=== PATIENT | female | born 1940 | race Caucasian/White ===

== ENCOUNTER 2016-06-15 13:10 | Observation (INO) | payer MEDICARE, OTHER ==
[~2016-06-15] VITALS: Ht 165.1 cm; Wt 94.0 kg
[~2016-06-15 13:10] MED LIST: AMIO200T2 PO; CLON0.2T5 PO; DIGO125T6 PO; ERGO500014 PO; FURO40TA4 PO; HYDR-3671 PO; LISI-313 PO; METF500T4 PO; METO-429 PO; METO-448 PO; PANT40TA4 PO; POTA8CAP PO; ROSU20TA PO; UDROBDM PO; URE25 PO; WARF2TAB PO
[2016-06-15] MEDS ORDERED: APIX2.5T PO (14:16)
[2016-06-15] MEDS ORDERED: FURO40TA4 PO (14:17)
[2016-06-15] MEDS ORDERED: AMIO200T2 PO (14:17)
[2016-06-15] MEDS ORDERED: DIGO125T6 PO (14:17)
[2016-06-15] MEDS ORDERED: LEVO88TA3 PO (14:18)
[2016-06-15] MEDS ORDERED: LOSA50TA6 PO (14:18)
[2016-06-15] MEDS ORDERED: METF500T4 PO (14:18)
[2016-06-15] MEDS ORDERED: METO-429 PO (14:19)
[2016-06-15] MEDS ORDERED: METO50TA16 PO (14:19)
[2016-06-15] MEDS ORDERED: CRES10 PO (14:20)
[2016-06-15] MEDS ORDERED: POTA8CAP PO (14:20)
[2016-06-15 14:39] LABS: ADD SCAN DIFF NO
--- NOTE | 2016-06-15 14:39 | RADRPT ---
PROCEDURE: XR Chest. CLINICAL INDICATION: Chest pain TECHNIQUE: Chest AP portable. COMPARISON: 10/28/2015 FINDINGS: Left-sided AICD device The mediastinal structures are unremarkable. There is calcification of the thoracic aorta (consiste nt with atherosclerosis). There is moderate cardiac enlargement. There is pulmonary venous hyperte nsion. No consolidation is identified. The pleural spaces are unremarkable. There are senescent c hanges of the axial skeleton. IMPRESSION: Moderate cardiac enlargement. Pulmonary venous hypertension. RPTAT: HGDB .Jude Shah MD, MD Date Time Electronically viewed and signed by .Jude Shah MD, MD on 06/15/2016 14:38 .B/
[2016-06-15 14:44] LABS: ABNORMAL IP MESSAGE 1; BASOPHILS % 0.5 % (0.0-2.0); EOSINOPHILS # 0.1 10^3/ul (0.0-0.5); EOSINOPHILS % 2.1 % (0.0-7.0); HEMATOCRIT 35.3 % (37.0-47.0); LYMPHOCYTES # 0.4 10^3/ul (0.8-2.9); LYMPHOCYTES % 8.9 % (15.0-51.0); MEAN CORPUSCULAR HEMOGLOBIN 25.5 pg (29.0-33.0); MEAN CORPUSCULAR HGB CONC 31.2 g/dl (32.0-37.0); MEAN CORPUSCULAR VOLUME 81.9 fl (82.0-101.0); MONOCYTE # 0.4 10^3/ul (0.3-0.9); MONOCYTES % 9.1 % (0.0-11.0); NEUTROPHIL # 3.4 10^3/ul (1.6-7.5); NEUTROPHILS % 79.2 % (39.0-77.0); PLATELET COUNT 89 10^3/UL (140-415); RED BLOOD COUNT 4.31 10^6/ul (4.20-5.40); RED CELL DISTRIBUTION WIDTH 19.1 % (11.5-14.5); WHITE BLOOD COUNT 4.3 10^3/ul (4.8-10.8)
[2016-06-15 15:22] LABS: ALBUMIN 3.6 g/dl (3.3-4.9)
[2016-06-15 15:24] LABS: CREATININE 0.89 mg/dl (0.44-1.00)
[2016-06-15 15:25] LABS: ALBUMIN/GLOBULIN RATIO 0.87; BILIRUBIN,INDIRECT 0.8 mg/dl (0-1.1); BILIRUBIN,TOTAL 0.8 mg/dl (0.2-1.3); TOTAL PROTEIN 7.7 g/dl (6.1-8.1)
[2016-06-15 16:02] LABS: TROPONIN-I 0.013 ng/ml (0.00-0.12)
[2016-06-15] MEDS ORDERED: FUROSEMIDE 40 MG INJ IV ONE (16:30)
[2016-06-15 16:42] VITALS: TEMP 97.4
[2016-06-15] MEDS ORDERED: ACETAMINOPHEN 325 MG TAB PO PRN ×2 (17:00→17:30)
[2016-06-15] MEDS ORDERED: ONDANSETRON 4 MG INJ IV PRN ×2 (17:00→17:30)
--- NOTE | 2016-06-15 17:00 | ERA ---
ER Documentation Chief Complaint Date/Time DATE: 06/15/16 TIME: 16:49 Chief Complaint Complains of SOB x 2 weeks HPI This is 76-year-old female complains of gradual increasing shortness of breath on exertion and orthopnea. She also is complaining of the past 3 days of having some swelling to her legs. All these symptoms are new. No prior history of CHF. She says she has generalized weakness but no focal neurological complaints. No chest pain no cough no fever no decreased urine output. ROS All systems reviewed and are negative except as per history of present illness. Medications Home Meds Reported Medications Rosuvastatin Calcium* (Crestor*) 10 Mg Tablet, 10 MG PO QHS, #30 TAB 06/15/16 Potassium Chloride* (Potassium Chloride*) 8 Meq Capsule.er, 8 MEQ PO BID, CAP 06/15/16 Metoprolol Tartrate* (Lopressor*) 50 Mg Tab, 50 MG PO BID, #60 TAB 06/15/16 Metformin* (Glucophage*) 500 Mg Tab, 500 MG PO WITH BREAKFAST DINNE, #30 TAB 06/15/16 Losartan Potassium* (Losartan Potassium*) 50 Mg Tablet, 50 MG PO DAILY, TAB 06/15/16 Levothyroxine Sodium* (Levothyroxine Sodium*) 88 Mcg Tablet, 88 MCG PO BEFORE BREAKFAST, #30 TAB 06/15/16 Furosemide* (Furosemide*) 40 Mg Tablet, 40 MG PO DAILY, TAB 06/15/16 Amiodarone Hcl* (Amiodarone Hcl*) 200 Mg Tablet, 200 MG PO DAILY, #30 TAB 06/15/16 Digoxin* (Lanoxin*) 0.125 Mg Tablet, 0.125 MG PO DAILY, TAB 06/15/16 Apixaban* (Eliquis*) 2.5 Mg Tablet, 2.5 MG PO BID, TAB 06/15/16 Discontinued Reported Medications Metoprolol Succinate* (Toprol XL*) 50 Mg Tab.er.24h, MG PO DAILY, #30 TAB 06/15/16 Warfarin Sodium* (Coumadin*) 2 Mg Tablet, 4 MG PO DAILY, TAB 04/21/14 Warfarin Sodium* (Coumadin*) 2 Mg Tablet, 5 MG PO DAILY, TAB 04/21/14 Metoprolol Tartrate* (Lopressor*) 25 Mg Tab, 25 MG PO PM, TAB 04/21/14 Metoprolol Tartrate* (Lopressor*) 50 Mg Tab, 50 MG PO AM, TAB 04/21/14 Clonidine Hcl* (Clonidine Hcl*) 0.2 Mg Tablet, 0.2 MG PO BID, TAB 04/21/14 Hydralazine Hcl* (Hydralazine Hcl*) 25 Mg Tab, 25 MG PO Q8, TAB 04/21/14 Ergocalciferol* (Drisdol* (Vitamin D2)) 50,000 Unit Capsule, 48232 UNIT PO Q7D, CAP 04/21/14 Potassium Chloride* (Potassium Chloride*) 8 Meq Capsule.er, 8 MEQ PO BID, CAP 04/21/14 Rosuvastatin Calcium* (Crestor*) 20 Mg Tablet, 20 MG PO DAILY, TAB 04/21/14 Metformin* (Glucophage*) 500 Mg Tab, 500 MG PO BID, TAB 04/21/14 Lisinopril* (Lisinopril*) 5 Mg Tablet, 5 MG PO DAILY, TAB 04/21/14 Furosemide* (Furosemide*) 40 Mg Tablet, 40 MG PO DAILY, TAB 04/21/14 Digoxin* (Lanoxin*) 125 Mcg Tablet, 125 MCG PO DAILY 03/28/13 Amiodarone Hcl* (Amiodarone Hcl*) 200 Mg Tablet, 200 MG PO DAILY 03/28/13 Pantoprazole (Protonix) 40 Mg Tabec, 40 MG PO DAILY 03/28/13 Discontinued Scripts Guaifenesin-Dextromethorphan* (Robitussin* DM) 100MG/10MG/5ML Syrup, 10 ML PO Q6H Y for COUGH for 5 Days, ML Prov:MAYI MORALES PA-C 10/28/15 Bethanechol Chloride* (Urecholine*) 25 Mg Tab, 25 MG PO Q6, #100 TAB Prov:JÚNIOR KELLEY 04/28/14 Allergies Allergies: Coded Allergies: No Known Allergy (Unverified , 06/15/16) PMhx/Soc Medical and Surgical Hx: pt denies Surgical Hx History of Surgery: No Anesthesia Reaction: No Hx Neurological Disorder: No Hx Respiratory Disorders: No Hx Cardiac Disorders: Yes (Pacemaker placement ) Hx Psychiatric Problems: No Hx Miscellaneous Medical Probl: Yes (Anemia ) Hx Alcohol Use: No Hx Substance Use: No Hx Tobacco Use: No Smoking Status: Never smoker FmHx Family History: No coronary disease Physical Exam Vitals Vital Signs Date Time Temp Pulse Resp B/P Pulse Ox O2 Delivery O2 Flow Rate FiO2 06/15/16 16:42 97.4 80 18 146/69 100 Nasal Cannula 2.0 06/15/16 14:30 98.1 80 20 146/69 100 2.0 06/15/16 14:21 Nasal Cannula 2 06/15/16 13:28 2.0 06/15/16 13:17 99.6 80 20 143/63 95 Physical Exam Const: Well-developed, well-nourished Head: Atraumatic, normocephalic Eyes: Normal Conjunctiva, PERRLA, EOMI, normal sclera, no nystagmus ENT: Normal External Ears, Nose and Mouth, moist mucus membranes. Neck: Full range of motion. No meningismus, no lymphadenopathy. Resp: Clear to auscultation bilaterally, no wheezing, rhonchi, rales Cardio: Regular rate and rhythm, no murmurs, S1 S2 present Abd: Soft, non tender x 4, non distended. Normal bowel sounds, no guarding or rebound, no pulsitile abdominal masses or bruits Skin: No petechiae or rashes, no ecchymosis , no maculopapular rash Back: No midline or flank tenderness Ext: No cyanosis, slight edema bilateral legs left more than right, FROM x 4, normal inspection, neurovascularly intact x 4 Neur: Awake and alert, STR 5/5 x 4, sensation intact x 4, no focal findings, cerebellum intact Psych: Normal Mood and Affect Result Diagram: 06/15/16 1320 06/15/16 1320 Results 24 hrs Laboratory Tests Test 06/15/16 13:20 Alanine Aminotransferase (ALT/SGPT) 41IU/L Albumin 3.6g/dl Albumin/Globulin Ratio 0.87 Alkaline Phosphatase 113IU/L Anion Gap 17 Aspartate Amino Transf (AST/SGOT) 75IU/L B-Type Natriuretic Peptide 3590PG/ML Basophils # 0.010^3/ul Basophils % 0.5% Blood Urea Nitrogen 21mg/dl Calcium Level 9.0mg/dl Carbon Dioxide Level 27mmol/L Chloride Level 104mmol/L Creatinine 0.89mg/dl Direct Bilirubin 0.00mg/dl Eosinophils # 0.110^3/ul Eosinophils % 2.1% Globulin 4.10g/dl Glucose Level 175mg/dl Hematocrit 35.3% Hemoglobin 11.0g/dl Indirect Bilirubin 0.8mg/dl Lymphocytes # 0.410^3/ul Lymphocytes % 8.9% Mean Corpuscular Hemoglobin 25.5pg Mean Corpuscular Hemoglobin Concent 31.2g/dl Mean Corpuscular Volume 81.9fl Mean Platelet Volume fl Monocytes # 0.410^3/ul Monocytes % 9.1% Neutrophils # 3.410^3/ul Neutrophils % 79.2% Nucleated Red Blood Cells # 0.010^3/ul Nucleated Red Blood Cells % 0.0/100WBC Platelet Count 8910^3/UL Potassium Level 4.0mmol/L Red Blood Count 4.3110^6/ul Red Cell Distribution Width 19.1% Sodium Level 144mmol/L Total Bilirubin 0.8mg/dl Total Protein 7.7g/dl Troponin I 0.013ng/ml White Blood Count 4.310^3/ul Current Medications Medications (Trade) Dose Ordered Sig/Alistair Route PRN Reason Start Time Stop Time Status Last Admin Dose Admin Furosemide (Lasix) 40 mg ONCE ONCE IV 06/15/16 16:30 06/15/16 16:31 DC 06/15/16 16:36 Procedures/MDM PROCEDURE: XR Chest. CLINICAL INDICATION: Chest pain TECHNIQUE: Chest AP portable. COMPARISON: 10/28/2015 FINDINGS: Left-sided AICD device The mediastinal structures are unremarkable. There is calcification of the thoracic aorta (consistent with atherosclerosis). There is moderate cardiac enlargement. There is pulmonary venous hypertension. No consolidation is identified. The pleural spaces are unremarkable. There are senescent changes of the axial skeleton. IMPRESSION: Moderate cardiac enlargement. Pulmonary venous hypertension. RPTAT: HGDB .Jude Shah MD, MD Date Time Electronically viewed and signed by .Jude Shah MD, on 06/15/2016 14:38 .B/ CC: MAYRA DAY DO EKG: Rate/Rhythm: Electronic ventricular pacemaker heart rate 81 QRS, ST, QT: wide QRS, QT] Impression: [NORMAL EKG] Patient has elevated BNP of 3500. Patient is new onset CHF will admit for diuresis and cardiac workup Departure Diagnosis: Primary Impression: CHF (congestive heart failure) Qualified Code: I50.9 - Congestive heart failure, unspecified congestive heart failure chronicity, unspecified congestive heart failure type Condition: Stable MAYRA DAY DO Jun 15, 2016 16:59
[2016-06-15] MEDS ORDERED: hydrALAzine 20 MG INJ IV PRN (17:30)
[2016-06-15] MEDS ORDERED: GLUCAGON 1 MG INJ IM PRN (17:30)
[2016-06-15] MEDS ORDERED: GLUCOSE GEL 15 GRAM TUBE BUCCAL PRN (17:30)
[2016-06-15] MEDS ORDERED: GLUCOSE GEL 15 GRAM TUBE PO PRN ×2 (17:30)
[2016-06-15] MEDS ORDERED: MAGNESIUM HYDROXIDE 30ML CUP PO PRN (17:30)
[2016-06-15] MEDS ORDERED: HYDROCODONE/APAP (5/325) TAB PO PRN (17:30)
[2016-06-15] MEDS ORDERED: morphine 2 MG INJ IV PRN (17:30)
[2016-06-15] MEDS ORDERED: NACL 0.9% 3 ML SYG IV SCH (17:30)
[2016-06-15] MEDS ORDERED: DEXTROSE 50% 50 ML SYRINGE IV PRN ×2 (17:30)
[2016-06-15] MEDS ORDERED: BISACODYL (EC) 5 MG TAB PO PRN (17:30)
[2016-06-15] MEDS ORDERED: NITROGLYCERIN (SL) 0.4 MG TAB SL PRN (17:30)
[2016-06-15] MEDS: INSULIN ASPART [NOVOLOG] 3 ML PEN SC SCH ×2 (18:00→20:41)
[2016-06-15] MEDS ORDERED: LEVALBUTEROL (NEB) 0.31 MG/3 ML AMP HHN PRN (18:00)
[2016-06-15] MEDS: FUROSEMIDE 40 MG INJ IV SCH (18:00)
--- NOTE | 2016-06-15 18:18 | HP ---
DATE OF ADMISSION: 06/15/2016 TIME OF EVALUATION: 1700 hours. REASON FOR ADMISSION: Dyspnea. CONSULTATIONS: Dr. Mathew East, Cardiology. HISTORY OF PRESENT ILLNESS: This is a 76-year-old [place]oc[place] female with a known history of essential hypertension, type 2 diabetes mellitus, cardiomyopathy, atrial fibrillation, hypothyroidism, mild to moderate aortic stenosis, and sick sinus syndrome, status post pacemaker placement who came to the emergency room with chief complaint of dyspnea that has been going on for the past 2 weeks. The patient was also complaining of bilateral lower extremity edema for the past 3 days. The patient was complaining of a nonproductive cough. The patient denied any chest pain. The patient verbalized that she has been compliant with all her home medications. 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 The patient denied any fevers, chills, nausea, vomiting, abdominal pain, diarrhea, hematochezia or melena. She denied any dysuria, hematuria or urinary urgency or frequency. In the emergency room, the patient was noticed to have elevated BNP. The patient's chest x-ray showed moderate cardiac enlargement and pulmonary venous hypertension. The patient had an episode of mild febrile illness (99.6 degrees Fahrenheit) in the emergency room. The patient was treated with a single dose of IV Lasix in the emergency room. PAST MEDICAL HISTORY: Essential hypertension, type 2 diabetes mellitus, cardiomyopathy, atrial fibrillation, sick sinus syndrome, hypothyroidism, mild to moderate aortic stenosis. PAST SURGICAL HISTORY: Permanent pacemaker placement, back surgery. PAST HOME MEDICATIONS: 1. Eliquis 2.5 mg p.o. b.i.d. 2. Amiodarone 200 mg p.o. daily. 3. Digoxin 0.125 mg p.o. daily. 4. Losartan 50 mg p.o. daily. 5. Lopressor 50 mg p.o. b.i.d. 6. Crestor 10 mg p.o. at bedtime. 7. Lasix 40 mg p.o. daily. 8. Potassium chloride 8 mEq p.o. b.i.d. 9. Synthroid 88 mcg p.o. before breakfast. 10. Metformin 500 mg p.o. with breakfast and dinner. ALLERGIES: NO KNOWN DRUG ALLERGIES. SOCIAL HISTORY: The patient lives at home with her family. No recent history of tobacco, alcohol or illicit drug use. FAMILY HISTORY: Hypertension, diabetes, and CVA. REVIEW OF SYSTEMS: A 12-point review of systems was made, and review of systems was negative other than what is mentioned in history of present illness. PHYSICAL EXAMINATION: VITAL SIGNS: Temperature 97.4, pulse rate 80, respiratory rate 18, blood pressure 146/69, oxygen saturation 100% on 2 liters oxygen via nasal cannula. GENERAL: This is an obese [place] female sitting in bed in mild respiratory distress. HEENT: Normocephalic and atraumatic. Eyes: Anicteric sclerae. Conjunctivae clear. ENT: Nasal septum is midline. Oral mucosa is dry. NECK: Supple. No JVD noticed. RESPIRATORY: Bilaterally diminished breath sounds. Bilateral fine rales heard. Minimal use of accessory muscles of respiration. CARDIAC: Irregular rate and rhythm. Grade II to III/ systolic ejection murmur. GASTROINTESTINAL: Abdomen obese. Soft. Nondistended. Bowel sounds positive in all 4 quadrants. GENITOURINARY: Deferred. EXTREMITIES: No cyanosis, no clubbing. Bilateral lower extremity 2 to 3+ pitting edema. Peripheral pulses palpable. NEUROLOGIC: The patient is awake, alert and oriented. Cranial nerves are grossly intact. LABORATORY AND DIAGNOSTIC DATA: WBC 4.3, hemoglobin 11.0, hematocrit 37.3, platelet count 89. Sodium 144, potassium 4.0, chloride 104, carbon dioxide 27, anion gap 17, BUN 21, creatinine 0.89, glucose 175, calcium 9.0, AST 70, ALT 40 , alkaline phosphatase 113. Troponin I 0.013. BNP 359. Total protein 7.7, albumin 3.6. Chest x-ray: Moderate cardiac enlargement. Pulmonary venous hypertension. IMPRESSION: This is a 76-year-old [place]oc[place] female with multiple comorbidities who came to the emergency room with chief complaint of dyspnea, who was found to have evidence of congestive heart failure who will be admitted here for further treatment and evaluation. ASSESSMENT AND PLAN: 1. Acute respiratory failure. Hypoxic, most probably secondary to underlying congestive heart failure exacerbation. The patient will be maintained on supplemental oxygen. The patient will be maintained on p.r.n. inhaled bronchodilators. The patient will be adequately diuresed using diuretics. Cardiology consult will be obtained. 2. Acute on chronic congestive heart failure exacerbation. Systolic dysfunction. A 2D echocardiogram will be obtained to evaluate the left ventricular ejection fraction. Cardiology consult will be obtained. The patient will be carefully diuresed. 3. Essential hypertension. The patient's home antihypertensives will be resumed. The patient will also be started on p.r.n. antihypertensives for any systolic blood pressure readings greater than 160 mmHg. 4. Type 2 diabetes mellitus. The patient's metformin will be put on hold. The patient will be started on sliding scale insulin along with basal insulin and premeal insulin. Hemoglobin A1c will be obtained to evaluate the blood glucose control over the past few days. 5. Cardiomyopathy. The patient has a history of cardiomyopathy. The patient' s latest 2-D echocardiogram from 04/25/2014 showed ejection fraction of 50%. The patient is currently on ARBs and beta blockers, which will be continued. 6. Paroxysmal atrial fibrillation. The patient is currently on amiodarone. The patient is also on Apixaban for stroke prophylaxis. 7. Microcytic, hypochromic anemia. Etiology unclear. Will obtain an iron panel on this patient. We will monitor the H and H closely. 8. Thrombocytopenia. Etiology unclear. The patient has no evidence of any bleeding. The patient will be closely monitored for any bleeding. The patient is on therapeutic anticoagulation. 9. Mild to moderate aortic stenosis. The patient's volume status will be closely monitored. Rapid afterload reduction will be avoided. 10. Hypothyroidism. The patient will be resumed on Synthroid. A thyroid function panel will be obtained. Plan. The patient will be admitted to inpatient telemetry floor. The patient will be started on a carbohydrate controlled, low cholesterol diet. The patient will be started on gastrointestinal prophylaxis. The patient is already therapeutically anticoagulated. The patient will remain a FULL CODE. Activities will be as tolerated. The rest of the patient's management will be based on the clinical course, the results of diagnostic studies, as well as inputs from the consultants. Based on the patient's clinical presentation, she most probably requires at least a 2 midnights' stay for further management and evaluation of her clinical presentation. The case and management of this patient was fully discussed with Dr. Bennett. Approximately 60 minutes were spent on the history and physical on this patient. MARTY BENNETT MD, AM/NTS Conf#: [id number] DID#: [id number] CC: MATHEW EAST MD;*End* [facility]
--- NOTE | 2016-06-15 18:39 | CONS ---
DATE OF ADMISSION: 06/15/2016 DATE OF CONSULTATION: 06/15/2016 REASON FOR CONSULTATION: Congestive heart failure exacerbation. REQUESTING PHYSICIAN: Dr. Dave from the hospitalist service and Gama Velez from the hospita list service. HISTORY OF PRESENT ILLNESS: Ms. Albrecht is a 76-year-old female with history of cardiomyopathy with decreased left ventricular ejection fraction, last one approximately 50% by echo in 2013, prior to that it was 35%, permanent pacemaker/AICD placement, hypertension, atrial fibrillation, dyslipid emia, hypothyroidism who presents with 3 days of increasing shortness of breath, swelling of lower e xtremities and symptoms consistent with orthopnea. Upon arrival, temperature of 99.6, blood pressur e 143/63, pulse 80, respiratory 20, saturating 95%. Patient's labs showed white count 4.3, hemoglob in 11.0, platelet count 89. Sodium 144, potassium 4.0, creatinine 0.89, BUN 21, AST 75, ALT 41, tro ponin negative. BNP of 3590. The patient underwent a chest x-ray revealing moderate cardiac enlarg ement, pulmonary venous hypertension. The patient's electrocardiogram was ventricular paced rate of 81. The patient denied chest pain. The patient thus far has been treated with Lasix 40 mg IV x1, Zofran and Tylenol. PAST MEDICAL HISTORY: As above in HPI. MEDICATIONS CURRENTLY IN HOSPITAL: 1. Amiodarone 200 mg daily. 2. Digoxin 0.125 mg daily. 3. Cozaar 50 mg daily. 4. Synthroid 88 mcg daily. 5. Pepcid 10 mg q.6h. 6. Apixaban 2.5 mg p.o. b.i.d. 6. Lopressor 50 mg b.i.d. 7. Lipitor 40 mg at bedtime. 8. Lantus. 9. Lasix 40 mg IV b.i.d. 10. Insulin sliding scale. 11. Xopenex. 12. Sublingual nitroglycerin p.r.n. 13. Tram p.r.n. 14. Morphine p.r.n. 15. Dulcolax p.r.n. 16. Hydralazine p.r.n. ALLERGIES: NO KNOWN DRUG ALLERGIES. SOCIAL HISTORY: No tobacco, ETOH or illicit drug use. FAMILY HISTORY: No history of sudden cardiac or early CAD. REVIEW OF SYSTEMS: As above in HPI. CONSTITUTIONAL: No fevers, chills. PULMONARY: Shortness of breath. CARDIOVASCULAR: Congestive heart failure. GASTROINTESTINAL: No vomiting. GENITOURINARY: No hematuria. MUSCULOSKELETAL: Degenerative joint disease. PSYCHIATRIC: The patient denies depression. NEUROLOGIC: No documented history of CVA. PHYSICAL EXAMINATION VITAL SIGNS: Temperature 97.4, blood pressure 146/65, pulse 80, respiratory rate 18, saturation 100 %. GENERAL: The patient is alert, awake, complaining of shortness of breath and orthopnea. NECK: JVP approximately 9 to 10 cm water. CHEST: Bibasilar crackles. HEART: Regular rate and rhythm. Normal S1, S2, I/ systolic murmur. ABDOMEN: Positive bowel sounds, soft. EXTREMITIES: 1 to 2+ edema bilaterally, 1+ pulses bilaterally posterior tibial. LABORATORY DATA: As above in HPI. No further labs for my review at this time. IMAGING STUDIES: As above in HPI. No further imaging studies for my review at this time. ECG: As above in HPI. No further electrocardiograms for my review at this time. IMPRESSION: 1. Congestive heart failure, question at this time systolic versus diastolic, acute on chronic like ly. 2. Hypertension. 3. History of cardiomyopathy with most recently having a preserved left ventricular ejection of low er limits at 50% in 2014. 4. History of permanent pacemaker, question ICD. 5. History of cardiac arrhythmia with atrial fibrillation on amiodarone and Apixaban. 6. Dyslipidemia. 7. Diabetes mellitus. 8. Hypothyroidism. 9. Anemia. 10. Increased BNP, consistent with patient's congestive heart failure exacerbation. RECOMMENDATIONS: 1. At this time would admit patient to telemetry monitoring to follow rhythm and rate control close ly. 2. Complete a rule out for myocardial infarction to ensure the patient's constellation of symptoms are not due to any recent acute coronary syndrome such as acute myocardial infarction. 3. Would continue the patient's Lasix diuresis that has been ordered, following strict I's and O's. Grade diuresis closely. 4. Check a 2D echo to reassess patient's ejection fraction, wall motion, rule out any major valve a bnormalities. 5. Would check serial EKGs to assess for any significant ongoing changes, thus repeat EKG in the mo rning, EKG for any complaints of chest pain or change in rhythm. 6. Follow strict I's and O's. Grade the patient's diuresis closely. 7. Continue the patient's current amiodarone in an attempt to maintain sinus rhythm and Apixaban to prevent thromboembolic complications in the setting of paroxysmal atrial fibrillation. 8. Check a digoxin level and continue the patient's digoxin as necessary. 9. Further workup and treatment based on low dose ongoing clinical issues per PMD and alternative c onsultations. Thank you for allowing me to take part in the care of this patient. I will continue to follow very closely with you with further recommendations to be made as the patient progresses through her [facility] clinical course. Dictated By: MATHEW BACH/JARRELL Conf#: [id number] DID#: [id number] CC: GAMA VELEZ NP; NACHO DAVE MD;*End*
[2016-06-15 19:19] VITALS: PULSE 79
[2016-06-15 19:50] VITALS: BP 146/59; RESP 18
[2016-06-15 20:30] VITALS: Ht 165.1 cm; Wt 94.0 kg
[2016-06-15] MEDS: FAMOTIDINE 20 MG TAB PO SCH (20:42)
[2016-06-15] MEDS: ATORVASTATIN 40 MG TAB PO SCH (20:42)
[2016-06-15] MEDS: APIXABAN 5 MG TABLET PO SCH (20:42)
[2016-06-15] MEDS: METOPROLOL 50 MG TAB PO SCH (20:43)
[2016-06-15 20:59] VITALS: PULSE 80
[2016-06-15 21:04] LABS: INR 1.22; PROTIME 15.5 Sec (12.2-14.2); PT RATIO 1.2
[2016-06-15 21:05] LABS: PARTIAL THROMBOPLASTIN TIME 36.4 Sec (25.0-35.0)
[2016-06-15 21:07] LABS: IRON 54 ug/dl (35-150)
[2016-06-15 21:15] LABS: CK-MB 0.63 ng/ml (0.0-2.4)
[2016-06-15 21:16] LABS: TOTAL IRON BINDING CAPACITY 324 ug/dl (241-421)
[2016-06-15 21:18] LABS: TROPONIN-I 0.018 ng/ml (0.00-0.12)
[2016-06-15 21:37] LABS: THYROID STIMULATING HORMONE 10.1 MIU/L (0.465-4.680)
[2016-06-15] MEDS: INSULIN GLARGINE [LANtus] 3 ML PEN SC SCH (22:02)
[2016-06-16] VITALS (12 sets, daily range): BP systolic 110–135; BP diastolic 54–80; PULSE 80; RESP 15–20
[2016-06-16 02:27] LABS: URINE BILIRUBIN (Dip) NEGATIVE (NEGATIVE); URINE COLOR LT. YELLOW (YELLOW); URINE GLUCOSE (Dip) NEGATIVE (NEGATIVE); URINE KETONES (Dip) NEGATIVE (NEGATIVE); URINE LEUKOCYTE ESTERASE (Dip) NEGATIVE (NEGATIVE); URINE NITRITE (Dip) NEGATIVE (NEGATIVE); URINE TOTAL PROTEIN (Dip) NEGATIVE (NEGATIVE); URINE UROBILINOGEN (Dip) 0.2 E.U./dL (0.1-1.0)
[2016-06-16 02:28] LABS: ADD UMIC NO; URINE BLOOD (Dip) NEGATIVE (NEGATIVE)
[2016-06-16] MEDS: FUROSEMIDE 40 MG INJ IV SCH ×2 (05:34→17:36)
[2016-06-16] MEDS: LEVOTHYROXINE 88 MCG TAB PO SCH (06:16)
[2016-06-16 06:32] LABS: ABNORMAL IP MESSAGE 1; BASOPHILS % 0.7 % (0.0-2.0); EOSINOPHILS # 0.1 10^3/ul (0.0-0.5); EOSINOPHILS % 2.3 % (0.0-7.0); HEMATOCRIT 33.8 % (37.0-47.0); HEMOGLOBIN 10.4 g/dl (12.0-16.0); LYMPHOCYTES # 0.5 10^3/ul (0.8-2.9); LYMPHOCYTES % 12.4 % (15.0-51.0); MEAN CORPUSCULAR HEMOGLOBIN 25.1 pg (29.0-33.0); MEAN CORPUSCULAR HGB CONC 30.8 g/dl (32.0-37.0); MEAN CORPUSCULAR VOLUME 81.6 fl (82.0-101.0); MONOCYTE # 0.5 10^3/ul (0.3-0.9); MONOCYTES % 10.7 % (0.0-11.0); NEUTROPHIL # 3.1 10^3/ul (1.6-7.5); NEUTROPHILS % 73.4 % (39.0-77.0); PLATELET COUNT 98 10^3/UL (140-415); RED BLOOD COUNT 4.14 10^6/ul (4.20-5.40); WHITE BLOOD COUNT 4.3 10^3/ul (4.8-10.8)
[2016-06-16 06:50] LABS: ALBUMIN 3.2 g/dl (3.3-4.9)
[2016-06-16 06:51] LABS: POTASSIUM 3.7 mmol/L (3.5-5.1)
[2016-06-16 06:53] LABS: BILIRUBIN,INDIRECT 1.1 mg/dl (0-1.1); BILIRUBIN,TOTAL 1.1 mg/dl (0.2-1.3); CREATININE 0.95 mg/dl (0.44-1.00); MAGNESIUM 1.7 mg/dl (1.7-2.5); PHOSPHORUS 3.4 mg/dl (2.5-4.9)
[2016-06-16 06:54] LABS: ALBUMIN/GLOBULIN RATIO 0.88; CALCIUM 8.8 mg/dl (8.4-10.2); CHOL/HDL RATIO 5.1 RATIO; TOTAL PROTEIN 6.8 g/dl (6.1-8.1)
[2016-06-16 07:27] LABS: ADD SCAN DIFF HOLD/SCAN
[2016-06-16] MEDS: INSULIN ASPART [NOVOLOG] 3 ML PEN SC SCH ×7 (07:32→21:00)
[2016-06-16] MEDS: LOSARTAN 50 MG TAB PO SCH (09:06)
[2016-06-16] MEDS: DIGOXIN 0.125 MG TAB PO SCH (09:07)
[2016-06-16] MEDS: AMIODARONE 200 MG TAB PO SCH (09:07)
[2016-06-16] MEDS: APIXABAN 5 MG TABLET PO SCH ×2 (09:08→21:17)
[2016-06-16] MEDS: FAMOTIDINE 20 MG TAB PO SCH ×2 (09:08→21:18)
[2016-06-16] MEDS: METOPROLOL 50 MG TAB PO SCH ×2 (09:08→21:16)
--- NOTE | 2016-06-16 09:45 | PN ---
Date/Time of Note Date/Time of Note DATE: 06/16/16 TIME: 09:42 Assessment/Plan VTE Prophylaxis VTE Prophylaxis Intervention: other (Factor Xa inhibitors) Lines/Catheters IV [facility]from [facility] Urinary Cath still in place: No Assessment/Plan Chief Complaint/Hosp Course 1. Acute respiratory failure. Hypoxic. Most probably secondary to underlying congestive heart failure exacerbation. The patient will be maintained on supplemental oxygen. The patient will be maintained on p.r.n. inhaled bronchodilators. The patient will be adequately diuresed using diuretics. Cardiology following. 2. Acute on chronic congestive heart failure exacerbation. Systolic dysfunction. Pending 2D echocardiogram. The patient will be carefully diuresed. 3. Essential hypertension. Continue routine antihypertensives and p.r.n. antihypertensives for any systolic blood pressure readings greater than 160 mmHg. 4. Type 2 diabetes mellitus. Continue sliding scale insulin along with basal insulin and pre-meal insulin. Hemoglobin A1c 6.5. 5. Cardiomyopathy. The patient has a history of cardiomyopathy. The patient' s latest 2-D echocardiogram from 04/25/2014 showed ejection fraction of 50%. The patient is currently on ARBs and beta blockers, which will be continued. 6. Paroxysmal atrial fibrillation. The patient is currently on amiodarone. The patient is also on Apixaban for stroke prophylaxis. 7. Microcytic, hypochromic anemia. Etiology unclear. Iron panel showing low iron saturation. We will monitor the H and H closely. 8. Thrombocytopenia. Etiology unclear. The patient has no evidence of any bleeding. The patient will be closely monitored for any bleeding. The patient is on therapeutic anticoagulation. 9. Mild to moderate aortic stenosis. The patient's volume status will be closely monitored. Rapid afterload reduction will be avoided. 10. Hypothyroidism. The patient will be continued on Synthroid. 11. Fluids, electrolytes, and nutrition. Carbohydrate controlled, low- cholesterol diet 12. DVT prophylaxis. On factor Xa inhibitors. 13. Gastrointestinal prophylaxis. Histamine 2 receptor blockers. 14. Plan. Continue diuresis. Continue to optimize cardiac medications. Case discussed with Dr. Bennett. Problems: Subjective 24 Hr Interval Summary Free Text/Dictation Denies any chest pain. Breathing better. Exam/Review of Systems Vital Signs Vitals Vital Signs Date Time Temp Pulse Resp B/P Pulse Ox O2 Delivery O2 Flow Rate FiO2 06/16/16 08:20 80 06/16/16 07:18 98.8 20 128/60 95 06/16/16 01:48 2.0 28 06/15/16 18:30 Room Air Intake and Output 06/15/16 06/15/16 06/16/16 15:00 23:00 07:00 Intake Total 480 ml Balance 480 ml Exam GENERAL: This is an obese [place] female sitting in bed in no apparent distress. HEENT: Normocephalic and atraumatic. Eyes: Anicteric sclerae. Conjunctivae clear. ENT: Nasal septum is midline. Oral mucosa is dry. NECK: Supple. No JVD noticed. RESPIRATORY: Bilaterally diminished breath sounds. Bilateral fine rales heard. No use of accessory muscles of respiration. CARDIAC: Irregular rate and rhythm. Grade II to III/ systolic ejection murmur. GASTROINTESTINAL: Abdomen obese. Soft. Nondistended. Bowel sounds positive in all 4 quadrants. GENITOURINARY: Deferred. EXTREMITIES: No cyanosis, no clubbing. Bilateral lower extremity 2+ pitting edema. Peripheral pulses palpable. NEUROLOGIC: The patient is awake, alert and oriented. Cranial nerves are grossly intact. Results Result Diagram: 06/16/16 0550 06/16/16 0550 Results 24 hrs Laboratory Tests Test 06/15/16 13:20 06/15/16 20:10 06/15/16 20:20 06/15/16 21:30 Alanine Aminotransferase (ALT/SGPT) 41 Albumin 3.6 Albumin/Globulin Ratio 0.87 Alkaline Phosphatase 113 Anion Gap 17 H Aspartate Amino Transf (AST/SGOT) 75 H B-Type Natriuretic Peptide 3590 H Basophils # 0.0 Basophils % 0.5 Blood Urea Nitrogen 21 H Calcium Level 9.0 Carbon Dioxide Level 27 Chloride Level 104 Creatinine 0.89 Direct Bilirubin 0.00 Eosinophils # 0.1 Eosinophils % 2.1 Globulin 4.10 H Glucose Level 175 Hematocrit 35.3 L Hemoglobin 11.0 L Indirect Bilirubin 0.8 Lymphocytes # 0.4 L Lymphocytes % 8.9 L Mean Corpuscular Hemoglobin 25.5 L Mean Corpuscular Hemoglobin Concent 31.2 L Mean Corpuscular Volume 81.9 L Mean Platelet Volume Monocytes # 0.4 Monocytes % 9.1 Neutrophils # 3.4 Neutrophils % 79.2 H Nucleated Red Blood Cells # 0.0 Nucleated Red Blood Cells % 0.0 Platelet Count 89 L Potassium Level 4.0 Red Blood Count 4.31 Red Cell Distribution Width 19.1 H Sodium Level 144 Total Bilirubin 0.8 Total Protein 7.7 Troponin I 0.013 0.018 White Blood Count 4.3 #L Bedside Glucose 107 Activated Partial Thromboplast Time 36.4 H Creatine Kinase 43 Creatine Kinase Index 1.5 Creatinine Kinase MB (Mass) 0.63 Digoxin Level 0.9 L Ferritin 39.5 Free Thyroxine 2.09 Hemoglobin A1c 6.5 H INR International Normalized Ratio 1.22 Iron Level 54 Percent Iron Saturation 17 L Prothrombin Time 15.5 H Prothrombin Time Ratio 1.2 Thyroid Stimulating Hormone (TSH) 10.100 H Total Iron Binding Capacity 324 Vitamin D 1,25-Dihydroxy 35.4 Urine Bilirubin NEGATIVE Urine Clarity CLEAR Urine Color LT. YELLOW Urine Glucose NEGATIVE Urine Hemoglobin NEGATIVE Urine Ketones NEGATIVE Urine Leukocyte Esterase NEGATIVE Urine Nitrite NEGATIVE Urine Specific [place] 1.010 Urine Total Protein NEGATIVE Urine Urobilinogen 0.2 E.U./dL Urine pH 6.5 Test 06/16/16 05:50 06/16/16 07:31 Alanine Aminotransferase (ALT/SGPT) 44 Albumin 3.2 L Albumin/Globulin Ratio 0.88 Alkaline Phosphatase 100 Anion Gap 15 Aspartate Amino Transf (AST/SGOT) 72 H B-Type Natriuretic Peptide 4320 H Basophils # 0.0 Basophils % 0.7 Blood Urea Nitrogen 20 Calcium Level 8.8 Carbon Dioxide Level 29 Chloride Level 105 Cholesterol Level 143 Cholesterol/HDL Ratio 5.1 Creatinine 0.95 Direct Bilirubin 0.00 Eosinophils # 0.1 Eosinophils % 2.3 Globulin 3.60 H Glucose Level 114 # HDL Cholesterol 28 L Hematocrit 33.8 L Hemoglobin 10.4 L Indirect Bilirubin 1.1 LDL Cholesterol, Calculated 91 Lymphocytes # 0.5 L Lymphocytes % 12.4 L Magnesium Level 1.7 Mean Corpuscular Hemoglobin 25.1 L Mean Corpuscular Hemoglobin Concent 30.8 L Mean Corpuscular Volume 81.6 L Mean Platelet Volume Monocytes # 0.5 Monocytes % 10.7 Neutrophils # 3.1 Neutrophils % 73.4 Nucleated Red Blood Cells # 0.0 Nucleated Red Blood Cells % 0.0 Phosphorus Level 3.4 Platelet Count 98 L Potassium Level 3.7 Red Blood Count 4.14 L Red Cell Distribution Width 19.0 H Sodium Level 145 H Total Bilirubin 1.1 Total Protein 6.8 Triglycerides Level 122 White Blood Count 4.3 L Bedside Glucose 116 Medications Medications Current Medications Ondansetron HCl (Zofran Inj) 4 mg Q6H PRN IV NAUSEA AND/OR VOMITING; Start 06/15 at 17:30 Nitroglycerin (Nitroglycerin (Sl Tab) 0.4 Mg) 1 tab Q5M PRN SL CHEST PAIN; Start 06/15/16 at 17:30 Acetaminophen (Tylenol Tab) 650 mg Q6H PRN PO PAIN LEVEL 1-3 OR FEVER; Start at 17:30 Acetaminophen/ Hydrocodone Bitart ([place] (5/325)) 1 tab Q6H PRN PO PAIN LEVEL 4 -6; Start 06/15/16 at 17:30 Morphine Sulfate (morphine) 2 mg Q4H PRN IV PAIN LEVEL 7-10; Start 06/15/16 at 17:30 Magnesium Hydroxide (Milk Of Mag) 30 ml DAILY PRN PO CONSTIPATION; Start at 17:30 Bisacodyl (Dulcolax) 5 mg DAILY PRN PO CONSTIPATION; Start 06/15/16 at 17:30 Famotidine (Pepcid) 10 mg Q12 PO Last administered on 06/16/16 09:08; Admin Dose 10 MG; Start 06/15/16 at 21:00 Amiodarone HCl (Cordarone) 200 mg DAILY PO Last administered on 06/16/16 09:07 ; Admin Dose 200 MG; Start 06/16/16 at 09:00 Apixaban (Eliquis) 2.5 mg BID PO Last administered on 06/16/16 09:08; Admin Dose 2.5 MG; Start 06/15/16 at 21:00 Digoxin (Digoxin) 0.125 mg DAILY PO Last administered on 06/16/16 09:07; Admin Dose 0.125 MG; Start 06/16/16 at 09:00 Losartan Potassium (Cozaar) 50 mg DAILY PO Last administered on 06/16/16 09:06 ; Admin Dose 50 MG; Start 06/16/16 at 09:00 Metoprolol Tartrate (Lopressor) 50 mg BID PO Last administered on 06/16/16 09: 08; Admin Dose 50 MG; Start 06/15/16 at 21:00 Atorvastatin Calcium (Lipitor) 40 mg DAILY@21 PO Last administered on 06/15/16 20:42; Admin Dose 40 MG; Start 06/15/16 at 21:00 Hydralazine HCl (Apresoline) 10 mg Q6H PRN IV SBP>160; Start 06/15/16 at 17:30 Insulin Glargine (Lantus) 9 unit DAILY@20 SC Last administered on 06/15/16 22: 02; Admin Dose 9 UNIT; Start 06/15/16 at 20:00 Miscellaneous Information 1 ea NOTE XX ; Start 06/15/16 at 17:30 Glucose (Glutose) 15 gm Q15M PRN PO DECREASED GLUCOSE; Start 06/15/16 at 17:30 Glucose (Glutose) 22.5 gm Q15M PRN PO DECREASED GLUCOSE; Start 06/15/16 at 17:30 Dextrose (D50w Syringe) 25 ml Q15M PRN IV DECREASED GLUCOSE; Start 06/15/16 at 17:30 Dextrose (D50w Syringe) 50 ml Q15M PRN IV DECREASED GLUCOSE; Start 06/15/16 at 17:30 Glucagon (Glucagen) 1 mg Q15M PRN IM DECREASED GLUCOSE; Start 06/15/16 at 17:30 Glucose (Glutose) 15 gm Q15M PRN BUCCAL DECREASED GLUCOSE; Start 06/15/16 at 17: 30 MARTY HOLLAND NP Jun 16, 2016 09:45
--- NOTE | 2016-06-16 14:43 | CONS ---
Date/Time of Note Date/Time of Note DATE: 06/16/16 TIME: 14:40 Assessment/Plan Assessment/Plan Chief Complaint/Hosp Course IMPRESSION: 1. Congestive heart failure, question at this time systolic versus diastolic, acute on chronic likely. 2. Hypertension. 3. History of cardiomyopathy with most recently having a preserved left ventricular ejection of lower limits at 50% in 2013. 4. History of permanent pacemaker, question ICD.-V pacing 100% 5. History of cardiac arrhythmia with atrial fibrillation on amiodarone and Apixaban. 6. Dyslipidemia. 7. Diabetes mellitus. 8. Hypothyroidism. 9. Anemia. 10. Increased BNP, consistent with patient's congestive heart failure exacerbation. 11.Edema-assymetric L>R Recc: -Tele -serial ecg's -Continue BB/ACEI -Continue eliquis -Venous BART to rule out DVT -Continue statin Problems: Consultation Date/Type/Reason Admit Date/Time Jun 15, 2016 at 16:48 Initial Consult Date 06/15/16 Type of Consultation: Cardiology Reason for Consultation CHF/cardiomyopathy Referring Provider: MARTY HOLLAND THERAPEUTIC PROGRAM WORKER Exam/Review of Systems Vital Signs Vitals Vital Signs Date Time Temp Pulse Resp B/P Pulse Ox O2 Delivery O2 Flow Rate FiO2 06/16/16 12:35 80 06/16/16 11:16 98.7 20 116/57 96 06/16/16 07:45 Nasal Cannula 2.0 06/16/16 01:48 28 Intake and Output 06/15/16 06/15/16 06/16/16 15:00 23:00 07:00 Intake Total 480 ml Balance 480 ml Exam Review of Systems: CONSTITUTIONAL: No fevers, chills. PULMONARY: No sob CARDIOVASCULAR: No chest pain/palpitations GASTROINTESTINAL: No nausea/vomiting. GENITOURINARY: No hematuria/dysuria. MUSCULOSKELETAL: No myagias/arthalgias. PSYCHIATRIC: The patient denies depression. NEUROLOGIC: No weakness Constitutional: alert Psych: no complaints Head: normocephalic ENMT: mucosa pink and moist Neck: jvd (9 cm water) Respiratory: diminished breath sounds (at bases/B) Cardiovascular: regular rate and rhythm Gastrointestinal: non-tender, soft Musculoskeletal: muscle tone (normal) Extremities: pitting pedal edema (assymetric) Neurological: other (No focal deficits) Results Result Diagram: 06/16/16 0550 06/16/16 0550 Results 24 hrs Laboratory Tests Test 06/15/16 20:10 06/15/16 20:20 06/15/16 21:30 06/16/16 05:50 Bedside Glucose 107 Activated Partial Thromboplast Time 36.4 H Creatine Kinase 43 Creatine Kinase Index 1.5 Creatinine Kinase MB (Mass) 0.63 Digoxin Level 0.9 L Ferritin 39.5 Free Thyroxine 2.09 Hemoglobin A1c 6.5 H INR International Normalized Ratio 1.22 Iron Level 54 Percent Iron Saturation 17 L Prothrombin Time 15.5 H Prothrombin Time Ratio 1.2 Thyroid Stimulating Hormone (TSH) 10.100 H Total Iron Binding Capacity 324 Troponin I 0.018 Vitamin D 1,25-Dihydroxy 35.4 Urine Bilirubin NEGATIVE Urine Clarity CLEAR Urine Color LT. YELLOW Urine Glucose NEGATIVE Urine Hemoglobin NEGATIVE Urine Ketones NEGATIVE Urine Leukocyte Esterase NEGATIVE Urine Nitrite NEGATIVE Urine Specific [place] 1.010 Urine Total Protein NEGATIVE Urine Urobilinogen 0.2 E.U./dL Urine pH 6.5 Alanine Aminotransferase (ALT/SGPT) 44 Albumin 3.2 L Albumin/Globulin Ratio 0.88 Alkaline Phosphatase 100 Anion Gap 15 Aspartate Amino Transf (AST/SGOT) 72 H B-Type Natriuretic Peptide 4320 H Basophils # 0.0 Basophils % 0.7 Blood Urea Nitrogen 20 Calcium Level 8.8 Carbon Dioxide Level 29 Chloride Level 105 Cholesterol Level 143 Cholesterol/HDL Ratio 5.1 Creatinine 0.95 Direct Bilirubin 0.00 Eosinophils # 0.1 Eosinophils % 2.3 Globulin 3.60 H Glucose Level 114 # HDL Cholesterol 28 L Hematocrit 33.8 L Hemoglobin 10.4 L Indirect Bilirubin 1.1 LDL Cholesterol, Calculated 91 Lymphocytes # 0.5 L Lymphocytes % 12.4 L Magnesium Level 1.7 Mean Corpuscular Hemoglobin 25.1 L Mean Corpuscular Hemoglobin Concent 30.8 L Mean Corpuscular Volume 81.6 L Mean Platelet Volume Monocytes # 0.5 Monocytes % 10.7 Neutrophils # 3.1 Neutrophils % 73.4 Nucleated Red Blood Cells # 0.0 Nucleated Red Blood Cells % 0.0 Phosphorus Level 3.4 Platelet Count 98 L Potassium Level 3.7 Red Blood Count 4.14 L Red Cell Distribution Width 19.0 H Sodium Level 145 H Total Bilirubin 1.1 Total Protein 6.8 Triglycerides Level 122 White Blood Count 4.3 L Test 06/16/16 06:30 06/16/16 07:31 06/16/16 11:32 Stool Occult Blood NEGATIVE Bedside Glucose 116 146 Medications Medications Current Medications Ondansetron HCl (Zofran Inj) 4 mg Q6H PRN IV NAUSEA AND/OR VOMITING; Start 06/15 at 17:30 Nitroglycerin (Nitroglycerin (Sl Tab) 0.4 Mg) 1 tab Q5M PRN SL CHEST PAIN; Start 06/15/16 at 17:30 Acetaminophen (Tylenol Tab) 650 mg Q6H PRN PO PAIN LEVEL 1-3 OR FEVER; Start at 17:30 Acetaminophen/ Hydrocodone Bitart ([place] (5/325)) 1 tab Q6H PRN PO PAIN LEVEL 4 -6; Start 06/15/16 at 17:30 Morphine Sulfate (morphine) 2 mg Q4H PRN IV PAIN LEVEL 7-10; Start 06/15/16 at 17:30 Magnesium Hydroxide (Milk Of Mag) 30 ml DAILY PRN PO CONSTIPATION; Start at 17:30 Bisacodyl (Dulcolax) 5 mg DAILY PRN PO CONSTIPATION; Start 06/15/16 at 17:30 Famotidine (Pepcid) 10 mg Q12 PO Last administered on 06/16/16 09:08; Admin Dose 10 MG; Start 06/15/16 at 21:00 Amiodarone HCl (Cordarone) 200 mg DAILY PO Last administered on 06/16/16 09:07 ; Admin Dose 200 MG; Start 06/16/16 at 09:00 Apixaban (Eliquis) 2.5 mg BID PO Last administered on 06/16/16 09:08; Admin Dose 2.5 MG; Start 06/15/16 at 21:00 Digoxin (Digoxin) 0.125 mg DAILY PO Last administered on 06/16/16 09:07; Admin Dose 0.125 MG; Start 06/16/16 at 09:00 Losartan Potassium (Cozaar) 50 mg DAILY PO Last administered on 06/16/16 09:06 ; Admin Dose 50 MG; Start 06/16/16 at 09:00 Metoprolol Tartrate (Lopressor) 50 mg BID PO Last administered on 06/16/16 09: 08; Admin Dose 50 MG; Start 06/15/16 at 21:00 Atorvastatin Calcium (Lipitor) 40 mg DAILY@21 PO Last administered on 06/15/16 20:42; Admin Dose 40 MG; Start 06/15/16 at 21:00 Hydralazine HCl (Apresoline) 10 mg Q6H PRN IV SBP>160; Start 06/15/16 at 17:30 Insulin Glargine (Lantus) 9 unit DAILY@20 SC Last administered on 06/15/16 22: 02; Admin Dose 9 UNIT; Start 06/15/16 at 20:00 Miscellaneous Information 1 ea NOTE XX ; Start 06/15/16 at 17:30 Glucose (Glutose) 15 gm Q15M PRN PO DECREASED GLUCOSE; Start 06/15/16 at 17:30 Glucose (Glutose) 22.5 gm Q15M PRN PO DECREASED GLUCOSE; Start 06/15/16 at 17:30 Dextrose (D50w Syringe) 25 ml Q15M PRN IV DECREASED GLUCOSE; Start 06/15/16 at 17:30 Dextrose (D50w Syringe) 50 ml Q15M PRN IV DECREASED GLUCOSE; Start 06/15/16 at 17:30 Glucagon (Glucagen) 1 mg Q15M PRN IM DECREASED GLUCOSE; Start 06/15/16 at 17:30 Glucose (Glutose) 15 gm Q15M PRN BUCCAL DECREASED GLUCOSE; Start 06/15/16 at 17: 30 MATHEW AMADO Jun 16, 2016 14:43
--- NOTE | 2016-06-16 15:25 | RADRPT ---
Echocardiogram Report Patient Name: TAMARA BERNSTEIN Gender: Female Date: 1940 Study Date: 16-Jun-2016 Marine Electronics Technician: [facility] Location: 501 Ref. Physician: MARTY HOLLAND Quality: Technically Difficult Study Procedures: Transthoracic echocardiogram with complete 2D, M-Mode, and doppler examination. Indications: Evaluate Left Ventricular function. 2D/M Mode Doppler Measurement Value Normal Ranges Measurement Value Normal Ranges LVIDd 2D 4.4 3.5 - 5.6 cm STEFAN Vmax 1.0 cm2 LVIDs 2D 3.3 2.1 - 4.1 cm STEFAN VTI 1.0 cm2 FS 2D 25.8 % AV Mean Ashutosh 2.6 m/sec LVPWd 2D 0.9 0.6 - 1.1 cm AV Mean PG 31.0 mmHg IVSd 2D 1.0 0.6 - 1.1 cm AV Peak Ashutosh 3.6 m/sec IVS/LVPW 2D 1.0 AV Peak PG 51.0 mmHg AoR Diam 2D 2.3 2.0 - 3.7 cm AV VTI 82.5 cm LA/Ao 2D 2 0 - 1 LVOT Mean Ashutosh 0.7 m/sec EDV 2D 88.1 cm3 LVOT Mean PG 2.0 mmHg ESV 2D 35.9 cm3 LVOT Peak Ashutosh 1.0 m/sec LA Dimen 2D 4.8 2.3 - 4.0 cm LVOT Peak PG 4.0 mmHg LVOT Diam 2.1 cm LVOT VTI 24.5 cm LVOT Area 3.5 cm2 MV E Peak Ashutosh 1.1 m/sec MV Decel Time 197 msec MR Peak PG 90.0 mmHg MR Peak Ashutosh 4.8 m/sec TR Peak Ashutosh 2.9 m/sec TR Peak PG 34.0 mmHg Findings Left Ventricle: Normal left ventricular cavity size. Left ventricular wall thickness upper limits of normal. Mild left ventricular systolic dysfunction. Ejection fraction is visually estimated at 40 %. Abnormal Diastolic Function. These segments of the LV are hypokinetic apical septum and apex. Right Ventricle: Mild right ventricular systolic dysfunction. Mild enlargement of right ventricle. Mild right ventricular hypokinesis. Pacemaker right heart. Left Atrium: There is moderate enlargement of left atrium. Right Atrium: There is moderate enlargement of right atrium. Mitral Valve: Mild mitral leaflet calcification. Mild mitral annular calcification. Mild mitral valve regurgitation. Aortic Valve: Mild aortic stenosis. Aortic valve Max velocity 3.57 m/sec. Max PG 51.00 mmHg. Mean PG 31.00 mmHg. Aortic valve area 1.03 cm2. Aortic cusps appear moderately calcified. Mild aortic valve regurgitation. Tricuspid Valve: Tricuspid valve not well visualized. Estimated peak PA systolic pressure 50 mmHg. There is mild tricuspid regurgitation. Pericardium: Left pleural effusion seen. Aorta: Normal aortic root. IVC: Dilated IVC with respiratory collapse consistent with elevated right atrial pressure. Conclusions 1.Normal left ventricular cavity size. Left ventricular wall thickness upper limits of normal. Mild left ventricular systolic dysfunction. Ejection fraction is visually estimated at 40 %. Abnormal Diastolic Function. These segments of the LV are hypokinetic apical septum and apex. 2.Mild right ventricular systolic dysfunction.. Mild enlargement of right ventricle. Mild right ventricular hypokinesis. Pacemaker right heart. 3.There is moderate enlargement of right atrium. 4.Mild mitral valve regurgitation. 5.Mild aortic stenosis. Mild aortic valve regurgitation. 6.Estimated peak PA systolic pressure 50 mmHg. There is mild tricuspid regurgitation. Electronically Signed By: Anthony East 16-Jun-2016 15:24:29 -0800 Patient Name: TAMARA BERNSTEIN Study Date: 16-Jun-[id number]
--- NOTE | 2016-06-16 17:19 | RADRPT ---
Vent Rate: 80 bpm RR Interval: 0 msec NM Interval: 0 msec QRS Duration: 188 msec QT Interval: 458 msec QTC Interval: 528 msec P-R-T [place]: 0 - -60 - 114 degrees Electronic ventricular pacemaker Electronically Signed By: Nic Ayon [id number]
[2016-06-16] MEDS: ATORVASTATIN 40 MG TAB PO SCH (21:16)
[2016-06-16] MEDS: INSULIN GLARGINE [LANtus] 3 ML PEN SC SCH (21:22)
[2016-06-17] VITALS (8 sets, daily range): BP systolic 111–131; BP diastolic 54–72; PULSE 79–80; RESP 18–20
--- NOTE | 2016-06-17 00:37 | RADRPT ---
PROCEDURE: Ultrasound of the bilateral lower extremity venous system. CLINICAL INDICATION: Bilateral leg pain and swelling, deep venous thrombosis TECHNIQUE: Silverman scale with and without compression, color doppler, spectral doppler of the venous system of the bilateral lower extremities was performed. Venous augmentation maneuvers were utilized . COMPARISON: No prior studies are available for comparison. FINDINGS: RIGHT: Common femoral vein: Patent. Superficial femoral vein: Patent. Popliteal vein: Patent. Calf veins: Patent. No soft tissue abnormalities are identified. LEFT: Common femoral vein: Patent. Superficial femoral vein: Patent. Popliteal vein: Patent. Calf veins: Patent. No soft tissue abnormalities are identified. IMPRESSION: No evidence of a deep vein thrombosis within the bilateral lower extremities. RPTAT: AADD .Feroz Hamm MD, MD Date Time Electronically viewed and signed by .Feroz Hamm MD, MD on 06/17/2016 00:37 .B/
[2016-06-17] MEDS: FUROSEMIDE 40 MG INJ IV SCH (06:19)
[2016-06-17] MEDS: LEVOTHYROXINE 88 MCG TAB PO SCH (06:21)
[2016-06-17 07:20] LABS: ADD SCAN DIFF NO
[2016-06-17 07:37] LABS: BASOPHILS % 0.3 % (0.0-2.0); EOSINOPHILS # 0.1 10^3/ul (0.0-0.5); EOSINOPHILS % 1.9 % (0.0-7.0); HEMATOCRIT 32.4 % (37.0-47.0); HEMOGLOBIN 10.6 g/dl (12.0-16.0); LYMPHOCYTES # 0.6 10^3/ul (0.8-2.9); LYMPHOCYTES % 13.1 % (15.0-51.0); MAGNESIUM 1.7 mg/dl (1.7-2.5); MEAN CORPUSCULAR HEMOGLOBIN 26.3 pg (29.0-33.0); MEAN CORPUSCULAR HGB CONC 32.9 g/dl (32.0-37.0); MEAN CORPUSCULAR VOLUME 80.1 fl (82.0-101.0); MEAN PLATELET VOLUME 11.2 fl (7.4-10.4); MONOCYTE # 0.5 10^3/ul (0.3-0.9); MONOCYTES % 10.9 % (0.0-11.0); NEUTROPHIL # 3.4 10^3/ul (1.6-7.5); NEUTROPHILS % 73.8 % (39.0-77.0); PHOSPHORUS 3.8 mg/dl (2.5-4.9); PLATELET COUNT 96 10^3/UL (140-440); POTASSIUM 3.8 mmol/L (3.5-5.1); RED BLOOD COUNT 4.04 10^6/ul (4.20-5.40); RED CELL DISTRIBUTION WIDTH 19.6 % (11.5-14.5); WHITE BLOOD COUNT 4.6 10^3/ul (4.8-10.8)
[2016-06-17 07:39] LABS: CREATININE 1.03 mg/dl (0.44-1.00)
[2016-06-17 07:40] LABS: CALCIUM 9.1 mg/dl (8.4-10.2)
[2016-06-17] MEDS: INSULIN ASPART [NOVOLOG] 3 ML PEN SC SCH ×4 (07:48→12:00)
[2016-06-17] MEDS: DIGOXIN 0.125 MG TAB PO SCH (08:38)
[2016-06-17] MEDS: AMIODARONE 200 MG TAB PO SCH (08:38)
[2016-06-17] MEDS: LOSARTAN 50 MG TAB PO SCH (08:39)
[2016-06-17] MEDS: FAMOTIDINE 20 MG TAB PO SCH (08:39)
[2016-06-17] MEDS: METOPROLOL 50 MG TAB PO SCH (08:39)
[2016-06-17] MEDS: APIXABAN 5 MG TABLET PO SCH (08:40)
--- NOTE | 2016-06-17 11:41 | PDOCDIS ---
Discharge Instructions DIAGNOSIS Discharge Diagnosis: CHF exacerbation. CONDITION Patient Condition: Stable HOME CARE INSTRUCTIONS: Special Diet: Cardiac, carbohydrate controlled OTHER ORDERS: Other Orders: 1. Take a low-cholesterol, carotid controlled diet. 2. Resume activities as tolerated. 3. Follow-up with Dr. East in 2 weeks. 4. Take medications as per prescription. 5. Please call 911 or go to the nearest emergency room if you have significant shortness of breath or chest pain. MARTY HOLLAND NP Jun 17, 2016 11:41
[2016-06-17] MEDS ORDERED: FURO40TA4 PO (11:43)
--- NOTE | 2016-06-17 13:56 | CONS ---
Date/Time of Note Date/Time of Note DATE: 06/17/16 TIME: 13:52 Assessment/Plan Assessment/Plan Chief Complaint/Hosp Course IMPRESSION: 1. Congestive heart failure, question at this time systolic versus diastolic, acute on chronic likely. 2. Hypertension. 3. History of cardiomyopathy with most recently having a preserved left ventricular ejection of lower limits at 50% in 2013. 4. History of permanent pacemaker, question ICD.-V pacing 100% 5. History of cardiac arrhythmia with atrial fibrillation on amiodarone and Apixaban. 6. Dyslipidemia. 7. Diabetes mellitus. 8. Hypothyroidism. 9. Anemia. 10. Increased BNP, consistent with patient's congestive heart failure exacerbation. 11.Edema-assymetric L>R Recc: -Tele -serial ecg's -Continue BB/ACEI -Continue eliquis -Continue statin -Continue lasix diuresis Problems: Consultation Date/Type/Reason Admit Date/Time Jun 15, 2016 at 16:48 Initial Consult Date 06/15/16 Type of Consultation: Cardiology Reason for Consultation CHF Referring Provider: MARTY HOLLAND ASSOCIATE PROFESSOR OF MEDIA ARTS Exam/Review of Systems Vital Signs Vitals Vital Signs Date Time Temp Pulse Resp B/P Pulse Ox O2 Delivery O2 Flow Rate FiO2 06/17/16 11:10 98.8 81 18 111/54 93 06/17/16 08:45 Nasal Cannula 2.0 06/16/16 01:48 28 Intake and Output 06/16/16 06/16/16 06/17/16 15:00 23:00 07:00 Intake Total 240 ml 400 ml Balance 240 ml 400 ml Exam Review of Systems: CONSTITUTIONAL: No fevers, chills. PULMONARY: mild sob CARDIOVASCULAR: No chest pain/palpitations GASTROINTESTINAL: No nausea/vomiting. GENITOURINARY: No hematuria/dysuria. MUSCULOSKELETAL: No myagias/arthalgias. PSYCHIATRIC: The patient denies depression. NEUROLOGIC: No weakness Constitutional: alert, oriented Psych: no complaints Head: normocephalic ENMT: mucosa pink and moist Neck: jvd (9 cm water), supple Respiratory: diminished breath sounds (at bases/B) Cardiovascular: regular rate and rhythm Gastrointestinal: non-tender, soft Musculoskeletal: muscle tone (normal) Extremities: edema (trace/B) Neurological: other (No focal deficits) Results Result Diagram: 06/17/16 0600 06/17/16 0600 Results 24 hrs Laboratory Tests Test 06/16/16 17:26 06/16/16 20:19 06/17/16 06:00 06/17/16 07:43 Bedside Glucose 140 167 119 Anion Gap 15 Basophils # 0.0 Basophils % 0.3 Blood Morphology Comment Blood Urea Nitrogen 24 H Calcium Level 9.1 Carbon Dioxide Level 32 H Chloride Level 101 Creatinine 1.03 H Eosinophils # 0.1 Eosinophils % 1.9 Glucose Level 152 Hematocrit 32.4 L Hemoglobin 10.6 L Lymphocytes # 0.6 L Lymphocytes % 13.1 L Magnesium Level 1.7 Mean Corpuscular Hemoglobin 26.3 L Mean Corpuscular Hemoglobin Concent 32.9 Mean Corpuscular Volume 80.1 L Mean Platelet Volume 11.2 H Monocytes # 0.5 Monocytes % 10.9 Neutrophils # 3.4 Neutrophils % 73.8 Nucleated Red Blood Cells # 0.0 Nucleated Red Blood Cells % 0.0 Phosphorus Level 3.8 Platelet Count 96 #L Potassium Level 3.8 Red Blood Count 4.04 L Red Cell Distribution Width 19.6 H Sodium Level 144 Troponin I 0.016 White Blood Count 4.6 L Test 06/17/16 11:21 Bedside Glucose 111 Medications Medications Current Medications Ondansetron HCl (Zofran Inj) 4 mg Q6H PRN IV NAUSEA AND/OR VOMITING; Start 06/15 at 17:30 Nitroglycerin (Nitroglycerin (Sl Tab) 0.4 Mg) 1 tab Q5M PRN SL CHEST PAIN; Start 06/15/16 at 17:30 Acetaminophen (Tylenol Tab) 650 mg Q6H PRN PO PAIN LEVEL 1-3 OR FEVER; Start at 17:30 Acetaminophen/ Hydrocodone Bitart ([place] (5/325)) 1 tab Q6H PRN PO PAIN LEVEL 4 -6; Start 06/15/16 at 17:30 Morphine Sulfate (morphine) 2 mg Q4H PRN IV PAIN LEVEL 7-10; Start 06/15/16 at 17:30 Magnesium Hydroxide (Milk Of Mag) 30 ml DAILY PRN PO CONSTIPATION; Start at 17:30 Bisacodyl (Dulcolax) 5 mg DAILY PRN PO CONSTIPATION; Start 06/15/16 at 17:30 Famotidine (Pepcid) 10 mg Q12 PO Last administered on 06/17/16 08:39; Admin Dose 10 MG; Start 06/15/16 at 21:00 Amiodarone HCl (Cordarone) 200 mg DAILY PO Last administered on 06/17/16 08:38 ; Admin Dose 200 MG; Start 06/16/16 at 09:00 Apixaban (Eliquis) 2.5 mg BID PO Last administered on 06/17/16 08:40; Admin Dose 2.5 MG; Start 06/15/16 at 21:00 Digoxin (Digoxin) 0.125 mg DAILY PO Last administered on 06/17/16 08:38; Admin Dose 0.125 MG; Start 06/16/16 at 09:00 Losartan Potassium (Cozaar) 50 mg DAILY PO Last administered on 06/17/16 08:39 ; Admin Dose 50 MG; Start 06/16/16 at 09:00 Metoprolol Tartrate (Lopressor) 50 mg BID PO Last administered on 06/17/16 08: 39; Admin Dose 50 MG; Start 06/15/16 at 21:00 Atorvastatin Calcium (Lipitor) 40 mg DAILY@21 PO Last administered on 21:16; Admin Dose 40 MG; Start 06/15/16 at 21:00 Hydralazine HCl (Apresoline) 10 mg Q6H PRN IV SBP>160; Start 06/15/16 at 17:30 Insulin Glargine (Lantus) 9 unit DAILY@20 SC Last administered on 06/16/16 21: 22; Admin Dose 9 UNIT; Start 06/15/16 at 20:00 Miscellaneous Information 1 ea NOTE XX ; Start 06/15/16 at 17:30 Glucose (Glutose) 15 gm Q15M PRN PO DECREASED GLUCOSE; Start 06/15/16 at 17:30 Glucose (Glutose) 22.5 gm Q15M PRN PO DECREASED GLUCOSE; Start 06/15/16 at 17:30 Dextrose (D50w Syringe) 25 ml Q15M PRN IV DECREASED GLUCOSE; Start 06/15/16 at 17:30 Dextrose (D50w Syringe) 50 ml Q15M PRN IV DECREASED GLUCOSE; Start 06/15/16 at 17:30 Glucagon (Glucagen) 1 mg Q15M PRN IM DECREASED GLUCOSE; Start 06/15/16 at 17:30 Glucose (Glutose) 15 gm Q15M PRN BUCCAL DECREASED GLUCOSE; Start 06/15/16 at 17: 30 MATHEW AMADO Jun 17, 2016 13:56
--- NOTE | 2016-06-17 16:30 | DS ---
DATE OF ADMISSION: 06/15/2016 DATE OF DISCHARGE: 06/17/2016 FINAL DIAGNOSES: 1. Acute respiratory failure. Hypoxic, secondary to congestive heart failure exacerbation. 2. Acute on chronic congestive heart failure exacerbation. Systolic dysfunction. 3. Essential hypertension. 4. Type 2 diabetes mellitus. 5. Cardiomyopathy. 6. Paroxysmal atrial fibrillation. 7. Microcytic, hypochromic anemia. 8. Thrombocytopenia. 9. Mild aortic stenosis. 10. Hypothyroidism. 11. Pulmonary hypertension. 12. Permanent pacemaker. CONSULTATIONS: Dr. Anthony East from cardiology. HOSPITAL COURSE: This is a 76-year-old Maltese female with a known history of essential hypertension, type 2 diabetes mellitus, cardiomyopathy, atrial fibrillation, hyperthyroidism, mild aortic stenosis, and sick sinus syndrome status post pacemaker, who came to the emergency room with a chief complaint of dyspnea that has been going on for 2 weeks. The patient was also complaining of bilateral lower extremity edema for a few days. The patient also was complaining of a nonproductive cough. The patient denied any chest pain. In the emergency room, the patient was noticed to have an elevated BNP. The patient's chest x-ray showed moderate cardiac enlargement and pulmonary venous hypertension. The patient was treated with a single dose of IV Lasix in the emergency room. Provided the patient's history of present illness and her comorbidities, the clinical decision was made to admit the patient to the inpatient setting to have her further evaluated. The patient was admitted to the inpatient telemetry floor. A cardiology consult was called on this patient. The patient was started on supplemental oxygen and p.r.n. inhaled bronchodilators. The patient was started on aggressive diuresis. The patient' s acute respiratory failure was concluded to be secondary to congestive heart failure exacerbation, systolic dysfunction. The patient's symptomatology responded well to aggressive diuresis. The patient underwent a 2D echocardiogram that showed an ejection fraction of 40%. The patient's 2D echocardiogram also showed a PA systolic pressure of 50 mmHg, indicating pulmonary hypertension. The patient was maintained on supplemental oxygen for the same. The patient has underlying essential hypertension. The patient was maintained on antihypertensives for the same. The patient has cardiomyopathy with an ejection fraction of 40%. The patient was maintained on ARBs and beta blockers for the same. The patient has a history of paroxysmal atrial fibrillation. The patient was maintained on amiodarone. The patient was maintained Apixaban for stroke prophylaxis. The patient was noticed to have microcytic, hypochromic anemia. The patient's iron panel showed low iron saturation. The patient was also noticed to have thrombocytopenia. The etiology of this was unclear. The patient had no evidence of any active bleeding. The patient was noticed to have mild aortic stenosis per 2D echocardiogram. The patient has underlying hypothyroidism. The patient was maintained on Synthroid for the same. The patient has type 2 diabetes mellitus. The patient was maintained on sliding-scale insulin for the same. The patient's hemoglobin A1c was 6.5. The patient underwent a stable hospital course. The patient was cleared by the consultants to be discharged home. The patient denied any complaints at the time of discharge. DISCHARGE DISPOSITION/PLAN: The patient will be discharged home today. The patient was instructed to a low cholesterol and carbohydrate controlled diet as tolerated. The patient was instructed to resume her activities as tolerated. The patient was instructed to follow up with Dr. East in 2 weeks. The patient was instructed to take her medications as per prescription. She was instructed to call 911 or go to the nearest emergency room if she has any significant shortness of breath or chest pain. The patient verbalized understanding of her discharge instructions. CONDITION AT DISCHARGE: Stable. DISCHARGE PHYSICAL EXAMINATION: GENERAL: This is an obese Maltese female sitting in bed in no apparent distress. HEENT: Normocephalic and atraumatic. Eyes: Anicteric sclerae. Conjunctivae clear. ENT: Nasal septum is midline. Oral mucosa is dry. NECK: Supple. No JVD noticed. RESPIRATORY: Bilaterally diminished breath sounds. Bilateral fine rales heard. No use of accessory muscles of respiration. CARDIAC: Irregular rate and rhythm. Grade II to III/ systolic ejection murmur. GASTROINTESTINAL: Abdomen obese. Soft. Nondistended. Bowel sounds positive in all 4 quadrants. GENITOURINARY: Deferred. EXTREMITIES: No cyanosis, no clubbing. Bilateral lower extremity 2+ pitting edema. Peripheral pulses palpable. NEUROLOGIC: The patient is awake, alert and oriented. Cranial nerves are grossly intact. DISCHARGE MEDICATIONS: 1. Lasix 40 mg p.o. b.i.d. 2. Amiodarone 200 mg p.o. b.i.d. 3. Apixaban 2.5 mg p.o. b.i.d. 4. Digoxin 0.125 mg p.o. daily. 5. Synthroid 88 mcg p.o. before breakfast. 6. Losartan 50 mg p.o. daily. 7. Metformin 500 mg p.o. with breakfast and dinner. 8. Lopressor 50 mg p.o. b.i.d. 9. Potassium chloride 8 mg p.o. b.i.d. 10. Crestor 10 mg p.o. at bedtime. PERTINENT LABORATORY AND DIAGNOSTIC DATA: 1. 2-D echocardiogram. Mild left ventricular systolic dysfunction. Ejection fraction is visually estimated at 40%. Abnormal diastolic function. Pacemaker in the right heart. Mild right ventricular systolic dysfunction. Mild enlargement of the right ventricle. Mild right ventricular hypokinesis. There is moderate enlargement of the right atrium. Mild mitral valve regurgitation. Mild aortic stenosis. Mild aortic valve regurgitation. Estimated peak PA systolic pressure of 50 mmHg. There is mild tricuspid regurgitation. 2. Chest x-ray upon admission. Moderate cardiac enlargement. Pulmonary venous hypertension. 3. Bilateral lower extremity venous Doppler study. No evidence of DVT. 4. Latest CBC: WBC 4.6, hemoglobin 10.6, hematocrit 32.4, platelet count 96. 5. Latest BMP: Sodium 144, potassium 3.9, chloride 101, carbon dioxide 30, anion gap 15, BUN 24, creatinine 1.7, glucose 152, calcium 9.1, phosphorus 3.8, magnesium 1.7. 6. Fasting lipid panel: Triglycerides 122, total cholesterol 143, LDL 91, AST 20. 7. Iron panel: Iron 54, TIBC 325, iron saturation 17, ferritin 39.5. 8. Stool for OB x1 negative. 9. Hemoglobin A1c 6.5. At this time I would like to thank Dr. East for seeing the patient and providing clinical recommendations. The case and management of this patient was fully discussed with Dr. Bennett. Approximately 35 minutes was spent on coordinating the discharge on this patient. MARTY BENNETT MD, AM/JARRELL Conf#: [id number] DID#: [id number] MTDD
== END 2016-06-17 15:07 | disposition home or self-care (01) ==
LOC: E/R 13:10 → TEL 16:48 → UNDOADMOB 19:04 → TEL 19:04
PROVIDERS: ADMIT Student in an Organized Health Care Education/Training Program; ATTEND Student in an Organized Health Care Education/Training Program
DX: I11.0 Hypertensive heart disease with heart failure (principal); I50.23 Acute on chronic systolic (congestive) heart failure; J96.01 Acute respiratory failure with hypoxia; E11.9 Type 2 diabetes mellitus without complications; I42.9 Cardiomyopathy, unspecified; I48.0 Paroxysmal atrial fibrillation; D50.9 Iron deficiency anemia, unspecified; D69.6 Thrombocytopenia, unspecified; I35.0 Nonrheumatic aortic (valve) stenosis; E03.9 Hypothyroidism, unspecified; I27.2 Other secondary pulmonary hypertension; Z95.0 Presence of cardiac pacemaker; Z79.4 Long term (current) use of insulin
CPT/HCPCS: 36415; 71010; 80048; 80053; 80061; 80162; 81003; 82270; 82550; 82553; 82652; 82728; 82962; 83036; 83540; 83735; 83880; 84100; 84439; 84443; 84484; 85025; 85610; 85730; 93005; 93306; 93970; 96372; 96374; 96375; 99285; G0378; J1815; J1940

== ENCOUNTER 2016-07-30 14:44 | Inpatient (IN) | payer MEDICARE, OTHER ==
[~2016-07-30] VITALS: Ht 154.9 cm; Wt 91.1 kg
[~2016-07-30 14:44] MED LIST changes: +APIX2.5T PO; -CLON0.2T5 PO; +CRES10 PO; -ERGO500014 PO; -HYDR-3671 PO; +LEVO88TA3 PO; -LISI-313 PO; +LOSA50TA6 PO; -METO-448 PO; -PANT40TA4 PO; -ROSU20TA PO; -UDROBDM PO; -URE25 PO; -WARF2TAB PO
--- NOTE | 2016-07-30 17:09 | ERA ---
ER Documentation Chief Complaint Date/Time DATE: 07/30/16 TIME: 17:07 Chief Complaint CHILLS, VOMITING X 4 DAYS. HPI 76-year-old female who presents to the emergency room with multiple complaints for approximately greater than 1 month. Patient has a history of pulmonary hypertension, CHF. It appears over the past 1 month she has had generalized weakness and malaise. She denies any chest pain, no shortness of breath, no dyspnea on exertion. Over the last 1 week she is describing chills but no fevers. She was treated 1-1/2 weeks ago for urinary tract infection. She denies any flank pain, no dysuria urgency or frequency. At triage it was noted that she had vomiting but the patient denies vomiting. ROS All systems reviewed and are negative except as per history of present illness. Medications Home Meds Active Scripts Furosemide* (Furosemide*) 40 Mg Tablet, 40 MG PO BID for 30 Days, TAB Prov:MARTY HOLLAND GEOGRAPHIC ANALYST 06/17/16 Reported Medications Ferrous Sulfate* (Ferrous Sulfate*) 325 Mg Tabec, 325 MG PO BID, TAB 07/30/16 Rosuvastatin Calcium* (Crestor*) 10 Mg Tablet, 10 MG PO QHS, #30 TAB 06/15/16 Potassium Chloride* (Potassium Chloride*) 8 Meq Capsule.er, 8 MEQ PO BID, CAP 06/15/16 Metoprolol Tartrate* (Lopressor*) 50 Mg Tab, 50 MG PO BID, #60 TAB 06/15/16 Metformin* (Glucophage*) 500 Mg Tab, 500 MG PO WITH BREAKFAST DINNE, #30 TAB 06/15/16 Losartan Potassium* (Losartan Potassium*) 50 Mg Tablet, 50 MG PO DAILY, TAB 06/15/16 Levothyroxine Sodium* (Levothyroxine Sodium*) 88 Mcg Tablet, 88 MCG PO BEFORE BREAKFAST, #30 TAB 06/15/16 Amiodarone Hcl* (Amiodarone Hcl*) 200 Mg Tablet, 200 MG PO DAILY, #30 TAB 06/15/16 Digoxin* (Lanoxin*) 0.125 Mg Tablet, 0.125 MG PO DAILY, TAB 06/15/16 Apixaban* (Eliquis*) 2.5 Mg Tablet, 2.5 MG PO BID, TAB 06/15/16 Allergies Allergies: Coded Allergies: lisinopril (Verified Adverse Reaction, Intermediate, coughing, 06/15/16) PMhx/Soc History of Surgery: Yes (back surgery, pacemeaker) Anesthesia Reaction: No Hx Neurological Disorder: No Hx Respiratory Disorders: No Hx Cardiac Disorders: Yes (HTN, cardiomyopathy, sick sinus syndrome, pacemaker) Hx Psychiatric Problems: No Hx Miscellaneous Medical Probl: Yes (Dyslipidemia) Hx Alcohol Use: No Hx Substance Use: No Hx Tobacco Use: No FmHx Family History: No diabetes Physical Exam Vitals Vital Signs Date Time Temp Pulse Resp B/P Pulse Ox O2 Delivery O2 Flow Rate FiO2 07/30/16 14:55 99.0 80 19 118/59 100 Physical Exam General: Well developed, well nourished, no acute distress Head: Normocephalic, atraumatic. Eyes: Pupils equally reactive, EOM intact ENT: Moist mucous membranes Neck: Supple, no lymphadenopathy Respiratory: Lungs clear bilaterally, no distress Cardiovascular: RRR, no murmurs, rubs, or gallops Abdominal: Soft, non-tender, non-distended, no peritoneal signs : Deferred MSK: No edema, no unilateral swelling, 5/5 strength Neurologic: Alert and oriented, moving all extremities, normal speech, no focal weakness, no cerebellar signs Skin: No rash Psych: Normal mood Result Diagram: 07/30/16 1705 07/30/16 1705 Results 24 hrs Laboratory Tests Test 07/30/16 16:10 07/30/16 17:05 Urine Color YELLOW Urine Clarity CLEAR Urine pH 6.0 Urine Specific [place] 1.015 Urine Ketones NEGATIVE Urine Nitrite NEGATIVE Urine Bilirubin NEGATIVE Urine Urobilinogen 0.2 E.U./dL Urine Leukocyte Esterase NEGATIVE Urine Microscopic RBC NONE SEEN/HPF Urine Microscopic WBC 0-2/HPF Urine Squamous Epithelial Cells MODERATE Urine Hemoglobin NEGATIVE Urine Glucose NEGATIVE% Urine Total Protein 1+ White Blood Count 11.110^3/ul Red Blood Count 4.0910^6/ul Hemoglobin 10.8g/dl Hematocrit 34.2% Mean Corpuscular Volume 83.6fl Mean Corpuscular Hemoglobin 26.4pg Mean Corpuscular Hemoglobin Concent 31.6g/dl Red Cell Distribution Width 22.5% Platelet Count 60277^3/UL Mean Platelet Volume fl Neutrophils % 86.2% Lymphocytes % 6.0% Monocytes % 7.1% Eosinophils % 0.1% Basophils % 0.2% Nucleated Red Blood Cells % 0.0/100WBC Neutrophils # 9.610^3/ul Lymphocytes # 0.710^3/ul Monocytes # 0.810^3/ul Eosinophils # 0.010^3/ul Basophils # 0.010^3/ul Nucleated Red Blood Cells # 0.010^3/ul Prothrombin Time 16.9Sec Prothrombin Time Ratio 1.3 INR International Normalized Ratio 1.37 Activated Partial Thromboplast Time 35.1Sec Sodium Level 137mmol/L Potassium Level 3.8mmol/L Chloride Level 98mmol/L Carbon Dioxide Level 29mmol/L Anion Gap 14 Blood Urea Nitrogen 19mg/dl Creatinine 1.07mg/dl Glucose Level 133mg/dl Calcium Level 8.3mg/dl Total Bilirubin 1.1mg/dl Direct Bilirubin 0.00mg/dl Indirect Bilirubin 1.1mg/dl Aspartate Amino Transf (AST/SGOT) 51IU/L Alanine Aminotransferase (ALT/SGPT) 27IU/L Alkaline Phosphatase 103IU/L Troponin I 0.184ng/ml B-Type Natriuretic Peptide 56051CQ/ML Total Protein 7.6g/dl Albumin 3.3g/dl Globulin 4.30g/dl Albumin/Globulin Ratio 0.76 Lipase 252U/L Free Thyroxine Index 4.69ug/ml Thyroxine (T4) 10.5ug/dl Triiodothyronine (T3) Uptake 44.7% Current Medications Medications (Trade) Dose Ordered Sig/Alistair Route PRN Reason Start Time Stop Time Status Last Admin Dose Admin Furosemide (Lasix) 40 mg ONCE ONCE IV 07/30/16 18:00 07/30/16 18:01 DC Aspirin (Aspirin) 324 mg ONCE ONCE PO 07/30/16 18:00 07/30/16 18:01 DC Ondansetron HCl (Zofran Inj) 4 mg ER BRIDGE PRN IV NAUSEA AND/OR VOMITING 07/30/16 18:30 07/31/16 18:29 Acetaminophen (Tylenol Tab) 650 mg ER BRIDGE PRN PO MILD PAIN/FEVER 07/30/16 18:30 07/31/16 18:29 Procedures/MDM EKG, MONITORS, & DIAGNOSTIC IMAGING: EKG: I reviewed and interpreted a 12-lead EKG. Rhythm: There is electronic pacemaker Ectopy: None Intervals: No abnormalities ST segments: No elevations or depressions T waves: No contiguous inversions Chest x-ray: I reviewed and interpreted a 1 view of the chest Mediastinum: No enlargement Cardiac silhouette: cardiomegaly Airspace: Interstitial process consistent with pulmonary edema Bones: No evidence of fracture LAB INTERPRETATION: Troponin elevation and BNP elevation MEDICAL DECISION MAKING: The patient presents with generalized weakness and chills. Consider possible infectious process though the patient has 1 month of symptoms which seems unlikely. No fever here, normal blood pressure here. No signs of overt heart failure though the patient does have a history of heart failure. She also takes Eliquis. No headache, no signs of melena or hemorrhage though consider possible subacute bleed or anemia. The patient's symptoms are very nonspecific and I believe would benefit from broad workup including laboratory testing, chest x-ray, EKG and reevaluation. Thyroid testing also. ER COURSE: The patient has a troponin and BNP elevation. Her chest x-ray is consistent with pulmonary edema. Her presentation is very consistent with exacerbation of congestive heart failure. The patient was given aspirin and Lasix. She will be admitted to telemetry. She remains chest pain-free. I kept the patient and/or family informed of laboratory and diagnostic imaging results throughout the emergency room course. DISPOSITION PLAN: Telemetry admission for management of non-ST elevation myocardial infarction CONSULTATION: Accepting care team and consultations: I discussed the current laboratory data, diagnostic imaging and emergency care provided. Admitting team: Dr. Shrestha Admitting team indication: Insurance directed Departure Diagnosis: Primary Impression: Acute exacerbation of CHF (congestive heart failure) Qualified Code: I50.23 - Acute on chronic systolic congestive heart failure Additional Impressions: Non-ST elevation myocardial infarction (NSTEMI) Generalized weakness Condition: Stable JOVANI CROOKS MD Jul 30, 2016 17:09
[2016-07-30 17:11] LABS: ADD SCAN DIFF NO
[2016-07-30 17:16] LABS: ABNORMAL IP MESSAGE 1; BASOPHILS % 0.2 % (0.0-2.0); EOSINOPHILS % 0.1 % (0.0-7.0); HEMATOCRIT 34.2 % (37.0-47.0); HEMOGLOBIN 10.8 g/dl (12.0-16.0); LYMPHOCYTES # 0.7 10^3/ul (0.8-2.9); MEAN CORPUSCULAR HEMOGLOBIN 26.4 pg (29.0-33.0); MEAN CORPUSCULAR HGB CONC 31.6 g/dl (32.0-37.0); MEAN CORPUSCULAR VOLUME 83.6 fl (82.0-101.0); MONOCYTE # 0.8 10^3/ul (0.3-0.9); MONOCYTES % 7.1 % (0.0-11.0); NEUTROPHIL # 9.6 10^3/ul (1.6-7.5); NEUTROPHILS % 86.2 % (39.0-77.0); PLATELET COUNT 102 10^3/UL (140-415); RED BLOOD COUNT 4.09 10^6/ul (4.20-5.40); RED CELL DISTRIBUTION WIDTH 22.5 % (11.5-14.5); WHITE BLOOD COUNT 11.1 10^3/ul (4.8-10.8)
[2016-07-30 17:24] LABS: ALBUMIN 3.3 g/dl (3.3-4.9)
[2016-07-30 17:25] LABS: POTASSIUM 3.8 mmol/L (3.5-5.1)
[2016-07-30 17:26] LABS: ADD UMIC YES; URINE BILIRUBIN (Dip) NEGATIVE (NEGATIVE); URINE BLOOD (Dip) NEGATIVE (NEGATIVE); URINE COLOR YELLOW (YELLOW); URINE GLUCOSE (Dip) NEGATIVE (NEGATIVE); URINE KETONES (Dip) NEGATIVE (NEGATIVE); URINE LEUKOCYTE ESTERASE (Dip) NEGATIVE (NEGATIVE); URINE NITRITE (Dip) NEGATIVE (NEGATIVE); URINE TOTAL PROTEIN (Dip) 1+ (NEGATIVE); URINE UROBILINOGEN (Dip) 0.2 E.U./dL (0.1-1.0)
[2016-07-30 17:26] LABS: INR 1.37; PROTIME 16.9 Sec (12.2-14.2); PT RATIO 1.3
[2016-07-30 17:27] LABS: ALBUMIN/GLOBULIN RATIO 0.76; BILIRUBIN,INDIRECT 1.1 mg/dl (0-1.1); BILIRUBIN,TOTAL 1.1 mg/dl (0.2-1.3); CREATININE 1.07 mg/dl (0.44-1.00); TOTAL PROTEIN 7.6 g/dl (6.1-8.1)
[2016-07-30 17:28] LABS: CALCIUM 8.3 mg/dl (8.4-10.2)
[2016-07-30 17:31] LABS: PARTIAL THROMBOPLASTIN TIME 35.1 Sec (25.0-35.0)
[2016-07-30 17:44] LABS: T3 UPTAKE 44.7 % (23.5-40.5)
[2016-07-30 17:46] LABS: SQUAMOUS EPITHELIAL CELL,UR MODERATE; URINE RBCS NONE SEEN /HPF (0)
--- NOTE | 2016-07-30 17:49 | RADRPT ---
PROCEDURE: XR Chest. CLINICAL INDICATION: Abdominal pain for. TECHNIQUE: Portable AP upright view of the chest was obtained. COMPARISON: 06/15/2016 FINDINGS: The cardiomediastinal silhouette is enlarged, a single chamber left subclavian approach cardiac pace maker is again noted. Diffuse pulmonary vascular congestion is slightly greater than on the prior e xamination with left greater than right basilar subsegmental atelectasis. Small bilateral pleural e ffusions are difficult to exclude. Demineralization is again noted with thoracic scoliosis but no e vidence of acute osseous abnormality. Calcification is again visible within the aorta. RPTAT:HJJR IMPRESSION: Cardiomegaly and pulmonary vascular congestion consistent with chronic congestive heart failure chanel te, the appearance of the chest slightly worse allowing for technical differences as compared to . Physician Soo Date Time Electronically viewed and signed by Physician Soo on 07/30/2016 17:49 JR/
[2016-07-30 17:55] LABS: TROPONIN-I 0.184 ng/ml (0.00-0.12)
[2016-07-30] MEDS ORDERED: ASPIRIN 81 MG TAB PO ONE (18:00)
[2016-07-30] MEDS ORDERED: FUROSEMIDE 40 MG INJ IV ONE (18:00)
[2016-07-30] MEDS ORDERED: FER325 PO (18:05)
[2016-07-30] MEDS ORDERED: ONDANSETRON 4 MG INJ IV PRN (18:30)
[2016-07-30] MEDS ORDERED: ACETAMINOPHEN 325 MG TAB PO PRN (18:30)
--- NOTE | 2016-07-30 19:14 | HP ---
Date/Time of Note Date/Time of Note DATE: 07/30/16 TIME: 19:13 Assessment/Plan VTE Prophylaxis VTE Prophylaxis Intervention: other (Eliquis) Assessment/Plan Assessment/Plan 1) Acute exacerbation of CHF, Acute on Chronic with both Systolic and Diastolic dysfunction based on Echo done 06/15/16. - Admit to Telemetry - Diuresis - Monitor - BMP in AM - CONSULT: Cardiology - Dr. Leon 2) Non-ST elevation myocardial infarction (NSTEMI) - Continue to follow serial enzymes plus repeat EKG in AM - AM Labs: Dig Level, CHD Panel - Echocardiogram - Evaluate for additional heart muscle damage 3) Generalized weakness - CBC in AM - Blood Cultures x 2 if she spikes a temperature over night 4) Hypothyroidism - Add TSH onto Thyroid Profile done in the ED - Adjust Thyroid Dose if indicated, but be sure to consider patient's protein status contributing to the amount of Free T4 available 5) Pacemaker Status HPI/ROS Admit Date/Time Admit Date/Time 07/30/16 1803 Hx of Present Illness Chief Complaint CHILLS, VOMITING X 4 DAYS. HPI 76-year-old female, accompanied by her daughter who relays the history, who presents with multiple complaints. She was hospitalized about a month ago, and since then has had off and on fatigue. She has a history of pulmonary hypertension and CHF and has a Ventricular Pacemaker in place. The past 2 days, she has had a couple of temperature, 99.1 and 101. She has the chills, but no fever, cough, sore throat or painful urination. No back pain or hematuria. No blood in the stool or black colored stool. No headache or vision change. No rash or itch. Legs are always swollen, and they are as usual today. No spontaneous vomiting, but she made herself throw up yesterday in order to relieve what she perceived to be stomach gas. She denies any chest pain, shortness of breath or dyspnea on exertion. Over the last 1 week she is describing chills but no fevers. She was treated 1-1/2 weeks ago for urinary tract infection. ER COURSE per ER Physician: The patient has a troponin and BNP elevation. Her chest x-ray is consistent with pulmonary edema. Her presentation is very consistent with exacerbation of congestive heart failure. The patient was given aspirin and Lasix. She will be admitted to telemetry. She remains chest pain-free. MEDICAL DECISION MAKING per ER Physician: The patient presents with generalized weakness and chills. Consider possible infectious process though the patient has 1 month of symptoms which seems unlikely. No fever here, normal blood pressure here. No signs of overt heart failure though the patient does have a history of heart failure. She also takes Eliquis. No headache, no signs of melena or hemorrhage though consider possible subacute bleed or anemia. The patient's symptoms are very nonspecific and I believe would benefit from broad workup including laboratory testing, chest x-ray, EKG and reevaluation. Thyroid testing also. ROS See ROS for HPI provided by patient's daughter who did ask her mom for some specific answers. PMH/Family/Social Past Medical History HTN, cardiomyopathy, sick sinus syndrome, pacemaker, dyslipidemia Past Surgical History back surgery, pacemeaker Family History Significant Family History: other (No Diabetes) Social History Smoking Status: Never smoker Exam/Review of Systems Vital Signs Vitals Vital Signs Date Time Temp Pulse Resp B/P Pulse Ox O2 Delivery O2 Flow Rate FiO2 07/30/16 18:30 98.8 70 18 125/60 100 Room Air Exam Exam General: Elderly Brazilian-speaking female, alert, sitting by the side of the bed with the blanket wrapped around her because she is chilled. Her head is hung forward for most of the visit, and she occasionally looks up, rocks back and forth sighs/moans and then hangs her head forward again. Appears tired, but non-toxic Eyes: Sclera White, EOMI HENT: Normocephalic/Atraumatic, External Ears/Nose Normal, Moist Mucus Membranes Neck: Supple, Trachea Midline Cardiovascular: Normal Rate, Normal Rhythm, Harsh Systolic murmur heard across entire precordium. Radial pulse + 2/4. Pitting Edema, 1+ to mid leg bilaterally. Pulmonary: Clear to Auscultation Bilaterally, but decreased airflow throughout , Normal Respiratory Effort, No Rales, Rhonchi or Wheezes Gastrointestinal: Normoactive Bowel Sounds, Soft, Non-Tender/Non-Distended. Exam done with patient in the seated position Urogenital: Deferred Musculoskeletal: Normal Muscle Bulk and Tone Neurological: CN II - XII Grossly Intact, Non-Focal Integumentary: Normal Moisture and Temperature, Good Turgor, No Jaundice, No Rash Lymphatic: No Cervical Lymphadenopathy Psychiatric: Depressed Mood and Affect, Fair Eye Contact Labs Result Diagram: 07/30/16 1705 07/30/16 1705 Medications Medications Home Meds Active Scripts Furosemide* (Furosemide*) 40 Mg Tablet, 40 MG PO BID for 30 Days, TAB Prov:BENITEZRILEYMARTY FOOD SERVICE ASSISTANT 06/17/16 Reported Medications Ferrous Sulfate* (Ferrous Sulfate*) 325 Mg Tabec, 325 MG PO BID, TAB 07/30/16 Rosuvastatin Calcium* (Crestor*) 10 Mg Tablet, 10 MG PO QHS, #30 TAB 06/15/16 Potassium Chloride* (Potassium Chloride*) 8 Meq Capsule.er, 8 MEQ PO BID, CAP 06/15/16 Metoprolol Tartrate* (Lopressor*) 50 Mg Tab, 50 MG PO BID, #60 TAB 06/15/16 Metformin* (Glucophage*) 500 Mg Tab, 500 MG PO WITH BREAKFAST DINNE, #30 TAB 06/15/16 Losartan Potassium* (Losartan Potassium*) 50 Mg Tablet, 50 MG PO DAILY, TAB 06/15/16 Levothyroxine Sodium* (Levothyroxine Sodium*) 88 Mcg Tablet, 88 MCG PO BEFORE BREAKFAST, #30 TAB 06/15/16 Amiodarone Hcl* (Amiodarone Hcl*) 200 Mg Tablet, 200 MG PO DAILY, #30 TAB 06/15/16 Digoxin* (Lanoxin*) 0.125 Mg Tablet, 0.125 MG PO DAILY, TAB 06/15/16 Apixaban* (Eliquis*) 2.5 Mg Tablet, 2.5 MG PO BID, TAB 06/15/16 Current Medications Medications (Trade) Dose Ordered Sig/Alistair Route PRN Reason Start Time Stop Time Status Last Admin Dose Admin Furosemide (Lasix) 40 mg ONCE ONCE IV 07/30/16 18:00 07/30/16 18:01 DC Aspirin (Aspirin) 324 mg ONCE ONCE PO 07/30/16 18:00 07/30/16 18:01 DC Ondansetron HCl (Zofran Inj) 4 mg ER BRIDGE PRN IV NAUSEA AND/OR VOMITING 07/30/16 18:30 07/31/16 18:29 Acetaminophen (Tylenol Tab) 650 mg ER BRIDGE PRN PO MILD PAIN/FEVER 07/30/16 18:30 07/31/16 18:29 Procedures Procedures Laboratory Tests Test 07/30/16 16:10 07/30/16 17:05 Urine Color YELLOW Urine Clarity CLEAR Urine pH 6.0 Urine Specific [place] 1.015 Urine Ketones NEGATIVE Urine Nitrite NEGATIVE Urine Bilirubin NEGATIVE Urine Urobilinogen 0.2 E.U./dL Urine Leukocyte Esterase NEGATIVE Urine Microscopic RBC NONE SEEN/HPF Urine Microscopic WBC 0-2/HPF Urine Squamous Epithelial Cells MODERATE Urine Hemoglobin NEGATIVE Urine Glucose NEGATIVE% Urine Total Protein 1+ White Blood Count 11.110^3/ul Red Blood Count 4.0910^6/ul Hemoglobin 10.8g/dl Hematocrit 34.2% Mean Corpuscular Volume 83.6fl Mean Corpuscular Hemoglobin 26.4pg Mean Corpuscular Hemoglobin Concent 31.6g/dl Red Cell Distribution Width 22.5% Platelet Count 02360^3/UL Mean Platelet Volume fl Neutrophils % 86.2% Lymphocytes % 6.0% Monocytes % 7.1% Eosinophils % 0.1% Basophils % 0.2% Nucleated Red Blood Cells % 0.0/100WBC Neutrophils # 9.610^3/ul Lymphocytes # 0.710^3/ul Monocytes # 0.810^3/ul Eosinophils # 0.010^3/ul Basophils # 0.010^3/ul Nucleated Red Blood Cells # 0.010^3/ul Prothrombin Time 16.9Sec Prothrombin Time Ratio 1.3 INR International Normalized Ratio 1.37 Activated Partial Thromboplast Time 35.1Sec Sodium Level 137mmol/L Potassium Level 3.8mmol/L Chloride Level 98mmol/L Carbon Dioxide Level 29mmol/L Anion Gap 14 Blood Urea Nitrogen 19mg/dl Creatinine 1.07mg/dl Glucose Level 133mg/dl Calcium Level 8.3mg/dl Total Bilirubin 1.1mg/dl Direct Bilirubin 0.00mg/dl Indirect Bilirubin 1.1mg/dl Aspartate Amino Transf (AST/SGOT) 51IU/L Alanine Aminotransferase (ALT/SGPT) 27IU/L Alkaline Phosphatase 103IU/L Troponin I 0.184ng/ml B-Type Natriuretic Peptide 11009BR/ML Total Protein 7.6g/dl Albumin 3.3g/dl Globulin 4.30g/dl Albumin/Globulin Ratio 0.76 Lipase 252U/L Free Thyroxine Index 4.69ug/ml Thyroxine (T4) 10.5ug/dl Triiodothyronine (T3) Uptake 44.7% EKG: EKG: Interpreted by ER Physician, 12-lead EKG. Rhythm: There is electronic pacemaker Ectopy: None Intervals: No abnormalities ST segments: No elevations or depressions T waves: No contiguous inversions RADIOLOGY: PROCEDURE: XR Chest. CLINICAL INDICATION: Abdominal pain for. TECHNIQUE: Portable AP upright view of the chest was obtained. COMPARISON: 06/15/2016 IMPRESSION: Cardiomegaly and pulmonary vascular congestion consistent with chronic congestive heart failure pattern, the appearance of the chest slightly worse allowing for technical differences as compared to 06/15/2016. MICHELET MCMULLEN DO Jul 30, 2016 19:14 EKG: EKG: Interpreted by ER Physician, 12-lead EKG. Rhythm: There is electronic pacemaker Ectopy: None Intervals: No abnormalities ST segments: No elevations or depressions T waves: No contiguous inversions RADIOLOGY: PROCEDURE: XR Chest. CLINICAL INDICATION: Abdominal pain for. TECHNIQUE: Portable AP upright view of the chest was obtained. COMPARISON: 06/15/2016 IMPRESSION: Cardiomegaly and pulmonary vascular congestion consistent with chronic congestive heart failure pattern, the appearance of the chest slightly worse allowing for technical differences as compared to 06/15/2016. MICHELET MCMULLEN DO Jul 30, 2016 19:14 CLINICAL INDICATION: Abdominal pain for. TECHNIQUE: Portable AP upright view of the chest was obtained. COMPARISON: 06/15/2016 IMPRESSION: Cardiomegaly and pulmonary vascular congestion consistent with chronic congestive heart failure pattern, the appearance of the chest slightly worse allowing for technical differences as compared to 06/15/2016. MICHELET MCMULLEN DO Jul 30, 2016 19:14 PROCEDURE: XR Chest. CLINICAL INDICATION: Abdominal pain for. TECHNIQUE: Portable AP upright view of the chest was obtained. COMPARISON: 06/15/2016
[2016-07-30 19:41] VITALS: TEMP 98.8
[2016-07-30] MEDS ORDERED: NITROGLYCERIN (SL) 0.4 MG TAB SL PRN (20:30)
[2016-07-30] MEDS ORDERED: HYDROCODONE/APAP (5/325) TAB PO PRN (20:30)
[2016-07-30] MEDS ORDERED: NACL 0.9% 3 ML SYG IV SCH (20:30)
[2016-07-30] MEDS ORDERED: morphine 2 MG INJ IV PRN (20:30)
[2016-07-30 20:58] VITALS: Ht 154.9 cm; Wt 91.1 kg
[2016-07-30] MEDS: POTASSIUM CHLORIDE (SR) 8 MEQ CAP PO SCH (21:00)
[2016-07-30] MEDS ORDERED: NON-FORMULARY/PATIENT OWN MED (Rosuvastatin Calcium* (Crestor*) 10 MG) PO SCH (21:00)
[2016-07-30 21:10] VITALS: PULSE 80
[2016-07-30] MEDS: METOPROLOL 50 MG TAB PO SCH (21:48)
[2016-07-30] MEDS: ACETAMINOPHEN 325 MG TAB PO PRN (21:48)
[2016-07-30] MEDS: FERROUS SULFATE (EC) 325 MG TAB PO SCH (21:48)
[2016-07-30 22:15] LABS: CK-MB 0.28 ng/ml (0.0-2.4)
[2016-07-30 22:26] LABS: TROPONIN-I 0.243 ng/ml (0.00-0.12)
[2016-07-30] MEDS: LORAZEPAM 0.5 MG TAB PO PRN (23:44)
[2016-07-31] VITALS (12 sets, daily range): BP systolic 93–124; BP diastolic 48–56; PULSE 70–80; RESP 16–20
[2016-07-31 03:07] LABS: ADD SCAN DIFF NO
[2016-07-31 03:23] LABS: POTASSIUM 3.4 mmol/L (3.5-5.1)
[2016-07-31 03:26] LABS: CREATININE 1.14 mg/dl (0.44-1.00)
[2016-07-31 03:27] LABS: CALCIUM 8.4 mg/dl (8.4-10.2); CHOL/HDL RATIO 5.6 RATIO; MAGNESIUM 1.8 mg/dl (1.7-2.5)
[2016-07-31 03:36] LABS: CK-MB 0.27 ng/ml (0.0-2.4)
[2016-07-31 03:53] LABS: TROPONIN-I 0.225 ng/ml (0.00-0.12)
[2016-07-31] MEDS ORDERED: FUROSEMIDE 40 MG INJ IV ONE (06:00)
[2016-07-31 06:21] LABS: ABNORMAL IP MESSAGE 1; BASOPHILS % 0.3 % (0.0-2.0); EOSINOPHILS % 0.4 % (0.0-7.0); HEMOGLOBIN 9.9 g/dl (12.0-16.0); LYMPHOCYTES # 0.6 10^3/ul (0.8-2.9); LYMPHOCYTES % 8.4 % (15.0-51.0); MEAN CORPUSCULAR HEMOGLOBIN 26.4 pg (29.0-33.0); MEAN CORPUSCULAR HGB CONC 31.9 g/dl (32.0-37.0); MEAN CORPUSCULAR VOLUME 82.7 fl (82.0-101.0); MONOCYTE # 0.6 10^3/ul (0.3-0.9); NEUTROPHIL # 5.7 10^3/ul (1.6-7.5); NEUTROPHILS % 82.3 % (39.0-77.0); PLATELET COUNT 77 10^3/UL (140-415); RED BLOOD COUNT 3.75 10^6/ul (4.20-5.40); RED CELL DISTRIBUTION WIDTH 22.5 % (11.5-14.5); WHITE BLOOD COUNT 6.9 10^3/ul (4.8-10.8)
[2016-07-31] MEDS ORDERED: LEVOTHYROXINE 88 MCG TAB PO SCH (07:00)
[2016-07-31] MEDS: metFORMIN 500 MG TAB PO SCH ×2 (08:40→17:25)
[2016-07-31] MEDS: FERROUS SULFATE (EC) 325 MG TAB PO SCH ×2 (08:40→21:29)
[2016-07-31] MEDS: AMIODARONE 200 MG TAB PO SCH (08:41)
[2016-07-31] MEDS: POTASSIUM CHLORIDE (SR) 8 MEQ CAP PO SCH ×2 (08:42→21:30)
[2016-07-31] MEDS: METOPROLOL 50 MG TAB PO SCH (08:42)
[2016-07-31] MEDS ORDERED: LOSARTAN 50 MG TAB PO SCH (09:00)
[2016-07-31] MEDS: DIGOXIN 0.125 MG TAB PO SCH (12:50)
--- NOTE | 2016-07-31 13:12 | RADRPT ---
Vent Rate: 80 bpm RR Interval: 0 msec HI Interval: 0 msec QRS Duration: 198 msec QT Interval: 476 msec QTC Interval: 548 msec P-R-T [place]: 0 - -69 - 110 degrees Electronic ventricular pacemaker Electronically Signed By: George Gonzalez [id number]
--- NOTE | 2016-07-31 13:46 | RADRPT ---
Echocardiogram Report Patient Name: TAMARA BERNSTEIN Gender: Female Date: 1940 Study Date: 31-Jul-2016 Anthropology Professor: Norman Roman RDCS Location: I Ref. Physician: MICHELET MCMULLEN Quality: Good Procedures: Transthoracic echocardiogram with complete 2D, M-Mode, and doppler examination. Indications: Congestive Heart Failure. NSTEMI. 2D/M Mode Doppler Measurement Value Normal Ranges Measurement Value Normal Ranges LVIDd 2D 4.6 3.5 - 5.6 cm STEFAN Vmax 0.8 cm2 LVIDs 2D 3.1 2.1 - 4.1 cm STEFAN VTI 0.8 cm2 LVPWd 2D 1.1 0.6 - 1.1 cm AV Mean Ashutosh 2.3 m/sec IVSd 2D 0.8 0.6 - 1.1 cm AV Mean PG 24.1 mmHg AoR Diam 2D 2.4 2.0 - 3.7 cm AV Peak Ashutosh 3.5 m/sec EDV 2D 99.3 cm3 AV Peak PG 48.6 mmHg ESV 2D 29.0 cm3 AV VTI 70.5 cm LA Dimen 2D 4.2 2.3 - 4.0 cm AI Peak PG 72.0 mmHg LVOT Diam 2.0 cm AI Peak Ashutosh 4.2 m/sec AI PHT 428.6 msec LVOT Mean Ashutosh 0.5 m/sec LVOT Mean PG 1.5 mmHg LVOT Peak Ashutosh 0.9 m/sec LVOT Peak PG 3.3 mmHg LVOT VTI 16.7 cm TR Peak Ashutosh 3.1 m/sec TR Peak PG 39.3 mmHg RVSP 47.0 mmHg Findings Left Ventricle: Normal left ventricular cavity size. Mild concentric left ventricular hypertrophy. Severe left ventricular systolic dysfunction. Ejection fraction is visually estimated at 25 %. Tissue Doppler/Mitral Doppler indices are consistent with restrictive physiology with markedly elevated left atrial pressure (Stage IIIIV diastolic dysfunction). These segments of the LV are hypokinetic mid septum segment, apex, Lateral mid segment, Lateral apex and apical septum. Right Ventricle: Pacemaker right heart. Left Atrium: There is mild enlargement of left atrium. Right Atrium: The right atrium is normal in size. Mitral Valve: Mitral valve leaflets appear mildly thickened. Mild mitral annular calcification. Mild mitral valve regurgitation. Aortic Valve: Severe aortic stenosis. Aortic valve Max velocity 3.49 m/sec. Max PG 48.60 mmHg. Mean PG 24.10 mmHg. Aortic valve area 0.70 cm2. Aortic cusps appear moderately calcified. Mild to moderate aortic valve regurgitation. Tricuspid Valve: Estimated peak PA systolic pressure 47 mmHg. There is moderate tricuspid regurgitation. Pulmonic Valve: Normal pulmonic valve appearance. Pericardium: Normal pericardium with no significant pericardial effusion. Aorta: Normal aortic root. IVC: Dilated IVC with respiratory collapse consistent with elevated right atrial pressure. Conclusions 1.Normal left ventricular cavity size. Mild concentric left ventricular hypertrophy. Severe left ventricular systolic dysfunction. Ejection fraction is visually estimated at 25 %. Tissue Doppler/Mitral Doppler indices are consistent with restrictive physiology with markedly elevated left atrial pressure (Stage III-IV diastolic dysfunction). These segments of the LV are hypokinetic mid septum segment, apex, Lateral mid segment, Lateral apex and apical septum. 2.There is mild enlargement of left atrium. 3.Mitral valve leaflets appear mildly thickened. Mild mitral annular calcification. Mild mitral valve regurgitation. 4.Severe aortic stenosis. Aortic valve Max velocity 3.49 m/sec. Max PG 48.60 mmHg. Mean PG 24.10 mmHg. Aortic valve area 0.70 cm2. Aortic cusps appear moderately calcified. Mild to moderate aortic valve regurgitation. 5.Estimated peak PA systolic pressure 47 mmHg. There is moderate tricuspid regurgitation. Electronically Signed By: Josse Leon 31-Jul-2016 13:46:09 -0700 Patient Name: TAMARA BERNSTEIN Study Date: 31-Jul-2016 [id number]
[2016-07-31] MEDS ORDERED: POTASSIUM CHLORIDE (SR) 20 MEQ TAB PO STA (14:49)
--- NOTE | 2016-07-31 14:51 | PN ---
Date/Time of Note Date/Time of Note DATE: 07/31/16 TIME: 14:36 Assessment/Plan VTE Prophylaxis VTE Prophylaxis Intervention: heparin Lines/Catheters IV Catheter Type (from Nrs): Saline Lock Urinary Cath still in place: No Assessment/Plan Assessment/Plan 1) Acute exacerbation of CHF, Acute on Chronic, systolic and diastolic, LVEF 25 % on 07/30/2016, improving 2) Dilated cardiomyopathy, follow up with cardiology 3) Mildly elevated troponin, follow up with cardiology 4) Hypothyroidism, increase synthroid due to high TSH 5) s/p Pacemaker Status Subjective 24 Hr Interval Summary Free Text/Dictation chills but no shortness of breath, no fever. no cough, no dysuria Exam/Review of Systems Vital Signs Vitals Vital Signs Date Time Temp Pulse Resp B/P Pulse Ox O2 Delivery O2 Flow Rate FiO2 07/31/16 12:02 80 07/31/16 11:56 98.0 20 124/50 99 07/31/16 04:25 Room Air 07/30/16 21:58 2.0 Intake and Output 07/30/16 07/30/16 07/31/16 15:00 23:00 07:00 Intake Total 480 ml 240 ml Output Total 50 ml Balance 430 ml 240 ml Exam Constitutional: alert, oriented, well developed Psych: nl mood/affect, no complaints Head: atraumatic, normocephalic Eyes: EOMI, PERRL, nl conjunctiva, nl lids, nl sclera ENMT: nl external ears & nose, nl lips & teeth, nl nasal mucosa & septum Neck: non-tender, supple Respiratory: clear to auscultation, normal air movement, No congested cough, No crackles/rales, No diminished breath sounds, No intercostal retraction, No labored breathing, No other, No respirations, No tactile fremitus, No wheezing Cardiovascular: nl pulses, regular rate and rhythm, No S3, No S4, No bruits, No diastolic murmur, No edema, No gallop, No irregular rhythm, No jugular venous distention (JVD), No murmurs/extra sounds, No other, No rub, No systolic murmur Gastrointestinal: nl liver, spleen, non-tender, soft, No ascites, No bowel sounds, No distended, No firm, No hepatomegaly, No mass , No other, No rebound or guarding, No splenomegaly, No surgical scars, No tender Musculoskeletal: nl extremities to inspection Extremities: normal pulses, No calf tenderness, No clubbing, No cyanosis, No edema, No other, No palpable cord, No pitting pedal edema, No tenderness Neurological: EPIC WILLOW ANALYST II-XII intact, nl mental status, nl speech, nl strength Skin: nl turgor Lymph: nl lymph nodes Results Result Diagram: 07/31/16 0542 07/31/16 0240 Results 24 hrs Laboratory Tests Test 07/30/16 16:10 07/30/16 17:05 07/30/16 21:30 07/31/16 02:40 Urine Color YELLOW Urine Clarity CLEAR Urine pH 6.0 Urine Specific [place] 1.015 Urine Ketones NEGATIVE Urine Nitrite NEGATIVE Urine Bilirubin NEGATIVE Urine Urobilinogen 0.2 E.U./dL Urine Leukocyte Esterase NEGATIVE Urine Microscopic RBC NONE SEEN Urine Microscopic WBC 0-2 Urine Squamous Epithelial Cells MODERATE Urine Hemoglobin NEGATIVE Urine Glucose NEGATIVE Urine Total Protein 1+ H White Blood Count 11.1 #H Red Blood Count 4.09 L Hemoglobin 10.8 L Hematocrit 34.2 L Mean Corpuscular Volume 83.6 Mean Corpuscular Hemoglobin 26.4 L Mean Corpuscular Hemoglobin Concent 31.6 L Red Cell Distribution Width 22.5 H Platelet Count 102 L Mean Platelet Volume Neutrophils % 86.2 H Lymphocytes % 6.0 L Monocytes % 7.1 Eosinophils % 0.1 Basophils % 0.2 Nucleated Red Blood Cells % 0.0 Neutrophils # 9.6 H Lymphocytes # 0.7 L Monocytes # 0.8 Eosinophils # 0.0 Basophils # 0.0 Nucleated Red Blood Cells # 0.0 Prothrombin Time 16.9 H Prothrombin Time Ratio 1.3 INR International Normalized Ratio 1.37 Activated Partial Thromboplast Time 35.1 H Sodium Level 137 138 Potassium Level 3.8 3.4 L Chloride Level 98 103 Carbon Dioxide Level 29 28 Anion Gap 14 10 Blood Urea Nitrogen 19 22 H Creatinine 1.07 H 1.14 H Glucose Level 133 140 Calcium Level 8.3 L 8.4 Total Bilirubin 1.1 Direct Bilirubin 0.00 Indirect Bilirubin 1.1 Aspartate Amino Transf (AST/SGOT) 51 H Alanine Aminotransferase (ALT/SGPT) 27 Alkaline Phosphatase 103 Troponin I 0.184 *H 0.243 *H 0.225 *H B-Type Natriuretic Peptide 19147 H Total Protein 7.6 Albumin 3.3 Globulin 4.30 H Albumin/Globulin Ratio 0.76 Lipase 252 Thyroid Stimulating Hormone (TSH) 7.060 H Free Thyroxine Index 4.69 H Thyroxine (T4) 10.5 Triiodothyronine (T3) Uptake 44.7 H Creatine Kinase 36 33 Creatine Kinase Index 0.8 0.8 Creatinine Kinase MB (Mass) 0.28 0.27 Magnesium Level 1.8 Triglycerides Level 141 Cholesterol Level 112 LDL Cholesterol, Calculated 64 HDL Cholesterol 20 L Cholesterol/HDL Ratio 5.6 Digoxin Level 0.9 L Test 07/31/16 05:42 White Blood Count 6.9 # Red Blood Count 3.75 L Hemoglobin 9.9 L Hematocrit 31.0 L Mean Corpuscular Volume 82.7 Mean Corpuscular Hemoglobin 26.4 L Mean Corpuscular Hemoglobin Concent 31.9 L Red Cell Distribution Width 22.5 H Platelet Count 77 #L Mean Platelet Volume Neutrophils % 82.3 H Lymphocytes % 8.4 L Monocytes % 8.0 Eosinophils % 0.4 Basophils % 0.3 Nucleated Red Blood Cells % 0.0 Neutrophils # 5.7 Lymphocytes # 0.6 L Monocytes # 0.6 Eosinophils # 0.0 Basophils # 0.0 Nucleated Red Blood Cells # 0.0 Medications Medications Current Medications Lorazepam (Ativan) 0.25 mg Q8H PRN PO ANXIETY Last administered on 07/30/16 23 :44; Admin Dose 0.25 MG; Start 07/30/16 at 20:30 Nitroglycerin (Nitroglycerin (Sl Tab) 0.4 Mg) 1 tab Q5M PRN SL CHEST PAIN; Start 07/30/16 at 20:30 Acetaminophen (Tylenol Tab) 650 mg Q6H PRN PO PAIN LEVEL 1-3 OR FEVER Last administered on 07/30/16 21:48; Admin Dose 650 MG; Start 07/30/16 at 20:30 Acetaminophen/ Hydrocodone Bitart ([place] (5/325)) 1 tab Q6H PRN PO PAIN LEVEL 4 -6; Start 07/30/16 at 20:30 Morphine Sulfate (morphine) 2 mg Q4H PRN IV PAIN LEVEL 7-10; Start 07/30/16 at 20:30 Amiodarone HCl (Cordarone) 200 mg DAILY PO Last administered on 07/31/16 08:41 ; Admin Dose 200 MG; Start 07/31/16 at 09:00 Digoxin (Digoxin) 0.125 mg DAILY@13 PO Last administered on 07/31/16 12:50; Admin Dose 0.125 MG; Start 07/31/16 at 13:00 Ferrous Sulfate (Ferrous Sulfate (Ec)) 325 mg BID PO Last administered on 08:40; Admin Dose 325 MG; Start 07/30/16 at 21:00 Losartan Potassium (Cozaar) 50 mg DAILY PO ; Start 07/31/16 at 09:00 Metoprolol Tartrate (Lopressor) 50 mg BID PO Last administered on 07/30/16 21: 48; Admin Dose 50 MG; Start 07/30/16 at 21:00 Potassium Chloride (Micro-K) 8 meq BID PO Last administered on 07/31/16 08:42 ; Admin Dose 8 MEQ; Start 07/30/16 at 21:00 Atorvastatin Calcium (Lipitor) 40 mg DAILY@21 PO ; Start 07/31/16 at 21:00 BRITTANY OLIVEIRA MD Jul 31, 2016 14:47
[2016-07-31] MEDS: HEPARIN 5,000 UNIT/0.5 ML SYG SC SCH ×2 (15:15→21:45)
[2016-07-31] MEDS ORDERED: DEXTROSE 50% 50 ML SYRINGE IV PRN ×2 (19:30)
[2016-07-31] MEDS ORDERED: GLUCAGON 1 MG INJ IM PRN (19:30)
[2016-07-31] MEDS ORDERED: GLUCOSE GEL 15 GRAM TUBE BUCCAL PRN (19:30)
[2016-07-31] MEDS ORDERED: GLUCOSE GEL 15 GRAM TUBE PO PRN ×2 (19:30)
[2016-07-31] MEDS: METOPROLOL (XL) 25 MG TAB PO SCH (21:00)
[2016-07-31] MEDS: INSULIN ASPART [NOVOLOG] 3 ML PEN SC SCH (21:00)
[2016-07-31] MEDS: ATORVASTATIN 40 MG TAB PO SCH (21:30)
[2016-07-31] MEDS: LORAZEPAM 0.5 MG TAB PO PRN (21:40)
--- NOTE | 2016-07-31 23:30 | CONS ---
DATE OF ADMISSION: 07/30/2016 DATE OF CONSULTATION: 07/31/2016 REASON FOR CONSULTATION: Positive troponin, shortness of breath, assess for congestive heart failur e. REQUESTING PHYSICIAN: Dr. Agarwal from the hospitalist service. HISTORY OF PRESENT ILLNESS: Ms. Albrecht is a 76-year-old female with history of hypertension, di abetes mellitus, cardiomyopathy, atrial fibrillation, hypothyroidism, moderate aortic stenosis, s si ck sinus syndrome, status post permanent pacemaker who presented with complaints of chills and vomit ing. Upon arrival, pulse 80, temperature 99, blood pressure 118/59, respiration 19, saturating 100% . The patient's labs revealed white count 11.1, hemoglobin 10.8, platelet count 102. A sodium 137, creatinine 1.0, BUN 19, AST 51, ALT 27. Troponin 0.184. BNP of 12,900. INR 1.37. Digoxin level 0.9. UA negative. The patient underwent a chest x-ray revealing cardiomegaly and pulmonary vascula r congestion. The patient's electrocardiogram was ventricular paced at a rate of 80. The patient w as subsequently admitted to the floor and, since admitted to floor, has had troponins trended going from 0.184 to 0.243 and then back down to 0.225. The patient, at this time, denies chest pain. Con tinues to have chills. PAST MEDICAL HISTORY: As above in HPI. The patient's previous echo 06/16/2016 revealing an EF of 4 0% with hypokinetic apical septum, pacemaker in the right heart, mild aortic stenosis, mild aortic r egurgitation, mild mitral regurgitation. MEDICATIONS CURRENTLY IN HOSPITAL: 1. Synthroid. 2. Atorvastatin 40 mg at bedtime. 3. Heparin 5000 subq b.i.d. 4. Digoxin 0.125 mg daily. 5. Amiodarone 10 mg daily. 6. Cozaar 50 mg daily. 7. Metformin 500 mg b.i.d. 8. Metoprolol 50 mg b.i.d. 9. Ferrous sulfate. ALLERGIES: LISINOPRIL. SOCIAL HISTORY: No tobacco, ETOH, or illicit drug use. FAMILY HISTORY: No history of sudden cardiac or early CAD. REVIEW OF SYSTEMS: As above in HPI. CONSTITUTIONAL: No fevers. Positive chills. PULMONARY: Mild shortness of breath. CARDIOVASCULAR: Congestive heart failure, positive troponin. GASTROINTESTINAL: No vomiting. GENITOURINARY: No hematuria. MUSCULOSKELETAL: Degenerative joint disease. PSYCHIATRIC: The patient denies depression. NEUROLOGIC: No documented history of CVA. PHYSICAL EXAMINATION: VITAL SIGNS: Temperature 98, blood pressure of 98/50, pulse 80, respiratory 20, saturating 98%. GENERAL: The patient is sleeping, but arousable. NECK: JVP approximately 9 cm water. CHEST: Bibasilar crackles. HEART: Regular rate and rhythm. Normal S1, S2, I/ systolic murmur, nondisplaced PMI. ABDOMEN: Positive bowel sounds, soft. EXTREMITIES: Trace edema, 1+ pulses bilaterally, posterior tibial. LABORATORY DATA: As above in HPI with most recently from today, white cell count 6.9, hemoglobin 9. 9, platelet count of 77. Sodium 138, potassium 3.4, creatinine 1.1, BUN of 22. LDL 64, HDL 20. IN R of 1.37. IMAGING STUDIES: As above in HPI. No further imaging studies for my review at this time. ECG: As above in HPI. No further electrocardiograms for my review at this time. IMPRESSION: 1. Positive troponin, assess significance in the absence of chest pain at this time. 2. Congestive heart failure, systolic, acute on chronic, by most recent echo. 3. History of permanent pacemaker. 4. History paroxysmal atrial fibrillation, not currently on systemic anticoagulation. 5. Cardiomyopathy with decreased left ventricular ejection fraction. 6. Dyslipidemia. 7. Hypertension, reasonable control. 8. Hypothyroidism. 9. Fevers, chills, assess for source of infection. 10. Thrombocytopenia, worsening. RECOMMENDATIONS: 1. At this time, would maintain the patient on telemetry monitoring to follow rhythm and rate contr ol closely. 2. We will continue to trend the patient's cardiac enzymes to assess for any significant ongoing ca rdiac damage. 3. The patient's repeat echo is read as having significantly decreased EF at 25% per echo read. Co ntinue the patient's current Cozaar as tolerated and metoprolol. 4. Continue patient's current statin. 5. Place the patient on gentle Lasix diuresis, following strict I's and O's to grade diuresis close ly. 6. Continue the patient's amiodarone and attempt to maintain sinus rhythm. The patient is a poor a nticoagulation candidate at this time given thrombocytopenia. 7. Continue to follow up culture data assess for source of infection. Thank you for allowing me to take part in the care of this patient. I will continue to follow along very closely with you. Further recommendations will be made as the patient progresses through her inpatient hospital clinical course. Dictated By: MATHEW BACH/JARRELL Conf#: [id number] DID#: [id number] CC: LAINEY AGARWAL MD;*EndCC*
[2016-08-01] VITALS (12 sets, daily range): BP systolic 97–134; BP diastolic 53–83; PULSE 80; RESP 18–20
[2016-08-01] MEDS: ACCU-CHEK XX SCH (02:00)
[2016-08-01] MEDS: FUROSEMIDE 20 MG INJ IV SCH ×2 (06:39→17:42)
[2016-08-01] MEDS: LEVOTHYROXINE 100 MCG TAB PO SCH (06:39)
[2016-08-01] MEDS: INSULIN ASPART [NOVOLOG] 3 ML PEN SC SCH ×4 (08:00→20:28)
[2016-08-01] MEDS: AMIODARONE 200 MG TAB PO SCH (08:25)
[2016-08-01] MEDS: POTASSIUM CHLORIDE (SR) 8 MEQ CAP PO SCH ×2 (08:25→20:30)
[2016-08-01] MEDS: FERROUS SULFATE (EC) 325 MG TAB PO SCH ×2 (08:25→20:30)
[2016-08-01] MEDS: METOPROLOL (XL) 25 MG TAB PO SCH ×2 (08:26→20:31)
[2016-08-01] MEDS: LOSARTAN 25 MG TAB PO SCH (08:26)
[2016-08-01] MEDS: HEPARIN 5,000 UNIT/0.5 ML SYG SC SCH ×2 (08:27→20:32)
[2016-08-01 08:33] LABS: POTASSIUM 3.8 mmol/L (3.5-5.1)
[2016-08-01 08:36] LABS: CREATININE 0.91 mg/dl (0.44-1.00)
[2016-08-01 08:37] LABS: CALCIUM 8.4 mg/dl (8.4-10.2)
[2016-08-01] MEDS: metFORMIN 500 MG TAB PO SCH ×2 (08:38→18:05)
[2016-08-01 09:33] LABS: CREATINE KINASE < 20 IU/L (23-200)
[2016-08-01 09:45] LABS: CK-MB 0.34 ng/ml (0.0-2.4)
[2016-08-01 10:02] LABS: TROPONIN-I 0.245 ng/ml (0.00-0.12)
--- NOTE | 2016-08-01 10:17 | CONS ---
Date/Time of Note Date/Time of Note DATE: 08/01/16 TIME: 10:15 Assessment/Plan Assessment/Plan Additional Assessment/Plan 1. Positive troponin, assess significance in the absence of chest pain at this time- no chest pain now, con't fluid optimization. 2. Congestive heart failure, systolic, acute on chronic, by most recent echo- acute on chronic, remove fluid as tolerated. 3. History of permanent pacemaker- good function. 4. History paroxysmal atrial fibrillation, not currently on systemic anticoagulation - with thrombocytopenia. 5. Cardiomyopathy with decreased left ventricular ejection fraction. 6. Dyslipidemia. 7. Hypertension, reasonable control. 8. Hypothyroidism. 9. Fevers, chills, assess for source of infection. 10. Thrombocytopenia, worsening. Consultation Date/Type/Reason Admit Date/Time Jul 30, 2016 at 18:04 Initial Consult Date 24 HR Interval Summary Free Text/Dictation NO acute change - better fluid satus - paced on tele. ROS: No fever, no chills, no nausea, no vomiting, no diarrhea/constipation No recent weight changes No chest pain, no PND, no orthopnea + SOB, better No dizziness, blurred vision No thirst, no heat or cold intolerance Exam/Review of Systems Vital Signs Vitals Vital Signs Date Time Temp Pulse Resp B/P Pulse Ox O2 Delivery O2 Flow Rate FiO2 08/01/16 08:33 80 08/01/16 08:08 97.7 20 134/83 95 07/31/16 20:00 Nasal Cannula 2.0 Intake and Output 07/31/16 07/31/16 08/01/16 15:00 23:00 07:00 Intake Total 1000 ml 250 ml Balance 1000 ml 250 ml Exam General: WN/WD/NAD, AOx 2-3 HEENT: Unicetric/atraumatic/EOMI (follow commands) NECK: JVD elevated, no thyromegaly Lymph: no lymphadenopathy HEART: regular with occ IRREG no S3, II/ systolic murmur at apex LUNGS: Coarse sounds ABD: soft, NT, ND, +BS : Intact Neuro: non focal SKIN: chronic changes EXT: trace edema Results Result Diagram: 07/31/16 0542 08/01/16 0612 Results 24 hrs Laboratory Tests Test 07/31/16 17:24 07/31/16 21:33 08/01/16 06:12 08/01/16 07:26 Bedside Glucose 116 159 134 Sodium Level 131 L Potassium Level 3.8 Chloride Level 99 Carbon Dioxide Level 28 Anion Gap 8 Blood Urea Nitrogen 22 H Creatinine 0.91 Glucose Level 127 Calcium Level 8.4 Creatine Kinase < 20 L Creatine Kinase Index Creatinine Kinase MB (Mass) 0.34 Troponin I 0.245 *H Medications Medications Current Medications Lorazepam (Ativan) 0.25 mg Q8H PRN PO ANXIETY Last administered on 07/31/16 21 :40; Admin Dose 0.25 MG; Start 07/30/16 at 20:30 Nitroglycerin (Nitroglycerin (Sl Tab) 0.4 Mg) 1 tab Q5M PRN SL CHEST PAIN; Start 07/30/16 at 20:30 Acetaminophen (Tylenol Tab) 650 mg Q6H PRN PO PAIN LEVEL 1-3 OR FEVER Last administered on 07/30/16 21:48; Admin Dose 650 MG; Start 07/30/16 at 20:30 Acetaminophen/ Hydrocodone Bitart ([place] (5/325)) 1 tab Q6H PRN PO PAIN LEVEL 4 -6; Start 07/30/16 at 20:30 Morphine Sulfate (morphine) 2 mg Q4H PRN IV PAIN LEVEL 7-10; Start 07/30/16 at 20:30 Amiodarone HCl (Cordarone) 200 mg DAILY PO Last administered on 08/01/16 08:25 ; Admin Dose 200 MG; Start 07/31/16 at 09:00 Digoxin (Digoxin) 0.125 mg DAILY@13 PO Last administered on 07/31/16 12:50; Admin Dose 0.125 MG; Start 07/31/16 at 13:00 Ferrous Sulfate (Ferrous Sulfate (Ec)) 325 mg BID PO Last administered on 08:25; Admin Dose 325 MG; Start 07/30/16 at 21:00 Potassium Chloride (Micro-K) 8 meq BID PO Last administered on 08/01/16 08:25 ; Admin Dose 8 MEQ; Start 07/30/16 at 21:00 Atorvastatin Calcium (Lipitor) 40 mg DAILY@21 PO Last administered on 21:30; Admin Dose 40 MG; Start 07/31/16 at 21:00 Heparin Sodium (Porcine) (Heparin (5000 Units/0.5 ml)) 5,000 unit BID SC Last administered on 08/01/16 08:27; Admin Dose 5,000 UNIT; Start 07/31/16 at 15:00 Losartan Potassium (Cozaar) 25 mg DAILY PO Last administered on 08/01/16 08:26 ; Admin Dose 25 MG; Start 08/01/16 at 09:00 Metoprolol Succinate (Toprol Xl) 25 mg BID PO Last administered on 08/01/16 08 :26; Admin Dose 25 MG; Start 07/31/16 at 21:00 Diagnostic Test (Pha) (Accu-Chek) 1 ea 02 XX ; Start 08/01/16 at 02:00 Miscellaneous Information 1 ea NOTE XX ; Start 07/31/16 at 19:30 Glucose (Glutose) 15 gm Q15M PRN PO DECREASED GLUCOSE; Start 07/31/16 at 19:30 Glucose (Glutose) 22.5 gm Q15M PRN PO DECREASED GLUCOSE; Start 07/31/16 at 19: 30 Dextrose (D50w Syringe) 25 ml Q15M PRN IV DECREASED GLUCOSE; Start 07/31/16 at 19:30 Dextrose (D50w Syringe) 50 ml Q15M PRN IV DECREASED GLUCOSE; Start 07/31/16 at 19:30 Glucagon (Glucagen) 1 mg Q15M PRN IM DECREASED GLUCOSE; Start 07/31/16 at 19:30 Glucose (Glutose) 15 gm Q15M PRN BUCCAL DECREASED GLUCOSE; Start 07/31/16 at 19 :30 MILAGROS PRESSLEY MD Aug 01, 2016 10:17
[2016-08-01] MEDS: DIGOXIN 0.125 MG TAB PO SCH (12:26)
--- NOTE | 2016-08-01 13:02 | PN ---
Date/Time of Note Date/Time of Note DATE: 08/01/16 TIME: 12:53 Assessment/Plan VTE Prophylaxis VTE Prophylaxis Intervention: heparin Lines/Catheters IV Catheter Type (from Nrs): Saline Lock Urinary Cath still in place: No Assessment/Plan Assessment/Plan 1) Acute exacerbation of CHF, Acute on Chronic, systolic and diastolic, LVEF 25 % on 07/30/2016, improving 2) Dilated cardiomyopathy, follow up with cardiology 3) Mildly elevated troponin, follow up with cardiology 4) Hypothyroidism, increase synthroid due to high TSH 5) s/p Pacemaker Status 6) Atrial fibrillation, pacing rhythm, not on anticoagulant 7) Normocytic anemia, stable 8) Thrombocytopenia, likely viral infection, follow up with PLT Subjective 24 Hr Interval Summary Free Text/Dictation no chills. no shortness of breath. no fever. no dizziness Exam/Review of Systems Vital Signs Vitals Vital Signs Date Time Temp Pulse Resp B/P Pulse Ox O2 Delivery O2 Flow Rate FiO2 08/01/16 12:28 98.4 67 20 97/55 95 07/31/16 20:00 Nasal Cannula 2.0 Intake and Output 07/31/16 07/31/16 08/01/16 14:59 22:59 06:59 Intake Total 1000 ml 250 ml Balance 1000 ml 250 ml Exam Constitutional: alert, oriented, well developed Psych: nl mood/affect, no complaints Head: atraumatic, normocephalic Eyes: EOMI, nl conjunctiva, nl lids ENMT: nl external ears & nose, nl lips & teeth, nl nasal mucosa & septum Neck: non-tender, supple Respiratory: clear to auscultation, normal air movement, No congested cough, No crackles/rales, No diminished breath sounds, No intercostal retraction, No labored breathing, No other, No respirations, No tactile fremitus, No wheezing Cardiovascular: irregular rhythm, nl pulses, No S3, No S4, No bruits, No diastolic murmur, No edema, No gallop, No jugular venous distention (JVD), No murmurs/extra sounds, No other, No rub, No systolic murmur Gastrointestinal: nl liver, spleen, non-tender, soft, No ascites, No bowel sounds, No distended, No firm, No hepatomegaly, No mass , No other, No rebound or guarding, No splenomegaly, No surgical scars, No tender Musculoskeletal: nl extremities to inspection Extremities: normal pulses, No calf tenderness, No clubbing, No cyanosis, No edema, No other, No palpable cord, No pitting pedal edema, No tenderness 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, nl mental status, nl speech, nl strength Skin: nl turgor Lymph: nl lymph nodes Results Result Diagram: 07/31/16 0542 08/01/16 0612 Results 24 hrs Laboratory Tests Test 07/31/16 17:24 07/31/16 21:33 08/01/16 06:12 08/01/16 07:26 Bedside Glucose 116 159 134 Sodium Level 131 L Potassium Level 3.8 Chloride Level 99 Carbon Dioxide Level 28 Anion Gap 8 Blood Urea Nitrogen 22 H Creatinine 0.91 Glucose Level 127 Calcium Level 8.4 Creatine Kinase < 20 L Creatine Kinase Index Creatinine Kinase MB (Mass) 0.34 Troponin I 0.245 *H Test 08/01/16 11:24 Bedside Glucose 182 Medications Medications Current Medications Lorazepam (Ativan) 0.25 mg Q8H PRN PO ANXIETY Last administered on 07/31/16 21 :40; Admin Dose 0.25 MG; Start 07/30/16 at 20:30 Nitroglycerin (Nitroglycerin (Sl Tab) 0.4 Mg) 1 tab Q5M PRN SL CHEST PAIN; Start 07/30/16 at 20:30 Acetaminophen (Tylenol Tab) 650 mg Q6H PRN PO PAIN LEVEL 1-3 OR FEVER Last administered on 07/30/16 21:48; Admin Dose 650 MG; Start 07/30/16 at 20:30 Acetaminophen/ Hydrocodone Bitart ([place] (5/325)) 1 tab Q6H PRN PO PAIN LEVEL 4 -6; Start 07/30/16 at 20:30 Morphine Sulfate (morphine) 2 mg Q4H PRN IV PAIN LEVEL 7-10; Start 07/30/16 at 20:30 Amiodarone HCl (Cordarone) 200 mg DAILY PO Last administered on 08/01/16 08:25 ; Admin Dose 200 MG; Start 07/31/16 at 09:00 Digoxin (Digoxin) 0.125 mg DAILY@13 PO Last administered on 08/01/16 12:26; Admin Dose 0.125 MG; Start 07/31/16 at 13:00 Ferrous Sulfate (Ferrous Sulfate (Ec)) 325 mg BID PO Last administered on 08:25; Admin Dose 325 MG; Start 07/30/16 at 21:00 Potassium Chloride (Micro-K) 8 meq BID PO Last administered on 08/01/16 08:25 ; Admin Dose 8 MEQ; Start 07/30/16 at 21:00 Atorvastatin Calcium (Lipitor) 40 mg DAILY@21 PO Last administered on 21:30; Admin Dose 40 MG; Start 07/31/16 at 21:00 Heparin Sodium (Porcine) (Heparin (5000 Units/0.5 ml)) 5,000 unit BID SC Last administered on 08/01/16 08:27; Admin Dose 5,000 UNIT; Start 07/31/16 at 15:00 Losartan Potassium (Cozaar) 25 mg DAILY PO Last administered on 08/01/16 08:26 ; Admin Dose 25 MG; Start 08/01/16 at 09:00 Metoprolol Succinate (Toprol Xl) 25 mg BID PO Last administered on 08/01/16 08 :26; Admin Dose 25 MG; Start 07/31/16 at 21:00 Diagnostic Test (Pha) (Accu-Chek) 1 ea 02 XX ; Start 08/01/16 at 02:00 Miscellaneous Information 1 ea NOTE XX ; Start 07/31/16 at 19:30 Glucose (Glutose) 15 gm Q15M PRN PO DECREASED GLUCOSE; Start 07/31/16 at 19:30 Glucose (Glutose) 22.5 gm Q15M PRN PO DECREASED GLUCOSE; Start 07/31/16 at 19: 30 Dextrose (D50w Syringe) 25 ml Q15M PRN IV DECREASED GLUCOSE; Start 07/31/16 at 19:30 Dextrose (D50w Syringe) 50 ml Q15M PRN IV DECREASED GLUCOSE; Start 07/31/16 at 19:30 Glucagon (Glucagen) 1 mg Q15M PRN IM DECREASED GLUCOSE; Start 07/31/16 at 19:30 Glucose (Glutose) 15 gm Q15M PRN BUCCAL DECREASED GLUCOSE; Start 07/31/16 at 19 :30 BRITTANY OLIVEIRA MD Aug 01, 2016 13:02
[2016-08-01] MEDS: ATORVASTATIN 40 MG TAB PO SCH (20:30)
[2016-08-01] MEDS: ACETAMINOPHEN 325 MG TAB PO PRN (22:24)
[2016-08-02] VITALS (11 sets, daily range): BP systolic 90–131; BP diastolic 48–60; PULSE 80; RESP 18–19
[2016-08-02] MEDS: ACCU-CHEK XX SCH (02:00)
[2016-08-02] MEDS: LEVOTHYROXINE 100 MCG TAB PO SCH (06:24)
[2016-08-02] MEDS: FUROSEMIDE 20 MG INJ IV SCH ×2 (06:25→18:13)
[2016-08-02 06:49] LABS: ADD SCAN DIFF NO
[2016-08-02 06:52] LABS: ABNORMAL IP MESSAGE 1; BASOPHILS % 0.2 % (0.0-2.0); EOSINOPHILS % 0.7 % (0.0-7.0); HEMOGLOBIN 9.2 g/dl (12.0-16.0); LYMPHOCYTES # 0.4 10^3/ul (0.8-2.9); LYMPHOCYTES % 9.3 % (15.0-51.0); MEAN CORPUSCULAR HEMOGLOBIN 26.1 pg (29.0-33.0); MEAN CORPUSCULAR HGB CONC 31.7 g/dl (32.0-37.0); MEAN CORPUSCULAR VOLUME 82.2 fl (82.0-101.0); MONOCYTE # 0.4 10^3/ul (0.3-0.9); MONOCYTES % 9.1 % (0.0-11.0); NEUTROPHIL # 3.7 10^3/ul (1.6-7.5); NEUTROPHILS % 80.5 % (39.0-77.0); PLATELET COUNT 87 10^3/UL (140-415); RED BLOOD COUNT 3.53 10^6/ul (4.20-5.40); RED CELL DISTRIBUTION WIDTH 22.6 % (11.5-14.5); WHITE BLOOD COUNT 4.6 10^3/ul (4.8-10.8)
[2016-08-02 07:15] LABS: POTASSIUM 3.7 mmol/L (3.5-5.1)
[2016-08-02 07:17] LABS: CREATININE 0.89 mg/dl (0.44-1.00)
[2016-08-02 07:18] LABS: CALCIUM 8.5 mg/dl (8.4-10.2)
[2016-08-02] MEDS: INSULIN ASPART [NOVOLOG] 3 ML PEN SC SCH ×4 (08:00→20:41)
[2016-08-02] MEDS: metFORMIN 500 MG TAB PO SCH ×2 (09:05→18:13)
[2016-08-02] MEDS: FERROUS SULFATE (EC) 325 MG TAB PO SCH ×2 (09:05→20:40)
[2016-08-02] MEDS: POTASSIUM CHLORIDE (SR) 8 MEQ CAP PO SCH ×2 (09:06→20:40)
[2016-08-02] MEDS: AMIODARONE 200 MG TAB PO SCH (09:06)
[2016-08-02] MEDS: METOPROLOL (XL) 25 MG TAB PO SCH ×2 (09:07→20:41)
[2016-08-02] MEDS: HEPARIN 5,000 UNIT/0.5 ML SYG SC SCH ×2 (09:08→20:44)
[2016-08-02] MEDS: LOSARTAN 25 MG TAB PO SCH (09:10)
[2016-08-02] MEDS: DIGOXIN 0.125 MG TAB PO SCH (13:08)
--- NOTE | 2016-08-02 14:20 | PN ---
Date/Time of Note Date/Time of Note DATE: 08/02/16 TIME: 14:17 Assessment/Plan VTE Prophylaxis VTE Prophylaxis Intervention: heparin Lines/Catheters IV Catheter Type (from Nrs): Saline Lock Urinary Cath still in place: No Assessment/Plan Assessment/Plan 1) Acute exacerbation of CHF, Acute on Chronic, systolic and diastolic, LVEF 25 % on 07/30/2016, improving 2) Dilated cardiomyopathy, follow up with cardiology 3) Mildly elevated troponin, follow up with cardiology 4) Hypothyroidism, increase synthroid due to high TSH 5) s/p Pacemaker Status 6) Atrial fibrillation, pacing rhythm, not on anticoagulant 7) Normocytic anemia, stable 8) Thrombocytopenia, likely viral infection, stable, follow up with PLT Subjective 24 Hr Interval Summary Free Text/Dictation right calf pain and swelling Exam/Review of Systems Vital Signs Vitals Vital Signs Date Time Temp Pulse Resp B/P Pulse Ox O2 Delivery O2 Flow Rate FiO2 08/02/16 12:27 80 08/02/16 12:01 97.6 18 90/48 94 07/31/16 20:00 Nasal Cannula 2.0 Intake and Output 08/01/16 08/01/16 08/02/16 15:00 23:00 07:00 Intake Total 300 ml Balance 300 ml Exam Constitutional: alert, oriented, well developed Psych: nl mood/affect, no complaints Head: atraumatic, normocephalic Eyes: EOMI, nl conjunctiva, nl lids ENMT: nl external ears & nose, nl lips & teeth, nl nasal mucosa & septum Neck: non-tender, supple Respiratory: clear to auscultation, normal air movement, No congested cough, No crackles/rales, No diminished breath sounds, No intercostal retraction, No labored breathing, No other, No respirations, No tactile fremitus, No wheezing Cardiovascular: nl pulses, regular rate and rhythm, No S3, No S4, No bruits, No diastolic murmur, No edema, No gallop, No irregular rhythm, No jugular venous distention (JVD), No murmurs/extra sounds, No other, No rub, No systolic murmur Gastrointestinal: nl liver, spleen, non-tender, soft, No ascites, No bowel sounds, No distended, No firm, No hepatomegaly, No mass , No other, No rebound or guarding, No splenomegaly, No surgical scars, No tender Musculoskeletal: nl extremities to inspection Extremities: edema (both lower extremities, right more than left) 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, nl mental status, nl speech, nl strength Skin: nl turgor Lymph: nl lymph nodes Results Result Diagram: 08/02/16 0635 08/02/16 0635 Results 24 hrs Laboratory Tests Test 08/01/16 20:27 08/02/16 06:35 08/02/16 07:39 08/02/16 11:29 Bedside Glucose 171 99 157 White Blood Count 4.6 #L Red Blood Count 3.53 L Hemoglobin 9.2 L Hematocrit 29.0 L Mean Corpuscular Volume 82.2 Mean Corpuscular Hemoglobin 26.1 L Mean Corpuscular Hemoglobin Concent 31.7 L Red Cell Distribution Width 22.6 H Platelet Count 87 L Mean Platelet Volume Neutrophils % 80.5 H Lymphocytes % 9.3 L Monocytes % 9.1 Eosinophils % 0.7 Basophils % 0.2 Nucleated Red Blood Cells % 0.0 Neutrophils # 3.7 Lymphocytes # 0.4 L Monocytes # 0.4 Eosinophils # 0.0 Basophils # 0.0 Nucleated Red Blood Cells # 0.0 Sodium Level 135 Potassium Level 3.7 Chloride Level 102 Carbon Dioxide Level 27 Anion Gap 10 Blood Urea Nitrogen 22 H Creatinine 0.89 Glucose Level 97 Calcium Level 8.5 Medications Medications Current Medications Lorazepam (Ativan) 0.25 mg Q8H PRN PO ANXIETY Last administered on 07/31/16 21 :40; Admin Dose 0.25 MG; Start 07/30/16 at 20:30 Nitroglycerin (Nitroglycerin (Sl Tab) 0.4 Mg) 1 tab Q5M PRN SL CHEST PAIN; Start 07/30/16 at 20:30 Acetaminophen (Tylenol Tab) 650 mg Q6H PRN PO PAIN LEVEL 1-3 OR FEVER Last administered on 08/01/16 22:24; Admin Dose 650 MG; Start 07/30/16 at 20:30 Acetaminophen/ Hydrocodone Bitart ([place] (5/325)) 1 tab Q6H PRN PO PAIN LEVEL 4 -6; Start 07/30/16 at 20:30 Morphine Sulfate (morphine) 2 mg Q4H PRN IV PAIN LEVEL 7-10; Start 07/30/16 at 20:30 Amiodarone HCl (Cordarone) 200 mg DAILY PO Last administered on 08/02/16 09:06 ; Admin Dose 200 MG; Start 07/31/16 at 09:00 Digoxin (Digoxin) 0.125 mg DAILY@13 PO Last administered on 08/02/16 13:08; Admin Dose 0.125 MG; Start 07/31/16 at 13:00 Ferrous Sulfate (Ferrous Sulfate (Ec)) 325 mg BID PO Last administered on 09:05; Admin Dose 325 MG; Start 07/30/16 at 21:00 Potassium Chloride (Micro-K) 8 meq BID PO Last administered on 08/02/16 09:06 ; Admin Dose 8 MEQ; Start 07/30/16 at 21:00 Atorvastatin Calcium (Lipitor) 40 mg DAILY@21 PO Last administered on 20:30; Admin Dose 40 MG; Start 07/31/16 at 21:00 Heparin Sodium (Porcine) (Heparin (5000 Units/0.5 ml)) 5,000 unit BID SC Last administered on 08/02/16 09:08; Admin Dose 5,000 UNIT; Start 07/31/16 at 15:00 Losartan Potassium (Cozaar) 25 mg DAILY PO Last administered on 08/02/16 09:10 ; Admin Dose 25 MG; Start 08/01/16 at 09:00 Metoprolol Succinate (Toprol Xl) 25 mg BID PO Last administered on 08/02/16 09 :07; Admin Dose 25 MG; Start 07/31/16 at 21:00 Diagnostic Test (Pha) (Accu-Chek) 1 ea 02 XX ; Start 08/01/16 at 02:00 Miscellaneous Information 1 ea NOTE XX ; Start 07/31/16 at 19:30 Glucose (Glutose) 15 gm Q15M PRN PO DECREASED GLUCOSE; Start 07/31/16 at 19:30 Glucose (Glutose) 22.5 gm Q15M PRN PO DECREASED GLUCOSE; Start 07/31/16 at 19: 30 Dextrose (D50w Syringe) 25 ml Q15M PRN IV DECREASED GLUCOSE; Start 07/31/16 at 19:30 Dextrose (D50w Syringe) 50 ml Q15M PRN IV DECREASED GLUCOSE; Start 07/31/16 at 19:30 Glucagon (Glucagen) 1 mg Q15M PRN IM DECREASED GLUCOSE; Start 07/31/16 at 19:30 Glucose (Glutose) 15 gm Q15M PRN BUCCAL DECREASED GLUCOSE; Start 07/31/16 at 19 :30 BRITTANY OLIVEIRA MD Aug 02, 2016 14:20
--- NOTE | 2016-08-02 15:16 | RADRPT ---
PROCEDURE: Ultrasound of the bilateral lower extremity venous system. CLINICAL INDICATION: Bilateral leg pain and swelling, deep venous thrombosis TECHNIQUE: Silverman scale with and without compression, color doppler, spectral doppler of the venous system of the bilateral lower extremities was performed. Venous augmentation maneuvers were utilized . COMPARISON: 06/16/2016 FINDINGS: RIGHT: Common femoral vein: Patent. Femoral vein: Patent. Popliteal vein: Patent. Calf veins: Patent. No soft tissue abnormalities are identified. LEFT: Common femoral vein: Patent. Femoral vein: Patent. Popliteal vein: Patent. Calf veins: Patent. No soft tissue abnormalities are identified. IMPRESSION: No evidence of a deep vein thrombosis within the bilateral lower extremities. RPTAT: AADD .Feroz Hamm MD, MD Date Time Electronically viewed and signed by .Feroz Hamm MD, on 08/02/2016 15:16 .B/
--- NOTE | 2016-08-02 17:09 | CONS ---
Date/Time of Note Date/Time of Note DATE: 08/02/16 TIME: 17:03 Assessment/Plan Assessment/Plan Chief Complaint/Hosp Course IMPRESSION: 1. Positive troponin, assess significance in the absence of chest pain at this time-no sig uptrend 2. Congestive heart failure, systolic, acute on chronic, by most recent echo. EF newly depressed at 25% ? ischemia event versus alternative etiology takotsubo /viral 3. History of permanent pacemaker. 4. History paroxysmal atrial fibrillation, not currently on systemic anticoagulation-due to low platelets 5. Cardiomyopathy with decreased left ventricular ejection fraction. 6. Dyslipidemia. 7. Hypertension, reasonable control. 8. Hypothyroidism. 9. Fevers, chills, assess for source of infection. 10. Thrombocytopenia Recc: -Tele -serial ecg's -Continue cozaar/Toprol XL -Continue digoxin -Continue lasix diuresis -Continue statin-Continue amiodarone -LHC with possible PTCA/stent tomorrow at 1:00pm if patient is agreeable Problems: Consultation Date/Type/Reason Admit Date/Time Jul 30, 2016 at 18:04 Initial Consult Date 07/31/2016 Type of Consultation: Cardiology Reason for Consultation CHF/cardiomyopathy Referring Provider: RICO GREY MD Exam/Review of Systems Vital Signs Vitals Vital Signs Date Time Temp Pulse Resp B/P Pulse Ox O2 Delivery O2 Flow Rate FiO2 08/02/16 16:07 80 08/02/16 16:05 98.9 19 112/53 98 07/31/16 20:00 Nasal Cannula 2.0 Intake and Output 08/01/16 08/01/16 08/02/16 15:00 23:00 07:00 Intake Total 300 ml Balance 300 ml Exam Review of Systems: CONSTITUTIONAL: No fevers, chills. PULMONARY: No sob CARDIOVASCULAR: No chest pain/palpitations GASTROINTESTINAL: No nausea/vomiting. GENITOURINARY: No hematuria/dysuria. MUSCULOSKELETAL: No myagias/arthalgias. PSYCHIATRIC: The patient denies depression. NEUROLOGIC: generalized weakness Constitutional: alert Psych: no complaints Head: normocephalic ENMT: mucosa pink and moist Neck: jvd (9 cm water), supple Respiratory: diminished breath sounds (at bases/B) Cardiovascular: regular rate and rhythm Gastrointestinal: non-tender, soft Musculoskeletal: muscle tone (normal) Extremities: edema (trace/B) Neurological: lethargic Results Result Diagram: 08/02/16 0635 08/02/16 0635 Results 24 hrs Laboratory Tests Test 08/01/16 20:27 08/02/16 06:35 08/02/16 07:39 08/02/16 11:29 Bedside Glucose 171 99 157 White Blood Count 4.6 #L Red Blood Count 3.53 L Hemoglobin 9.2 L Hematocrit 29.0 L Mean Corpuscular Volume 82.2 Mean Corpuscular Hemoglobin 26.1 L Mean Corpuscular Hemoglobin Concent 31.7 L Red Cell Distribution Width 22.6 H Platelet Count 87 L Mean Platelet Volume Neutrophils % 80.5 H Lymphocytes % 9.3 L Monocytes % 9.1 Eosinophils % 0.7 Basophils % 0.2 Nucleated Red Blood Cells % 0.0 Neutrophils # 3.7 Lymphocytes # 0.4 L Monocytes # 0.4 Eosinophils # 0.0 Basophils # 0.0 Nucleated Red Blood Cells # 0.0 Sodium Level 135 Potassium Level 3.7 Chloride Level 102 Carbon Dioxide Level 27 Anion Gap 10 Blood Urea Nitrogen 22 H Creatinine 0.89 Glucose Level 97 Calcium Level 8.5 Medications Medications Current Medications Lorazepam (Ativan) 0.25 mg Q8H PRN PO ANXIETY Last administered on 07/31/16 21 :40; Admin Dose 0.25 MG; Start 07/30/16 at 20:30 Nitroglycerin (Nitroglycerin (Sl Tab) 0.4 Mg) 1 tab Q5M PRN SL CHEST PAIN; Start 07/30/16 at 20:30 Acetaminophen (Tylenol Tab) 650 mg Q6H PRN PO PAIN LEVEL 1-3 OR FEVER Last administered on 08/01/16 22:24; Admin Dose 650 MG; Start 07/30/16 at 20:30 Acetaminophen/ Hydrocodone Bitart ([place] (5/325)) 1 tab Q6H PRN PO PAIN LEVEL 4 -6; Start 07/30/16 at 20:30 Morphine Sulfate (morphine) 2 mg Q4H PRN IV PAIN LEVEL 7-10; Start 07/30/16 at 20:30 Amiodarone HCl (Cordarone) 200 mg DAILY PO Last administered on 08/02/16 09:06 ; Admin Dose 200 MG; Start 07/31/16 at 09:00 Digoxin (Digoxin) 0.125 mg DAILY@13 PO Last administered on 08/02/16 13:08; Admin Dose 0.125 MG; Start 07/31/16 at 13:00 Ferrous Sulfate (Ferrous Sulfate (Ec)) 325 mg BID PO Last administered on 09:05; Admin Dose 325 MG; Start 07/30/16 at 21:00 Potassium Chloride (Micro-K) 8 meq BID PO Last administered on 08/02/16 09:06 ; Admin Dose 8 MEQ; Start 07/30/16 at 21:00 Atorvastatin Calcium (Lipitor) 40 mg DAILY@21 PO Last administered on 20:30; Admin Dose 40 MG; Start 07/31/16 at 21:00 Heparin Sodium (Porcine) (Heparin (5000 Units/0.5 ml)) 5,000 unit BID SC Last administered on 08/02/16 09:08; Admin Dose 5,000 UNIT; Start 07/31/16 at 15:00 Losartan Potassium (Cozaar) 25 mg DAILY PO Last administered on 08/02/16 09:10 ; Admin Dose 25 MG; Start 08/01/16 at 09:00 Metoprolol Succinate (Toprol Xl) 25 mg BID PO Last administered on 08/02/16 09 :07; Admin Dose 25 MG; Start 07/31/16 at 21:00 Diagnostic Test (Pha) (Accu-Chek) 1 ea 02 XX ; Start 08/01/16 at 02:00 Miscellaneous Information 1 ea NOTE XX ; Start 07/31/16 at 19:30 Glucose (Glutose) 15 gm Q15M PRN PO DECREASED GLUCOSE; Start 07/31/16 at 19:30 Glucose (Glutose) 22.5 gm Q15M PRN PO DECREASED GLUCOSE; Start 07/31/16 at 19: 30 Dextrose (D50w Syringe) 25 ml Q15M PRN IV DECREASED GLUCOSE; Start 07/31/16 at 19:30 Dextrose (D50w Syringe) 50 ml Q15M PRN IV DECREASED GLUCOSE; Start 07/31/16 at 19:30 Glucagon (Glucagen) 1 mg Q15M PRN IM DECREASED GLUCOSE; Start 07/31/16 at 19:30 Glucose (Glutose) 15 gm Q15M PRN BUCCAL DECREASED GLUCOSE; Start 07/31/16 at 19 :30 MATHEW AMADO Aug 02, 2016 17:09
[2016-08-02] MEDS: ATORVASTATIN 40 MG TAB PO SCH (20:40)
[2016-08-02] MEDS: ACETAMINOPHEN 325 MG TAB PO PRN (23:22)
[2016-08-03] VITALS (33 sets, daily range): BP systolic 97–139; BP diastolic 49–63; PULSE 80–105; RESP 16–25
[2016-08-03] MEDS: ACCU-CHEK XX SCH ×3 (01:49→21:05)
[2016-08-03] MEDS: FUROSEMIDE 20 MG INJ IV SCH ×2 (06:00→18:16)
[2016-08-03] MEDS: LEVOTHYROXINE 100 MCG TAB PO SCH (06:30)
[2016-08-03] MEDS: metFORMIN 500 MG TAB PO SCH (08:00)
[2016-08-03] MEDS: INSULIN ASPART [NOVOLOG] 3 ML PEN SC SCH ×4 (08:00→21:00)
[2016-08-03 08:01] LABS: ADD SCAN DIFF NO
[2016-08-03 08:13] LABS: ABNORMAL IP MESSAGE 1; BASOPHILS % 0.4 % (0.0-2.0); EOSINOPHILS % 0.2 % (0.0-7.0); HEMATOCRIT 29.6 % (37.0-47.0); HEMOGLOBIN 9.3 g/dl (12.0-16.0); LYMPHOCYTES # 0.6 10^3/ul (0.8-2.9); LYMPHOCYTES % 10.5 % (15.0-51.0); MEAN CORPUSCULAR HEMOGLOBIN 26.1 pg (29.0-33.0); MEAN CORPUSCULAR HGB CONC 31.4 g/dl (32.0-37.0); MEAN CORPUSCULAR VOLUME 82.9 fl (82.0-101.0); MONOCYTE # 0.5 10^3/ul (0.3-0.9); MONOCYTES % 10.1 % (0.0-11.0); NEUTROPHIL # 4.1 10^3/ul (1.6-7.5); NEUTROPHILS % 78.4 % (39.0-77.0); PLATELET COUNT 89 10^3/UL (140-415); RED BLOOD COUNT 3.57 10^6/ul (4.20-5.40); RED CELL DISTRIBUTION WIDTH 23.2 % (11.5-14.5); WHITE BLOOD COUNT 5.3 10^3/ul (4.8-10.8)
[2016-08-03 08:21] LABS: INR 1.22; PROTIME 15.5 Sec (12.2-14.2); PT RATIO 1.2
[2016-08-03 08:26] LABS: POTASSIUM 3.8 mmol/L (3.5-5.1)
[2016-08-03 08:28] LABS: CREATININE 0.92 mg/dl (0.44-1.00)
[2016-08-03 08:29] LABS: CALCIUM 8.5 mg/dl (8.4-10.2)
[2016-08-03] MEDS: LOSARTAN 25 MG TAB PO SCH (09:00)
[2016-08-03] MEDS: METOPROLOL (XL) 25 MG TAB PO SCH ×2 (09:00→20:58)
[2016-08-03] MEDS ORDERED: DIPHENHYDRAMINE 50 MG CAP PO ONE (09:00)
[2016-08-03] MEDS ORDERED: DIAZEPAM 5 MG TAB PO ONE (09:00)
[2016-08-03] MEDS: HEPARIN 5,000 UNIT/0.5 ML SYG SC SCH ×2 (09:00→21:00)
[2016-08-03] MEDS: AMIODARONE 200 MG TAB PO SCH (09:49)
[2016-08-03] MEDS: POTASSIUM CHLORIDE (SR) 8 MEQ CAP PO SCH ×2 (09:50→20:54)
[2016-08-03] MEDS: FERROUS SULFATE (EC) 325 MG TAB PO SCH ×2 (09:54→20:53)
--- NOTE | 2016-08-03 10:18 | RADRPT ---
PROCEDURE: XR Chest. CLINICAL INDICATION: CHF TECHNIQUE: Single frontal view of the chest was obtained. COMPARISON: Chest x-ray from 07/30/2016 FINDINGS: A left-sided single lead pacemaker / AICD is again noted. There is stable moderate to severe cardiomegaly and low lung volumes with stable prominence of inter stitial markings, likely due to a combination of congestive changes and vascular crowding. The aortic arch is calcified. Trace bilateral pleural effusions seen previously appear to have resolved or decreased in size. There is decreased osseous mineralization. IMPRESSION: Stable cardiomegaly and low lung volumes with stable prominence of interstitial markings, likely due to a combination of congestive changes and vascular crowding. Trace bilateral pleural effusion seen previously have improved. Left-sided pacemaker / AICD. Aortic atherosclerosis. Osseous demineralization. RPTAT: EE Physician Rachelle Date Time Electronically viewed and signed by Physician Rachelle on 08/03/2016 10:18 RA/
--- NOTE | 2016-08-03 13:00 | CONS ---
Date/Time of Note Date/Time of Note DATE: 08/03/16 TIME: 12:59 Assessment/Plan Assessment/Plan Chief Complaint/Hosp Course IMPRESSION: 1. Positive troponin, assess significance in the absence of chest pain at this time-no sig uptrend 2. Congestive heart failure, systolic, acute on chronic, by most recent echo. EF newly depressed at 25% ? ischemia event versus alternative etiology takotsubo /viral 3. History of permanent pacemaker. 4. History paroxysmal atrial fibrillation, not currently on systemic anticoagulation-due to low platelets 5. Cardiomyopathy with decreased left ventricular ejection fraction. 6. Dyslipidemia. 7. Hypertension, reasonable control. 8. Hypothyroidism. 9. Fevers, chills, assess for source of infection. 10. Thrombocytopenia Recc: -Tele -serial ecg's -Continue cozaar/Toprol XL -Continue digoxin -Continue lasix diuresis -Continue statin-Continue amiodarone -LHC with possible PTCA/stent today Problems: Consultation Date/Type/Reason Admit Date/Time Jul 30, 2016 at 18:04 Initial Consult Date 07/31/2016 Type of Consultation: Cardiology Reason for Consultation Nstemi/CHF Referring Provider: RICO GREY MD Exam/Review of Systems Vital Signs Vitals Vital Signs Date Time Temp Pulse Resp B/P Pulse Ox O2 Delivery O2 Flow Rate FiO2 08/03/16 12:15 80 08/03/16 11:36 98.1 20 110/54 96 07/31/16 20:00 Nasal Cannula 2.0 Intake and Output 08/02/16 08/02/16 08/03/16 15:00 23:00 07:00 Intake Total 800 ml 300 ml Output Total 50 ml 500 ml Balance 750 ml -200 ml Exam Review of Systems: CONSTITUTIONAL: No fevers, chills. PULMONARY: mild sob CARDIOVASCULAR: No chest pain/palpitations GASTROINTESTINAL: No nausea/vomiting. GENITOURINARY: No hematuria/dysuria. MUSCULOSKELETAL: No myagias/arthalgias. PSYCHIATRIC: The patient denies depression. NEUROLOGIC: Mild generalized weakness Constitutional: alert Psych: no complaints Head: normocephalic ENMT: mucosa pink and moist Neck: jvd (9 cm water), supple Respiratory: diminished breath sounds Cardiovascular: regular rate and rhythm Gastrointestinal: non-tender, soft Musculoskeletal: muscle tone Extremities: normal pulses Neurological: focal weakness (none) Results Result Diagram: 08/03/16 0620 08/03/16 0620 Results 24 hrs Laboratory Tests Test 08/02/16 18:12 08/02/16 20:38 08/03/16 06:20 08/03/16 09:48 Bedside Glucose 169 148 93 White Blood Count 5.3 Red Blood Count 3.57 L Hemoglobin 9.3 L Hematocrit 29.6 L Mean Corpuscular Volume 82.9 Mean Corpuscular Hemoglobin 26.1 L Mean Corpuscular Hemoglobin Concent 31.4 L Red Cell Distribution Width 23.2 H Platelet Count 89 L Mean Platelet Volume Neutrophils % 78.4 H Lymphocytes % 10.5 L Monocytes % 10.1 Eosinophils % 0.2 Basophils % 0.4 Nucleated Red Blood Cells % 0.0 Neutrophils # 4.1 Lymphocytes # 0.6 L Monocytes # 0.5 Eosinophils # 0.0 Basophils # 0.0 Nucleated Red Blood Cells # 0.0 Prothrombin Time 15.5 H Prothrombin Time Ratio 1.2 INR International Normalized Ratio 1.22 Sodium Level 135 Potassium Level 3.8 Chloride Level 102 Carbon Dioxide Level 27 Anion Gap 10 Blood Urea Nitrogen 23 H Creatinine 0.92 Glucose Level 88 Calcium Level 8.5 Test 08/03/16 12:02 Bedside Glucose 94 Medications Medications Current Medications Lorazepam (Ativan) 0.25 mg Q8H PRN PO ANXIETY Last administered on 07/31/16 21 :40; Admin Dose 0.25 MG; Start 07/30/16 at 20:30 Nitroglycerin (Nitroglycerin (Sl Tab) 0.4 Mg) 1 tab Q5M PRN SL CHEST PAIN; Start 07/30/16 at 20:30 Acetaminophen (Tylenol Tab) 650 mg Q6H PRN PO PAIN LEVEL 1-3 OR FEVER Last administered on 08/02/16 23:22; Admin Dose 650 MG; Start 07/30/16 at 20:30 Acetaminophen/ Hydrocodone Bitart ([place] (5/325)) 1 tab Q6H PRN PO PAIN LEVEL 4 -6; Start 07/30/16 at 20:30 Morphine Sulfate (morphine) 2 mg Q4H PRN IV PAIN LEVEL 7-10; Start 07/30/16 at 20:30 Amiodarone HCl (Cordarone) 200 mg DAILY PO Last administered on 08/03/16 09:49 ; Admin Dose 200 MG; Start 07/31/16 at 09:00 Digoxin (Digoxin) 0.125 mg DAILY@13 PO Last administered on 08/02/16 13:08; Admin Dose 0.125 MG; Start 07/31/16 at 13:00 Ferrous Sulfate (Ferrous Sulfate (Ec)) 325 mg BID PO Last administered on 09:54; Admin Dose 325 MG; Start 07/30/16 at 21:00 Potassium Chloride (Micro-K) 8 meq BID PO Last administered on 08/03/16 09:50 ; Admin Dose 8 MEQ; Start 07/30/16 at 21:00 Atorvastatin Calcium (Lipitor) 40 mg DAILY@21 PO Last administered on 20:40; Admin Dose 40 MG; Start 07/31/16 at 21:00 Heparin Sodium (Porcine) (Heparin (5000 Units/0.5 ml)) 5,000 unit BID SC Last administered on 08/02/16 20:44; Admin Dose 5,000 UNIT; Start 07/31/16 at 15:00 Losartan Potassium (Cozaar) 25 mg DAILY PO Last administered on 08/02/16 09:10 ; Admin Dose 25 MG; Start 08/01/16 at 09:00 Metoprolol Succinate (Toprol Xl) 25 mg BID PO Last administered on 08/02/16 20 :41; Admin Dose 25 MG; Start 07/31/16 at 21:00 Diagnostic Test (Pha) (Accu-Chek) 1 ea 02 XX ; Start 08/01/16 at 02:00 Miscellaneous Information 1 ea NOTE XX ; Start 07/31/16 at 19:30 Glucose (Glutose) 15 gm Q15M PRN PO DECREASED GLUCOSE; Start 07/31/16 at 19:30 Glucose (Glutose) 22.5 gm Q15M PRN PO DECREASED GLUCOSE; Start 07/31/16 at 19: 30 Dextrose (D50w Syringe) 25 ml Q15M PRN IV DECREASED GLUCOSE; Start 07/31/16 at 19:30 Dextrose (D50w Syringe) 50 ml Q15M PRN IV DECREASED GLUCOSE; Start 07/31/16 at 19:30 Glucagon (Glucagen) 1 mg Q15M PRN IM DECREASED GLUCOSE; Start 07/31/16 at 19:30 Glucose (Glutose) 15 gm Q15M PRN BUCCAL DECREASED GLUCOSE; Start 07/31/16 at 19 :30 MATHEW AMADO Aug 03, 2016 13:00
[2016-08-03] MEDS ORDERED: FENTAnyl 50 MCG/ML VIAL ONE (13:18)
[2016-08-03] MEDS ORDERED: LIDOCAINE 1% (MDV) 20 ML INJ ONE ×2 (13:18→13:38)
[2016-08-03] MEDS ORDERED: HEPARIN 1000 UNITS/ML 10 ML INJ ONE (13:18)
[2016-08-03] MEDS ORDERED: IODIXANOL LOCM 100 ML BTL ONE ×2 (13:18→13:39)
[2016-08-03] MEDS ORDERED: MIDAZOLAM 1 MG/ML 2 ML INJ ONE (13:18)
[2016-08-03] MEDS ORDERED: VERAPAMIL 5 MG INJ ONE (13:18)
[2016-08-03] MEDS ORDERED: NITROGLYCERIN (IC) 100 MCG/ML INJ ONE (13:19)
[2016-08-03] MEDS ORDERED: SOD CHLORIDE 0.9% 500 ML ONE (13:22)
[2016-08-03] MEDS: DIGOXIN 0.125 MG TAB PO SCH (13:22)
[2016-08-03] MEDS ORDERED: SOD CHLORIDE 0.9% 1,000 ML IV SCH (14:36)
[2016-08-03] MEDS ORDERED: ACETAMINOPHEN 325 MG TAB PO PRN (15:00)
[2016-08-03] MEDS ORDERED: morphine 2 MG INJ IV PRN (15:00)
[2016-08-03] MEDS ORDERED: ONDANSETRON 4 MG INJ IV PRN (15:00)
[2016-08-03] MEDS ORDERED: AL HYDROX/MG HYDROX/SIMETH 30 ML CUP PO PRN (15:00)
--- NOTE | 2016-08-03 15:38 | CARRPT ---
DATE OF PROCEDURE: 08/03/2016 TYPE OF PROCEDURE: 1. Left heart catheterization. 2. Coronary angiography. 3. Left ventriculogram. ATTENDING PHYSICIAN: Mathew East MD REFERRING PHYSICIAN: Lainey Agarwal MD from the hospitalist service. TYPE OF ANESTHESIA: Conscious and local. INDICATION: Non-ST elevation myocardial infarction and cardiomyopathy with a new severely depressed left ventricular ejection fraction. BRIEF HISTORY AND HOSPITAL COURSE: Ms. Albrecht a 76-year-old female with history of hypertension , atrial fibrillation, dyslipidemia, cardiomyopathy, permanent pacemaker, initially presented with c omplaints of shortness of breath, generalized weakness. The patient subsequently ruled in for non-S T elevation myocardial infarction, underwent a 2D echo revealing a new severely depressed left ventr icular ejection fraction. Given these findings, the patient referred [facility] and [facility] to assess for possibility of significant obstructive coronary artery disease lending to her symptoms of positive troponins, shortness of breath, decreased EF. PROCEDURE: After informed consent was obtained, the patient was brought to the [facility] cardiac catheterization lab where her right radial area was prepped and draped in usual cyril rile fashion. Lidocaine 2% was infiltrated into the right radial artery in order to achieve adequat e local anesthesia. Using modified Seldinger technique, the radial artery was cannulated and a 6-Fr ench arterial sheath was placed. A 6-Romansh JR4 catheter was used to cannulate the right coronary a rterial ostium. With contrast injection, multiple views of the right coronary arterial system were obtained. JR4 was removed over a guidewire and a JL3.5 was used to cannulate the left main coronary ostium. With contrast injection, multiple views of the left coronary arterial system were obtained . JL3.5 was removed over a guidewire and a 6-Romansh pigtail was passed down the ascending aorta in an attempt to cross the LV. This proved unsuccessful. This was exchanged for a JR and it was still not fully successful. Then, we used a Glidewire unsuccessfully and finally we were able to cross i t with a straight Bentson after which the JR was exchanged for a pigtail and the pigtail was placed in the LV and left ventricular end-diastolic pressure was measured. Using a power injector, 20 mL o f contrast was injected performing a left ventriculogram and then the pigtail catheter was then pull ed across the aortic valve to assess for significant gradient, which there was. Subsequently, at th is time, the patient's catheters were removed and the patient's sheath was removed. TR band was bartolome lied. This completed the procedure. There were no noted complications. FINDINGS: 1. Coronary angiography: Right coronary artery has a very superior takeoff. It is a dominant vess el and has a 20% stenosis in its proximal portion and a 20% stenosis in its mid portion. In the PDA , there is an approximately 30% to 40% tubular stenosis. The left main proximally is a 5 mm vessel, has no significant stenoses. Circumflex proximally is a 5 mm vessel. In its midportion, it has a very focal approximately 50% stenosis. There is a mid branching obtuse marginal, is 3 mm, no signif icant focal stenoses. LAD proximally is a 3 mm vessel and in its midportion has a very focal appear ing 50% stenosis. The remainder of the LAD is free of significant focal stenoses and has good flow and goes around the apex. There is a mid branching diagonal 2 mm vessel, with no significant focal stenoses. 2. Left ventriculogram revealed a left ventricular end-diastolic pressure of 23 LV gram, a me an gradient of 38 across the aortic valve, consistent with moderate to severe aortic stenosis, and a depressed EF of approximately 30% with global hypokinesis and severe apical hypokinesis. TOTAL FLUOROSCOPY TIME: 19.4 minutes. TOTAL CONTRAST: 70 mL. IMPRESSION: 1. Moderate nonobstructive coronary artery disease involving a PDA lesion off the right coronary ar donya, mid circumflex and mid left anterior descending lesions. 2. Moderate to severely depressed left ventricular systolic function with wall motion abnormalities as above. concerning for possible Takotsubo cardiomyopathy, apical variant. 3. Moderate to severe aortic stenosis, likely severe low gradient aortic stenosis. 4. 1+ mitral regurgitation. RECOMMENDATIONS: In light of procedure and findings at this time would: 1. Maximize medical management. 2. Aggressive risk factor reduction. 3. Will discuss results with the family and we will consider patient for possible percutaneous aort ic valve replacement at a later date. Dictated By: MATHEW BACH/JARRELL Conf#: [id number] DID#: [id number] CC: LAINEY AGARWAL MD;*[facility]*
--- NOTE | 2016-08-03 15:55 | RADRPT ---
Vent Rate: 80 bpm RR Interval: 0 msec NC Interval: 0 msec QRS Duration: 194 msec QT Interval: 472 msec QTC Interval: 544 msec P-R-T Adams: 0 - -60 - 108 degrees Electronic ventricular pacemaker Electronically Signed By: George Gonzalez [id number]
--- NOTE | 2016-08-03 16:25 | PN ---
Date/Time of Note Date/Time of Note DATE: 08/03/16 TIME: 16:22 Assessment/Plan VTE Prophylaxis VTE Prophylaxis Intervention: heparin Lines/Catheters IV Catheter Type (from Nrs): Peripheral IV Urinary Cath still in place: No Assessment/Plan Assessment/Plan 1) Acute exacerbation of CHF, Acute on Chronic, systolic and diastolic, LVEF 25 % on 07/30/2016, stable 2) Dilated cardiomyopathy, nonischemic, follow up with cardiology 3) Mildly elevated troponin, nonobstructive coronary artery disease on [facility] on 4) Hypothyroidism, increase synthroid due to high TSH 5) s/p Pacemaker Status 6) Atrial fibrillation, pacing rhythm, not on anticoagulant 7) Normocytic anemia, stable 8) Thrombocytopenia, stable, follow up with PLT Subjective 24 Hr Interval Summary Free Text/Dictation no chest pain or shortness of breath Exam/Review of Systems Vital Signs Vitals Vital Signs Date Time Temp Pulse Resp B/P Pulse Ox O2 Delivery O2 Flow Rate FiO2 08/03/16 16:01 80 22 112/58 96 Room Air 08/03/16 15:01 98.2 07/31/16 20:00 2.0 Intake and Output 08/02/16 08/02/16 08/03/16 15:00 23:00 07:00 Intake Total 800 ml 300 ml Output Total 50 ml 500 ml Balance 750 ml -200 ml Exam Constitutional: alert, oriented, well developed Psych: nl mood/affect, no complaints Head: atraumatic, normocephalic Eyes: EOMI, PERRL, nl conjunctiva, nl lids ENMT: nl external ears & nose, nl lips & teeth, nl nasal mucosa & septum Neck: non-tender, supple Respiratory: clear to auscultation, normal air movement, No congested cough, No crackles/rales, No diminished breath sounds, No intercostal retraction, No labored breathing, No other, No respirations, No tactile fremitus, No wheezing Cardiovascular: nl pulses, regular rate and rhythm, No S3, No S4, No bruits, No diastolic murmur, No edema, No gallop, No irregular rhythm, No jugular venous distention (JVD), No murmurs/extra sounds, No other, No rub, No systolic murmur Gastrointestinal: nl liver, spleen, non-tender, soft, No ascites, No bowel sounds, No distended, No firm, No hepatomegaly, No mass , No other, No rebound or guarding, No splenomegaly, No surgical scars, No tender Musculoskeletal: nl extremities to inspection Extremities: normal pulses, No calf tenderness, No clubbing, No cyanosis, No edema, No other, No palpable cord, No pitting pedal edema, No tenderness Neurological: ELECTROLOGIST II-XII intact, nl mental status, nl speech, nl strength Skin: nl turgor Lymph: nl lymph nodes Results Result Diagram: 08/03/1661908/03/16 0620 Results 24 hrs Laboratory Tests Test 08/02/16 18:12 08/02/16 20:38 08/03/16 06:20 08/03/16 09:48 Bedside Glucose 169 148 93 White Blood Count 5.3 Red Blood Count 3.57 L Hemoglobin 9.3 L Hematocrit 29.6 L Mean Corpuscular Volume 82.9 Mean Corpuscular Hemoglobin 26.1 L Mean Corpuscular Hemoglobin Concent 31.4 L Red Cell Distribution Width 23.2 H Platelet Count 89 L Mean Platelet Volume Neutrophils % 78.4 H Lymphocytes % 10.5 L Monocytes % 10.1 Eosinophils % 0.2 Basophils % 0.4 Nucleated Red Blood Cells % 0.0 Neutrophils # 4.1 Lymphocytes # 0.6 L Monocytes # 0.5 Eosinophils # 0.0 Basophils # 0.0 Nucleated Red Blood Cells # 0.0 Prothrombin Time 15.5 H Prothrombin Time Ratio 1.2 INR International Normalized Ratio 1.22 Sodium Level 135 Potassium Level 3.8 Chloride Level 102 Carbon Dioxide Level 27 Anion Gap 10 Blood Urea Nitrogen 23 H Creatinine 0.92 Glucose Level 88 Calcium Level 8.5 Test 08/03/16 12:02 Bedside Glucose 94 Medications Medications Current Medications Lorazepam (Ativan) 0.25 mg Q8H PRN PO ANXIETY Last administered on 07/31/16 21 :40; Admin Dose 0.25 MG; Start 07/30/16 at 20:30 Nitroglycerin (Nitroglycerin (Sl Tab) 0.4 Mg) 1 tab Q5M PRN SL CHEST PAIN; Start 07/30/16 at 20:30 Acetaminophen (Tylenol Tab) 650 mg Q6H PRN PO PAIN LEVEL 1-3 OR FEVER Last administered on 08/02/16 23:22; Admin Dose 650 MG; Start 07/30/16 at 20:30 Acetaminophen/ Hydrocodone Bitart ([place] (5/325)) 1 tab Q6H PRN PO PAIN LEVEL 4 -6; Start 07/30/16 at 20:30 Morphine Sulfate (morphine) 2 mg Q4H PRN IV PAIN LEVEL 7-10; Start 07/30/16 at 20:30 Amiodarone HCl (Cordarone) 200 mg DAILY PO Last administered on 08/03/16 09:49 ; Admin Dose 200 MG; Start 07/31/16 at 09:00 Digoxin (Digoxin) 0.125 mg DAILY@13 PO Last administered on 08/03/16 13:22; Admin Dose 0.125 MG; Start 07/31/16 at 13:00 Ferrous Sulfate (Ferrous Sulfate (Ec)) 325 mg BID PO Last administered on 09:54; Admin Dose 325 MG; Start 07/30/16 at 21:00 Potassium Chloride (Micro-K) 8 meq BID PO Last administered on 08/03/16 09:50 ; Admin Dose 8 MEQ; Start 07/30/16 at 21:00 Atorvastatin Calcium (Lipitor) 40 mg DAILY@21 PO Last administered on 20:40; Admin Dose 40 MG; Start 07/31/16 at 21:00 Heparin Sodium (Porcine) (Heparin (5000 Units/0.5 ml)) 5,000 unit BID SC Last administered on 08/02/16 20:44; Admin Dose 5,000 UNIT; Start 07/31/16 at 15:00 Losartan Potassium (Cozaar) 25 mg DAILY PO Last administered on 08/02/16 09:10 ; Admin Dose 25 MG; Start 08/01/16 at 09:00 Metoprolol Succinate (Toprol Xl) 25 mg BID PO Last administered on 08/02/16 20 :41; Admin Dose 25 MG; Start 07/31/16 at 21:00 Diagnostic Test (Pha) (Accu-Chek) 1 ea 02 XX ; Start 08/01/16 at 02:00 Miscellaneous Information 1 ea NOTE XX ; Start 07/31/16 at 19:30 Glucose (Glutose) 15 gm Q15M PRN PO DECREASED GLUCOSE; Start 07/31/16 at 19:30 Glucose (Glutose) 22.5 gm Q15M PRN PO DECREASED GLUCOSE; Start 07/31/16 at 19: 30 Dextrose (D50w Syringe) 25 ml Q15M PRN IV DECREASED GLUCOSE; Start 07/31/16 at 19:30 Dextrose (D50w Syringe) 50 ml Q15M PRN IV DECREASED GLUCOSE; Start 07/31/16 at 19:30 Glucagon (Glucagen) 1 mg Q15M PRN IM DECREASED GLUCOSE; Start 07/31/16 at 19:30 Glucose (Glutose) 15 gm Q15M PRN BUCCAL DECREASED GLUCOSE; Start 07/31/16 at 19 :30 Miscellaneous Information (* Miscellaneous Pharmacy Order) HOLD all METFORMIN ... ONCE XX ; Start 08/03/16 at 15:00; Stop 08/05/16 at 14:59 Acetaminophen (Tylenol Tab) 650 mg Q4H PRN PO NON-CARDIAC PAIN LEVEL (1-3); Start 08/03/16 at 15:00 Morphine Sulfate (morphine) 1 mg Q2H PRN IV FOR NON CARDIAC PAIN (4-10); Start 08/03/16 at 15:00 Al Hydrox/Mg Hydrox/Simethicone (Mag-Al Plus) 30 ml Q4H PRN PO GASTROINTESTINAL UPSET; Start 08/03/16 at 15:00 Ondansetron HCl 4 mg 4 mg Q4H PRN IV NAUSEA AND/OR VOMITING; Start 08/03/16 at 15:00 Sodium Chloride (NS) 1,000 ml @ 75 mls/hr [id number] IV ; Start 08/03/16 at 14:36 ; Stop 08/03/16 at 19:35 BRITTANY OLIVEIRA MD Aug 03, 2016 16:24
[2016-08-03] MEDS: ATORVASTATIN 40 MG TAB PO SCH (20:54)
[2016-08-04] VITALS (8 sets, daily range): BP systolic 91–103; BP diastolic 47–57; PULSE 80–97; RESP 17–19
[2016-08-04] MEDS: ACCU-CHEK XX SCH ×3 (02:00→11:58)
[2016-08-04] MEDS: FUROSEMIDE 20 MG INJ IV SCH (06:17)
[2016-08-04] MEDS: LEVOTHYROXINE 100 MCG TAB PO SCH (06:18)
[2016-08-04 07:09] LABS: ADD SCAN DIFF NO
[2016-08-04 07:14] LABS: ABNORMAL IP MESSAGE 1; BASOPHILS % 0.1 % (0.0-2.0); HEMATOCRIT 30.2 % (37.0-47.0); HEMOGLOBIN 9.8 g/dl (12.0-16.0); LYMPHOCYTES # 0.5 10^3/ul (0.8-2.9); LYMPHOCYTES % 6.2 % (15.0-51.0); MEAN CORPUSCULAR HEMOGLOBIN 26.9 pg (29.0-33.0); MEAN CORPUSCULAR HGB CONC 32.5 g/dl (32.0-37.0); MONOCYTE # 0.7 10^3/ul (0.3-0.9); MONOCYTES % 8.1 % (0.0-11.0); NEUTROPHILS % 85.1 % (39.0-77.0); RED BLOOD COUNT 3.64 10^6/ul (4.20-5.40); RED CELL DISTRIBUTION WIDTH 22.5 % (11.5-14.5); WHITE BLOOD COUNT 8.2 10^3/ul (4.8-10.8)
[2016-08-04 07:17] LABS: PLATELET COUNT 90 10^3/UL (140-415)
[2016-08-04 07:31] LABS: CREATININE 0.97 mg/dl (0.44-1.00)
[2016-08-04 07:32] LABS: CALCIUM 8.5 mg/dl (8.4-10.2)
[2016-08-04] MEDS: INSULIN ASPART [NOVOLOG] 3 ML PEN SC SCH ×2 (08:00→12:34)
[2016-08-04] MEDS: LOSARTAN 25 MG TAB PO SCH (09:00)
[2016-08-04] MEDS: METOPROLOL (XL) 25 MG TAB PO SCH (09:00)
[2016-08-04] MEDS: FERROUS SULFATE (EC) 325 MG TAB PO SCH (09:23)
[2016-08-04] MEDS: POTASSIUM CHLORIDE (SR) 8 MEQ CAP PO SCH (09:23)
[2016-08-04] MEDS: AMIODARONE 200 MG TAB PO SCH (09:24)
[2016-08-04] MEDS: HEPARIN 5,000 UNIT/0.5 ML SYG SC SCH (09:26)
[2016-08-04] MEDS ORDERED: SYN1 PO (13:21)
[2016-08-04] MEDS: DIGOXIN 0.125 MG TAB PO SCH (13:28)
--- NOTE | 2016-08-04 13:34 | DS ---
Date/Time of Note Date/Time of Note DATE: 08/04/16 TIME: 13:22 Discharge Summary Admission/Discharge Info Admit Date/Time Jul 30, 2016 at 18:04 Discharge Date/Time Final Diagnosis 1) CHF, Acute on Chronic, systolic and diastolic, LVEF 25% on 07/30/2016, stable , follow up with cardiology 2) Dilated cardiomyopathy, nonischemic, stable 3) Mildly elevated troponin, nonobstructive coronary artery disease on [facility] on 4) Hypothyroidism, increase synthroid due to high TSH 5) s/p Pacemaker Status 6) Atrial fibrillation, pacing rhythm, on eliquis 7) Normocytic anemia, stable 8) Thrombocytopenia, stable, follow up with PCP Patient Condition: Stable Hx of Present Illness 76-year-old female, accompanied by her daughter who relays the history, who presents with multiple complaints. She was hospitalized about a month ago, and since then has had off and on fatigue. She has a history of pulmonary hypertension and CHF and has a Ventricular Pacemaker in place. The past 2 days, she has had a couple of temperature, 99.1 and 101. She has the chills, but no fever, cough, sore throat or painful urination. No back pain or hematuria. No blood in the stool or black colored stool. No headache or vision change. No rash or itch. Legs are always swollen, and they are as usual today. No spontaneous vomiting, but she made herself throw up yesterday in order to relieve what she perceived to be stomach gas. She denies any chest pain, shortness of breath or dyspnea on exertion. Over the last 1 week she is describing chills but no fevers. She was treated 1-1/2 weeks ago for urinary tract infection. Hospital Course CXR with pulmonary congestion. clinically no evidence of infection. BUN/Cr 19/ 1.07, troponin was up to 0.245. For the mildly elevated troponin it is likely from decompensated CHF(LVEF 25% on 07/29/2016). To r/o ischemia, patient had coronary angiography on 08/03/2016 that only revealed nonobstructive coronary artery disease. Patient is clinically stable, no shortness of breath, no chest pain and afebrile. She will be discharged and follow up with cardiology/PCP outpatient. Home Meds Active Scripts Levothyroxine Sodium (Levothroid) 100 Mcg Tablet, 100 MCG PO BEFORE BREAKFAST for 30 Days, TAB Prov:BRITTANY OLIVEIRA MD 08/04/16 Furosemide* (Furosemide*) 40 Mg Tablet, 40 MG PO BID for 30 Days, TAB Prov:MARTY HOLLAND NP 06/17/16 Reported Medications Ferrous Sulfate* (Ferrous Sulfate*) 325 Mg Tabec, 325 MG PO BID, TAB 07/30/16 Rosuvastatin Calcium* (Crestor*) 10 Mg Tablet, 10 MG PO QHS, #30 TAB 06/15/16 Potassium Chloride* (Potassium Chloride*) 8 Meq Capsule.er, 8 MEQ PO BID, CAP 06/15/16 Metoprolol Tartrate* (Lopressor*) 50 Mg Tab, 50 MG PO BID, #60 TAB 06/15/16 Metformin* (Glucophage*) 500 Mg Tab, 500 MG PO WITH BREAKFAST DINNE, #30 TAB 06/15/16 Losartan Potassium* (Losartan Potassium*) 50 Mg Tablet, 50 MG PO DAILY, TAB 06/15/16 Amiodarone Hcl* (Amiodarone Hcl*) 200 Mg Tablet, 200 MG PO DAILY, #30 TAB 06/15/16 Digoxin* (Lanoxin*) 0.125 Mg Tablet, 0.125 MG PO DAILY, TAB 06/15/16 Apixaban* (Eliquis*) 2.5 Mg Tablet, 2.5 MG PO BID, TAB 06/15/16 Follow-up Plan PCP and cardiology in one week Pending Labs Laboratory Tests Test 08/03/16 17:42 08/03/16 18:23 08/03/16 21:04 08/04/16 06:30 Bedside Glucose 65mg/dL (70-220) 83mg/dL (70-220) 174mg/dL (70-220) White Blood Count 8.210^3/ul (4.8-10.8) Red Blood Count 3.6410^6/ul (4.20-5.40) Hemoglobin 9.8g/dl (12.0-16.0) Hematocrit 30.2% (37.0-47.0) Mean Corpuscular Volume 83.0fl (82.0-101.0) Mean Corpuscular Hemoglobin 26.9pg (29.0-33.0) Mean Corpuscular Hemoglobin Concent 32.5g/dl (32.0-37.0) Red Cell Distribution Width 22.5% (11.5-14.5) Platelet Count 9010^3/UL (140-415) Mean Platelet Volume fl (7.4-10.4) Neutrophils % 85.1% (39.0-77.0) Lymphocytes % 6.2% (15.0-51.0) Monocytes % 8.1% (0.0-11.0) Eosinophils % 0.0% (0.0-7.0) Basophils % 0.1% (0.0-2.0) Nucleated Red Blood Cells % 0.0/100WBC (0.0-0.0) Neutrophils # 7.010^3/ul (1.6-7.5) Lymphocytes # 0.510^3/ul (0.8-2.9) Monocytes # 0.710^3/ul (0.3-0.9) Eosinophils # 0.010^3/ul (0.0-0.5) Basophils # 0.010^3/ul (0.0-0.1) Nucleated Red Blood Cells # 0.010^3/ul (0.0-0.0) Sodium Level 135mmol/L (135-144) Potassium Level 4.0mmol/L (3.5-5.1) Chloride Level 101mmol/L (97-110) Carbon Dioxide Level 27mmol/L (21-31) Anion Gap 11 (8-16) Blood Urea Nitrogen 22mg/dl (7-20) Creatinine 0.97mg/dl (0.44-1.00) Glucose Level 150mg/dl (70-220) Calcium Level 8.5mg/dl (8.4-10.2) Test 08/04/16 07:52 08/04/16 11:57 Bedside Glucose 140mg/dL (70-220) 172mg/dL (70-220) BRITTANY OLIVEIRA MD Aug 04, 2016 13:34
--- NOTE | 2016-08-04 14:10 | CONS ---
Date/Time of Note Date/Time of Note DATE: 08/04/16 TIME: 14:07 Assessment/Plan Assessment/Plan Chief Complaint/Hosp Course IMPRESSION: 1. Positive troponin, assess significance-now s/p C with no isg obstructive disease. ? Takotsubo 2. Congestive heart failure, systolic, acute on chronic, by most recent echo. EF newly depressed at 25% ? ischemia event versus alternative etiology takotsubo /viral 3. History of permanent pacemaker. 4. History paroxysmal atrial fibrillation, not currently on systemic anticoagulation-due to low platelets 5. Cardiomyopathy with decreased left ventricular ejection fraction. 6. Dyslipidemia. 7. Hypertension, reasonable control. 8. Hypothyroidism. 9. Fevers, chills, assess for source of infection. 10. Thrombocytopenia Recc: -Tele -serial ecg's -Continue cozaar/Toprol XL -Continue digoxin -Continue lasix diuresis and follow volume status closely -Continue statin -Continue amiodarone -F/U Bld cx's Problems: Consultation Date/Type/Reason Admit Date/Time Jul 30, 2016 at 18:04 Initial Consult Date 07/31/2016 Type of Consultation: Cardiology Reason for Consultation Nstemi/cmy Referring Provider: RICO GREY MD Exam/Review of Systems Vital Signs Vitals Vital Signs Date Time Temp Pulse Resp B/P Pulse Ox O2 Delivery O2 Flow Rate FiO2 08/04/16 12:10 97.8 83 18 91/47 93 08/03/16 17:00 Room Air 07/31/16 20:00 2.0 Intake and Output 08/03/16 08/03/16 08/04/16 15:00 23:00 07:00 Intake Total 400 ml Balance 400 ml Exam Review of Systems: CONSTITUTIONAL: chills. PULMONARY: No sob CARDIOVASCULAR: No chest pain/palpitations GASTROINTESTINAL: No nausea/vomiting. GENITOURINARY: No hematuria/dysuria. MUSCULOSKELETAL: No myagias/arthalgias. PSYCHIATRIC: The patient denies depression. NEUROLOGIC: No weakness Constitutional: alert, oriented Psych: no complaints ENMT: mucosa pink and moist Neck: jvd (9 cm water), supple Respiratory: clear to auscultation Cardiovascular: regular rate and rhythm Gastrointestinal: soft Musculoskeletal: muscle tone (normal) Extremities: edema (none) Neurological: other (No focxal deficits) Results Result Diagram: 08/04/16 0630 08/04/16 0630 Results 24 hrs Laboratory Tests Test 08/03/16 17:42 08/03/16 18:23 08/03/16 21:04 08/04/16 06:30 Bedside Glucose 65 L 83 174 White Blood Count 8.2 # Red Blood Count 3.64 L Hemoglobin 9.8 L Hematocrit 30.2 L Mean Corpuscular Volume 83.0 Mean Corpuscular Hemoglobin 26.9 L Mean Corpuscular Hemoglobin Concent 32.5 Red Cell Distribution Width 22.5 H Platelet Count 90 L Mean Platelet Volume Neutrophils % 85.1 H Lymphocytes % 6.2 L Monocytes % 8.1 Eosinophils % 0.0 Basophils % 0.1 Nucleated Red Blood Cells % 0.0 Neutrophils # 7.0 Lymphocytes # 0.5 L Monocytes # 0.7 Eosinophils # 0.0 Basophils # 0.0 Nucleated Red Blood Cells # 0.0 Sodium Level 135 Potassium Level 4.0 Chloride Level 101 Carbon Dioxide Level 27 Anion Gap 11 Blood Urea Nitrogen 22 H Creatinine 0.97 Glucose Level 150 Calcium Level 8.5 Test 08/04/16 07:52 08/04/16 11:57 Bedside Glucose 140 172 Medications Medications Current Medications Lorazepam (Ativan) 0.25 mg Q8H PRN PO ANXIETY Last administered on 07/31/16 21 :40; Admin Dose 0.25 MG; Start 07/30/16 at 20:30 Nitroglycerin (Nitroglycerin (Sl Tab) 0.4 Mg) 1 tab Q5M PRN SL CHEST PAIN; Start 07/30/16 at 20:30 Acetaminophen (Tylenol Tab) 650 mg Q6H PRN PO PAIN LEVEL 1-3 OR FEVER Last administered on 08/02/16 23:22; Admin Dose 650 MG; Start 07/30/16 at 20:30 Acetaminophen/ Hydrocodone Bitart (Osgood (5/325)) 1 tab Q6H PRN PO PAIN LEVEL 4 -6; Start 07/30/16 at 20:30 Morphine Sulfate (morphine) 2 mg Q4H PRN IV PAIN LEVEL 7-10; Start 07/30/16 at 20:30 Amiodarone HCl (Cordarone) 200 mg DAILY PO Last administered on 08/04/16 09:24 ; Admin Dose 200 MG; Start 07/31/16 at 09:00 Digoxin (Digoxin) 0.125 mg DAILY@13 PO Last administered on 08/04/16 13:28; Admin Dose 0.125 MG; Start 07/31/16 at 13:00 Ferrous Sulfate (Ferrous Sulfate (Ec)) 325 mg BID PO Last administered on 09:23; Admin Dose 325 MG; Start 07/30/16 at 21:00 Potassium Chloride (Micro-K) 8 meq BID PO Last administered on 08/04/16 09:23 ; Admin Dose 8 MEQ; Start 07/30/16 at 21:00 Atorvastatin Calcium (Lipitor) 40 mg DAILY@21 PO Last administered on 20:54; Admin Dose 40 MG; Start 07/31/16 at 21:00 Heparin Sodium (Porcine) (Heparin (5000 Units/0.5 ml)) 5,000 unit BID SC Last administered on 08/04/16 09:26; Admin Dose 5,000 UNIT; Start 07/31/16 at 15:00 Losartan Potassium (Cozaar) 25 mg DAILY PO Last administered on 08/02/16 09:10 ; Admin Dose 25 MG; Start 08/01/16 at 09:00 Metoprolol Succinate (Toprol Xl) 25 mg BID PO Last administered on 08/03/16 20 :58; Admin Dose 25 MG; Start 07/31/16 at 21:00 Diagnostic Test (Pha) (Accu-Chek) 1 ea 02 XX ; Start 08/01/16 at 02:00 Miscellaneous Information 1 ea NOTE XX ; Start 07/31/16 at 19:30 Glucose (Glutose) 15 gm Q15M PRN PO DECREASED GLUCOSE; Start 07/31/16 at 19:30 Glucose (Glutose) 22.5 gm Q15M PRN PO DECREASED GLUCOSE; Start 07/31/16 at 19: 30 Dextrose (D50w Syringe) 25 ml Q15M PRN IV DECREASED GLUCOSE; Start 07/31/16 at 19:30 Dextrose (D50w Syringe) 50 ml Q15M PRN IV DECREASED GLUCOSE; Start 07/31/16 at 19:30 Glucagon (Glucagen) 1 mg Q15M PRN IM DECREASED GLUCOSE; Start 07/31/16 at 19:30 Glucose (Glutose) 15 gm Q15M PRN BUCCAL DECREASED GLUCOSE; Start 07/31/16 at 19 :30 Miscellaneous Information (* Miscellaneous Pharmacy Order) HOLD all METFORMIN ... ONCE XX ; Start 08/03/16 at 15:00; Stop 08/05/16 at 14:59 Acetaminophen (Tylenol Tab) 650 mg Q4H PRN PO NON-CARDIAC PAIN LEVEL (1-3); Start 08/03/16 at 15:00 Morphine Sulfate (morphine) 1 mg Q2H PRN IV FOR NON CARDIAC PAIN (4-10); Start 08/03/16 at 15:00 Al Hydrox/Mg Hydrox/Simethicone (Mag-Al Plus) 30 ml Q4H PRN PO GASTROINTESTINAL UPSET; Start 08/03/16 at 15:00 Ondansetron HCl (Zofran Inj) 4 mg Q4H PRN IV NAUSEA AND/OR VOMITING; Start at 15:00 MATHEW AMADO Aug 04, 2016 14:10
[2016-08-05] MEDS ORDERED: metFORMIN 500 MG TAB PO SCH (18:05)
== END 2016-08-04 15:17 | disposition left against medical advice (07) | DRG 287 ==
LOC: FTE 14:44 → MS4 18:04
PROVIDERS: ADMIT Family Medicine; ATTEND Family Medicine
PROC: B215YZZ Fluoroscopy of Left Heart using Other Contrast (ICD-10-PCS; 2016-08-03)
PROC: 4A023N7 Measurement of Cardiac Sampling and Pressure, Left Heart, Percutaneous Approach (ICD-10-PCS; principal; 2016-08-03 13:00)
PROC: B211YZZ Fluoroscopy of Multiple Coronary Arteries using Other Contrast (ICD-10-PCS; 2016-08-03 13:00)
DX: I11.0 Hypertensive heart disease with heart failure (principal); I42.0 Dilated cardiomyopathy; D69.6 Thrombocytopenia, unspecified; I27.2 Other secondary pulmonary hypertension; I08.0 Rheumatic disorders of both mitral and aortic valves; I50.43 Acute on chronic combined systolic (congestive) and diastolic (congestive) heart failure; E03.9 Hypothyroidism, unspecified; Z95.0 Presence of cardiac pacemaker; E78.5 Hyperlipidemia, unspecified; E11.9 Type 2 diabetes mellitus without complications; I48.0 Paroxysmal atrial fibrillation; D64.9 Anemia, unspecified; I25.10 Atherosclerotic heart disease of native coronary artery without angina pectoris
CPT/HCPCS: 36415; 71010; 80048; 80053; 80061; 80162; 81001; 81003; 82550; 82553; 82962; 83690; 83735; 83880; 84436; 84443; 84479; 84484; 85025; 85610; 85730; 87040; 87400; 93005; 93306; 93458; 93970; 96374; J1940; C1769; C1887; J1644; J1815; J2250; J3010; J7030; J7040; Q9967

== ENCOUNTER 2016-08-07 08:35 | Inpatient (IN) | payer MEDICARE, OTHER ==
[~2016-08-07] VITALS: Ht 162.6 cm; Wt 100.0 kg
[~2016-08-07 08:35] MED LIST changes: +FER325 PO; -LEVO88TA3 PO; +SYN1 PO
[2016-08-07] MEDS ORDERED: CEFEPIME 2GM/50 ML (PMX) 50 ML IVPB STA (08:43)
[2016-08-07] MEDS ORDERED: ONDANSETRON 4 MG INJ IV STA (08:43)
[2016-08-07] MEDS ORDERED: morphine 4 MG/ML VIAL IV STA (08:43)
--- NOTE | 2016-08-07 09:23 | RADRPT ---
PROCEDURE: Chest x-ray CLINICAL INDICATION: Sepsis TECHNIQUE: Chest single view COMPARISON: 08/03/2016 FINDINGS: As before there is left chest AICD. Stable cardiomegaly and an sclerotic aortic calcification is se en. As before there is increased bilateral interstitial markings which may represent interstitial e paz versus interstitial pneumonia. Slightly progressed from prior examination. No confluent conso lidation seen. Costophrenic angles sharp. Bones are osteopenic. IMPRESSION: 1. Stable cardiomegaly and atherosclerotic aortic calcification. 2. Worsening interstitial prominence may represent edema versus interstitial pneumonia. 3. AICD RPTAT: HH .Don Talley MD, MD Date Time Electronically viewed and signed by .Don Talley MD, on 08/07/2016 09:23 .W/
[2016-08-07 09:28] LABS: ADD SCAN DIFF NO
[2016-08-07 09:33] LABS: ABNORMAL IP MESSAGE 1; BASOPHILS % 0.1 % (0.0-2.0); EOSINOPHILS # 0.1 10^3/ul (0.0-0.5); EOSINOPHILS % 0.7 % (0.0-7.0); HEMATOCRIT 32.6 % (37.0-47.0); HEMOGLOBIN 10.4 g/dl (12.0-16.0); LYMPHOCYTES # 0.6 10^3/ul (0.8-2.9); LYMPHOCYTES % 8.6 % (15.0-51.0); MEAN CORPUSCULAR HEMOGLOBIN 26.9 pg (29.0-33.0); MEAN CORPUSCULAR HGB CONC 31.9 g/dl (32.0-37.0); MEAN CORPUSCULAR VOLUME 84.2 fl (82.0-101.0); MONOCYTE # 0.7 10^3/ul (0.3-0.9); MONOCYTES % 9.4 % (0.0-11.0); NEUTROPHIL # 5.7 10^3/ul (1.6-7.5); NEUTROPHILS % 80.6 % (39.0-77.0); PLATELET COUNT 87 10^3/UL (140-415); RED BLOOD COUNT 3.87 10^6/ul (4.20-5.40); RED CELL DISTRIBUTION WIDTH 22.9 % (11.5-14.5); WHITE BLOOD COUNT 7.1 10^3/ul (4.8-10.8)
[2016-08-07 09:43] LABS: POTASSIUM 4.2 mmol/L (3.5-5.1)
[2016-08-07 09:45] LABS: ALBUMIN/GLOBULIN RATIO 0.69; CREATININE 1.36 mg/dl (0.44-1.00); TOTAL PROTEIN 7.3 g/dl (6.1-8.1)
[2016-08-07 09:46] LABS: CALCIUM 8.9 mg/dl (8.4-10.2)
[2016-08-07 09:49] LABS: INR 1.56; PROTIME 18.8 Sec (12.2-14.2); PT RATIO 1.5
[2016-08-07 09:50] LABS: PARTIAL THROMBOPLASTIN TIME 44.3 Sec (25.0-35.0)
[2016-08-07 10:03] LABS: TROPONIN-I 0.622 ng/ml (0.00-0.12)
--- NOTE | 2016-08-07 10:11 | RADRPT ---
PROCEDURE: CT Abdomen and Pelvis without contrast CLINICAL INDICATION: Possible sepsis TECHNIQUE: Transaxial images were obtained through the abdomen and pelvis on a multi-slice scanner without the intravenous contrast administration. No oral contrast had previously been given. Sagit elia and coronal re-formations were subsequently reconstructed. One or more of the following dose reduction techniques were used: - Automated exposure control. - Adjustment of the mA and/or kV according to patient size. - Use of iterative reconstruction technique. Radiation dose: CTDIvol = 21.63 mGy; DLP = 1304.50 mGy-cm. COMPARISON: Comparison to 04/20/2014 FINDINGS: Lung bases: Fairly extensive ground-glass infiltrates are again seen within the lung bases bilateral ly along with small gravitating bilateral pleural fluid accumulations, unchanged. The heart remains enlarged with the pacemaker artifact and coronary artery disease. Liver: The liver is mildly enlarged and mildly nodular in contour suspicious for cirrhotic change. No focal lesion is evident. Gallbladder: There is cholelithiasis again noted. The gallbladder wall is not thickened. Bile ducts: The intra and extrahepatic bile ducts are normal in caliber. Pancreas: Appears normal with no mass or inflammation evident. Spleen: The spleen is not grossly enlarged. There is a vague area of decreased attenuation within t he anterior superior spleen which was not clearly evident previously. Adrenals: Normal with no mass identified. Kidneys, ureters and bladder: The kidneys are slightly lobular in contour but no discrete mass is id entified. There is perinephric stranding. There is no hydronephrosis. The ureters are normal in ca liber and no ureteroliths are identified. The bladder is quite distended with a the right contour. Reproductive organs: The uterus deviates slightly to the left of midline. No adnexal mass is eviden t. Phleboliths are seen in the pelvis. Stomach and bowel: The stomach appears unremarkable. There is no evidence of bowel obstruction or i nflammation. Appendix: A normal vermiform appendix is evident. Peritoneum: There is a small amount of free intraperitoneal fluid seen primarily within the cul-de-s ac and to a lesser extent within the pericolic gutters. No free air is evident. Aorta: There is atherosclerotic vascular calcification but no abdominal aortic aneurysm is evident. IVC: Unremarkable. Lymph nodes: No pathologically enlarged nodes are identified. Osseous structures: There is grade 1 anterolisthesis of L4 and L5 associated degenerative facet matias ges. Diffuse degenerative endplate and facet changes are seen to the spine and there is anterior os teophytic bridging within the inferior thoracic spine. Soft tissues: There is considerable stranding within the subcutaneous fat of the anterior pelvis an d filling regions suspicious for edema. IMPRESSION: 1. Persistent mild hepatomegaly with cirrhotic change but no focal lesion. 2. Increased gross splenomegaly with an area of decreased attenuation seen within the anterior supe rior spleen possibly an infarct. 3. Interval development of a small amount of free intraperitoneal fluid with no free air evident. 4. No evidence of bowel obstruction or inflammation with a normal vermiform appendix. 5. The bladder remains quite distended with urine but the wall is no longer thickened and there is no longer evidence of urinary outflow obstruction. Perinephric stranding is noted. 6. Diffuse ground-glass infiltrates are again seen within the lung bases and there are again small bilateral gravitating pleural fluid accumulations. 7. The heart remains enlarged. There is again coronary artery disease. Pacemaker artifact is agai n evident. 8. Degenerative spine changes are again noted with grade 1 anterolisthesis of L4 on L5 associated w ith degenerative facet changes. Physician Jojo Date Time Electronically viewed and signed by Physician Jojo on 08/07/2016 10:10 /
[2016-08-07] MEDS ORDERED: ASPIRIN 81 MG TAB PO ONE (10:30)
[2016-08-07] MEDS ORDERED: ACETAMINOPHEN 325 MG TAB PO PRN ×2 (11:00→14:30)
[2016-08-07] MEDS ORDERED: ONDANSETRON 4 MG INJ IV PRN ×2 (11:00→14:30)
[2016-08-07 11:37] LABS: ADD UMIC NO; URINE BILIRUBIN (Dip) NEGATIVE (NEGATIVE); URINE BLOOD (Dip) NEGATIVE (NEGATIVE); URINE COLOR YELLOW (YELLOW); URINE GLUCOSE (Dip) NEGATIVE (NEGATIVE); URINE KETONES (Dip) NEGATIVE (NEGATIVE); URINE LEUKOCYTE ESTERASE (Dip) NEGATIVE (NEGATIVE); URINE NITRITE (Dip) NEGATIVE (NEGATIVE); URINE TOTAL PROTEIN (Dip) NEGATIVE (NEGATIVE); URINE UROBILINOGEN (Dip) 0.2 E.U./dL (0.1-1.0)
--- NOTE | 2016-08-07 13:25 | ERA ---
ER Documentation Chief Complaint Date/Time DATE: 08/07/16 TIME: 13:21 Chief Complaint from home c/o back pain HPI Patient is a 76-year-old female with CHF, hypertension, diabetes, and atrial fibrillation who presents with right-sided back pain. She is brought in by ambulance. She had right-sided back pain for the past 2 days. She came from home. She was recently admitted just a few days ago and had a left-sided heart catheterization done on August 03 but was done through the right wrist. She has bilateral lower extremity swelling. She left AGAINST MEDICAL ADVICE even though there were gram-positive cocci in the blood. She has chills. The daughter says "I thought she might have an infection". She has had no fevers. Upon review of old medical records this is the patient's eighth visit to the ER since 2012. Her primary doctor is Dr. Arauz and her corrosion engineer is Dr. East. ROS All systems reviewed and are negative except as per history of present illness. Medications Home Meds Active Scripts Levothyroxine Sodium (Levothroid) 100 Mcg Tablet, 100 MCG PO BEFORE BREAKFAST for 30 Days, TAB Prov:BRITTANY OLIVEIRA MD 08/04/16 Furosemide* (Furosemide*) 40 Mg Tablet, 40 MG PO BID for 30 Days, TAB Prov:MARTY HOLLAND NP 06/17/16 Reported Medications Ferrous Sulfate* (Ferrous Sulfate*) 325 Mg Tabec, 325 MG PO BID, TAB 07/30/16 Rosuvastatin Calcium* (Crestor*) 10 Mg Tablet, 10 MG PO QHS, #30 TAB 06/15/16 Potassium Chloride* (Potassium Chloride*) 8 Meq Capsule.er, 8 MEQ PO BID, CAP 06/15/16 Metoprolol Tartrate* (Lopressor*) 50 Mg Tab, 50 MG PO BID, #60 TAB 06/15/16 Metformin* (Glucophage*) 500 Mg Tab, 500 MG PO WITH BREAKFAST DINNE, #30 TAB 06/15/16 Losartan Potassium* (Losartan Potassium*) 50 Mg Tablet, 50 MG PO DAILY, TAB 06/15/16 Amiodarone Hcl* (Amiodarone Hcl*) 200 Mg Tablet, 200 MG PO DAILY, #30 TAB 06/15/16 Digoxin* (Lanoxin*) 0.125 Mg Tablet, 0.125 MG PO DAILY, TAB 06/15/16 Apixaban* (Eliquis*) 2.5 Mg Tablet, 2.5 MG PO BID, TAB 06/15/16 Allergies Allergies: Coded Allergies: lisinopril (Verified Adverse Reaction, Intermediate, coughing, 08/07/16) PMhx/Soc History of Surgery: Yes (pacemaker) Anesthesia Reaction: No Hx Neurological Disorder: No Hx Respiratory Disorders: No Hx Cardiac Disorders: Yes (HTN, sick sinus, cardiomyopathy, pacemaker) Hx Psychiatric Problems: No Hx Alcohol Use: No Hx Substance Use: No Hx Tobacco Use: No Smoking Status: Never smoker FmHx Family History: diabetes Physical Exam Vitals Vital Signs Date Time Temp Pulse Resp B/P Pulse Ox O2 Delivery O2 Flow Rate FiO2 08/07/16 12:03 82 20 126/68 98 Nasal Cannula 2.0 08/07/16 09:02 Nasal Cannula 08/07/16 08:40 97.7 88 20 129/84 99 Physical Exam Const: Mild distress secondary to pain Head: Atraumatic Eyes: Normal Conjunctiva ENT: Normal External Ears, Nose and Mouth. Neck: Full range of motion..~ No meningismus. Resp: Clear to auscultation bilaterally Cardio: Regular rate and rhythm, no murmurs Abd: Soft, non tender, non distended. Normal bowel sounds Skin: Pale Back: Right-sided flank pain Ext: No cyanosis, or edema Neur: Awake and alert Psych: Normal Mood and Affect Result Diagram: 08/07/16 0855 08/07/16 0855 Results 24 hrs Laboratory Tests Test 08/07/16 08:55 08/07/16 11:13 08/07/16 11:25 White Blood Count 7.110^3/ul Red Blood Count 3.8710^6/ul Hemoglobin 10.4g/dl Hematocrit 32.6% Mean Corpuscular Volume 84.2fl Mean Corpuscular Hemoglobin 26.9pg Mean Corpuscular Hemoglobin Concent 31.9g/dl Red Cell Distribution Width 22.9% Platelet Count 8710^3/UL Mean Platelet Volume fl Neutrophils % 80.6% Lymphocytes % 8.6% Monocytes % 9.4% Eosinophils % 0.7% Basophils % 0.1% Nucleated Red Blood Cells % 0.0/100WBC Neutrophils # 5.710^3/ul Lymphocytes # 0.610^3/ul Monocytes # 0.710^3/ul Eosinophils # 0.110^3/ul Basophils # 0.010^3/ul Nucleated Red Blood Cells # 0.010^3/ul Prothrombin Time 18.8Sec Prothrombin Time Ratio 1.5 INR International Normalized Ratio 1.56 Activated Partial Thromboplast Time 44.3Sec Sodium Level 139mmol/L Potassium Level 4.2mmol/L Chloride Level 103mmol/L Carbon Dioxide Level 24mmol/L Anion Gap 16 Blood Urea Nitrogen 30mg/dl Creatinine 1.36mg/dl Glucose Level 136mg/dl Lactic Acid Level 1.4mmol/L 1.0mmol/L Calcium Level 8.9mg/dl Total Bilirubin 1.0mg/dl Direct Bilirubin 0.00mg/dl Indirect Bilirubin 1.0mg/dl Aspartate Amino Transf (AST/SGOT) 52IU/L Alanine Aminotransferase (ALT/SGPT) 36IU/L Alkaline Phosphatase 113IU/L Troponin I 0.622ng/ml Total Protein 7.3g/dl Albumin 3.0g/dl Globulin 4.30g/dl Albumin/Globulin Ratio 0.69 Urine Color YELLOW Urine Clarity CLEAR Urine pH 5.5 Urine Specific [place] 1.010 Urine Ketones NEGATIVE Urine Nitrite NEGATIVE Urine Bilirubin NEGATIVE Urine Urobilinogen 0.2 E.U./dL Urine Leukocyte Esterase NEGATIVE Urine Hemoglobin NEGATIVE Urine Glucose NEGATIVE% Urine Total Protein NEGATIVE Current Medications Medications (Trade) Dose Ordered Sig/Alistair Route PRN Reason Start Time Stop Time Status Last Admin Dose Admin Cefepime HCl (Maxipime 2gm/50 ml (Pmx)) 50 ml @ 100 mls/hr ONCE STAT IVPB 08/07/16 08:43 08/07/16 09:12 DC 08/07/16 09:09 Morphine Sulfate (morphine) 4 mg ONCE STAT IV 08/07/16 08:43 08/07/16 08:45 DC 08/07/16 09:09 Ondansetron HCl (Zofran Inj) 4 mg ONCE STAT IV 08/07/16 08:43 08/07/16 08:45 DC 08/07/16 09:08 Aspirin (Aspirin) 162 mg ONCE ONCE PO 08/07/16 10:30 08/07/16 10:31 DC Ondansetron HCl (Zofran Inj) 4 mg ER BRIDGE PRN IV NAUSEA AND/OR VOMITING 08/07/16 11:00 08/08/16 10:59 Acetaminophen (Tylenol Tab) 650 mg ER BRIDGE PRN PO MILD PAIN/FEVER 08/07/16 11:00 08/08/16 10:59 Procedures/MDM EKG read by me: Rate/Rhythm: Left bundle branch block a rate of 81 Intervals: Wide QRS Impression: Left bundle branch block with negative Sgarbossa criteria PROCEDURE: CT Abdomen and Pelvis without contrast CLINICAL INDICATION: Possible sepsis TECHNIQUE: Transaxial images were obtained through the abdomen and pelvis on a multi-slice scanner without the intravenous contrast administration. No oral contrast had previously been given. Sagittal and coronal re-formations were subsequently reconstructed. One or more of the following dose reduction techniques were used: - Automated exposure control. - Adjustment of the mA and/or kV according to patient size. - Use of iterative reconstruction technique. Radiation dose: CTDIvol = 21.63 mGy; DLP = 1304.50 mGy-cm. COMPARISON: Comparison to 04/20/2014 FINDINGS: Lung bases: Fairly extensive ground-glass infiltrates are again seen within the lung bases bilaterally along with small gravitating bilateral pleural fluid accumulations, unchanged. The heart remains enlarged with the pacemaker artifact and coronary artery disease. Liver: The liver is mildly enlarged and mildly nodular in contour suspicious for cirrhotic change. No focal lesion is evident. Gallbladder: There is cholelithiasis again noted. The gallbladder wall is not thickened. Bile ducts: The intra and extrahepatic bile ducts are normal in caliber. Pancreas: Appears normal with no mass or inflammation evident. Spleen: The spleen is not grossly enlarged. There is a vague area of decreased attenuation within the anterior superior spleen which was not clearly evident previously. Adrenals: Normal with no mass identified. Kidneys, ureters and bladder: The kidneys are slightly lobular in contour but no discrete mass is identified. There is perinephric stranding. There is no hydronephrosis. The ureters are normal in caliber and no ureteroliths are identified. The bladder is quite distended with a the right contour. Reproductive organs: The uterus deviates slightly to the left of midline. No adnexal mass is evident. Phleboliths are seen in the pelvis. Stomach and bowel: The stomach appears unremarkable. There is no evidence of bowel obstruction or inflammation. Appendix: A normal vermiform appendix is evident. Peritoneum: There is a small amount of free intraperitoneal fluid seen primarily within the cul-de-sac and to a lesser extent within the pericolic gutters. No free air is evident. Aorta: There is atherosclerotic vascular calcification but no abdominal aortic aneurysm is evident. IVC: Unremarkable. Lymph nodes: No pathologically enlarged nodes are identified. Osseous structures: There is grade 1 anterolisthesis of L4 and L5 associated degenerative facet changes. Diffuse degenerative endplate and facet changes are seen to the spine and there is anterior osteophytic bridging within the inferior thoracic spine. Soft tissues: There is considerable stranding within the subcutaneous fat of the anterior pelvis and filling regions suspicious for edema. IMPRESSION: 1. Persistent mild hepatomegaly with cirrhotic change but no focal lesion. 2. Increased gross splenomegaly with an area of decreased attenuation seen within the anterior superior spleen possibly an infarct. 3. Interval development of a small amount of free intraperitoneal fluid with no free air evident. 4. No evidence of bowel obstruction or inflammation with a normal vermiform appendix. 5. The bladder remains quite distended with urine but the wall is no longer thickened and there is no longer evidence of urinary outflow obstruction. Perinephric stranding is noted. 6. Diffuse ground-glass infiltrates are again seen within the lung bases and there are again small bilateral gravitating pleural fluid accumulations. 7. The heart remains enlarged. There is again coronary artery disease. Pacemaker artifact is again evident. 8. Degenerative spine changes are again noted with grade 1 anterolisthesis of L4 on L5 associated with degenerative facet changes. Physician Jojo Date Time Electronically viewed and signed by Kurt Ruiz Physician on 08/07/2016 10:10 Patient is a 76-year-old female with A. fib, diabetes, hypertension and recent NSTEMI who presents with right-sided back pain. She also had a positive blood culture just a few days ago and left AGAINST MEDICAL ADVICE. I am concerned for bacteremia an NSTEMI. Her troponin today is higher than it was when she was discharged. She has anemia with a hemoglobin of 10.4 but does not require transfusion. I did cover her empirically with antibiotics for the bacteremia but her lactic acid is normal and at this point I doubt true sepsis. The patient will be readmitted to Dr. Soto from the panel team as she has Medicare insurance and was recently admitted to the panel team. She was given aspirin for the positive troponin. Critical Care: Time: 35 minutes excluding all billable procedures. Treatments/Evaluations: Close monitoring and treatment of unstable vital signs, cardiorespiratory, and neurologic status, while maintaining tight balance of fluid, respiratory, and cardiac interventions. Departure Diagnosis: Primary Impression: NSTEMI (non-ST elevated myocardial infarction) Additional Impressions: Back pain Qualified Code: M54.5 - Acute right-sided low back pain without sciatica Bacteremia Anemia Qualified Code: D64.9 - Anemia, unspecified type Acute renal failure Qualified Code: N17.9 - Acute renal failure, unspecified acute renal failure type Condition: Serious BREANA CANNON MD Aug 07, 2016 13:25
[2016-08-07] MEDS ORDERED: ACETAMINOPHEN 650 MG SUPP PR PRN (14:30)
[2016-08-07] MEDS ORDERED: DOCUSATE SODIUM 100 MG CAP PO PRN (14:30)
[2016-08-07] MEDS ORDERED: NACL 0.9% 3 ML SYG IV SCH (14:30)
[2016-08-07] MEDS ORDERED: BISACODYL 10 MG SUPP PR PRN (14:30)
[2016-08-07] MEDS ORDERED: HYDROCODONE/APAP (5/325) TAB PO PRN (14:30)
[2016-08-07] MEDS ORDERED: NITROGLYCERIN (SL) 0.4 MG TAB SL PRN (14:30)
[2016-08-07] MEDS: morphine 2 MG INJ IV PRN (15:41)
[2016-08-07 16:10] LABS: CK-MB 0.55 ng/ml (0.0-2.4)
[2016-08-07 16:14] LABS: TROPONIN-I 0.409 ng/ml (0.00-0.12)
[2016-08-07] MEDS ORDERED: FUROSEMIDE 20 MG INJ IV SCH (18:00)
[2016-08-07] MEDS ORDERED: metFORMIN 500 MG TAB PO SCH (18:00)
[2016-08-07] MEDS ORDERED: FUROSEMIDE 40 MG TAB PO SCH (18:00)
[2016-08-07] MEDS: FUROSEMIDE 40 MG INJ IV SCH (20:00)
--- NOTE | 2016-08-07 20:18 | RADRPT ---
PROCEDURE: US DVT. CLINICAL INDICATION: Lower extremity pain and swelling. TECHNIQUE: Multiple longitudinal and transverse images of the bilateral lower extremity veins were obtained with du scale and color Doppler imaging. 2D grayscale measurements with compression, co maryan Doppler flow, and augmentation was performed. The calf veins were interrogated as well. COMPARISON: 08/02/2016. FINDINGS: Bilateral common femoral, superficial femoral and popliteal veins are normally compressible througho ut. Color flow demonstrates normal filling of the vessel. Normal waveforms are visualized and ther e is normal response to augmentation. The calf veins are visualized and are equally unremarkable. IMPRESSION: 1. No evidence of a deep vein thrombosis involving the bilateral lower extremities. RPTAT: HH .Anh Freitas MD, Date Time Electronically viewed and signed by .Anh Freitas MD, MD on 08/07/2016 20:18 .N/
--- NOTE | 2016-08-07 20:25 | HP ---
DATE OF ADMISSION: 08/07/2016 SCRUBBER OPERATOR: Cardiology. CHIEF COMPLAINT: Back pain and lower-extremity edema. HISTORY OF PRESENT ILLNESS: This is a 76-year-old female with past medical history of congestive he art failure, cardiomyopathy with ejection fraction of 25%, stage III-IV diastolic dysfunction, sever e aortic stenosis, pulmonary hypertension, hypothyroidism, status post pacemaker status, atrial fibr illation, normocytic anemia, and thrombocytopenia, who was recently hospitalized on 07/30/2016 and s igned out AMA on 08/04/2016, after it was found to have positive blood culture for gram-positive rios ci in pairs and chains, with alpha hemolytic strep and viridans group. The patient has been having decreased urine output, increase her back pain, and lower extremity swelling and edema without any s hortness of breath. The patient has been having difficulty with ambulation secondary to the low leydi k pain; therefore, today she was brought into the emergency room of [facility] for evaluation of her back pain. Upon evaluation, the patient's WBC was within normal limits, platelet s 87. Troponin was 0.62 and second troponin 0.409. Patient's creatinine was 1.36, BUN of 30. Card iology was consulted. The patient was treated with Zofran, morphine, cefepime, aspirin, and i n the course of the emergency room. At this time, the patient denies having any chest pain, shortne ss of breath, nausea, vomiting, diarrhea. No headache, dizziness, lightheadedness. No change in vi sual acuity, diplopia, photophobia. No abdominal pain, no nausea, vomiting, diarrhea, no change in color of stool. Positive for back pain, decreased range of motion of bilateral lower extremities, w ithout any evidence of neuropathy, or loss of motor or sensory, upper and lower extremities. The ot her 12 review of systems was found to be negative except for what was stated above per HPI. PAST MEDICAL AND SURGICAL HISTORY: As above per HPI. MEDICATIONS: 1. Amiodarone. 2. Eliquis. 3. Digoxin. 4. Ferrous sulfate. 5. Lasix. 6. Levothyroxine. 7. Losartan. 8. Metformin. 9. Metoprolol 10. Potassium chloride. 11. Crestor. ALLERGIES: LISINOPRIL. SOCIAL HISTORY: She lives at home with her daughter. She is a moderate dependent to others for her daily activity. FAMILY HISTORY: Noncontributory secondary to advanced age. REVIEW OF SYSTEMS: As above per HPI; otherwise, rest of review of systems was found to be negative. PHYSICAL EXAMINATION: VITAL SIGNS: Temperature 97.7, pulse 80, respirations 17, blood pressure 136/76, oxygen 100% room a ir. GENERAL APPEARANCE: The patient is lying in bed comfortably without any acute distress. She is kaelyn ke, alert, oriented, able to follow commands. EYES AND ENT: Conjunctivae and lids are normal. Pupils are normal. Extraocular normal. Hearing g rossly normal. Lips are normal. Oral mucosa is mildly dry. NECK: Supple. Trachea is midline. No lymphadenopathy. RESPIRATORY: Effort is normal. Clear to auscultation bilaterally. CARDIOVASCULAR: Normal S1, S2, regular rhythm and rate. No murmur, no bruits, no edema. CARDIOVASCULAR: Normal S1, S2. There is III/ systolic murmur at the apex, +2 lower extremity henrietta ma bilaterally. No gallop, no rales. ABDOMEN: Soft, nontender, not distended. Bowel sounds present. No guarding, no rebound. GENITOURINARY: Deferred. MUSCULOSKELETAL: Upper and lower extremities within normal limits. There is some ecchymosis on hamida ateral upper extremities, with +2 edema bilateral lower extremities. NEUROLOGIC: Cranial nerves II-XII seem grossly intact. PSYCHIATRIC: She is awake, alert, able to follow commands. LABORATORY WORK AND IMAGING: Sodium 139, potassium 4.2, chloride 103, bicarbonate 24, BUN 30, creat inine 1.06, glucose 136. Lactic acid 1.4. LFTs all within normal limits except AST is 52. Troponi n 0.622 and 0.49. Total protein 7.3, albumin 3. WBC 7.1, hemoglobin 10.4, hematocrit 32.6, platele ts 87. Urinalysis: Negative. PT 18.8, INR 1.56. ASSESSMENT AND PLAN: 1. Low-back pain. We will obtain physical therapy, pain medication via morphine and [place]. 2. Atrial fibrillation. Continue digoxin, Eliquis, and amiodarone. Cardiology has been consulted. 3. Essential hypertension. Continue losartan and metoprolol. 4. Dyslipidemia. Continue Crestor. 5. Cardiomyopathy with ejection fraction 25%, with stage III-IV diastolic dysfunction. Cardiology has been consulted. Continue Losartan, give the patient IV Lasix, follow cardiology recommendations . 6. Thrombocytopenia, chronic. There is no evidence of bleeding. Continue to monitor. We will fol low up cardiology recommendation regarding continued Eliquis in this patient who has history of thro mbocytopenia. 7. Hypothyroidism. Continue levothyroxine. We will continue to monitor patient closely. Further recommendations, management, and treatment as per clinical course. Dictated By: NACHO KHANNA/NTS Conf#: [id number] DID#: [id number]
[2016-08-07] MEDS ORDERED: METOPROLOL 50 MG TAB PO SCH (21:00)
[2016-08-07] MEDS: METOPROLOL (XL) 25 MG TAB PO SCH (21:00)
[2016-08-07] MEDS: CLINDAMYCIN 600 MG/D5W (PMX) 50 ML IVPB SCH (21:36)
[2016-08-07] MEDS: POTASSIUM CHLORIDE (SR) 8 MEQ CAP PO SCH (21:36)
[2016-08-07] MEDS: LACTOBACILLUS RHAMNOSUS CAP PO SCH (21:36)
[2016-08-07] MEDS: FERROUS SULFATE (EC) 325 MG TAB PO SCH (21:36)
[2016-08-07] MEDS: ATORVASTATIN 40 MG TAB PO SCH (21:37)
[2016-08-07] MEDS: APIXABAN 5 MG TABLET PO SCH (21:37)
[2016-08-07 23:00] LABS: CREATINE KINASE < 20 IU/L (23-200)
[2016-08-07 23:09] LABS: CK-MB 0.64 ng/ml (0.0-2.4)
[2016-08-07 23:13] LABS: TROPONIN-I 0.368 ng/ml (0.00-0.12)
--- NOTE | 2016-08-07 23:22 | CONS ---
DATE OF ADMISSION: 08/07/2016 DATE OF CONSULTATION: 08/07/2016 REASON FOR CONSULTATION: Cardiomyopathy with severely depressed left ventricular ejection fraction. Positive troponin. Assess for acute coronary syndrome, cardiac arrhythmia. REQUESTING PHYSICIAN: Dr. Dave from the hospitalist service. HISTORY OF PRESENT ILLNESS: Ms. Albrecht is a 76-year-old female with history of hypertension, di abetes mellitus, cardiomyopathy with recently discovered worsening left ventricular ejection fractio n, atrial fibrillation, not on systemic anticoagulation due to prior bleeding complications and thro mbocytopenia, hypothyroidism, aortic stenosis, moderate by most recent echo, sick sinus syndrome, st atus post permanent pacemaker who had recently been admitted with complaints of chills and vomiting. During that hospital admission, the patient was noted to have a new depressed EF from 40% a month prior to approximately 25%. The patient additionally in that setting had mildly positive troponins and, therefore, was taken to the cardiac laboratory scientist where she was found to have moderate nonobstructiv e coronary artery disease involving the PDA of the right coronary artery, the circumflex, and LAD, a nd moderate to severe aortic stenosis, likely consistent with severe low gradient aortic stenosis. The patient's picture was concerning for possible Takotsubo cardiomyopathy. The patient additionall y had blood cultures drawn with the last culture growing alpha hemolytic strep. The patient then si gned out AMA and now re-presents with complaints of back pain and generalized weakness. The patient denies chest pain, shortness of breath. Upon arrival, temperature was 97.7, blood pressure 129/84, pulse 88, respiratory 20, respiratory 99% . The patient's labs revealed white count of 7.1, hemoglobin 10.4, platelet count of 87. Sodium 13 9, potassium 4.2, creatinine 1.36, BUN of 30. INR of 1.56. UA negative. The patient underwent a c hest x-ray revealing stable cardiomegaly and atherosclerotic aortic calcification, worsening interst itial prominence may reflect edema versus interstitial pneumonia. AICD in place. The patient under went abdominopelvic CT revealing persistent mild hepatomegaly and cirrhotic change without focal les ion, increased gross splenomegaly, interval development of a small amount of free ____ fluid. No ev idence of bowel obstruction. Diffuse ground glass infiltrates within the lung bases, degenerative c hanges in the spine. The patient's electrocardiogram was ventricular paced, rate of 81 with ____ fo r probable underlying atrial fibrillation. The patient subsequently at this time has been treated w ith Zofran, aspirin, cefepime, morphine, and now awaits admit to the floor. PAST MEDICAL HISTORY: As above in HPI. MEDICATIONS CURRENTLY IN HOSPITAL: 1. Lasix 40 mg p.o. b.i.d. 2. Digoxin 0.125 mg daily. 3. Amiodarone 200 mg daily. 4. Cozaar 50 mg daily. 5. Synthroid 100 mcg daily. 6. Clindamycin. 7. Apixaban 2.5 mg b.i.d. 8. Metoprolol tartrate 50 mg b.i.d. 9. Potassium chloride 8 mEq b.i.d. 10. Lipitor 40 mg daily. ALLERGIES: LISINOPRIL. SOCIAL HISTORY: No tobacco, ETOH, or illicit drug use. FAMILY HISTORY: No history of sudden cardiac or early CAD. REVIEW OF SYSTEMS: As above in HPI. CONSTITUTIONAL: No fevers, chills. PULMONARY: No current shortness of breath. CARDIOVASCULAR: No current chest pain. History of cardiomyopathy with severely depressed left vent ricular ejection fraction. GASTROINTESTINAL: No vomiting. GENITOURINARY: No hematuria. Positive renal failure. PSYCHIATRIC: No documented psych history. NEUROLOGIC: No documented history of CVA. ENDOCRINE: Positive diabetes mellitus. PHYSICAL EXAMINATION: VITAL SIGNS: Temperature of 97.7, blood pressure 113/55, pulse 80, respiratory rate 22, saturating 98% on 3 liters. GENERAL: The patient is alert, awake, complaining of back pain, generalized weakness, and chills. NECK: JVP approximately 9 to 10 cm water. CHEST: Bibasilar crackles. HEART: Regular rate and rhythm. Normal S1, S2. Laterally displaced PMI, II/ systolic murmur rad iating to the carotids consistent with aortic stenosis. ABDOMEN: Positive bowel sounds, soft. EXTREMITIES: 2+ pitting edema bilaterally, 1+ pulses bilaterally posterior tibial. LABORATORY DATA: As above in HPI. No further labs for my review at this time except for a repeat t roponin trend down from 0.622 to 0.409 with negative CK-MB. IMAGING STUDIES: As above in HPI. No further imaging studies for my review at this time. ELECTROCARDIOGRAM: As above in HPI. No further electrocardiograms for my review at this time. IMPRESSION: 1. Congestive heart failure exacerbation, systolic, acute on chronic. 2. Positive troponin, minimal, in the setting of renal failure with catheterization during last adm ission revealing moderate nonobstructive coronary artery disease. 3. Cardiomyopathy with severely depressed left ventricular ejection fraction, last approximately 25 %. 4. Acute renal failure. 5. Cardiac arrhythmia, on amiodarone with atrial fibrillation and apixiban. 6. Dyslipidemia. 7. Hypothyroidism. 8. Bacteremia. 9. Back pain. 10. Anemia. RECOMMENDATIONS: 1. At this time, would admit patient to telemetry monitoring to follow rhythm and rate control clos terrence. 2. Continue the patient's Lasix diuresis, following strict I's and O's to grade diuresis closely an d creatinine closely. 3. Would continue to trend the patient's cardiac enzymes to assess for any significant ongoing card iac damage. 4. Continue patient's current Losartan, but follow creatinine closely. If continues to worsen, wou ld likely discontinue Losartan and start hydralazine afterload reduction in its place. 5. Continue the patient's metoprolol, although patient should be changed to Toprol-XL given her car diomyopathy to improve overall efficacy. 6. Continue the patient's antibiotics and follow up all culture data including blood cultures. 7. For ongoing back pain, consider further imaging of the spine. 8. Check a TSH to be sure that subclinical hyperthyroidism is not contributing to any current bouts of cardiac arrhythmia. Thank you for allowing me to take part in the care of this patient. I will continue to follow along very closely with you. Further recommendations will be made as the patient progresses through her inpatient hospital clinical course. Dictated By: MATHEW BACH/JARRELL Conf#: [id number] DID#: [id number] CC: NACHO DAVE MD;*End*
[2016-08-07 23:51] VITALS: TEMP 98.1
[2016-08-08] VITALS (12 sets, daily range): BP systolic 111–163; BP diastolic 55–80; PULSE 80; RESP 15–23; Ht 162.6 cm; Wt 100.0 kg
[2016-08-08 02:51] LABS: CREATINE KINASE < 20 IU/L (23-200)
[2016-08-08 03:08] LABS: TROPONIN-I 0.371 ng/ml (0.00-0.12)
[2016-08-08] MEDS: morphine 2 MG INJ IV PRN (03:42)
[2016-08-08] MEDS ORDERED: VANCOMYCIN IV PER PHARMACY XX SCH (05:30)
[2016-08-08] MEDS: FUROSEMIDE 40 MG INJ IV SCH ×2 (06:18→17:29)
[2016-08-08] MEDS ORDERED: morphine 2 MG INJ IV PRN (06:30)
[2016-08-08] MEDS: LEVOTHYROXINE 100 MCG TAB PO SCH (07:00)
[2016-08-08] MEDS ORDERED: VANCOMYCIN 2 GM in SOD CHLORIDE 0.9% 500 ML IVPB SCH (07:00)
[2016-08-08 07:27] LABS: ADD SCAN DIFF NO
[2016-08-08 07:39] LABS: ABNORMAL IP MESSAGE 1; BASOPHILS % 0.1 % (0.0-2.0); EOSINOPHILS % 0.4 % (0.0-7.0); HEMATOCRIT 31.1 % (37.0-47.0); LYMPHOCYTES # 0.6 10^3/ul (0.8-2.9); LYMPHOCYTES % 7.5 % (15.0-51.0); MEAN CORPUSCULAR HEMOGLOBIN 27.5 pg (29.0-33.0); MEAN CORPUSCULAR HGB CONC 32.2 g/dl (32.0-37.0); MEAN CORPUSCULAR VOLUME 85.4 fl (82.0-101.0); MONOCYTE # 0.7 10^3/ul (0.3-0.9); MONOCYTES % 8.3 % (0.0-11.0); NEUTROPHIL # 6.7 10^3/ul (1.6-7.5); NEUTROPHILS % 82.8 % (39.0-77.0); RED BLOOD COUNT 3.64 10^6/ul (4.20-5.40); RED CELL DISTRIBUTION WIDTH 22.7 % (11.5-14.5); WHITE BLOOD COUNT 8.1 10^3/ul (4.8-10.8)
[2016-08-08 07:41] LABS: PLATELET COUNT 112 10^3/UL (140-415)
[2016-08-08 07:45] LABS: POTASSIUM 4.3 mmol/L (3.5-5.1)
[2016-08-08 07:48] LABS: CALCIUM 8.8 mg/dl (8.4-10.2); CREATININE 1.19 mg/dl (0.44-1.00)
[2016-08-08] MEDS ORDERED: ENOXAPARIN 40 MG/0.4 ML SYG SC SCH (09:00)
[2016-08-08] MEDS: CLINDAMYCIN 600 MG/D5W (PMX) 50 ML IVPB SCH ×3 (10:03→21:51)
[2016-08-08] MEDS: POTASSIUM CHLORIDE (SR) 8 MEQ CAP PO SCH ×2 (10:03→21:00)
[2016-08-08] MEDS: LACTOBACILLUS RHAMNOSUS CAP PO SCH ×2 (10:03→20:38)
[2016-08-08] MEDS: AMIODARONE 200 MG TAB PO SCH (10:04)
[2016-08-08] MEDS: LOSARTAN 50 MG TAB PO SCH (10:04)
[2016-08-08] MEDS: APIXABAN 5 MG TABLET PO SCH ×2 (10:04→20:36)
[2016-08-08] MEDS: METOPROLOL (XL) 25 MG TAB PO SCH ×2 (10:04→20:37)
[2016-08-08] MEDS: FERROUS SULFATE (EC) 325 MG TAB PO SCH ×2 (10:04→20:36)
[2016-08-08] MEDS: DIGOXIN 0.125 MG TAB PO SCH (14:48)
--- NOTE | 2016-08-08 15:16 | RADRPT ---
PROCEDURE: XR Chest. CLINICAL INDICATION: Shortness of breath. TECHNIQUE: Single frontal view. COMPARISON: 08/07/2016. FINDINGS: There is extensive bilateral pulmonary airspace and interstitial disease consistent with pulmonary e paz or bilateral pneumonia, worse than seen previously. The heart is enlarged. There is a left-sided single lead permanent pacemaker/internal cardiac defib rillator. There are small bilateral pleural effusions. There is no pneumothorax. IMPRESSION: 1. Worse appearance of the lungs. 2. No other change from 08/07/2016. RPTAT: QQ .Natalio Kim MD, MD Date Time Electronically viewed and signed by .Natalio Kim MD, MD on 08/08/2016 15:15 .R/
--- NOTE | 2016-08-08 16:40 | PN ---
Date/Time of Note Date/Time of Note DATE: 08/08/16 TIME: 16:37 Assessment/Plan VTE Prophylaxis VTE Prophylaxis Intervention: SCD's Lines/Catheters IV Catheter Type (from Nrs): Peripheral IV Urinary Cath still in place: No Assessment/Plan Chief Complaint/Hosp Course ASSESSMENT AND PLAN: 1. Low-back pain. We will obtain physical therapy, pain medication via morphine and [place]. 2. Atrial fibrillation. Continue digoxin, Eliquis, and amiodarone. Cardiology has been consulted. 3. Essential hypertension. Continue losartan and metoprolol. 4. Dyslipidemia. Continue Crestor. 5. Cardiomyopathy with ejection fraction 25%, with stage III-IV diastolic dysfunction. Cardiology has been consulted. Continue Losartan, give the patient IV Lasix, follow cardiology recommendations. 6. Thrombocytopenia, chronic. There is no evidence of bleeding. Continue to monitor. We will follow up cardiology recommendation regarding continued Eliquis in this patient who has history of thrombocytopenia. 7. Hypothyroidism. Continue levothyroxine. 8. Recent history of bacteremia. Continue clindamycin 9. Urinary tract infection. Follow-up culture and sensitivity We will continue to monitor patient closely. Further recommendations, management, and treatment as per clinical course. PT OT eval and treat logistics engineering manager for group home facility placement versus acute rehab Problems: Subjective 24 Hr Interval Summary Free Text/Dictation Patient continues to have respiratory distress and generalized weakness Denies of any chest pain Following oral intake Exam/Review of Systems Vital Signs Vitals Vital Signs Date Time Temp Pulse Resp B/P Pulse Ox O2 Delivery O2 Flow Rate FiO2 08/08/16 16:00 80 08/08/16 15:41 98.2 18 111/55 93 08/08/16 03:07 2.0 08/07/16 19:25 Nasal Cannula Intake and Output 08/07/16 08/07/16 08/08/16 15:00 23:00 07:00 Intake Total 200 ml Balance 200 ml Exam General: The patient is well-developed, Not in acute distress. HEENT: Atraumatic, normocephalic. The pupils are equal and round . Neck: Supple with full range of motion. Chest: Normal expansion Lungs: Decreased breath sounds bilateral lower lung field Heart: Normal S1-S2, Regular rhythm and rate. Stage 2/6 systolic murmur Abdomen: Soft , nontender, nondistended , bowel sounds are present. Extremities: Normal to inspection, trace edema no cyanosis Neurologic: Normal mental status,The patient is awake, alert and oriented . Results Result Diagram: 08/08/16 0633 08/08/16 0633 Results 24 hrs Laboratory Tests Test 08/07/16 21:50 08/08/16 02:20 08/08/16 06:33 08/08/16 12:56 Lactic Acid Level 1.3 Creatine Kinase < 20 L < 20 L Creatine Kinase Index Creatinine Kinase MB (Mass) 0.64 0.70 Troponin I 0.368 *H 0.371 *H White Blood Count 8.1 Red Blood Count 3.64 L Hemoglobin 10.0 L Hematocrit 31.1 L Mean Corpuscular Volume 85.4 Mean Corpuscular Hemoglobin 27.5 L Mean Corpuscular Hemoglobin Concent 32.2 Red Cell Distribution Width 22.7 H Platelet Count 112 #L Mean Platelet Volume Neutrophils % 82.8 H Lymphocytes % 7.5 L Monocytes % 8.3 Eosinophils % 0.4 Basophils % 0.1 Nucleated Red Blood Cells % 0.0 Neutrophils # 6.7 Lymphocytes # 0.6 L Monocytes # 0.7 Eosinophils # 0.0 Basophils # 0.0 Nucleated Red Blood Cells # 0.0 Sodium Level 141 Potassium Level 4.3 Chloride Level 103 Carbon Dioxide Level 27 Anion Gap 15 Blood Urea Nitrogen 32 H Creatinine 1.19 H Glucose Level 153 Calcium Level 8.8 Magnesium Level 2.0 B-Type Natriuretic Peptide 01159 H Bedside Glucose 240 H Medications Medications Current Medications Amiodarone HCl (Cordarone) 200 mg DAILY PO Last administered on 08/08/16 10:04 ; Admin Dose 200 MG; Start 08/08/16 at 09:00 Apixaban (Eliquis) 2.5 mg BID PO Last administered on 08/08/16 10:04; Admin Dose 2.5 MG; Start 08/07/16 at 21:00 Digoxin (Digoxin) 0.125 mg DAILY@13 PO Last administered on 08/08/16 14:48; Admin Dose 0.125 MG; Start 08/08/16 at 13:00 Ferrous Sulfate (Ferrous Sulfate (Ec)) 325 mg BID PO Last administered on 10:04; Admin Dose 325 MG; Start 08/07/16 at 21:00 Losartan Potassium (Cozaar) 50 mg DAILY PO Last administered on 08/08/16 10:04 ; Admin Dose 50 MG; Start 08/08/16 at 09:00 Potassium Chloride (Micro-K) 8 meq BID PO Last administered on 08/08/16 10:03; Admin Dose 8 MEQ; Start 08/07/16 at 21:00 Atorvastatin Calcium (Lipitor) 40 mg DAILY@21 PO Last administered on 08/07/16 21:37; Admin Dose 40 MG; Start 08/07/16 at 21:00 Lorazepam (Ativan) 0.5 mg Q6H PRN IV ANXIETY; Start 08/07/16 at 14:30 Ondansetron HCl (Zofran Inj) 4 mg Q6H PRN IV NAUSEA AND/OR VOMITING Last administered on 08/07/16 15:41; Admin Dose 4 MG; Start 08/07/16 at 14:30 Nitroglycerin (Nitroglycerin (Sl Tab) 0.4 Mg) 1 tab Q5M PRN SL CHEST PAIN; Start 08/07/16 at 14:30 Acetaminophen (Tylenol Tab) 650 mg Q6H PRN PO PAIN LEVEL 1-3 OR FEVER; Start at 14:30 Acetaminophen (Tylenol Supp) 650 mg Q6H PRN [place] PAIN LEVEL 1-3 OR FEVER; Start 08/07/16 at 14:30 Acetaminophen/ Hydrocodone Bitart ([place] (5/325)) 1 tab Q6H PRN PO PAIN LEVEL 4 -6 Last administered on 08/08/16 01:18; Admin Dose 1 TAB; Start 08/07/16 at 14:30 Docusate Sodium (Colace) 100 mg Q12H PRN PO CONSTIPATION; Start 08/07/16 at 14: 30 Bisacodyl 10 mg 10 mg DAILY PRN [place] CONSTIPATION; Start 08/07/16 at 14:30 Clindamycin HCl/ Dextrose (Cleocin 600 Mg/ D5W (Pmx)) 50 ml @ 50 mls/hr Q8 IVPB Last administered on 08/08/16 10:03; Admin Dose 50 MLS/HR; Start 08/07/16 at 22 :00 Lactobacillus Acidophilus/ Rhamnosus (Culturelle) 1 cap BID PO Last administered on 08/08/16 10:03; Admin Dose 1 CAP; Start 08/07/16 at 21:00 Metoprolol Succinate (Toprol Xl) 25 mg BID PO Last administered on 08/08/16 10: 04; Admin Dose 25 MG; Start 08/07/16 at 21:00 Morphine Sulfate 2 mg 2 mg Q4H PRN IV PAIN LEVEL 7-10 Last administered on 06:17; Admin Dose 2 MG; Start 08/08/16 at 06:30 Vancomycin HCl/ Sodium Chloride (Vancocin/NS) 250 ml @ 83.333 mls/ hr Q24H IVPB ; Start 08/09/16 at 07:00 NACHO DAVE MD Aug 08, 2016 16:40
--- NOTE | 2016-08-08 17:08 | CONS ---
Date/Time of Note Date/Time of Note DATE: 08/08/16 TIME: 17:05 Assessment/Plan Assessment/Plan Additional Assessment/Plan 1. Congestive heart failure exacerbation, systolic, acute on chronic- Ef 25% - con't gentle diuresis. 2. Positive troponin, minimal, in the setting of renal failure with catheterization during last admission revealing moderate nonobstructive coronary artery disease- no intervention planned now. 3. Cardiomyopathy with severely depressed left ventricular ejection fraction, last approximately 25%- outpt ICD eval. 4. Acute renal failure. 5. Cardiac arrhythmia, on amiodarone with atrial fibrillation and apixiban- no new episodes now. 6. Dyslipidemia. 7. Hypothyroidism. 8. Bacteremia - on anti-Bx, con't Med rrx. 9. Back pain. 10. Anemia. Consultation Date/Type/Reason Admit Date/Time Aug 07, 2016 at 10:54 Initial Consult Date 24 HR Interval Summary Free Text/Dictation NO acute e vents - BP stable - rate controlled in a. fib - con't diuresis. ROS: No fever, no chills, no nausea, no vomiting, no diarrhea/constipation No recent weight changes No chest pain, no PND, no orthopnea No dizziness, blurred vision No thirst, no heat or cold intolerance Exam/Review of Systems Vital Signs Vitals Vital Signs Date Time Temp Pulse Resp B/P Pulse Ox O2 Delivery O2 Flow Rate FiO2 08/08/16 16:00 80 08/08/16 15:41 98.2 18 111/55 93 08/08/16 03:07 2.0 08/07/16 19:25 Nasal Cannula Intake and Output 08/07/16 08/07/16 08/08/16 15:00 23:00 07:00 Intake Total 200 ml Balance 200 ml Exam General: WN/WD/NAD, AOx 2-3 HEENT: Unicetric/atraumatic/EOMI (follow commands) NECK: JVD elevated, no thyromegaly Lymph: no lymphadenopathy HEART: Ir IRregular with no S3, II/ systolic murmur at apex LUNGS: Coarse sounds ABD: soft, NT, ND, +BS : Intact Neuro: non focal SKIN: chronic changes EXT: trace edema Results Result Diagram: 08/08/16 0633 08/08/16 0633 Results 24 hrs Laboratory Tests Test 08/07/16 21:50 08/08/16 02:20 08/08/16 06:33 08/08/16 12:56 Lactic Acid Level 1.3 Creatine Kinase < 20 L < 20 L Creatine Kinase Index Creatinine Kinase MB (Mass) 0.64 0.70 Troponin I 0.368 *H 0.371 *H White Blood Count 8.1 Red Blood Count 3.64 L Hemoglobin 10.0 L Hematocrit 31.1 L Mean Corpuscular Volume 85.4 Mean Corpuscular Hemoglobin 27.5 L Mean Corpuscular Hemoglobin Concent 32.2 Red Cell Distribution Width 22.7 H Platelet Count 112 #L Mean Platelet Volume Neutrophils % 82.8 H Lymphocytes % 7.5 L Monocytes % 8.3 Eosinophils % 0.4 Basophils % 0.1 Nucleated Red Blood Cells % 0.0 Neutrophils # 6.7 Lymphocytes # 0.6 L Monocytes # 0.7 Eosinophils # 0.0 Basophils # 0.0 Nucleated Red Blood Cells # 0.0 Sodium Level 141 Potassium Level 4.3 Chloride Level 103 Carbon Dioxide Level 27 Anion Gap 15 Blood Urea Nitrogen 32 H Creatinine 1.19 H Glucose Level 153 Calcium Level 8.8 Magnesium Level 2.0 B-Type Natriuretic Peptide 90743 H Bedside Glucose 240 H Medications Medications Current Medications Amiodarone HCl (Cordarone) 200 mg DAILY PO Last administered on 08/08/16 10:04 ; Admin Dose 200 MG; Start 08/08/16 at 09:00 Apixaban (Eliquis) 2.5 mg BID PO Last administered on 08/08/16 10:04; Admin Dose 2.5 MG; Start 08/07/16 at 21:00 Digoxin (Digoxin) 0.125 mg DAILY@13 PO Last administered on 08/08/16 14:48; Admin Dose 0.125 MG; Start 08/08/16 at 13:00 Ferrous Sulfate (Ferrous Sulfate (Ec)) 325 mg BID PO Last administered on 10:04; Admin Dose 325 MG; Start 08/07/16 at 21:00 Losartan Potassium (Cozaar) 50 mg DAILY PO Last administered on 08/08/16 10:04 ; Admin Dose 50 MG; Start 08/08/16 at 09:00 Potassium Chloride (Micro-K) 8 meq BID PO Last administered on 08/08/16 10:03; Admin Dose 8 MEQ; Start 08/07/16 at 21:00 Atorvastatin Calcium (Lipitor) 40 mg DAILY@21 PO Last administered on 08/07/16 21:37; Admin Dose 40 MG; Start 08/07/16 at 21:00 Lorazepam (Ativan) 0.5 mg Q6H PRN IV ANXIETY; Start 08/07/16 at 14:30 Ondansetron HCl (Zofran Inj) 4 mg Q6H PRN IV NAUSEA AND/OR VOMITING Last administered on 08/07/16 15:41; Admin Dose 4 MG; Start 08/07/16 at 14:30 Nitroglycerin (Nitroglycerin (Sl Tab) 0.4 Mg) 1 tab Q5M PRN SL CHEST PAIN; Start 08/07/16 at 14:30 Acetaminophen (Tylenol Tab) 650 mg Q6H PRN PO PAIN LEVEL 1-3 OR FEVER; Start at 14:30 Acetaminophen (Tylenol Supp) 650 mg Q6H PRN [place] PAIN LEVEL 1-3 OR FEVER; Start 08/07/16 at 14:30 Acetaminophen/ Hydrocodone Bitart ([place] (5/325)) 1 tab Q6H PRN PO PAIN LEVEL 4 -6 Last administered on 08/08/16 01:18; Admin Dose 1 TAB; Start 08/07/16 at 14:30 Docusate Sodium (Colace) 100 mg Q12H PRN PO CONSTIPATION; Start 08/07/16 at 14: 30 Bisacodyl 10 mg 10 mg DAILY PRN [place] CONSTIPATION; Start 08/07/16 at 14:30 Clindamycin HCl/ Dextrose (Cleocin 600 Mg/ D5W (Pmx)) 50 ml @ 50 mls/hr Q8 IVPB Last administered on 08/08/16 10:03; Admin Dose 50 MLS/HR; Start 08/07/16 at 22 :00 Lactobacillus Acidophilus/ Rhamnosus (Culturelle) 1 cap BID PO Last administered on 08/08/16 10:03; Admin Dose 1 CAP; Start 08/07/16 at 21:00 Metoprolol Succinate (Toprol Xl) 25 mg BID PO Last administered on 08/08/16 10: 04; Admin Dose 25 MG; Start 08/07/16 at 21:00 Morphine Sulfate 2 mg 2 mg Q4H PRN IV PAIN LEVEL 7-10 Last administered on t 06:17; Admin Dose 2 MG; Start 08/08/16 at 06:30 Vancomycin HCl/ Sodium Chloride (Vancocin/NS) 250 ml @ 83.333 mls/ hr Q24H IVPB ; Start 08/09/16 at 07:00 MILAGROS PRESSLEY MD Aug 08, 2016 17:07
[2016-08-08] MEDS ORDERED: FUROSEMIDE 40 MG TAB PO SCH (18:00)
[2016-08-08] MEDS: ATORVASTATIN 40 MG TAB PO SCH (20:36)
[2016-08-08] MEDS: LORAZEPAM 2 MG INJ IV PRN (20:37)
[2016-08-09] VITALS (12 sets, daily range): BP systolic 101–155; BP diastolic 53–75; PULSE 79–81; RESP 16–20
[2016-08-09 05:48] LABS: ADD SCAN DIFF NO
[2016-08-09 05:56] LABS: ABNORMAL IP MESSAGE 1; BASOPHILS % 0.2 % (0.0-2.0); EOSINOPHILS % 0.4 % (0.0-7.0); HEMATOCRIT 31.1 % (37.0-47.0); HEMOGLOBIN 9.7 g/dl (12.0-16.0); LYMPHOCYTES # 0.4 10^3/ul (0.8-2.9); LYMPHOCYTES % 5.2 % (15.0-51.0); MEAN CORPUSCULAR HEMOGLOBIN 26.9 pg (29.0-33.0); MEAN CORPUSCULAR HGB CONC 31.2 g/dl (32.0-37.0); MEAN CORPUSCULAR VOLUME 86.4 fl (82.0-101.0); MONOCYTE # 0.6 10^3/ul (0.3-0.9); MONOCYTES % 7.3 % (0.0-11.0); NEUTROPHIL # 6.9 10^3/ul (1.6-7.5); NEUTROPHILS % 85.8 % (39.0-77.0); PLATELET COUNT 110 10^3/UL (140-415); RED CELL DISTRIBUTION WIDTH 22.6 % (11.5-14.5); WHITE BLOOD COUNT 8.1 10^3/ul (4.8-10.8)
[2016-08-09 06:22] LABS: POTASSIUM 3.9 mmol/L (3.5-5.1)
[2016-08-09 06:24] LABS: CREATININE 1.14 mg/dl (0.44-1.00)
[2016-08-09 06:25] LABS: CALCIUM 8.4 mg/dl (8.4-10.2); MAGNESIUM 1.9 mg/dl (1.7-2.5)
[2016-08-09] MEDS: LEVOTHYROXINE 100 MCG TAB PO SCH (06:38)
[2016-08-09] MEDS: FUROSEMIDE 40 MG INJ IV SCH ×2 (06:38→17:53)
[2016-08-09] MEDS: CLINDAMYCIN 600 MG/D5W (PMX) 50 ML IVPB SCH ×2 (06:39→14:43)
[2016-08-09] MEDS: VANCOMYCIN 1.25 GM in SOD CHLORIDE 0.9% 250 ML IVPB SCH (06:42)
[2016-08-09] MEDS: LACTOBACILLUS RHAMNOSUS CAP PO SCH ×2 (08:56→20:09)
[2016-08-09] MEDS: AMIODARONE 200 MG TAB PO SCH (08:56)
[2016-08-09] MEDS: LOSARTAN 50 MG TAB PO SCH (08:57)
[2016-08-09] MEDS: POTASSIUM CHLORIDE (SR) 8 MEQ CAP PO SCH ×2 (08:57→20:09)
[2016-08-09] MEDS: METOPROLOL (XL) 25 MG TAB PO SCH ×2 (08:57→20:10)
[2016-08-09] MEDS: APIXABAN 5 MG TABLET PO SCH ×2 (08:57→20:09)
[2016-08-09] MEDS: FERROUS SULFATE (EC) 325 MG TAB PO SCH ×2 (08:57→20:09)
[2016-08-09] MEDS: DIGOXIN 0.125 MG TAB PO SCH (14:43)
--- NOTE | 2016-08-09 15:29 | CONS ---
Date/Time of Note Date/Time of Note DATE: 08/09/16 TIME: 15:25 Assessment/Plan Assessment/Plan Chief Complaint/Hosp Course IMPRESSION: 1. Congestive heart failure exacerbation, systolic, acute on chronic. 2. Positive troponin, minimal, in the setting of renal failure with catheterization during last admission revealing moderate nonobstructive coronary artery disease. 3. Cardiomyopathy with severely depressed left ventricular ejection fraction, last approximately 25%. 4. Acute renal failure. 5. Cardiac arrhythmia, on amiodarone with atrial fibrillation and apixiban. 6. Dyslipidemia. 7. Hypothyroidism. 8. Bacteremia-2/2 bottles positive tis admission 9. Back pain. 10. Anemia. Recc: -Tele -Continue losartan/toprol XL -Continue amio/apixaban -Continue lasix diuresis and follow-up volume status closely -Contineu abx's and f/u cx data for sens/speciation Problems: Consultation Date/Type/Reason Admit Date/Time Aug 07, 2016 at 10:54 Initial Consult Date 08/07/2016 Type of Consultation: Cardiology Reason for Consultation CHF Referring Provider: NACHO DAVE MD Exam/Review of Systems Vital Signs Vitals Vital Signs Date Time Temp Pulse Resp B/P Pulse Ox O2 Delivery O2 Flow Rate FiO2 08/09/16 12:25 80 08/09/16 12:10 97.8 20 101/57 91 08/08/16 20:35 2.0 08/07/16 19:25 Nasal Cannula Intake and Output 08/08/16 08/08/16 08/09/16 15:00 23:00 07:00 Intake Total 550 ml 250 ml Balance 550 ml 250 ml Exam Review of Systems: CONSTITUTIONAL: Positive chills. PULMONARY: No sob CARDIOVASCULAR: No chest pain/palpitations GASTROINTESTINAL: No nausea/vomiting. GENITOURINARY: No hematuria/dysuria. MUSCULOSKELETAL: No myagias/arthalgias. PSYCHIATRIC: The patient denies depression. NEUROLOGIC: Generalized weakness Constitutional: alert Psych: no complaints Head: normocephalic ENMT: mucosa pink and moist Neck: jvd (9cm water), supple Respiratory: diminished breath sounds (at bases/B) Cardiovascular: regular rate and rhythm Gastrointestinal: non-tender, soft Musculoskeletal: muscle weakness (generalized) Extremities: edema (trace/B) Neurological: lethargic Results Result Diagram: 08/09/1651908/09/16519 Results 24 hrs Laboratory Tests Test 08/09/16 05:20 White Blood Count 8.1 Red Blood Count 3.60 L Hemoglobin 9.7 L Hematocrit 31.1 L Mean Corpuscular Volume 86.4 Mean Corpuscular Hemoglobin 26.9 L Mean Corpuscular Hemoglobin Concent 31.2 L Red Cell Distribution Width 22.6 H Platelet Count 110 L Mean Platelet Volume Neutrophils % 85.8 H Lymphocytes % 5.2 L Monocytes % 7.3 Eosinophils % 0.4 Basophils % 0.2 Nucleated Red Blood Cells % 0.0 Neutrophils # 6.9 Lymphocytes # 0.4 L Monocytes # 0.6 Eosinophils # 0.0 Basophils # 0.0 Nucleated Red Blood Cells # 0.0 Sodium Level 140 Potassium Level 3.9 Chloride Level 105 Carbon Dioxide Level 25 Anion Gap 14 Blood Urea Nitrogen 35 H Creatinine 1.14 H Glucose Level 174 Calcium Level 8.4 Magnesium Level 1.9 Medications Medications Current Medications Amiodarone HCl (Cordarone) 200 mg DAILY PO Last administered on 08/09/16 08:56 ; Admin Dose 200 MG; Start 08/08/16 at 09:00 Apixaban (Eliquis) 2.5 mg BID PO Last administered on 08/09/16 08:57; Admin Dose 2.5 MG; Start 08/07/16 at 21:00 Digoxin (Digoxin) 0.125 mg DAILY@13 PO Last administered on 08/09/16 14:43; Admin Dose 0.125 MG; Start 08/08/16 at 13:00 Ferrous Sulfate (Ferrous Sulfate (Ec)) 325 mg BID PO Last administered on 08:57; Admin Dose 325 MG; Start 08/07/16 at 21:00 Losartan Potassium (Cozaar) 50 mg DAILY PO Last administered on 08/09/16 08:57 ; Admin Dose 50 MG; Start 08/08/16 at 09:00 Potassium Chloride (Micro-K) 8 meq BID PO Last administered on 08/09/16 08:57; Admin Dose 8 MEQ; Start 08/07/16 at 21:00 Atorvastatin Calcium (Lipitor) 40 mg DAILY@21 PO Last administered on 08/08/16 20:36; Admin Dose 40 MG; Start 08/07/16 at 21:00 Lorazepam (Ativan) 0.5 mg Q6H PRN IV ANXIETY Last administered on 08/08/16 20: 37; Admin Dose 0.5 MG; Start 08/07/16 at 14:30 Ondansetron HCl (Zofran Inj) 4 mg Q6H PRN IV NAUSEA AND/OR VOMITING Last administered on 08/07/16 15:41; Admin Dose 4 MG; Start 08/07/16 at 14:30 Nitroglycerin (Nitroglycerin (Sl Tab) 0.4 Mg) 1 tab Q5M PRN SL CHEST PAIN; Start 08/07/16 at 14:30 Acetaminophen (Tylenol Tab) 650 mg Q6H PRN PO PAIN LEVEL 1-3 OR FEVER; Start at 14:30 Acetaminophen (Tylenol Supp) 650 mg Q6H PRN [place] PAIN LEVEL 1-3 OR FEVER; Start 08/07/16 at 14:30 Acetaminophen/ Hydrocodone Bitart ([place] (5/325)) 1 tab Q6H PRN PO PAIN LEVEL 4 -6 Last administered on 08/08/16 01:18; Admin Dose 1 TAB; Start 08/07/16 at 14:30 Docusate Sodium (Colace) 100 mg Q12H PRN PO CONSTIPATION; Start 08/07/16 at 14: 30 Bisacodyl 10 mg 10 mg DAILY PRN OR CONSTIPATION; Start 08/07/16 at 14:30 Clindamycin HCl/ Dextrose (Cleocin 600 Mg/ D5W (Pmx)) 50 ml @ 50 mls/hr Q8 IVPB Last administered on 08/09/16 14:43; Admin Dose 50 MLS/HR; Start 08/07/16 at 22 :00 Lactobacillus Acidophilus/ Rhamnosus (Culturelle) 1 cap BID PO Last administered on 08/09/16 08:56; Admin Dose 1 CAP; Start 08/07/16 at 21:00 Metoprolol Succinate (Toprol Xl) 25 mg BID PO Last administered on 08/09/16 08: 57; Admin Dose 25 MG; Start 08/07/16 at 21:00 Morphine Sulfate 2 mg 2 mg Q4H PRN IV PAIN LEVEL 7-10 Last administered on 06:17; Admin Dose 2 MG; Start 08/08/16 at 06:30 Vancomycin HCl/ Sodium Chloride (Vancocin/NS) 250 ml @ 83.333 mls/ hr Q24H IVPB Last administered on 08/09/16t 06:42; Admin Dose 83.333 MLS/HR; Start at 07:00 MATHEW AMADO Aug 09, 2016 15:29
--- NOTE | 2016-08-09 17:41 | PN ---
Date/Time of Note Date/Time of Note DATE: 08/09/16 TIME: 17:37 Assessment/Plan VTE Prophylaxis VTE Prophylaxis Intervention: other Lines/Catheters IV [facility] Type [facility] Urinary Cath still in place: No Assessment/Plan Chief Complaint/Hosp Course ASSESSMENT AND PLAN: 1. Low-back pain. We will obtain CT of lumbar sacral , physical therapy, pain medication via morphine and [place]. 2. Atrial fibrillation. Continue digoxin, Eliquis, and amiodarone. Cardiology has been consulted. Obtain 2D echocardiogram 3. Essential hypertension. Continue losartan and metoprolol. 4. Dyslipidemia. Continue Crestor. 5. Cardiomyopathy with ejection fraction 25%, with stage III-IV diastolic dysfunction. Cardiology has been consulted. Continue Losartan, give the patient IV Lasix, follow cardiology recommendations. 6. Thrombocytopenia, chronic. There is no evidence of bleeding. Continue to monitor. We will follow up cardiology recommendation regarding continued Eliquis in this patient who has history of thrombocytopenia. 7. Hypothyroidism. Continue levothyroxine. 8. bacteremia. With Gram positive cocci in pairs, chain & clusters Continue clindamycin and vancomycin Infectious disease doctor has been consulted, follow up sensitivity 9. Urinary tract infection. Continue IV antibiotics We will continue to monitor patient closely. Further recommendations, management, and treatment as per clinical course. PT OT eval and treat litigation services manager for jail facility placement versus acute rehab Problems: Subjective 24 Hr Interval Summary Free Text/Dictation Patient denies any chest pain or shortness of breath Complains of having low back pain No nausea vomiting diarrhea Tolerating oral intake Exam/Review of Systems Vital Signs Vitals Vital Signs Date Time Temp Pulse Resp B/P Pulse Ox O2 Delivery O2 Flow Rate FiO2 08/09/16 16:29 80 08/09/16 16:24 97.8 20 116/58 92 08/09/16 08:00 2.0 08/07/16 19:25 Nasal Cannula Intake and Output 08/08/16 08/08/16 08/09/16 15:00 23:00 07:00 Intake Total 550 ml 250 ml Balance 550 ml 250 ml Exam General: The patient is moderately overweight, Not in acute distress. HEENT: Atraumatic, normocephalic. The pupils are equal and round . Neck: Supple Chest: Normal Lungs: Clear to auscultation bilaterally Heart: Normal S1-S2, Regular rhythm and rate. 2/6 systolic murmur Abdomen: Soft , nontender, nondistended , bowel sounds are present. Extremities: Normal to inspection, no edema no cyanosis Neurologic: Normal mental status,The patient is awake, alert and oriented . Results Result Diagram: 08/09/16 0520 08/09/16 0520 Results 24 hrs Laboratory Tests Test 08/09/16 05:20 White Blood Count 8.1 Red Blood Count 3.60 L Hemoglobin 9.7 L Hematocrit 31.1 L Mean Corpuscular Volume 86.4 Mean Corpuscular Hemoglobin 26.9 L Mean Corpuscular Hemoglobin Concent 31.2 L Red Cell Distribution Width 22.6 H Platelet Count 110 L Mean Platelet Volume Neutrophils % 85.8 H Lymphocytes % 5.2 L Monocytes % 7.3 Eosinophils % 0.4 Basophils % 0.2 Nucleated Red Blood Cells % 0.0 Neutrophils # 6.9 Lymphocytes # 0.4 L Monocytes # 0.6 Eosinophils # 0.0 Basophils # 0.0 Nucleated Red Blood Cells # 0.0 Sodium Level 140 Potassium Level 3.9 Chloride Level 105 Carbon Dioxide Level 25 Anion Gap 14 Blood Urea Nitrogen 35 H Creatinine 1.14 H Glucose Level 174 Calcium Level 8.4 Magnesium Level 1.9 Medications Medications Current Medications Amiodarone HCl (Cordarone) 200 mg DAILY PO Last administered on 08/09/16 08:56 ; Admin Dose 200 MG; Start 08/08/16 at 09:00 Apixaban (Eliquis) 2.5 mg BID PO Last administered on 08/09/16 08:57; Admin Dose 2.5 MG; Start 08/07/16 at 21:00 Digoxin (Digoxin) 0.125 mg DAILY@13 PO Last administered on 08/09/16 14:43; Admin Dose 0.125 MG; Start 08/08/16 at 13:00 Ferrous Sulfate (Ferrous Sulfate (Ec)) 325 mg BID PO Last administered on 08:57; Admin Dose 325 MG; Start 08/07/16 at 21:00 Losartan Potassium (Cozaar) 50 mg DAILY PO Last administered on 08/09/16 08:57 ; Admin Dose 50 MG; Start 08/08/16 at 09:00 Potassium Chloride (Micro-K) 8 meq BID PO Last administered on 08/09/16 08:57; Admin Dose 8 MEQ; Start 08/07/16 at 21:00 Atorvastatin Calcium (Lipitor) 40 mg DAILY@21 PO Last administered on 08/08/16 20:36; Admin Dose 40 MG; Start 08/07/16 at 21:00 Lorazepam (Ativan) 0.5 mg Q6H PRN IV ANXIETY Last administered on 08/08/16 20: 37; Admin Dose 0.5 MG; Start 08/07/16 at 14:30 Ondansetron HCl (Zofran Inj) 4 mg Q6H PRN IV NAUSEA AND/OR VOMITING Last administered on 08/07/16 15:41; Admin Dose 4 MG; Start 08/07/16 at 14:30 Nitroglycerin (Nitroglycerin (Sl Tab) 0.4 Mg) 1 tab Q5M PRN SL CHEST PAIN; Start 08/07/16 at 14:30 Acetaminophen (Tylenol Tab) 650 mg Q6H PRN PO PAIN LEVEL 1-3 OR FEVER; Start at 14:30 Acetaminophen (Tylenol Supp) 650 mg Q6H PRN [place] PAIN LEVEL 1-3 OR FEVER; Start 08/07/16 at 14:30 Acetaminophen/ Hydrocodone Bitart ([place] (5/325)) 1 tab Q6H PRN PO PAIN LEVEL 4 -6 Last administered on 08/08/16 01:18; Admin Dose 1 TAB; Start 08/07/16 at 14:30 Docusate Sodium (Colace) 100 mg Q12H PRN PO CONSTIPATION; Start 08/07/16 at 14: 30 Bisacodyl 10 mg 10 mg DAILY PRN [place] CONSTIPATION; Start 08/07/16 at 14:30 Clindamycin HCl/ Dextrose (Cleocin 600 Mg/ D5W (Pmx)) 50 ml @ 50 mls/hr Q8 IVPB Last administered on 08/09/16 14:43; Admin Dose 50 MLS/HR; Start 08/07/16 at 22 :00 Lactobacillus Acidophilus/ Rhamnosus (Culturelle) 1 cap BID PO Last administered on 08/09/16 08:56; Admin Dose 1 CAP; Start 08/07/16 at 21:00 Metoprolol Succinate (Toprol Xl) 25 mg BID PO Last administered on 08/09/16 08: 57; Admin Dose 25 MG; Start 08/07/16 at 21:00 Morphine Sulfate 2 mg 2 mg Q4H PRN IV PAIN LEVEL 7-10 Last administered on 06:17; Admin Dose 2 MG; Start 08/08/16 at 06:30 Vancomycin HCl/ Sodium Chloride (Vancocin/NS) 250 ml @ 83.333 mls/ hr Q24H IVPB Last administered on 08/09/16 06:42; Admin Dose 83.333 MLS/HR; Start at 07:00 NACHO DAVE MD Aug 09, 2016 17:41
--- NOTE | 2016-08-09 18:09 | CONS ---
DATE OF ADMISSION: 08/07/2016 DATE OF CONSULTATION: 08/09/2016 TYPE OF CONSULTATION: Infectious Disease. REASON FOR CONSULTATION: Antibiotic management. HISTORY OF PRESENT ILLNESS: Wilton Albrecht is a 76-year-old female who comes in with back pain an d lower extremity edema. Her past problems include: 1. Congestive heart failure. 2. Cardiomyopathy with ejection fraction 25%. 3. Stage III to IV diastolic dysfunction. 4. Severe aortic stenosis. 5. Pulmonary hypertension. 6. Hypothyroidism. 7. Status post pacemaker status. 8. Atrial fibrillation. 9. Normocytic anemia and thrombocytopenia. The patient had positive blood cultures for gram-positive cocci in pairs and chains, with alpha hemo lytic Strep and Strep viridans. She was in the hospital on 07/30 and signed out 08/04/2016. The pa tient has now having decreased urinary output, increased back pain, lower extremity swelling and henrietta ma, without shortness of breath. The patient was brought to the emergency room for her back pain. White count within normal limits, platelet count is 87,000. BUN and creatinine are 30/1.36. Patien t denies chest pain, shortness of breath, nausea, vomiting, diarrhea. On admission, her white count was 7.1; H and H of 10.4 and 32.6; platelet count 87,000. Urinalysis was negative. BUN and creati nine 30/1.06. PAST MEDICAL HISTORY: Operations, as outlined; she is on Eliquis. FAMILY HISTORY: Noncontributory. SOCIAL HISTORY: She lives at home with her daughter. She does not smoke, drink or abuse drugs. ALLERGIES: LISINOPRIL. MEDICATIONS: Per chart. REVIEW OF SYSTEMS: As per HPI. PHYSICAL EXAMINATION GENERAL: The patient is a well-developed, well-nourished, elderly female who is alert, responsive, in no acute distress. VITAL SIGNS: Stable. She is afebrile. SKIN: Without generalized rash. HEENT: Within normal limits. NECK: Supple. LYMPHATIC: Lymph nodes, none palpable. CHEST: Decreased breath sounds at the bases. HEART: Grade III/ systolic ejection murmur at the apex, irregular rhythm. ABDOMEN: Soft, nontender, without organosplenomegaly or masses. EXTREMITIES: Without cyanosis, clubbing. There is 2+ edema in bilateral lower extremities. There is some ecchymosis in the upper extremities. RECTAL: Deferred. GENITAL: Deferred. NEUROLOGIC: No focal neurological abnormalities. IMPRESSION AND PLAN: The patient presents with a history of alpha hemolytic Streptococcus and Strep tococcus viridans in her blood from previous admission and now has low back pain. We have to worry about the possibility of diskitis. A deep venous thrombosis study shows no evidence of deep venous thrombosis. Chest x-ray, she has an AICD, worsening interstitial prominence that may represent erika a versus interstitial pneumonia, stable cardiomegaly. CT scan of the abdomen and pelvis persistent mild hepatomegaly with cirrhotic changes, increased gross splenomegaly with the area of decreased at tenuation seen within the anterosuperior spleen - possibly an infarct, interval development of small amount of free intraperitoneal fluid with no free air evident. No evidence of bowel obstruction or inflammation with normal vermiform appendix. Perinephric stranding is noted. Diffuse ground glass infiltrates within the lung bases. She has a pacemaker. Degenerative changes with grade I anterol isthesis at L4-L5 and associated with degenerative facet joint. Chest x-ray on the 4th showed worse appearance. Her white count today is 8.1. BUN and creatinine are 35/1.14. Urine is negative. Digoxin 1.4. Th e patient was started on vancomycin. She is on vancomycin and clindamycin. Microbiology shows gram -positive cocci in pairs and clusters and urine mixed gram-positive organisms. The patient was seen by both Dr. Carmona and Dr. East. Congestive failure with ejection fraction of 25%, and by Dr. East, we have to consider the possibility of endocarditis. She needs a 2D ech ocardiogram. She also needs an MRI of the lumbosacral spine. I will dictate my findings to the aforementioned physicians. Dictated By: ARMAND COELHO MD, JD/JARRELL Conf#: [id number] DID#: [id number]
[2016-08-09] MEDS: ATORVASTATIN 40 MG TAB PO SCH (20:09)
[2016-08-09] MEDS: LORAZEPAM 2 MG INJ IV PRN (22:48)
[2016-08-10] VITALS (11 sets, daily range): BP systolic 105–155; BP diastolic 57–73; PULSE 79–80; RESP 18–19
[2016-08-10] MEDS: LEVOTHYROXINE 100 MCG TAB PO SCH (06:15)
[2016-08-10] MEDS: VANCOMYCIN 1.25 GM in SOD CHLORIDE 0.9% 250 ML IVPB SCH (06:15)
[2016-08-10] MEDS: FUROSEMIDE 40 MG INJ IV SCH ×2 (06:16→17:21)
--- NOTE | 2016-08-10 07:14 | RADRPT ---
PROCEDURE: CT Lumbar Spine without contrast. CLINICAL INDICATION: Lower back pain. TECHNIQUE: Noncontrast CT of the lumbar spine was performed with multiplanar reformatted images gen erated from the axial acquired data. The administered radiation dose was CTDI vol = 38.41 mGy, DLP = 1013.86 mGy-cm. One or more of the following dose reduction techniques were used: Automated exposu re control, Adjustment of the mA and/or kV according to patient size, or Use of iterative reconstruc tion technique. COMPARISON: There are no similar studies submitted for comparison. FINDINGS: There is normal lumbar lordosis. The vertebral body heights are maintained. There is no destructive osseous lesion. There is no acute fracture. T11-T12: There is mild disk space narrowing. There is a 1 mm broad-based disk bulge and mild bilat eral facet arthropathy without spinal canal or bilateral foraminal stenosis. T12-L1 : There is mild disk space narrowing. There is a 2 mm broad-based disk bulge and mild bilate ral facet arthropathy and ligamentum flavum infolding without spinal canal or bilateral foraminal st enosis. L1-L2 : There is a 1 mm broad-based disk bulge and mild bilateral facet arthropathy without spinal c anal or bilateral foraminal stenosis. L2-L3 : There is mild disk space narrowing. There is 1 mm anterolisthesis with a broad-based pseudo disk bulge with moderate bilateral facet arthropathy and ligamentum flavum infolding causing mild s richard canal stenosis. There is mild right without left foraminal stenosis. L3-L4 : There is a 2 mm broad-based disk bulge with moderate bilateral facet arthropathy and ligamen bahman flavum infolding without spinal canal stenosis. There is mild right without left foraminal sten osis. L4-L5 : There is 2 mm of grade 1 anterolisthesis with a circumferential pseudo disk bulge with sever e bilateral facet arthropathy and ligamentum flavum infolding causing severe spinal canal stenosis. There is mild to moderate bilateral foraminal stenosis. L5-S1 : There is moderate disk space narrowing with vacuum disk phenomenon. There is a 4 mm circumf erential disk bulge with moderate bilateral facet arthropathy with moderate spinal canal stenosis. There is moderate to severe bilateral foraminal stenosis impinging the exiting bilateral L5 nerve ro ots. The sacroiliac joints are intact. IMPRESSION: 1. No acute fracture. 2. L4-L5 grade 1 anterolisthesis with a circumferential pseudo disk bulge with severe spinal canal s tenosis. There is mild to moderate bilateral foraminal stenosis. 3. L5-S1 circumferential disk bulge with moderate spinal canal stenosis. There is moderate to mirna re bilateral foraminal stenosis impinging the exiting bilateral L5 nerve roots. Further findings as detailed above. RPTAT: PP .Demario Barber MD, Date Time Electronically viewed and signed by .Demario Barber MD, on 08/10/2016 07:14 .F/
[2016-08-10] MEDS: APIXABAN 5 MG TABLET PO SCH ×2 (08:49→20:02)
[2016-08-10] MEDS: POTASSIUM CHLORIDE (SR) 8 MEQ CAP PO SCH ×2 (08:49→20:02)
[2016-08-10] MEDS: AMIODARONE 200 MG TAB PO SCH (08:49)
[2016-08-10] MEDS: LOSARTAN 50 MG TAB PO SCH (08:50)
[2016-08-10] MEDS: FERROUS SULFATE (EC) 325 MG TAB PO SCH ×2 (08:50→20:02)
[2016-08-10] MEDS: METOPROLOL (XL) 25 MG TAB PO SCH ×2 (08:50→20:03)
[2016-08-10] MEDS: LACTOBACILLUS RHAMNOSUS CAP PO SCH ×2 (08:50→20:02)
[2016-08-10] MEDS ORDERED: GLUCOSE GEL 15 GRAM TUBE PO PRN ×2 (11:00)
[2016-08-10] MEDS ORDERED: GLUCAGON 1 MG INJ IM PRN (11:00)
[2016-08-10] MEDS ORDERED: GLUCOSE GEL 15 GRAM TUBE BUCCAL PRN (11:00)
[2016-08-10] MEDS ORDERED: DEXTROSE 50% 50 ML SYRINGE IV PRN ×2 (11:00)
[2016-08-10] MEDS: metFORMIN 500 MG TAB PO SCH ×2 (11:52→17:21)
[2016-08-10] MEDS: DIGOXIN 0.125 MG TAB PO SCH (13:36)
--- NOTE | 2016-08-10 16:12 | PN ---
DATE: 08/10/2016 SUBJECTIVE: No events overnight. No fevers. The patient is sitting in a chair. Looks comfortable . Denies pain, no fevers. No labs this morning. MICROBIOLOGY: Blood culture growing hemolytic strep species. Urinalysis was negative. DIAGNOSTICS: The patient had a chest x-ray on admission that revealed edema versus interstitial pne umonia. The patient had also AICD. Lumbar spine from yesterday revealed no acute fracture, diskiti s or abscess. Chest x-ray repeated on 08/09/2015 revealed worse appearance of the lungs. CT of the abdomen and pelvis on admission revealed hepatomegaly with cirrhotic change. No evidence of bowel obstruction. ANTIMICROBIALS: The patient is on: 1. IV vancomycin. 2. Status post clindamycin. PHYSICAL EXAMINATION: GENERAL: This is an obese, well-developed, elderly woman who is awake, in no distress. HEENT: Head atraumatic, normocephalic. Sclerae anicteric. Buccal mucosa dry. NECK: Supple, trachea midline. CHEST: Rise symmetrical. Breath sounds diminished to bases. HEART: S1, S2. ABDOMEN: Soft, bowel sounds present. EXTREMITIES: Without cyanosis. ASSESSMENT: 1. Streptococcus bacteremia, possibly secondary to pneumonia. Rule out vegetations. The patient h ad 2D echo on 07/30/2016 that actually was negative for vegetations. 2. Cardiomyopathy with ejection fraction of 25%. 3. Severe aortic stenosis. 4. Congestive heart failure, rule out pneumonia. 5. History of permanent pacemaker and atrial fibrillation. 6. Acute renal failure. PLAN: We are going to change antibiotics to IV Rocephin. Repeat blood cultures in 24 hours. Follo w chest x-rays. Check her urine culture as the specimen was contaminated. Follow recommendations o f consultants. Dictated By: ANGELINA GAMEZ THEATRE INSTRUCTOR for ARMAND ALVARES/NTS Conf#: [id number] DID#: [id number]
--- NOTE | 2016-08-10 16:13 | PN ---
Date/Time of Note Date/Time of Note DATE: 08/10/16 TIME: 16:10 Assessment/Plan VTE Prophylaxis VTE Prophylaxis Intervention: SCD's Lines/Catheters IV Catheter Type (from Nrs): Saline Lock Urinary Cath still in place: No Assessment/Plan Chief Complaint/Hosp Course ASSESSMENT AND PLAN: 1. Low-back pain. No evidence of osteomyelitis and infection on CT of the lumbar sacral, positive for moderate spinal canal stenosis , physical therapy, pain medication via morphine and [place]. 2. Atrial fibrillation. Continue digoxin, Eliquis, and amiodarone. Cardiology has been consulted. Obtain 2D echocardiogram 3. Essential hypertension. Continue losartan and metoprolol. 4. Dyslipidemia. Continue Crestor. 5. Cardiomyopathy with ejection fraction 25%, with stage III-IV diastolic dysfunction. Cardiology has been consulted. Continue Losartan, give the patient IV Lasix, follow cardiology recommendations. 6. Thrombocytopenia, chronic. There is no evidence of bleeding. Continue to monitor. We will follow up cardiology recommendation regarding continued Eliquis in this patient who has history of thrombocytopenia. 7. Hypothyroidism. Continue levothyroxine. 8. bacteremia. With Gram positive cocci in pairs, chain & clusters, obtain 2D echocardiogram Continue clindamycin and vancomycin Infectious disease doctor has been consulted, follow up sensitivity 9. Urinary tract infection. Continue IV antibiotics We will continue to monitor patient closely. Further recommendations, management, and treatment as per clinical course. PT OT eval and treat natural resources manager for [facility] facility placement versus acute rehab Problems: Subjective 24 Hr Interval Summary Free Text/Dictation No acute changes Patient continues to complain of having low back pain No nausea vomiting diarrhea Minimal p.o. intake Exam/Review of Systems Vital Signs Vitals Vital Signs Date Time Temp Pulse Resp B/P Pulse Ox O2 Delivery O2 Flow Rate FiO2 08/10/16 15:53 97.7 80 19 105/57 91 08/09/16 19:46 4.0 08/07/16 19:25 Nasal Cannula Intake and Output 08/09/16 08/09/16 08/10/16 14:59 22:59 06:59 Intake Total 50 ml 240 ml Balance 50 ml 240 ml Exam General: The patient is moderately overweight, Not in acute distress. HEENT: Atraumatic, normocephalic. The pupils are equal and round . Neck: Supple with full range of motion. Chest: Normal expansion of the thorax during inspiration Lungs: Clear to auscultation bilaterally Heart: Normal S1-S2, Regular rhythm and rate. Abdomen: Soft , nontender, nondistended , bowel sounds are present. Extremities: Normal to inspection, +1 edema no cyanosis Neurologic: ,The patient is awake, alert Results Result Diagram: 08/09/16 0520 08/09/16 0520 Results 24 hrs Laboratory Tests Test 08/09/16 21:27 08/10/16 11:39 08/10/16 12:03 Bedside Glucose 201 232 H Hemoglobin A1c 5.9 Medications Medications Current Medications Amiodarone HCl (Cordarone) 200 mg DAILY PO Last administered on 08/10/16 08:49 ; Admin Dose 200 MG; Start 08/08/16 at 09:00 Apixaban (Eliquis) 2.5 mg BID PO Last administered on 08/10/16 08:49; Admin Dose 2.5 MG; Start 08/07/16 at 21:00 Digoxin (Digoxin) 0.125 mg DAILY@13 PO Last administered on 08/10/16 13:36; Admin Dose 0.125 MG; Start 08/08/16 at 13:00 Ferrous Sulfate (Ferrous Sulfate (Ec)) 325 mg BID PO Last administered on 08:50; Admin Dose 325 MG; Start 08/07/16 at 21:00 Losartan Potassium (Cozaar) 50 mg DAILY PO Last administered on 08/10/16 08:50 ; Admin Dose 50 MG; Start 08/08/16 at 09:00 Potassium Chloride (Micro-K) 8 meq BID PO Last administered on 08/10/16 08:49; Admin Dose 8 MEQ; Start 08/07/16 at 21:00 Atorvastatin Calcium (Lipitor) 40 mg DAILY@21 PO Last administered on 08/09/16 20:09; Admin Dose 40 MG; Start 08/07/16 at 21:00 Lorazepam (Ativan) 0.5 mg Q6H PRN IV ANXIETY Last administered on 08/09/16 22: 48; Admin Dose 0.5 MG; Start 08/07/16 at 14:30 Ondansetron HCl (Zofran Inj) 4 mg Q6H PRN IV NAUSEA AND/OR VOMITING Last administered on 08/07/16 15:41; Admin Dose 4 MG; Start 08/07/16 at 14:30 Nitroglycerin (Nitroglycerin (Sl Tab) 0.4 Mg) 1 tab Q5M PRN SL CHEST PAIN; Start 08/07/16 at 14:30 Acetaminophen (Tylenol Tab) 650 mg Q6H PRN PO PAIN LEVEL 1-3 OR FEVER; Start at 14:30 Acetaminophen (Tylenol Supp) 650 mg Q6H PRN [place] PAIN LEVEL 1-3 OR FEVER; Start 08/07/16 at 14:30 Acetaminophen/ Hydrocodone Bitart ([place] (5/325)) 1 tab Q6H PRN PO PAIN LEVEL 4 -6 Last administered on 08/08/16 01:18; Admin Dose 1 TAB; Start 08/07/16 at 14:30 Docusate Sodium (Colace) 100 mg Q12H PRN PO CONSTIPATION; Start 08/07/16 at 14: 30 Bisacodyl (Dulcolax Supp) 10 mg DAILY PRN [place] CONSTIPATION; Start 08/07/16 at 14: 30 Lactobacillus Acidophilus/ Rhamnosus (Culturelle) 1 cap BID PO Last administered on 08/10/16 08:50; Admin Dose 1 CAP; Start 08/07/16 at 21:00 Metoprolol Succinate (Toprol Xl) 25 mg BID PO Last administered on 08/10/16 08: 50; Admin Dose 25 MG; Start 08/07/16 at 21:00 Morphine Sulfate (morphine) 2 mg Q4H PRN IV PAIN LEVEL 7-10 Last administered on 08/08/16 06:17; Admin Dose 2 MG; Start 08/08/16 at 06:30 Miscellaneous Information 1 ea NOTE XX ; Start 08/10/16 at 11:00 Glucose (Glutose) 15 gm Q15M PRN PO DECREASED GLUCOSE; Start 08/10/16 at 11:00 Glucose (Glutose) 22.5 gm Q15M PRN PO DECREASED GLUCOSE; Start 08/10/16 at 11:00 Dextrose (D50w Syringe) 25 ml Q15M PRN IV DECREASED GLUCOSE; Start 08/10/16 at 11:00 Dextrose (D50w Syringe) 50 ml Q15M PRN IV DECREASED GLUCOSE; Start 08/10/16 at 11:00 Glucagon (Glucagen) 1 mg Q15M PRN IM DECREASED GLUCOSE; Start 08/10/16 at 11:00 Glucose (Glutose) 15 gm Q15M PRN BUCCAL DECREASED GLUCOSE; Start 08/10/16 at 11: 00 Miscellaneous Information 1 ONCE ONCE XX ; Start 08/11/16 at 06:00; Stop at 06:01 Ceftriaxone Sodium (Rocephin) 50 ml @ 100 mls/hr Q24H IVPB ; Start 08/10/16 at 16:00 NACHO DAVE MD Aug 10, 2016 16:13
[2016-08-10] MEDS: CEFTRIAXONE 1 GM/50 ML (PMX) 50 ML IVPB SCH (16:42)
[2016-08-10] MEDS: INSULIN ASPART [NOVOLOG] 3 ML PEN SC SCH ×2 (17:41→19:52)
[2016-08-10] MEDS: ATORVASTATIN 40 MG TAB PO SCH (20:02)
--- NOTE | 2016-08-10 21:22 | RADRPT ---
Echocardiogram Report Patient Name: TAMARA BERNSTEIN Gender: Female Date: 1940 Study Date: 10-Aug-2016 Marine Mammal Trainer: ELLIE Location: I Ref. Physician: ARMNAD COELHO Quality: Good Procedures: Transthoracic echocardiogram examination. Indications: Endocarditis. 2D/M Mode Doppler Measurement Value Normal Range Measurement Value Normal Range LVIDd 2D 4.6 3.5 - 5.6 cm STEFAN Vmax 1.0 cm2 LVIDs 2D 3.2 2.1 - 4.1 cm STEFAN VTI 1.2 cm2 FS 2D 30.7 % AV Mean Ashutosh 2.6 m/sec LVPWd 2D 1.1 0.6 - 1.1 cm AV Mean PG 31.0 mmHg IVSd 2D 1.1 0.6 - 1.1 cm AV Peak Ashutosh 3.7 m/sec IVS/LVPW 2D 1.0 AV Peak PG 53.0 mmHg AoR Diam 2D 1.7 2.0 - 3.7 cm AV VTI 78.4 cm LA/Ao 2D 2 0 - 1 AI Peak PG 71.0 mmHg EDV 2D 99.3 cm3 AI Peak Ashutosh 4.2 m/sec ESV 2D 33.1 cm3 LVOT Mean Ashutosh 1.0 m/sec LA Dimen 2D 4.1 2.3 - 4.0 cm LVOT Mean PG 5.0 mmHg LVOT Diam 1.8 cm LVOT Peak Ashutosh 1.5 m/sec LVOT Area 2.5 cm2 LVOT Peak PG 9.0 mmHg LVOT VTI 38.1 cm MV E Peak Ashutosh 0.8 m/sec TR Peak Ashutosh 3.0 m/sec TR Peak PG 36.0 mmHg Findings Left Ventricle: Mild concentric left ventricular hypertrophy. The left ventricular ejection fraction is visually estimated at 30 %. Right Ventricle: Pacemaker wire noted in the right heart. Left Atrium: There is mild enlargement of left atrium. Mitral Valve: Mild mitral annular calcification. Mild to moderate mitral regurgitation. Aortic Valve: Moderate to severe aortic stenosis. Aortic cusps appear moderately calcified. Mild to moderate aortic regurgitation. Tricuspid Valve: There is mild tricuspid regurgitation. Conclusions 1.Limited echo. 2.Mild concentric left ventricular hypertrophy. The left ventricular ejection fraction is visually estimated at 30 %. 3.Pacemaker wire noted in the right heart. 4.There is mild enlargement of left atrium. 5.Mild mitral annular calcification. Mild to moderate mitral regurgitation. 6.Moderate to severe aortic stenosis. Aortic cusps appear moderately calcified. Mild to moderate aortic regurgitation. 7.There is mild tricuspid regurgitation. 8.No definite vegetations noted on any of the well visualized valvular apparati but given focal thickening/calcification of valves cannot completely rule out. For ongoing concern consider FELIPA. Electronically Signed By: Anthony East 10-Aug-2016 21:22:13 -0700 Patient Name: TAMARA BERNSTEIN Study Date: 10-Aug-2016 [id number]
[2016-08-11] VITALS (9 sets, daily range): BP systolic 119–137; BP diastolic 61–68; PULSE 79–80; RESP 17–20
[2016-08-11] MEDS ORDERED: ACCU-CHEK XX SCH (02:00)
[2016-08-11] MEDS: FUROSEMIDE 40 MG INJ IV SCH (05:54)
[2016-08-11] MEDS: LEVOTHYROXINE 100 MCG TAB PO SCH (05:57)
[2016-08-11] MEDS ORDERED: PHENAZOPYRIDINE 200 MG TAB PO PRN ×2 (06:00→09:30)
[2016-08-11] MEDS: INSULIN ASPART [NOVOLOG] 3 ML PEN SC SCH ×2 (08:00→12:18)
[2016-08-11 08:32] LABS: ADD SCAN DIFF NO
[2016-08-11 08:35] LABS: ABNORMAL IP MESSAGE 1; BASOPHILS % 0.2 % (0.0-2.0); EOSINOPHILS # 0.1 10^3/ul (0.0-0.5); HEMATOCRIT 31.1 % (37.0-47.0); HEMOGLOBIN 9.5 g/dl (12.0-16.0); LYMPHOCYTES # 0.5 10^3/ul (0.8-2.9); LYMPHOCYTES % 10.4 % (15.0-51.0); MEAN CORPUSCULAR HEMOGLOBIN 26.8 pg (29.0-33.0); MEAN CORPUSCULAR HGB CONC 30.5 g/dl (32.0-37.0); MEAN CORPUSCULAR VOLUME 87.6 fl (82.0-101.0); MONOCYTE # 0.4 10^3/ul (0.3-0.9); MONOCYTES % 7.4 % (0.0-11.0); NEUTROPHIL # 4.2 10^3/ul (1.6-7.5); NEUTROPHILS % 80.2 % (39.0-77.0); PLATELET COUNT 103 10^3/UL (140-415); RED BLOOD COUNT 3.55 10^6/ul (4.20-5.40); RED CELL DISTRIBUTION WIDTH 22.6 % (11.5-14.5); WHITE BLOOD COUNT 5.2 10^3/ul (4.8-10.8)
[2016-08-11] MEDS: metFORMIN 500 MG TAB PO SCH (08:57)
[2016-08-11 08:58] LABS: CALCIUM 8.2 mg/dl (8.4-10.2); CREATININE 0.91 mg/dl (0.44-1.00); POTASSIUM 3.5 mmol/L (3.5-5.1)
[2016-08-11] MEDS: FERROUS SULFATE (EC) 325 MG TAB PO SCH (09:08)
[2016-08-11] MEDS: LACTOBACILLUS RHAMNOSUS CAP PO SCH (09:08)
[2016-08-11] MEDS: AMIODARONE 200 MG TAB PO SCH (09:09)
[2016-08-11] MEDS: METOPROLOL (XL) 25 MG TAB PO SCH (09:09)
[2016-08-11] MEDS: LOSARTAN 50 MG TAB PO SCH (09:10)
[2016-08-11] MEDS: APIXABAN 5 MG TABLET PO SCH (09:10)
[2016-08-11 10:14] LABS: CREATININE 0.97 mg/dl (0.44-1.00)
[2016-08-11] MEDS: POTASSIUM CHLORIDE (SR) 8 MEQ CAP PO SCH (11:11)
--- NOTE | 2016-08-11 12:04 | PDOCDIS ---
Discharge Instructions CONDITION Patient Condition: Good HOME CARE INSTRUCTIONS: Diet Instructions: Reduced SodiumSpecial Diet: low carb/ ACTIVITY: Activity Restrictions: Special Program Special Exercises NACHO DAVE MD Aug 11, 2016 12:04
[2016-08-11] MEDS ORDERED: METO25TA7 PO (12:08)
[2016-08-11] MEDS ORDERED: DOCU-216 PO (12:08)
[2016-08-11] MEDS ORDERED: ACET325T40 PO (12:08)
[2016-08-11] MEDS ORDERED: POTA8CAP PO (12:08)
[2016-08-11] MEDS ORDERED: LACT1CAP57 PO (12:08)
[2016-08-11] MEDS ORDERED: NIT4 SL (12:08)
[2016-08-11] MEDS ORDERED: PHEN-538 PO (12:08)
--- NOTE | 2016-08-11 13:49 | DS ---
DATE OF ADMISSION: 08/07/2016 DATE OF DISCHARGE: 08/11/2016 CONSULTANTS: 1. Anthony East. 2. Dr. Alford PROCEDURES: Echocardiogram, which demonstrated a mild conservative left ventricular hypertrophy. The left ventricle ejection fraction visually estimated at 30%. Pacemaker wire noted in the right h eart. There is a mild enlargement of left atrium. Mild annular calcification. Mild to moderate mi tral regurgitation, moderate to severe aortic stenosis. Aortic cusps appear moderately calcified. Mild to moderate aortic regurgitation. There is a mild tricuspid regurgitation. No definite vegeta tion noted of any of the well visualized valvular ____, but given focal thickening and calcificatio n of the valve, cannot be completed ruled out. DIAGNOSES: 1.. Low back pain, no evidence of osteomyelitis infection on CT of the lumbosacral. 2. Atrial fibrillation, rate controlled on digoxin, Eliquis and amiodarone. 3. Essential hypertension, well controlled ____. 4. Dyslipidemia. Continue Crestor. 5. Cardiomyopathy with ejection fraction 25%, stage III to IV diastolic dysfunction. Cardiology wa s consulted. Continue Lasix, losartan and metoprolol. 6. Thrombocytopenia, chronic, no evidence of bleeding. 7. Hypothyroidism. Continue levothyroxine. 8. Bacteremia/systemic inflammatory response syndrome, with gram-positive in pairs and cluster. No evidence of vegetation on 2D echocardiogram. Continue Rocephin and vancomycin. 11. Urinary tract infection, on IV antibiotics. MEDICATIONS: 1. Amiodarone. 2. Eliquis. 3. Digoxin. 4. Ferrous sulfate. 5. Levothyroxine. 6. Cozaar. 7. Potassium chloride. 8. Lipitor. 9. Lorazepam. 10. Zofran. 11. Nitroglycerin. 12. Tylenol. 13. [place] 14. Colace. 15. Culturelle. 16. Toprol XL. 17. Lasix. 18. Metformin. 19. Rocephin. 20. Vancomycin. ALLERGIES: LISINOPRIL. HOSPITAL COURSE: This is a 76-year-old female with past medical history of congestive heart failure , cardiomyopathy, ejection fraction 25%, stage III to IV diastolic dysfunction, aortic stenosis, pul monary hypertension, hypothyroidism, status post pacemaker, atrial fibrillation, normocytic anemia a nd thrombocytopenia was rushed to the hospital on 07/30/2016, signed out AMA on 08/04/2016. The pa juarez was found to have positive blood culture, gram-positive cocci in pairs and chain. The patient at home had decreased urine output, increased back pain, lower extremity swelling and edema and pricila rtness of breath with difficulty ambulating, was brought into the emergency room on 08/07/2016 by he r family. The patient was found to have elevated troponin of 0.62, second troponin 0.409, BUN of 30 , creatinine 1.36. Cardiology was consulted. Patient was placed on broad spectrum IV antibiotics. Blood culture was obtained. Infectious disease doctor was consulted. The first blood culture show ed gamma hemolytic strep with gram-positive cocci in pairs, chain and clusters and it was sensitive to cefazolin, ____ ,vancomycin, penicillin, erythromycin and clindamycin. Patient has been afebrile , has been seen and evaluated by cardiology for her elevated troponin. She has been asymptomatic, t he elevated troponin likely secondary to congestive heart failure exacerbation. Patient was diurese d with IV Lasix. Regarding her atrial fibrillation, it was rate controlled on digoxin, amiodarone a nd metoprolol. She has been placed on Eliquis for her anticoagulation. Regarding her hypothyroidis m, she has been continued on levothyroxine. In regard to her blood culture, a 2D echocardiogram was obtained which did not show any sign of vegetation. The patient has been seen and evaluated by car diology and infectious disease doctor. At this time, patient is afebrile with temperature of 98.3, pulse 83, respiration 18, blood pressure 137/65, oxygen saturation 100%. Diabetes mellitus. Hemoglobin A1c was normal at 5.7, has been continued on metformin. Her blood gl ucose is normal. Daily labs are as follows: Sodium 138, potassium 3.5, chloride 104, bicarbonate 28 , BUN 30, creatinine 0.91, glucose 119, calcium 8.2. WBC 5.3, hemoglobin 9.7, hematocrit 31, platel ets 103. CONDITION AT TIME OF DISCHARGE: Stable. The patient will be transferred to acute rehab versus [facility] nursing facility for continuation of IV antibiotics. Dictated By: NACHO KHANNA/NTS Conf#: [id number] DID#: [id number]
[2016-08-11] MEDS: DIGOXIN 0.125 MG TAB PO SCH (15:08)
[2016-08-11] MEDS: CEFTRIAXONE 1 GM/50 ML (PMX) 50 ML IVPB SCH (15:11)
--- NOTE | 2016-08-11 15:18 | RADRPT ---
Vent Rate: 80 bpm RR Interval: 0 msec [place] Interval: 0 msec QRS Duration: 204 msec QT Interval: 494 msec QTC Interval: 569 msec P-R-T [place]: 0 - -63 - 127 degrees Electronic ventricular pacemaker Electronically Signed By: Shay Carmona [id number]
--- NOTE | 2016-08-11 15:27 | CONS ---
Date/Time of Note Date/Time of Note DATE: 08/11/16 TIME: 15:25 Assessment/Plan Assessment/Plan Chief Complaint/Hosp Course SUBJECTIVE: No events overnight. No fevers. Looks comfortable. Denies pain, no fevers. tive. DIAGNOSTICS: The patient had a chest x-ray on admission that revealed edema versus interstitial pneumonia. The patient had also AICD. Lumbar spine from yesterday revealed no acute fracture, diskitis or abscess. Chest x-ray repeated on 08/09/2015 revealed worse appearance of the lungs. CT of the abdomen and pelvis on admission revealed hepatomegaly with cirrhotic change. No evidence of bowel obstruction. ANTIMICROBIALS: Rocephin PHYSICAL EXAMINATION: GENERAL: This is an obese, well-developed, elderly woman who is awake, in no distress. HEENT: Head atraumatic, normocephalic. Sclerae anicteric. Buccal mucosa dry. NECK: Supple, trachea midline. CHEST: Rise symmetrical. Breath sounds diminished to bases. HEART: S1, S2. ABDOMEN: Soft, bowel sounds present. EXTREMITIES: Without cyanosis. ASSESSMENT: 1. Streptococcus bacteremia, possibly secondary to pneumonia. 2D echo on 2016 and 08/09 was negative for vegetations. 2. Cardiomyopathy with ejection fraction of 25%. 3. Severe aortic stenosis. 4. Congestive heart failure, rule out pneumonia. 5. History of permanent pacemaker and atrial fibrillation. 6. Acute renal failure. PLAN: Stable, will repeat blood cultures, continue abx for 2 weeks, cardiology rec-s DW Dr [place] Problems: Consultation Date/Type/Reason Admit Date/Time Aug 07, 2016 at 10:54 Initial Consult Date Type of Consultation: ID Referring Provider: NACHO DAVE MD Exam/Review of Systems Vital Signs Vitals Vital Signs Date Time Temp Pulse Resp B/P Pulse Ox O2 Delivery O2 Flow Rate FiO2 08/11/16 12:10 80 08/11/16 11:28 98.3 18 137/65 100 08/11/16 07:48 Nasal Cannula 2.0 Intake and Output 08/10/16 08/10/16 08/11/16 15:00 23:00 07:00 Intake Total 650 ml Balance 650 ml Results Result Diagram: 08/11/16 0650 08/11/16 0650 Results 24 hrs Laboratory Tests Test 08/10/16 17:19 08/10/16 19:52 08/11/16 06:50 08/11/16 08:23 Bedside Glucose 180 184 126 White Blood Count 5.2 # Red Blood Count 3.55 L Hemoglobin 9.5 L Hematocrit 31.1 L Mean Corpuscular Volume 87.6 Mean Corpuscular Hemoglobin 26.8 L Mean Corpuscular Hemoglobin Concent 30.5 L Red Cell Distribution Width 22.6 H Platelet Count 103 L Mean Platelet Volume Neutrophils % 80.2 H Lymphocytes % 10.4 L Monocytes % 7.4 Eosinophils % 1.0 Basophils % 0.2 Nucleated Red Blood Cells % 0.0 Neutrophils # 4.2 Lymphocytes # 0.5 L Monocytes # 0.4 Eosinophils # 0.1 Basophils # 0.0 Nucleated Red Blood Cells # 0.0 Sodium Level 138 Potassium Level 3.5 Chloride Level 104 Carbon Dioxide Level 28 Anion Gap 10 Blood Urea Nitrogen 30 H Creatinine 0.91 Glucose Level 119 Calcium Level 8.2 L Test 08/11/16 11:49 Bedside Glucose 175 Medications Medications Current Medications Amiodarone HCl (Cordarone) 200 mg DAILY PO Last administered on 08/11/16 09:09 ; Admin Dose 200 MG; Start 08/08/16 at 09:00 Apixaban (Eliquis) 2.5 mg BID PO Last administered on 08/11/16 09:10; Admin Dose 2.5 MG; Start 08/07/16 at 21:00 Digoxin (Digoxin) 0.125 mg DAILY@13 PO Last administered on 08/11/16 15:08; Admin Dose 0.125 MG; Start 08/08/16 at 13:00 Ferrous Sulfate (Ferrous Sulfate (Ec)) 325 mg BID PO Last administered on 09:08; Admin Dose 325 MG; Start 08/07/16 at 21:00 Losartan Potassium (Cozaar) 50 mg DAILY PO Last administered on 08/11/16 09:10 ; Admin Dose 50 MG; Start 08/08/16 at 09:00 Potassium Chloride (Micro-K) 8 meq BID PO Last administered on 08/11/16 11:11; Admin Dose 8 MEQ; Start 08/07/16 at 21:00 Atorvastatin Calcium (Lipitor) 40 mg DAILY@21 PO Last administered on 08/10/16 20:02; Admin Dose 40 MG; Start 08/07/16 at 21:00 Lorazepam (Ativan) 0.5 mg Q6H PRN IV ANXIETY Last administered on 08/09/16 22: 48; Admin Dose 0.5 MG; Start 08/07/16 at 14:30 Ondansetron HCl (Zofran Inj) 4 mg Q6H PRN IV NAUSEA AND/OR VOMITING Last administered on 08/07/16 15:41; Admin Dose 4 MG; Start 08/07/16 at 14:30 Nitroglycerin (Nitroglycerin (Sl Tab) 0.4 Mg) 1 tab Q5M PRN SL CHEST PAIN; Start 08/07/16 at 14:30 Acetaminophen (Tylenol Tab) 650 mg Q6H PRN PO PAIN LEVEL 1-3 OR FEVER; Start at 14:30 Acetaminophen (Tylenol Supp) 650 mg Q6H PRN [place] PAIN LEVEL 1-3 OR FEVER; Start 08/07/16 at 14:30 Acetaminophen/ Hydrocodone Bitart ([place] (5/325)) 1 tab Q6H PRN PO PAIN LEVEL 4 -6 Last administered on 08/08/16 01:18; Admin Dose 1 TAB; Start 08/07/16 at 14:30 Docusate Sodium (Colace) 100 mg Q12H PRN PO CONSTIPATION; Start 08/07/16 at 14: 30 Bisacodyl (Dulcolax Supp) 10 mg DAILY PRN [place] CONSTIPATION; Start 08/07/16 at 14: 30 Lactobacillus Acidophilus/ Rhamnosus (Culturelle) 1 cap BID PO Last administered on 08/11/16 09:08; Admin Dose 1 CAP; Start 08/07/16 at 21:00 Metoprolol Succinate (Toprol Xl) 25 mg BID PO Last administered on 08/11/16 09: 09; Admin Dose 25 MG; Start 08/07/16 at 21:00 Morphine Sulfate (morphine) 2 mg Q4H PRN IV PAIN LEVEL 7-10 Last administered on 08/08/16 06:17; Admin Dose 2 MG; Start 08/08/16 at 06:30 Miscellaneous Information 1 ea NOTE XX ; Start 08/10/16 at 11:00 Glucose (Glutose) 15 gm Q15M PRN PO DECREASED GLUCOSE; Start 08/10/16 at 11:00 Glucose (Glutose) 22.5 gm Q15M PRN PO DECREASED GLUCOSE; Start 08/10/16 at 11:00 Dextrose (D50w Syringe) 25 ml Q15M PRN IV DECREASED GLUCOSE; Start 08/10/16 at 11:00 Dextrose (D50w Syringe) 50 ml Q15M PRN IV DECREASED GLUCOSE; Start 08/10/16 at 11:00 Glucagon (Glucagen) 1 mg Q15M PRN IM DECREASED GLUCOSE; Start 08/10/16 at 11:00 Glucose 15 gm 15 gm Q15M PRN BUCCAL DECREASED GLUCOSE; Start 08/10/16 at 11:00 Ceftriaxone Sodium (Rocephin) 50 ml @ 100 mls/hr Q24H IVPB Last administered on 08/11/16 15:11; Admin Dose 100 MLS/HR; Start 08/10/16 at 16:00 Diagnostic Test (Pha) (Accu-Chek) 1 ea 02 XX ; Start 08/11/16 at 02:00 Phenazopyridine HCl (Pyridium) 200 mg Q8H PRN PO BURNING SENSATION WHEN URINATI Last administered on 08/11/16 10:03; Admin Dose 200 MG; Start 08/11/16 at 09:30 ANGELINA GAMEZ NP Aug 11, 2016 15:27
--- NOTE | 2016-08-11 16:01 | CONS ---
Date/Time of Note Date/Time of Note DATE: 08/11/16 TIME: 15:57 Assessment/Plan Assessment/Plan Chief Complaint/Hosp Course IMPRESSION: 1. Congestive heart failure exacerbation, systolic, acute on chronic. 2. Positive troponin, minimal, in the setting of renal failure with catheterization during last admission revealing moderate nonobstructive coronary artery disease. 3. Cardiomyopathy with severely depressed left ventricular ejection fraction, last approximately 25%. 4. Acute renal failure. 5. Cardiac arrhythmia, on amiodarone with atrial fibrillation and apixiban. 6. Dyslipidemia. 7. Hypothyroidism. 8. Bacteremia-2/2 bottles positive tis admission 9. Back pain-disc bulge and spinal stenosis by CT 10. Anemia. Recc: -Tele -Continue losartan/toprol XL -Continue amio/apixaban -Continue lasix diuresis but change to po and follow-up volume status closely -Continue abx's x 2 weeks per ID Problems: Consultation Date/Type/Reason Admit Date/Time Aug 07, 2016 at 10:54 Initial Consult Date 08/07/2016 Type of Consultation: Cardiology Reason for Consultation positive troponin/cardiomyopathy Referring Provider: NACHO DAVE MD Exam/Review of Systems Vital Signs Vitals Vital Signs Date Time Temp Pulse Resp B/P Pulse Ox O2 Delivery O2 Flow Rate FiO2 08/11/16 15:28 98.1 83 17 130/63 100 08/11/16 07:48 Nasal Cannula 2.0 Intake and Output 08/10/16 08/10/16 08/11/16 15:00 23:00 07:00 Intake Total 650 ml Balance 650 ml Exam Review of Systems: CONSTITUTIONAL: No fevers, chills. PULMONARY: No sob CARDIOVASCULAR: No chest pain/palpitations GASTROINTESTINAL: No nausea/vomiting. GENITOURINARY: No hematuria/dysuria. MUSCULOSKELETAL: No myagias/arthalgias. PSYCHIATRIC: The patient denies depression. NEUROLOGIC: mild generalized weakness Constitutional: alert Psych: no complaints Head: normocephalic ENMT: mucosa pink and moist Neck: jvd (9 cm water), supple Respiratory: diminished breath sounds (at bases/B) Cardiovascular: regular rate and rhythm Gastrointestinal: non-tender, soft Musculoskeletal: muscle tone (normal) Extremities: edema (none) Neurological: lethargic, other (No focal deficits) Results Result Diagram: 08/11/16 0650 08/11/16 0650 Results 24 hrs Laboratory Tests Test 08/10/16 17:19 08/10/16 19:52 08/11/16 06:50 08/11/16 08:23 Bedside Glucose 180 184 126 White Blood Count 5.2 # Red Blood Count 3.55 L Hemoglobin 9.5 L Hematocrit 31.1 L Mean Corpuscular Volume 87.6 Mean Corpuscular Hemoglobin 26.8 L Mean Corpuscular Hemoglobin Concent 30.5 L Red Cell Distribution Width 22.6 H Platelet Count 103 L Mean Platelet Volume Neutrophils % 80.2 H Lymphocytes % 10.4 L Monocytes % 7.4 Eosinophils % 1.0 Basophils % 0.2 Nucleated Red Blood Cells % 0.0 Neutrophils # 4.2 Lymphocytes # 0.5 L Monocytes # 0.4 Eosinophils # 0.1 Basophils # 0.0 Nucleated Red Blood Cells # 0.0 Sodium Level 138 Potassium Level 3.5 Chloride Level 104 Carbon Dioxide Level 28 Anion Gap 10 Blood Urea Nitrogen 30 H Creatinine 0.91 Glucose Level 119 Calcium Level 8.2 L Test 08/11/16 11:49 Bedside Glucose 175 Medications Medications Current Medications Amiodarone HCl (Cordarone) 200 mg DAILY PO Last administered on 08/11/16 09:09 ; Admin Dose 200 MG; Start 08/08/16 at 09:00 Apixaban (Eliquis) 2.5 mg BID PO Last administered on 08/11/16 09:10; Admin Dose 2.5 MG; Start 08/07/16 at 21:00 Digoxin (Digoxin) 0.125 mg DAILY@13 PO Last administered on 08/11/16 15:08; Admin Dose 0.125 MG; Start 08/08/16 at 13:00 Ferrous Sulfate (Ferrous Sulfate (Ec)) 325 mg BID PO Last administered on 09:08; Admin Dose 325 MG; Start 08/07/16 at 21:00 Losartan Potassium (Cozaar) 50 mg DAILY PO Last administered on 08/11/16 09:10 ; Admin Dose 50 MG; Start 08/08/16 at 09:00 Potassium Chloride (Micro-K) 8 meq BID PO Last administered on 08/11/16 11:11; Admin Dose 8 MEQ; Start 08/07/16 at 21:00 Atorvastatin Calcium (Lipitor) 40 mg DAILY@21 PO Last administered on 08/10/16 20:02; Admin Dose 40 MG; Start 08/07/16 at 21:00 Lorazepam (Ativan) 0.5 mg Q6H PRN IV ANXIETY Last administered on 08/09/16 22: 48; Admin Dose 0.5 MG; Start 08/07/16 at 14:30 Ondansetron HCl (Zofran Inj) 4 mg Q6H PRN IV NAUSEA AND/OR VOMITING Last administered on 08/07/16 15:41; Admin Dose 4 MG; Start 08/07/16 at 14:30 Nitroglycerin (Nitroglycerin (Sl Tab) 0.4 Mg) 1 tab Q5M PRN SL CHEST PAIN; Start 08/07/16 at 14:30 Acetaminophen (Tylenol Tab) 650 mg Q6H PRN PO PAIN LEVEL 1-3 OR FEVER; Start at 14:30 Acetaminophen (Tylenol Supp) 650 mg Q6H PRN [place] PAIN LEVEL 1-3 OR FEVER; Start 08/07/16 at 14:30 Acetaminophen/ Hydrocodone Bitart ([place] (5/325)) 1 tab Q6H PRN PO PAIN LEVEL 4 -6 Last administered on 08/08/16 01:18; Admin Dose 1 TAB; Start 08/07/16 at 14:30 Docusate Sodium (Colace) 100 mg Q12H PRN PO CONSTIPATION; Start 08/07/16 at 14: 30 Bisacodyl (Dulcolax Supp) 10 mg DAILY PRN [place] CONSTIPATION; Start 08/07/16 at 14: 30 Lactobacillus Acidophilus/ Rhamnosus (Culturelle) 1 cap BID PO Last administered on 08/11/16 09:08; Admin Dose 1 CAP; Start 08/07/16 at 21:00 Metoprolol Succinate (Toprol Xl) 25 mg BID PO Last administered on 08/11/16 09: 09; Admin Dose 25 MG; Start 08/07/16 at 21:00 Morphine Sulfate (morphine) 2 mg Q4H PRN IV PAIN LEVEL 7-10 Last administered on 08/08/16 06:17; Admin Dose 2 MG; Start 08/08/16 at 06:30 Miscellaneous Information 1 ea NOTE XX ; Start 08/10/16 at 11:00 Glucose (Glutose) 15 gm Q15M PRN PO DECREASED GLUCOSE; Start 08/10/16 at 11:00 Glucose (Glutose) 22.5 gm Q15M PRN PO DECREASED GLUCOSE; Start 08/10/16 at 11:00 Dextrose (D50w Syringe) 25 ml Q15M PRN IV DECREASED GLUCOSE; Start 08/10/16 at 11:00 Dextrose (D50w Syringe) 50 ml Q15M PRN IV DECREASED GLUCOSE; Start 08/10/16 at 11:00 Glucagon (Glucagen) 1 mg Q15M PRN IM DECREASED GLUCOSE; Start 08/10/16 at 11:00 Glucose 15 gm 15 gm Q15M PRN BUCCAL DECREASED GLUCOSE; Start 08/10/16 at 11:00 Ceftriaxone Sodium (Rocephin) 50 ml @ 100 mls/hr Q24H IVPB Last administered on 08/11/16 15:11; Admin Dose 100 MLS/HR; Start 08/10/16 at 16:00 Diagnostic Test (Pha) (Accu-Chek) 1 ea 02 XX ; Start 08/11/16 at 02:00 Phenazopyridine HCl (Pyridium) 200 mg Q8H PRN PO BURNING SENSATION WHEN URINATI Last administered on 08/11/16 10:03; Admin Dose 200 MG; Start 08/11/16 at 09:30 MATHEW AMADO Aug 11, 2016 16:00
[2016-08-11] MEDS ORDERED: FUROSEMIDE 40 MG TAB PO SCH (18:00)
== END 2016-08-11 16:09 | DRG 551 ==
LOC: E/R 08:35 → MS4 10:54
PROVIDERS: ADMIT Family Medicine; ATTEND Family Medicine
DX: M54.5 Low back pain (principal); J18.9 Pneumonia, unspecified organism; N17.9 Acute kidney failure, unspecified; I50.23 Acute on chronic systolic (congestive) heart failure; I42.9 Cardiomyopathy, unspecified; D69.6 Thrombocytopenia, unspecified; N39.0 Urinary tract infection, site not specified; I11.0 Hypertensive heart disease with heart failure; I48.91 Unspecified atrial fibrillation; E78.5 Hyperlipidemia, unspecified; E03.9 Hypothyroidism, unspecified; E11.9 Type 2 diabetes mellitus without complications; Z95.810 Presence of automatic (implantable) cardiac defibrillator; I25.10 Atherosclerotic heart disease of native coronary artery without angina pectoris; I35.0 Nonrheumatic aortic (valve) stenosis; B95.5 Unspecified streptococcus as the cause of diseases classified elsewhere; R16.0 Hepatomegaly, not elsewhere classified
CPT/HCPCS: 36415; 71010; 72131; 74176; 80048; 80053; 80162; 81003; 82550; 82553; 82565; 82962; 83036; 83605; 83735; 83880; 84443; 84484; 84520; 85025; 85610; 85730; 87040; 87086; 93005; 93308; 93970; 96365; 96366; 96375; 96376; 97110; 97116; 97162; 97530; J1940; J0692; J0696; J1815; J2060; J2270; J2405; J3370; J7040; J7050

== ENCOUNTER 2016-09-21 07:03 | Inpatient (IN) | payer MEDICARE, OTHER ==
[~2016-09-21] VITALS: Ht 162.6 cm; Wt 86.3 kg
[2016-09-21] VITALS (28 sets, daily range): BP systolic 102–140; BP diastolic 45–76; PULSE 79–111; RESP 14–20; Ht 162.6 cm; Wt 86.3 kg
[~2016-09-21 07:03] MED LIST changes: +ACET325T40 PO; +DOCU-216 PO; +ETOMIDATE 20 MG INJ ONE; +LACT1CAP57 PO; -METO-429 PO; +METO25TA7 PO; +NIT4 SL; +PHEN-538 PO; +SUCCINYLCHOLINE CHLORIDE 100 MG/5 ML SYG IV ONE
--- NOTE | 2016-09-21 07:13 | ERA ---
ER Documentation Chief Complaint Date/Time DATE: 09/21/16 TIME: 07:12 Chief Complaint HPI 76-year-old woman brought in by EMS from home for altered mental status and initial complaints of headache. She was found in 1 of the rooms of her house bent forward complaining of headache and clutching her chest. Daughter who was at the scene states last night she felt normal and developed symptoms sometime this morning. She has multiple medical conditions but no history of stroke, she uses Apixaban daily for chronic atrial fibrillation post pacemaker placement. She has had no recent chest pain except for this morning, no fevers or chills, no cough, no calf or leg swelling. HPI was limited although supplemented by reviewing past medical history, speaking to family members were later at the bedside, speaking to EMS, and nursing staff. ROS All systems reviewed and are negative except as per history of present illness. Medications Home Meds Active Scripts Nitroglycerin* (Nitrostat*) 0.4 Mg Tab.subl, 1 TAB SL Q5M Y for CHEST PAIN for 1 Day Prov:NACHO DAVE MD 08/11/16 Potassium Chloride* (Potassium Chloride*) 8 Meq Capsule.er, 10 MEQ PO DAILY for 1 Day, CAP Prov:NACHO DAVE MD 08/11/16 Levothyroxine Sodium (Levothroid) 100 Mcg Tablet, 100 MCG PO BEFORE BREAKFAST for 30 Days, TAB Prov:BRITTANY OLIVEIRA MD 08/04/16 Reported Medications Metoprolol Succinate* (Toprol XL*) 50 Mg Tab.er.24h, 50 MG PO BID, #30 TAB 09/21/16 Furosemide* (Furosemide*) 40 Mg/5 Ml Solution, 40 MG PO DAILY, #150 ML 09/21/16 Ferrous Sulfate* (Ferrous Sulfate*) 325 Mg Tabec, 325 MG PO BID, TAB 07/30/16 Rosuvastatin Calcium* (Crestor*) 10 Mg Tablet, 10 MG PO QHS, #30 TAB 06/15/16 Metformin* (Glucophage*) 500 Mg Tab, 500 MG PO WITH BREAKFAST DINNE, #30 TAB 06/15/16 Losartan Potassium* (Losartan Potassium*) 50 Mg Tablet, 50 MG PO DAILY, TAB 06/15/16 Amiodarone Hcl* (Amiodarone Hcl*) 200 Mg Tablet, 200 MG PO DAILY, #30 TAB 06/15/16 Digoxin* (Lanoxin*) 0.125 Mg Tablet, 0.125 MG PO DAILY, TAB 06/15/16 Apixaban* (Eliquis*) 2.5 Mg Tablet, 2.5 MG PO BID, TAB 06/15/16 Discontinued Scripts Phenazopyridine Hcl* (Pyridium*) 200 Mg Tab, 200 MG PO Q8H Y for BURNING SENSATION WHEN URINATI for 1 Day, TAB Prov:NACHO DAVE MD 08/11/16 Lactobacillus Rhamnosus* (Culturelle*) 1 Each Cap.sprink, 1 CAP PO BID for 1 Day , CAP Prov:NACHO DAVE MD 08/11/16 Docusate Sodium (Dok) 100 Mg Capsule, 100 MG PO Q12H Y for CONSTIPATION for 1 Day, CAP Prov:NACHO DAVE MD 08/11/16 Acetaminophen (MAPAP) 325 Mg Tablet, 650 MG PO Q6H Y for PAIN LEVEL 1-3 OR FEVER for 1 Day, TAB Prov:NACHO DAVE MD 08/11/16 Metoprolol Succinate* (Toprol XL*) 25 Mg Tab.sr.24h, 25 MG PO BID, #60 Prov:NACHO DAVE MD 08/11/16 Furosemide* (Furosemide*) 40 Mg Tablet, 40 MG PO BID for 30 Days, TAB Prov:MARTY HOLLAND NP 06/17/16 Allergies Allergies: Coded Allergies: lisinopril (Unverified Allergy, Unknown, COUGH, 09/21/16) LISINOPRIL COUGH PER MS4 RN DON PMhx/Soc Congestive heart failure exacerbation, systolic, acute on chronic, with a severely depressed left ventricular ejection fraction, previous CA, dyslipidemia , hypothyroidism, acute kidney injury, hypertension, severe aortic stenosis, pulmonary hypertension, status post pacemaker status with atrial fibrillation, History of Surgery: No Anesthesia Reaction: No Hx Neurological Disorder: No Hx Respiratory Disorders: No Hx Cardiac Disorders: Yes (HTN, sick sinus, cardiomyopathy, pacemaker) Hx Psychiatric Problems: No Hx Miscellaneous Medical Probl: Yes (CHF, cardiomyopathystageII-IV diastolic dysfunction,severe aortic stenosis,) Hx Alcohol Use: No Hx Substance Use: No Hx Tobacco Use: No FmHx Family History: diabetes Physical Exam Vitals Vital Signs Date Time Temp Pulse Resp B/P Pulse Ox O2 Delivery O2 Flow Rate FiO2 09/21/16 08:57 80 18 128/64 100 Mechanical Ventilator 09/21/16 08:51 83 18 125/61 100 Mechanical Ventilator 09/21/16 08:35 80 18 123/49 100 Mechanical Ventilator 09/21/16 08:30 80 18 115/70 100 Mechanical Ventilator 09/21/16 08:12 80 18 126/90 100 Mechanical Ventilator 09/21/16 07:40 89 18 100 100 09/21/16 07:34 80 18 161/83 100 Mechanical Ventilator 09/21/16 07:16 Rebreather 09/21/16 07:10 94.8 84 6 187/89 100 Physical Exam GENERAL: Well-developed, well-nourished appearing woman, apneic, unresponsive HEENT: Pupils equal round and nonreactive, no cervical spine tenderness or step- off deformities, no goiter, no jaundice or icterus, extraocular movements intact without pain. No submandibular induration, and no pharyngeal erythema NEURO: Eyes closed, pupils equal but unreactive, nonverbal, no focal deficits or facial asymmetry CARDIAC: Regular rate and rhythm, no murmurs rubs or gallops LUNGS: Clear bilaterally no wheezing crackles or stridor ABDOMEN: Soft nontender, no guarding, no rigidity, no rebound, no psoas sign no obturator sign. SKIN: Warm and dry to touch, no abrasions, contusions, or hematomas, no lacerations, no ecchymosis, no target lesions, and without ulcers EXTREMITIES: No clubbing cyanosis or edema, calves are bilaterally symmetrical, no Homans sign, no popliteal cord sign. PSYCH: Unable to assess Result Diagram: 09/21/16 0709/21/16 0700 Results 24 hrs Laboratory Tests Test 09/21/16 07:00 09/21/16 07:18 09/21/16 07:21 09/21/16 08:01 White Blood Count 6.910^3/ul Red Blood Count 3.7710^6/ul Hemoglobin 10.7g/dl Hematocrit 33.9% Mean Corpuscular Volume 89.9fl Mean Corpuscular Hemoglobin 28.4pg Mean Corpuscular Hemoglobin Concent 31.6g/dl Red Cell Distribution Width 17.6% Platelet Count 75033^3/UL Mean Platelet Volume 14.0fl Neutrophils % 71.2% Lymphocytes % 18.7% Monocytes % 8.7% Eosinophils % 0.6% Basophils % 0.4% Nucleated Red Blood Cells % 0.0/100WBC Neutrophils # 4.910^3/ul Lymphocytes # 1.310^3/ul Monocytes # 0.610^3/ul Eosinophils # 0.010^3/ul Basophils # 0.010^3/ul Nucleated Red Blood Cells # 0.010^3/ul Prothrombin Time 16.1Sec Prothrombin Time Ratio 1.3 INR International Normalized Ratio 1.28 Sodium Level 136mmol/L Potassium Level 4.8mmol/L Chloride Level 101mmol/L Carbon Dioxide Level 25mmol/L Anion Gap 15 Blood Urea Nitrogen 19mg/dl Creatinine 1.00mg/dl Glucose Level 144mg/dl Calcium Level 8.5mg/dl Total Bilirubin 1.1mg/dl Direct Bilirubin 0.00mg/dl Indirect Bilirubin 1.1mg/dl Aspartate Amino Transf (AST/SGOT) 78IU/L Alanine Aminotransferase (ALT/SGPT) 41IU/L Alkaline Phosphatase 125IU/L Troponin I 0.020ng/ml Total Protein 7.7g/dl Albumin 3.1g/dl Globulin 4.60g/dl Albumin/Globulin Ratio 0.67 Lipase 290U/L Blood Gas Specimen Source Blood arterial Arterial Blood Date Drawn 09/21/2016 8:04:38 AM Arterial Blood pH (Temp corrected) 7.399 Arterial Blood pCO2 (Temp correct) 39.0mmhg Arterial Blood pO2 (Temp corrected) 200.5mmHG Arterial Blood HCO3 23.6mmol/L Arterial Blood Base Excess -1.1mmol/L Arterial Blood Oxygen Saturation 99.3mmHG Arjendra Test ACCEPTAB Arterial Blood Gas Puncture Site Right Brachial Arterial Blood Carboxyhemoglobin 0.4% Arterial Blood Methemoglobin 0.2% Blood Gas A-a O2 Differential 473.5mmHg Oxyhemoglobin Percent 98.7% Total Hemoglobin 10.1g/dl Blood Gas Temperature 37.0C Blood Gas Respiration Rate 18.0 Blood Gas Actual Respiration Rate 19 Blood Gas Modality VENT - AC FiO2 100.0% Blood Gas Tidal Volume 450.0mL Blood Gas Notified Whom MDA Blood Gas Notified Time 09/21/2016 8:09:15 AM Bedside Glucose 120mg/dL Urine Color LT. YELLOW Urine Clarity CLEAR Urine pH 6.0 Urine Specific [place] 1.010 Urine Ketones NEGATIVE Urine Nitrite NEGATIVE Urine Bilirubin NEGATIVE Urine Urobilinogen 0.2 E.U./dL Urine Leukocyte Esterase NEGATIVE Urine Hemoglobin NEGATIVE Urine Glucose NEGATIVE% Urine Total Protein NEGATIVE Current Medications Medications (Trade) Dose Ordered Sig/Alistair Route PRN Reason Start Time Stop Time Status Last Admin Dose Admin Sodium Chloride (NS) 1,000 ml @ 1,000 mls/hr Q1H STAT IV 09/21/16 07:18 09/21/16 08:17 DC 09/21/16 07:45 Ketamine HCl 70 mg 70 mg ONCE STAT IV 09/21/16 07:18 09/21/16 07:22 DC 09/21/16 08:33 Midazolam HCl 50 ml @ 3 mls/hr ONCE STAT IV 09/21/16 07:18 09/21/16 23:57 09/21/16 08:36 Nicardipine HCl 200 ml @ 50 mls/hr TITRATE IV 09/21/16 07:30 09/21/16 08:38 Phytonadione/ Dextrose (Vitamin K/D5W) 51 ml @ 102 mls/hr ONCE ONCE IVPB 09/21/16 08:00 09/21/16 08:29 DC 09/21/16 08:37 Miscellaneous Information ONCE XX 09/21/16 08:00 UNV Tranexamic Acid 1300 mg/Sodium Chloride 113 ml @ 226 mls/hr ONCE ONCE IV 09/21/16 08:00 09/21/16 08:29 DC 09/21/16 08:37 Prothrombin Complex Concent (Human) (Kcentra Kit) 130 ml @ 7.8 mls/min ONCE ONCE IV 09/21/16 08:30 09/21/16 08:46 DC 09/21/16 08:32 Ondansetron HCl (Zofran Inj) 4 mg Q6H PRN IV NAUSEA AND/OR VOMITING 09/21/16 09:00 Albuterol (Proventil 0.083% (Neb)) 2.5 mg Q4H RESP THERAPY NEB 09/21/16 09:00 Acetaminophen (Tylenol Supp) 650 mg Q4H PRN ID PAIN LEVEL 1-3 OR FEVER 09/21/16 09:00 Morphine Sulfate (morphine) 2 mg Q4H PRN IV PAIN LEVEL 7-10 09/21/16 09:00 Pantoprazole 40 mg 40 mg DAILY@06 IV 09/22/16 06:00 Nicardipine HCl/ Dextrose (Cardene Iv/D5W) 250 ml @ 50 mls/hr PER PROTOCOL IV 09/21/16 09:00 Lorazepam 1 mg 1 mg Q2H PRN IV Seizures 09/21/16 09:30 Propofol (Diprivan) 100 ml @ 1.95 mls/hr Q12H IV 09/21/16 09:30 Amiodarone HCl (Cordarone) 200 mg DAILY PO 09/22/16 09:00 UNV Digoxin (Digoxin) 0.125 mg DAILY PO 09/22/16 09:00 UNV Ferrous Sulfate (Ferrous Sulfate (Ec)) 325 mg BID PO 09/21/16 21:00 UNV Levothyroxine Sodium (Synthroid) 100 mcg BEFORE BREAKFAST PO 09/22/16 07:00 UNV Losartan Potassium (Cozaar) 50 mg DAILY PO 09/22/16 09:00 UNV Metoprolol Succinate (Toprol Xl) 50 mg BID PO 09/21/16 21:00 UNV Miscellaneous Information 10 mg QHS PO 09/21/16 21:00 UNV Procedures/MDM IV line was established patient was placed on monitoring analyst rhythm strip revealed a paced wide complex rhythm at 80 bpm. Blood sugar was normal. Cultures have been ordered. Endotracheal Intubation by me: Pre assessment performed. I sedated and paralyzed with etomidate plus succinylcholine. Pre-oxygenation performed with 100% oxygen RSI: Performed w/o complication or hypoxic events. Medications as ordered. Blade: Mac 4 ET Tube: 7.5 cm Depth: 21 cm at the lip Intubation confirmed by colorimetric CO2, equal breath sounds, quiet over the stomach. Chest X-ray 1V Interpreted by me: 3 cm above the luz marina ET tube. Normal soft tissue, No pneumothorax. Bilateral pulmonary vascular congestion, pacemaker in the left upper chest, cardiomegaly. For continued sedation I ordered ketamine bolus IV if needed for postintubation agitation and midazolam drip for continued sedation. EKG performed, read by me revealed a paced rhythm at 80 bpm with a first-degree atrial ventricular block and a ID interval of 260 ms, left axis deviation, with diffuse ST elevations consistent with bundle branch block. I compared to old EKG. Unchanged. CT scan of the brain was performed revealing bilateral subdural hematomas and a large right frontal lobe intracranial hemorrhage and effacement of parenchymal tissue and leftward shift of about 5 mm. Please refer to radiologist dictation for full report. Immediate neurosurgical consultation was obtained and he agreed to see and evaluate the patient. I ordered a nicardipine drip to keep systolic blood pressure at about 140 mmHg. Patient received 1 L normal saline IV bolus 1 followed by normal saline drip. Patient has a severe life-threatening hemorrhage and is currently using apixaban therapy. For anticoagulation reversal she received phytonadione 10 mg IV, 4factor PCC max dose IV, and tranexamic acid 1300 mg IV. CBC was unremarkable, electrolytes normal, liver function tests normal, troponin was negative, urine analysis was negative for infection. INR was 1.3. ABG post intubation revealed a pH of 7.4, PCO2 39, PO2 201 revealing mild respiratory alkalosis otherwise good pH. Mechanical ventilator adjusted post ABG. Critical Care: Time: 40 minutes, this was time separate from other procedures. Treatments/Evaluations: Close monitoring and treatment of unstable vital signs, cardiorespiratory, and neurologic status, while maintaining tight balance of fluid, respiratory, and cardiac interventions. Departure Diagnosis: Primary Impression: Bilateral subdural hematomas Additional Impressions: Cerebral hemorrhage Respiratory failure Qualified Code: J96.01 - Acute respiratory failure with hypoxia and hypercapnia Acute anoxic encephalopathy Anticoagulation excessive Condition: Critical ZAID HOUSTON MD September 21, 2016 07:13
[2016-09-21] MEDS ORDERED: MIDAZOLAM (DRIP) 50 mg/50 mL 50 ML IV STA (07:18)
[2016-09-21] MEDS ORDERED: SOD CHLORIDE 0.9% 1,000 ML IV STA (07:18)
[2016-09-21] MEDS ORDERED: KETAMINE 500 MG INJ IV STA (07:18)
[2016-09-21 07:27] LABS: ADD SCAN DIFF NO
[2016-09-21 07:29] LABS: ABNORMAL IP MESSAGE 1; BASOPHILS % 0.4 % (0.0-2.0); EOSINOPHILS % 0.6 % (0.0-7.0); HEMATOCRIT 33.9 % (37.0-47.0); HEMOGLOBIN 10.7 g/dl (12.0-16.0); LYMPHOCYTES # 1.3 10^3/ul (0.8-2.9); LYMPHOCYTES % 18.7 % (15.0-51.0); MEAN CORPUSCULAR HEMOGLOBIN 28.4 pg (29.0-33.0); MEAN CORPUSCULAR HGB CONC 31.6 g/dl (32.0-37.0); MEAN CORPUSCULAR VOLUME 89.9 fl (82.0-101.0); MONOCYTE # 0.6 10^3/ul (0.3-0.9); MONOCYTES % 8.7 % (0.0-11.0); NEUTROPHIL # 4.9 10^3/ul (1.6-7.5); NEUTROPHILS % 71.2 % (39.0-77.0); PLATELET COUNT 106 10^3/UL (140-415); RED BLOOD COUNT 3.77 10^6/ul (4.20-5.40); RED CELL DISTRIBUTION WIDTH 17.6 % (11.5-14.5); WHITE BLOOD COUNT 6.9 10^3/ul (4.8-10.8)
[2016-09-21] MEDS ORDERED: niCARdipine-D5W 0.1MG/ML DRIP 200 ML IV SCH (07:30)
--- NOTE | 2016-09-21 07:36 | RADRPT ---
PROCEDURE: XR Chest 1 view. CLINICAL INDICATION: Shortness of breath, status post intubation. TECHNIQUE: AP views of the chest were obtained. COMPARISON: August 08, 2016 FINDINGS: The heart is large. Calcified atherosclerosis is noted in the aorta. Endotracheal tube has its tip approximately 5.7 cm above the luz marina. Left-sided AICD has its lead over the heart and appears stab le. The lungs are hypoinflated. Central pulmonary vascular congestion and interstitial prominence is seen in both lungs. Patchy perihilar infiltrates are identified in both lungs. Osseous structur es are intact. IMPRESSION: Cardiomegaly with calcified atherosclerosis in the aorta. Endotracheal tube with its tip approximately 5.7 cm above the luz marina. Central pulmonary vascular congestion and interstitial prominence in both lungs. Patchy perihilar infiltrates in both lungs. Hypoinflated lungs. RPTAT: AA .Mani Mathias MD, Date Time Electronically viewed and signed by .Mani Mathias MD, on 09/21/2016 07:36 .P/
--- NOTE | 2016-09-21 07:42 | RADRPT ---
PROCEDURE: CT Brain without. CLINICAL INDICATION: Altered mental status TECHNIQUE: A CT of the brain was performed utilizing axial sections from the skull base through th e vertex without contrast. The scan was reviewed in soft tissue brain and high frequency resolution bone algorithm windows. Images were reviewed on a high-resolution PACS workstation. The exam CTDI = 45.01 mGy, and the DLP = 810.25 mGy-cm. COMPARISON: None available FINDINGS: There is a right frontal lobe parenchymal hematoma measuring 4.1 x 3.6 x 2.9 cm (AP x TR x CC). The re is a left cerebral convexity subdural hematoma measuring 7.4 mm in diameterand right cerebral con vexity hematoma measuring 10.5 mm in diameter. These both demonstrate predominately dense material. There is midline shift to the left measuring 5 mm at the level of the septum pellucidum. There is relative effacement of the cerebral sulci. The suprasellar cisterns are effaced. There is loss of the du-white differentiation along the inferior frontal lobes and temporal lobes. The prepontine c istern remains clear. The posterior fossa is unremarkable. Vascular calcifications are noted within the intracranial portions of the vertebral and internal carotid arteries. The visualized portions of the orbits are unremarkable. The paranasal sinuses and mastoid air cells are clear. No calvarial fracture or abnormality are identified. The soft tissues are unremarkable . IMPRESSION: 1. Right frontal lobe parenchymal hematoma measuring 4.1 x 3.6 x 2.9 cm with surrounding vasogenic edema. There are bilateral cerebral convexity subdural hematomas measuring 7.4 mm on the left and 1 0.5 mm on the right. 2. Midline shift to the left measuring approximately 5 mm at the level of the septum pellucidum. 3. Diffuse cerebral edema with effacement of the cerebral sulci and the suprasellar cisterns. 4. Loss of the du-white differentiation along the inferior frontal lobes and temporal lobes. Critical results were discussed with the patient's nurse on 09/21/2016 at 7:33 AM RPTAT: HH .Agnieszka Gómez MD, MD Date Time Electronically viewed and signed by .Agnieszka Gómez MD, MD on 09/21/2016 07:42 .G/
[2016-09-21 07:45] LABS: ALBUMIN 3.1 g/dl (3.3-4.9); INR 1.28; POTASSIUM 4.8 mmol/L (3.5-5.1); PROTIME 16.1 Sec (12.2-14.2); PT RATIO 1.3
[2016-09-21 07:47] LABS: BILIRUBIN,INDIRECT 1.1 mg/dl (0-1.1); BILIRUBIN,TOTAL 1.1 mg/dl (0.2-1.3)
[2016-09-21 07:48] LABS: ALBUMIN/GLOBULIN RATIO 0.67; CALCIUM 8.5 mg/dl (8.4-10.2); TOTAL PROTEIN 7.7 g/dl (6.1-8.1)
[2016-09-21 07:59] LABS: TROPONIN-I 0.02 ng/ml (0.00-0.12)
[2016-09-21] MEDS ORDERED: SOD CHLORIDE 0.9% IV ONE (08:00)
[2016-09-21] MEDS ORDERED: PHYTONADIONE 10 MG in DEXTROSE 5% 50 ML IVPB ONE (08:00)
[2016-09-21] MEDS ORDERED: TRANEXAMIC ACID IV ONE (08:00)
[2016-09-21 08:21] LABS: AADO2 Arterial 473.5 mmHg (7.0-24.0); Allen Test ACCEPTAB; Arterial Base Excess -1.1 mmol/L (-3.0-3); Arterial COHb 0.4 % (0.0-3.0); Arterial Fraction of Oxyhgb 98.7 % (93.0-99.0); Arterial HCO3 23.6 mmol/L (22.0-26.0); Arterial MetHb 0.2 % (0.0-1.5); Arterial Total Hemglobin 10.1 g/dl (12.0-18.0); MODE VENT - AC
[2016-09-21] MEDS ORDERED: HUMAN PROTHROMBIN COMPLX IV ONE (08:30)
[2016-09-21 08:38] LABS: ADD UMIC NO; URINE BILIRUBIN (Dip) NEGATIVE (NEGATIVE); URINE BLOOD (Dip) NEGATIVE (NEGATIVE); URINE COLOR LT. YELLOW (YELLOW); URINE GLUCOSE (Dip) NEGATIVE (NEGATIVE); URINE KETONES (Dip) NEGATIVE (NEGATIVE); URINE LEUKOCYTE ESTERASE (Dip) NEGATIVE (NEGATIVE); URINE NITRITE (Dip) NEGATIVE (NEGATIVE); URINE TOTAL PROTEIN (Dip) NEGATIVE (NEGATIVE); URINE UROBILINOGEN (Dip) 0.2 E.U./dL (0.1-1.0)
[2016-09-21] MEDS ORDERED: FURO40SO PO (08:48)
[2016-09-21] MEDS ORDERED: METO50TA16 PO (08:48)
[2016-09-21] MEDS ORDERED: morphine 2 MG INJ IV PRN (09:00)
[2016-09-21] MEDS ORDERED: ONDANSETRON 4 MG INJ IV PRN (09:00)
[2016-09-21] MEDS ORDERED: ALBUTEROL 0.083% (NEB) 2.5 MG/3 ML AMP NEB SCH (09:00)
[2016-09-21] MEDS ORDERED: LORAZEPAM 2 MG INJ IV PRN (09:30)
[2016-09-21] MEDS: PROPOFOL 100 ML IV SCH ×2 (09:30→21:30)
[2016-09-21] MEDS ORDERED: GLUCAGON 1 MG INJ IM PRN (10:00)
[2016-09-21] MEDS ORDERED: GLUCOSE GEL 15 GRAM TUBE PO PRN ×2 (10:00)
[2016-09-21] MEDS ORDERED: DEXTROSE 50% 50 ML SYRINGE IV PRN ×2 (10:00)
[2016-09-21] MEDS ORDERED: GLUCOSE GEL 15 GRAM TUBE BUCCAL PRN (10:00)
--- NOTE | 2016-09-21 10:32 | HP ---
DATE OF ADMISSION: 09/21/2016 REASON FOR ADMISSION: Brought in by paramedics because of sudden onset of loss of consciousness. CONSULTANTS: 1. Valentino Todd MD, Neurosurgery. 2. Anthony East MD, Cardiology. 3. Rinku Samson MD, Pulmonary. HISTORY OF PRESENT ILLNESS: This is a 76-year-old [place] female with past medical history of essential hypertension, pulmonary hypertension, hyperlipidemia, atrial fibrillation on anticoagulation with Eliquis, cardiomyopathy with ejection fraction of 30%, systolic and diastolic heart failure, hypothyroidism, sick sinus syndrome, status post pacemaker placement, and aortic stenosis, who was brought in by paramedics from the patient's home after the patient had sudden onset of loss of consciousness. As per the patient 's family who was at bedside, the patient has been complaining of "not feeling well" over the past few days. The patient was not eating well, but had no fevers, chest pain or anything unusual, other than the patient's complaint of "not feeling well." On the morning of 09/21/2016, the patient was noticed to be leaning forward, holding onto something to support and nauseated. The patient was complaining of severe headache. The patient was assisted to the nearest couch by the patient's daughter when she fell onto the couch. The patient became unconscious afterwards. There was no reported seizure activity. The patient's family denied any recent falls. Although the patient's family reported a fall at the correction in the recent past. After the patient was discharged home from [facility] on 08/11/2016 for gram- positive bacteremia, the patient was discharged to a half-way facility for long-term IV antibiotic management, and the patient later went home after completion of IV antibiotic therapy. The patient's daughter reported an apparent fall at the half-way facility during the short period of stay in the half-way facility. In the emergency room, the patient underwent a CT scan of the brain that showed right frontal lobe parenchymal hematoma measuring 4.1 x 3.6 x 2.9 cm with surrounding vasogenic edema. The CT also revealed bilateral cerebral convexity subdural hematomas measuring 7.4 mm on the left and 10.5 mm on the right. There was also midline shift to the left measuring approximately 5 mm at the level of the septum pellucidum. The CT also revealed diffuse cerebral edema with effacement of the cerebral sulci and the suprasellar cistern. The patient was also noticed to have elevated blood pressure in the emergency room with an initial blood pressure of 187/89. Hence, the patient was started on a Cardene drip. The patient was also given prothrombin complex concentrate, vitamin K, and tranexamic acid to potentially reverse the effects of Eliquis that the patient was taking at home. A neurosurgery consult was called by the ER physician. The patient was orally intubated in the emergency room for airway protection PAST MEDICAL HISTORY: Atrial fibrillation, essential hypertension, pulmonary hypertension, hyperlipidemia, cardiomyopathy, systolic and diastolic heart failure, hypothyroidism, sick sinus syndrome, status post pacemaker, aortic stenosis, diabetes mellitus type 2. PAST SURGICAL HISTORY: Permanent pacemaker placement. HOME MEDICATIONS: 1. Eliquis 2.5 mg p.o. b.i.d. 2. Ferrous sulfate 325 mg p.o. b.i.d. 3. Amiodarone 200 mg p.o. daily. 4. Digoxin 0.125 mg p.o. daily. 5. Losartan 50 mg p.o. daily. 6. Toprol-XL 50 mg p.o. b.i.d. 7. Crestor 10 mg p.o. at bedtime. 8. Lasix 40 mg p.o. daily. 9. Potassium chloride 10 mEq p.o. daily. 10. Synthroid 100 mcg p.o. before breakfast. 11. Metformin 500 mg p.o. with breakfast and dinner. ALLERGIES: LISINOPRIL. REVIEW OF SYSTEMS: Unable to obtain review of systems because of the patient's current mental status. PHYSICAL EXAMINATION: VITAL SIGNS: Temperature 94.8, pulse rate 80, respiratory rate 18, blood pressure 128/64, oxygen saturation 100% on 100% FIO2 via mechanical ventilator. GENERAL: This is an elderly female patient lying in bed, orally intubated and mechanically ventilated. HEENT: Head normocephalic and atraumatic. Eyes: Anicteric sclerae. Conjunctivae clear. Pupils are fixed and dilated. ENT: Nasal septum is midline. Oral mucosa is dry. Orally intubated. NECK: Supple. No JVD noticed. RESPIRATORY: Bilaterally diminished breath sounds. No adventitious breath sounds heard. On AC mode ventilation. CARDIAC: Regular rate and rhythm. S1, S2 heard. Grade III/ systolic ejection murmur. ABDOMEN: Soft, scaphoid. Nontender. Bowel sounds hypoactive in all 4 quadrants. GENITOURINARY: The patient has a Macedo catheter in place. EXTREMITIES: No cyanosis, no clubbing, no edema. Peripheral pulses are palpable. NEUROLOGIC: The patient is unresponsive. Has some spontaneous movement of the left upper extremity. Withdrawal to pain of bilateral lower extremities. LABORATORY AND DIAGNOSTIC DATA: WBC 6.9, hemoglobin 10.7, hematocrit 33.9, platelet count 106. Sodium 136, potassium 4.8, chloride 101, carbon dioxide 25 , anion gap 15, BUN 19, creatinine 1.00, glucose 144, calcium 8.5. PT 16.1, INR 1.28. Urinalysis: Urine nitrite negative, urine leukocyte esterase negative, urine glucose negative, urine total protein negative. Blood gas that was done on 100% FIO2 via mechanical ventilator: pH 7.399, pCO2 of 39.0, pO2 of 200.5, bicarbonate 23.6, oxygen saturation 99.3, base excess -1.1. Chest x-ray: Cardiomegaly with calcified atherosclerosis in the aorta. Endotracheal tube with its tip approximately 5.7 cm above the luz marina. Central pulmonary vascular congestion and interstitial prominence in both lungs. Patchy perihilar infiltrates in both lungs. Brain CT scan: Right frontal lobe parenchymal hematoma measuring 4.1 x 3.6 x 2.9 cm with surrounding vasogenic edema. There are bilaterally cerebral convexity subdural hematomas measuring 7.4 mm on the left and 10.5 mm on the right. Midline shift to the left measuring approximately 5 mm at the level of the septum pellucidum. Diffuse cerebral edema with effacement of the cerebral sulci and the suprasellar cisterns. 12-lead EKG: Electronic biventricular pacemaker. IMPRESSION: A 76-year-old female who was brought to the emergency room status post sudden loss of consciousness at home, who was found to have evidence of intracranial bleeding including intraparenchymal and subdural hematoma who will be admitted here for further treatment and evaluation. ASSESSMENT AND PLAN: 1. Intracranial bleeding including intraparenchymal hematoma and bilateral subdural hematomas with midline shift. Neurosurgery has been consulted. The patient will be maintained on seizure precautions. The patient's blood pressure will be controlled using IV medications to keep the systolic blood pressure less than 160 mmHg. The patient's prognosis is poor. All the anticoagulants will be discontinued. The patient already got reversal agents for factor Xa inhibitors at the emergency room. 2. Accelerated hypertension. The patient will be maintained on Cardene drip to control her blood pressure. Cardiology consult will be obtained on this patient. 3. Atrial fibrillation. The patient's heart rate is currently controlled. The patient will be continued on amiodarone. Anticoagulation will be discontinued because of current intracranial bleed. 4. Cardiomyopathy with ejection fraction of 30% with stage III and stage IV diastolic dysfunction. The patient will be continued on her home medications for her underlying cardiomyopathy. 5. Hypothyroidism. The patient will be continued on Synthroid. Thyroid function panel will be obtained on this patient. 6. Hyperlipidemia. The patient's statins will be resumed. A fasting lipid panel will be obtained. 7. Type 2 diabetes mellitus. The patient's metformin will be put on hold. The patient will be started on sliding scale insulin. Hemoglobin A1c will be obtained to evaluate the blood glucose control over the past few weeks. 8. Normocytic anemia. The patient has a history of iron deficiency. The patient will be restarted on iron supplements. 9. Thrombocytopenia. The patient will be monitored. We will not order any antiplatelet medications. Plan. The patient will be admitted to inpatient intensive care unit. The patient will be kept n.p.o. The patient will be maintained on mechanical ventilation. Pulmonology consult will be ordered for mechanical ventilation management. The patient will remain a FULL CODE. Activities will be bed rest. The patient will be started on gastrointestinal prophylaxis. The patient will be started on DVT prophylaxis with bilateral sequential compression devices. The rest of the patient's management will be based on the clinical course, the results of diagnostic studies, and inputs from consultants. Based on the patient's clinical presentation, she most probably requires more than 2 midnights' stay for further management and evaluation of her clinical presentation. The case and management of this patient was fully discussed with Dr. Agarwal. The patient's prognosis is poor. MARTY AGARWAL MD, AM/JARRELL Conf#: [id number] DID#: [id number] MTDD
--- NOTE | 2016-09-21 10:58 | CONS ---
DATE OF ADMISSION: 09/21/2016 DATE OF CONSULTATION: 09/21/2016 TYPE OF CONSULTATION: Pulmonary REASON FOR CONSULTATION: Ventilator management. Thank you, Dr. Murray, for this consultation. HISTORY OF PRESENT ILLNESS: This is a pleasant 76-year-old lady with a history of pacemaker, recent non-ST elevation myocardial infarction, who had worsening mental status, became progressively alter ed and unresponsive this morning, brought to the emergency room for further evaluation. Here found to have acute right frontal bleed on head CT. There is no history of fall or head injury. The janine ent was evaluated by neurosurgery, recommendations are pending at time of this dictation. The patie nt of note was on Eliquis for irregular heart rate, which she had taken prior to this admission. PAST MEDICAL HISTORY: 1. Atrial fibrillation. 2. Cardiomyopathy with decreased ejection fraction. 3. Thrombocytopenia. 4. History of hypothyroidism. MEDICATIONS: Per chart. ALLERGIES: LISINOPRIL. SOCIAL HISTORY: Nonsmoker, no alcohol, no history of drug use. FAMILY HISTORY: Noncontributory. REVIEW OF SYSTEMS: A 12-point review of systems currently unable to perform. PHYSICAL EXAMINATION: GENERAL: Elderly-appearing lady, comfortable at rest, no acute distress. VITAL SIGNS: Currently afebrile, pulse is 80, blood pressure 128/64, O2 saturation 96% on FIO2 of 5 0%, orally intubated. HEENT: Dry mucous membranes. Pupils are sluggish, minimally reactive. CARDIAC: S1, S2, no added sounds or murmurs. CHEST: Diminished air entry bilaterally. ABDOMEN: Soft, nontender. No guarding or rebound. EXTREMITIES: No cyanosis, clubbing, edema. NEUROLOGIC: Unable to assess. LABORATORY DATA: White count 6.9, hemoglobin 10.7, platelets of 106. Chemistry within normal limit s. Arterial blood gas: pH 7.39, pCO2 of 39, pO2 of 200. IMPRESSION: 1. Acute intracerebral bleed with midline shift. 2. History of anticoagulation with Eliquis for atrial fibrillation. 3. Pacemaker placement. 4. Recent non-ST elevation myocardial infarction. PLAN: 1. Continue mechanical ventilation for hypoxemic respiratory failure and airway protection. 2. Neurosurgical recommendations. 3. Blood pressure management. 4. DVT and GI prophylaxis. Dictated By: MIKAYLA DEE/JARRELL Conf#: [id number] [facility]#: [id number]
[2016-09-21] MEDS ORDERED: MANNITOL 25% 50 ML INJ IV* ONE (11:00)
[2016-09-21] MEDS: FUROSEMIDE 40 MG INJ IV SCH (11:20)
[2016-09-21] MEDS: INSULIN ASPART [NOVOLOG] 3 ML PEN SC SCH ×4 (11:28→21:46)
[2016-09-21] MEDS ORDERED: SOD CHLORIDE 0.9% 100 ML ONE (11:40)
[2016-09-21] MEDS ORDERED: IODIXANOL LOCM 100 ML BTL ONE (11:40)
--- NOTE | 2016-09-21 11:50 | RADRPT ---
PROCEDURE: XR Chest 1 View. CLINICAL INDICATION: Shortness of breath, endotracheal tube placement. TECHNIQUE: AP view of the chest was obtained. COMPARISON: September 21, 2016 at 07:28 a.m. FINDINGS: Heart is large. Calcified atherosclerosis is noted in the aorta. Endotracheal tube has its tip bartolome roximately 3.8 cm above the luz marina. Left-sided AICD has its lead over the heart and appears stable. Central pulmonary vascular congestion and interstitial prominence in both lungs is unchanged. Pat rebekah perihilar and lower lung infiltrates in both lungs continue to be identified and appears stable, given differences in technique. Small bilateral pleural effusions are stable. Osseous structures a re intact. IMPRESSION: Cardiomegaly with calcified atherosclerosis in the aorta. Endotracheal tube with its tip approximately 3.8 cm above the luz marina. Stable central pulmonary vascular congestion and interstitial prominence in both lungs. Stable bilateral perihilar and lower lung infiltrates, combined with small pleural effusions. RPTAT: AA .Mani Mathias MD, Date Time Electronically viewed and signed by .Mani Mathias MD, on 09/21/2016 11:49 .P/
--- NOTE | 2016-09-21 12:45 | CONS ---
DATE OF ADMISSION: 09/21/2016 DATE OF CONSULTATION: 09/21/2016 TYPE OF CONSULTATION: Cardiology REASON FOR CONSULTATION: Hypertension, cardiomyopathy, congestive heart failure, intracranial bleed on anticoagulation, assess management. REQUESTING PHYSICIAN: Rinku Samson MD and Gama Velez NP from the hospitalist service. HISTORY OF PRESENT ILLNESS: Ms. Albrecht is a 76-year-old female with history of hypertension, dy slipidemia, atrial fibrillation on systemic anticoagulation with Eliquis, cardiomyopathy, decreased left ventricular ejection fraction last one approximately 25% by echo on 07/31/2016, who presented w ith altered mental state, complaints of headache. The daughter stating on the morning of 09/21/2016 , the patient noted to be leaning forward, holding onto the countertop, nauseated, complaining of se shahnaz headache and then had unconsciousness there-afterwards. No reported seizure activity. The pat ient brought to the emergency department here at [facility]. Upon arrival, temper ature 94.8, blood pressure markedly elevated at 187/89, pulse 84, respiratory rate 16, saturating 10 0%. The patient's labs revealed a white count 6.9, hemoglobin 10.7, platelet count of 106. Sodium 136, potassium 4.8, creatinine 1.0, BUN 19, AST 78, ALT 41. Troponin negative. INR 1.3. ABG revea ling a pH of 7.399, a PaO2 of 200, pCO2 of 39. UA negative. The patient underwent a chest x-ray re vealing stable central pulmonary vascular congestion, interstitial prominence of both lungs, stable bilateral perihilar and lower lung infiltrates. The patient additionally underwent a head CT reveal ing right frontal lobe parenchymal hematoma measuring 4.1 x 3.6 x 2.9 cm, surrounding vasogenic erika a, bilateral cerebral convexity subdural hematomas measuring 7.4 mm on the left and 7.5 mm on the ri ght, midline shift to the left measuring approximately 5 mm at the level of the septum, diffuse cere bral edema with effacement of the cerebral sulci and suprasellar cisterns, loss of du-white differ entiation along the inferior frontal lobe and temporal lobes. The patient's electrocardiogram revea led a paced rhythm, rate of 80. The patient was given vitamin K and factor replacement for reversal of anticoagulation. The patient had been admitted to the ICU and consulted by the neurosurgery ser vices, who are evaluating the case at this time. PAST MEDICAL HISTORY: As above in HPI. MEDICATIONS CURRENTLY IN HOSPITAL: 1. Amiodarone 200 mg daily. 2. Losartan 50 mg daily. 3. Synthroid 100 mcg daily. 4. Digoxin 0.125 mg daily. 5. Ferrous sulfate 325 mg p.o. b.i.d. 6. Metoprolol 50 mg p.o. b.i.d. 7. Lipitor 40 mg at bedtime. 8. Insulin sliding scale. 9. Lasix 40 mg IV daily. 10. Propofol IV. 11. Tylenol p.r.n. 12. Morphine p.r.n. ALLERGIES: ZESTRIL. SOCIAL HISTORY: No tobacco, ETOH or illicit drug use. FAMILY HISTORY: No history of sudden cardiac or early CAD. REVIEW OF SYSTEMS: As above in HPI. CONSTITUTIONAL: No fevers or chills. PULMONARY: Status post intubation. CARDIOVASCULAR: History of atrial fibrillation, currently paced. GASTROINTESTINAL: No vomiting. GENITOURINARY: No hematuria. MUSCULOSKELETAL: Degenerative joint disease. PSYCHIATRIC: No documented psych history. NEUROLOGIC: Encephalopathy. PHYSICAL EXAMINATION: VITAL SIGNS: Temperature of 94.8, last blood pressure 128/64, pulse 80, respiratory rate 18, satura tion 100%. GENERAL: The patient is intubated and sedated. NECK: JVP approximately 9 cm of water. CHEST: Fair movement throughout with decreased breath sounds at bases bilaterally. HEART: Regular rate and rhythm. Normal S1, S2, I/ systolic murmur, nondisplaced PMI. ABDOMEN: Positive bowel sounds, soft. EXTREMITIES: No pitting edema, 1+ pulses bilaterally posterior tibial. LABORATORY DATA: As above in HPI. No further labs for my review at this time. IMAGING STUDIES: As above in HPI. No further imaging studies for my review at this time. ECG: As above in HPI. No further electrocardiograms for my review at this time. IMPRESSION: 1. Congestive heart failure exacerbation, systolic, acute on chronic, by recent echocardiogram in 0 07/2016 revealing ejection fraction of 25%. 2. Cardiomyopathy with decreased left ventricular ejection fraction, last ejection fraction approxi mately 25% by echocardiogram 07/2016. 3. History of automatic implantable cardioverter-defibrillator. 4. History of paroxysmal atrial fibrillation, previously on systemic anticoagulation. 5. Subdural hematomas with midline shift and vasogenic edema. 6. Encephalopathy. 7. Hypertension. 8. Anemia. 9. Thrombocytopenia. RECOMMENDATIONS: 1. At this time, would maintain the patient on telemetry monitoring to follow rhythm and rate close ly. 2. We will check serial EKGs to assess for any significant ongoing changes. 3. Continue the patient's baseline Losartan and Toprol as tolerated, following blood pressure and h eart rate closely. 4. Continue the patient's digoxin. We will check a digoxin level. 5. Continue the patient's amiodarone in an attempt to maintain sinus rhythm as possible. 6. Ongoing neurosurgical evaluation for possible need for intervention. 7. Follow up the patient's repeat head CT for reassessment of hematomas. 8. Continue the patient's gentle Lasix diuresis, following strict I's and O's to grade diuresis kwaku sely. 9. Hold all anticoagulation at this time. Thank you for allowing me to take part in the care of this patient. I will continue to follow along very closely with you. Further recommendations will be made as the patient progresses through her inpatient hospital course. Dictated By: MATHEW BACH/JARRELL Conf#: [id number] DID#: [id number] CC: GAMA VELEZ [employer];*End*
--- NOTE | 2016-09-21 12:55 | RADRPT ---
PROCEDURE: CTA Brain. CLINICAL INDICATION: Intracranial hemorrhage. Evaluate for AVM or other vascular malformation. TECHNIQUE: The study was performed utilizing a multi-slice multidetector CT scanner. Direct spiral 0.65 mm axial sections were obtained through the intracranial vasculature with the use of 100 cc of Onipaque 350 nonionic intravenous contrast material. Coronal and sagittal MPRs as well as maximal intensity projection reformations were obtained. 3-D MIP images were also reviewed. The images were reviewed on a PACS workstation. The CTDIvol is 84.39, and 32.09 mGy and the DLP is 636.07 mGycm. One or more of the following dose reduction techniques were used: Automated exposure control Adjustment of the mA and/or kV according to patient size. Use of iterative reconstruction technique. COMPARISON: CT head 09/21/2016 FINDINGS: Moderate calcific plaques are seen at the cavernous and supraclinoid ICA with no hemodynamically sig nificant stenosis. The anterior cerebral and middle cerebral arteries are patent and normal in calib er. The vertebral arteries, basilar artery, superior cerebellar arteries, and posterior cerebral ar teries are all normal in appearance. No aneurysm is identified. No vascular malformation is seen. Redemonstrated is a large right frontal lobe intraparenchymal hematoma measuring 6.1 x 3.6 cm (AP x transverse) on axial images. There is mild surrounding vasogenic edema around the right frontal lob e intraparenchymal hematoma. There is 5 mm leftward midline shift. Bilateral cerebral convexity hem atoma measures up to 10 mm on the right and 7 mm on the left, not significantly changed. There is a pproximately 10 x 9 mm round focus of contrast enhancement in the lateral aspect of the right fronta l hematoma. There is a tiny vessel identified in the posterior aspect of this contrast collection. There is no definite of communication with the arterial system. No enlarged drainage vein is ident ified. A call report was made to [employer] Guardado at 09/21/2016 12:53:52 PM following completion of the examina tion. IMPRESSION: 1. Approximately 9 x 10 mm round contrast collection along the lateral aspect of the right frontal intraparenchymal hematoma. A tiny vessel is seen along the posterior aspect of this contrast collec tion without definitive communication with the arterial system or enlarged drainage vein to suggest arteriovenous malformation; however dural AV fistula is difficult to exclude on CTA. Recommend conv entional cerebral angiogram for further evaluation. 2. No substantial change in size and associated mass effect of right frontal intraparenchymal hemor rhage. Bilateral subdural hematomas right greater than left with 5 mm leftward midline shift. Effa cement of the suprasellar cisterns and cortical sulci is again identified. RPTAT: BB .Abram Chavarria MD, MD Date Time Electronically viewed and signed by .Abram Chavarria MD, MD on 09/21/2016 12:54 .O/
--- NOTE | 2016-09-21 12:58 | CONS ---
Date/Time of Note Date/Time of Note DATE: 09/21/16 TIME: 12:43 Assessment/Plan Assessment/Plan Problems: (1) Cerebral hemorrhage Status: Acute Comment: This is 76 yo woman with multiple medical problems but neurologically and functionally in good condition with large spontaneous ICH. She was on Eliquis. This was reversed with PCC, status of coagulation not entirely certain at this time as such is the case with new agents. She has large R frontal ICH and also bilateral acute SDH over entire hemispheres with a large amount of mass effect bilaterally. Suprasellar and ambient cisterns are effaced, and there is evidence of brainstem dysfunction with loss of reflexes at least unilaterally. 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 Combination of acute spontaneous intraparenchymal and subdural hemorrhage raises the suspicion of AVM or other vascular anomaly (even with blood thinners) . I ordered CTA, which shows apparent dilated abnormal vessel overlying area of clot. This is suspicious but not definitive for dural AV fistula or possibly other malformation as well. At this time, prognosis is poor. Without intervention, she is likely to deteriorate, and chance of survival is low. The Eliquis use certainly raises risk of surgery substantially, even with the administration of PCC and other agents. Surgery could be considered, but, given location of blood bilaterally as well as likely vascular malformation makes determination of exactly what surgery would be done difficult. The volume of SDHs is probably much higher than the volume of intraparenchymal blood. Could consider R craniotomy (there is shift from R to L), but there would be risk of both torrential bleeding from abnoormal vessels as well as of resulting herniation due to L SDH. She also has significant medical risks given cardiac disease. In this case, there is significant risk of hurting the patient with surgery, although it is understood that without intervention prognosis also very poor. Even if successful brain decompression is carried out, there would be still high risk of mortality. If she survives, the chance of recovery to the point of good quality of life is low, and it is more likely that she would be left with poor quality of life, even possibly vegetative. I discussed this in detail with the family, including daughters and grandchildren. My recommendation is that aggressive treatment has only tiny chance of leading to good outcome but would lead to increased chance of survival with bad outcome and poor quality of life. I would not encourage them to be aggressive with decision making, although if they insist that "everything be done" then I would be available to perform craniotomy and evacuation of clot. If decided not to do surgery, as is my best recommendation, then she can be supported with ICP measures, including hyperventilation, osmotics or hypertonic solutions, and head elevation. They are considering. Recommend: 1. Continue support in ICU with ventilator. 2. HOB elevated 30 degrees. 3. Hyperventilation with goal PCO2 32-36. 4. Avoid fluid overload. Isotonic IVs only, nothing hypotonic. Goal Na+ 145-150 or higher. 5. Will write for 3% NaCl to support serum Na+ 6. BP control. Do not want to over-correct. IV antihypertensives only for SBP > 160. 7. Would not recommend steroids. Anticonvulsants OK. 8. Sedation only if needed for ventilation, which does not seem to be the case now. Consultation Date/Type/Reason Admit Date/Time September 21, 2016 at 08:29 Date of Consultation: September 21, 2016 Type of Consultation: Neurosurgery Reason for Consultation Intracranial hemorrhage Hx of Present Illness History obtained from patient's daughters who were at bedside. Patient not feeling well past few days but this did not seem major. This morning, daughter heard the patient gagging or retching in kitchen. She found her standing over the sink with head in hand obviously in distress and complaining of severe headache. Daughter tried to help her to the couch, but the patient collapsed before going even several feet. She was guided to the ground and the daughter called 911. Patient transferred to ER where she had altered status and was hypertensive. CT obtained and patient intubated for airway protection. The patient was taking Eliquis. She received PCC and vitamin K in the ER. intubated; ROS impossible Subjective hx not possible: pt non-verbal, pt critical Past Medical History Medical History: congestive heart failure, diabetes, high cholesterol, hypertension, hypothyroid, other (pulmonary hypertension, cardiomyopathy, sick sinus syndrome, aortic stenosis, anemia) Past Surgical History Past Surgical Hx: other (pacemaker placement) Family History Significant Family History: other (stroke) Social History Alcohol Use: none Smoking Status: Unknown if ever smoked Drug Use: none Exam/Review of Systems Vital Signs Vitals Vital Signs Date Time Temp Pulse Resp B/P Pulse Ox O2 Delivery O2 Flow Rate FiO2 09/21/16 12:00 98.7 80 18 126/68 100 Mechanical Ventilator 09/21/16 07:40 100 Exam Constitutional: No alert Head: atraumatic, normocephalic Eyes: nl conjunctiva, other (s/p cataract surgery bilat) ENMT: intubated Neck: supple Musculoskeletal: nl extremities to inspection Extremities: normal pulses, No edema Neurological: other (no eye opening; localizes on L and extensor posturing to stim on R; L pupil 4mm, ? reactive; R pupil 5mm unreactive; corneal present on L , absent on R; no doll's eyes response; strong cough and gag; toes equivocal bilaterally), unresponsive Results I reviewed CT brain showing acute R frontal intraparenchymal hematoma 4.2cm and bilateral acute SDH over large areas of hemispheres. several mm R to L midline shift. Basal cisterns effaced suprasellar but somewhat intact in posterior fossa. CT angiogram, which I ordered and reviewed, shows abnormal dilated vessel directly overlying clot; not definitive but suggestive of AVF or possibly AVM. Result Diagram: 09/21/16 0709/21/16 0700 Results 24 hrs Laboratory Tests Test 09/21/16 07:00 09/21/16 07:18 09/21/16 07:21 09/21/16 08:01 White Blood Count 6.9 # Red Blood Count 3.77 L Hemoglobin 10.7 L Hematocrit 33.9 L Mean Corpuscular Volume 89.9 Mean Corpuscular Hemoglobin 28.4 L Mean Corpuscular Hemoglobin Concent 31.6 L Red Cell Distribution Width 17.6 #H Platelet Count 106 L Mean Platelet Volume 14.0 #H Neutrophils % 71.2 Lymphocytes % 18.7 Monocytes % 8.7 Eosinophils % 0.6 Basophils % 0.4 Nucleated Red Blood Cells % 0.0 Neutrophils # 4.9 Lymphocytes # 1.3 Monocytes # 0.6 Eosinophils # 0.0 Basophils # 0.0 Nucleated Red Blood Cells # 0.0 Prothrombin Time 16.1 H Prothrombin Time Ratio 1.3 INR International Normalized Ratio 1.28 Sodium Level 136 Potassium Level 4.8 Chloride Level 101 Carbon Dioxide Level 25 Anion Gap 15 Blood Urea Nitrogen 19 Creatinine 1.00 Glucose Level 144 Calcium Level 8.5 Total Bilirubin 1.1 Direct Bilirubin 0.00 Indirect Bilirubin 1.1 Aspartate Amino Transf (AST/SGOT) 78 H Alanine Aminotransferase (ALT/SGPT) 41 Alkaline Phosphatase 125 H Troponin I 0.020 Total Protein 7.7 Albumin 3.1 L Globulin 4.60 H Albumin/Globulin Ratio 0.67 Lipase 290 Blood Gas Specimen Source Blood arterial Arterial Blood Date Drawn 09/21/2016 8:04:38 AM Arterial Blood pH (Temp corrected) 7.399 Arterial Blood pCO2 (Temp correct) 39.0 Arterial Blood pO2 (Temp corrected) 200.5 H Arterial Blood HCO3 23.6 Arterial Blood Base Excess -1.1 Arterial Blood Oxygen Saturation 99.3 Rajendra Test ACCEPTAB Arterial Blood Gas Puncture Site Right Brachial Arterial Blood Carboxyhemoglobin 0.4 Arterial Blood Methemoglobin 0.2 Blood Gas A-a O2 Differential 473.5 H Oxyhemoglobin Percent 98.7 Total Hemoglobin 10.1 L Blood Gas Temperature 37.0 Blood Gas Respiration Rate 18.0 Blood Gas Actual Respiration Rate 19 Blood Gas Modality VENT - AC FiO2 100.0 Blood Gas Tidal Volume 450.0 Blood Gas Notified Whom MDA Blood Gas Notified Time 09/21/2016 8:09:15 AM Bedside Glucose 120 Urine Color LT. YELLOW Urine Clarity CLEAR Urine pH 6.0 Urine Specific Louann 1.010 Urine Ketones NEGATIVE Urine Nitrite NEGATIVE Urine Bilirubin NEGATIVE Urine Urobilinogen 0.2 E.U./dL Urine Leukocyte Esterase NEGATIVE Urine Hemoglobin NEGATIVE Urine Glucose NEGATIVE Urine Total Protein NEGATIVE Test 09/21/16 11:25 Bedside Glucose 184 Medications Medications Current Medications Ondansetron HCl (Zofran Inj) 4 mg Q6H PRN IV NAUSEA AND/OR VOMITING; Start at 09:00 Acetaminophen (Tylenol Supp) 650 mg Q4H PRN [place] PAIN LEVEL 1-3 OR FEVER; Start 09/21/16 at 09:00 Morphine Sulfate (morphine) 2 mg Q4H PRN IV PAIN LEVEL 7-10; Start 09/21/16 at 09:00 Pantoprazole (Protonix Iv) 40 mg DAILY@06 IV ; Start 09/22/16 at 06:00 Lorazepam 1 mg 1 mg Q2H PRN IV Seizures; Start 09/21/16 at 09:30 Propofol (Diprivan) 100 ml @ 1.95 mls/hr Q12H IV ; Start 09/21/16 at 09:30 Amiodarone HCl (Cordarone) 200 mg DAILY PO ; Start 09/22/16 at 09:00 Digoxin (Digoxin) 0.125 mg DAILY PO ; Start 09/22/16 at 09:00 Ferrous Sulfate (Ferrous Sulfate (Ec)) 325 mg BID PO ; Start 09/21/16 at 21:00 Losartan Potassium (Cozaar) 50 mg DAILY PO ; Start 09/22/16 at 09:00 Metoprolol Succinate (Toprol Xl) 50 mg BID PO ; Start 09/21/16 at 21:00 Atorvastatin Calcium (Lipitor) 40 mg DAILY@21 PO ; Start 09/21/16 at 21:00 Insulin Aspart (Novolog Insulin Pen) NOVOLOG *MILD* ALGORITHM Q4H SC Last administered on 09/21/16 11:28; Admin Dose 2 UNIT; Start 09/21/16 at 10:00 Furosemide (Lasix) 40 mg DAILY IV Last administered on 09/21/16 11:20; Admin Dose 40 MG; Start 09/21/16 at 10:00 Miscellaneous Information 1 ea NOTE XX ; Start 09/21/16 at 10:00 Glucose (Glutose) 15 gm Q15M PRN PO DECREASED GLUCOSE; Start 09/21/16 at 10:00 Glucose (Glutose) 22.5 gm Q15M PRN PO DECREASED GLUCOSE; Start 09/21/16 at 10: 00 Dextrose (D50w Syringe) 25 ml Q15M PRN IV DECREASED GLUCOSE; Start 09/21/16 at 10:00 Dextrose (D50w Syringe) 50 ml Q15M PRN IV DECREASED GLUCOSE; Start 09/21/16 at 10:00 Glucagon (Glucagen) 1 mg Q15M PRN IM DECREASED GLUCOSE; Start 09/21/16 at 10:00 Glucose (Glutose) 15 gm Q15M PRN BUCCAL DECREASED GLUCOSE; Start 09/21/16 at 10 :00 MAGALY DUNLAP MD September 21, 2016 12:56
[2016-09-21 17:14] LABS: AADO2 Arterial 181.6 mmHg (7.0-24.0); Allen Test ACCEPTAB; Arterial Base Excess 3.1 mmol/L (-3.0-3); Arterial COHb 0.3 % (0.0-3.0); Arterial Fraction of Oxyhgb 98.1 % (93.0-99.0); Arterial MetHb 0.4 % (0.0-1.5); Arterial Total Hemglobin 9.5 g/dl (12.0-18.0); MODE VENT - AC
[2016-09-21] MEDS: NACL 3% 500 ML IV SCH (17:30)
--- NOTE | 2016-09-21 18:50 | RADRPT ---
PROCEDURE: XR Chest. CLINICAL INDICATION: Shortness of breath. Nasogastric tube placement TECHNIQUE: A single portable view of the chest was obtained. COMPARISON: 09/21/2016 from 11:13 a.m. FINDINGS: A nasogastric tube is seen in the gastric lumen, the tip of which is not visualized. The endotrache al tube is essentially unchanged. The aorta is tortuous and atherosclerotic. The cardiomediastinal silhouette is otherwise enlarged and is stable. Diffuse pulmonary vascular congestion is seen with likely underlying pulmonary edema and is stable. Bilateral pleural effusions are again noted and ar e unchanged. The soft tissues and osseous structures demonstrate benign age related senescent change s. IMPRESSION: 1. Interval placement of a nasogastric tube in the gastric lumen, the tip of which is not visualize d. Consider a KUB to visualize the tip of the nasogastric tube as clinically warranted. 2. Radiographic findings of congestive heart failure again seen which is stable. RPTAT: HPNM Physician Kandace Date Time Electronically viewed and signed by Physician Kandace on 09/21/2016 18:49 /
[2016-09-21] MEDS: ACETAMINOPHEN 650 MG SUPP PR PRN (20:26)
[2016-09-21] MEDS: ATORVASTATIN 40 MG TAB PO SCH (20:33)
[2016-09-21] MEDS ORDERED: METOPROLOL (XL) 50 MG TAB PO SCH (21:00)
[2016-09-21] MEDS ORDERED: FERROUS SULFATE (EC) 325 MG TAB PO SCH (21:00)
[2016-09-21] MEDS ORDERED: VANCOMYCIN IV PER PHARMACY XX SCH (23:30)
[2016-09-22] VITALS (36 sets, daily range): BP systolic 90–141; BP diastolic 50–70; PULSE 80–94; RESP 16–23
[2016-09-22] MEDS ORDERED: VANCOMYCIN 1.75 GM in NS 500 ML IVPB ONE ×2
[2016-09-22] MEDS: INSULIN ASPART [NOVOLOG] 3 ML PEN SC SCH ×6 (02:00→22:00)
[2016-09-22] MEDS: PANTOPRAZOLE 40 MG INJ IV SCH (05:39)
[2016-09-22 06:01] LABS: ADD SCAN DIFF NO
[2016-09-22 06:07] LABS: ABNORMAL IP MESSAGE 1; BASOPHILS % 0.1 % (0.0-2.0); EOSINOPHILS % 0.1 % (0.0-7.0); HEMATOCRIT 28.7 % (37.0-47.0); LYMPHOCYTES # 0.6 10^3/ul (0.8-2.9); LYMPHOCYTES % 7.9 % (15.0-51.0); MEAN CORPUSCULAR HEMOGLOBIN 28.2 pg (29.0-33.0); MEAN CORPUSCULAR HGB CONC 31.4 g/dl (32.0-37.0); MEAN PLATELET VOLUME 12.2 fl (7.4-10.4); MONOCYTE # 0.6 10^3/ul (0.3-0.9); MONOCYTES % 8.3 % (0.0-11.0); NEUTROPHIL # 5.8 10^3/ul (1.6-7.5); PLATELET COUNT 90 10^3/UL (140-415); RED BLOOD COUNT 3.19 10^6/ul (4.20-5.40); RED CELL DISTRIBUTION WIDTH 17.4 % (11.5-14.5)
[2016-09-22] MEDS: LEVOTHYROXINE 100 MCG TAB PO SCH (06:11)
[2016-09-22 06:29] LABS: ALBUMIN 2.7 g/dl (3.3-4.9); ALBUMIN/GLOBULIN RATIO 0.69; BILIRUBIN,INDIRECT 1.2 mg/dl (0-1.1); BILIRUBIN,TOTAL 1.2 mg/dl (0.2-1.3); CALCIUM 8.1 mg/dl (8.4-10.2); CREATININE 0.95 mg/dl (0.44-1.00); POTASSIUM 3.7 mmol/L (3.5-5.1); TOTAL PROTEIN 6.6 g/dl (6.1-8.1)
--- NOTE | 2016-09-22 07:00 | RADRPT ---
PROCEDURE: XR Chest. CLINICAL INDICATION: Respiratory failure TECHNIQUE: An AP view of the chest was obtained. COMPARISON: Chest x-ray dated 09/21/2016 FINDINGS: The endotracheal tube tip is approximately 3.5 cm above the luz marina. The tip of the enteric tube ex tends below the left diaphragm. There is a single lead left subclavian AICD. There are diffuse bilateral interstitial opacities with small bilateral pleural effusions. No pneu mothorax is seen. The cardiomediastinal silhouette is mildly enlarged . Calcifications are seen wi thin the aortic arch. The osseous structures demonstrate senescent changes. IMPRESSION: 1. Findings suggestive of interstitial edema with small bilateral pleural effusions. Lung aeration is mildly improved when compared to the prior examination. 2. Mild cardiomegaly and aortic atherosclerosis. 3. Tubes and lines, as described above. RPTAT: HH .Agnieszka Gómez MD, MD Date Time Electronically viewed and signed by .Agnieszka Gómez MD, on 09/22/2016 07:00 .G/
[2016-09-22 07:27] LABS: CHOL/HDL RATIO 6.5 RATIO; MAGNESIUM 1.8 mg/dl (1.7-2.5); PHOSPHORUS 4.3 mg/dl (2.5-4.9)
[2016-09-22 07:58] LABS: THYROID STIMULATING HORMONE 3.9 MIU/L (0.465-4.680)
[2016-09-22 08:31] LABS: AADO2 Arterial 124.5 mmHg (7.0-24.0); Allen Test ACCEPTAB; Arterial Base Excess 1.9 mmol/L (-3.0-3); Arterial COHb 0.5 % (0.0-3.0); Arterial Fraction of Oxyhgb 97.4 % (93.0-99.0); Arterial MetHb 0.4 % (0.0-1.5); Arterial Total Hemglobin 9.6 g/dl (12.0-18.0); MODE VENT - AC
--- NOTE | 2016-09-22 08:53 | CONS ---
Date/Time of Note Date/Time of Note DATE: 09/22/16 TIME: 08:47 Assessment/Plan Assessment/Plan Chief Complaint/Hosp Course History obtained from patient's daughters who were at bedside. Patient not feeling well past few days but this did not seem major. This morning, daughter heard the patient gagging or retching in kitchen. She found her standing over the sink with head in hand obviously in distress and complaining of severe headache. Daughter tried to help her to the couch, but the patient collapsed before going even several feet. She was guided to the ground and the daughter called 911. Patient transferred to ER where she had altered status and was hypertensive. CT obtained and patient intubated for airway protection. The patient was taking Eliquis. She received PCC and vitamin K in the ER. Problems: (1) Cerebral hemorrhage Status: Acute Comment: Patient is actually improved a bit neurologically compared to yesterday with restored brainstem reflexes and with clearly better motor response to stim on the R. Continue current measures including management of ICP. Improvement likely due to better fluid balance with 3% NaCl. Can go further than this since serum Na still only 139. Recommend: 1. Continue ICU management 2. Avoid fluid overload. Management of IVs critical - Continue 3% NaCl with goal serum Na+ over 145 if possible - No hypotonic solutions 3. Hyperventilation, HOB elevated. 4. Repeat CT today. Consultation Date/Type/Reason Admit Date/Time September 21, 2016 at 08:29 Initial Consult Date 09/21/16 Type of Consultation: Neurosurgery 24 HR Interval Summary Free Text/Dictation She remains intubated; Daughter at bedside reports that patient seems more responsive. Subjective hx not possible: pt non-verbal, pt critical Exam/Review of Systems Vital Signs Vitals Vital Signs Date Time Temp Pulse Resp B/P Pulse Ox O2 Delivery O2 Flow Rate FiO2 09/22/16 06:00 80 20 117/60 99 09/22/16 05:13 40 09/22/16 04:00 98.8 09/22/16 04:00 Mechanical Ventilator Intake and Output 09/21/16 09/21/16 09/22/16 15:00 23:00 07:00 Intake Total 1293 ml 150 ml 210 ml Output Total 1370 ml 335 ml 330 ml Balance -77 ml -185 ml -120 ml Exam Constitutional: non-verbal ENMT: intubated Neurological: other (pupils 3mm bilateral, ? reactive; corneals present bilaterally; strong cough reflex; localizes to stim on L; localizes vs withdraws on R) Results Result Diagram: 09/22/16 0535 09/22/16 0535 Results 24 hrs Laboratory Tests Test 09/21/16 11:25 09/21/16 14:54 09/21/16 16:52 09/21/16 17:30 Bedside Glucose 184 151 Blood Gas Specimen Source Blood arterial Arterial Blood Date Drawn 09/21/2016 5:00:15 PM Arterial Blood pH (Temp corrected) 7.510 H Arterial Blood pCO2 (Temp correct) 33.3 L Arterial Blood pO2 (Temp corrected) 137.4 H Arterial Blood HCO3 26.0 Arterial Blood Base Excess 3.1 H Arterial Blood Oxygen Saturation 98.8 Rajendra Test ACCEPTAB Arterial Blood Gas Puncture Site Right Radial Arterial Blood Carboxyhemoglobin 0.3 Arterial Blood Methemoglobin 0.4 Blood Gas A-a O2 Differential 181.6 H Oxyhemoglobin Percent 98.1 Total Hemoglobin 9.5 L Blood Gas Temperature 37.0 Blood Gas Respiration Rate 18.0 Blood Gas Actual Respiration Rate 18 Blood Gas Modality VENT - AC FiO2 50.0 Blood Gas Tidal Volume 450.0 Blood Gas Notified Whom TM Blood Gas Notified Time 09/21/2016 5:14:38 PM Troponin I 0.016 Test 09/21/16 17:42 09/21/16 21:46 09/22/16 00:33 09/22/16 02:30 Bedside Glucose 137 123 127 Troponin I 0.049 Test 09/22/16 05:35 09/22/16 05:39 09/22/16 07:00 White Blood Count 7.0 Red Blood Count 3.19 L Hemoglobin 9.0 L Hematocrit 28.7 L Mean Corpuscular Volume 90.0 Mean Corpuscular Hemoglobin 28.2 L Mean Corpuscular Hemoglobin Concent 31.4 L Red Cell Distribution Width 17.4 H Platelet Count 90 L Mean Platelet Volume 12.2 H Neutrophils % 83.0 H Lymphocytes % 7.9 L Monocytes % 8.3 Eosinophils % 0.1 Basophils % 0.1 Nucleated Red Blood Cells % 0.0 Neutrophils # 5.8 Lymphocytes # 0.6 L Monocytes # 0.6 Eosinophils # 0.0 Basophils # 0.0 Nucleated Red Blood Cells # 0.0 Sodium Level 139 Potassium Level 3.7 Chloride Level 108 Carbon Dioxide Level 28 Anion Gap 7 #L Blood Urea Nitrogen 18 Creatinine 0.95 Glucose Level 121 Hemoglobin A1c 5.4 Calcium Level 8.1 L Phosphorus Level 4.3 Magnesium Level 1.8 Total Bilirubin 1.2 Direct Bilirubin 0.00 Indirect Bilirubin 1.2 H Aspartate Amino Transf (AST/SGOT) 43 Alanine Aminotransferase (ALT/SGPT) 37 Alkaline Phosphatase 96 Troponin I 0.057 Total Protein 6.6 # Albumin 2.7 L Globulin 3.90 H Albumin/Globulin Ratio 0.69 Triglycerides Level 127 Cholesterol Level 163 LDL Cholesterol, Calculated 113 HDL Cholesterol 25 L Cholesterol/HDL Ratio 6.5 Thyroid Stimulating Hormone (TSH) 3.900 Free Thyroxine 2.06 Bedside Glucose 121 Blood Gas Specimen Source Blood arterial Arterial Blood Date Drawn 09/22/2016 7:50:37 AM Arterial Blood pH (Temp corrected) 7.490 H Arterial Blood pCO2 (Temp correct) 33.6 L Arterial Blood pO2 (Temp corrected) 122.1 H Arterial Blood HCO3 25.0 Arterial Blood Base Excess 1.9 Arterial Blood Oxygen Saturation 98.3 Rajendra Test ACCEPTAB Arterial Blood Gas Puncture Site Right Radial Arterial Blood Carboxyhemoglobin 0.5 Arterial Blood Methemoglobin 0.4 Blood Gas A-a O2 Differential 124.5 H Oxyhemoglobin Percent 97.4 Total Hemoglobin 9.6 L Blood Gas Temperature 37.0 Blood Gas Respiration Rate 18.0 Blood Gas Actual Respiration Rate 18 Blood Gas Modality VENT - AC FiO2 40.0 Blood Gas Tidal Volume 450.0 Blood Gas Low PEEP Setting 5.0 Blood Gas Notified Whom JLD Blood Gas Notified Time 09/22/2016 8:06:25 AM Medications Medications Current Medications Ondansetron HCl (Zofran Inj) 4 mg Q6H PRN IV NAUSEA AND/OR VOMITING; Start at 09:00 Acetaminophen (Tylenol Supp) [address] PAIN LEVEL 1-3 OR FEVER Last administered on 09/21/16 20:26; Admin Dose 650 MG; Start 09/21/16 at 09:00 Morphine Sulfate (morphine) 2 mg Q4H PRN IV PAIN LEVEL 7-10; Start 09/21/16 at 09:00 Pantoprazole (Protonix Iv) 40 mg DAILY@06 IV Last administered on 09/22/16 05: 39; Admin Dose 40 MG; Start 09/22/16 at 06:00 Lorazepam 1 mg 1 mg Q2H PRN IV Seizures; Start 09/21/16 at 09:30 Propofol (Diprivan) 100 ml @ 1.95 mls/hr Q12H IV ; Start 09/21/16 at 09:30 Amiodarone HCl (Cordarone) 200 mg DAILY PO ; Start 09/22/16 at 09:00 Digoxin (Digoxin) 0.125 mg DAILY PO ; Start 09/22/16 at 09:00 Ferrous Sulfate (Ferrous Sulfate (Ec)) 325 mg BID PO Last administered on 20:33; Admin Dose 325 MG; Start 09/21/16 at 21:00 Losartan Potassium (Cozaar) 50 mg DAILY PO ; Start 09/22/16 at 09:00 Metoprolol Succinate (Toprol Xl) 50 mg BID PO Last administered on 09/21/16 21 :44; Admin Dose 50 MG; Start 09/21/16 at 21:00 Atorvastatin Calcium (Lipitor) 40 mg DAILY@21 PO Last administered on 20:33; Admin Dose 40 MG; Start 09/21/16 at 21:00 Insulin Aspart (Novolog Insulin Pen) NOVOLOG *MILD* ALGORITHM Q4H SC Last administered on 09/21/16 14:56; Admin Dose 1 UNIT; Start 09/21/16 at 10:00 Furosemide (Lasix) 40 mg DAILY IV Last administered on 09/21/16 11:20; Admin Dose 40 MG; Start 09/21/16 at 10:00 Miscellaneous Information 1 ea NOTE XX ; Start 09/21/16 at 10:00 Glucose (Glutose) 15 gm Q15M PRN PO DECREASED GLUCOSE; Start 09/21/16 at 10:00 Glucose (Glutose) 22.5 gm Q15M PRN PO DECREASED GLUCOSE; Start 09/21/16 at 10: 00 Dextrose (D50w Syringe) 25 ml Q15M PRN IV DECREASED GLUCOSE; Start 09/21/16 at 10:00 Dextrose (D50w Syringe) 50 ml Q15M PRN IV DECREASED GLUCOSE; Start 09/21/16 at 10:00 Glucagon (Glucagen) 1 mg Q15M PRN IM DECREASED GLUCOSE; Start 09/21/16 at 10:00 Glucose 15 gm 15 gm Q15M PRN BUCCAL DECREASED GLUCOSE; Start 09/21/16 at 10:00 Sodium Chloride 500 ml @ 30 mls/hr [id number] IV Last administered on 09/21/16t 17:30; Admin Dose 30 MLS/HR; Start 09/21/16 at 17:00 Vancomycin HCl/ Sodium Chloride (Vancocin/NS) 250 ml @ 83.333 mls/ hr Q24H IVPB ; Start 09/23/16 at 00:00 MAGALY DUNLAP MD September 22, 2016 08:53
--- NOTE | 2016-09-22 09:00 | PN ---
Date/Time of Note Date/Time of Note DATE: 09/22/16 TIME: 08:56 Assessment/Plan VTE Prophylaxis VTE Prophylaxis Intervention: SCD's Lines/Catheters IV [facility]ter Type (from [facility] Peripheral IV Urinary Cath still in place: Yes Reason Cath still needed: other (indicate) Assessment/Plan Chief Complaint/Hosp Course 1. Intracranial bleeding including intraparenchymal hematoma and bilateral subdural hematomas with midline shift. Neurosurgery on the case. Continue ICP lowering measures including hyperventilation. The patient will be maintained on seizure precautions. No surgical interventions as of now. 2. Accelerated hypertension. Continue antihypertensives as per cardiology recommendations. 3. Atrial fibrillation. The patient's heart rate is currently controlled. The patient will be continued on amiodarone and digoxin. 4. Cardiomyopathy with ejection fraction of 30% with stage III and stage IV diastolic dysfunction. The patient will be continued on beta blockers and ARB' s. 5. Hypothyroidism. The patient will be continued on Synthroid. Thyroid function panel will be obtained on this patient. 6. Hyperlipidemia. The patient's statins will be resumed. A fasting lipid panel will be obtained. 7. Type 2 diabetes mellitus. The patient's metformin will be put on hold. The patient will be started on sliding scale insulin. Hemoglobin A1c will be obtained to evaluate the blood glucose control over the past few weeks. 8. Normocytic anemia. The patient has a history of iron deficiency. The patient will be continued on iron supplements. 9. Thrombocytopenia. The patient will be monitored for any bleeding. Avoid any antiplatelet or anticoagulants. 10. Sepsis with underlying gram-positive bacteremia. The patient was started on vancomycin. No evidence of any septic shock. Will involve infectious diseases on the case. 11. Fluids, electrolytes, and nutrition. N.p.o. 12. DVT prophylaxis. Bilateral sequential compression devices. 13. Gastrointestinal prophylaxis. Proton pump inhibitors. 14. Plan. Continue ICU monitoring. Continue ICP lowering measures including elevation of hyperbaric, hyperventilation, and keeping the sodium high. Called infectious diseases consult. Case discussed with Dr. Shrestha. Plan of care was explained to the patient's family was at the bedside. Critical care time: 35 minutes. Problems: Subjective 24 Hr Interval Summary Free Text/Dictation The patient has purposeful movement of the left upper extremity. Right upper extremity withdraws to pain. Bilateral lower extremities withdraw to pain. Remains off sedation. Exam/Review of Systems Vital Signs Vitals Vital Signs Date Time Temp Pulse Resp B/P Pulse Ox O2 Delivery O2 Flow Rate FiO2 09/22/16 06:00 80 20 117/60 99 09/22/16 05:13 40 09/22/16 04:00 98.8 09/22/16 04:00 Mechanical Ventilator Intake and Output 09/21/16 09/21/16 09/22/16 14:59 22:59 06:59 Intake Total 1293 ml 120 ml 240 ml Output Total 1280 ml 385 ml 370 ml Balance 13 ml -265 ml -130 ml Exam GENERAL: This is an elderly female patient lying in bed, orally intubated and mechanically ventilated. HEENT: Head normocephalic and atraumatic. Eyes: Anicteric sclerae. Conjunctivae clear. Pupils are slightly sure reactive bilaterally. ENT: Nasal septum is midline. Oral mucosa is dry. Orally intubated. NECK: Supple. No JVD noticed. RESPIRATORY: Bilaterally diminished breath sounds. No adventitious breath sounds heard. On AC mode ventilation. CARDIAC: Regular rate and rhythm. S1, S2 heard. Grade III/ systolic ejection murmur. ABDOMEN: Soft, scaphoid. Nontender. Bowel sounds hypoactive in all 4 quadrants. GENITOURINARY: The patient has a Macedo catheter in place. EXTREMITIES: No cyanosis, no clubbing, no edema. Peripheral pulses are palpable. NEUROLOGIC: The patient is unresponsive. Has some purposeful movement of the left upper extremity. Withdrawal to pain of bilateral lower extremities and right upper external. Results Result Diagram: 09/22/16 0535 09/22/16 0535 Results 24 hrs Laboratory Tests Test 09/21/16 11:25 09/21/16 14:54 09/21/16 16:52 09/21/16 17:30 Bedside Glucose 184 151 Blood Gas Specimen Source Blood arterial Arterial Blood Date Drawn 09/21/2016 5:00:15 PM Arterial Blood pH (Temp corrected) 7.510 H Arterial Blood pCO2 (Temp correct) 33.3 L Arterial Blood pO2 (Temp corrected) 137.4 H Arterial Blood HCO3 26.0 Arterial Blood Base Excess 3.1 H Arterial Blood Oxygen Saturation 98.8 Rajendra Test ACCEPTAB Arterial Blood Gas Puncture Site Right Radial Arterial Blood Carboxyhemoglobin 0.3 Arterial Blood Methemoglobin 0.4 Blood Gas A-a O2 Differential 181.6 H Oxyhemoglobin Percent 98.1 Total Hemoglobin 9.5 L Blood Gas Temperature 37.0 Blood Gas Respiration Rate 18.0 Blood Gas Actual Respiration Rate 18 Blood Gas Modality VENT - AC FiO2 50.0 Blood Gas Tidal Volume 450.0 Blood Gas Notified Whom TM Blood Gas Notified Time 09/21/2016 5:14:38 PM Troponin I 0.016 Test 09/21/16 17:42 09/21/16 21:46 09/22/16 00:33 09/22/16 02:30 Bedside Glucose 137 123 127 Troponin I 0.049 Test 09/22/16 05:35 09/22/16 05:39 09/22/16 07:00 White Blood Count 7.0 Red Blood Count 3.19 L Hemoglobin 9.0 L Hematocrit 28.7 L Mean Corpuscular Volume 90.0 Mean Corpuscular Hemoglobin 28.2 L Mean Corpuscular Hemoglobin Concent 31.4 L Red Cell Distribution Width 17.4 H Platelet Count 90 L Mean Platelet Volume 12.2 H Neutrophils % 83.0 H Lymphocytes % 7.9 L Monocytes % 8.3 Eosinophils % 0.1 Basophils % 0.1 Nucleated Red Blood Cells % 0.0 Neutrophils # 5.8 Lymphocytes # 0.6 L Monocytes # 0.6 Eosinophils # 0.0 Basophils # 0.0 Nucleated Red Blood Cells # 0.0 Sodium Level 139 Potassium Level 3.7 Chloride Level 108 Carbon Dioxide Level 28 Anion Gap 7 #L Blood Urea Nitrogen 18 Creatinine 0.95 Glucose Level 121 Hemoglobin A1c 5.4 Calcium Level 8.1 L Phosphorus Level 4.3 Magnesium Level 1.8 Total Bilirubin 1.2 Direct Bilirubin 0.00 Indirect Bilirubin 1.2 H Aspartate Amino Transf (AST/SGOT) 43 Alanine Aminotransferase (ALT/SGPT) 37 Alkaline Phosphatase 96 Troponin I 0.057 Total Protein 6.6 # Albumin 2.7 L Globulin 3.90 H Albumin/Globulin Ratio 0.69 Triglycerides Level 127 Cholesterol Level 163 LDL Cholesterol, Calculated 113 HDL Cholesterol 25 L Cholesterol/HDL Ratio 6.5 Thyroid Stimulating Hormone (TSH) 3.900 Free Thyroxine 2.06 Bedside Glucose 121 Blood Gas Specimen Source Blood arterial Arterial Blood Date Drawn 09/22/2016 7:50:37 AM Arterial Blood pH (Temp corrected) 7.490 H Arterial Blood pCO2 (Temp correct) 33.6 L Arterial Blood pO2 (Temp corrected) 122.1 H Arterial Blood HCO3 25.0 Arterial Blood Base Excess 1.9 Arterial Blood Oxygen Saturation 98.3 Rajendra Test ACCEPTAB Arterial Blood Gas Puncture Site Right Radial Arterial Blood Carboxyhemoglobin 0.5 Arterial Blood Methemoglobin 0.4 Blood Gas A-a O2 Differential 124.5 H Oxyhemoglobin Percent 97.4 Total Hemoglobin 9.6 L Blood Gas Temperature 37.0 Blood Gas Respiration Rate 18.0 Blood Gas Actual Respiration Rate 18 Blood Gas Modality VENT - AC FiO2 40.0 Blood Gas Tidal Volume 450.0 Blood Gas Low PEEP Setting 5.0 Blood Gas Notified Whom JLD Blood Gas Notified Time 09/22/2016 8:06:25 AM Medications Medications Current Medications Ondansetron HCl (Zofran Inj) 4 mg Q6H PRN IV NAUSEA AND/OR VOMITING; Start at 09:00 Acetaminophen (Tylenol Supp) 650 mg Q4H PRN [place] PAIN LEVEL 1-3 OR FEVER Last administered on 09/21/16 20:26; Admin Dose 650 MG; Start 09/21/16 at 09:00 Morphine Sulfate (morphine) 2 mg Q4H PRN IV PAIN LEVEL 7-10; Start 09/21/16 at 09:00 Pantoprazole (Protonix Iv) 40 mg DAILY@06 IV Last administered on 09/22/16 05: 39; Admin Dose 40 MG; Start 09/22/16 at 06:00 Lorazepam 1 mg 1 mg Q2H PRN IV Seizures; Start 09/21/16 at 09:30 Propofol (Diprivan) 100 ml @ 1.95 mls/hr Q12H IV ; Start 09/21/16 at 09:30 Amiodarone HCl (Cordarone) 200 mg DAILY PO ; Start 09/22/16 at 09:00 Digoxin (Digoxin) 0.125 mg DAILY PO ; Start 09/22/16 at 09:00 Ferrous Sulfate (Ferrous Sulfate (Ec)) 325 mg BID PO Last administered on 20:33; Admin Dose 325 MG; Start 09/21/16 at 21:00 Losartan Potassium (Cozaar) 50 mg DAILY PO ; Start 09/22/16 at 09:00 Metoprolol Succinate (Toprol Xl) 50 mg BID PO Last administered on 09/21/16 21 :44; Admin Dose 50 MG; Start 09/21/16 at 21:00 Atorvastatin Calcium (Lipitor) 40 mg DAILY@21 PO Last administered on 20:33; Admin Dose 40 MG; Start 09/21/16 at 21:00 Insulin Aspart (Novolog Insulin Pen) NOVOLOG *MILD* ALGORITHM Q4H SC Last administered on 09/21/16 14:56; Admin Dose 1 UNIT; Start 09/21/16 at 10:00 Furosemide (Lasix) 40 mg DAILY IV Last administered on 09/21/16 11:20; Admin Dose 40 MG; Start 09/21/16 at 10:00 Miscellaneous Information 1 ea NOTE XX ; Start 09/21/16 at 10:00 Glucose (Glutose) 15 gm Q15M PRN PO DECREASED GLUCOSE; Start 09/21/16 at 10:00 Glucose (Glutose) 22.5 gm Q15M PRN PO DECREASED GLUCOSE; Start 09/21/16 at 10: 00 Dextrose (D50w Syringe) 25 ml Q15M PRN IV DECREASED GLUCOSE; Start 09/21/16 at 10:00 Dextrose (D50w Syringe) 50 ml Q15M PRN IV DECREASED GLUCOSE; Start 09/21/16 at 10:00 Glucagon (Glucagen) 1 mg Q15M PRN IM DECREASED GLUCOSE; Start 09/21/16 at 10:00 Glucose 15 gm 15 gm Q15M PRN BUCCAL DECREASED GLUCOSE; Start 09/21/16 at 10:00 Sodium Chloride 500 ml @ 30 mls/hr [id number] IV Last administered on 09/21/16 17:30; Admin Dose 30 MLS/HR; Start 09/21/16 at 17:00 Vancomycin HCl/ Sodium Chloride (Vancocin/NS) 250 ml @ 83.333 mls/ hr Q24H IVPB ; Start 09/23/16 at 00:00 MARTY HOLLAND NP September 22, 2016 09:00
[2016-09-22] MEDS: PROPOFOL 100 ML IV SCH ×2 (09:30→21:30)
[2016-09-22] MEDS: LOSARTAN 50 MG TAB PO SCH (09:58)
[2016-09-22] MEDS: AMIODARONE 200 MG TAB PO SCH (10:00)
[2016-09-22] MEDS: FUROSEMIDE 40 MG INJ IV SCH (10:00)
[2016-09-22] MEDS: DIGOXIN 0.125 MG TAB PO SCH (10:00)
[2016-09-22] MEDS: NACL 3% 500 ML IV SCH (10:04)
--- NOTE | 2016-09-22 10:13 | CONS ---
Date/Time of Note Date/Time of Note DATE: 09/22/16 TIME: 10:11 Consult Date/Type/Reason Admit Date/Time September 21, 2016 at 08:29 Initial Consult Date 09/21/16 Type of Consultation: Pulmonary ICU Subjective Patient continues mechanical ventilation follow simple commands off sedation Patient's family at bedside. Objective Vital Signs Date Time Temp Pulse Resp B/P Pulse Ox O2 Delivery O2 Flow Rate FiO2 09/22/16 08:00 92 09/22/16 06:00 20 117/60 99 09/22/16 05:13 40 09/22/16 04:00 98.8 09/22/16 04:00 Mechanical Ventilator Intake and Output 09/21/16 09/21/16 09/22/16 15:00 23:00 07:00 Intake Total 1293 ml 150 ml 210 ml Output Total 1370 ml 335 ml 330 ml Balance -77 ml -185 ml -120 ml Exam PHYSICAL EXAMINATION: GENERAL: Elderly-appearing lady, comfortable at rest, no acute distress. Intubated on mechanical ventilation VITAL SIGNS: As above HEENT: Dry mucous membranes. Pupils are sluggish, minimally reactive. CARDIAC: S1, S2, no added sounds or murmurs. CHEST: Diminished air entry bilaterally. ABDOMEN: Soft, nontender. No guarding or rebound. EXTREMITIES: No cyanosis, clubbing, edema. NEUROLOGIC: Right hemiplegia Results/Medications Result Diagram: 09/22/16 0535 09/22/16 0535 Results 24 hrs Laboratory Tests Test 09/21/16 11:25 09/21/16 14:54 09/21/16 16:52 09/21/16 17:30 Bedside Glucose 184 151 Blood Gas Specimen Source Blood arterial Arterial Blood Date Drawn 09/21/2016 5:00:15 PM Arterial Blood pH (Temp corrected) 7.510 H Arterial Blood pCO2 (Temp correct) 33.3 L Arterial Blood pO2 (Temp corrected) 137.4 H Arterial Blood HCO3 26.0 Arterial Blood Base Excess 3.1 H Arterial Blood Oxygen Saturation 98.8 Rajendra Test ACCEPTAB Arterial Blood Gas Puncture Site Right Radial Arterial Blood Carboxyhemoglobin 0.3 Arterial Blood Methemoglobin 0.4 Blood Gas A-a O2 Differential 181.6 H Oxyhemoglobin Percent 98.1 Total Hemoglobin 9.5 L Blood Gas Temperature 37.0 Blood Gas Respiration Rate 18.0 Blood Gas Actual Respiration Rate 18 Blood Gas Modality VENT - AC FiO2 50.0 Blood Gas Tidal Volume 450.0 Blood Gas Notified Whom TM Blood Gas Notified Time 09/21/2016 5:14:38 PM Troponin I 0.016 Test 09/21/16 17:42 09/21/16 21:46 09/22/16 00:33 09/22/16 02:30 Bedside Glucose 137 123 127 Troponin I 0.049 Test 09/22/16 05:35 09/22/16 05:39 09/22/16 07:00 White Blood Count 7.0 Red Blood Count 3.19 L Hemoglobin 9.0 L Hematocrit 28.7 L Mean Corpuscular Volume 90.0 Mean Corpuscular Hemoglobin 28.2 L Mean Corpuscular Hemoglobin Concent 31.4 L Red Cell Distribution Width 17.4 H Platelet Count 90 L Mean Platelet Volume 12.2 H Neutrophils % 83.0 H Lymphocytes % 7.9 L Monocytes % 8.3 Eosinophils % 0.1 Basophils % 0.1 Nucleated Red Blood Cells % 0.0 Neutrophils # 5.8 Lymphocytes # 0.6 L Monocytes # 0.6 Eosinophils # 0.0 Basophils # 0.0 Nucleated Red Blood Cells # 0.0 Sodium Level 139 Potassium Level 3.7 Chloride Level 108 Carbon Dioxide Level 28 Anion Gap 7 #L Blood Urea Nitrogen 18 Creatinine 0.95 Glucose Level 121 Hemoglobin A1c 5.4 Calcium Level 8.1 L Phosphorus Level 4.3 Magnesium Level 1.8 Total Bilirubin 1.2 Direct Bilirubin 0.00 Indirect Bilirubin 1.2 H Aspartate Amino Transf (AST/SGOT) 43 Alanine Aminotransferase (ALT/SGPT) 37 Alkaline Phosphatase 96 Troponin I 0.057 Total Protein 6.6 # Albumin 2.7 L Globulin 3.90 H Albumin/Globulin Ratio 0.69 Triglycerides Level 127 Cholesterol Level 163 LDL Cholesterol, Calculated 113 HDL Cholesterol 25 L Cholesterol/HDL Ratio 6.5 Thyroid Stimulating Hormone (TSH) 3.900 Free Thyroxine 2.06 Bedside Glucose 121 Blood Gas Specimen Source Blood arterial Arterial Blood Date Drawn 09/22/2016 7:50:37 AM Arterial Blood pH (Temp corrected) 7.490 H Arterial Blood pCO2 (Temp correct) 33.6 L Arterial Blood pO2 (Temp corrected) 122.1 H Arterial Blood HCO3 25.0 Arterial Blood Base Excess 1.9 Arterial Blood Oxygen Saturation 98.3 Rajendra Test ACCEPTAB Arterial Blood Gas Puncture Site Right Radial Arterial Blood Carboxyhemoglobin 0.5 Arterial Blood Methemoglobin 0.4 Blood Gas A-a O2 Differential 124.5 H Oxyhemoglobin Percent 97.4 Total Hemoglobin 9.6 L Blood Gas Temperature 37.0 Blood Gas Respiration Rate 18.0 Blood Gas Actual Respiration Rate 18 Blood Gas Modality VENT - AC FiO2 40.0 Blood Gas Tidal Volume 450.0 Blood Gas Low PEEP Setting 5.0 Blood Gas Notified Whom JLD Blood Gas Notified Time 09/22/2016 8:06:25 AM Medications Current Medications Ondansetron HCl (Zofran Inj) 4 mg Q6H PRN IV NAUSEA AND/OR VOMITING; Start at 09:00 Acetaminophen (Tylenol Supp) 650 mg Q4H PRN [place] PAIN LEVEL 1-3 OR FEVER Last administered on 09/21/16 20:26; Admin Dose 650 MG; Start 09/21/16 at 09:00 Morphine Sulfate (morphine) 2 mg Q4H PRN IV PAIN LEVEL 7-10; Start 09/21/16 at 09:00 Pantoprazole (Protonix Iv) 40 mg DAILY@06 IV Last administered on 09/22/16 05: 39; Admin Dose 40 MG; Start 09/22/16 at 06:00 Lorazepam 1 mg 1 mg Q2H PRN IV Seizures; Start 09/21/16 at 09:30 Propofol (Diprivan) 100 ml @ 1.95 mls/hr Q12H IV ; Start 09/21/16 at 09:30 Amiodarone HCl (Cordarone) 200 mg DAILY PO Last administered on 09/22/16 10:00 ; Admin Dose 200 MG; Start 09/22/16 at 09:00 Digoxin (Digoxin) 0.125 mg DAILY PO Last administered on 09/22/16 10:00; Admin Dose 0.125 MG; Start 09/22/16 at 09:00 Losartan Potassium (Cozaar) 50 mg DAILY PO ; Start 09/22/16 at 09:00 Atorvastatin Calcium (Lipitor) 40 mg DAILY@21 PO Last administered on 20:33; Admin Dose 40 MG; Start 09/21/16 at 21:00 Insulin Aspart (Novolog Insulin Pen) NOVOLOG *MILD* ALGORITHM Q4H SC Last administered on 09/21/16 14:56; Admin Dose 1 UNIT; Start 09/21/16 at 10:00 Furosemide (Lasix) 40 mg DAILY IV Last administered on 09/22/16t 10:00; Admin Dose 40 MG; Start 09/21/16 at 10:00 Miscellaneous Information 1 ea NOTE XX ; Start 09/21/16 at 10:00 Glucose (Glutose) 15 gm Q15M PRN PO DECREASED GLUCOSE; Start 09/21/16 at 10:00 Glucose (Glutose) 22.5 gm Q15M PRN PO DECREASED GLUCOSE; Start 09/21/16 at 10: 00 Dextrose (D50w Syringe) 25 ml Q15M PRN IV DECREASED GLUCOSE; Start 09/21/16 at 10:00 Dextrose (D50w Syringe) 50 ml Q15M PRN IV DECREASED GLUCOSE; Start 09/21/16 at 10:00 Glucagon (Glucagen) 1 mg Q15M PRN IM DECREASED GLUCOSE; Start 09/21/16 at 10:00 Glucose 15 gm 15 gm Q15M PRN BUCCAL DECREASED GLUCOSE; Start 09/21/16 at 10:00 Sodium Chloride 500 ml @ 30 mls/hr [id number] IV Last administered on 09/22/16t 10:04; Admin Dose 30 MLS/HR; Start 09/21/16 at 17:00 Vancomycin HCl/ Sodium Chloride (Vancocin/NS) 250 ml @ 83.333 mls/ hr Q24H IVPB ; Start 09/23/16 at 00:00 Metoprolol Tartrate (Lopressor) 50 mg BID NGT ; Start 09/22/16 at 10:00 Ferrous Sulfate (Feosol Liquid Cup) 300 mg BID NGT ; Start 09/22/16 at 10:00 Assessment/Plan Chief Complaint/Hosp Course IMPRESSION: 1. Acute intracerebral bleed with midline shift. Not a neurosurgical candidate 2. History of anticoagulation with Eliquis for atrial fibrillation. Status post correction 3. Pacemaker placement. 4. Recent non-ST elevation myocardial infarction. PLAN: 1. Continue mechanical ventilation for hypoxemic respiratory failure and airway protection. 2. Neurosurgical recommendations. Currently not neurosurgical candidate 3. Blood pressure management. 4. DVT and GI prophylaxis. 5. Start tube feeding Disposition Family wish to continue current level of care We will give patient a few days to see if she makes neurological recovery Problems: MIKAYLA PISANO MD, [facility] September 22, 2016 10:13
[2016-09-22] MEDS: FERROUS SULFATE 60 MG/ML 5ML CUP NGT SCH ×3 (10:57→21:16)
[2016-09-22] MEDS: METOPROLOL 50 MG TAB NGT SCH ×2 (10:58→21:00)
--- NOTE | 2016-09-22 12:58 | CONS ---
Date/Time of Note Date/Time of Note DATE: 09/22/16 TIME: 12:50 Assessment/Plan Assessment/Plan Chief Complaint/Hosp Course IMPRESSION: 1. Congestive heart failure exacerbation, systolic, acute on chronic, by recent echocardiogram in 07/2016 revealing ejection fraction of 25%. 2. Cardiomyopathy with decreased left ventricular ejection fraction, last ejection fraction approximately 25% by echocardiogram 07/2016. 3. History of automatic implantable cardioverter-defibrillator. 4. History of paroxysmal atrial fibrillation, previously on systemic anticoagulation. 5. Subdural hematomas with midline shift and vasogenic edema- no sig change clinically overnight 6. Encephalopathy. 7. Hypertension. 8. Anemia. 9. Thrombocytopenia. Recc: -Tele -serial ecg's -Follow NRSG reccomendations for hypertonic saline/hypoventilation/increased na levels -Follow MS closly -NRSG following closely/serial CT's -Continue BB/losartan -Continue amio/digoxin -Continue gentle lasix diuresis and follow volume status closely Problems: Consultation Date/Type/Reason Admit Date/Time September 21, 2016 at 08:29 Initial Consult Date 09/21/16 Type of Consultation: Cardiology Reason for Consultation cardiomyopathy/PAF Referring Provider: LAINEY AGARWAL Exam/Review of Systems Vital Signs Vitals Vital Signs Date Time Temp Pulse Resp B/P Pulse Ox O2 Delivery O2 Flow Rate FiO2 09/22/16 08:00 92 09/22/16 06:00 20 117/60 99 09/22/16 05:13 40 09/22/16 04:00 98.8 09/22/16 04:00 Mechanical Ventilator Intake and Output 09/21/16 09/21/16 09/22/16 15:00 23:00 07:00 Intake Total 1293 ml 150 ml 240 ml Output Total 1370 ml 335 ml 330 ml Balance -77 ml -185 ml -90 ml Exam Review of Systems: CONSTITUTIONAL: No fevers, chills. PULMONARY: intubated CARDIOVASCULAR: No obvious chest pain/palpitations GASTROINTESTINAL: No nausea/vomiting. GENITOURINARY: No hematuria/dysuria. MUSCULOSKELETAL: No obvious nmyagias/arthalgias. PSYCHIATRIC: No documented depression. NEUROLOGIC: encephalopathic Constitutional: other (encephalopathic) Psych: no complaints Head: normocephalic ENMT: mucosa pink and moist Neck: jvd (9 cm water), supple Respiratory: other (upper airway rhoncherous sounds) Cardiovascular: regular rate and rhythm Gastrointestinal: non-tender, soft Musculoskeletal: muscle tone (normal) Extremities: edema (none) Neurological: other (Encephalopathic) Results Result Diagram: 09/22/16 0535 09/22/16 0535 Results 24 hrs Laboratory Tests Test 09/21/16 14:54 09/21/16 16:52 09/21/16 17:30 09/21/16 17:42 Bedside Glucose 151 137 Blood Gas Specimen Source Blood arterial Arterial Blood Date Drawn 09/21/2016 5:00:15 PM Arterial Blood pH (Temp corrected) 7.510 H Arterial Blood pCO2 (Temp correct) 33.3 L Arterial Blood pO2 (Temp corrected) 137.4 H Arterial Blood HCO3 26.0 Arterial Blood Base Excess 3.1 H Arterial Blood Oxygen Saturation 98.8 Rajendra Test ACCEPTAB Arterial Blood Gas Puncture Site Right Radial Arterial Blood Carboxyhemoglobin 0.3 Arterial Blood Methemoglobin 0.4 Blood Gas A-a O2 Differential 181.6 H Oxyhemoglobin Percent 98.1 Total Hemoglobin 9.5 L Blood Gas Temperature 37.0 Blood Gas Respiration Rate 18.0 Blood Gas Actual Respiration Rate 18 Blood Gas Modality VENT - AC FiO2 50.0 Blood Gas Tidal Volume 450.0 Blood Gas Notified Whom TM Blood Gas Notified Time 09/21/2016 5:14:38 PM Troponin I 0.016 Test 09/21/16 21:46 09/22/16 00:33 09/22/16 02:30 09/22/16 05:35 Bedside Glucose 123 127 Troponin I 0.049 0.057 White Blood Count 7.0 Red Blood Count 3.19 L Hemoglobin 9.0 L Hematocrit 28.7 L Mean Corpuscular Volume 90.0 Mean Corpuscular Hemoglobin 28.2 L Mean Corpuscular Hemoglobin Concent 31.4 L Red Cell Distribution Width 17.4 H Platelet Count 90 L Mean Platelet Volume 12.2 H Neutrophils % 83.0 H Lymphocytes % 7.9 L Monocytes % 8.3 Eosinophils % 0.1 Basophils % 0.1 Nucleated Red Blood Cells % 0.0 Neutrophils # 5.8 Lymphocytes # 0.6 L Monocytes # 0.6 Eosinophils # 0.0 Basophils # 0.0 Nucleated Red Blood Cells # 0.0 Sodium Level 139 Potassium Level 3.7 Chloride Level 108 Carbon Dioxide Level 28 Anion Gap 7 #L Blood Urea Nitrogen 18 Creatinine 0.95 Glucose Level 121 Hemoglobin A1c 5.4 Calcium Level 8.1 L Phosphorus Level 4.3 Magnesium Level 1.8 Total Bilirubin 1.2 Direct Bilirubin 0.00 Indirect Bilirubin 1.2 H Aspartate Amino Transf (AST/SGOT) 43 Alanine Aminotransferase (ALT/SGPT) 37 Alkaline Phosphatase 96 Total Protein 6.6 # Albumin 2.7 L Globulin 3.90 H Albumin/Globulin Ratio 0.69 Triglycerides Level 127 Cholesterol Level 163 LDL Cholesterol, Calculated 113 HDL Cholesterol 25 L Cholesterol/HDL Ratio 6.5 Thyroid Stimulating Hormone (TSH) 3.900 Free Thyroxine 2.06 Test 09/22/16 05:39 09/22/16 07:00 09/22/16 11:37 Bedside Glucose 121 125 Blood Gas Specimen Source Blood arterial Arterial Blood Date Drawn 09/22/2016 7:50:37 AM Arterial Blood pH (Temp corrected) 7.490 H Arterial Blood pCO2 (Temp correct) 33.6 L Arterial Blood pO2 (Temp corrected) 122.1 H Arterial Blood HCO3 25.0 Arterial Blood Base Excess 1.9 Arterial Blood Oxygen Saturation 98.3 Rajendra Test ACCEPTAB Arterial Blood Gas Puncture Site Right Radial Arterial Blood Carboxyhemoglobin 0.5 Arterial Blood Methemoglobin 0.4 Blood Gas A-a O2 Differential 124.5 H Oxyhemoglobin Percent 97.4 Total Hemoglobin 9.6 L Blood Gas Temperature 37.0 Blood Gas Respiration Rate 18.0 Blood Gas Actual Respiration Rate 18 Blood Gas Modality VENT - AC FiO2 40.0 Blood Gas Tidal Volume 450.0 Blood Gas Low PEEP Setting 5.0 Blood Gas Notified Whom JLD Blood Gas Notified Time 09/22/2016 8:06:25 AM Medications Medications Current Medications Ondansetron HCl (Zofran Inj) 4 mg Q6H PRN IV NAUSEA AND/OR VOMITING; Start at 09:00 Acetaminophen (Tylenol Supp) 650 mg Q4H PRN [place] PAIN LEVEL 1-3 OR FEVER Last administered on 09/21/16 20:26; Admin Dose 650 MG; Start 09/21/16 at 09:00 Morphine Sulfate (morphine) 2 mg Q4H PRN IV PAIN LEVEL 7-10; Start 09/21/16 at 09:00 Pantoprazole (Protonix Iv) 40 mg DAILY@06 IV Last administered on 09/22/16 05: 39; Admin Dose 40 MG; Start 09/22/16 at 06:00 Lorazepam 1 mg 1 mg Q2H PRN IV Seizures; Start 09/21/16 at 09:30 Propofol (Diprivan) 100 ml @ 1.95 mls/hr Q12H IV ; Start 09/21/16 at 09:30 Amiodarone HCl (Cordarone) 200 mg DAILY PO Last administered on 09/22/16 10:00 ; Admin Dose 200 MG; Start 09/22/16 at 09:00 Digoxin (Digoxin) 0.125 mg DAILY PO Last administered on 09/22/16 10:00; Admin Dose 0.125 MG; Start 09/22/16 at 09:00 Losartan Potassium (Cozaar) 50 mg DAILY PO ; Start 09/22/16 at 09:00 Atorvastatin Calcium (Lipitor) 40 mg DAILY@21 PO Last administered on 20:33; Admin Dose 40 MG; Start 09/21/16 at 21:00 Insulin Aspart (Novolog Insulin Pen) NOVOLOG *MILD* ALGORITHM Q4H SC Last administered on 09/21/16 14:56; Admin Dose 1 UNIT; Start 09/21/16 at 10:00 Furosemide (Lasix) 40 mg DAILY IV Last administered on 09/22/16 10:00; Admin Dose 40 MG; Start 09/21/16 at 10:00 Miscellaneous Information 1 ea NOTE XX ; Start 09/21/16 at 10:00 Glucose (Glutose) 15 gm Q15M PRN PO DECREASED GLUCOSE; Start 09/21/16 at 10:00 Glucose (Glutose) 22.5 gm Q15M PRN PO DECREASED GLUCOSE; Start 09/21/16 at 10: 00 Dextrose (D50w Syringe) 25 ml Q15M PRN IV DECREASED GLUCOSE; Start 09/21/16 at 10:00 Dextrose (D50w Syringe) 50 ml Q15M PRN IV DECREASED GLUCOSE; Start 09/21/16 at 10:00 Glucagon (Glucagen) 1 mg Q15M PRN IM DECREASED GLUCOSE; Start 09/21/16 at 10:00 Glucose 15 gm 15 gm Q15M PRN BUCCAL DECREASED GLUCOSE; Start 09/21/16 at 10:00 Sodium Chloride 500 ml @ 30 mls/hr [id number] IV Last administered on 5/19/17at 10:04; Admin Dose 30 MLS/HR; Start 09/21/16 at 17:00 Vancomycin HCl/ Sodium Chloride (Vancocin/NS) 250 ml @ 83.333 mls/ hr Q24H IVPB ; Start 09/23/16 at 00:00 Metoprolol Tartrate (Lopressor) 50 mg BID NGT ; Start 09/22/16 at 10:00 Ferrous Sulfate (Feosol Liquid Cup) 300 mg BID NGT ; Start 09/22/16 at 10:00 MATHEW AMADO September 22, 2016 12:58
--- NOTE | 2016-09-22 13:29 | RADRPT ---
PROCEDURE: CT Brain without contrast. CLINICAL INDICATION: Hemorrhage Neurologic deficit TECHNIQUE: A CT of the brain was performed on multidetector high-resolution CT scanner utilizing a xial sections from the skull base through the vertex without contrast. One or more of the following dose reduction techniques were used: Automated exposure control, Adjustment of the mA and/or kV acc ording to patient size, and/or use of iterative reconstruction technique. DOSE: CTDI = 42 mGy and the DLP = 720 mGy-cm. COMPARISON: Head CT 09/21/2016 FINDINGS: The large right frontal parenchymal hemorrhage is not significantly changed in size with surrounding edema. The bilateral cerebral convexity subdural hematomas appear slightly smaller and now measure 6 mm on the left and 8 mm on the right, previously 7 millimeter on the right and 10 mm on the left. The ventricles have mildly re-expanded. There is no longer effacement of the third ventricle. Foca l left posterior temporal subarachnoid hemorrhage is now seen. There is now 3 mm of leftward midlin e shift, previously 5 mm. There remains narrowing of the suprasellar cistern, however, decreased fro m prior. IMPRESSION: The large right frontal parenchymal hemorrhage is not significantly changed in size with surrounding edema. The bilateral cerebral convexity subdural hematomas are mildly decreased size. The ventricles have mildly re-expanded and there is no longer effacement of the third ventricle. Focal left posterior temporal subarachnoid hemorrhage is now seen. There is no longer effacement of the third ventricle. There is now 3 mm of leftward midline shift, previously 5 mm. There remains narrowing of the suprasellar cistern, however, decreased from prior. RPTAT: AA .Amilcar Guerrero MD, MD Date Time Electronically viewed and signed by .Amilcar Guerrero MD, MD on 09/22/2016 13:28 .T/
--- NOTE | 2016-09-22 19:30 | RADRPT ---
Vent Rate: 83 bpm RR Interval: 0 msec [place] Interval: 0 msec QRS Duration: 92 msec QT Interval: 404 msec QTC Interval: 474 msec P-R-T [place]: 0 - -2 - 0 degrees Demand pacemaker, interpretation is based on intrinsic rhythm Atrial fibrillation ST amp; T wave abnormality, consider anterolateral ischemia or digitalis effect Prolonged QT Abnormal ECG Electronically Signed By: Anthony East [id number]
[2016-09-22] MEDS: ATORVASTATIN 40 MG TAB PO SCH ×2 (21:00→21:17)
[2016-09-23] VITALS (37 sets, daily range): BP systolic 93–151; BP diastolic 48–69; PULSE 80–91; RESP 17–25
--- NOTE | 2016-09-23 00:06 | RADRPT ---
PROCEDURE: Chest. CLINICAL INDICATION: Chest pain. TECHNIQUE: 2 frontal views of the chest were obtained. COMPARISON: 09/22/2016. FINDINGS: There is a left-sided pacemaker. There is an endotracheal tube 4.5 cm above the luz [place]. There is a nasogastric tube extending to the stomach. The cardiac silhouette is enlarged. The aortic arch is calcified. There are hazy opacities bilaterally. There is mild bibasilar atelectasis and possible small left pleural effusion. There is no pneumothorax. IMPRESSION: Bilateral hazy opacities could represent pulmonary edema and/or multifocal pneumonia, slightly decre ased compared with the prior study. Mild bibasilar atelectasis and possible small left pleural effusion, unchanged. Cardiomegaly and aortic atherosclerosis. Endotracheal and nasogastric tubes in place. .Bernard Mendoza MD, Date Time Electronically viewed and signed by .Bernard Mendoza MD, MD on 09/23/2016 00:05 .T/
[2016-09-23] MEDS: VANCOMYCIN 1.25 GM in SOD CHLORIDE 0.9% 250 ML IVPB SCH (00:53)
[2016-09-23] MEDS: INSULIN ASPART [NOVOLOG] 3 ML PEN SC SCH ×6 (02:00→21:55)
[2016-09-23] MEDS: NACL 3% 500 ML IV SCH (02:58)
[2016-09-23] MEDS: PANTOPRAZOLE 40 MG INJ IV SCH (05:38)
[2016-09-23 05:48] LABS: ADD SCAN DIFF NO
[2016-09-23 05:54] LABS: ABNORMAL IP MESSAGE 1; HEMATOCRIT 29.9 % (37.0-47.0); HEMOGLOBIN 9.3 g/dl (12.0-16.0); LYMPHOCYTES # 0.7 10^3/ul (0.8-2.9); LYMPHOCYTES % 7.9 % (15.0-51.0); MEAN CORPUSCULAR HEMOGLOBIN 28.6 pg (29.0-33.0); MEAN CORPUSCULAR HGB CONC 31.1 g/dl (32.0-37.0); MEAN PLATELET VOLUME 13.1 fl (7.4-10.4); MONOCYTE # 0.6 10^3/ul (0.3-0.9); MONOCYTES % 7.1 % (0.0-11.0); NEUTROPHILS % 84.5 % (39.0-77.0); PLATELET COUNT 105 10^3/UL (140-415); RED BLOOD COUNT 3.25 10^6/ul (4.20-5.40); RED CELL DISTRIBUTION WIDTH 17.9 % (11.5-14.5); WHITE BLOOD COUNT 8.3 10^3/ul (4.8-10.8)
[2016-09-23 06:09] LABS: POTASSIUM 3.4 mmol/L (3.5-5.1)
[2016-09-23 06:12] LABS: CREATININE 1.02 mg/dl (0.44-1.00)
[2016-09-23 06:21] LABS: MAGNESIUM 1.9 mg/dl (1.7-2.5); PHOSPHORUS 3.4 mg/dl (2.5-4.9)
[2016-09-23] MEDS: LEVOTHYROXINE 100 MCG TAB PO SCH (06:30)
[2016-09-23] MEDS: DIGOXIN 0.125 MG TAB PO SCH (08:37)
[2016-09-23] MEDS: LOSARTAN 50 MG TAB PO SCH (08:37)
[2016-09-23] MEDS: ACETAMINOPHEN 650 MG SUPP PR PRN (08:38)
[2016-09-23] MEDS: FERROUS SULFATE 60 MG/ML 5ML CUP NGT SCH ×2 (08:38→21:45)
[2016-09-23] MEDS: METOPROLOL 50 MG TAB NGT SCH ×2 (08:38→21:46)
[2016-09-23] MEDS: FUROSEMIDE 40 MG INJ IV SCH (08:38)
[2016-09-23] MEDS: AMIODARONE 200 MG TAB PO SCH (08:39)
[2016-09-23] MEDS: PROPOFOL 100 ML IV SCH ×2 (09:30→21:30)
--- NOTE | 2016-09-23 09:54 | CONS ---
Date/Time of Note Date/Time of Note DATE: 09/23/16 TIME: 09:44 Assessment/Plan Assessment/Plan Problems: (1) Cerebral hemorrhage Status: Acute Comment: Exam unchanged c/w yesterday. Repeat CT a bit improved. This is likely attributable to fluid management as Na is now higher. 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 Subdurals smaller and intraparenchymal bleed relatively more prominent. Now off eliquis for several days. Could revisit possibility of clot evacuation, but given degree of mass effect as well as likely overlying vascular malformation, craniotomy would still be very high risk - likely higher risk than benefit. Continue medical management. Need to keep fluid balance dry. - Check Na+ BID; 3%NaCl if drops below 140. - Continue ICU support. Consultation Date/Type/Reason Admit Date/Time September 21, 2016 at 08:29 Initial Consult Date 09/21/16 Type of Consultation: Cardiology Referring Provider: LAINEY AGARWAL 24 HR Interval Summary Free Text/Dictation Acc to RN, patient has been noted to follow commands to transcriptionist using L hand only. Subjective hx not possible: pt non-verbal, pt critical Exam/Review of Systems Vital Signs Vitals Vital Signs Date Time Temp Pulse Resp B/P Pulse Ox O2 Delivery O2 Flow Rate FiO2 09/23/16 08:30 80 09/23/16 07:00 18 125/58 98 Mechanical Ventilator 09/23/16 05:16 30 09/23/16 04:00 98.0 Intake and Output 09/22/16 09/22/16 09/23/16 15:00 23:00 07:00 Intake Total 270 ml 330 ml 800.00 ml Output Total 1000 ml 550 ml 400 ml Balance -730 ml -220 ml 400.00 ml Exam Constitutional: non-verbal Neurological: other (Pupils 4mm reactive bilateral, corneals present bilateral , strong cough reflex; flexion vs withdrawal on R, localizes on L; no eye opening) Results I reviewed new CT: slightly improved with less effacement suprasellar cisterns. Subdural hematomas appear a bit smaller. Also small amount of SAH also noted. Result Diagram: 09/23/16 0455 09/23/16 0455 Results 24 hrs Laboratory Tests Test 09/22/16 11:37 09/22/16 14:44 09/22/16 18:51 09/22/16 22:31 Bedside Glucose 125 134 167 149 Test 09/23/16 02:56 09/23/16 04:55 09/23/16 05:40 Bedside Glucose 158 188 White Blood Count 8.3 Red Blood Count 3.25 L Hemoglobin 9.3 L Hematocrit 29.9 L Mean Corpuscular Volume 92.0 Mean Corpuscular Hemoglobin 28.6 L Mean Corpuscular Hemoglobin Concent 31.1 L Red Cell Distribution Width 17.9 H Platelet Count 105 L Mean Platelet Volume 13.1 H Neutrophils % 84.5 H Lymphocytes % 7.9 L Monocytes % 7.1 Eosinophils % 0.0 Basophils % 0.0 Nucleated Red Blood Cells % 0.0 Neutrophils # 7.0 Lymphocytes # 0.7 L Monocytes # 0.6 Eosinophils # 0.0 Basophils # 0.0 Nucleated Red Blood Cells # 0.0 Sodium Level 148 H Potassium Level 3.4 L Chloride Level 113 H Carbon Dioxide Level 25 Anion Gap 13 Blood Urea Nitrogen 26 H Creatinine 1.02 H Glucose Level 173 Calcium Level 8.0 L Phosphorus Level 3.4 Magnesium Level 1.9 Medications Medications Current Medications Ondansetron HCl (Zofran Inj) 4 mg Q6H PRN IV NAUSEA AND/OR VOMITING; Start at 09:00 Acetaminophen (Tylenol Supp) 650 mg Q4H PRN [place] PAIN LEVEL 1-3 OR FEVER Last administered on 09/23/16 08:38; Admin Dose 650 MG; Start 09/21/16 at 09:00 Morphine Sulfate (morphine) 2 mg Q4H PRN IV PAIN LEVEL 7-10; Start 09/21/16 at 09:00 Pantoprazole (Protonix Iv) 40 mg DAILY@06 IV Last administered on 09/23/16 05: 38; Admin Dose 40 MG; Start 09/22/16 at 06:00 Lorazepam 1 mg 1 mg Q2H PRN IV Seizures; Start 09/21/16 at 09:30 Propofol (Diprivan) 100 ml @ 1.95 mls/hr Q12H IV ; Start 09/21/16 at 09:30 Amiodarone HCl (Cordarone) 200 mg DAILY PO Last administered on 09/23/16 08:39 ; Admin Dose 200 MG; Start 09/22/16 at 09:00 Digoxin (Digoxin) 0.125 mg DAILY PO Last administered on 09/23/16 08:37; Admin Dose 0.125 MG; Start 09/22/16 at 09:00 Losartan Potassium (Cozaar) 50 mg DAILY PO Last administered on 09/23/16 08:37 ; Admin Dose 50 MG; Start 09/22/16 at 09:00 Atorvastatin Calcium (Lipitor) 40 mg DAILY@21 PO Last administered on 20:33; Admin Dose 40 MG; Start 09/21/16 at 21:00 Insulin Aspart (Novolog Insulin Pen) NOVOLOG *MILD* ALGORITHM Q4H SC Last administered on 09/23/16 05:42; Admin Dose 2 UNIT; Start 09/21/16 at 10:00 Furosemide (Lasix) 40 mg DAILY IV Last administered on 09/23/16 08:38; Admin Dose 40 MG; Start 09/21/16 at 10:00 Miscellaneous Information 1 ea NOTE XX ; Start 09/21/16 at 10:00 Glucose (Glutose) 15 gm Q15M PRN PO DECREASED GLUCOSE; Start 09/21/16 at 10:00 Glucose (Glutose) 22.5 gm Q15M PRN PO DECREASED GLUCOSE; Start 09/21/16 at 10: 00 Dextrose (D50w Syringe) 25 ml Q15M PRN IV DECREASED GLUCOSE; Start 09/21/16 at 10:00 Dextrose (D50w Syringe) 50 ml Q15M PRN IV DECREASED GLUCOSE; Start 09/21/16 at 10:00 Glucagon (Glucagen) 1 mg Q15M PRN IM DECREASED GLUCOSE; Start 09/21/16 at 10:00 Glucose 15 gm 15 gm Q15M PRN BUCCAL DECREASED GLUCOSE; Start 09/21/16 at 10:00 Sodium Chloride 500 ml @ 30 mls/hr [id number] IV Last administered on 09/23/16 02:58; Admin Dose 30 MLS/HR; Start 09/21/16 at 17:00 Vancomycin HCl/ Sodium Chloride (Vancocin/NS) 250 ml @ 83.333 mls/ hr Q24H IVPB Last administered on 09/23/16 00:53; Admin Dose 83.333 MLS/HR; Start at 00:00 Metoprolol Tartrate (Lopressor) 50 mg BID NGT Last administered on 09/23/16 08 :38; Admin Dose 50 MG; Start 09/22/16 at 10:00 Ferrous Sulfate (Feosol Liquid Cup) 300 mg BID NGT Last administered on 08:38; Admin Dose 300 MG; Start 09/22/16 at 10:00 MAGALY DUNLAP MD September 23, 2016 09:54
[2016-09-23] MEDS ORDERED: NACL 3% 500 ML IV PRN (10:00)
--- NOTE | 2016-09-23 10:23 | CONS ---
Date/Time of Note Date/Time of Note DATE: 09/23/16 TIME: 10:22 Assessment/Plan Assessment/Plan Chief Complaint/Hosp Course ID PROGRESS NOTE TOTAL ABX DAY #2 => Vanco IV 24H INTERVAL SUMMARY * Orally intubated->Vented, obtunded, afebrile, VSS ->Started on Vanco IV for (+ )BCx * CXR: 09/23/16: IMPRESSION: * Bilateral hazy opacities could represent pulmonary edema and/or multifocal pneumonia, slightly decreased compared with the prior study. * Mild bibasilar atelectasis and possible small left pleural effusion, unchanged. * Cardiomegaly and aortic atherosclerosis. * Endotracheal and nasogastric tubes in place. * MICRO: BLOOD CULTURE Final BCULT GRAM BOTTLE 1 Gram positive cocci in pairs and chains . seen on gram stain of the broth Organism 1 STREP GRP D NOT ENTEROCOCCUS STR GRP D Zone Size RX --------- --- * AMPICILLIN S * CEFAZOLIN S * CEFOTAXIME S * CEFUROXIME S * CIPROFLOXACIN R * CLINDAMYCIN S * ERYTHROMYCIN R * PENICILLIN S * VANCOMYCIN S PHYSICAL EXAMINATION: GENERAL: VSS, obtunded, no fevers HEENT: ETT-> Secure to Vent, NGT NECK: Supple CHEST: Equal chest rise bilaterally, without dyspnea on observation HEART: Irr/Irr, II/ aortic Murmur ABDOMEN: Soft, overweight EXTREMITIES: Warm, left hemiparesis SKIN: Warm, dry ID ASSESSMENT: 76 yo F W/PMHX HTN, HLD, DMII, AFIB-> on Apixaban w/pacemaker, Heart Failure... => BIB EMS 09/21/16 w/facial droop, weakness, left hemiplegia admitted to [facility] ICU with: 1. QUERY Sepsis vs SIRS with hypothermic temperature 94.8,HTN Crisis, tachycardia, and acute ICH on presentation to ED * Tmax 100.8 in ED, Intubated in ED 09/21/16 * BCx 09/21/16 (+)Group D Strep (not enterococcus) => Etiology Unclear? DDx = r/ o SBE vs ?Biliary ? * UA/Urine Cx (-) 2. Intracranial bleeding including intraparenchymal hematoma and bilateral subdural hematomas with midline shift. * Neurosurgery on the case-> ICP lowering measures including hyperventilation & SZS precautions. No surgical interventions as of now. 3. Accelerated hypertension-> Cardiology & Neuro on the case 4. Atrial fibrillation rate controlled, hx of SSS? Pacemaker in situ vs ICD?- > On amiodarone and digoxin. 5. Acute Heart Failure exacerbation w/pulmonary edema CXR on admission => Mixed Systolic + Diastolic w/EF ~30% with stage III and stage IV diastolic dysfunction. 6. Aspiration Pneumonitis suspected in setting acute ICH w/facial droop 7. Acute respiratory failure -> Orally intubated in ED 09/21/16 8. Hypothyroidism on Synthroid. 9. Hyperlipidemia, on statin 10. Type 2 diabetes mellitus. 11. Normocytic anemia w/history of iron deficiency 12. Thrombocytopenia (-)MRSA Nares Screen INVASIVES: *PIV, ETT, OGT, FC ABX ALLERGIES: KNDA CURRENT ABX: DAY #2 => Vanco IV ID RECOMMENDATIONS: 1. Repeat BCx x2, sputum for C&S 2. Consider 2D ECHO r/o SBE, aortic murmur present on auscultation 3. Consider liver BART r/o biliary etiology 4. Continue Vanco IV for now - await further recs LITERATURE REVIEW [email or web address] Streptococcus Group D Infections Clinical Presentation Updated: Feb 23, 2015 * Author: Supa Mora MD; Chief Moving Picture Producer: George Tafoya MD more... History Meningitis, peritonitis, septic arthritis, urinary tract infections, and sepsis due to group D streptococci have clinical features referable to the site of infection. When due to group D streptococcal infection, the clinical features do not differ from other bacterial causes of these infections. * Group D streptococcal endocarditis * Subacute endocarditis with persistent fever lasting days or weeks * Associated with nonspecific symptoms of systemic lupus erythematosus, including anorexia, weight loss, fatigue, night sweats, and weakness * Group D streptococcal bacteremia * Fever * Only possible to distinguish from endocarditis with patient history and echocardiography Treatment "Most S bovis isolates are susceptible to penicillin (JAIR = 0.1 mg/L) and should be treated with intravenous penicillin G or ceftriaxone for 4 weeks. An alternative for only uncomplicated cases of naknek-valve endocarditis is a 2- week course of therapy with a combination of penicillin G or ceftriaxone and gentamicin. For moderately susceptible isolates (JAIR >0.1 mg/L, JAIR = 0.5 mg/L) , penicillin or ceftriaxone and gentamicin should be administered for 4 weeks and 2 weeks, respectively. [13] " ```````````````````````````````````````````````````````````````````````````````` ```````````````````````````````````````````````````````````````````````````````` ```````````````````````````````````````````````````````````````````````````````` `````````````````` Problems: Consultation Date/Type/Reason Admit Date/Time September 21, 2016 at 08:29 Initial Consult Date 09/21/16 Type of Consultation: ID Referring Provider: LAINEY AGARWAL Exam/Review of Systems Vital Signs Vitals Vital Signs Date Time Temp Pulse Resp B/P Pulse Ox O2 Delivery O2 Flow Rate FiO2 09/23/16 08:30 80 09/23/16 07:00 18 125/58 98 Mechanical Ventilator 09/23/16 05:16 30 09/23/16 04:00 98.0 Intake and Output 09/22/16 09/22/16 09/23/16 15:00 23:00 07:00 Intake Total 270 ml 330 ml 800.00 ml Output Total 1000 ml 550 ml 400 ml Balance -730 ml -220 ml 400.00 ml Results Result Diagram: 09/23/16 0455 09/23/16 0455 Results 24 hrs Laboratory Tests Test 09/22/16 11:37 09/22/16 14:44 09/22/16 18:51 09/22/16 22:31 Bedside Glucose 125 134 167 149 Test 09/23/16 02:56 09/23/16 04:55 09/23/16 05:40 Bedside Glucose 158 188 White Blood Count 8.3 Red Blood Count 3.25 L Hemoglobin 9.3 L Hematocrit 29.9 L Mean Corpuscular Volume 92.0 Mean Corpuscular Hemoglobin 28.6 L Mean Corpuscular Hemoglobin Concent 31.1 L Red Cell Distribution Width 17.9 H Platelet Count 105 L Mean Platelet Volume 13.1 H Neutrophils % 84.5 H Lymphocytes % 7.9 L Monocytes % 7.1 Eosinophils % 0.0 Basophils % 0.0 Nucleated Red Blood Cells % 0.0 Neutrophils # 7.0 Lymphocytes # 0.7 L Monocytes # 0.6 Eosinophils # 0.0 Basophils # 0.0 Nucleated Red Blood Cells # 0.0 Sodium Level 148 H Potassium Level 3.4 L Chloride Level 113 H Carbon Dioxide Level 25 Anion Gap 13 Blood Urea Nitrogen 26 H Creatinine 1.02 H Glucose Level 173 Calcium Level 8.0 L Phosphorus Level 3.4 Magnesium Level 1.9 Medications Medications Current Medications Ondansetron HCl (Zofran Inj) 4 mg Q6H PRN IV NAUSEA AND/OR VOMITING; Start at 09:00 Acetaminophen (Tylenol Supp) 650 mg Q4H PRN [place] PAIN LEVEL 1-3 OR FEVER Last administered on 09/23/16t 08:38; Admin Dose 650 MG; Start 09/21/16 at 09:00 Morphine Sulfate (morphine) 2 mg Q4H PRN IV PAIN LEVEL 7-10; Start 09/21/16 at 09:00 Pantoprazole (Protonix Iv) 40 mg DAILY@06 IV Last administered on 09/23/16 05: 38; Admin Dose 40 MG; Start 09/22/16 at 06:00 Lorazepam 1 mg 1 mg Q2H PRN IV Seizures; Start 09/21/16 at 09:30 Propofol (Diprivan) 100 ml @ 1.95 mls/hr Q12H IV ; Start 09/21/16 at 09:30 Amiodarone HCl (Cordarone) 200 mg DAILY PO Last administered on 09/23/16 08:39 ; Admin Dose 200 MG; Start 09/22/16 at 09:00 Digoxin (Digoxin) 0.125 mg DAILY PO Last administered on 09/23/16 08:37; Admin Dose 0.125 MG; Start 09/22/16 at 09:00 Losartan Potassium (Cozaar) 50 mg DAILY PO Last administered on 09/23/16 08:37 ; Admin Dose 50 MG; Start 09/22/16 at 09:00 Atorvastatin Calcium (Lipitor) 40 mg DAILY@21 PO Last administered on 20:33; Admin Dose 40 MG; Start 09/21/16 at 21:00 Insulin Aspart (Novolog Insulin Pen) NOVOLOG *MILD* ALGORITHM Q4H SC Last administered on 09/23/16 05:42; Admin Dose 2 UNIT; Start 09/21/16 at 10:00 Furosemide (Lasix) 40 mg DAILY IV Last administered on 09/23/16 08:38; Admin Dose 40 MG; Start 09/21/16 at 10:00 Miscellaneous Information 1 ea NOTE XX ; Start 09/21/16 at 10:00 Glucose (Glutose) 15 gm Q15M PRN PO DECREASED GLUCOSE; Start 09/21/16 at 10:00 Glucose (Glutose) 22.5 gm Q15M PRN PO DECREASED GLUCOSE; Start 09/21/16 at 10: 00 Dextrose (D50w Syringe) 25 ml Q15M PRN IV DECREASED GLUCOSE; Start 09/21/16 at 10:00 Dextrose (D50w Syringe) 50 ml Q15M PRN IV DECREASED GLUCOSE; Start 09/21/16 at 10:00 Glucagon (Glucagen) 1 mg Q15M PRN IM DECREASED GLUCOSE; Start 09/21/16 at 10:00 Glucose 15 gm 15 gm Q15M PRN BUCCAL DECREASED GLUCOSE; Start 09/21/16 at 10:00 Vancomycin HCl/ Sodium Chloride (Vancocin/NS) 250 ml @ 83.333 mls/ hr Q24H IVPB Last administered on 09/23/16 00:53; Admin Dose 83.333 MLS/HR; Start at 00:00 Metoprolol Tartrate (Lopressor) 50 mg BID NGT Last administered on 09/23/16 08 :38; Admin Dose 50 MG; Start 09/22/16 at 10:00 Ferrous Sulfate 300 mg 300 mg BID NGT Last administered on 09/23/16 08:38; Admin Dose 300 MG; Start 09/22/16 at 10:00 Sodium Chloride 500 ml @ 20 mls/hr Q24H PRN IV SODIUM <140; Start 09/23/16 at 10:00 Sodium Chloride (NS) 1,000 ml @ 20 mls/hr Q24H IV ; Start 09/23/16 at 10:00 DANTE THOMPSON NP September 23, 2016 10:23 DANTE THOMPSON NP September 23, 2016 10:23
[2016-09-23] MEDS: SOD CHLORIDE 0.9% 1,000 ML IV SCH (10:39)
--- NOTE | 2016-09-23 11:45 | CONS ---
Date/Time of Note Date/Time of Note DATE: 09/23/16 TIME: 11:42 Assessment/Plan Assessment/Plan Additional Assessment/Plan Ventilator setting; AC of 18, tidal volume 450, PEEP of 5, 30% FiO2. Assessment recommendations; 1. Patient admitted for intracranial bleed with subdural hemorrhage with very poor mental status. Patient deemed too high for any surgical intervention. 2. Respiratory failure. Continue current supportive care. Prognosis is poor. I did have a very detailed discussion the patient's family at bedside apprised them of the patient 's condition. The patient's family wants to wait a couple of more days before deciding about possible further intervention. Consultation Date/Type/Reason Admit Date/Time September 21, 2016 at 08:29 Initial Consult Date 09/21/16 Type of Consultation: Pulmonary/critical care Referring Provider: LAINEY AGARWAL 24 HR Interval Summary Free Text/Dictation Patient condition remains critical. Remains unresponsive. Has not required any sedation. General exam; elderly woman, orally intubated, unresponsive. Currently in no distress. Exam/Review of Systems Vital Signs Vitals Vital Signs Date Time Temp Pulse Resp B/P Pulse Ox O2 Delivery O2 Flow Rate FiO2 09/23/16 08:30 80 09/23/16 07:00 18 125/58 98 Mechanical Ventilator 09/23/16 05:16 30 09/23/16 04:00 98.0 Intake and Output 09/22/16 09/22/16 09/23/16 15:00 23:00 07:00 Intake Total 270 ml 330 ml 800.00 ml Output Total 1000 ml 550 ml 400 ml Balance -730 ml -220 ml 400.00 ml Exam HEENT exam is; supple neck, no JVD. No lymphadenopathy. Midline trachea. No thyromegaly. Orally intubated. She is edentulous. Has bilateral intraocular lens implants. Significant bilateral temporal muscle wasting is noted. Chest examination; diminished but clear vessel. S1-S2 audible, no murmurs. Regular rhythm. Abdomen examination; soft, nondistended. No organomegaly. Bowel sounds audible. Extremity examination; no peripheral edema. DESIGN ENG examination : patient remains unresponsive. Results Result Diagram: 09/23/16 0455 09/23/16 0455 Results 24 hrs Laboratory Tests Test 09/22/16 14:44 09/22/16 18:51 09/22/16 22:31 09/23/16 02:56 Bedside Glucose 134 167 149 158 Test 09/23/16 04:55 09/23/16 05:40 09/23/16 11:12 White Blood Count 8.3 Red Blood Count 3.25 L Hemoglobin 9.3 L Hematocrit 29.9 L Mean Corpuscular Volume 92.0 Mean Corpuscular Hemoglobin 28.6 L Mean Corpuscular Hemoglobin Concent 31.1 L Red Cell Distribution Width 17.9 H Platelet Count 105 L Mean Platelet Volume 13.1 H Neutrophils % 84.5 H Lymphocytes % 7.9 L Monocytes % 7.1 Eosinophils % 0.0 Basophils % 0.0 Nucleated Red Blood Cells % 0.0 Neutrophils # 7.0 Lymphocytes # 0.7 L Monocytes # 0.6 Eosinophils # 0.0 Basophils # 0.0 Nucleated Red Blood Cells # 0.0 Sodium Level 148 H Potassium Level 3.4 L Chloride Level 113 H Carbon Dioxide Level 25 Anion Gap 13 Blood Urea Nitrogen 26 H Creatinine 1.02 H Glucose Level 173 Calcium Level 8.0 L Phosphorus Level 3.4 Magnesium Level 1.9 Bedside Glucose 188 231 H Medications Medications Current Medications Ondansetron HCl (Zofran Inj) 4 mg Q6H PRN IV NAUSEA AND/OR VOMITING; Start at 09:00 Acetaminophen (Tylenol Supp) 650 mg Q4H PRN [place] PAIN LEVEL 1-3 OR FEVER Last administered on 09/23/16 08:38; Admin Dose 650 MG; Start 09/21/16 at 09:00 Morphine Sulfate (morphine) 2 mg Q4H PRN IV PAIN LEVEL 7-10; Start 09/21/16 at 09:00 Pantoprazole (Protonix Iv) 40 mg DAILY@06 IV Last administered on 09/23/16 05: 38; Admin Dose 40 MG; Start 09/22/16 at 06:00 Lorazepam 1 mg 1 mg Q2H PRN IV Seizures; Start 09/21/16 at 09:30 Propofol (Diprivan) 100 ml @ 1.95 mls/hr Q12H IV ; Start 09/21/16 at 09:30 Amiodarone HCl (Cordarone) 200 mg DAILY PO Last administered on 09/23/16 08:39 ; Admin Dose 200 MG; Start 09/22/16 at 09:00 Digoxin (Digoxin) 0.125 mg DAILY PO Last administered on 09/23/16 08:37; Admin Dose 0.125 MG; Start 09/22/16 at 09:00 Losartan Potassium (Cozaar) 50 mg DAILY PO Last administered on 09/23/16 08:37 ; Admin Dose 50 MG; Start 09/22/16 at 09:00 Atorvastatin Calcium (Lipitor) 40 mg DAILY@21 PO Last administered on 20:33; Admin Dose 40 MG; Start 09/21/16 at 21:00 Insulin Aspart (Novolog Insulin Pen) NOVOLOG *MILD* ALGORITHM Q4H SC Last administered on 09/23/16 11:16; Admin Dose 3 UNIT; Start 09/21/16 at 10:00 Furosemide (Lasix) 40 mg DAILY IV Last administered on 09/23/16 08:38; Admin Dose 40 MG; Start 09/21/16 at 10:00 Miscellaneous Information 1 ea NOTE XX ; Start 09/21/16 at 10:00 Glucose (Glutose) 15 gm Q15M PRN PO DECREASED GLUCOSE; Start 09/21/16 at 10:00 Glucose (Glutose) 22.5 gm Q15M PRN PO DECREASED GLUCOSE; Start 09/21/16 at 10: 00 Dextrose (D50w Syringe) 25 ml Q15M PRN IV DECREASED GLUCOSE; Start 09/21/16 at 10:00 Dextrose (D50w Syringe) 50 ml Q15M PRN IV DECREASED GLUCOSE; Start 09/21/16 at 10:00 Glucagon (Glucagen) 1 mg Q15M PRN IM DECREASED GLUCOSE; Start 09/21/16 at 10:00 Glucose 15 gm 15 gm Q15M PRN BUCCAL DECREASED GLUCOSE; Start 09/21/16 at 10:00 Vancomycin HCl/ Sodium Chloride (Vancocin/NS) 250 ml @ 83.333 mls/ hr Q24H IVPB Last administered on 09/23/16 00:53; Admin Dose 83.333 MLS/HR; Start at 00:00 Metoprolol Tartrate (Lopressor) 50 mg BID NGT Last administered on 09/23/16 08 :38; Admin Dose 50 MG; Start 09/22/16 at 10:00 Ferrous Sulfate 300 mg 300 mg BID NGT Last administered on 09/23/16 08:38; Admin Dose 300 MG; Start 09/22/16 at 10:00 Sodium Chloride 500 ml @ 20 mls/hr Q24H PRN IV SODIUM <140; Start 09/23/16 at 10:00 Sodium Chloride (NS) 1,000 ml @ 20 mls/hr Q24H IV Last administered on t 10:39; Admin Dose 20 MLS/HR; Start 09/23/16 at 10:00 JAY LEONARDO September 23, 2016 11:45
--- NOTE | 2016-09-23 12:03 | PN ---
Date/Time of Note Date/Time of Note DATE: 09/23/16 TIME: 11:55 Assessment/Plan VTE Prophylaxis VTE Prophylaxis Intervention: SCD's Lines/Catheters IV Catheter Type (from Nrs): Peripheral IV Urinary Cath still in place: Yes Reason Cath still needed: other (indicate) (monitor I&O) Assessment/Plan Chief Complaint/Hosp Course Assessment and plan 1. Intracranial bleeding including intraparenchymal hematoma and bilateral subdural hematomas with midline shift. Neurosurgery following. Continue on Decadron medication. On seizure precautions. Was noted to be previously on Eliquis for atrial fibrillation. No surgical intervention for now. Follow-up with neurosurgery recommendations. Continue neuro checks. 2. Accelerated hypertension. On antihypertensives. Adjust as needed 3. Atrial fibrillation. Etiology swelling. Rate controlled at this time. On amiodarone. On digoxin as well. Off Eliquis due to recent intracranial bleed 4. Cardiopathy with ejection fraction of 30% with history of stage IV diastolic dysfunction. To the optimization of beta yessy and ARB. 5. Hypothyroidism. On Synthroid medication. 6. Dyslipidemia. Continue statin medication 7. Type 2 diabetes. On insulin regimen. Will adjust as needed. 8. Iron deficiency anemia. Continue iron supplement 9. Sepsis with underlying gram-positive bacteremia. On vancomycin. ID consult is following. Continue the recommendations. Noted with strep group D in blood. DVT prophylaxis: SCD For prophylaxis: PPI Disposition and plan: Continue to monitor neuro status. Palliative care physician following considering patient's prognosis.. Will follow up with family for goals of care Discussed plan of care with Dr. Shrestha Problems: Subjective 24 Hr Interval Summary Free Text/Dictation Remains intubated and sedated. Noted to only have left upper and lower extremity movement. No purposeful response. Constitutional: other Exam/Review of Systems Vital Signs Vitals Vital Signs Date Time Temp Pulse Resp B/P Pulse Ox O2 Delivery O2 Flow Rate FiO2 09/23/16 08:30 80 09/23/16 07:00 18 125/58 98 Mechanical Ventilator 09/23/16 05:16 30 09/23/16 04:00 98.0 Intake and Output 09/22/16 09/22/16 09/23/16 15:00 23:00 07:00 Intake Total 270 ml 330 ml 800.00 ml Output Total 1000 ml 550 ml 400 ml Balance -730 ml -220 ml 400.00 ml Exam Constitutional: other (Intubated and sedated.) Neck: No jvd Respiratory: clear to auscultation Cardiovascular: other (Minimal systolic murmur auscultated. Pacemaker placed) Gastrointestinal: other (Bowel sounds active), soft Neurological: No nl mental status, No nl speech Results Result Diagram: 09/23/16 0455 09/23/16 0455 Results 24 hrs Laboratory Tests Test 09/22/16 14:44 09/22/16 18:51 09/22/16 22:31 09/23/16 02:56 Bedside Glucose 134 167 149 158 Test 09/23/16 04:55 09/23/16 05:40 09/23/16 11:12 White Blood Count 8.3 Red Blood Count 3.25 L Hemoglobin 9.3 L Hematocrit 29.9 L Mean Corpuscular Volume 92.0 Mean Corpuscular Hemoglobin 28.6 L Mean Corpuscular Hemoglobin Concent 31.1 L Red Cell Distribution Width 17.9 H Platelet Count 105 L Mean Platelet Volume 13.1 H Neutrophils % 84.5 H Lymphocytes % 7.9 L Monocytes % 7.1 Eosinophils % 0.0 Basophils % 0.0 Nucleated Red Blood Cells % 0.0 Neutrophils # 7.0 Lymphocytes # 0.7 L Monocytes # 0.6 Eosinophils # 0.0 Basophils # 0.0 Nucleated Red Blood Cells # 0.0 Sodium Level 148 H Potassium Level 3.4 L Chloride Level 113 H Carbon Dioxide Level 25 Anion Gap 13 Blood Urea Nitrogen 26 H Creatinine 1.02 H Glucose Level 173 Calcium Level 8.0 L Phosphorus Level 3.4 Magnesium Level 1.9 Bedside Glucose 188 231 H Medications Medications Current Medications Ondansetron HCl (Zofran Inj) 4 mg Q6H PRN IV NAUSEA AND/OR VOMITING; Start at 09:00 Acetaminophen (Tylenol Supp) 650 mg Q4H PRN [place] PAIN LEVEL 1-3 OR FEVER Last administered on 09/23/16 08:38; Admin Dose 650 MG; Start 09/21/16 at 09:00 Morphine Sulfate (morphine) 2 mg Q4H PRN IV PAIN LEVEL 7-10; Start 09/21/16 at 09:00 Pantoprazole (Protonix Iv) 40 mg DAILY@06 IV Last administered on 09/23/16 05: 38; Admin Dose 40 MG; Start 09/22/16 at 06:00 Lorazepam 1 mg 1 mg Q2H PRN IV Seizures; Start 09/21/16 at 09:30 Propofol (Diprivan) 100 ml @ 1.95 mls/hr Q12H IV ; Start 09/21/16 at 09:30 Amiodarone HCl (Cordarone) 200 mg DAILY PO Last administered on 09/23/16 08:39 ; Admin Dose 200 MG; Start 09/22/16 at 09:00 Digoxin (Digoxin) 0.125 mg DAILY PO Last administered on 09/23/16 08:37; Admin Dose 0.125 MG; Start 09/22/16 at 09:00 Losartan Potassium (Cozaar) 50 mg DAILY PO Last administered on 09/23/16 08:37 ; Admin Dose 50 MG; Start 09/22/16 at 09:00 Atorvastatin Calcium (Lipitor) 40 mg DAILY@21 PO Last administered on 20:33; Admin Dose 40 MG; Start 09/21/16 at 21:00 Insulin Aspart (Novolog Insulin Pen) NOVOLOG *MILD* ALGORITHM Q4H SC Last administered on 09/23/16 11:16; Admin Dose 3 UNIT; Start 09/21/16 at 10:00 Furosemide (Lasix) 40 mg DAILY IV Last administered on 09/23/16 08:38; Admin Dose 40 MG; Start 09/21/16 at 10:00 Miscellaneous Information 1 ea NOTE XX ; Start 09/21/16 at 10:00 Glucose (Glutose) 15 gm Q15M PRN PO DECREASED GLUCOSE; Start 09/21/16 at 10:00 Glucose (Glutose) 22.5 gm Q15M PRN PO DECREASED GLUCOSE; Start 09/21/16 at 10: 00 Dextrose (D50w Syringe) 25 ml Q15M PRN IV DECREASED GLUCOSE; Start 09/21/16 at 10:00 Dextrose (D50w Syringe) 50 ml Q15M PRN IV DECREASED GLUCOSE; Start 09/21/16 at 10:00 Glucagon (Glucagen) 1 mg Q15M PRN IM DECREASED GLUCOSE; Start 09/21/16 at 10:00 Glucose 15 gm 15 gm Q15M PRN BUCCAL DECREASED GLUCOSE; Start 09/21/16 at 10:00 Vancomycin HCl/ Sodium Chloride (Vancocin/NS) 250 ml @ 83.333 mls/ hr Q24H IVPB Last administered on 09/23/16 00:53; Admin Dose 83.333 MLS/HR; Start at 00:00 Metoprolol Tartrate (Lopressor) 50 mg BID NGT Last administered on 09/23/16 08 :38; Admin Dose 50 MG; Start 09/22/16 at 10:00 Ferrous Sulfate 300 mg 300 mg BID NGT Last administered on 09/23/16 08:38; Admin Dose 300 MG; Start 09/22/16 at 10:00 Sodium Chloride 500 ml @ 20 mls/hr Q24H PRN IV SODIUM <140; Start 09/23/16 at 10:00 Sodium Chloride (NS) 1,000 ml @ 20 mls/hr Q24H IV Last administered on 10:39; Admin Dose 20 MLS/HR; Start 09/23/16 at 10:00 JÚNIOR KELLEY September 23, 2016 12:03
--- NOTE | 2016-09-23 14:36 | CONS ---
Date/Time of Note Date/Time of Note DATE: 09/23/16 TIME: 14:31 Assessment/Plan Assessment/Plan Additional Assessment/Plan Congestive heart failure exacerbation Cardiomyopathy with ejection fraction 25%, s/p AICD Paroxysmal atrial fibrillation Subdural hematomas with midline shift Encephalopathy. Hypertension. Anemia. Thrombocytopenia. Hemodynamically stable Continue Ventilatory support Avoid Volume Overload Continue diuresis with Lasix Continue Amiodarone Continue Metoprolol Continue Losartan Continue Antibiotics Continue Levothyroxine Consultation Date/Type/Reason Admit Date/Time September 21, 2016 at 08:29 Constitutional: other Psychological: no complaints Past Medical History Medical History: congestive heart failure, diabetes, high cholesterol, hypertension, hypothyroid, other (pulmonary hypertension, cardiomyopathy, sick sinus syndrome, aortic stenosis, anemia) Past Surgical History Past Surgical Hx: other (pacemaker placement) Social History Alcohol Use: none Smoking Status: Unknown if ever smoked Drug Use: none Exam/Review of Systems Vital Signs Vitals Vital Signs Date Time Temp Pulse Resp B/P Pulse Ox O2 Delivery O2 Flow Rate FiO2 09/23/16 12:42 80 09/23/16 07:00 18 125/58 98 Mechanical Ventilator 09/23/16 05:16 30 09/23/16 04:00 98.0 Intake and Output 09/22/16 09/22/16 09/23/16 15:00 23:00 07:00 Intake Total 270 ml 330 ml 800.00 ml Output Total 1000 ml 550 ml 400 ml Balance -730 ml -220 ml 400.00 ml Exam Intubated Neck No JVD CVS RRR, No m/r/g Chest Mechanical Breath sounds heard bilaterally Ext No pedal edema Results Result Diagram: 09/23/16 0455 09/23/16 0455 Results 24 hrs Laboratory Tests Test 09/22/16 14:44 09/22/16 18:51 09/22/16 22:31 09/23/16 02:56 Bedside Glucose 134 167 149 158 Test 09/23/16 04:55 09/23/16 05:40 09/23/16 11:12 White Blood Count 8.3 Red Blood Count 3.25 L Hemoglobin 9.3 L Hematocrit 29.9 L Mean Corpuscular Volume 92.0 Mean Corpuscular Hemoglobin 28.6 L Mean Corpuscular Hemoglobin Concent 31.1 L Red Cell Distribution Width 17.9 H Platelet Count 105 L Mean Platelet Volume 13.1 H Neutrophils % 84.5 H Lymphocytes % 7.9 L Monocytes % 7.1 Eosinophils % 0.0 Basophils % 0.0 Nucleated Red Blood Cells % 0.0 Neutrophils # 7.0 Lymphocytes # 0.7 L Monocytes # 0.6 Eosinophils # 0.0 Basophils # 0.0 Nucleated Red Blood Cells # 0.0 Sodium Level 148 H Potassium Level 3.4 L Chloride Level 113 H Carbon Dioxide Level 25 Anion Gap 13 Blood Urea Nitrogen 26 H Creatinine 1.02 H Glucose Level 173 Calcium Level 8.0 L Phosphorus Level 3.4 Magnesium Level 1.9 Bedside Glucose 188 231 H Medications Medications Current Medications Ondansetron HCl (Zofran Inj) 4 mg Q6H PRN IV NAUSEA AND/OR VOMITING; Start at 09:00 Acetaminophen (Tylenol Supp) 650 mg Q4H PRN [place] PAIN LEVEL 1-3 OR FEVER Last administered on 09/23/16 08:38; Admin Dose 650 MG; Start 09/21/16 at 09:00 Morphine Sulfate (morphine) 2 mg Q4H PRN IV PAIN LEVEL 7-10; Start 09/21/16 at 09:00 Pantoprazole (Protonix Iv) 40 mg DAILY@06 IV Last administered on 09/23/16 05: 38; Admin Dose 40 MG; Start 09/22/16 at 06:00 Lorazepam 1 mg 1 mg Q2H PRN IV Seizures; Start 09/21/16 at 09:30 Propofol (Diprivan) 100 ml @ 1.95 mls/hr Q12H IV ; Start 09/21/16 at 09:30 Amiodarone HCl (Cordarone) 200 mg DAILY PO Last administered on 09/23/16 08:39 ; Admin Dose 200 MG; Start 09/22/16 at 09:00 Digoxin (Digoxin) 0.125 mg DAILY PO Last administered on 09/23/16 08:37; Admin Dose 0.125 MG; Start 09/22/16 at 09:00 Losartan Potassium (Cozaar) 50 mg DAILY PO Last administered on 09/23/16 08:37 ; Admin Dose 50 MG; Start 09/22/16 at 09:00 Atorvastatin Calcium (Lipitor) 40 mg DAILY@21 PO Last administered on 20:33; Admin Dose 40 MG; Start 09/21/16 at 21:00 Insulin Aspart (Novolog Insulin Pen) NOVOLOG *MILD* ALGORITHM Q4H SC Last administered on 09/23/16 11:16; Admin Dose 3 UNIT; Start 09/21/16 at 10:00 Furosemide (Lasix) 40 mg DAILY IV Last administered on 09/23/16 08:38; Admin Dose 40 MG; Start 09/21/16 at 10:00 Miscellaneous Information 1 ea NOTE XX ; Start 09/21/16 at 10:00 Glucose (Glutose) 15 gm Q15M PRN PO DECREASED GLUCOSE; Start 09/21/16 at 10:00 Glucose (Glutose) 22.5 gm Q15M PRN PO DECREASED GLUCOSE; Start 09/21/16 at 10: 00 Dextrose (D50w Syringe) 25 ml Q15M PRN IV DECREASED GLUCOSE; Start 09/21/16 at 10:00 Dextrose (D50w Syringe) 50 ml Q15M PRN IV DECREASED GLUCOSE; Start 09/21/16 at 10:00 Glucagon (Glucagen) 1 mg Q15M PRN IM DECREASED GLUCOSE; Start 09/21/16 at 10:00 Glucose 15 gm 15 gm Q15M PRN BUCCAL DECREASED GLUCOSE; Start 09/21/16 at 10:00 Vancomycin HCl/ Sodium Chloride (Vancocin/NS) 250 ml @ 83.333 mls/ hr Q24H IVPB Last administered on 09/23/16 00:53; Admin Dose 83.333 MLS/HR; Start at 00:00 Metoprolol Tartrate (Lopressor) 50 mg BID NGT Last administered on 09/23/16 08 :38; Admin Dose 50 MG; Start 09/22/16 at 10:00 Ferrous Sulfate 300 mg 300 mg BID NGT Last administered on 09/23/16 08:38; Admin Dose 300 MG; Start 09/22/16 at 10:00 Sodium Chloride 500 ml @ 20 mls/hr Q24H PRN IV SODIUM <140; Start 09/23/16 at 10:00 Sodium Chloride (NS) 1,000 ml @ 20 mls/hr Q24H IV Last administered on 10:39; Admin Dose 20 MLS/HR; Start 09/23/16 at 10:00 STEPHEN PAULA M.D. September 23, 2016 14:36
[2016-09-23] MEDS: ATORVASTATIN 40 MG TAB PO SCH (21:44)
[2016-09-24] VITALS (35 sets, daily range): BP systolic 89–144; BP diastolic 46–79; PULSE 79–86; RESP 18–29
[2016-09-24] MEDS: VANCOMYCIN 1.25 GM in SOD CHLORIDE 0.9% 250 ML IVPB SCH (00:13)
[2016-09-24] MEDS: INSULIN ASPART [NOVOLOG] 3 ML PEN SC SCH ×6 (02:22→21:32)
--- NOTE | 2016-09-24 04:29 | CONS ---
DATE OF ADMISSION: 09/21/2016 DATE OF CONSULTATION: 09/22/2016 INFECTIOUS DISEASE CONSULTATION REQUESTING PHYSICIAN: Kelly Shrestha MD I am seeing this patient for Dr. Tho Alford. HISTORY OF PRESENT ILLNESS: The patient is a 76-year-old white female from [place] that was admitted with a chief complaint from home of altered mental status and headache. The patient was on apixaban for atrial fibrillation. When she arrived in the emergency room, her temperature was 94.8, her pul se 84, respirations 6, blood pressure 187/89. O2 saturation was 100%. The patient became apneic an d unresponsive and had to be intubated and then transferred to the intensive care unit. Her white c ount on admission was [phone]. The patient had 2 blood cultures which grew group D nonenterococcal str eptococcus. This was resistant to erythromycin and fluoroquinolones and sensitive to all the other antibiotics tested. The patient had a CT of the brain on 09/21/2016 which revealed a large frontal lobe parenchymal hemorrhage, 6.1 x 3.6 mm. There was a 5 mm shift of the brain to the left. There was also noted to be a pacer on the left chest. A repeat CT scan raised the question of arterioveno us fistula because of hematoma straddling the cerebral convexity measuring 10 x 9 mm. The patient's chest x-ray revealed stable congestive heart failure with enlarged heart and a calcified aorta. Th e patient was treated with appropriate hydration and blood pressure control and other means to ensur e there was not continued hemorrhage or damage. The chest x-ray on admission revealed bilateral haz y opacities. PHYSICAL EXAMINATION: GENERAL: Reveals a rather tall white female lying in bed with endotracheal tube in place. She is s edated and poorly responsive. There appears to be no acute distress. NECK: The patient has no jugular venous distention. She is difficult to arouse because she has bee n sedated. CHEST: Clear to auscultation. HEART: Regular, and by the monitor, the pacemaker is engaged and pacing faithfully. ABDOMEN: Soft, no palpable organs or masses. Bowel sounds are present. EXTREMITIES: There is no peripheral edema. There was a Babinski reflex on the right. There was no Babinski on the left. There is no Badillo on the right, and there was no palmomental on the right. The left hand could not be tested because of a rather intricate mitten placed over the patient's h and. INITIAL IMPRESSION: 1. Subarachnoid hemorrhage. 2. Group D nonenterococcal strep bacteremia. 3. Apixaban anticoagulation. 4. Atrial fibrillation. 5. Implanted pacemaker. 6. Hypertension. 7. Congestive heart failure. 8. Hypothyroidism. RECOMMENDATIONS: The patient is currently on vancomycin which should cover the bacteremia. I have been unable to order any ampicillin IV from the computer for whatever reason it happens to have. Ne vertheless, I recommend continuing the vancomycin. Continue with neurosurgical followup, and hopefu lly the patient will not need any surgery. Dictated By: Renata WILKERSON/JARRELL Conf#: [id number] DID#: [id number]
[2016-09-24] MEDS: PANTOPRAZOLE 40 MG INJ IV SCH (05:40)
[2016-09-24] MEDS: LEVOTHYROXINE 100 MCG TAB PO SCH (07:00)
[2016-09-24] MEDS: FERROUS SULFATE 60 MG/ML 5ML CUP NGT SCH ×2 (08:30→21:24)
[2016-09-24] MEDS: METOPROLOL 50 MG TAB NGT SCH ×2 (08:31→21:25)
[2016-09-24] MEDS: AMIODARONE 200 MG TAB PO SCH (08:31)
[2016-09-24] MEDS: LOSARTAN 50 MG TAB PO SCH (08:31)
[2016-09-24] MEDS: DIGOXIN 0.125 MG TAB PO SCH (08:31)
[2016-09-24] MEDS: PROPOFOL 100 ML IV SCH ×2 (08:32→21:09)
[2016-09-24] MEDS: FUROSEMIDE 40 MG INJ IV SCH (08:32)
--- NOTE | 2016-09-24 09:18 | CONS ---
Date/Time of Note Date/Time of Note DATE: 09/24/16 TIME: 09:16 Assessment/Plan Assessment/Plan Additional Assessment/Plan Congestive heart failure exacerbation Cardiomyopathy with ejection fraction 25%, s/p Pacer/AICD Paroxysmal atrial fibrillation Subdural hematomas with midline shift Encephalopathy. Hypertension. Anemia. Thrombocytopenia. Hemodynamically stable V paced at 80 bpm Continue Ventilatory support Avoid Volume Overload Continue diuresis with Lasix Continue Amiodarone Continue Metoprolol Continue Losartan Continue Antibiotics Continue Levothyroxine Consultation Date/Type/Reason Admit Date/Time September 21, 2016 at 08:29 Initial Consult Date 09/21/16 Type of Consultation: Pulmonary/critical care Referring Provider: LAINEY AGARWAL Exam/Review of Systems Vital Signs Vitals Vital Signs Date Time Temp Pulse Resp B/P Pulse Ox O2 Delivery O2 Flow Rate FiO2 09/24/16 08:00 80 09/24/16 06:00 20 144/79 96 Mechanical Ventilator 09/24/16 05:33 30 09/24/16 04:00 99.2 Intake and Output 09/23/16 09/23/16 09/24/16 15:00 23:00 07:00 Intake Total 500 ml 560 ml 800 ml Output Total 1000 ml 480 ml 230 ml Balance -500 ml 80 ml 570 ml Exam Intubated Neck No JVD CVS RRR, No m/r/g Chest Mechanical Breath sounds heard bilaterally Abd: Soft, BS sounds heard Ext No pedal edema Results Result Diagram: 09/23/16 0455 09/23/16 2154 Results 24 hrs Laboratory Tests Test 09/23/16 11:12 09/23/16 15:35 09/23/16 18:57 09/23/16 21:52 Bedside Glucose 231 H 271 H 242 H 246 H Test 09/23/16 21:54 09/24/16 02:20 09/24/16 05:41 09/24/16 08:29 Sodium Level 148 H Bedside Glucose 214 223 H 238 H Medications Medications Current Medications Ondansetron HCl (Zofran Inj) 4 mg Q6H PRN IV NAUSEA AND/OR VOMITING; Start at 09:00 Acetaminophen (Tylenol Supp) 650 mg Q4H PRN [place] PAIN LEVEL 1-3 OR FEVER Last administered on 09/23/16t 08:38; Admin Dose 650 MG; Start 09/21/16 at 09:00 Morphine Sulfate (morphine) 2 mg Q4H PRN IV PAIN LEVEL 7-10; Start 09/21/16 at 09:00 Pantoprazole (Protonix Iv) 40 mg DAILY@06 IV Last administered on 09/24/16 05: 40; Admin Dose 40 MG; Start 09/22/16 at 06:00 Lorazepam 1 mg 1 mg Q2H PRN IV Seizures; Start 09/21/16 at 09:30 Propofol (Diprivan) 100 ml @ 1.95 mls/hr Q12H IV ; Start 09/21/16 at 09:30 Amiodarone HCl (Cordarone) 200 mg DAILY PO Last administered on 09/24/16 08:31 ; Admin Dose 200 MG; Start 09/22/16 at 09:00 Digoxin (Digoxin) 0.125 mg DAILY PO Last administered on 09/24/16 08:31; Admin Dose 0.125 MG; Start 09/22/16 at 09:00 Losartan Potassium (Cozaar) 50 mg DAILY PO Last administered on 09/24/16 08:31 ; Admin Dose 50 MG; Start 09/22/16 at 09:00 Atorvastatin Calcium (Lipitor) 40 mg DAILY@21 PO Last administered on 21:44; Admin Dose 40 MG; Start 09/21/16 at 21:00 Insulin Aspart (Novolog Insulin Pen) NOVOLOG *MILD* ALGORITHM Q4H SC Last administered on 09/24/16 08:52; Admin Dose 3 UNIT; Start 09/21/16 at 10:00 Furosemide (Lasix) 40 mg DAILY IV Last administered on 09/24/16 08:32; Admin Dose 40 MG; Start 09/21/16 at 10:00 Miscellaneous Information 1 ea NOTE XX ; Start 09/21/16 at 10:00 Glucose (Glutose) 15 gm Q15M PRN PO DECREASED GLUCOSE; Start 09/21/16 at 10:00 Glucose (Glutose) 22.5 gm Q15M PRN PO DECREASED GLUCOSE; Start 09/21/16 at 10: 00 Dextrose (D50w Syringe) 25 ml Q15M PRN IV DECREASED GLUCOSE; Start 09/21/16 at 10:00 Dextrose (D50w Syringe) 50 ml Q15M PRN IV DECREASED GLUCOSE; Start 09/21/16 at 10:00 Glucagon (Glucagen) 1 mg Q15M PRN IM DECREASED GLUCOSE; Start 09/21/16 at 10:00 Glucose 15 gm 15 gm Q15M PRN BUCCAL DECREASED GLUCOSE; Start 09/21/16 at 10:00 Vancomycin HCl/ Sodium Chloride (Vancocin/NS) 250 ml @ 83.333 mls/ hr Q24H IVPB Last administered on 09/24/16 00:13; Admin Dose 83.333 MLS/HR; Start at 00:00 Metoprolol Tartrate (Lopressor) 50 mg BID NGT Last administered on 09/24/16 08 :31; Admin Dose 50 MG; Start 09/22/16 at 10:00 Ferrous Sulfate 300 mg 300 mg BID NGT Last administered on 09/24/16 08:30; Admin Dose 300 MG; Start 09/22/16 at 10:00 Sodium Chloride 500 ml @ 20 mls/hr Q24H PRN IV SODIUM <140; Start 09/23/16 at 10:00 Sodium Chloride (NS) 1,000 ml @ 20 mls/hr Q24H IV Last administered on 10:39; Admin Dose 20 MLS/HR; Start 09/23/16 at 10:00 STEPHEN PAULA M.D. September 24, 2016 09:18
--- NOTE | 2016-09-24 09:48 | CONS ---
Date/Time of Note Date/Time of Note DATE: 09/24/16 TIME: 09:45 Assessment/Plan Assessment/Plan Additional Assessment/Plan Ventilator settings; AC of 18, tidal volume 450, PEEP of 5, 30% FiO2. Assessment recommendations; 1. Patient admitted for intracranial bleed at multiple locations, patient is deemed too high risk for any neurosurgical intervention. 2. Extremely poor mental status. 3. History of hypertension, diabetes, hypothyroidism. 4. Gram-negative bacteremia. 5. Chronic atrial fibrillation. Next Continue current supportive care. Will obtain follow-up chest x-ray. Incentive stopping vancomycin and switching the patient to ampicillin. Prognosis remains very poor. 35 minutes critical care time spent evaluating the patient. Consultation Date/Type/Reason Admit Date/Time September 21, 2016 at 08:29 Initial Consult Date 09/21/16 Type of Consultation: Pulmonary/critical care Referring Provider: LAINEY AGARWAL 24 HR Interval Summary Free Text/Dictation Patient's condition remains critical. Remains completely unresponsive. Patient however has remained hemodynamically stable. General exam; elderly woman, orally intubated, unresponsive. Currently in no distress. Exam/Review of Systems Vital Signs Vitals Vital Signs Date Time Temp Pulse Resp B/P Pulse Ox O2 Delivery O2 Flow Rate FiO2 09/24/16 09:00 80 20 113/62 97 Mechanical Ventilator 09/24/16 08:00 98.5 09/24/16 05:33 30 Intake and Output 09/23/16 09/23/16 09/24/16 15:00 23:00 07:00 Intake Total 500 ml 560 ml 800 ml Output Total 1000 ml 480 ml 230 ml Balance -500 ml 80 ml 570 ml Exam H EENT examination; supple neck, no JVD. No lymphadenopathy. Midline trachea. No thyromegaly. Patient has bilateral intraocular lens implants. She is edentulous. Orally intubated. Chest examination; clear to auscultation. S1-S2 audible, irregular rhythm. No murmurs. Abdomen examination; soft, nondistended. No organomegaly. Bowel sounds audible. Extremity examination; no peripheral edema. [employer] examination; patient remains completely unresponsive. Results Result Diagram: 09/23/16 0455 09/23/16 5064 Results 24 hrs Laboratory Tests Test 09/23/16 11:12 09/23/16 15:35 09/23/16 18:57 09/23/16 21:52 Bedside Glucose 231 H 271 H 242 H 246 H Test 09/23/16 21:54 09/24/16 02:20 09/24/16 05:41 09/24/16 08:29 Sodium Level 148 H Bedside Glucose 214 223 H 238 H Medications Medications Current Medications Ondansetron HCl (Zofran Inj) 4 mg Q6H PRN IV NAUSEA AND/OR VOMITING; Start at 09:00 Acetaminophen (Tylenol Supp) 650 mg Q4H PRN [place] PAIN LEVEL 1-3 OR FEVER Last administered on 09/23/16 08:38; Admin Dose 650 MG; Start 09/21/16 at 09:00 Morphine Sulfate (morphine) 2 mg Q4H PRN IV PAIN LEVEL 7-10; Start 09/21/16 at 09:00 Pantoprazole (Protonix Iv) 40 mg DAILY@06 IV Last administered on 09/24/16 05: 40; Admin Dose 40 MG; Start 09/22/16 at 06:00 Lorazepam 1 mg 1 mg Q2H PRN IV Seizures; Start 09/21/16 at 09:30 Propofol (Diprivan) 100 ml @ 1.95 mls/hr Q12H IV ; Start 09/21/16 at 09:30 Amiodarone HCl (Cordarone) 200 mg DAILY PO Last administered on 09/24/16 08:31 ; Admin Dose 200 MG; Start 09/22/16 at 09:00 Digoxin (Digoxin) 0.125 mg DAILY PO Last administered on 09/24/16 08:31; Admin Dose 0.125 MG; Start 09/22/16 at 09:00 Losartan Potassium (Cozaar) 50 mg DAILY PO Last administered on 09/24/16 08:31 ; Admin Dose 50 MG; Start 09/22/16 at 09:00 Atorvastatin Calcium (Lipitor) 40 mg DAILY@21 PO Last administered on 21:44; Admin Dose 40 MG; Start 09/21/16 at 21:00 Insulin Aspart (Novolog Insulin Pen) NOVOLOG *MILD* ALGORITHM Q4H SC Last administered on 09/24/16 08:52; Admin Dose 3 UNIT; Start 09/21/16 at 10:00 Furosemide (Lasix) 40 mg DAILY IV Last administered on 09/24/16 08:32; Admin Dose 40 MG; Start 09/21/16 at 10:00 Miscellaneous Information 1 ea NOTE XX ; Start 09/21/16 at 10:00 Glucose (Glutose) 15 gm Q15M PRN PO DECREASED GLUCOSE; Start 09/21/16 at 10:00 Glucose (Glutose) 22.5 gm Q15M PRN PO DECREASED GLUCOSE; Start 09/21/16 at 10: 00 Dextrose (D50w Syringe) 25 ml Q15M PRN IV DECREASED GLUCOSE; Start 09/21/16 at 10:00 Dextrose (D50w Syringe) 50 ml Q15M PRN IV DECREASED GLUCOSE; Start 09/21/16 at 10:00 Glucagon (Glucagen) 1 mg Q15M PRN IM DECREASED GLUCOSE; Start 09/21/16 at 10:00 Glucose 15 gm 15 gm Q15M PRN BUCCAL DECREASED GLUCOSE; Start 09/21/16 at 10:00 Vancomycin HCl/ Sodium Chloride (Vancocin/NS) 250 ml @ 83.333 mls/ hr Q24H IVPB Last administered on 09/24/16 00:13; Admin Dose 83.333 MLS/HR; Start at 00:00 Metoprolol Tartrate (Lopressor) 50 mg BID NGT Last administered on 09/24/16 08 :31; Admin Dose 50 MG; Start 09/22/16 at 10:00 Ferrous Sulfate 300 mg 300 mg BID NGT Last administered on 09/24/16 08:30; Admin Dose 300 MG; Start 09/22/16 at 10:00 Sodium Chloride 500 ml @ 20 mls/hr Q24H PRN IV SODIUM <140; Start 09/23/16 at 10:00 Sodium Chloride (NS) 1,000 ml @ 20 mls/hr Q24H IV Last administered on 10:39; Admin Dose 20 MLS/HR; Start 09/23/16 at 10:00 JAY LEONARDO September 24, 2016 09:48
[2016-09-24] MEDS: SOD CHLORIDE 0.9% 1,000 ML IV SCH (10:00)
--- NOTE | 2016-09-24 12:51 | PN ---
Date/Time of Note Date/Time of Note DATE: 09/24/16 TIME: 12:48 Assessment/Plan VTE Prophylaxis VTE Prophylaxis Intervention: SCD's Lines/Catheters IV [facility]atheter Type (from [facility]): Peripheral IV Urinary Cath still in place: Yes Reason Cath still needed: other (indicate) Assessment/Plan Chief Complaint/Hosp Course 1. Intracranial bleeding including intraparenchymal hematoma and bilateral subdural hematomas with midline shift. Neurosurgery on the case. Continue ICP lowering measures including hyperventilation. The patient will be maintained on seizure precautions. No surgical interventions as of now. 2. Accelerated hypertension. Continue antihypertensives as per cardiology recommendations. 3. Atrial fibrillation. The patient's heart rate is currently controlled. The patient will be continued on amiodarone and digoxin. 4. Cardiomyopathy with ejection fraction of 30% with stage III and stage IV diastolic dysfunction. The patient will be continued on beta blockers and ARB' s. 5. Hypothyroidism. The patient will be continued on Synthroid. 6. Hyperlipidemia. Continue statins. 7. Type 2 diabetes mellitus. Continue SSI. Sugars running high. We will start the patient on Lantus insulin 30 8. Normocytic anemia. The patient has a history of iron deficiency. Continue iron supplements. 9. Thrombocytopenia. The patient will be monitored for any bleeding. Avoid any antiplatelet or anticoagulants. 10. Sepsis with underlying gram-positive bacteremia. The patient was started on vancomycin. No evidence of any septic shock. Continue antibiotics as per infectious diseases. 11. Fluids, electrolytes, and nutrition. Tube feedings. 12. DVT prophylaxis. Bilateral sequential compression devices. 13. Gastrointestinal prophylaxis. Proton pump inhibitors. 14. Plan. Continue ICU monitoring. Continue ICP lowering measures including elevation of bed, hyperventilation, and keeping the sodium high. Case discussed with Dr. Shrestha. Critical care time: 35 minutes. Problems: Subjective 24 Hr Interval Summary Free Text/Dictation Patient's condition remains unchanged. Blood sugars running on the higher side Exam/Review of Systems Vital Signs Vitals Vital Signs Date Time Temp Pulse Resp B/P Pulse Ox O2 Delivery O2 Flow Rate FiO2 09/24/16 12:00 80 09/24/16 11:00 18 105/57 98 Mechanical Ventilator 09/24/16 09:00 30 09/24/16 08:00 98.5 Intake and Output 09/23/16 09/23/16 09/24/16 15:00 23:00 07:00 Intake Total 500 ml 560 ml 850 ml Output Total 1000 ml 480 ml 270 ml Balance -500 ml 80 ml 580 ml Exam GENERAL: This is an elderly female patient lying in bed, orally intubated and mechanically ventilated. HEENT: Head normocephalic and atraumatic. Eyes: Anicteric sclerae. Conjunctivae clear. Pupils are slightly sure reactive bilaterally. ENT: Nasal septum is midline. Oral mucosa is dry. Orally intubated. NECK: Supple. No JVD noticed. RESPIRATORY: Bilaterally diminished breath sounds. No adventitious breath sounds heard. On AC mode ventilation. CARDIAC: Regular rate and rhythm. S1, S2 heard. Grade III/ systolic ejection murmur. ABDOMEN: Soft, scaphoid. Nontender. Bowel sounds hypoactive in all 4 quadrants. GENITOURINARY: The patient has a Macedo catheter in place. EXTREMITIES: No cyanosis, no clubbing, no edema. Peripheral pulses are palpable. NEUROLOGIC: The patient is unresponsive. Has some purposeful movement of the left upper extremity. Withdrawal to pain of bilateral lower extremities and right upper external. Results Result Diagram: 09/23/16 0455 09/24/16 1013 Results 24 hrs Laboratory Tests Test 09/23/16 15:35 09/23/16 18:57 09/23/16 21:52 09/23/16 21:54 Bedside Glucose 271 H 242 H 246 H Sodium Level 148 H Test 09/24/16 02:20 09/24/16 05:41 09/24/16 08:29 09/24/16 10:13 Bedside Glucose 214 223 H 238 H Sodium Level 152 H Medications Medications Current Medications Ondansetron HCl (Zofran Inj) 4 mg Q6H PRN IV NAUSEA AND/OR VOMITING; Start at 09:00 Acetaminophen (Tylenol Supp) 650 mg Q4H PRN [place] PAIN LEVEL 1-3 OR FEVER Last administered on 09/23/16 08:38; Admin Dose 650 MG; Start 09/21/16 at 09:00 Morphine Sulfate (morphine) 2 mg Q4H PRN IV PAIN LEVEL 7-10; Start 09/21/16 at 09:00 Pantoprazole (Protonix Iv) 40 mg DAILY@06 IV Last administered on 09/24/16 05: 40; Admin Dose 40 MG; Start 09/22/16 at 06:00 Lorazepam 1 mg 1 mg Q2H PRN IV Seizures; Start 09/21/16 at 09:30 Propofol (Diprivan) 100 ml @ 1.95 mls/hr Q12H IV ; Start 09/21/16 at 09:30 Amiodarone HCl (Cordarone) 200 mg DAILY PO Last administered on 09/24/16 08:31 ; Admin Dose 200 MG; Start 09/22/16 at 09:00 Digoxin (Digoxin) 0.125 mg DAILY PO Last administered on 09/24/16 08:31; Admin Dose 0.125 MG; Start 09/22/16 at 09:00 Losartan Potassium (Cozaar) 50 mg DAILY PO Last administered on 09/24/16 08:31 ; Admin Dose 50 MG; Start 09/22/16 at 09:00 Atorvastatin Calcium (Lipitor) 40 mg DAILY@21 PO Last administered on 21:44; Admin Dose 40 MG; Start 09/21/16 at 21:00 Insulin Aspart (Novolog Insulin Pen) NOVOLOG *MILD* ALGORITHM Q4H SC Last administered on 09/24/16 08:52; Admin Dose 3 UNIT; Start 09/21/16 at 10:00 Furosemide (Lasix) 40 mg DAILY IV Last administered on 09/24/16 08:32; Admin Dose 40 MG; Start 09/21/16 at 10:00 Miscellaneous Information 1 ea NOTE XX ; Start 09/21/16 at 10:00 Glucose (Glutose) 15 gm Q15M PRN PO DECREASED GLUCOSE; Start 09/21/16 at 10:00 Glucose (Glutose) 22.5 gm Q15M PRN PO DECREASED GLUCOSE; Start 09/21/16 at 10: 00 Dextrose (D50w Syringe) 25 ml Q15M PRN IV DECREASED GLUCOSE; Start 09/21/16 at 10:00 Dextrose (D50w Syringe) 50 ml Q15M PRN IV DECREASED GLUCOSE; Start 09/21/16 at 10:00 Glucagon (Glucagen) 1 mg Q15M PRN IM DECREASED GLUCOSE; Start 09/21/16 at 10:00 Glucose 15 gm 15 gm Q15M PRN BUCCAL DECREASED GLUCOSE; Start 09/21/16 at 10:00 Vancomycin HCl/ Sodium Chloride (Vancocin/NS) 250 ml @ 83.333 mls/ hr Q24H IVPB Last administered on 09/24/16 00:13; Admin Dose 83.333 MLS/HR; Start at 00:00 Metoprolol Tartrate (Lopressor) 50 mg BID NGT Last administered on 09/24/16 08 :31; Admin Dose 50 MG; Start 09/22/16 at 10:00 Ferrous Sulfate 300 mg 300 mg BID NGT Last administered on 09/24/16 08:30; Admin Dose 300 MG; Start 09/22/16 at 10:00 Sodium Chloride 500 ml @ 20 mls/hr Q24H PRN IV SODIUM <140; Start 09/23/16 at 10:00 Sodium Chloride (NS) 1,000 ml @ 20 mls/hr Q24H IV Last administered on 10:39; Admin Dose 20 MLS/HR; Start 09/23/16 at 10:00 Insulin Glargine (Lantus) 8 unit DAILY@20 SC ; Start 09/24/16 at 12:30 Miscellaneous Information (*Rx Drug Level Order Reminder*) 1 ONCE ONCE XX ; Start 09/24/16 at 23:00; Stop 09/24/16 at 23:01 MARTY HOLLAND NP September 24, 2016 12:51
[2016-09-24] MEDS: INSULIN GLARGINE [LANtus] 3 ML PEN SC SCH (14:12)
[2016-09-24] MEDS: LEVETIRACETAM 500 MG (PMX) 100 ML IVPB SCH ×2 (14:32→22:14)
--- NOTE | 2016-09-24 15:12 | CONS ---
Date/Time of Note Date/Time of Note DATE: 09/24/16 TIME: 15:10 Assessment/Plan Assessment/Plan Chief Complaint/Hosp Course ID PROGRESS NOTE TOTAL ABX DAY #3 => Vanco IV 24H INTERVAL SUMMARY * F/U to Dr. Buchanan note dictation => ABX Tx recommended either Vanco IV vs Ampicillin * No changes on exam today -- Orally intubated->Vented, obtunded, afebrile, VSS ->Started on Vanco IV for (+)BCx * CXR: 09/23/16: IMPRESSION: * Bilateral hazy opacities could represent pulmonary edema and/or multifocal pneumonia, slightly decreased compared with the prior study. * Mild bibasilar atelectasis and possible small left pleural effusion, unchanged. * Cardiomegaly and aortic atherosclerosis. * Endotracheal and nasogastric tubes in place. * MICRO: BLOOD CULTURE Final BCULT GRAM BOTTLE 1 Gram positive cocci in pairs and chains . seen on gram stain of the broth Organism 1 STREP GRP D NOT ENTEROCOCCUS STR GRP D Zone Size RX --------- --- * AMPICILLIN S * CEFAZOLIN S * CEFOTAXIME S * CEFUROXIME S * CIPROFLOXACIN R * CLINDAMYCIN S * ERYTHROMYCIN R * PENICILLIN S * VANCOMYCIN S PHYSICAL EXAMINATION: GENERAL: VSS, obtunded, no fevers HEENT: ETT-> Secure to Vent, NGT NECK: Supple CHEST: Equal chest rise bilaterally, without dyspnea on observation HEART: Irr/Irr, II/ aortic Murmur ABDOMEN: Soft, overweight EXTREMITIES: Warm, left hemiparesis SKIN: Warm, dry ID ASSESSMENT: 76 yo F W/PMHX HTN, HLD, DMII, AFIB-> on Apixaban w/pacemaker, Heart Failure... => BIB EMS 09/21/16 w/facial droop, weakness, left hemiplegia admitted to [facility] ICU with: 1. QUERY Sepsis vs SIRS with hypothermic temperature 94.8,HTN Crisis, tachycardia, and acute ICH on presentation to ED * Tmax 100.8 in ED, Intubated in ED 09/21/16 * BCx 09/21/16 (+)Group D Strep (not enterococcus) => Etiology Unclear? DDx = r/ o SBE vs ?Biliary ? * UA/Urine Cx (-) 2. Intracranial bleeding including intraparenchymal hematoma and bilateral subdural hematomas with midline shift. * Neurosurgery on the case-> ICP lowering measures including hyperventilation & SZS precautions. No surgical interventions as of now. 3. Accelerated hypertension-> Cardiology & Neuro on the case 4. Atrial fibrillation rate controlled, hx of SSS? Pacemaker in situ vs ICD?- > On amiodarone and digoxin. 5. Acute Heart Failure exacerbation w/pulmonary edema CXR on admission => Mixed Systolic + Diastolic w/EF ~30% with stage III and stage IV diastolic dysfunction. 6. Aspiration Pneumonitis suspected in setting acute ICH w/facial droop 7. Acute respiratory failure -> Orally intubated in ED 09/21/16 8. Hypothyroidism on Synthroid. 9. Hyperlipidemia, on statin 10. Type 2 diabetes mellitus. 11. Normocytic anemia w/history of iron deficiency 12. Thrombocytopenia (-)MRSA Nares Screen INVASIVES: *PIV, ETT, OGT, FC ABX ALLERGIES: KNDA CURRENT ABX: DAY #3 => Vanco IV ID RECOMMENDATIONS: 1. Repeat BCx x2, sputum for C&S 2. Consider 2D ECHO r/o SBE, aortic murmur present on auscultation 3. Consider liver BART r/o biliary etiology 4. Continue Vanco IV for now - await further recs LITERATURE REVIEW [email or web address] Streptococcus Group D Infections Clinical Presentation Updated: Feb 23, 2015 * Author: Supa Mora MD; Chief Management Advisor: George Tafoya MD more... History Meningitis, peritonitis, septic arthritis, urinary tract infections, and sepsis due to group D streptococci have clinical features referable to the site of infection. When due to group D streptococcal infection, the clinical features do not differ from other bacterial causes of these infections. * Group D streptococcal endocarditis * Subacute endocarditis with persistent fever lasting days or weeks * Associated with nonspecific symptoms of systemic lupus erythematosus, including anorexia, weight loss, fatigue, night sweats, and weakness * Group D streptococcal bacteremia * Fever * Only possible to distinguish from endocarditis with patient history and echocardiography Treatment "Most S bovis isolates are susceptible to penicillin (JAIR = 0.1 mg/L) and should be treated with intravenous penicillin G or ceftriaxone for 4 weeks. An alternative for only uncomplicated cases of ruby-valve endocarditis is a 2- week course of therapy with a combination of penicillin G or ceftriaxone and gentamicin. For moderately susceptible isolates (JAIR >0.1 mg/L, JAIR = 0.5 mg/L) , penicillin or ceftriaxone and gentamicin should be administered for 4 weeks and 2 weeks, respectively. [13] " ```````````````````````````````````````````````````````````````````````````````` ```````````````````````````````````````````````````````````````````````````````` ```````````````````````````````````````````````````````````````````````````````` `````````````````` Problems: Consultation Date/Type/Reason Admit Date/Time September 21, 2016 at 08:29 Initial Consult Date 09/21/16 Type of Consultation: ID Referring Provider: LAINEY AGARWAL Exam/Review of Systems Vital Signs Vitals Vital Signs Date Time Temp Pulse Resp B/P Pulse Ox O2 Delivery O2 Flow Rate FiO2 09/24/16 14:00 84 20 126/58 99 Mechanical Ventilator 09/24/16 12:00 99.0 09/24/16 09:00 30 Intake and Output 09/23/16 09/23/16 09/24/16 15:00 23:00 07:00 Intake Total 500 ml 560 ml 850 ml Output Total 1000 ml 480 ml 270 ml Balance -500 ml 80 ml 580 ml Results Result Diagram: 09/23/16 0455 09/24/16 1013 Results 24 hrs Laboratory Tests Test 09/23/16 15:35 09/23/16 18:57 09/23/16 21:52 09/23/16 21:54 Bedside Glucose 271 H 242 H 246 H Sodium Level 148 H Test 09/24/16 02:20 09/24/16 05:41 09/24/16 08:29 09/24/16 10:13 Bedside Glucose 214 223 H 238 H Sodium Level 152 H Test 09/24/16 13:08 Bedside Glucose 228 H Medications Medications Current Medications Ondansetron HCl (Zofran Inj) 4 mg Q6H PRN IV NAUSEA AND/OR VOMITING; Start at 09:00 Acetaminophen (Tylenol Supp) 650 mg Q4H PRN [place] PAIN LEVEL 1-3 OR FEVER Last administered on 09/23/16 08:38; Admin Dose 650 MG; Start 09/21/16 at 09:00 Morphine Sulfate (morphine) 2 mg Q4H PRN IV PAIN LEVEL 7-10; Start 09/21/16 at 09:00 Pantoprazole (Protonix Iv) 40 mg DAILY@06 IV Last administered on 09/24/16 05: 40; Admin Dose 40 MG; Start 09/22/16 at 06:00 Lorazepam 1 mg 1 mg Q2H PRN IV Seizures; Start 09/21/16 at 09:30 Propofol (Diprivan) 100 ml @ 1.95 mls/hr Q12H IV ; Start 09/21/16 at 09:30 Amiodarone HCl (Cordarone) 200 mg DAILY PO Last administered on 09/24/16 08:31 ; Admin Dose 200 MG; Start 09/22/16 at 09:00 Digoxin (Digoxin) 0.125 mg DAILY PO Last administered on 09/24/16 08:31; Admin Dose 0.125 MG; Start 09/22/16 at 09:00 Losartan Potassium (Cozaar) 50 mg DAILY PO Last administered on 09/24/16 08:31 ; Admin Dose 50 MG; Start 09/22/16 at 09:00 Atorvastatin Calcium (Lipitor) 40 mg DAILY@21 PO Last administered on 21:44; Admin Dose 40 MG; Start 09/21/16 at 21:00 Insulin Aspart (Novolog Insulin Pen) NOVOLOG *MILD* ALGORITHM Q4H SC Last administered on 09/24/16 13:13; Admin Dose 3 UNIT; Start 09/21/16 at 10:00 Furosemide (Lasix) 40 mg DAILY IV Last administered on 09/24/16 08:32; Admin Dose 40 MG; Start 09/21/16 at 10:00 Miscellaneous Information 1 ea NOTE XX ; Start 09/21/16 at 10:00 Glucose (Glutose) 15 gm Q15M PRN PO DECREASED GLUCOSE; Start 09/21/16 at 10:00 Glucose (Glutose) 22.5 gm Q15M PRN PO DECREASED GLUCOSE; Start 09/21/16 at 10: 00 Dextrose (D50w Syringe) 25 ml Q15M PRN IV DECREASED GLUCOSE; Start 09/21/16 at 10:00 Dextrose (D50w Syringe) 50 ml Q15M PRN IV DECREASED GLUCOSE; Start 09/21/16 at 10:00 Glucagon (Glucagen) 1 mg Q15M PRN IM DECREASED GLUCOSE; Start 09/21/16 at 10:00 Glucose 15 gm 15 gm Q15M PRN BUCCAL DECREASED GLUCOSE; Start 09/21/16 at 10:00 Vancomycin HCl/ Sodium Chloride (Vancocin/NS) 250 ml @ 83.333 mls/ hr Q24H IVPB Last administered on 09/24/16 00:13; Admin Dose 83.333 MLS/HR; Start at 00:00 Metoprolol Tartrate (Lopressor) 50 mg BID NGT Last administered on 09/24/16 08 :31; Admin Dose 50 MG; Start 09/22/16 at 10:00 Ferrous Sulfate 300 mg 300 mg BID NGT Last administered on 09/24/16 08:30; Admin Dose 300 MG; Start 09/22/16 at 10:00 Sodium Chloride 500 ml @ 20 mls/hr Q24H PRN IV SODIUM <140; Start 09/23/16 at 10:00 Sodium Chloride (NS) 1,000 ml @ 20 mls/hr Q24H IV Last administered on 10:39; Admin Dose 20 MLS/HR; Start 09/23/16 at 10:00 Insulin Glargine (Lantus) 8 unit DAILY@20 SC Last administered on 09/24/16 14: 12; Admin Dose 8 UNIT; Start 09/24/16 at 12:30 Miscellaneous Information 1 ONCE ONCE XX ; Start 09/24/16 at 23:00; Stop at 23:01 Levetiracetam (Keppra 500 Mg/ 100ml (Pmx)) 100 ml @ 400 mls/hr BID IVPB Last administered on 09/24/16 14:32; Admin Dose 400 MLS/HR; Start 09/24/16 at 14:30 DANTE THOMPSON NP September 24, 2016 15:12
--- NOTE | 2016-09-24 17:09 | RADRPT ---
Echocardiogram Report Patient Name: TAMARA BERNSTEIN Gender: Female Date: 1940 Study Date: 24-Sep-2016 Commercial Insurance Underwriter: [facility] Location: 111 Ref. Physician: JÚNIOR KELLEY Quality: Adequate Procedures: Transthoracic echocardiogram with complete 2D, M-Mode, and doppler examination. Indications: Atrial Fibrillation. 2D/M Mode Doppler Measurement Value Normal Ranges Measurement Value Normal Ranges LVIDd 2D 3.6 3.5 - 5.6 cm STEFAN Vmax 0.6 cm2 LVIDs 2D 3.3 2.1 - 4.1 cm STEFAN VTI 0.6 cm2 LVPWd 2D 1.5 0.6 - 1.1 cm AV Mean Ashutosh 2.9 m/sec IVSd 2D 1.3 0.6 - 1.1 cm AV Mean PG 38.1 mmHg AoR Diam 2D 1.9 2.0 - 3.7 cm AV Peak Ashutosh 4.0 m/sec EDV 2D 55.0 cm3 AV Peak PG 64.0 mmHg ESV 2D 35.2 cm3 AV VTI 86.0 cm LA Dimen 2D 4.8 2.3 - 4.0 cm AI Peak PG 13.2 mmHg LVOT Diam 1.8 cm AI Peak Ashutosh 1.8 m/sec AI PHT 584.0 msec LVOT Mean Ashutosh 0.6 m/sec LVOT Mean PG 1.9 mmHg LVOT Peak Ashutosh 0.9 m/sec LVOT Peak PG 3.3 mmHg LVOT VTI 20.1 cm MV E Peak Ashutosh 0.9 m/sec MV A Peak Ashutosh 0.5 m/sec MV E/A 1.7 MV Decel Time 248 msec MV Decel Bleckley 4 MV E/A 1.7 TR Peak Ashutosh 3.0 m/sec TR Peak PG 35.2 mmHg Findings Left Ventricle: Normal left ventricular cavity size. Mild concentric left ventricular hypertrophy. Moderate global left ventricular systolic dysfunction. Ejection fraction is visually estimated at 40 %. Right Ventricle: Normal right ventricular size. Normal right ventricular systolic function. Pacemaker right heart. Left Atrium: There is mild enlargement of left atrium. Right Atrium: Right atrium at upper limits of normal. Mitral Valve: Mild mitral leaflet calcification. Mild mitral annular calcification. Mild mitral valve regurgitation. Aortic Valve: Moderate to severe aortic stenosis. Aortic valve Max velocity 4.00 m/sec. Max PG 64.00 mmHg. Mean PG 38.10 mmHg. Aortic valve area 0.60 cm2. Aortic cusps appear moderately calcified. Trace aortic valve regurgitation. Tricuspid Valve: Normal appearance and function of the tricuspid valve with trace physiologic regurgitation. Estimated peak PA systolic pressure 43 mmHg. There is mild tricuspid regurgitation. Pulmonic Valve: Pulmonic valve not well visualized. There is trace pulmonic regurgitation. Pericardium: Normal pericardium with no significant pericardial effusion. Aorta: Normal aortic root. IVC: Dilated IVC with poor inspiratory collapse consistent with elevated right atrial pressure. Conclusions Normal left ventricular cavity size. Mild concentric left ventricular hypertrophy. Moderate global left ventricular systolic dysfunction. Ejection fraction is visually estimated at 40 %. Mild mitral leaflet calcification. Mild mitral annular calcification. Mild mitral valve regurgitation. Normal right ventricular size. Normal right ventricular systolic function. Pacemaker right heart. Moderate to severe aortic stenosis. Aortic valve Max velocity 4.00 m/sec. Max PG 64.00 mmHg. Mean PG 38.10 mmHg. Aortic valve area 0.60 cm2. Aortic cusps appear moderately calcified. Trace aortic valve regurgitation. Normal appearance and function of the tricuspid valve with trace physiologic regurgitation. Estimated peak PA systolic pressure 43 mmHg. There is mild tricuspid regurgitation. Moderate Pulmonary Hypertension. Normal pericardium with no significant pericardial effusion. Electronically Signed By: Champ Venegas 24-Sep-2016 17:08:46 -0700 Patient Name: TAMARA BERNSTEIN Study Date: 24-Sep-2016 [id number]
--- NOTE | 2016-09-24 17:23 | RADRPT ---
PROCEDURE: XR Chest. CLINICAL INDICATION: Shortness of breath. TECHNIQUE: Single frontal view. COMPARISON: 09/22/2016. FINDINGS: The endotracheal tube, nasogastric tube, and left-sided permanent pacemaker/internal cardiac defibri llator are in satisfactory position. There is mild pulmonary edema and left basilar atelectasis, un changed. The lungs are otherwise clear. The heart is enlarged. There is calcification in the aorta consistent with atherosclerosis. There are possible small bilateral pleural effusions. There is no pneumothorax. IMPRESSION: 1. No change from 09/22/2016. RPTAT: QQ .Natalio Kim MD, MD Date Time Electronically viewed and signed by .Natalio Kim MD, on 09/24/2016 17:22 .R/
[2016-09-24] MEDS: ATORVASTATIN 40 MG TAB PO SCH (21:25)
[2016-09-25] VITALS (36 sets, daily range): BP systolic 87–149; BP diastolic 46–71; PULSE 79–87; RESP 17–21
[2016-09-25] MEDS: VANCOMYCIN 1.25 GM in SOD CHLORIDE 0.9% 250 ML IVPB SCH (00:55)
[2016-09-25] MEDS: INSULIN ASPART [NOVOLOG] 3 ML PEN SC SCH ×6 (02:35→22:12)
[2016-09-25] MEDS: LEVOTHYROXINE 100 MCG TAB PO SCH (05:59)
[2016-09-25] MEDS: PANTOPRAZOLE 40 MG INJ IV SCH (05:59)
[2016-09-25 06:23] LABS: ADD SCAN DIFF NO
[2016-09-25 06:30] LABS: ABNORMAL IP MESSAGE 1; HEMATOCRIT 31.4 % (37.0-47.0); HEMOGLOBIN 9.4 g/dl (12.0-16.0); LYMPHOCYTES # 0.6 10^3/ul (0.8-2.9); LYMPHOCYTES % 8.6 % (15.0-51.0); MEAN CORPUSCULAR HEMOGLOBIN 27.9 pg (29.0-33.0); MEAN CORPUSCULAR HGB CONC 29.9 g/dl (32.0-37.0); MEAN CORPUSCULAR VOLUME 93.2 fl (82.0-101.0); MEAN PLATELET VOLUME 13.4 fl (7.4-10.4); MONOCYTE # 0.5 10^3/ul (0.3-0.9); MONOCYTES % 6.6 % (0.0-11.0); NEUTROPHILS % 84.1 % (39.0-77.0); PLATELET COUNT 111 10^3/UL (140-415); RED BLOOD COUNT 3.37 10^6/ul (4.20-5.40); RED CELL DISTRIBUTION WIDTH 17.6 % (11.5-14.5); WHITE BLOOD COUNT 7.1 10^3/ul (4.8-10.8)
[2016-09-25 06:59] LABS: MAGNESIUM 2.4 mg/dl (1.7-2.5); PHOSPHORUS 2.3 mg/dl (2.5-4.9)
[2016-09-25 07:10] LABS: CALCIUM 8.4 mg/dl (8.4-10.2); CREATININE 0.98 mg/dl (0.44-1.00); POTASSIUM 3.1 mmol/L (3.5-5.1)
--- NOTE | 2016-09-25 07:53 | PN ---
Date/Time of Note Date/Time of Note DATE: 09/25/16 TIME: 07:51 Assessment/Plan VTE Prophylaxis VTE Prophylaxis Intervention: SCD's Lines/Catheters IV [facility]from [facility] Saline Lock Urinary Cath still in place: Yes Reason Cath still needed: other (indicate) Assessment/Plan Chief Complaint/Hosp Course 1. Intracranial bleeding including intraparenchymal hematoma and bilateral subdural hematomas with midline shift. Neurosurgery on the case. Continue ICP lowering measures including hyperventilation. The patient will be maintained on seizure precautions. No surgical interventions as of now. 2. Accelerated hypertension. Continue antihypertensives as per cardiology recommendations. 3. Atrial fibrillation. The patient's heart rate is currently controlled. The patient will be continued on amiodarone and digoxin. 4. Cardiomyopathy with ejection fraction of 30% with stage III and stage IV diastolic dysfunction. The patient will be continued on beta blockers and ARB' s. 5. Hypothyroidism. The patient will be continued on Synthroid. 6. Hyperlipidemia. Continue statins. 7. Type 2 diabetes mellitus. Continue SSI. Sugars running high. We will start the patient on Lantus insulin 30 8. Normocytic anemia. The patient has a history of iron deficiency. Continue iron supplements. 9. Thrombocytopenia. The patient will be monitored for any bleeding. Avoid any antiplatelet or anticoagulants. 10. Sepsis with underlying bacteremia. The patient was started on vancomycin. No evidence of any septic shock. Continue antibiotics as per infectious diseases. 11. Fluids, electrolytes, and nutrition. Tube feedings. 12. DVT prophylaxis. Bilateral sequential compression devices. 13. Gastrointestinal prophylaxis. Proton pump inhibitors. 14. Plan. Continue ICU monitoring. Continue ICP lowering measures including elevation of bed, hyperventilation, and keeping the sodium high. Replete potassium and phosphorus. Case discussed with . Critical care time: 35 minutes. Problems: Subjective 24 Hr Interval Summary Free Text/Dictation Patient's condition remains unchanged. Exam/Review of Systems Vital Signs Vitals Vital Signs Date Time Temp Pulse Resp B/P Pulse Ox O2 Delivery O2 Flow Rate FiO2 09/25/16 07:00 83 133/57 98 Mechanical Ventilator 09/25/16 06:26 98.9 09/25/16 05:47 18 30 Intake and Output 09/24/16 09/24/16 09/25/16 15:00 23:00 07:00 Intake Total 580 ml 520 ml 650 ml Output Total 750 ml 410 ml 375 ml Balance -170 ml 110 ml 275 ml Exam GENERAL: This is an elderly female patient lying in bed, orally intubated and mechanically ventilated. HEENT: Head normocephalic and atraumatic. Eyes: Anicteric sclerae. Conjunctivae clear. Pupils are slightly sure reactive bilaterally. ENT: Nasal septum is midline. Oral mucosa is dry. Orally intubated. NECK: Supple. No JVD noticed. RESPIRATORY: Bilaterally diminished breath sounds. No adventitious breath sounds heard. On AC mode ventilation. CARDIAC: Regular rate and rhythm. S1, S2 heard. Grade III/ systolic ejection murmur. ABDOMEN: Soft, scaphoid. Nontender. Bowel sounds hypoactive in all 4 quadrants. GENITOURINARY: The patient has a Macedo catheter in place. EXTREMITIES: No cyanosis, no clubbing, no edema. Peripheral pulses are palpable. NEUROLOGIC: The patient is unresponsive. Has some purposeful movement of the left upper extremity. Withdrawal to pain of bilateral lower extremities and right upper extremity. Results Result Diagram: 09/25/1652909/25/16 0530 Results 24 hrs Laboratory Tests Test 09/24/16 08:29 09/24/16 10:13 09/24/16 13:08 09/24/16 17:29 Bedside Glucose 238 H 228 H 198 Sodium Level 152 H Test 09/24/16 20:50 09/24/16 21:23 09/24/16 22:55 09/25/16 02:25 Sodium Level 149 H Bedside Glucose 197 194 Vancomycin Level Trough 13.1 Test 09/25/16 05:30 09/25/16 05:45 White Blood Count 7.1 Red Blood Count 3.37 L Hemoglobin 9.4 L Hematocrit 31.4 L Mean Corpuscular Volume 93.2 Mean Corpuscular Hemoglobin 27.9 L Mean Corpuscular Hemoglobin Concent 29.9 L Red Cell Distribution Width 17.6 H Platelet Count 111 L Mean Platelet Volume 13.4 H Neutrophils % 84.1 H Lymphocytes % 8.6 L Monocytes % 6.6 Eosinophils % 0.0 Basophils % 0.0 Nucleated Red Blood Cells % 0.0 Neutrophils # 6.0 Lymphocytes # 0.6 L Monocytes # 0.5 Eosinophils # 0.0 Basophils # 0.0 Nucleated Red Blood Cells # 0.0 Sodium Level 152 H Potassium Level 3.1 L Chloride Level 118 H Carbon Dioxide Level 32 H Anion Gap 5 L Blood Urea Nitrogen 37 H Creatinine 0.98 Glucose Level 192 Calcium Level 8.4 Phosphorus Level 2.3 L Magnesium Level 2.4 Bedside Glucose 183 Medications Medications Current Medications Ondansetron HCl (Zofran Inj) 4 mg Q6H PRN IV NAUSEA AND/OR VOMITING; Start at 09:00 Acetaminophen (Tylenol Supp) 650 mg Q4H PRN [place] PAIN LEVEL 1-3 OR FEVER Last administered on 09/23/16 08:38; Admin Dose 650 MG; Start 09/21/16 at 09:00 Morphine Sulfate (morphine) 2 mg Q4H PRN IV PAIN LEVEL 7-10; Start 09/21/16 at 09:00 Pantoprazole (Protonix Iv) 40 mg DAILY@06 IV Last administered on 09/25/16 05: 59; Admin Dose 40 MG; Start 09/22/16 at 06:00 Lorazepam 1 mg 1 mg Q2H PRN IV Seizures; Start 09/21/16 at 09:30 Propofol (Diprivan) 100 ml @ 1.95 mls/hr Q12H IV ; Start 09/21/16 at 09:30 Amiodarone HCl (Cordarone) 200 mg DAILY PO Last administered on 09/24/16 08:31 ; Admin Dose 200 MG; Start 09/22/16 at 09:00 Digoxin (Digoxin) 0.125 mg DAILY PO Last administered on 09/24/16 08:31; Admin Dose 0.125 MG; Start 09/22/16 at 09:00 Losartan Potassium (Cozaar) 50 mg DAILY PO Last administered on 09/24/16 08:31 ; Admin Dose 50 MG; Start 09/22/16 at 09:00 Atorvastatin Calcium (Lipitor) 40 mg DAILY@21 PO Last administered on 21:25; Admin Dose 40 MG; Start 09/21/16 at 21:00 Insulin Aspart (Novolog Insulin Pen) NOVOLOG *MILD* ALGORITHM Q4H SC Last administered on 09/25/16 06:12; Admin Dose 2 UNIT; Start 09/21/16 at 10:00 Furosemide (Lasix) 40 mg DAILY IV Last administered on 09/24/16 08:32; Admin Dose 40 MG; Start 09/21/16 at 10:00 Miscellaneous Information 1 ea NOTE XX ; Start 09/21/16 at 10:00 Glucose (Glutose) 15 gm Q15M PRN PO DECREASED GLUCOSE; Start 09/21/16 at 10:00 Glucose (Glutose) 22.5 gm Q15M PRN PO DECREASED GLUCOSE; Start 09/21/16 at 10: 00 Dextrose (D50w Syringe) 25 ml Q15M PRN IV DECREASED GLUCOSE; Start 09/21/16 at 10:00 Dextrose (D50w Syringe) 50 ml Q15M PRN IV DECREASED GLUCOSE; Start 09/21/16 at 10:00 Glucagon (Glucagen) 1 mg Q15M PRN IM DECREASED GLUCOSE; Start 09/21/16 at 10:00 Glucose 15 gm 15 gm Q15M PRN BUCCAL DECREASED GLUCOSE; Start 09/21/16 at 10:00 Vancomycin HCl/ Sodium Chloride (Vancocin/NS) 250 ml @ 83.333 mls/ hr Q24H IVPB Last administered on 09/25/16 00:55; Admin Dose 83.333 MLS/HR; Start at 00:00 Metoprolol Tartrate (Lopressor) 50 mg BID NGT Last administered on 09/24/16 21 :25; Admin Dose 50 MG; Start 09/22/16 at 10:00 Ferrous Sulfate 300 mg 300 mg BID NGT Last administered on 09/24/16 21:24; Admin Dose 300 MG; Start 09/22/16 at 10:00 Sodium Chloride 500 ml @ 20 mls/hr Q24H PRN IV SODIUM <140; Start 09/23/16 at 10:00 Sodium Chloride (NS) 1,000 ml @ 20 mls/hr Q24H IV Last administered on 10:39; Admin Dose 20 MLS/HR; Start 09/23/16 at 10:00 Insulin Glargine 8 unit 8 unit DAILY@20 SC Last administered on 09/24/16 14:12 ; Admin Dose 8 UNIT; Start 09/24/16 at 12:30 Levetiracetam (Keppra 500 Mg/ 100ml (Pmx)) 100 ml @ 400 mls/hr BID IVPB Last administered on 09/24/16 22:14; Admin Dose 400 MLS/HR; Start 09/24/16 at 14:30 MARTY HOLLAND NP September 25, 2016 07:53
[2016-09-25] MEDS: FERROUS SULFATE 60 MG/ML 5ML CUP NGT SCH ×2 (08:24→21:04)
[2016-09-25] MEDS: FUROSEMIDE 40 MG INJ IV SCH (08:26)
[2016-09-25] MEDS: AMIODARONE 200 MG TAB PO SCH (08:26)
[2016-09-25] MEDS: LEVETIRACETAM 500 MG (PMX) 100 ML IVPB SCH ×2 (08:26→21:04)
[2016-09-25] MEDS: DIGOXIN 0.125 MG TAB PO SCH (08:27)
[2016-09-25] MEDS ORDERED: POTASSIUM PHOSPHATE 30 MM in SOD CHLORIDE 0.9% 250 ML IVPB ONE (09:00)
[2016-09-25] MEDS: LOSARTAN 50 MG TAB PO SCH (09:26)
[2016-09-25] MEDS: METOPROLOL 50 MG TAB NGT SCH ×2 (09:27→21:08)
[2016-09-25] MEDS: PROPOFOL 100 ML IV SCH ×2 (09:30→21:30)
--- NOTE | 2016-09-25 09:50 | CONS ---
Date/Time of Note Date/Time of Note DATE: 09/25/16 TIME: 09:47 Assessment/Plan Assessment/Plan Additional Assessment/Plan Ventilator setting; AC of 18, tidal volume 450, PEEP of 5, 30% FiO2. Chest x-ray was reviewed from yesterday evening which is showing mild bibasilar atelectasis. Assessment recommendations; 1. Patient admitted with respiratory failure due to multiple areas of intracranial bleed, patient deemed to high surgical risk for neurosurgical intervention. 2. Hypernatremia, 3. History of hypertension, diabetes, and hypothyroidism. 4. Gram-negative bacteremia. Discontinue Lasix, discontinue 3% saline. Consider changing vancomycin to ampicillin. Patient will undergo repeat CT imaging of the brain today. Prognosis appears very poor. Consultation Date/Type/Reason Admit Date/Time September 21, 2016 at 08:29 Initial Consult Date 09/21/16 Type of Consultation: Pulmonary/critical care Referring Provider: LAINEY AGARWAL 24 HR Interval Summary Free Text/Dictation Patient's condition remains critical. Remains completely unresponsive. No overt seizure activity noted. Has remained hemodynamically stable. General exam; elderly woman, orally intubated, unresponsive, currently in no distress. Exam/Review of Systems Vital Signs Vitals Vital Signs Date Time Temp Pulse Resp B/P Pulse Ox O2 Delivery O2 Flow Rate FiO2 09/25/16 09:16 80 18 98 30 09/25/16 09:00 133/60 Mechanical Ventilator 09/25/16 08:00 99.2 Intake and Output 09/24/16 09/24/16 09/25/16 15:00 23:00 07:00 Intake Total 580 ml 520 ml 650 ml Output Total 750 ml 410 ml 375 ml Balance -170 ml 110 ml 275 ml Results HEENT exam; supple neck, no JVD. No lymphadenopathy. Midline trachea. No thyromegaly. Orally intubated. Pupils are small bilaterally. Chest examination; clear to auscultation. S1-S2 audible, irregular rhythm. No murmurs. Abdomen examination; soft, nondistended. No organomegaly. Bowel sounds audible. Extremity examination; no peripheral edema. 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 Result Diagram: 09/25/16 0530 09/25/16 0530 Results 24 hrs Laboratory Tests Test 09/24/16 10:13 09/24/16 13:08 09/24/16 17:29 09/24/16 20:50 Sodium Level 152 H 149 H Bedside Glucose 228 H 198 Test 09/24/16 21:23 09/24/16 22:55 09/25/16 02:25 09/25/16 05:30 Bedside Glucose 197 194 Vancomycin Level Trough 13.1 White Blood Count 7.1 Red Blood Count 3.37 L Hemoglobin 9.4 L Hematocrit 31.4 L Mean Corpuscular Volume 93.2 Mean Corpuscular Hemoglobin 27.9 L Mean Corpuscular Hemoglobin Concent 29.9 L Red Cell Distribution Width 17.6 H Platelet Count 111 L Mean Platelet Volume 13.4 H Neutrophils % 84.1 H Lymphocytes % 8.6 L Monocytes % 6.6 Eosinophils % 0.0 Basophils % 0.0 Nucleated Red Blood Cells % 0.0 Neutrophils # 6.0 Lymphocytes # 0.6 L Monocytes # 0.5 Eosinophils # 0.0 Basophils # 0.0 Nucleated Red Blood Cells # 0.0 Sodium Level 152 H Potassium Level 3.1 L Chloride Level 118 H Carbon Dioxide Level 32 H Anion Gap 5 L Blood Urea Nitrogen 37 H Creatinine 0.98 Glucose Level 192 Calcium Level 8.4 Phosphorus Level 2.3 L Magnesium Level 2.4 Test 09/25/16 05:45 09/25/16 09:34 Bedside Glucose 183 235 H Medications Medications Current Medications Ondansetron HCl (Zofran Inj) 4 mg Q6H PRN IV NAUSEA AND/OR VOMITING; Start at 09:00 Acetaminophen (Tylenol Supp) 650 mg Q4H PRN [place] PAIN LEVEL 1-3 OR FEVER Last administered on 09/23/16 08:38; Admin Dose 650 MG; Start 09/21/16 at 09:00 Morphine Sulfate (morphine) 2 mg Q4H PRN IV PAIN LEVEL 7-10; Start 09/21/16 at 09:00 Pantoprazole (Protonix Iv) 40 mg DAILY@06 IV Last administered on 09/25/16 05: 59; Admin Dose 40 MG; Start 09/22/16 at 06:00 Lorazepam 1 mg 1 mg Q2H PRN IV Seizures; Start 09/21/16 at 09:30 Propofol (Diprivan) 100 ml @ 1.95 mls/hr Q12H IV ; Start 09/21/16 at 09:30 Amiodarone HCl (Cordarone) 200 mg DAILY PO Last administered on 09/25/16 08:26 ; Admin Dose 200 MG; Start 09/22/16 at 09:00 Digoxin (Digoxin) 0.125 mg DAILY PO Last administered on 09/25/16 08:27; Admin Dose 0.125 MG; Start 09/22/16 at 09:00 Losartan Potassium (Cozaar) 50 mg DAILY PO Last administered on 09/25/16 09:26 ; Admin Dose 50 MG; Start 09/22/16 at 09:00 Atorvastatin Calcium (Lipitor) 40 mg DAILY@21 PO Last administered on 21:25; Admin Dose 40 MG; Start 09/21/16 at 21:00 Insulin Aspart (Novolog Insulin Pen) NOVOLOG *MILD* ALGORITHM Q4H SC Last administered on 09/25/16 09:38; Admin Dose 3 UNIT; Start 09/21/16 at 10:00 Furosemide (Lasix) 40 mg DAILY IV Last administered on 09/25/16 08:26; Admin Dose 40 MG; Start 09/21/16 at 10:00 Miscellaneous Information 1 ea NOTE XX ; Start 09/21/16 at 10:00 Glucose (Glutose) 15 gm Q15M PRN PO DECREASED GLUCOSE; Start 09/21/16 at 10:00 Glucose (Glutose) 22.5 gm Q15M PRN PO DECREASED GLUCOSE; Start 09/21/16 at 10: 00 Dextrose (D50w Syringe) 25 ml Q15M PRN IV DECREASED GLUCOSE; Start 09/21/16 at 10:00 Dextrose (D50w Syringe) 50 ml Q15M PRN IV DECREASED GLUCOSE; Start 09/21/16 at 10:00 Glucagon (Glucagen) 1 mg Q15M PRN IM DECREASED GLUCOSE; Start 09/21/16 at 10:00 Glucose 15 gm 15 gm Q15M PRN BUCCAL DECREASED GLUCOSE; Start 09/21/16 at 10:00 Vancomycin HCl/ Sodium Chloride (Vancocin/NS) 250 ml @ 83.333 mls/ hr Q24H IVPB Last administered on 09/25/16 00:55; Admin Dose 83.333 MLS/HR; Start at 00:00 Metoprolol Tartrate (Lopressor) 50 mg BID NGT Last administered on 09/25/16 09 :27; Admin Dose 50 MG; Start 09/22/16 at 10:00 Ferrous Sulfate 300 mg 300 mg BID NGT Last administered on 09/25/16 08:24; Admin Dose 300 MG; Start 09/22/16 at 10:00 Sodium Chloride (NS) 1,000 ml @ 20 mls/hr Q24H IV Last administered on 10:39; Admin Dose 20 MLS/HR; Start 09/23/16 at 10:00 Insulin Glargine 8 unit 8 unit DAILY@20 SC Last administered on 09/24/16 14:12 ; Admin Dose 8 UNIT; Start 09/24/16 at 12:30 Levetiracetam 100 ml @ 400 mls/hr BID IVPB Last administered on 09/25/16 08: 26; Admin Dose 400 MLS/HR; Start 09/24/16 at 14:30 Potassium Phosphate/Sodium Chloride (K Phos (Mm)/NS) 260 ml @ 65 mls/hr ONCE ONCE IVPB ; Start 09/25/16 at 09:00; Stop 09/25/16 at 12:59 JAY LEONARDO September 25, 2016 09:50
--- NOTE | 2016-09-25 10:15 | RADRPT ---
PROCEDURE: CT Brain without contrast. CLINICAL INDICATION: Intracerebral hemorrhage TECHNIQUE: Routine CT scan of the brain was performed on a high resolution multi detector scanner without intravenous contrast. One or more of the following dose reduction techniques were used: Auto mated exposure control; Adjustment of the mA and/or kV according to patient size; Use of iterative r econstruction technique. CTDI = 43 mGy. DLP = 720 mGy-cm. COMPARISON: CT scan of the brain 09/22/2016 FINDINGS: Hemorrhage: 4.1 x 3.9 x 4.1 cm recent intraparenchymal hematoma within the right frontal lobe is unc hanged. Small subdural hematomas measuring up to 4 mm in thickness overlying both cerebral hemisphe res are unchanged. Minimal dorsal left temporal subarachnoid hemorrhage is unchanged. No new areas of hemorrhage are seen. Acute ischemic changes: No evidence of acute ischemic changes. Mass effect/Midline shift: Approximately 4 mm of midline shift of the septum pellucidum to the left is unchanged. Minimal effacement of the suprasellar cistern is unchanged in appearance. Parenchymal volume: Mild central parenchymal volume loss is evident. Ventricular system: Nearly concordant with degree of parenchymal volume. No evidence of acute hydro cephalous or ventricular entrapment. Chronic changes: Mild chronic-appearing microvascular ischemic changes of the supratentorial white m atter. Atherosclerotic calcifications of the cavernous portions of both internal carotid arteries ar e present. Extracranial soft tissues: Unremarkable. Calvarium: No fractures. Paranasal sinuses: Visualized paranasal sinuses are clear. Mastoid air cells: Visualized mastoid air cells are clear. IMPRESSION: No evidence of new intracranial hemorrhage. Unchanged appearance of left frontal intraparenchymal hematoma, bilateral cerebral convexities small subdural hematomas and small dorsal left temporal subarachnoid hemorrhage. Minimal midline shift t o the left of approximately 4 mm is unchanged. Minimal effacement of the suprasellar cistern is unc hanged. No evidence of new hydrocephalus or ventricular entrapment. RPTAT: AADD .Feroz Hamm MD, Date Time Electronically viewed and signed by .Feroz Hamm MD, on 09/25/2016 10:15 .B/
[2016-09-25] MEDS: SOD CHLORIDE 0.9% 1,000 ML IV SCH (10:38)
--- NOTE | 2016-09-25 10:49 | CONS ---
Date/Time of Note Date/Time of Note DATE: 09/25/16 TIME: 10:44 Assessment/Plan Assessment/Plan Chief Complaint/Hosp Course IMPRESSION: 1. Congestive heart failure exacerbation, systolic, acute on chronic, by recent echocardiogram in 07/2016 revealing ejection fraction of 25%. 2. Cardiomyopathy with decreased left ventricular ejection fraction, last ejection fraction approximately 25% by echocardiogram 07/2016. 3. History of automatic implantable cardioverter-defibrillator. 4. History of paroxysmal atrial fibrillation, previously on systemic anticoagulation. 5. Subdural hematomas with midline shift and vasogenic edema- no sig change by serial CT done this AM 6. Encephalopathy. 7. Hypertension. 8. Anemia. 9. Thrombocytopenia-some mild improvement 10.Hypernatremia Recc: -Tele -serial ecg's -Follow NRSG recomendations for hypertonic saline/hypoventilation/increased na levels -Follow MS closly -Continue BB/losartan -Continue amio/digoxin -Follow volume status closely Problems: Consultation Date/Type/Reason Admit Date/Time September 21, 2016 at 08:29 Initial Consult Date 09/21/16 Type of Consultation: Cardiology Reason for Consultation cardiomyopathy Referring Provider: LAINEY AGARWAL Exam/Review of Systems Vital Signs Vitals Vital Signs Date Time Temp Pulse Resp B/P Pulse Ox O2 Delivery O2 Flow Rate FiO2 09/25/16 09:16 80 18 98 30 09/25/16 09:00 133/60 Mechanical Ventilator 09/25/16 08:00 99.2 Intake and Output 09/24/16 09/24/16 09/25/16 15:00 23:00 07:00 Intake Total 580 ml 520 ml 650 ml Output Total 750 ml 410 ml 375 ml Balance -170 ml 110 ml 275 ml Exam Review of Systems: CONSTITUTIONAL: No fevers, chills. PULMONARY: intubated CARDIOVASCULAR: No chest pain/palpitations GASTROINTESTINAL: No nausea/vomiting. GENITOURINARY: No hematuria/dysuria. MUSCULOSKELETAL: No myagias/arthalgias. PSYCHIATRIC: The patient denies depression. NEUROLOGIC: Encephalopathic Constitutional: other (encephaloapthic) Psych: no complaints Head: normocephalic ENMT: mucosa pink and moist Neck: jvd (9 cm watr), supple Respiratory: diminished breath sounds (at bases/B) Cardiovascular: regular rate and rhythm Gastrointestinal: non-tender, soft Musculoskeletal: muscle tone (normal) Extremities: edema (none) Neurological: other (No focal deficits) Results Result Diagram: 09/25/16 0530 09/25/16 0530 Results 24 hrs Laboratory Tests Test 09/24/16 13:08 09/24/16 17:29 09/24/16 20:50 09/24/16 21:23 Bedside Glucose 228 H 198 197 Sodium Level 149 H Test 09/24/16 22:55 09/25/16 02:25 09/25/16 05:30 09/25/16 05:45 Vancomycin Level Trough 13.1 Bedside Glucose 194 183 White Blood Count 7.1 Red Blood Count 3.37 L Hemoglobin 9.4 L Hematocrit 31.4 L Mean Corpuscular Volume 93.2 Mean Corpuscular Hemoglobin 27.9 L Mean Corpuscular Hemoglobin Concent 29.9 L Red Cell Distribution Width 17.6 H Platelet Count 111 L Mean Platelet Volume 13.4 H Neutrophils % 84.1 H Lymphocytes % 8.6 L Monocytes % 6.6 Eosinophils % 0.0 Basophils % 0.0 Nucleated Red Blood Cells % 0.0 Neutrophils # 6.0 Lymphocytes # 0.6 L Monocytes # 0.5 Eosinophils # 0.0 Basophils # 0.0 Nucleated Red Blood Cells # 0.0 Sodium Level 152 H Potassium Level 3.1 L Chloride Level 118 H Carbon Dioxide Level 32 H Anion Gap 5 L Blood Urea Nitrogen 37 H Creatinine 0.98 Glucose Level 192 Calcium Level 8.4 Phosphorus Level 2.3 L Magnesium Level 2.4 Test 09/25/16 09:34 Bedside Glucose 235 H Medications Medications Current Medications Ondansetron HCl (Zofran Inj) 4 mg Q6H PRN IV NAUSEA AND/OR VOMITING; Start at 09:00 Acetaminophen (Tylenol Supp) 650 mg Q4H PRN [place] PAIN LEVEL 1-3 OR FEVER Last administered on 09/23/16 08:38; Admin Dose 650 MG; Start 09/21/16 at 09:00 Morphine Sulfate (morphine) 2 mg Q4H PRN IV PAIN LEVEL 7-10; Start 09/21/16 at 09:00 Pantoprazole (Protonix Iv) 40 mg DAILY@06 IV Last administered on 09/25/16 05: 59; Admin Dose 40 MG; Start 09/22/16 at 06:00 Lorazepam 1 mg 1 mg Q2H PRN IV Seizures; Start 09/21/16 at 09:30 Propofol (Diprivan) 100 ml @ 1.95 mls/hr Q12H IV ; Start 09/21/16 at 09:30 Amiodarone HCl (Cordarone) 200 mg DAILY PO Last administered on 09/25/16 08:26 ; Admin Dose 200 MG; Start 09/22/16 at 09:00 Digoxin (Digoxin) 0.125 mg DAILY PO Last administered on 09/25/16 08:27; Admin Dose 0.125 MG; Start 09/22/16 at 09:00 Losartan Potassium (Cozaar) 50 mg DAILY PO Last administered on 09/25/16 09:26 ; Admin Dose 50 MG; Start 09/22/16 at 09:00 Atorvastatin Calcium (Lipitor) 40 mg DAILY@21 PO Last administered on 21:25; Admin Dose 40 MG; Start 09/21/16 at 21:00 Insulin Aspart (Novolog Insulin Pen) NOVOLOG *MILD* ALGORITHM Q4H SC Last administered on 09/25/16 09:38; Admin Dose 3 UNIT; Start 09/21/16 at 10:00 Miscellaneous Information 1 ea NOTE XX ; Start 09/21/16 at 10:00 Glucose (Glutose) 15 gm Q15M PRN PO DECREASED GLUCOSE; Start 09/21/16 at 10:00 Glucose (Glutose) 22.5 gm Q15M PRN PO DECREASED GLUCOSE; Start 09/21/16 at 10: 00 Dextrose (D50w Syringe) 25 ml Q15M PRN IV DECREASED GLUCOSE; Start 09/21/16 at 10:00 Dextrose (D50w Syringe) 50 ml Q15M PRN IV DECREASED GLUCOSE; Start 09/21/16 at 10:00 Glucagon (Glucagen) 1 mg Q15M PRN IM DECREASED GLUCOSE; Start 09/21/16 at 10:00 Glucose 15 gm 15 gm Q15M PRN BUCCAL DECREASED GLUCOSE; Start 09/21/16 at 10:00 Vancomycin HCl/ Sodium Chloride (Vancocin/NS) 250 ml @ 83.333 mls/ hr Q24H IVPB Last administered on 09/25/16 00:55; Admin Dose 83.333 MLS/HR; Start at 00:00 Metoprolol Tartrate (Lopressor) 50 mg BID NGT Last administered on 09/25/16 09 :27; Admin Dose 50 MG; Start 09/22/16 at 10:00 Ferrous Sulfate 300 mg 300 mg BID NGT Last administered on 09/25/16 08:24; Admin Dose 300 MG; Start 09/22/16 at 10:00 Sodium Chloride (NS) 1,000 ml @ 20 mls/hr Q24H IV Last administered on 10:38; Admin Dose 20 MLS/HR; Start 09/23/16 at 10:00 Insulin Glargine 8 unit 8 unit DAILY@20 SC Last administered on 09/24/16 14:12 ; Admin Dose 8 UNIT; Start 09/24/16 at 12:30 Levetiracetam 100 ml @ 400 mls/hr BID IVPB Last administered on 09/25/16 08: 26; Admin Dose 400 MLS/HR; Start 09/24/16 at 14:30 Potassium Phosphate/Sodium Chloride (K Phos (Mm)/NS) 260 ml @ 65 mls/hr ONCE ONCE IVPB Last administered on 09/25/16 10:04; Admin Dose 65 MLS/HR; Start at 09:00; Stop 09/25/16 at 12:59 MATHEW AMADO September 25, 2016 10:49
--- NOTE | 2016-09-25 12:13 | PN ---
DATE: 09/25/2016 INFECTIOUS DISEASE PROGRESS NOTE SUBJECTIVE: No acute changes. The patient is intubated, lying comfortably in bed, afebrile. VITAL SIGNS: WBC today 7.1, H and H 9.4 and 31.4, platelets 111. Neutrophils 84.1, no bands. BUN 37, creatinine 0.98. INDWELLINGS: Endotracheal tube, NG tube, permanent pacemaker, Macedo catheter. ANTIMICROBIALS: The patient is on IV vancomycin. MICROBIOLOGY: Blood culture on September 21 grew strep. Repeat blood culture on September 23 negative. PHYSICAL EXAMINATION: GENERAL: This is a fragile, elderly woman who is intubated, in no distress. HEENT: Head atraumatic, normocephalic. Sclerae anicteric. Buccal mucosa dry. NECK: Supple, trachea midline. CHEST: Rise symmetrical. Breath sounds diminished to bases. HEART: S1, S2. ABDOMEN: Soft. Bowel sounds present. EXTREMITIES: Without cyanosis. ASSESSMENT: 1. Systemic inflammatory response syndrome. 2. Acute respiratory failure, possible pneumonia. 3. Acute intracranial hemorrhage with bilateral subdural hematoma. 4. Atrial fibrillation. 5. Diabetes. 6. Streptococcal bacteremia. PLAN: The patient is stable. She is being followed by multiple consultants. She is on appropriate antimicrobials. She is not allergic to anything. We actually can change her to IV Rocephin. We w ill send sputum for culture. Dictated By: ANGELINA GAMEZ YOUTH LEADER for ARMAND ALVARES/NTS Conf#: [id number] DID#: [id number]
[2016-09-25] MEDS: CEFTRIAXONE 1 GM/50 ML (PMX) 50 ML IVPB SCH (13:02)
--- NOTE | 2016-09-25 18:42 | QN ---
Documentation Comment No changes in patient exam- she remains obtunded localizing only. Keppra started yesterday. CT shows stable extraaxial and right frontal hematoma. May need cerebral angiogram if she improves neurologically but prognosis at present remains poor. DICK JACOBO MD September 25, 2016 18:42
[2016-09-25] MEDS: INSULIN GLARGINE [LANtus] 3 ML PEN SC SCH (20:37)
[2016-09-25] MEDS: ATORVASTATIN 40 MG TAB PO SCH (21:04)
[2016-09-26] VITALS (34 sets, daily range): BP systolic 97–150; BP diastolic 52–74; PULSE 80–82; RESP 17–18
[2016-09-26] MEDS: INSULIN ASPART [NOVOLOG] 3 ML PEN SC SCH ×6 (02:00→22:00)
[2016-09-26 06:02] LABS: ADD SCAN DIFF NO
[2016-09-26 06:06] LABS: ABNORMAL IP MESSAGE 1; EOSINOPHILS % 0.2 % (0.0-7.0); HEMATOCRIT 31.6 % (37.0-47.0); HEMOGLOBIN 9.7 g/dl (12.0-16.0); LYMPHOCYTES # 0.6 10^3/ul (0.8-2.9); LYMPHOCYTES % 10.2 % (15.0-51.0); MEAN CORPUSCULAR HEMOGLOBIN 28.7 pg (29.0-33.0); MEAN CORPUSCULAR HGB CONC 30.7 g/dl (32.0-37.0); MEAN CORPUSCULAR VOLUME 93.5 fl (82.0-101.0); MONOCYTE # 0.4 10^3/ul (0.3-0.9); MONOCYTES % 6.7 % (0.0-11.0); NEUTROPHIL # 4.8 10^3/ul (1.6-7.5); NEUTROPHILS % 82.4 % (39.0-77.0); PLATELET COUNT 94 10^3/UL (140-415); RED BLOOD COUNT 3.38 10^6/ul (4.20-5.40); RED CELL DISTRIBUTION WIDTH 17.1 % (11.5-14.5); WHITE BLOOD COUNT 5.8 10^3/ul (4.8-10.8)
[2016-09-26] MEDS: LEVOTHYROXINE 100 MCG TAB PO SCH (06:30)
[2016-09-26] MEDS: PANTOPRAZOLE 40 MG INJ IV SCH (06:31)
[2016-09-26 06:36] LABS: MAGNESIUM 2.3 mg/dl (1.7-2.5); PHOSPHORUS 3.2 mg/dl (2.5-4.9)
[2016-09-26 06:36] LABS: CALCIUM 8.1 mg/dl (8.4-10.2)
--- NOTE | 2016-09-26 07:23 | PN ---
Date/Time of Note Date/Time of Note DATE: 09/26/16 TIME: 07:19 Assessment/Plan VTE Prophylaxis VTE Prophylaxis Intervention: SCD's Lines/Catheters IV [facility]ter [facility] (from [facility] Peripheral IV Urinary Cath still in place: Yes Reason Cath still needed: other (indicate) Assessment/Plan Chief Complaint/Hosp Course 1. Intracranial bleeding including intraparenchymal hematoma and bilateral subdural hematomas with midline shift. Neurosurgery on the case. Continue ICP lowering measures including hyperventilation. The patient will be maintained on seizure precautions. No surgical interventions as of now. 2. Accelerated hypertension. Continue antihypertensives as per cardiology recommendations. 3. Atrial fibrillation. The patient's heart rate is currently controlled. The patient will be continued on amiodarone and digoxin. 4. Cardiomyopathy with ejection fraction of 30% with stage III and stage IV diastolic dysfunction. The patient will be continued on beta blockers and ARB' s. 5. Hypothyroidism. The patient will be continued on Synthroid. 6. Hyperlipidemia. Continue statins. 7. Type 2 diabetes mellitus. Continue SSI. Sugars running high. We will start the patient on Lantus insulin 30 8. Normocytic anemia. The patient has a history of iron deficiency. Continue iron supplements. 9. Thrombocytopenia. The patient will be monitored for any bleeding. Avoid any antiplatelet or anticoagulants. 10. Sepsis with underlying bacteremia. The patient was started on vancomycin. No evidence of any septic shock. Continue antibiotics as per infectious diseases. 11. Fluids, electrolytes, and nutrition. Tube feedings. 12. DVT prophylaxis. Bilateral sequential compression devices. 13. Gastrointestinal prophylaxis. Proton pump inhibitors. 14. Plan. Continue ICU monitoring. Continue ICP lowering measures including elevation of bed, hyperventilation, and keeping the sodium high. Replete potassium. Poor prognosis. Palliative Care has been consulted. Case discussed with . Critical care time: 35 minutes. Problems: Subjective 24 Hr Interval Summary Free Text/Dictation The patient remains afebrile. Exam/Review of Systems Vital Signs Vitals Vital Signs Date Time Temp Pulse Resp B/P Pulse Ox O2 Delivery O2 Flow Rate FiO2 09/26/16 05:48 80 18 98 30 09/26/16 04:00 98.8 104/57 Mechanical Ventilator Intake and Output 09/25/16 09/25/16 09/26/16 15:00 23:00 07:00 Intake Total 620 ml 550 ml 280 ml Output Total 1790 ml 335 ml 130 ml Balance -1170 ml 215 ml 150 ml Exam GENERAL: This is an elderly female patient lying in bed, orally intubated and mechanically ventilated. HEENT: Head normocephalic and atraumatic. Eyes: Anicteric sclerae. Conjunctivae clear. Pupils are slightly sure reactive bilaterally. ENT: Nasal septum is midline. Oral mucosa is dry. Orally intubated. NECK: Supple. No JVD noticed. RESPIRATORY: Bilaterally diminished breath sounds. No adventitious breath sounds heard. On AC mode ventilation. CARDIAC: Regular rate and rhythm. S1, S2 heard. Grade III/ systolic ejection murmur. ABDOMEN: Soft, scaphoid. Nontender. Bowel sounds hypoactive in all 4 quadrants. GENITOURINARY: The patient has a Macedo catheter in place. EXTREMITIES: No cyanosis, no clubbing, no edema. Peripheral pulses are palpable. NEUROLOGIC: The patient is unresponsive. Has some purposeful movement of the left upper extremity. Withdrawal to pain of bilateral lower extremities and right upper extremity. Results Result Diagram: 09/26/1651609/26/16516 Results 24 hrs Laboratory Tests Test 09/25/16 09:34 09/25/16 11:15 09/25/16 13:27 09/25/16 17:43 Bedside Glucose 235 H 207 200 Sodium Level 151 H Test 09/25/16 20:23 09/25/16 21:20 09/25/16 22:08 09/26/16 02:11 Bedside Glucose 191 181 159 Sodium Level 151 H Test 09/26/16 05:15 09/26/16 05:17 09/26/16 06:25 Phosphorus Level 3.2 Magnesium Level 2.3 White Blood Count 5.8 Red Blood Count 3.38 L Hemoglobin 9.7 L Hematocrit 31.6 L Mean Corpuscular Volume 93.5 Mean Corpuscular Hemoglobin 28.7 L Mean Corpuscular Hemoglobin Concent 30.7 L Red Cell Distribution Width 17.1 H Platelet Count 94 L Mean Platelet Volume Neutrophils % 82.4 H Lymphocytes % 10.2 L Monocytes % 6.7 Eosinophils % 0.2 Basophils % 0.0 Nucleated Red Blood Cells % 0.0 Neutrophils # 4.8 Lymphocytes # 0.6 L Monocytes # 0.4 Eosinophils # 0.0 Basophils # 0.0 Nucleated Red Blood Cells # 0.0 Sodium Level 155 H Potassium Level 3.0 L Chloride Level 114 H Carbon Dioxide Level 31 Anion Gap 13 # Blood Urea Nitrogen 42 H Creatinine 1.00 Glucose Level 201 Calcium Level 8.1 L Bedside Glucose 203 Medications Medications Current Medications Ondansetron HCl (Zofran Inj) 4 mg Q6H PRN IV NAUSEA AND/OR VOMITING; Start at 09:00 Acetaminophen (Tylenol Supp) 650 mg Q4H PRN [place] PAIN LEVEL 1-3 OR FEVER Last administered on 09/23/16 08:38; Admin Dose 650 MG; Start 09/21/16 at 09:00 Morphine Sulfate (morphine) 2 mg Q4H PRN IV PAIN LEVEL 7-10; Start 09/21/16 at 09:00 Pantoprazole (Protonix Iv) 40 mg DAILY@06 IV Last administered on 09/26/16 06: 31; Admin Dose 40 MG; Start 09/22/16 at 06:00 Lorazepam 1 mg 1 mg Q2H PRN IV Seizures; Start 09/21/16 at 09:30 Propofol (Diprivan) 100 ml @ 1.95 mls/hr Q12H IV ; Start 09/21/16 at 09:30 Amiodarone HCl (Cordarone) 200 mg DAILY PO Last administered on 09/25/16 08:26 ; Admin Dose 200 MG; Start 09/22/16 at 09:00 Digoxin (Digoxin) 0.125 mg DAILY PO Last administered on 09/25/16 08:27; Admin Dose 0.125 MG; Start 09/22/16 at 09:00 Losartan Potassium (Cozaar) 50 mg DAILY PO Last administered on 09/25/16 09:26 ; Admin Dose 50 MG; Start 09/22/16 at 09:00 Atorvastatin Calcium (Lipitor) 40 mg DAILY@21 PO Last administered on 21:04; Admin Dose 40 MG; Start 09/21/16 at 21:00 Insulin Aspart (Novolog Insulin Pen) NOVOLOG *MILD* ALGORITHM Q4H SC Last administered on 09/26/16 06:35; Admin Dose 2 UNIT; Start 09/21/16 at 10:00 Miscellaneous Information 1 ea NOTE XX ; Start 09/21/16 at 10:00 Glucose (Glutose) 15 gm Q15M PRN PO DECREASED GLUCOSE; Start 09/21/16 at 10:00 Glucose (Glutose) 22.5 gm Q15M PRN PO DECREASED GLUCOSE; Start 09/21/16 at 10: 00 Dextrose (D50w Syringe) 25 ml Q15M PRN IV DECREASED GLUCOSE; Start 09/21/16 at 10:00 Dextrose (D50w Syringe) 50 ml Q15M PRN IV DECREASED GLUCOSE; Start 09/21/16 at 10:00 Glucagon (Glucagen) 1 mg Q15M PRN IM DECREASED GLUCOSE; Start 09/21/16 at 10:00 Glucose (Glutose) 15 gm Q15M PRN BUCCAL DECREASED GLUCOSE; Start 09/21/16 at 10 :00 Metoprolol Tartrate (Lopressor) 50 mg BID NGT Last administered on 09/25/16 21 :08; Admin Dose 50 MG; Start 09/22/16 at 10:00 Ferrous Sulfate 300 mg 300 mg BID NGT Last administered on 09/25/16 21:04; Admin Dose 300 MG; Start 09/22/16 at 10:00 Sodium Chloride (NS) 1,000 ml @ 20 mls/hr Q24H IV Last administered on 10:38; Admin Dose 20 MLS/HR; Start 09/23/16 at 10:00 Insulin Glargine 8 unit 8 unit DAILY@20 SC Last administered on 09/25/16 20:37 ; Admin Dose 8 UNIT; Start 09/24/16 at 12:30 Levetiracetam 100 ml @ 400 mls/hr BID IVPB Last administered on 09/25/16 21: 04; Admin Dose 400 MLS/HR; Start 09/24/16 at 14:30 Ceftriaxone Sodium (Rocephin) 50 ml @ 100 mls/hr Q24H IVPB Last administered on 09/25/16 13:02; Admin Dose 100 MLS/HR; Start 09/25/16 at 12:00 MARTY HOLLAND NP September 26, 2016 07:22
[2016-09-26] MEDS: PROPOFOL 100 ML IV SCH (08:39)
[2016-09-26] MEDS: POTASSIUM CHLORIDE 250 ML IVPB SCH ×2 (08:47→12:54)
[2016-09-26] MEDS: SOD CHLORIDE 0.9% 1,000 ML IV SCH (08:47)
[2016-09-26] MEDS: FERROUS SULFATE 60 MG/ML 5ML CUP NGT SCH ×2 (08:48→21:23)
[2016-09-26] MEDS: AMIODARONE 200 MG TAB PO SCH (08:52)
[2016-09-26] MEDS: DIGOXIN 0.125 MG TAB PO SCH (08:53)
[2016-09-26] MEDS: METOPROLOL 50 MG TAB NGT SCH ×2 (08:53→22:21)
[2016-09-26] MEDS: LOSARTAN 50 MG TAB PO SCH (08:53)
[2016-09-26] MEDS: LEVETIRACETAM 500 MG (PMX) 100 ML IVPB SCH ×2 (09:11→21:23)
--- NOTE | 2016-09-26 10:52 | CONS ---
Date/Time of Note Date/Time of Note DATE: 09/26/16 TIME: 10:50 Consult Date/Type/Reason Admit Date/Time September 21, 2016 at 08:29 Initial Consult Date 09/21/16 Type of Consultation: Pulmonary ICU Ordering Provider: LAINEY AGARWAL Subjective Patient remains on mechanical ventilation Not opening eyes or following commands Continues nasogastric tube feeding Objective Vital Signs Date Time Temp Pulse Resp B/P Pulse Ox O2 Delivery O2 Flow Rate FiO2 09/26/16 09:00 80 18 131/68 99 Mechanical Ventilator 09/26/16 08:00 30 09/26/16 08:00 98.7 Intake and Output 09/25/16 09/25/16 09/26/16 15:00 23:00 07:00 Intake Total 620 ml 550 ml 560 ml Output Total 1790 ml 335 ml 235 ml Balance -1170 ml 215 ml 325 ml Exam PHYSICAL EXAMINATION: GENERAL: Elderly-appearing lady, comfortable at rest, no acute distress. Intubated on mechanical ventilation VITAL SIGNS: As above HEENT: Dry mucous membranes. Pupils are sluggish, minimally reactive. CARDIAC: S1, S2, no added sounds or murmurs. CHEST: Diminished air entry bilaterally. ABDOMEN: Soft, nontender. No guarding or rebound. EXTREMITIES: No cyanosis, clubbing, edema. NEUROLOGIC: Right hemiplegia Results/Medications Result Diagram: 09/26/1651609/26/16 0917 Results 24 hrs Laboratory Tests Test 09/25/16 11:15 09/25/16 13:27 09/25/16 17:43 09/25/16 20:23 Sodium Level 151 H Bedside Glucose 207 200 191 Test 09/25/16 21:20 09/25/16 22:08 09/26/16 02:11 09/26/16 05:15 Sodium Level 151 H Bedside Glucose 181 159 Phosphorus Level 3.2 Magnesium Level 2.3 Test 09/26/16 05:17 09/26/16 06:25 09/26/16 09:14 09/26/16 09:17 White Blood Count 5.8 Red Blood Count 3.38 L Hemoglobin 9.7 L Hematocrit 31.6 L Mean Corpuscular Volume 93.5 Mean Corpuscular Hemoglobin 28.7 L Mean Corpuscular Hemoglobin Concent 30.7 L Red Cell Distribution Width 17.1 H Platelet Count 94 L Mean Platelet Volume Neutrophils % 82.4 H Lymphocytes % 10.2 L Monocytes % 6.7 Eosinophils % 0.2 Basophils % 0.0 Nucleated Red Blood Cells % 0.0 Neutrophils # 4.8 Lymphocytes # 0.6 L Monocytes # 0.4 Eosinophils # 0.0 Basophils # 0.0 Nucleated Red Blood Cells # 0.0 Sodium Level 155 H 151 H Potassium Level 3.0 L Chloride Level 114 H Carbon Dioxide Level 31 Anion Gap 13 # Blood Urea Nitrogen 42 H Creatinine 1.00 Glucose Level 201 Calcium Level 8.1 L Bedside Glucose 203 224 H Medications Current Medications Ondansetron HCl (Zofran Inj) 4 mg Q6H PRN IV NAUSEA AND/OR VOMITING; Start at 09:00 Acetaminophen (Tylenol Supp) 650 mg Q4H PRN [place] PAIN LEVEL 1-3 OR FEVER Last administered on 09/23/16 08:38; Admin Dose 650 MG; Start 09/21/16 at 09:00 Morphine Sulfate (morphine) 2 mg Q4H PRN IV PAIN LEVEL 7-10; Start 09/21/16 at 09:00 Pantoprazole (Protonix Iv) 40 mg DAILY@06 IV Last administered on 09/26/16 06: 31; Admin Dose 40 MG; Start 09/22/16 at 06:00 Lorazepam 1 mg 1 mg Q2H PRN IV Seizures; Start 09/21/16 at 09:30 Propofol (Diprivan) 100 ml @ 1.95 mls/hr Q12H IV ; Start 09/21/16 at 09:30 Amiodarone HCl (Cordarone) 200 mg DAILY PO Last administered on 09/26/16 08:52 ; Admin Dose 200 MG; Start 09/22/16 at 09:00 Digoxin (Digoxin) 0.125 mg DAILY PO Last administered on 09/26/16 08:53; Admin Dose 0.125 MG; Start 09/22/16 at 09:00 Losartan Potassium (Cozaar) 50 mg DAILY PO Last administered on 09/26/16 08:53 ; Admin Dose 50 MG; Start 09/22/16 at 09:00 Atorvastatin Calcium (Lipitor) 40 mg DAILY@21 PO Last administered on 21:04; Admin Dose 40 MG; Start 09/21/16 at 21:00 Insulin Aspart (Novolog Insulin Pen) NOVOLOG *MILD* ALGORITHM Q4H SC Last administered on 09/26/16 09:15; Admin Dose 3 UNIT; Start 09/21/16 at 10:00 Miscellaneous Information 1 ea NOTE XX ; Start 09/21/16 at 10:00 Glucose (Glutose) 15 gm Q15M PRN PO DECREASED GLUCOSE; Start 09/21/16 at 10:00 Glucose (Glutose) 22.5 gm Q15M PRN PO DECREASED GLUCOSE; Start 09/21/16 at 10: 00 Dextrose (D50w Syringe) 25 ml Q15M PRN IV DECREASED GLUCOSE; Start 09/21/16 at 10:00 Dextrose (D50w Syringe) 50 ml Q15M PRN IV DECREASED GLUCOSE; Start 09/21/16 at 10:00 Glucagon (Glucagen) 1 mg Q15M PRN IM DECREASED GLUCOSE; Start 09/21/16 at 10:00 Glucose (Glutose) 15 gm Q15M PRN BUCCAL DECREASED GLUCOSE; Start 09/21/16 at 10 :00 Metoprolol Tartrate (Lopressor) 50 mg BID NGT Last administered on 09/26/16 08 :53; Admin Dose 50 MG; Start 09/22/16 at 10:00 Ferrous Sulfate 300 mg 300 mg BID NGT Last administered on 09/26/16 08:48; Admin Dose 300 MG; Start 09/22/16 at 10:00 Sodium Chloride 1,000 ml @ 20 mls/hr Q24H IV Last administered on 09/26/16 08 :47; Admin Dose 20 MLS/HR; Start 09/23/16 at 10:00 Levetiracetam 100 ml @ 400 mls/hr BID IVPB Last administered on 09/26/16 09: 11; Admin Dose 400 MLS/HR; Start 09/24/16 at 14:30 Ceftriaxone Sodium 50 ml @ 100 mls/hr Q24H IVPB Last administered on 13:02; Admin Dose 100 MLS/HR; Start 09/25/16 at 12:00 Potassium Chloride (KCl 40 MEQ/250 ML NS) 250 ml @ 62.5 mls/hr Q4H IVPB Last administered on 09/26/16 08:47; Admin Dose 62.5 MLS/HR; Start 09/26/16 at 07:30 ; Stop 09/26/16 at 15:29 Insulin Glargine (Lantus) 10 unit DAILY@20 SC ; Start 09/26/16 at 20:00 Assessment/Plan Chief Complaint/Hosp Course IMPRESSION: 1. Acute intracerebral bleed with midline shift. Managed conservatively to high risk for neurosurgical intervention 2. History of anticoagulation with Eliquis for atrial fibrillation. 3. Pacemaker placement. 4. Recent non-ST elevation myocardial infarction. 5. Hypernatremia PLAN: 1. Continue mechanical ventilation for hypoxemic respiratory failure and airway protection. 2. Neurosurgical recommendations. Currently not neurosurgical candidate 3. Blood pressure management. 4. DVT and GI prophylaxis. 5. Start tube feeding 6. Increase free water flushes Disposition Overall very poor prognosis will have palliative care input Problems: MIKAYLA PISANO MD, [facility] September 26, 2016 10:52
[2016-09-26] MEDS: CEFTRIAXONE 1 GM/50 ML (PMX) 50 ML IVPB SCH (11:40)
--- NOTE | 2016-09-26 12:33 | CONS ---
Date/Time of Note Date/Time of Note DATE: 09/26/16 TIME: 12:31 Assessment/Plan Assessment/Plan Additional Assessment/Plan 1. Congestive heart failure exacerbation, systolic, acute on chronic, by recent echocardiogram in 07/2016 revealing ejection fraction of 25%- now critically ill, ICD in place. 2. Cardiomyopathy with decreased left ventricular ejection fraction, last ejection fraction approximately 25% by echocardiogram 07/2016. 3. History of automatic implantable cardioverter-defibrillator - no VT/Vf noted. 4. History of paroxysmal atrial fibrillation, previously on systemic anticoagulation. 5. Subdural hematomas with midline shift and vasogenic edema- no sig change by serial CT done this AM 6. Encephalopathy- acute on chronic. 7. Hypertension. 8. Anemia. 9. Thrombocytopenia-some mild improvement - no active bleed now. 10.Hypernatremia Consultation Date/Type/Reason Admit Date/Time September 21, 2016 at 08:29 Initial Consult Date 09/21/16 Type of Consultation: Pulmonary ICU Referring Provider: LAINEY AGARWAL 24 HR Interval Summary Free Text/Dictation No acute change - con't resp Rx - keep euvolemic. ROS: No fever, no chills, no nausea, no vomiting, no diarrhea/constipation No recent weight changes No chest pain, no PND, no orthopnea No dizziness, blurred vision No thirst, no heat or cold intolerance (per nurse) Exam/Review of Systems Vital Signs Vitals Vital Signs Date Time Temp Pulse Resp B/P Pulse Ox O2 Delivery O2 Flow Rate FiO2 09/26/16 11:00 98.5 80 18 148/73 99 Mechanical Ventilator 09/26/16 08:00 30 Intake and Output 09/25/16 09/25/16 09/26/16 15:00 23:00 07:00 Intake Total 620 ml 550 ml 560 ml Output Total 1790 ml 335 ml 235 ml Balance -1170 ml 215 ml 325 ml Exam General: WN/WD/NAD, AOx 0 HEENT: Unicetric/atraumatic/EOMI (does not follow commands) NECK: JVD elevated, no thyromegaly, intubated Lymph: no lymphadenopathy HEART: regular with no S3, II/ systolic murmur at apex LUNGS: Coarse sounds ABD: soft, NT, ND, +BS : Intact Neuro: non focal SKIN: chronic changes EXT: trace edema Results Result Diagram: 09/26/16 0517 09/26/16 0917 Results 24 hrs Laboratory Tests Test 09/25/16 13:27 09/25/16 17:43 09/25/16 20:23 09/25/16 21:20 Bedside Glucose 207 200 191 Sodium Level 151 H Test 09/25/16 22:08 09/26/16 02:11 09/26/16 05:15 09/26/16 05:17 Bedside Glucose 181 159 Phosphorus Level 3.2 Magnesium Level 2.3 White Blood Count 5.8 Red Blood Count 3.38 L Hemoglobin 9.7 L Hematocrit 31.6 L Mean Corpuscular Volume 93.5 Mean Corpuscular Hemoglobin 28.7 L Mean Corpuscular Hemoglobin Concent 30.7 L Red Cell Distribution Width 17.1 H Platelet Count 94 L Mean Platelet Volume Neutrophils % 82.4 H Lymphocytes % 10.2 L Monocytes % 6.7 Eosinophils % 0.2 Basophils % 0.0 Nucleated Red Blood Cells % 0.0 Neutrophils # 4.8 Lymphocytes # 0.6 L Monocytes # 0.4 Eosinophils # 0.0 Basophils # 0.0 Nucleated Red Blood Cells # 0.0 Sodium Level 155 H Potassium Level 3.0 L Chloride Level 114 H Carbon Dioxide Level 31 Anion Gap 13 # Blood Urea Nitrogen 42 H Creatinine 1.00 Glucose Level 201 Calcium Level 8.1 L Test 09/26/16 06:25 09/26/16 09:14 09/26/16 09:17 Bedside Glucose 203 224 H Sodium Level 151 H Medications Medications Current Medications Ondansetron HCl (Zofran Inj) 4 mg Q6H PRN IV NAUSEA AND/OR VOMITING; Start at 09:00 Acetaminophen (Tylenol Supp) 650 mg Q4H PRN [place] PAIN LEVEL 1-3 OR FEVER Last administered on 09/23/16 08:38; Admin Dose 650 MG; Start 09/21/16 at 09:00 Morphine Sulfate (morphine) 2 mg Q4H PRN IV PAIN LEVEL 7-10; Start 09/21/16 at 09:00 Pantoprazole (Protonix Iv) 40 mg DAILY@06 IV Last administered on 09/26/16 06: 31; Admin Dose 40 MG; Start 09/22/16 at 06:00 Lorazepam 1 mg 1 mg Q2H PRN IV Seizures; Start 09/21/16 at 09:30 Propofol (Diprivan) 100 ml @ 1.95 mls/hr Q12H IV ; Start 09/21/16 at 09:30 Amiodarone HCl (Cordarone) 200 mg DAILY PO Last administered on 09/26/16 08:52 ; Admin Dose 200 MG; Start 09/22/16 at 09:00 Digoxin (Digoxin) 0.125 mg DAILY PO Last administered on 09/26/16 08:53; Admin Dose 0.125 MG; Start 09/22/16 at 09:00 Losartan Potassium (Cozaar) 50 mg DAILY PO Last administered on 09/26/16 08:53 ; Admin Dose 50 MG; Start 09/22/16 at 09:00 Atorvastatin Calcium (Lipitor) 40 mg DAILY@21 PO Last administered on 21:04; Admin Dose 40 MG; Start 09/21/16 at 21:00 Insulin Aspart (Novolog Insulin Pen) NOVOLOG *MILD* ALGORITHM Q4H SC Last administered on 09/26/16 09:15; Admin Dose 3 UNIT; Start 09/21/16 at 10:00 Miscellaneous Information 1 ea NOTE XX ; Start 09/21/16 at 10:00 Glucose (Glutose) 15 gm Q15M PRN PO DECREASED GLUCOSE; Start 09/21/16 at 10:00 Glucose (Glutose) 22.5 gm Q15M PRN PO DECREASED GLUCOSE; Start 09/21/16 at 10: 00 Dextrose (D50w Syringe) 25 ml Q15M PRN IV DECREASED GLUCOSE; Start 09/21/16 at 10:00 Dextrose (D50w Syringe) 50 ml Q15M PRN IV DECREASED GLUCOSE; Start 09/21/16 at 10:00 Glucagon (Glucagen) 1 mg Q15M PRN IM DECREASED GLUCOSE; Start 09/21/16 at 10:00 Glucose (Glutose) 15 gm Q15M PRN BUCCAL DECREASED GLUCOSE; Start 09/21/16 at 10 :00 Metoprolol Tartrate (Lopressor) 50 mg BID NGT Last administered on 09/26/16 08 :53; Admin Dose 50 MG; Start 09/22/16 at 10:00 Ferrous Sulfate 300 mg 300 mg BID NGT Last administered on 09/26/16 08:48; Admin Dose 300 MG; Start 09/22/16 at 10:00 Sodium Chloride 1,000 ml @ 20 mls/hr Q24H IV Last administered on 09/26/16 08 :47; Admin Dose 20 MLS/HR; Start 09/23/16 at 10:00 Levetiracetam 100 ml @ 400 mls/hr BID IVPB Last administered on 09/26/16 09: 11; Admin Dose 400 MLS/HR; Start 09/24/16 at 14:30 Ceftriaxone Sodium 50 ml @ 100 mls/hr Q24H IVPB Last administered on 11:40; Admin Dose 100 MLS/HR; Start 09/25/16 at 12:00 Potassium Chloride (KCl 40 MEQ/250 ML NS) 250 ml @ 62.5 mls/hr Q4H IVPB Last administered on 09/26/16 08:47; Admin Dose 62.5 MLS/HR; Start 09/26/16 at 07:30 ; Stop 09/26/16 at 15:29 Insulin Glargine (Lantus) 10 unit DAILY@20 SC ; Start 09/26/16 at 20:00 MILAGROS PRESSLEY MD September 26, 2016 12:33
--- NOTE | 2016-09-26 13:31 | CONS ---
Date/Time of Note Date/Time of Note DATE: 09/26/16 TIME: 13:25 Assessment/Plan Assessment/Plan Problems: (1) Cerebral hemorrhage Status: Acute Comment: Stable neurologically. EEG done yesterday - no results available and acc to RN results not back yet. Continue support. Na+ is 151 - from neurological perspective, this is close to ideal. Continue with isotonic solutions (obviously no hypertonic saline needed now). No free water or hypotonic IVs. Will order cerebral angiogram to better assess for vascular anomaly. If family decides less aggressive care, then this can be canceled. However, even treatment decisions such as use of anticoagulation in the future depend upon this assessment. Consultation Date/Type/Reason Admit Date/Time September 21, 2016 at 08:29 Initial Consult Date 09/21/16 Type of Consultation: Neurosurgery Referring Provider: LAINEY AGARWAL 24 HR Interval Summary Free Text/Dictation no family at bedside today Subjective hx not possible: pt non-verbal Exam/Review of Systems Vital Signs Vitals Vital Signs Date Time Temp Pulse Resp B/P Pulse Ox O2 Delivery O2 Flow Rate FiO2 09/26/16 12:00 80 09/26/16 11:00 98.5 18 148/73 99 Mechanical Ventilator 09/26/16 08:00 30 Intake and Output 09/25/16 09/25/16 09/26/16 14:59 22:59 06:59 Intake Total 570 ml 530 ml 560 ml Output Total 1640 ml 445 ml 255 ml Balance -1070 ml 85 ml 305 ml Exam ENMT: intubated Neurological: other (pupils reactive to light 4 to 3 bilat; corneals present bilat; cough present; clearly localized with LUE; weak flexion with RUE; some spontaneous movement LUE) Results I reviewed CT from yesterday - no change from last CT; improved from initial CT Result Diagram: 09/26/16 0517 09/26/16 0917 Results 24 hrs Laboratory Tests Test 09/25/16 13:27 09/25/16 17:43 09/25/16 20:23 09/25/16 21:20 Bedside Glucose 207 200 191 Sodium Level 151 H Test 09/25/16 22:08 09/26/16 02:11 09/26/16 05:15 09/26/16 05:17 Bedside Glucose 181 159 Phosphorus Level 3.2 Magnesium Level 2.3 White Blood Count 5.8 Red Blood Count 3.38 L Hemoglobin 9.7 L Hematocrit 31.6 L Mean Corpuscular Volume 93.5 Mean Corpuscular Hemoglobin 28.7 L Mean Corpuscular Hemoglobin Concent 30.7 L Red Cell Distribution Width 17.1 H Platelet Count 94 L Mean Platelet Volume Neutrophils % 82.4 H Lymphocytes % 10.2 L Monocytes % 6.7 Eosinophils % 0.2 Basophils % 0.0 Nucleated Red Blood Cells % 0.0 Neutrophils # 4.8 Lymphocytes # 0.6 L Monocytes # 0.4 Eosinophils # 0.0 Basophils # 0.0 Nucleated Red Blood Cells # 0.0 Sodium Level 155 H Potassium Level 3.0 L Chloride Level 114 H Carbon Dioxide Level 31 Anion Gap 13 # Blood Urea Nitrogen 42 H Creatinine 1.00 Glucose Level 201 Calcium Level 8.1 L Test 09/26/16 06:25 09/26/16 09:14 09/26/16 09:17 09/26/16 12:57 Bedside Glucose 203 224 H 197 Sodium Level 151 H Medications Medications Current Medications Ondansetron HCl (Zofran Inj) 4 mg Q6H PRN IV NAUSEA AND/OR VOMITING; Start at 09:00 Acetaminophen (Tylenol Supp) 650 mg Q4H PRN [place] PAIN LEVEL 1-3 OR FEVER Last administered on 09/23/16 08:38; Admin Dose 650 MG; Start 09/21/16 at 09:00 Morphine Sulfate (morphine) 2 mg Q4H PRN IV PAIN LEVEL 7-10; Start 09/21/16 at 09:00 Pantoprazole (Protonix Iv) 40 mg DAILY@06 IV Last administered on 09/26/16 06: 31; Admin Dose 40 MG; Start 09/22/16 at 06:00 Lorazepam 1 mg 1 mg Q2H PRN IV Seizures; Start 09/21/16 at 09:30 Propofol (Diprivan) 100 ml @ 1.95 mls/hr Q12H IV ; Start 09/21/16 at 09:30 Amiodarone HCl (Cordarone) 200 mg DAILY PO Last administered on 09/26/16 08:52 ; Admin Dose 200 MG; Start 09/22/16 at 09:00 Digoxin (Digoxin) 0.125 mg DAILY PO Last administered on 09/26/16 08:53; Admin Dose 0.125 MG; Start 09/22/16 at 09:00 Losartan Potassium (Cozaar) 50 mg DAILY PO Last administered on 09/26/16 08:53 ; Admin Dose 50 MG; Start 09/22/16 at 09:00 Atorvastatin Calcium (Lipitor) 40 mg DAILY@21 PO Last administered on 21:04; Admin Dose 40 MG; Start 09/21/16 at 21:00 Insulin Aspart (Novolog Insulin Pen) NOVOLOG *MILD* ALGORITHM Q4H SC Last administered on 09/26/16 12:59; Admin Dose 2 UNIT; Start 09/21/16 at 10:00 Miscellaneous Information 1 ea NOTE XX ; Start 09/21/16 at 10:00 Glucose (Glutose) 15 gm Q15M PRN PO DECREASED GLUCOSE; Start 09/21/16 at 10:00 Glucose (Glutose) 22.5 gm Q15M PRN PO DECREASED GLUCOSE; Start 09/21/16 at 10: 00 Dextrose (D50w Syringe) 25 ml Q15M PRN IV DECREASED GLUCOSE; Start 09/21/16 at 10:00 Dextrose (D50w Syringe) 50 ml Q15M PRN IV DECREASED GLUCOSE; Start 09/21/16 at 10:00 Glucagon (Glucagen) 1 mg Q15M PRN IM DECREASED GLUCOSE; Start 09/21/16 at 10:00 Glucose (Glutose) 15 gm Q15M PRN BUCCAL DECREASED GLUCOSE; Start 09/21/16 at 10 :00 Metoprolol Tartrate (Lopressor) 50 mg BID NGT Last administered on 09/26/16 08 :53; Admin Dose 50 MG; Start 09/22/16 at 10:00 Ferrous Sulfate 300 mg 300 mg BID NGT Last administered on 09/26/16 08:48; Admin Dose 300 MG; Start 09/22/16 at 10:00 Sodium Chloride 1,000 ml @ 20 mls/hr Q24H IV Last administered on 09/26/16 08 :47; Admin Dose 20 MLS/HR; Start 09/23/16 at 10:00 Levetiracetam 100 ml @ 400 mls/hr BID IVPB Last administered on 09/26/16 09: 11; Admin Dose 400 MLS/HR; Start 09/24/16 at 14:30 Ceftriaxone Sodium 50 ml @ 100 mls/hr Q24H IVPB Last administered on 11:40; Admin Dose 100 MLS/HR; Start 09/25/16 at 12:00 Potassium Chloride (KCl 40 MEQ/250 ML NS) 250 ml @ 62.5 mls/hr Q4H IVPB Last administered on 09/26/16 12:54; Admin Dose 62.5 MLS/HR; Start 09/26/16 at 07:30 ; Stop 09/26/16 at 15:29 Insulin Glargine (Lantus) 10 unit DAILY@20 SC ; Start 09/26/16 at 20:00 MAGALY DUNLAP MD September 26, 2016 13:31
--- NOTE | 2016-09-26 19:00 | PN ---
DATE: 09/26/2016 SUBJECTIVE: No acute changes. The patient remains intubated, in no distress. No fevers. VITAL SIGNS: Temperature 98.5, pulse 80, respirations 18, blood pressure 148/73, saturation 99% on vent. WBC 5.8, H and H 9.7 and 31.6, platelet count 94, neutrophils 82.4, BUN 42, creatinine 1.0. MICROBIOLOGY: Blood culture on admission grew strep group D, not enterococcus. Repeat blood cultur es are negative. INDWELLINGS: Endotracheal tube, NG tube, [place], permanent pacemaker. ANTIMICROBIALS: Rocephin, status post vancomycin. PHYSICAL EXAMINATION: GENERAL: Fragile, elderly woman in no distress. HEENT: Head atraumatic, normocephalic. Sclerae anicteric. Buccal mucosa dry. NECK: Supple, trachea midline. CHEST: Rise symmetrical. Breath sounds diminished to bases. HEART: S1, S2. ABDOMEN: Soft, bowel tones present. EXTREMITIES: Without cyanosis. ASSESSMENT: 1. Acute intracranial hemorrhage. 2. Streptococcal bacteremia. 3. Chronic respiratory failure. 4. Diabetes. 5. Atrial fibrillation. 6. Encephalopathy secondary to #1. PLAN: The patient remains stable hemodynamically, covered with appropriate antimicrobials. Neurosu rgery on case. Prognosis remains poor. Dictated By: ANGELINA GAMEZ SOLAR THERMAL TECHNICIAN for ARMAND ALVARES/NTS Conf#: [id number] DID#: [id number]
[2016-09-26] MEDS: INSULIN GLARGINE [LANtus] 3 ML PEN SC SCH (20:24)
[2016-09-26] MEDS: ATORVASTATIN 40 MG TAB PO SCH (21:23)
--- NOTE | 2016-09-26 22:08 | SP ---
DATE OF PROCEDURE: 09/25/2016 PROCEDURE: Electroencephalogram. DESCRIPTION OF PROCEDURE: Routine EEG was recorded digitally. [id number] and [id number] madeline ages were recorded and reviewed. All impedances were measured and recorded. Cap electrodes were pl aced in accordance with International 10-20 system of electrode placement. INDICATION: The patient is a 76-year-old lady with subdural hematomas, midline shift, encephalopath y, intubated but responsive to pain. She is on Keppra along with other medications. FINDINGS: Symmetrically distributed background activity was seen throughout the recording ranging i n frequency predominantly between 4 to 6 cycles per second. At times, background gets slightly slow er, 2 to 4 cycles per second, and at times slightly faster up to 8 cycles per second. Intermittent, not rhythmical sharp waves, usually bilateral with triphasic morphology and anterior to posterior l ag were seen. No definite epileptiform transients were seen. No signs of ongoing electrographic se izures or lateralized slowing. IMPRESSION: Abnormal study secondary to background slowing and presence of triphasic waves. All re flect encephalopathy, likely toxic metabolic in etiology. Dictated By: MEENA RANDOLPH/JARRELL Conf#: [id number] DID#: [id number]
[2016-09-27] VITALS (35 sets, daily range): BP systolic 99–141; BP diastolic 50–71; PULSE 79–88; RESP 17–19
[2016-09-27] MEDS: INSULIN ASPART [NOVOLOG] 3 ML PEN SC SCH ×3 (02:31→08:47)
[2016-09-27] MEDS: LEVOTHYROXINE 100 MCG TAB PO SCH (06:18)
[2016-09-27] MEDS: PANTOPRAZOLE 40 MG INJ IV SCH (06:18)
[2016-09-27 06:23] LABS: ADD SCAN DIFF NO
[2016-09-27 06:30] LABS: ABNORMAL IP MESSAGE 1; EOSINOPHILS % 0.2 % (0.0-7.0); HEMATOCRIT 31.3 % (37.0-47.0); HEMOGLOBIN 9.1 g/dl (12.0-16.0); LYMPHOCYTES # 0.6 10^3/ul (0.8-2.9); LYMPHOCYTES % 10.3 % (15.0-51.0); MEAN CORPUSCULAR HEMOGLOBIN 27.7 pg (29.0-33.0); MEAN CORPUSCULAR HGB CONC 29.1 g/dl (32.0-37.0); MEAN CORPUSCULAR VOLUME 95.1 fl (82.0-101.0); MEAN PLATELET VOLUME 13.9 fl (7.4-10.4); MONOCYTE # 0.4 10^3/ul (0.3-0.9); MONOCYTES % 7.5 % (0.0-11.0); NEUTROPHIL # 4.6 10^3/ul (1.6-7.5); NEUTROPHILS % 81.5 % (39.0-77.0); PLATELET COUNT 83 10^3/UL (140-415); RED BLOOD COUNT 3.29 10^6/ul (4.20-5.40); RED CELL DISTRIBUTION WIDTH 16.9 % (11.5-14.5); WHITE BLOOD COUNT 5.6 10^3/ul (4.8-10.8)
[2016-09-27 06:49] LABS: MAGNESIUM 2.6 mg/dl (1.7-2.5); PHOSPHORUS 2.6 mg/dl (2.5-4.9)
[2016-09-27 06:51] LABS: CALCIUM 8.1 mg/dl (8.4-10.2); CREATININE 0.95 mg/dl (0.44-1.00); POTASSIUM 3.7 mmol/L (3.5-5.1)
--- NOTE | 2016-09-27 07:17 | RADRPT ---
PROCEDURE: XR Chest. CLINICAL INDICATION: Intubated, respiratory failure TECHNIQUE: Anterior chest x-ray. COMPARISON: Chest radiograph performed the prior day. FINDINGS: Exam is limited due to rotated position. There is stable and satisfactory position of the life-support lines. The lung volumes are low. There is crowding of central pulmonary vasculature. Retrocardiac consolidation is unchanged from previous exam. Patchy airspace opacity in the right lower lung zone is new compared to previous exam. The upper lung zones are clear. The cardiomediastinal contour is stable. There is no free air under the hemidiaphragms. The soft tissues and bony structures are unchanged. IMPRESSION: 1. Stable and satisfactory position of the life-support lines. 2. Low lung volumes with compressive changes in bilateral lung bases. 3. Cardiomegaly. 4. Atherosclerotic calcification of the aorta. RPTAT: II .Franklin Basilio MD, Date Time Electronically viewed and signed by .Franklin Basilio MD, on 09/27/2016 07:17 .M/
[2016-09-27] MEDS: PROPOFOL 100 ML IV SCH ×2 (07:20→08:32)
[2016-09-27 08:11] LABS: AADO2 Arterial 84.8 mmHg (7.0-24.0); Allen Test ACCEPTAB; Arterial Base Excess 4.6 mmol/L (-3.0-3); Arterial COHb 0 % (0.0-3.0); Arterial Fraction of Oxyhgb 96.2 % (93.0-99.0); Arterial HCO3 27.4 mmol/L (22.0-26.0); Arterial MetHb 0.4 % (0.0-1.5); Arterial Total Hemglobin 10.3 g/dl (12.0-18.0); MODE VENT - AC
[2016-09-27] MEDS: LEVETIRACETAM 500 MG (PMX) 100 ML IVPB SCH ×2 (08:36→21:30)
[2016-09-27] MEDS: FERROUS SULFATE 60 MG/ML 5ML CUP NGT SCH ×2 (08:36→21:48)
[2016-09-27] MEDS: METOPROLOL 50 MG TAB NGT SCH ×2 (08:37→21:48)
[2016-09-27] MEDS: DIGOXIN 0.125 MG TAB PO SCH (08:37)
[2016-09-27] MEDS: LOSARTAN 50 MG TAB PO SCH (08:37)
[2016-09-27] MEDS: AMIODARONE 200 MG TAB PO SCH (08:38)
[2016-09-27] MEDS: SOD CHLORIDE 0.9% 1,000 ML IV SCH ×2 (08:38→12:13)
--- NOTE | 2016-09-27 09:36 | PN ---
Date/Time of Note Date/Time of Note DATE: 09/27/16 TIME: 09:31 Assessment/Plan VTE Prophylaxis VTE Prophylaxis Intervention: SCD's VTE Contraindication Reason: hemorrhagic cerebral infarction Lines/Catheters IV Catheter Type (from Nrs): Peripheral IV Urinary Cath still in place: Yes Reason Cath still needed: terminal illness/intractable pain Assessment/Plan Assessment/Plan 1. Intracranial bleeding including intraparenchymal hematoma and bilateral subdural hematomas with midline shift. 2. Accelerated hypertension. Continue antihypertensives as per cardiology recommendations. 3. Atrial fibrillation. The patient's heart rate is currently controlled. The patient will be continued on amiodarone and digoxin. 4. Cardiomyopathy with ejection fraction of 30% with stage III and stage IV diastolic dysfunction. The patient will be continued on beta blockers and ARB' s. 5. Hypothyroidism. The patient will be continued on Synthroid. 6. Hyperlipidemia. Continue statins. 7. Type 2 diabetes mellitus. Continue SSI. 8. Normocytic anemia. The patient has a history of iron deficiency. Continue iron supplements. 9. Thrombocytopenia. The patient will be monitored for any bleeding. Avoid any antiplatelet or anticoagulants. 10. Sepsis with underlying bacteremia. Continue antibiotics as per infectious diseases. 11. Fluids, electrolytes, and nutrition. Tube feedings. 12. DVT prophylaxis. Bilateral sequential compression devices. 13. Gastrointestinal prophylaxis. Proton pump inhibitors. 14. Plan. * Continue ICU monitoring. * Continue ICP lowering measures including elevation of bed, hyperventilation, and keeping the sodium high. * Replete potassium. * Adjust insulin and tube feeds * Continue to avoid ASA and anticoagulation * Continue seizure precautions Poor prognosis. Palliative Care has been consulted. CRITICAL CARE TIME: >35 mins Subjective 24 Hr Interval Summary Free Text/Dictation unchanged , no acute overnight event Subjective hx not possible: pt non-verbal, pt critical, pt critical status Exam/Review of Systems Vital Signs Vitals Vital Signs Date Time Temp Pulse Resp B/P Pulse Ox O2 Delivery O2 Flow Rate FiO2 09/27/16 08:00 98.6 80 18 126/60 98 Mechanical Ventilator 09/27/16 08:00 30 Intake and Output 09/26/16 09/26/16 09/27/16 15:00 23:00 07:00 Intake Total 850 ml 830 ml 350 ml Output Total 425 ml 260 ml 185 ml Balance 425 ml 570 ml 165 ml Exam GENERAL: This is an elderly female patient lying in bed, orally intubated and mechanically ventilated.but on no sedation HEENT: Head normocephalic and atraumatic. Eyes: Anicteric sclerae. Conjunctivae clear. Pupils are slightly sure reactive bilaterally. ENT: Nasal septum is midline. Oral mucosa is dry. Orally intubated. NECK: Supple. No JVD noticed. RESPIRATORY: Bilaterally diminished breath sounds. No adventitious breath sounds heard. On AC mode ventilation. CARDIAC: Regular rate and rhythm. S1, S2 heard. Grade III/ systolic ejection murmur. ABDOMEN: Soft, scaphoid. Nontender. Bowel sounds hypoactive in all 4 quadrants. GENITOURINARY: The patient has a Macedo catheter in place. EXTREMITIES: No cyanosis, no clubbing, no edema. Peripheral pulses are palpable. NEUROLOGIC: The patient is unresponsive. Has some purposeful movement of the left upper extremity. Withdrawal to pain of bilateral lower extremities and right upper extremity. Results Result Diagram: 09/27/16 0535 09/27/16 0535 Results 24 hrs Laboratory Tests Test 09/26/16 12:57 09/26/16 17:32 09/26/16 20:19 09/26/16 20:50 Bedside Glucose 197 155 172 Sodium Level 156 H Test 09/26/16 22:19 09/27/16 02:28 09/27/16 05:35 09/27/16 06:21 Bedside Glucose 169 195 172 White Blood Count 5.6 Red Blood Count 3.29 L Hemoglobin 9.1 L Hematocrit 31.3 L Mean Corpuscular Volume 95.1 Mean Corpuscular Hemoglobin 27.7 L Mean Corpuscular Hemoglobin Concent 29.1 L Red Cell Distribution Width 16.9 H Platelet Count 83 L Mean Platelet Volume 13.9 H Neutrophils % 81.5 H Lymphocytes % 10.3 L Monocytes % 7.5 Eosinophils % 0.2 Basophils % 0.0 Nucleated Red Blood Cells % 0.0 Neutrophils # 4.6 Lymphocytes # 0.6 L Monocytes # 0.4 Eosinophils # 0.0 Basophils # 0.0 Nucleated Red Blood Cells # 0.0 Sodium Level 155 H Potassium Level 3.7 Chloride Level 121 H Carbon Dioxide Level 31 Anion Gap 7 L Blood Urea Nitrogen 39 H Creatinine 0.95 Glucose Level 162 Calcium Level 8.1 L Phosphorus Level 2.6 Magnesium Level 2.6 H Test 09/27/16 07:00 09/27/16 08:45 Blood Gas Specimen Source Blood arterial Arterial Blood Date Drawn 09/27/2016 7:30:46 AM Arterial Blood pH (Temp corrected) 7.522 H Arterial Blood pCO2 (Temp correct) 34.2 L Arterial Blood pO2 (Temp corrected) 88.9 Arterial Blood HCO3 27.4 H Arterial Blood Base Excess 4.6 H Arterial Blood Oxygen Saturation 96.6 Rajendra Test ACCEPTAB Arterial Blood Gas Puncture Site Right Radial Arterial Blood Carboxyhemoglobin 0 Arterial Blood Methemoglobin 0.4 Blood Gas A-a O2 Differential 84.8 H Oxyhemoglobin Percent 96.2 Total Hemoglobin 10.3 L Blood Gas Temperature 37.0 Blood Gas Respiration Rate 18.0 Blood Gas Actual Respiration Rate 18 Blood Gas Modality VENT - AC FiO2 30.0 Blood Gas Tidal Volume 450.0 Blood Gas Low PEEP Setting 5.0 Blood Gas Notified Whom JLD Blood Gas Notified Time 09/27/2016 8:11:25 AM Bedside Glucose 183 Medications Medications Current Medications Ondansetron HCl (Zofran Inj) 4 mg Q6H PRN IV NAUSEA AND/OR VOMITING; Start at 09:00 Acetaminophen (Tylenol Supp) 650 mg Q4H PRN ID PAIN LEVEL 1-3 OR FEVER Last administered on 09/23/16 08:38; Admin Dose 650 MG; Start 09/21/16 at 09:00 Morphine Sulfate (morphine) 2 mg Q4H PRN IV PAIN LEVEL 7-10; Start 09/21/16 at 09:00 Pantoprazole (Protonix Iv) 40 mg DAILY@06 IV Last administered on 09/27/16 06: 18; Admin Dose 40 MG; Start 09/22/16 at 06:00 Lorazepam 1 mg 1 mg Q2H PRN IV Seizures; Start 09/21/16 at 09:30 Propofol (Diprivan) 100 ml @ 1.95 mls/hr Q12H IV ; Start 09/21/16 at 09:30 Amiodarone HCl (Cordarone) 200 mg DAILY PO Last administered on 09/27/16 08:38 ; Admin Dose 200 MG; Start 09/22/16 at 09:00 Digoxin (Digoxin) 0.125 mg DAILY PO Last administered on 09/27/16 08:37; Admin Dose 0.125 MG; Start 09/22/16 at 09:00 Losartan Potassium (Cozaar) 50 mg DAILY PO Last administered on 09/27/16 08:37 ; Admin Dose 50 MG; Start 09/22/16 at 09:00 Atorvastatin Calcium (Lipitor) 40 mg DAILY@21 PO Last administered on 21:23; Admin Dose 40 MG; Start 09/21/16 at 21:00 Insulin Aspart (Novolog Insulin Pen) NOVOLOG *MILD* ALGORITHM Q4H SC Last administered on 09/27/16 08:47; Admin Dose 2 UNIT; Start 09/21/16 at 10:00 Miscellaneous Information 1 ea NOTE XX ; Start 09/21/16 at 10:00 Glucose (Glutose) 15 gm Q15M PRN PO DECREASED GLUCOSE; Start 09/21/16 at 10:00 Glucose (Glutose) 22.5 gm Q15M PRN PO DECREASED GLUCOSE; Start 09/21/16 at 10: 00 Dextrose (D50w Syringe) 25 ml Q15M PRN IV DECREASED GLUCOSE; Start 09/21/16 at 10:00 Dextrose (D50w Syringe) 50 ml Q15M PRN IV DECREASED GLUCOSE; Start 09/21/16 at 10:00 Glucagon (Glucagen) 1 mg Q15M PRN IM DECREASED GLUCOSE; Start 09/21/16 at 10:00 Glucose (Glutose) 15 gm Q15M PRN BUCCAL DECREASED GLUCOSE; Start 09/21/16 at 10 :00 Metoprolol Tartrate (Lopressor) 50 mg BID NGT Last administered on 09/27/16 08 :37; Admin Dose 50 MG; Start 09/22/16 at 10:00 Ferrous Sulfate 300 mg 300 mg BID NGT Last administered on 09/27/16 08:36; Admin Dose 300 MG; Start 09/22/16 at 10:00 Sodium Chloride 1,000 ml @ 20 mls/hr Q24H IV Last administered on 09/27/16 08 :38; Admin Dose 20 MLS/HR; Start 09/23/16 at 10:00 Levetiracetam 100 ml @ 400 mls/hr BID IVPB Last administered on 09/27/16 08: 36; Admin Dose 400 MLS/HR; Start 09/24/16 at 14:30 Ceftriaxone Sodium (Rocephin) 50 ml @ 100 mls/hr Q24H IVPB Last administered on 09/26/16 11:40; Admin Dose 100 MLS/HR; Start 09/25/16 at 12:00 Insulin Glargine (Lantus) 10 unit DAILY@20 SC Last administered on 09/26/16 20 :24; Admin Dose 10 UNIT; Start 09/26/16 at 20:00 Procedures Procedures PROCEDURE: CT Brain without contrast. CLINICAL INDICATION: Intracerebral hemorrhage TECHNIQUE: Routine CT scan of the brain was performed on a high resolution multi detector scanner without intravenous contrast. One or more of the following dose reduction techniques were used: Automated exposure control; Adjustment of the mA and/or kV according to patient size; Use of iterative reconstruction technique. CTDI = 43 mGy. DLP = 720 mGy-cm. COMPARISON: CT scan of the brain 09/22/2016 FINDINGS: Hemorrhage: 4.1 x 3.9 x 4.1 cm recent intraparenchymal hematoma within the right frontal lobe is unchanged. Small subdural hematomas measuring up to 4 mm in thickness overlying both cerebral hemispheres are unchanged. Minimal dorsal left temporal subarachnoid hemorrhage is unchanged. No new areas of hemorrhage are seen. Acute ischemic changes: No evidence of acute ischemic changes. Mass effect/Midline shift: Approximately 4 mm of midline shift of the septum pellucidum to the left is unchanged. Minimal effacement of the suprasellar cistern is unchanged in appearance. Parenchymal volume: Mild central parenchymal volume loss is evident. Ventricular system: Nearly concordant with degree of parenchymal volume. No evidence of acute hydrocephalous or ventricular entrapment. Chronic changes: Mild chronic-appearing microvascular ischemic changes of the supratentorial white matter. Atherosclerotic calcifications of the cavernous portions of both internal carotid arteries are present. Extracranial soft tissues: Unremarkable. Calvarium: No fractures. Paranasal sinuses: Visualized paranasal sinuses are clear. Mastoid air cells: Visualized mastoid air cells are clear. IMPRESSION: No evidence of new intracranial hemorrhage. Unchanged appearance of left frontal intraparenchymal hematoma, bilateral cerebral convexities small subdural hematomas and small dorsal left temporal subarachnoid hemorrhage. Minimal midline shift to the left of approximately 4 mm is unchanged. Minimal effacement of the suprasellar cistern is unchanged. No evidence of new hydrocephalus or ventricular entrapment. RPTAT: AADD .Feroz Hamm MD, MD Date Time Electronically viewed and signed by .Feroz Hamm MD, MD on 09/25/2016 10:15 .[place]/ CC: DICK JACOBO MD DATE OF PROCEDURE: 09/25/2016 PROCEDURE: Electroencephalogram. DESCRIPTION OF PROCEDURE: Routine EEG was recorded digitally. [id number] and [id number] montages were recorded and reviewed. All impedances were measured and recorded. Cap electrodes were placed in accordance with International 10-20 system of electrode placement. INDICATION: The patient is a 76-year-old lady with subdural hematomas, midline shift, encephalopathy, intubated but responsive to pain. She is on Keppra along with other medications. FINDINGS: Symmetrically distributed background activity was seen throughout the recording ranging in frequency predominantly between 4 to 6 cycles per second. At times, background gets slightly slower, 2 to 4 cycles per second, and at times slightly faster up to 8 cycles per second. Intermittent, not rhythmical sharp waves, usually bilateral with triphasic morphology and anterior to posterior lag were seen. No definite epileptiform transients were seen. No signs of ongoing electrographic seizures or lateralized slowing. IMPRESSION: Abnormal study secondary to background slowing and presence of triphasic waves. All reflect encephalopathy, likely toxic metabolic in etiology. Dictated By: MEENA ZamanV/JARRELL Conf#: [id number] DID#: [id number] LAINEY AGARWAL September 27, 2016 09:36
[2016-09-27] MEDS ORDERED: DEXTROSE 5% 1,000 ML IV SCH (10:00)
[2016-09-27] MEDS ORDERED: IODIXANOL LOCM 100 ML BTL ONE (10:17)
[2016-09-27] MEDS ORDERED: SOD CHLORIDE 0.9% 100 ML ONE (10:17)
--- NOTE | 2016-09-27 11:26 | CONS ---
Date/Time of Note Date/Time of Note DATE: 09/27/16 TIME: 11:24 Consult Date/Type/Reason Admit Date/Time September 21, 2016 at 08:29 Initial Consult Date 09/21/16 Type of Consultation: Pulmonary ICU Ordering Provider: LAINEY AGARWAL Subjective Patient remains minimally responsive on mechanical ventilation Tube feeding tolerated Objective Vital Signs Date Time Temp Pulse Resp B/P Pulse Ox O2 Delivery O2 Flow Rate FiO2 09/27/16 11:00 80 18 109/52 97 Mechanical Ventilator 09/27/16 10:46 30 09/27/16 08:00 98.6 Intake and Output 09/26/16 09/26/16 09/27/16 15:00 23:00 07:00 Intake Total 850 ml 830 ml 350 ml Output Total 425 ml 260 ml 185 ml Balance 425 ml 570 ml 165 ml Exam PHYSICAL EXAMINATION: GENERAL: Elderly-appearing lady, comfortable at rest, no acute distress. Intubated on mechanical ventilation VITAL SIGNS: As above HEENT: Dry mucous membranes. Pupils are sluggish, minimally reactive. CARDIAC: S1, S2, no added sounds or murmurs. CHEST: Diminished air entry bilaterally. ABDOMEN: Soft, nontender. No guarding or rebound. EXTREMITIES: No cyanosis, clubbing, edema. NEUROLOGIC: Right hemiplegia Results/Medications Result Diagram: 09/27/16 0535 09/27/16 0535 Results 24 hrs Laboratory Tests Test 09/26/16 12:57 09/26/16 17:32 09/26/16 20:19 09/26/16 20:50 Bedside Glucose 197 155 172 Sodium Level 156 H Test 09/26/16 22:19 09/27/16 02:28 09/27/16 05:35 09/27/16 06:21 Bedside Glucose 169 195 172 White Blood Count 5.6 Red Blood Count 3.29 L Hemoglobin 9.1 L Hematocrit 31.3 L Mean Corpuscular Volume 95.1 Mean Corpuscular Hemoglobin 27.7 L Mean Corpuscular Hemoglobin Concent 29.1 L Red Cell Distribution Width 16.9 H Platelet Count 83 L Mean Platelet Volume 13.9 H Neutrophils % 81.5 H Lymphocytes % 10.3 L Monocytes % 7.5 Eosinophils % 0.2 Basophils % 0.0 Nucleated Red Blood Cells % 0.0 Neutrophils # 4.6 Lymphocytes # 0.6 L Monocytes # 0.4 Eosinophils # 0.0 Basophils # 0.0 Nucleated Red Blood Cells # 0.0 Sodium Level 155 H Potassium Level 3.7 Chloride Level 121 H Carbon Dioxide Level 31 Anion Gap 7 L Blood Urea Nitrogen 39 H Creatinine 0.95 Glucose Level 162 Calcium Level 8.1 L Phosphorus Level 2.6 Magnesium Level 2.6 H Test 09/27/16 07:00 09/27/16 08:45 Blood Gas Specimen Source Blood arterial Arterial Blood Date Drawn 09/27/2016 7:30:46 AM Arterial Blood pH (Temp corrected) 7.522 H Arterial Blood pCO2 (Temp correct) 34.2 L Arterial Blood pO2 (Temp corrected) 88.9 Arterial Blood HCO3 27.4 H Arterial Blood Base Excess 4.6 H Arterial Blood Oxygen Saturation 96.6 Rajendra Test ACCEPTAB Arterial Blood Gas Puncture Site Right Radial Arterial Blood Carboxyhemoglobin 0 Arterial Blood Methemoglobin 0.4 Blood Gas A-a O2 Differential 84.8 H Oxyhemoglobin Percent 96.2 Total Hemoglobin 10.3 L Blood Gas Temperature 37.0 Blood Gas Respiration Rate 18.0 Blood Gas Actual Respiration Rate 18 Blood Gas Modality VENT - AC FiO2 30.0 Blood Gas Tidal Volume 450.0 Blood Gas Low PEEP Setting 5.0 Blood Gas Notified Whom JLD Blood Gas Notified Time 09/27/2016 8:11:25 AM Bedside Glucose 183 Medications Current Medications Ondansetron HCl (Zofran Inj) 4 mg Q6H PRN IV NAUSEA AND/OR VOMITING; Start at 09:00 Acetaminophen (Tylenol Supp) 650 mg Q4H PRN NM PAIN LEVEL 1-3 OR FEVER Last administered on 09/23/16 08:38; Admin Dose 650 MG; Start 09/21/16 at 09:00 Morphine Sulfate (morphine) 2 mg Q4H PRN IV PAIN LEVEL 7-10; Start 09/21/16 at 09:00 Pantoprazole (Protonix Iv) 40 mg DAILY@06 IV Last administered on 09/27/16 06: 18; Admin Dose 40 MG; Start 09/22/16 at 06:00 Lorazepam 1 mg 1 mg Q2H PRN IV Seizures; Start 09/21/16 at 09:30 Propofol (Diprivan) 100 ml @ 1.95 mls/hr Q12H IV ; Start 09/21/16 at 09:30 Amiodarone HCl (Cordarone) 200 mg DAILY PO Last administered on 09/27/16 08:38 ; Admin Dose 200 MG; Start 09/22/16 at 09:00 Digoxin (Digoxin) 0.125 mg DAILY PO Last administered on 09/27/16 08:37; Admin Dose 0.125 MG; Start 09/22/16 at 09:00 Losartan Potassium (Cozaar) 50 mg DAILY PO Last administered on 09/27/16 08:37 ; Admin Dose 50 MG; Start 09/22/16 at 09:00 Atorvastatin Calcium (Lipitor) 40 mg DAILY@21 PO Last administered on 21:23; Admin Dose 40 MG; Start 09/21/16 at 21:00 Miscellaneous Information 1 ea NOTE XX ; Start 09/21/16 at 10:00 Glucose (Glutose) 15 gm Q15M PRN PO DECREASED GLUCOSE; Start 09/21/16 at 10:00 Glucose (Glutose) 22.5 gm Q15M PRN PO DECREASED GLUCOSE; Start 09/21/16 at 10: 00 Dextrose (D50w Syringe) 25 ml Q15M PRN IV DECREASED GLUCOSE; Start 09/21/16 at 10:00 Dextrose (D50w Syringe) 50 ml Q15M PRN IV DECREASED GLUCOSE; Start 09/21/16 at 10:00 Glucagon (Glucagen) 1 mg Q15M PRN IM DECREASED GLUCOSE; Start 09/21/16 at 10:00 Glucose (Glutose) 15 gm Q15M PRN BUCCAL DECREASED GLUCOSE; Start 09/21/16 at 10 :00 Metoprolol Tartrate (Lopressor) 50 mg BID NGT Last administered on 09/27/16 08 :37; Admin Dose 50 MG; Start 09/22/16 at 10:00 Ferrous Sulfate 300 mg 300 mg BID NGT Last administered on 09/27/16 08:36; Admin Dose 300 MG; Start 09/22/16 at 10:00 Levetiracetam 100 ml @ 400 mls/hr BID IVPB Last administered on 09/27/16 08: 36; Admin Dose 400 MLS/HR; Start 09/24/16 at 14:30 Ceftriaxone Sodium (Rocephin) 50 ml @ 100 mls/hr Q24H IVPB Last administered on 09/26/16 11:40; Admin Dose 100 MLS/HR; Start 09/25/16 at 12:00 Insulin Glargine (Lantus) 10 unit DAILY@20 SC Last administered on 09/26/16 20 :24; Admin Dose 10 UNIT; Start 09/26/16 at 20:00 Diagnostic Test (Pha) 1 ea 1 ea 02 XX ; Start 09/28/16 at 02:00 Dextrose (D5W) 1,000 ml @ 40 mls/hr Q24H IV ; Start 09/27/16 at 10:00; Stop at 10:59 Assessment/Plan Chief Complaint/Hosp Course IMPRESSION: 1. Acute intracerebral bleed with midline shift. Managed conservatively to high risk for neurosurgical intervention 2. History of anticoagulation with Eliquis for atrial fibrillation. 3. Pacemaker placement. 4. Recent non-ST elevation myocardial infarction. 5. Hypernatremia PLAN: 1. Continue mechanical ventilation for hypoxemic respiratory failure and airway protection. 2. Neurosurgical recommendations. Currently not neurosurgical candidate 3. Blood pressure management. 4. DVT and GI prophylaxis. 5. Continue tube feeding 6. Continue hypernatremia per neurology recommendations Disposition Continue supportive care family deferring decision for tracheostomy at this point Problems: MIKAYLA PISANO MD, [facility] September 27, 2016 11:26
[2016-09-27] MEDS ORDERED: INSULIN ASPART [NOVOLOG] 3 ML PEN SC SCH ×2 (11:30→13:00)
--- NOTE | 2016-09-27 11:48 | RADRPT ---
PROCEDURE: CTA Head and Neck. CLINICAL INDICATION: ? AVM, ANEURYSM OR OTHER VASCULAR ABNORMALITY. Intracranial bleed TECHNIQUE: Continues axial 0.63 mm sections were obtained through the head and neck with the use o f 85 cc of Visipaque 320 nonionic intravenous contrast material. Coronal and sagittal as well as ma ximal intensity projection reformations were obtained. 3-D re-formations were performed as well. Th e images were reviewed on a PACS workstation.The calculated radiation dose measures 646 mGy centimet ers. The CTDI measures 16 mGy COMPARISON: No prior studies are available for comparison. FINDINGS: NECK: The aortic arch is normal appearance. The origins of the great vessels are intact. The brachiocephalic artery appears unremarkable. The right common carotid artery appears normal, wi thout stenosis or occlusion. The right carotid bifurcation demonstrates mild partially calcified pl aque, without significant stenosis. The right internal carotid artery flows through normally to the intracranial segment. The left common carotid artery appears normal, without stenosis or occlusion. The left carotid bifu rcation demonstrates irregular contour, possibly related to prior endarterectomy, without significan t stenosis. The left internal carotid artery flows through normally to the intracranial segment. The bilateral vertebral arteries are identified, without stenosis or occlusion. There is a heterogeneous multinodular appearance of the thyroid gland, larger on the right. There a re bilateral pleural effusions. HEAD: The petrous right internal carotid artery appears normally patent. The cavernous and supraclinoid r ight internal carotid artery segments demonstrate prominent calcification, with moderate to severe s cattered areas of narrowing.. The right anterior and middle cerebral arteries are unremarkable. The petrous left internal carotid artery appears normally patent. The cavernous and supraclinoid le ft internal carotid artery segments demonstrate prominent calcification, with scattered moderate are as of narrowing.. The left anterior and middle cerebral arteries are unremarkable. The anterior communicating artery is unremarkable. The bilateral posterior communicating arteries a re not well seen, likely small in size or hypoplastic. There is no evidence of aneurysm or vascula r malformation involving the anterior circulation. There is mild to moderate of areas of irregularity and narrowing through the right vertebral artery intracranial V4 segment. The left vertebral artery is dominant, and normally patent. There is mild calcification and mild narrowing involving the proximal basilar artery. The superior cerebellar arteries are unremarkable. Bilateral posterior cerebral arteries are normally patent. There is no aneurysm or vascular malformation involving the posterior circulation. Again identified is a right frontal parenchymal hematoma, up to least 4.1 cm in size, with adjacent vasogenic edema. A previously noted focus of apparent active contrast extravasation on the prior exa mination along the anterior margin of the hematoma is no longer visualized. There is bilateral subd ural hematomas. IMPRESSION: 1. No significant stenosis of the bilateral cervical common or internal carotid arteries, or bilater al vertebral arteries. Mild calcified plaque at the right carotid bifurcation. 2. Prominent calcification with moderate to severe areas of narrowing through the right cavernous a nd supraclinoid internal carotid artery. Prominent calcification and scattered areas of moderate na rrowing through the left cavernous and supraclinoid internal carotid artery. 3. Mild to moderate narrowing through the right vertebral artery intracranial V4 segment, and mild narrowing of the proximal basilar artery. 4. Right frontal parenchymal hematoma again identified. Previously seen anterior contrast extravas ation is no longer seen. No large vascular malformation or aneurysm is presently identified in the region. Bilateral subdural hematomas. 5. Heterogeneous multinodular thyroid gland. Bilateral pleural effusions. Measurements of the cervical internal carotid artery stenosis were peformed according to [facility]. RPTAT: DD .Fox Jhaveri MD, MD Date Time Electronically viewed and signed by .Fox Jhaveri MD, on 09/27/2016 11:48 .T/
[2016-09-27] MEDS: CEFTRIAXONE 1 GM/50 ML (PMX) 50 ML IVPB SCH (12:13)
[2016-09-27] MEDS: Insulin NOVOLOG SS MODERATE Algorithm(NPO/TPN/ENTERAL FEEDS) SC SCH ×3 (12:17→21:36)
--- NOTE | 2016-09-27 12:40 | CONS ---
Date/Time of Note Date/Time of Note DATE: 09/27/16 TIME: 12:33 Assessment/Plan Assessment/Plan Chief Complaint/Hosp Course IMPRESSION: 1. Congestive heart failure exacerbation, systolic, acute on chronic, by recent echocardiogram in 07/2016 revealing ejection fraction of 25%. 2. Cardiomyopathy with decreased left ventricular ejection fraction, last ejection fraction approximately 25% by echocardiogram 07/2016. 3. History of automatic implantable cardioverter-defibrillator. 4. History of paroxysmal atrial fibrillation, previously on systemic anticoagulation. 5. Subdural hematomas with midline shift and vasogenic edema- no sig change by serial CT done this AM 6. Encephalopathy. 7. Hypertension. 8. Anemia. 9. Thrombocytopenia 10.Hypernatremia Recc: -Tele -serial ecg's -Follow [facility] recomendations for hypertonic saline/hypoventilation/increased na levels -Follow MS closly -Continue BB/losartan -Continue amio/digoxin -Follow volume status closely -Follow-up serial CT -[facility] following -Palliative care following/family deciding upon direction of care Problems: Consultation Date/Type/Reason Admit Date/Time September 21, 2016 at 08:29 Initial Consult Date 09/21/16 Type of Consultation: Cardiology Reason for Consultation cardiomyopathy Referring Provider: LAINEY AGARWAL Exam/Review of Systems Vital Signs Vitals Vital Signs Date Time Temp Pulse Resp B/P Pulse Ox O2 Delivery O2 Flow Rate FiO2 09/27/16 11:00 80 18 109/52 97 Mechanical Ventilator 09/27/16 10:46 30 09/27/16 08:00 98.6 Intake and Output 09/26/16 09/26/16 09/27/16 15:00 23:00 07:00 Intake Total 850 ml 830 ml 350 ml Output Total 425 ml 260 ml 185 ml Balance 425 ml 570 ml 165 ml Exam Review of Systems: CONSTITUTIONAL: No fevers, chills. PULMONARY: intubated CARDIOVASCULAR: No obvious chest pain/palpitations GASTROINTESTINAL: No nausea/vomiting. GENITOURINARY: No hematuria/dysuria. MUSCULOSKELETAL: No obvious myagias/arthalgias. PSYCHIATRIC: No documented depression. NEUROLOGIC: No weakness Constitutional: alert Psych: no complaints Head: normocephalic ENMT: mucosa pink and moist Neck: jvd, supple Respiratory: diminished breath sounds Cardiovascular: regular rate and rhythm Gastrointestinal: non-tender, soft Musculoskeletal: muscle tone Neurological: other (No focal deficits) Results Result Diagram: 09/27/16 0535 09/27/16 0535 Results 24 hrs Laboratory Tests Test 09/26/16 12:57 09/26/16 17:32 09/26/16 20:19 09/26/16 20:50 Bedside Glucose 197 155 172 Sodium Level 156 H Test 09/26/16 22:19 09/27/16 02:28 09/27/16 05:35 09/27/16 06:21 Bedside Glucose 169 195 172 White Blood Count 5.6 Red Blood Count 3.29 L Hemoglobin 9.1 L Hematocrit 31.3 L Mean Corpuscular Volume 95.1 Mean Corpuscular Hemoglobin 27.7 L Mean Corpuscular Hemoglobin Concent 29.1 L Red Cell Distribution Width 16.9 H Platelet Count 83 L Mean Platelet Volume 13.9 H Neutrophils % 81.5 H Lymphocytes % 10.3 L Monocytes % 7.5 Eosinophils % 0.2 Basophils % 0.0 Nucleated Red Blood Cells % 0.0 Neutrophils # 4.6 Lymphocytes # 0.6 L Monocytes # 0.4 Eosinophils # 0.0 Basophils # 0.0 Nucleated Red Blood Cells # 0.0 Sodium Level 155 H Potassium Level 3.7 Chloride Level 121 H Carbon Dioxide Level 31 Anion Gap 7 L Blood Urea Nitrogen 39 H Creatinine 0.95 Glucose Level 162 Calcium Level 8.1 L Phosphorus Level 2.6 Magnesium Level 2.6 H Test 09/27/16 07:00 09/27/16 08:45 09/27/16 12:14 Blood Gas Specimen Source Blood arterial Arterial Blood Date Drawn 09/27/2016 7:30:46 AM Arterial Blood pH (Temp corrected) 7.522 H Arterial Blood pCO2 (Temp correct) 34.2 L Arterial Blood pO2 (Temp corrected) 88.9 Arterial Blood HCO3 27.4 H Arterial Blood Base Excess 4.6 H Arterial Blood Oxygen Saturation 96.6 Rajendra Test ACCEPTAB Arterial Blood Gas Puncture Site Right Radial Arterial Blood Carboxyhemoglobin 0 Arterial Blood Methemoglobin 0.4 Blood Gas A-a O2 Differential 84.8 H Oxyhemoglobin Percent 96.2 Total Hemoglobin 10.3 L Blood Gas Temperature 37.0 Blood Gas Respiration Rate 18.0 Blood Gas Actual Respiration Rate 18 Blood Gas Modality VENT - AC FiO2 30.0 Blood Gas Tidal Volume 450.0 Blood Gas Low PEEP Setting 5.0 Blood Gas Notified Whom JLD Blood Gas Notified Time 09/27/2016 8:11:25 AM Bedside Glucose 183 167 Medications Medications Current Medications Ondansetron HCl (Zofran Inj) 4 mg Q6H PRN IV NAUSEA AND/OR VOMITING; Start at 09:00 Acetaminophen (Tylenol Supp) 650 mg Q4H PRN ID PAIN LEVEL 1-3 OR FEVER Last administered on 09/23/16 08:38; Admin Dose 650 MG; Start 09/21/16 at 09:00 Morphine Sulfate (morphine) 2 mg Q4H PRN IV PAIN LEVEL 7-10; Start 09/21/16 at 09:00 Pantoprazole (Protonix Iv) 40 mg DAILY@06 IV Last administered on 09/27/16 06: 18; Admin Dose 40 MG; Start 09/22/16 at 06:00 Lorazepam 1 mg 1 mg Q2H PRN IV Seizures; Start 09/21/16 at 09:30 Propofol (Diprivan) 100 ml @ 1.95 mls/hr Q12H IV ; Start 09/21/16 at 09:30 Amiodarone HCl (Cordarone) 200 mg DAILY PO Last administered on 09/27/16 08:38 ; Admin Dose 200 MG; Start 09/22/16 at 09:00 Digoxin (Digoxin) 0.125 mg DAILY PO Last administered on 09/27/16 08:37; Admin Dose 0.125 MG; Start 09/22/16 at 09:00 Losartan Potassium (Cozaar) 50 mg DAILY PO Last administered on 09/27/16 08:37 ; Admin Dose 50 MG; Start 09/22/16 at 09:00 Atorvastatin Calcium (Lipitor) 40 mg DAILY@21 PO Last administered on 21:23; Admin Dose 40 MG; Start 09/21/16 at 21:00 Miscellaneous Information 1 ea NOTE XX ; Start 09/21/16 at 10:00 Glucose (Glutose) 15 gm Q15M PRN PO DECREASED GLUCOSE; Start 09/21/16 at 10:00 Glucose (Glutose) 22.5 gm Q15M PRN PO DECREASED GLUCOSE; Start 09/21/16 at 10: 00 Dextrose (D50w Syringe) 25 ml Q15M PRN IV DECREASED GLUCOSE; Start 09/21/16 at 10:00 Dextrose (D50w Syringe) 50 ml Q15M PRN IV DECREASED GLUCOSE; Start 09/21/16 at 10:00 Glucagon (Glucagen) 1 mg Q15M PRN IM DECREASED GLUCOSE; Start 09/21/16 at 10:00 Glucose (Glutose) 15 gm Q15M PRN BUCCAL DECREASED GLUCOSE; Start 09/21/16 at 10 :00 Metoprolol Tartrate (Lopressor) 50 mg BID NGT Last administered on 09/27/16 08 :37; Admin Dose 50 MG; Start 09/22/16 at 10:00 Ferrous Sulfate 300 mg 300 mg BID NGT Last administered on 09/27/16 08:36; Admin Dose 300 MG; Start 09/22/16 at 10:00 Levetiracetam 100 ml @ 400 mls/hr BID IVPB Last administered on 09/27/16 08: 36; Admin Dose 400 MLS/HR; Start 09/24/16 at 14:30 Ceftriaxone Sodium (Rocephin) 50 ml @ 100 mls/hr Q24H IVPB Last administered on 09/27/16 12:13; Admin Dose 100 MLS/HR; Start 09/25/16 at 12:00 Insulin Glargine (Lantus) 10 unit DAILY@20 SC Last administered on 09/26/16 20 :24; Admin Dose 10 UNIT; Start 09/26/16 at 20:00 Diagnostic Test (Pha) 1 ea 1 ea 02 XX ; Start 09/28/16 at 02:00 Sodium Chloride (NS) 1,000 ml @ 20 mls/hr Q24H IV Last administered on 12:13; Admin Dose 20 MLS/HR; Start 09/27/16 at 11:30 Insulin Aspart (Novolog Insulin Pen) (Adult SC Insulin - Moder... Q4 SC Last administered on 09/27/16 12:17; Admin Dose 2 UNIT; Start 09/27/16 at 13:00 MATHEW AMADO September 27, 2016 12:40
--- NOTE | 2016-09-27 13:14 | PN ---
DATE: 09/27/2016 INFECTIOUS DISEASE PROGRESS NOTE SUBJECTIVE: No changes overnight. The patient is lying comfortably in bed. No fevers. VITAL SIGNS: Temperature 99, pulse 80, respirations 18, blood pressure 130/62, saturation 98 on alee t. LABORATORY DATA: WBC 5.6, platelets 83, neutrophils 81.5, BUN 39, creatinine 0.95. DIAGNOSTICS: Chest x-ray this morning revealed compressive changes in bilateral lung bases. INDWELLINGS: Endotracheal tube, NG tube, Macedo catheter, permanent pacemaker. ANTIMICROBIALS: The patient remains on IV Rocephin. MICROBIOLOGY: Blood culture on admission grew Streptococcus group D. PHYSICAL EXAMINATION: GENERAL: This is a fragile, chronically ill-appearing, elderly woman who is in no distress. HEENT: Head atraumatic, normocephalic. Sclerae anicteric. Buccal mucosa dry. NECK: Supple, trachea midline. CHEST: Rise symmetrical. Breath sounds diminished to bases. HEART: S1, S2. ABDOMEN: Soft. Bowel sounds present. EXTREMITIES: Without cyanosis. ASSESSMENT: 1. Status post streptococcal bacteremia. 2. Acute intracranial hemorrhage. 3. Coronary artery disease with atrial fibrillation and cardiomyopathy as well as congestive heart failure. 4. Diabetes. 5. Acute encephalopathy. PLAN: The patient remains stable. She is being followed by multiple consultants. Repeat cultures on September 23 negative. Continue on current antimicrobials. Dictated By: ANGELINA GAMEZ [employer] for ARMAND ALVARES/JARRELL Conf#: [id number] DID#: [id number]
[2016-09-27] MEDS: INSULIN GLARGINE [LANtus] 3 ML PEN SC SCH (20:38)
[2016-09-27] MEDS: ATORVASTATIN 40 MG TAB PO SCH (21:48)
[2016-09-28] VITALS (35 sets, daily range): BP systolic 80–129; BP diastolic 50–64; PULSE 79–80; RESP 17–18
[2016-09-28] MEDS: Insulin NOVOLOG SS MODERATE Algorithm(NPO/TPN/ENTERAL FEEDS) SC SCH ×6 (01:27→22:10)
[2016-09-28] MEDS: ACCU-CHEK XX SCH (02:00)
[2016-09-28] MEDS: LEVOTHYROXINE 100 MCG TAB PO SCH (06:23)
[2016-09-28] MEDS: PANTOPRAZOLE 40 MG INJ IV SCH (06:23)
[2016-09-28 06:27] LABS: ADD SCAN DIFF NO
[2016-09-28 06:37] LABS: ABNORMAL IP MESSAGE 1; EOSINOPHILS % 0.5 % (0.0-7.0); HEMATOCRIT 31.3 % (37.0-47.0); HEMOGLOBIN 9.5 g/dl (12.0-16.0); LYMPHOCYTES # 0.6 10^3/ul (0.8-2.9); LYMPHOCYTES % 10.1 % (15.0-51.0); MEAN CORPUSCULAR HEMOGLOBIN 28.8 pg (29.0-33.0); MEAN CORPUSCULAR HGB CONC 30.4 g/dl (32.0-37.0); MEAN CORPUSCULAR VOLUME 94.8 fl (82.0-101.0); MONOCYTE # 0.4 10^3/ul (0.3-0.9); MONOCYTES % 7.6 % (0.0-11.0); NEUTROPHIL # 4.6 10^3/ul (1.6-7.5); NEUTROPHILS % 81.3 % (39.0-77.0); PLATELET COUNT 77 10^3/UL (140-415); RED CELL DISTRIBUTION WIDTH 16.6 % (11.5-14.5); WHITE BLOOD COUNT 5.6 10^3/ul (4.8-10.8)
[2016-09-28 06:52] LABS: POTASSIUM 3.8 mmol/L (3.5-5.1)
[2016-09-28 06:54] LABS: MAGNESIUM 2.7 mg/dl (1.7-2.5)
[2016-09-28 06:54] LABS: CREATININE 1.03 mg/dl (0.44-1.00)
[2016-09-28 06:55] LABS: CALCIUM 8.1 mg/dl (8.4-10.2)
--- NOTE | 2016-09-28 07:01 | RADRPT ---
PROCEDURE: XR Chest. CLINICAL INDICATION: CHF TECHNIQUE: An AP view of the chest was obtained. COMPARISON: Chest x-ray dated 09/27/2016 FINDINGS: The endotracheal tube tip is approximately 4.6 cm above the luz marina. The tip of the enteric tube ex tends below the left diaphragm. There is a left subclavian single lead AICD. There is prominence of the interstitial and central pulmonary vascular markings with small bilatera l pleural effusions. No focal airspace opacification or pneumothorax is seen. The cardiomediastin al silhouette is mildly enlarged . Calcifications are seen within the aortic arch. The osseous str uctures demonstrate senescent changes. IMPRESSION: 1. Findings suggestive of pulmonary vascular congestion/interstitial edema with small bilateral pl eural effusions. Overall, no significant interval change. 2. Mild cardiomegaly and aortic atherosclerosis. 3. Tubes and lines, as described above. RPTAT: HH .Agnieszka Gómez MD, MD Date Time Electronically viewed and signed by .Agnieszka Gómez MD, MD on 09/28/2016 07:00 .G/
[2016-09-28 07:54] LABS: AADO2 Arterial 97.6 mmHg (7.0-24.0); Allen Test ACCEPTAB; Arterial Base Excess 4.6 mmol/L (-3.0-3); Arterial COHb 0.3 % (0.0-3.0); Arterial Fraction of Oxyhgb 94.4 % (93.0-99.0); Arterial HCO3 27.3 mmol/L (22.0-26.0); Arterial MetHb 0.2 % (0.0-1.5); MODE VENT - AC
[2016-09-28] MEDS: AMIODARONE 200 MG TAB PO SCH (08:21)
[2016-09-28] MEDS: FERROUS SULFATE 60 MG/ML 5ML CUP NGT SCH ×2 (08:21→21:52)
[2016-09-28] MEDS: LEVETIRACETAM 500 MG (PMX) 100 ML IVPB SCH ×2 (08:22→21:51)
[2016-09-28] MEDS: DIGOXIN 0.125 MG TAB PO SCH (08:24)
[2016-09-28] MEDS: PROPOFOL 100 ML IV SCH ×3 (09:00→21:30)
[2016-09-28] MEDS: LOSARTAN 50 MG TAB PO SCH (09:00)
[2016-09-28] MEDS: METOPROLOL 50 MG TAB NGT SCH ×2 (09:00→21:52)
--- NOTE | 2016-09-28 09:02 | CONS ---
DATE OF ADMISSION: 09/21/2016 DATE OF CONSULTATION: 09/28/2016 PALLIATIVE CARE CONSULTATION HISTORY OF PRESENT ILLNESS: This lady is a 76-year-old female who was admitted to [facility] an September 21, at that time presenting with acute onset of mental status changes. CT scan done in the emergency room showed intraparenchymal hematoma, bilateral subdural hematomas with a midline shift. Neurosurgery was consulted at that time. Other comorbid medical problems include hypertension, at rial fibrillation, cardiomyopathy, hypothyroidism, type 2 diabetes, and thrombocytopenia. The patie nt was seen and evaluated by neurosurgery, Dr. Todd, who felt that the patient's prognosis was p oor. Please refer to his dictated discussion on September 21 which says that she decided not to surgery at that time. Instead of discussing this in my dictation, defer to the extended discussion done by Dr. Todd. Essentially, the patient has been in the intensive care unit, intubated, without any clinical improvement in her overall neurological condition. On tube feeding at this time. Family members have been available at her bedside throughout her acute hospitalization. 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 Close attention has been done to her fluid and electrolyte abnormalities. At the time of this dictation, there are no family memb ers that are immediately available. I am told that there are close first-degree family members who have been intended since she has been here who are very attentive and not inappropriate either in th eir questions or in the level of care that she is receiving. I do not know who the participants are , the major decision makers, nor the background history of patient at this time, except which is fou nd in the history of present illness. Additionally, I will explore the patient's code status right now which is FULL CODE, their communication preferences, and the goals of care once I schedule a fam colin conference. The patient's estimated prognosis is extremely poor based on my examination and the information that I have reviewed from the other primary care members of her healthcare team. I do not see any evidence of pain or symptom management which is not controlled at this time. Ethical is sues at this point are level of care, we should explore who is the decision maker for the family, an d the psycho dynamics that may be going on with the family at this time, but them being completely s hocked that she is so critically ill. I have reviewed her medications, allergies, major medical pro blems in the past, listed on the history of present illness. SOCIAL HISTORY: Nonsmoker, nondrinker. FAMILY HISTORY: Unknown. REVIEW OF SYSTEMS: Cannot be obtained. PHYSICAL EXAMINATION: GENERAL: Shows an ill-appearing, elderly female who appears in no major acute distress as she is no ncommunicative. She does not respond to any simple verbal or tactile stimulation. She is otherwise normocephalic and atraumatic, anicteric, acyanotic on examination. VITAL SIGNS: Blood pressure 129/63, pulse is 79 and regular, respirations of 18, 98% saturation, 30 % FIO2, temperature 97.8 degrees. CHEST: Shows bilateral inspiratory and expiratory rhonchi on examination. CORONARY: S1, S2, without S3, S4, murmur, gallop, rub. Normal rate, normal rhythm. ABDOMEN: Grossly benign. NEUROLOGIC: She has disconjugate gaze. Difficult to evaluate if she has oculocephalics. The patie nt is contracted and difficult to open her eyes to evaluate. Her eyes are approximately 3 mm bilate rally. I cannot adequately evaluate whether or not she has corneals or any oculocephalics on examin ation, but she does not do any purposeful activity, does not open her eyes when stimulated, either v erbally or tactile stimulation. ASSESSMENT AND PLN: From a palliative care standpoint, I will schedule a family conference as soon as possible and review patient's overall condition and goals of care. Dictated By: SANDRA MEHTA MD, LP/JARRELL Conf#: [id number] DID#: [id number]
--- NOTE | 2016-09-28 10:36 | CONS ---
Date/Time of Note Date/Time of Note DATE: 09/28/16 TIME: 10:32 Assessment/Plan Assessment/Plan Additional Assessment/Plan Ventilator setting; AC of 18, tidal volume 450, PEEP of 5, 30% FiO2. Chest x-ray was reviewed from today which is showing endotracheal tube at an adequate level, bibasilar mild atelectatic changes are present. Assessment recommendations; 1. Patient admitted for respiratory failure due to intracranial hemorrhage. Patient has been deemed too high risk for neurosurgical intervention. 2. Profound mental unresponsiveness. 3. Gram-negative bacteremia, patient currently on Rocephin. 4. History of chronic atrial fibrillation. 5. Thrombocytopenia. Without any overt bleeding. 6. Hypernatremia. 7. History of pacemaker implantation. 8. History of hypertension. 9. History of hypo-thyroidism. 10. History of diabetes. Continue current treatment. Add DDAVP for correction of hypernatremia. 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 Prognosis appears extremely poor. Family needs to decide about CODE STATUS. 35 minutes critical care time spent evaluating the patient. Consultation Date/Type/Reason Admit Date/Time September 21, 2016 at 08:29 Initial Consult Date 09/21/16 Type of Consultation: Pulmonary/critical care Referring Provider: LAINEY AGARWAL 24 HR Interval Summary Free Text/Dictation Patient's condition remains critical. Remains unresponsive. No overt seizure activity noted. Has remained hemodynamically stable. Although still in atrial fibrillation which is her underlying cardiac rhythm. General exam; elderly lady, orally intubated, unresponsive, currently in no distress. Exam/Review of Systems Vital Signs Vitals Vital Signs Date Time Temp Pulse Resp B/P Pulse Ox O2 Delivery O2 Flow Rate FiO2 09/28/16 08:00 30 09/28/16 08:00 80 09/28/16 08:00 98.6 18 106/50 98 Mechanical Ventilator Intake and Output 09/27/16 09/27/16 09/28/16 15:00 23:00 07:00 Intake Total 565 ml 420 ml 340 ml Output Total 360 ml 260 ml 205 ml Balance 205 ml 160 ml 135 ml Exam HEENT exam; supple neck, patient is edentulous. Has bilateral intraocular lens implants. No neck masses. No thyromegaly. No neck bruits. Orally intubated. Chest examined; minimally decreased breath on lung bases. Upper lobes are clear. S1-S2 audible, no murmurs. Irregular rhythm. Abdomen examination; soft, nondistended. No organomegaly. Bowel sounds audible. Extremity exam; no peripheral edema. Patient does have multiple ecchymosis involving all 4 extremities. Pulses 1+ bilaterally. 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 There is occasional spontaneous left upper extremity movement seen . Results Result Diagram: 09/28/16 0608 09/28/16 0608 Results 24 hrs Laboratory Tests Test 09/27/16 12:14 09/27/16 14:23 09/27/16 17:17 09/27/16 20:24 Bedside Glucose 167 158 152 Sodium Level 157 H Test 09/27/16 21:03 09/27/16 21:27 09/28/16 01:23 09/28/16 02:01 Sodium Level 154 H Bedside Glucose 146 162 164 Test 09/28/16 05:00 09/28/16 05:15 09/28/16 06:08 09/28/16 07:00 Bedside Glucose 178 Phosphorus Level 3.0 Magnesium Level 2.7 H White Blood Count 5.6 Red Blood Count 3.30 L Hemoglobin 9.5 L Hematocrit 31.3 L Mean Corpuscular Volume 94.8 Mean Corpuscular Hemoglobin 28.8 L Mean Corpuscular Hemoglobin Concent 30.4 L Red Cell Distribution Width 16.6 H Platelet Count 77 L Mean Platelet Volume Neutrophils % 81.3 H Lymphocytes % 10.1 L Monocytes % 7.6 Eosinophils % 0.5 Basophils % 0.0 Nucleated Red Blood Cells % 0.0 Neutrophils # 4.6 Lymphocytes # 0.6 L Monocytes # 0.4 Eosinophils # 0.0 Basophils # 0.0 Nucleated Red Blood Cells # 0.0 Sodium Level 157 H Potassium Level 3.8 Chloride Level 120 H Carbon Dioxide Level 31 Anion Gap 10 Blood Urea Nitrogen 44 H Creatinine 1.03 H Glucose Level 162 Calcium Level 8.1 L Blood Gas Specimen Source Blood arterial Arterial Blood Date Drawn 09/28/2016 7:20:24 AM Arterial Blood pH (Temp corrected) 7.528 H Arterial Blood pCO2 (Temp correct) 33.6 L Arterial Blood pO2 (Temp corrected) 76.8 L Arterial Blood HCO3 27.3 H Arterial Blood Base Excess 4.6 H Arterial Blood Oxygen Saturation 94.9 L Rajendra Test ACCEPTAB Arterial Blood Gas Puncture Site Right Radial Arterial Blood Carboxyhemoglobin 0.3 Arterial Blood Methemoglobin 0.2 Blood Gas A-a O2 Differential 97.6 H Oxyhemoglobin Percent 94.4 Total Hemoglobin 10.0 L Blood Gas Temperature 37.0 Blood Gas Respiration Rate 18.0 Blood Gas Actual Respiration Rate 18 Blood Gas Modality VENT - AC FiO2 30.0 Blood Gas Tidal Volume 450.0 Blood Gas Low PEEP Setting 5.0 Blood Gas Notified Whom JLD Blood Gas Notified Time 09/28/2016 7:54:01 AM Test 09/28/16 08:14 Bedside Glucose 177 Medications Medications Current Medications Ondansetron HCl (Zofran Inj) 4 mg Q6H PRN IV NAUSEA AND/OR VOMITING; Start at 09:00 Acetaminophen (Tylenol Supp) 650 mg Q4H PRN [place] PAIN LEVEL 1-3 OR FEVER Last administered on 09/23/16 08:38; Admin Dose 650 MG; Start 09/21/16 at 09:00 Morphine Sulfate (morphine) 2 mg Q4H PRN IV PAIN LEVEL 7-10; Start 09/21/16 at 09:00 Pantoprazole (Protonix Iv) 40 mg DAILY@06 IV Last administered on 09/28/16 06: 23; Admin Dose 40 MG; Start 09/22/16 at 06:00 Lorazepam 1 mg 1 mg Q2H PRN IV Seizures; Start 09/21/16 at 09:30 Propofol (Diprivan) 100 ml @ 1.95 mls/hr Q12H IV ; Start 09/21/16 at 09:30 Amiodarone HCl (Cordarone) 200 mg DAILY PO Last administered on 09/28/16 08:21 ; Admin Dose 200 MG; Start 09/22/16 at 09:00 Digoxin (Digoxin) 0.125 mg DAILY PO Last administered on 09/28/16 08:24; Admin Dose 0.125 MG; Start 09/22/16 at 09:00 Losartan Potassium (Cozaar) 50 mg DAILY PO Last administered on 09/27/16 08:37 ; Admin Dose 50 MG; Start 09/22/16 at 09:00 Atorvastatin Calcium (Lipitor) 40 mg DAILY@21 PO Last administered on 21:48; Admin Dose 40 MG; Start 09/21/16 at 21:00 Miscellaneous Information 1 ea NOTE XX ; Start 09/21/16 at 10:00 Glucose (Glutose) 15 gm Q15M PRN PO DECREASED GLUCOSE; Start 09/21/16 at 10:00 Glucose (Glutose) 22.5 gm Q15M PRN PO DECREASED GLUCOSE; Start 09/21/16 at 10: 00 Dextrose (D50w Syringe) 25 ml Q15M PRN IV DECREASED GLUCOSE; Start 09/21/16 at 10:00 Dextrose (D50w Syringe) 50 ml Q15M PRN IV DECREASED GLUCOSE; Start 09/21/16 at 10:00 Glucagon (Glucagen) 1 mg Q15M PRN IM DECREASED GLUCOSE; Start 09/21/16 at 10:00 Glucose (Glutose) 15 gm Q15M PRN BUCCAL DECREASED GLUCOSE; Start 09/21/16 at 10 :00 Metoprolol Tartrate (Lopressor) 50 mg BID NGT Last administered on 09/27/16 21 :48; Admin Dose 50 MG; Start 09/22/16 at 10:00 Ferrous Sulfate 300 mg 300 mg BID NGT Last administered on 09/28/16 08:21; Admin Dose 300 MG; Start 09/22/16 at 10:00 Levetiracetam 100 ml @ 400 mls/hr BID IVPB Last administered on 09/28/16 08: 22; Admin Dose 400 MLS/HR; Start 09/24/16 at 14:30 Ceftriaxone Sodium (Rocephin) 50 ml @ 100 mls/hr Q24H IVPB Last administered on 09/27/16 12:13; Admin Dose 100 MLS/HR; Start 09/25/16 at 12:00 Insulin Glargine (Lantus) 10 unit DAILY@20 SC Last administered on 09/27/16 20 :38; Admin Dose 10 UNIT; Start 09/26/16 at 20:00 Diagnostic Test (Pha) 1 ea 1 ea 02 XX Last administered on 09/28/16 02:00; Admin Dose 1 EA; Start 09/28/16 at 02:00 Sodium Chloride (NS) 1,000 ml @ 20 mls/hr Q24H IV Last administered on 12:13; Admin Dose 20 MLS/HR; Start 09/27/16 at 11:30 Insulin Aspart (Novolog Insulin Pen) (Adult SC Insulin - Moder... Q4 SC Last administered on 09/28/16t 08:17; Admin Dose 2 UNIT; Start 09/27/16 at 13:00 JAY LEONARDO September 28, 2016 10:36
--- NOTE | 2016-09-28 11:16 | CONS ---
Date/Time of Note Date/Time of Note DATE: 09/28/16 TIME: 11:12 Assessment/Plan Assessment/Plan Chief Complaint/Hosp Course IMPRESSION: 1. Congestive heart failure exacerbation, systolic, acute on chronic, by recent echocardiogram in 07/2016 revealing ejection fraction of 25%. 2. Cardiomyopathy with decreased left ventricular ejection fraction, last ejection fraction approximately 25% by echocardiogram 07/2016. 3. History of automatic implantable cardioverter-defibrillator. 4. History of paroxysmal atrial fibrillation, previously on systemic anticoagulation. 5. Subdural hematomas with midline shift and vasogenic edema- no sig change by serial CT done this AM 6. Encephalopathy. 7. Hypertension. 8. Anemia. 9. Thrombocytopenia 10.Hypernatremia Recc: -Tele -serial ecg's -Follow [facility] recomendations for hypertonic saline/hypoventilation/increased na levels -Follow MS closly -Continue BB/losartan -Continue amio/digoxin -Follow volume status closely and will give gentle lasix diuresis given cxr findings -Follow-up serial CT -[facility] following -Palliative care following/family deciding upon direction of care Problems: Consultation Date/Type/Reason Admit Date/Time September 21, 2016 at 08:29 Initial Consult Date 09/21/16 Type of Consultation: Cardiology Reason for Consultation cardiomyopathy/PPM Referring Provider: LAINEY AGARWAL Exam/Review of Systems Vital Signs Vitals Vital Signs Date Time Temp Pulse Resp B/P Pulse Ox O2 Delivery O2 Flow Rate FiO2 09/28/16 08:00 30 09/28/16 08:00 80 09/28/16 08:00 98.6 18 106/50 98 Mechanical Ventilator Intake and Output 09/27/16 09/27/16 09/28/16 15:00 23:00 07:00 Intake Total 565 ml 420 ml 340 ml Output Total 360 ml 260 ml 205 ml Balance 205 ml 160 ml 135 ml Exam Review of Systems: CONSTITUTIONAL: No fevers, chills. PULMONARY: intubated CARDIOVASCULAR: No obvious chest pain/palpitations GASTROINTESTINAL: No nausea/vomiting. GENITOURINARY: No hematuria/dysuria. MUSCULOSKELETAL: No obvious myagias/arthalgias. PSYCHIATRIC: No documented depression. NEUROLOGIC: No weakness Constitutional: other (encephalopathic) Psych: no complaints Head: normocephalic ENMT: mucosa pink and moist Neck: jvd (9 cm water), supple Respiratory: other (upper airway rhoncherous sounds) Cardiovascular: regular rate and rhythm Gastrointestinal: non-tender, soft Musculoskeletal: muscle tone (normal) Extremities: edema (none) Neurological: other (Encephalopathic) Results Result Diagram: 09/28/16 0608 09/28/16 0920 Results 24 hrs Laboratory Tests Test 09/27/16 12:14 09/27/16 14:23 09/27/16 17:17 09/27/16 20:24 Bedside Glucose 167 158 152 Sodium Level 157 H Test 09/27/16 21:03 09/27/16 21:27 09/28/16 01:23 09/28/16 02:01 Sodium Level 154 H Bedside Glucose 146 162 164 Test 09/28/16 05:00 09/28/16 05:15 09/28/16 06:08 09/28/16 07:00 Bedside Glucose 178 Phosphorus Level 3.0 Magnesium Level 2.7 H White Blood Count 5.6 Red Blood Count 3.30 L Hemoglobin 9.5 L Hematocrit 31.3 L Mean Corpuscular Volume 94.8 Mean Corpuscular Hemoglobin 28.8 L Mean Corpuscular Hemoglobin Concent 30.4 L Red Cell Distribution Width 16.6 H Platelet Count 77 L Mean Platelet Volume Neutrophils % 81.3 H Lymphocytes % 10.1 L Monocytes % 7.6 Eosinophils % 0.5 Basophils % 0.0 Nucleated Red Blood Cells % 0.0 Neutrophils # 4.6 Lymphocytes # 0.6 L Monocytes # 0.4 Eosinophils # 0.0 Basophils # 0.0 Nucleated Red Blood Cells # 0.0 Sodium Level 157 H Potassium Level 3.8 Chloride Level 120 H Carbon Dioxide Level 31 Anion Gap 10 Blood Urea Nitrogen 44 H Creatinine 1.03 H Glucose Level 162 Calcium Level 8.1 L Blood Gas Specimen Source Blood arterial Arterial Blood Date Drawn 09/28/2016 7:20:24 AM Arterial Blood pH (Temp corrected) 7.528 H Arterial Blood pCO2 (Temp correct) 33.6 L Arterial Blood pO2 (Temp corrected) 76.8 L Arterial Blood HCO3 27.3 H Arterial Blood Base Excess 4.6 H Arterial Blood Oxygen Saturation 94.9 L Rajendra Test ACCEPTAB Arterial Blood Gas Puncture Site Right Radial Arterial Blood Carboxyhemoglobin 0.3 Arterial Blood Methemoglobin 0.2 Blood Gas A-a O2 Differential 97.6 H Oxyhemoglobin Percent 94.4 Total Hemoglobin 10.0 L Blood Gas Temperature 37.0 Blood Gas Respiration Rate 18.0 Blood Gas Actual Respiration Rate 18 Blood Gas Modality VENT - AC FiO2 30.0 Blood Gas Tidal Volume 450.0 Blood Gas Low PEEP Setting 5.0 Blood Gas Notified Whom JLD Blood Gas Notified Time 09/28/2016 7:54:01 AM Test 09/28/16 08:14 09/28/16 09:20 Bedside Glucose 177 Sodium Level 158 H Medications Medications Current Medications Ondansetron HCl (Zofran Inj) 4 mg Q6H PRN IV NAUSEA AND/OR VOMITING; Start at 09:00 Acetaminophen (Tylenol Supp) 650 mg Q4H PRN [place] PAIN LEVEL 1-3 OR FEVER Last administered on 09/23/16 08:38; Admin Dose 650 MG; Start 09/21/16 at 09:00 Morphine Sulfate (morphine) 2 mg Q4H PRN IV PAIN LEVEL 7-10; Start 09/21/16 at 09:00 Pantoprazole (Protonix Iv) 40 mg DAILY@06 IV Last administered on 09/28/16 06: 23; Admin Dose 40 MG; Start 09/22/16 at 06:00 Lorazepam 1 mg 1 mg Q2H PRN IV Seizures; Start 09/21/16 at 09:30 Propofol (Diprivan) 100 ml @ 1.95 mls/hr Q12H IV ; Start 09/21/16 at 09:30 Amiodarone HCl (Cordarone) 200 mg DAILY PO Last administered on 09/28/16 08:21 ; Admin Dose 200 MG; Start 09/22/16 at 09:00 Digoxin (Digoxin) 0.125 mg DAILY PO Last administered on 09/28/16 08:24; Admin Dose 0.125 MG; Start 09/22/16 at 09:00 Losartan Potassium (Cozaar) 50 mg DAILY PO Last administered on 09/27/16 08:37 ; Admin Dose 50 MG; Start 09/22/16 at 09:00 Atorvastatin Calcium (Lipitor) 40 mg DAILY@21 PO Last administered on 21:48; Admin Dose 40 MG; Start 09/21/16 at 21:00 Miscellaneous Information 1 ea NOTE XX ; Start 09/21/16 at 10:00 Glucose (Glutose) 15 gm Q15M PRN PO DECREASED GLUCOSE; Start 09/21/16 at 10:00 Glucose (Glutose) 22.5 gm Q15M PRN PO DECREASED GLUCOSE; Start 09/21/16 at 10: 00 Dextrose (D50w Syringe) 25 ml Q15M PRN IV DECREASED GLUCOSE; Start 09/21/16 at 10:00 Dextrose (D50w Syringe) 50 ml Q15M PRN IV DECREASED GLUCOSE; Start 09/21/16 at 10:00 Glucagon (Glucagen) 1 mg Q15M PRN IM DECREASED GLUCOSE; Start 09/21/16 at 10:00 Glucose (Glutose) 15 gm Q15M PRN BUCCAL DECREASED GLUCOSE; Start 09/21/16 at 10 :00 Metoprolol Tartrate (Lopressor) 50 mg BID NGT Last administered on 09/27/16 21 :48; Admin Dose 50 MG; Start 09/22/16 at 10:00 Ferrous Sulfate 300 mg 300 mg BID NGT Last administered on 09/28/16 08:21; Admin Dose 300 MG; Start 09/22/16 at 10:00 Levetiracetam 100 ml @ 400 mls/hr BID IVPB Last administered on 09/28/16 08: 22; Admin Dose 400 MLS/HR; Start 09/24/16 at 14:30 Ceftriaxone Sodium (Rocephin) 50 ml @ 100 mls/hr Q24H IVPB Last administered on 09/27/16 12:13; Admin Dose 100 MLS/HR; Start 09/25/16 at 12:00 Insulin Glargine (Lantus) 10 unit DAILY@20 SC Last administered on 09/27/16 20 :38; Admin Dose 10 UNIT; Start 09/26/16 at 20:00 Diagnostic Test (Pha) 1 ea 1 ea 02 XX Last administered on 09/28/16 02:00; Admin Dose 1 EA; Start 09/28/16 at 02:00 Sodium Chloride (NS) 1,000 ml @ 20 mls/hr Q24H IV Last administered on 12:13; Admin Dose 20 MLS/HR; Start 09/27/16 at 11:30 Insulin Aspart (Novolog Insulin Pen) (Adult SC Insulin - Moder... Q4 SC Last administered on 09/28/16 08:17; Admin Dose 2 UNIT; Start 09/27/16 at 13:00 Desmopressin Acetate (Ddavp) 2 mcg BID SC ; Start 09/28/16 at 11:30 MATHEW AMADO September 28, 2016 11:16
[2016-09-28] MEDS ORDERED: FUROSEMIDE 20 MG INJ IV ONE (11:30)
[2016-09-28] MEDS: SOD CHLORIDE 0.9% 1,000 ML IV SCH (11:30)
[2016-09-28] MEDS: DESMOPRESSIN 4 MCG INJ SC SCH ×2 (12:41→21:52)
[2016-09-28] MEDS: CEFTRIAXONE 1 GM/50 ML (PMX) 50 ML IVPB SCH (12:41)
--- NOTE | 2016-09-28 12:56 | PN ---
Date/Time of Note Date/Time of Note DATE: 09/28/16 TIME: 12:51 Assessment/Plan VTE Prophylaxis VTE Prophylaxis Intervention: SCD's VTE Contraindication Reason: hemorrhagic cerebral infarction Lines/Catheters IV Catheter Type (from Nrs): Peripheral IV Urinary Cath still in place: Yes Reason Cath still needed: other (indicate) Assessment/Plan Assessment/Plan 1. Intracranial bleeding including intraparenchymal hematoma and bilateral subdural hematomas with midline shift. 2. Accelerated hypertension. Continue antihypertensives as per cardiology recommendations. 3. Atrial fibrillation. The patient's heart rate is currently controlled. The patient will be continued on amiodarone and digoxin. 4. Cardiomyopathy with ejection fraction of 30% with stage III and stage IV diastolic dysfunction. The patient will be continued on beta blockers and ARB' s. 5. Hypothyroidism. The patient will be continued on Synthroid. 6. Hyperlipidemia. Continue statins. 7. Type 2 diabetes mellitus. Continue SSI. 8. Normocytic anemia. The patient has a history of iron deficiency. Continue iron supplements. 9. Thrombocytopenia. The patient will be monitored for any bleeding. Avoid any antiplatelet or anticoagulants. 10. Sepsis with underlying bacteremia. Continue antibiotics as per infectious diseases. 11. Fluids, electrolytes, and nutrition. Tube feedings. 12. DVT prophylaxis. Bilateral sequential compression devices. 13. Gastrointestinal prophylaxis. Proton pump inhibitors. 14. Plan. * Continue ICU monitoring. * Continue ICP lowering measures including elevation of bed, hyperventilation, and keeping the sodium high. * Replete potassium. * Adjust insulin and tube feeds * Continue to avoid ASA and anticoagulation * Continue seizure precautions Poor prognosis. Palliative Care has been consulted. CRITICAL CARE TIME: >35 mins Exam/Review of Systems Vital Signs Vitals Vital Signs Date Time Temp Pulse Resp B/P Pulse Ox O2 Delivery O2 Flow Rate FiO2 09/28/16 12:00 98.7 80 18 93/50 97 Mechanical Ventilator 09/28/16 11:40 30 Intake and Output 09/27/16 09/27/16 09/28/16 15:00 23:00 07:00 Intake Total 565 ml 420 ml 340 ml Output Total 360 ml 260 ml 205 ml Balance 205 ml 160 ml 135 ml Exam GENERAL: This is an elderly female patient lying in bed, orally intubated and mechanically ventilated.but on no sedation HEENT: Head normocephalic and atraumatic. Eyes: Anicteric sclerae. Conjunctivae clear. Pupils are slightly sure reactive bilaterally. ENT: Nasal septum is midline. Oral mucosa is dry. Orally intubated. NECK: Supple. No JVD noticed. RESPIRATORY: Bilaterally diminished breath sounds. No adventitious breath sounds heard. On AC mode ventilation. CARDIAC: Regular rate and rhythm. S1, S2 heard. Grade III/ systolic ejection murmur. ABDOMEN: Soft, scaphoid. Nontender. Bowel sounds hypoactive in all 4 quadrants. GENITOURINARY: The patient has a Macedo catheter in place. EXTREMITIES: No cyanosis, no clubbing, no edema. Peripheral pulses are palpable. NEUROLOGIC: The patient is unresponsive. Has some purposeful movement of the left upper extremity. Withdrawal to pain of bilateral lower extremities and right upper extremity. Results Result Diagram: 09/28/16 0608 09/28/16 0920 Results 24 hrs Laboratory Tests Test 09/27/16 14:23 09/27/16 17:17 09/27/16 20:24 09/27/16 21:03 Sodium Level 157 H 154 H Bedside Glucose 158 152 Test 09/27/16 21:27 09/28/16 01:23 09/28/16 02:01 09/28/16 05:00 Bedside Glucose 146 162 164 178 Test 09/28/16 05:15 09/28/16 06:08 09/28/16 07:00 09/28/16 08:14 Phosphorus Level 3.0 Magnesium Level 2.7 H White Blood Count 5.6 Red Blood Count 3.30 L Hemoglobin 9.5 L Hematocrit 31.3 L Mean Corpuscular Volume 94.8 Mean Corpuscular Hemoglobin 28.8 L Mean Corpuscular Hemoglobin Concent 30.4 L Red Cell Distribution Width 16.6 H Platelet Count 77 L Mean Platelet Volume Neutrophils % 81.3 H Lymphocytes % 10.1 L Monocytes % 7.6 Eosinophils % 0.5 Basophils % 0.0 Nucleated Red Blood Cells % 0.0 Neutrophils # 4.6 Lymphocytes # 0.6 L Monocytes # 0.4 Eosinophils # 0.0 Basophils # 0.0 Nucleated Red Blood Cells # 0.0 Sodium Level 157 H Potassium Level 3.8 Chloride Level 120 H Carbon Dioxide Level 31 Anion Gap 10 Blood Urea Nitrogen 44 H Creatinine 1.03 H Glucose Level 162 Calcium Level 8.1 L Blood Gas Specimen Source Blood arterial Arterial Blood Date Drawn 09/28/2016 7:20:24 AM Arterial Blood pH (Temp corrected) 7.528 H Arterial Blood pCO2 (Temp correct) 33.6 L Arterial Blood pO2 (Temp corrected) 76.8 L Arterial Blood HCO3 27.3 H Arterial Blood Base Excess 4.6 H Arterial Blood Oxygen Saturation 94.9 L Rajendra Test ACCEPTAB Arterial Blood Gas Puncture Site Right Radial Arterial Blood Carboxyhemoglobin 0.3 Arterial Blood Methemoglobin 0.2 Blood Gas A-a O2 Differential 97.6 H Oxyhemoglobin Percent 94.4 Total Hemoglobin 10.0 L Blood Gas Temperature 37.0 Blood Gas Respiration Rate 18.0 Blood Gas Actual Respiration Rate 18 Blood Gas Modality VENT - AC FiO2 30.0 Blood Gas Tidal Volume 450.0 Blood Gas Low PEEP Setting 5.0 Blood Gas Notified Whom JLD Blood Gas Notified Time 09/28/2016 7:54:01 AM Bedside Glucose 177 Test 09/28/16 09:20 Sodium Level 158 H Medications Medications Current Medications Ondansetron HCl (Zofran Inj) 4 mg Q6H PRN IV NAUSEA AND/OR VOMITING; Start at 09:00 Acetaminophen (Tylenol Supp) 650 mg Q4H PRN [place] PAIN LEVEL 1-3 OR FEVER Last administered on 09/23/16 08:38; Admin Dose 650 MG; Start 09/21/16 at 09:00 Morphine Sulfate (morphine) 2 mg Q4H PRN IV PAIN LEVEL 7-10; Start 09/21/16 at 09:00 Pantoprazole (Protonix Iv) 40 mg DAILY@06 IV Last administered on 09/28/16 06: 23; Admin Dose 40 MG; Start 09/22/16 at 06:00 Lorazepam 1 mg 1 mg Q2H PRN IV Seizures; Start 09/21/16 at 09:30 Propofol (Diprivan) 100 ml @ 1.95 mls/hr Q12H IV ; Start 09/21/16 at 09:30 Amiodarone HCl (Cordarone) 200 mg DAILY PO Last administered on 09/28/16 08:21 ; Admin Dose 200 MG; Start 09/22/16 at 09:00 Digoxin (Digoxin) 0.125 mg DAILY PO Last administered on 09/28/16 08:24; Admin Dose 0.125 MG; Start 09/22/16 at 09:00 Losartan Potassium (Cozaar) 50 mg DAILY PO Last administered on 09/27/16 08:37 ; Admin Dose 50 MG; Start 09/22/16 at 09:00 Atorvastatin Calcium (Lipitor) 40 mg DAILY@21 PO Last administered on 21:48; Admin Dose 40 MG; Start 09/21/16 at 21:00 Miscellaneous Information 1 ea NOTE XX ; Start 09/21/16 at 10:00 Glucose (Glutose) 15 gm Q15M PRN PO DECREASED GLUCOSE; Start 09/21/16 at 10:00 Glucose (Glutose) 22.5 gm Q15M PRN PO DECREASED GLUCOSE; Start 09/21/16 at 10: 00 Dextrose (D50w Syringe) 25 ml Q15M PRN IV DECREASED GLUCOSE; Start 09/21/16 at 10:00 Dextrose (D50w Syringe) 50 ml Q15M PRN IV DECREASED GLUCOSE; Start 09/21/16 at 10:00 Glucagon (Glucagen) 1 mg Q15M PRN IM DECREASED GLUCOSE; Start 09/21/16 at 10:00 Glucose (Glutose) 15 gm Q15M PRN BUCCAL DECREASED GLUCOSE; Start 09/21/16 at 10 :00 Metoprolol Tartrate (Lopressor) 50 mg BID NGT Last administered on 09/27/16 21 :48; Admin Dose 50 MG; Start 09/22/16 at 10:00 Ferrous Sulfate 300 mg 300 mg BID NGT Last administered on 09/28/16 08:21; Admin Dose 300 MG; Start 09/22/16 at 10:00 Levetiracetam 100 ml @ 400 mls/hr BID IVPB Last administered on 09/28/16 08: 22; Admin Dose 400 MLS/HR; Start 09/24/16 at 14:30 Ceftriaxone Sodium (Rocephin) 50 ml @ 100 mls/hr Q24H IVPB Last administered on 09/28/16 12:41; Admin Dose 100 MLS/HR; Start 09/25/16 at 12:00 Insulin Glargine (Lantus) 10 unit DAILY@20 SC Last administered on 09/27/16 20 :38; Admin Dose 10 UNIT; Start 09/26/16 at 20:00 Diagnostic Test (Pha) 1 ea 1 ea 02 XX Last administered on 09/28/16 02:00; Admin Dose 1 EA; Start 09/28/16 at 02:00 Sodium Chloride (NS) 1,000 ml @ 20 mls/hr Q24H IV Last administered on 12:13; Admin Dose 20 MLS/HR; Start 09/27/16 at 11:30 Insulin Aspart (Novolog Insulin Pen) (Adult SC Insulin - Moder... Q4 SC Last administered on 09/28/16 08:17; Admin Dose 2 UNIT; Start 09/27/16 at 13:00 Desmopressin Acetate (Ddavp) 2 mcg BID SC Last administered on 09/28/16 12:41 ; Admin Dose 2 MCG; Start 09/28/16 at 11:30 Procedures Procedures PROCEDURE: XR Chest. CLINICAL INDICATION: CHF TECHNIQUE: An AP view of the chest was obtained. COMPARISON: Chest x-ray dated 09/27/2016 FINDINGS: The endotracheal tube tip is approximately 4.6 cm above the luz marina. The tip of the enteric tube extends below the left diaphragm. There is a left subclavian single lead AICD. There is prominence of the interstitial and central pulmonary vascular markings with small bilateral pleural effusions. No focal airspace opacification or pneumothorax is seen. The cardiomediastinal silhouette is mildly enlarged . Calcifications are seen within the aortic arch. The osseous structures demonstrate senescent changes. IMPRESSION: 1. Findings suggestive of pulmonary vascular congestion/interstitial edema with small bilateral pleural effusions. Overall, no significant interval change. 2. Mild cardiomegaly and aortic atherosclerosis. 3. Tubes and lines, as described above. RPTAT: .Agnieszka Gómez MD, Date Time Electronically viewed and signed by .Agnieszka Gómez MD, on 09/28/2016 07 :00 .G/ CC: MIKAYLA PISANO MD, [facility] PROCEDURE: CTA Head and Neck. CLINICAL INDICATION: ? AVM, ANEURYSM OR OTHER VASCULAR ABNORMALITY. Intracranial bleed TECHNIQUE: Continues axial 0.63 mm sections were obtained through the head and neck with the use of 85 cc of Visipaque 320 nonionic intravenous contrast material. Coronal and sagittal as well as maximal intensity projection reformations were obtained. 3-D re-formations were performed as well. The images were reviewed on a PACS workstation.The calculated radiation dose measures 646 mGy centimeters. The CTDI measures 16 mGy COMPARISON: 09/21/2016 CT angiogram head FINDINGS: NECK: The aortic arch is normal appearance. The origins of the great vessels are intact. The brachiocephalic artery appears unremarkable. The right common carotid artery appears normal, without stenosis or occlusion. The right carotid bifurcation demonstrates mild partially calcified plaque, without significant stenosis. The right internal carotid artery flows through normally to the intracranial segment. The left common carotid artery appears normal, without stenosis or occlusion. The left carotid bifurcation demonstrates irregular contour, possibly related to prior endarterectomy, without significant stenosis. The left internal carotid artery flows through normally to the intracranial segment. The bilateral vertebral arteries are identified, without stenosis or occlusion. There is a heterogeneous multinodular appearance of the thyroid gland, larger on the right. There are bilateral pleural effusions. HEAD: The petrous right internal carotid artery appears normally patent. The cavernous and supraclinoid right internal carotid artery segments demonstrate prominent calcification, with moderate to severe scattered areas of narrowing.. The right anterior and middle cerebral arteries are unremarkable. The petrous left internal carotid artery appears normally patent. The cavernous and supraclinoid left internal carotid artery segments demonstrate prominent calcification, with scattered moderate areas of narrowing.. The left anterior and middle cerebral arteries are unremarkable. The anterior communicating artery is unremarkable. The bilateral posterior communicating arteries are not well seen, likely small in size or hypoplastic. There is no evidence of aneurysm or vascular malformation involving the anterior circulation. There is mild to moderate of areas of irregularity and narrowing through the right vertebral artery intracranial V4 segment. The left vertebral artery is dominant, and normally patent. There is mild calcification and mild narrowing involving the proximal basilar artery. The superior cerebellar arteries are unremarkable. Bilateral posterior cerebral arteries are normally patent. There is no aneurysm or vascular malformation involving the posterior circulation. Again identified is a right frontal parenchymal hematoma, up to least 4.1 cm in size, with adjacent vasogenic edema. A previously noted focus of apparent active contrast extravasation on the prior examination along the anterior margin of the hematoma is no longer visualized. There is bilateral subdural hematomas. IMPRESSION: 1. No significant stenosis of the bilateral cervical common or internal carotid arteries, or bilateral vertebral arteries. Mild calcified plaque at the right carotid bifurcation. 2. Prominent calcification with moderate to severe areas of narrowing through the right cavernous and supraclinoid internal carotid artery. Prominent calcification and scattered areas of moderate narrowing through the left cavernous and supraclinoid internal carotid artery. 3. Mild to moderate narrowing through the right vertebral artery intracranial V4 segment, and mild narrowing of the proximal basilar artery. 4. Right frontal parenchymal hematoma again identified. Previously seen anterior contrast extravasation is no longer seen. No large vascular malformation or aneurysm is presently identified in the region. Bilateral subdural hematomas. 5. Heterogeneous multinodular thyroid gland. Bilateral pleural effusions. Measurements of the cervical internal carotid artery stenosis were peformed according to NASCET criteria. RPTAT: DD .Fox Jhaveri MD, Date Time Electronically viewed and signed by .Fox Jhaveri MD, MD on 09/27/2016 11:49 .T/ CC: MAGALY DUNLAP MD, B[place]AT[place] M. September 28, 2016 12:56
--- NOTE | 2016-09-28 13:05 | PN ---
DATE: 09/28/2016 INFECTIOUS DISEASE PROGRESS NOTE SUBJECTIVE: No events overnight. No fevers. The patient remains comfortable on the vent. Temperature 98.7, pulse 80, respirations 18, blood pressure 93/50, saturations 97%. WBC 5.6, platel et count 77. BUN 44, creatinine 1.03. ANTIMICROBIALS: Rocephin. INDWELLINGS: Endotracheal tube, NG tube, Macedo catheter, left subclavian, AICD. PHYSICAL EXAMINATION: GENERAL: This is a well-developed, fragile, elderly woman, who is in no distress. HEENT: Head atraumatic, normocephalic. Sclerae anicteric. Buccal mucosa dry. NECK: Supple, trachea midline. CHEST: Chest rise is symmetrical. Breath sounds diminished to the bases. HEART: S1, S2. ABDOMEN: Soft, bowel tones present. EXTREMITIES: Without cyanosis. ASSESSMENT: 1. Streptococcal bacteremia. 2. Acute respiratory failure. 3. Acute encephalopathy secondary to acute intracranial hemorrhage. 4. History of congestive heart failure and atrial fibrillation. 5. Diabetes. 6. Cardiomyopathy. PLAN: The patient remains stable. Repeat blood cultures negative. She is completing antibiotics. FULL CODE now, pending family decision regarding future plans of care. Dictated By: ANGELINA GAMEZ STUDIO POTTER for ARMAND ALVARES/JARRELL Conf#: [id number] DID#: [id number]
--- NOTE | 2016-09-28 21:28 | CONS ---
Date/Time of Note Date/Time of Note DATE: 09/28/16 TIME: 21:18 Assessment/Plan Assessment/Plan Problems: (1) Cerebral hemorrhage Status: Acute Comment: Stable neurologically with present brainstem reflexes and with decent motor response L but remains deeply obtunded. No ongoing seizure activity on EEG. High serum sodium, which is likely appropriately reactive to ICH. No evidence DI. Correction of hypernatremia would be expected to cause increase in brain edema and thus ICP. OK to switch low rate IV to 1/2NS, but would not bolus and would not use any free H2O. Continue to follow serum Na+. I had ordered catheter angiogram, but CTA done. The CTA no longer shows area suggestive of vascular malformation or perhaps mycotic aneurysm, but study is not helpful in determining presence or absence of vascular anatomy. Certainly no surgical intervention could be considered without catheter angiogram, and other decisions also depend upon knowing whether there is vascular anomaly. Difficult to even know how to approach question of further care with family without study. D/W Dr Kim, and this will be done when angio suite becomes available. Consultation Date/Type/Reason Admit Date/Time September 21, 2016 at 08:29 Initial Consult Date 09/21/16 Type of Consultation: Cardiology Referring Provider: LAINEY AGARWAL 24 HR Interval Summary Subjective hx not possible: pt non-verbal, pt critical Exam/Review of Systems Vital Signs Vitals Vital Signs Date Time Temp Pulse Resp B/P Pulse Ox O2 Delivery O2 Flow Rate FiO2 09/28/16 20:00 30 09/28/16 20:00 98.4 80 18 98/50 97 Mechanical Ventilator Intake and Output 09/27/16 09/27/16 09/28/16 15:00 23:00 07:00 Intake Total 565 ml 420 ml 360 ml Output Total 360 ml 260 ml 205 ml Balance 205 ml 160 ml 155 ml Exam ENMT: intubated Neurological: other (pupils 3mm reactive to light bilat; corneals present bilat ; cough present; no eye opening; localizes with LUE; very mild flexion to deep stimulation R but also moves head and LUE to right stim) Skin: ecchymosis Results I had ordered catheter angiogram, but CTA done. Area of abnormal contrast overlying intraparenchymal clot no longer seen. Otherwise stable. EEG report reviewed. No status. No obvious epileptiform activity. Result Diagram: 09/28/16 0608 09/28/16 0920 Results 24 hrs Laboratory Tests Test 09/27/16 21:27 09/28/16 01:23 09/28/16 02:01 09/28/16 05:00 Bedside Glucose 146 162 164 178 Test 09/28/16 05:15 09/28/16 06:08 09/28/16 07:00 09/28/16 08:14 Phosphorus Level 3.0 Magnesium Level 2.7 H White Blood Count 5.6 Red Blood Count 3.30 L Hemoglobin 9.5 L Hematocrit 31.3 L Mean Corpuscular Volume 94.8 Mean Corpuscular Hemoglobin 28.8 L Mean Corpuscular Hemoglobin Concent 30.4 L Red Cell Distribution Width 16.6 H Platelet Count 77 L Mean Platelet Volume Neutrophils % 81.3 H Lymphocytes % 10.1 L Monocytes % 7.6 Eosinophils % 0.5 Basophils % 0.0 Nucleated Red Blood Cells % 0.0 Neutrophils # 4.6 Lymphocytes # 0.6 L Monocytes # 0.4 Eosinophils # 0.0 Basophils # 0.0 Nucleated Red Blood Cells # 0.0 Sodium Level 157 H Potassium Level 3.8 Chloride Level 120 H Carbon Dioxide Level 31 Anion Gap 10 Blood Urea Nitrogen 44 H Creatinine 1.03 H Glucose Level 162 Calcium Level 8.1 L Blood Gas Specimen Source Blood arterial Arterial Blood Date Drawn 09/28/2016 7:20:24 AM Arterial Blood pH (Temp corrected) 7.528 H Arterial Blood pCO2 (Temp correct) 33.6 L Arterial Blood pO2 (Temp corrected) 76.8 L Arterial Blood HCO3 27.3 H Arterial Blood Base Excess 4.6 H Arterial Blood Oxygen Saturation 94.9 L Rajendra Test ACCEPTAB Arterial Blood Gas Puncture Site Right Radial Arterial Blood Carboxyhemoglobin 0.3 Arterial Blood Methemoglobin 0.2 Blood Gas A-a O2 Differential 97.6 H Oxyhemoglobin Percent 94.4 Total Hemoglobin 10.0 L Blood Gas Temperature 37.0 Blood Gas Respiration Rate 18.0 Blood Gas Actual Respiration Rate 18 Blood Gas Modality VENT - AC FiO2 30.0 Blood Gas Tidal Volume 450.0 Blood Gas Low PEEP Setting 5.0 Blood Gas Notified Whom JLD Blood Gas Notified Time 09/28/2016 7:54:01 AM Bedside Glucose 177 Test 09/28/16 09:20 09/28/16 12:51 09/28/16 17:22 Sodium Level 158 H Bedside Glucose 143 139 Medications Medications Current Medications Ondansetron HCl (Zofran Inj) 4 mg Q6H PRN IV NAUSEA AND/OR VOMITING; Start at 09:00 Acetaminophen (Tylenol Supp) 650 mg Q4H PRN [place] PAIN LEVEL 1-3 OR FEVER Last administered on 09/23/16 08:38; Admin Dose 650 MG; Start 09/21/16 at 09:00 Morphine Sulfate (morphine) 2 mg Q4H PRN IV PAIN LEVEL 7-10; Start 09/21/16 at 09:00 Pantoprazole (Protonix Iv) 40 mg DAILY@06 IV Last administered on 09/28/16 06: 23; Admin Dose 40 MG; Start 09/22/16 at 06:00 Lorazepam 1 mg 1 mg Q2H PRN IV Seizures; Start 09/21/16 at 09:30 Propofol (Diprivan) 100 ml @ 1.95 mls/hr Q12H IV ; Start 09/21/16 at 09:30 Amiodarone HCl (Cordarone) 200 mg DAILY PO Last administered on 09/28/16 08:21 ; Admin Dose 200 MG; Start 09/22/16 at 09:00 Digoxin (Digoxin) 0.125 mg DAILY PO Last administered on 09/28/16 08:24; Admin Dose 0.125 MG; Start 09/22/16 at 09:00 Losartan Potassium (Cozaar) 50 mg DAILY PO Last administered on 09/27/16 08:37 ; Admin Dose 50 MG; Start 09/22/16 at 09:00 Atorvastatin Calcium (Lipitor) 40 mg DAILY@21 PO Last administered on 21:48; Admin Dose 40 MG; Start 09/21/16 at 21:00 Miscellaneous Information 1 ea NOTE XX ; Start 09/21/16 at 10:00 Glucose (Glutose) 15 gm Q15M PRN PO DECREASED GLUCOSE; Start 09/21/16 at 10:00 Glucose (Glutose) 22.5 gm Q15M PRN PO DECREASED GLUCOSE; Start 09/21/16 at 10: 00 Dextrose (D50w Syringe) 25 ml Q15M PRN IV DECREASED GLUCOSE; Start 09/21/16 at 10:00 Dextrose (D50w Syringe) 50 ml Q15M PRN IV DECREASED GLUCOSE; Start 09/21/16 at 10:00 Glucagon (Glucagen) 1 mg Q15M PRN IM DECREASED GLUCOSE; Start 09/21/16 at 10:00 Glucose (Glutose) 15 gm Q15M PRN BUCCAL DECREASED GLUCOSE; Start 09/21/16 at 10 :00 Metoprolol Tartrate (Lopressor) 50 mg BID NGT Last administered on 09/27/16 21 :48; Admin Dose 50 MG; Start 09/22/16 at 10:00 Ferrous Sulfate 300 mg 300 mg BID NGT Last administered on 09/28/16 08:21; Admin Dose 300 MG; Start 09/22/16 at 10:00 Levetiracetam 100 ml @ 400 mls/hr BID IVPB Last administered on 09/28/16 08: 22; Admin Dose 400 MLS/HR; Start 09/24/16 at 14:30 Ceftriaxone Sodium (Rocephin) 50 ml @ 100 mls/hr Q24H IVPB Last administered on 09/28/16 12:41; Admin Dose 100 MLS/HR; Start 09/25/16 at 12:00 Diagnostic Test (Pha) 1 ea 1 ea 02 XX Last administered on 09/28/16 02:00; Admin Dose 1 EA; Start 09/28/16 at 02:00 Sodium Chloride (NS) 1,000 ml @ 20 mls/hr Q24H IV Last administered on 12:13; Admin Dose 20 MLS/HR; Start 09/27/16 at 11:30 Insulin Aspart (Novolog Insulin Pen) (Adult SC Insulin - Moder... Q4 SC Last administered on 09/28/16 12:53; Admin Dose 2 UNIT; Start 09/27/16 at 13:00 Desmopressin Acetate (Ddavp) 2 mcg BID SC Last administered on 09/28/16 12:41 ; Admin Dose 2 MCG; Start 09/28/16 at 11:30 Insulin Glargine (Lantus) 15 unit DAILY@20 SC ; Start 09/28/16 at 20:00 MAGALY DUNLAP MD September 28, 2016 21:28
[2016-09-28] MEDS: ATORVASTATIN 40 MG TAB PO SCH (21:52)
[2016-09-28] MEDS: INSULIN GLARGINE [LANtus] 3 ML PEN SC SCH (21:56)
[2016-09-29] VITALS (36 sets, daily range): BP systolic 80–124; BP diastolic 47–69; PULSE 80–81; RESP 18
[2016-09-29] MEDS: Insulin NOVOLOG SS MODERATE Algorithm(NPO/TPN/ENTERAL FEEDS) SC SCH ×6 (01:00→20:27)
[2016-09-29] MEDS: ACCU-CHEK XX SCH (02:22)
[2016-09-29] MEDS: PANTOPRAZOLE 40 MG INJ IV SCH (05:58)
[2016-09-29] MEDS: LEVOTHYROXINE 100 MCG TAB PO SCH (06:00)
--- NOTE | 2016-09-29 08:34 | CONS ---
Date/Time of Note Date/Time of Note DATE: 09/29/16 TIME: 08:31 Assessment/Plan Assessment/Plan Additional Assessment/Plan Ventilator setting; AC of 18, tidal volume 450, PEEP of 5, 30% FiO2. Assessment recommendations; 1. Patient admitted for intracranial bleed leading to respiratory failure with profound mental unresponsiveness. 2. Vertebral other comorbidities including hypertension, diabetes, hypertension. 3. Gram-negative bacteremia. 4. Cardiac arrhythmia, status post pacemaker placement in the past. 5. Hypernatremia. 6. Thrombocytopenia. 7. Mild CHF. Continue current supportive care. Awaiting labs from this morning. Further recommendations to be made once lab work is obtained. Prognosis appears very poor. Will obtain follow-up chest x-ray. Consultation Date/Type/Reason Admit Date/Time September 21, 2016 at 08:29 Initial Consult Date 09/21/16 Type of Consultation: Pulmonary/critical care Referring Provider: LAINEY AGARWAL 24 HR Interval Summary Free Text/Dictation Patient's condition remains critical. Remains profoundly unresponsive. Patient however has remained hemodynamically stable. No seizure activity noted. General exam; elderly lady, orally intubated, unresponsive. Currently in no distress. Exam/Review of Systems Vital Signs Vitals Vital Signs Date Time Temp Pulse Resp B/P Pulse Ox O2 Delivery O2 Flow Rate FiO2 09/29/16 06:00 80 18 95/55 97 09/29/16 05:34 30 09/29/16 04:00 98.0 09/28/16 20:00 Mechanical Ventilator Intake and Output 09/28/16 09/28/16 09/29/16 15:00 23:00 07:00 Intake Total 1010 ml 600 ml 280 ml Output Total 700 ml 405 ml 195 ml Balance 310 ml 195 ml 85 ml Exam HEENT examination; supple neck, no JVD. No lymphadenopathy. Midline trachea. No thyromegaly. Orally intubated. Patient is edentulous. Has bilateral intraocular lens implants. Chest examined; diminished breath on lung bases bilaterally. Upper lobes are clear. S1-S2 audible. No murmurs. Paced rhythm. Abdomen examination; soft, nondistended. No organomegaly. Bowel sounds audible. Extremity examination; no peripheral edema. Pulses 1+ bilaterally. [employer] examination; patient remains unresponsive. Results Result Diagram: 09/28/16 0608 09/28/160 Results 24 hrs Laboratory Tests Test 09/28/16 09:20 09/28/16 12:51 09/28/16 17:22 09/28/16 21:20 Sodium Level 158 H 159 H Bedside Glucose 143 139 Test 09/28/16 22:05 09/29/16 00:40 09/29/16 05:57 Bedside Glucose 156 136 149 Medications Medications Current Medications Ondansetron HCl (Zofran Inj) 4 mg Q6H PRN IV NAUSEA AND/OR VOMITING; Start at 09:00 Acetaminophen (Tylenol Supp) 650 mg Q4H PRN [place] PAIN LEVEL 1-3 OR FEVER Last administered on 09/23/16 08:38; Admin Dose 650 MG; Start 09/21/16 at 09:00 Morphine Sulfate (morphine) 2 mg Q4H PRN IV PAIN LEVEL 7-10; Start 09/21/16 at 09:00 Pantoprazole (Protonix Iv) 40 mg DAILY@06 IV Last administered on 09/29/16 05: 58; Admin Dose 40 MG; Start 09/22/16 at 06:00 Lorazepam 1 mg 1 mg Q2H PRN IV Seizures; Start 09/21/16 at 09:30 Propofol (Diprivan) 100 ml @ 1.95 mls/hr Q12H IV ; Start 09/21/16 at 09:30 Amiodarone HCl (Cordarone) 200 mg DAILY PO Last administered on 09/28/16 08:21 ; Admin Dose 200 MG; Start 09/22/16 at 09:00 Digoxin (Digoxin) 0.125 mg DAILY PO Last administered on 09/28/16 08:24; Admin Dose 0.125 MG; Start 09/22/16 at 09:00 Losartan Potassium (Cozaar) 50 mg DAILY PO Last administered on 09/27/16 08:37 ; Admin Dose 50 MG; Start 09/22/16 at 09:00 Atorvastatin Calcium (Lipitor) 40 mg DAILY@21 PO Last administered on 21:52; Admin Dose 40 MG; Start 09/21/16 at 21:00 Miscellaneous Information 1 ea NOTE XX ; Start 09/21/16 at 10:00 Glucose (Glutose) 15 gm Q15M PRN PO DECREASED GLUCOSE; Start 09/21/16 at 10:00 Glucose (Glutose) 22.5 gm Q15M PRN PO DECREASED GLUCOSE; Start 09/21/16 at 10: 00 Dextrose (D50w Syringe) 25 ml Q15M PRN IV DECREASED GLUCOSE; Start 09/21/16 at 10:00 Dextrose (D50w Syringe) 50 ml Q15M PRN IV DECREASED GLUCOSE; Start 09/21/16 at 10:00 Glucagon (Glucagen) 1 mg Q15M PRN IM DECREASED GLUCOSE; Start 09/21/16 at 10:00 Glucose (Glutose) 15 gm Q15M PRN BUCCAL DECREASED GLUCOSE; Start 09/21/16 at 10 :00 Metoprolol Tartrate (Lopressor) 50 mg BID NGT Last administered on 09/28/16 21 :52; Admin Dose 50 MG; Start 09/22/16 at 10:00 Ferrous Sulfate 300 mg 300 mg BID NGT Last administered on 09/28/16 21:52; Admin Dose 300 MG; Start 09/22/16 at 10:00 Levetiracetam 100 ml @ 400 mls/hr BID IVPB Last administered on 09/28/16 21: 51; Admin Dose 400 MLS/HR; Start 09/24/16 at 14:30 Ceftriaxone Sodium (Rocephin) 50 ml @ 100 mls/hr Q24H IVPB Last administered on 09/28/16 12:41; Admin Dose 100 MLS/HR; Start 09/25/16 at 12:00 Diagnostic Test (Pha) 1 ea 1 ea 02 XX Last administered on 09/29/16 02:22; Admin Dose 1 EA; Start 09/28/16 at 02:00 Sodium Chloride (NS) 1,000 ml @ 20 mls/hr Q24H IV Last administered on 12:13; Admin Dose 20 MLS/HR; Start 09/27/16 at 11:30 Insulin Aspart (Novolog Insulin Pen) (Adult SC Insulin - Moder... Q4 SC Last administered on 09/29/16 05:59; Admin Dose 2 UNIT; Start 09/27/16 at 13:00 Desmopressin Acetate (Ddavp) 2 mcg BID SC Last administered on 09/28/16 21:52 ; Admin Dose 2 MCG; Start 09/28/16 at 11:30 Insulin Glargine (Lantus) 15 unit DAILY@20 SC Last administered on 09/28/16t 21 :56; Admin Dose 15 UNIT; Start 09/28/16 at 20:00 JAY LEONARDO September 29, 2016 08:34
[2016-09-29] MEDS: METOPROLOL 50 MG TAB NGT SCH ×2 (08:56→21:00)
[2016-09-29] MEDS: LOSARTAN 50 MG TAB PO SCH (08:57)
[2016-09-29] MEDS: FERROUS SULFATE 60 MG/ML 5ML CUP NGT SCH ×2 (09:29→20:22)
[2016-09-29] MEDS: LEVETIRACETAM 500 MG (PMX) 100 ML IVPB SCH ×2 (09:29→20:22)
[2016-09-29] MEDS: AMIODARONE 200 MG TAB PO SCH (09:30)
[2016-09-29] MEDS: PROPOFOL 100 ML IV SCH ×2 (09:30→20:36)
[2016-09-29] MEDS: DIGOXIN 0.125 MG TAB PO SCH (09:30)
[2016-09-29] MEDS: DESMOPRESSIN 4 MCG INJ SC SCH ×2 (09:30→20:31)
--- NOTE | 2016-09-29 11:02 | CONS ---
Date/Time of Note Date/Time of Note DATE: 09/29/16 TIME: 10:58 Assessment/Plan Assessment/Plan Chief Complaint/Hosp Course IMPRESSION: 1. Congestive heart failure exacerbation, systolic, acute on chronic, by recent echocardiogram in 07/2016 revealing ejection fraction of 25%. 2. Cardiomyopathy with decreased left ventricular ejection fraction, last ejection fraction approximately 25% by echocardiogram 07/2016. 3. History of automatic implantable cardioverter-defibrillator. 4. History of paroxysmal atrial fibrillation, previously on systemic anticoagulation. 5. Subdural hematomas with midline shift and vasogenic edema- no sig change by serial CT done this AM 6. Encephalopathy. 7. Hypertension. 8. Anemia. 9. Thrombocytopenia 10.Hypernatremia Recc: -Tele -serial ecg's -Follow [facility] recomendations for hypertonic saline/hypoventilation/increased na levels -Follow MS closly -Continue BB/losartan -Continue amio/digoxin -Follow volume status closely -Follow-up serial CT -[facility] following -Palliative care following/family deciding upon direction of care Problems: Consultation Date/Type/Reason Admit Date/Time September 21, 2016 at 08:29 Initial Consult Date 09/21/16 Type of Consultation: Cardiology Reason for Consultation cardiomyopathy Referring Provider: LAINEY AGARWAL Exam/Review of Systems Vital Signs Vitals Vital Signs Date Time Temp Pulse Resp B/P Pulse Ox O2 Delivery O2 Flow Rate FiO2 09/29/16 08:00 80 09/29/16 08:00 97.5 18 87/52 98 Mechanical Ventilator 09/29/16 05:34 30 Intake and Output 09/28/16 09/28/16 09/29/16 14:59 22:59 06:59 Intake Total 930 ml 660 ml 320 ml Output Total 450 ml 655 ml 195 ml Balance 480 ml 5 ml 125 ml Exam Review of Systems: CONSTITUTIONAL: No fevers, chills. PULMONARY: intubated CARDIOVASCULAR: No chest pain/palpitations GASTROINTESTINAL: No nausea/vomiting. GENITOURINARY: No hematuria/dysuria. MUSCULOSKELETAL: No myagias/arthalgias. PSYCHIATRIC: The patient denies depression. NEUROLOGIC: encephalopathy Constitutional: other (encephalopathic) Psych: no complaints Head: normocephalic ENMT: mucosa pink and moist Neck: jvd, supple Respiratory: diminished breath sounds (at bases/B) Cardiovascular: regular rate and rhythm Gastrointestinal: non-tender, soft Musculoskeletal: muscle tone (normal) Extremities: edema (trace) Neurological: other (No focal deficits) Results Result Diagram: 09/28/16 0608 09/29/16 0934 Results 24 hrs Laboratory Tests Test 09/28/16 12:51 09/28/16 17:22 09/28/16 21:20 09/28/16 22:05 Bedside Glucose 143 139 156 Sodium Level 159 H Test 09/29/16 00:40 09/29/16 05:57 09/29/16 08:31 09/29/16 09:34 Bedside Glucose 136 149 150 Sodium Level 158 H Medications Medications Current Medications Ondansetron HCl (Zofran Inj) 4 mg Q6H PRN IV NAUSEA AND/OR VOMITING; Start at 09:00 Acetaminophen (Tylenol Supp) 650 mg Q4H PRN [place] PAIN LEVEL 1-3 OR FEVER Last administered on 09/23/16 08:38; Admin Dose 650 MG; Start 09/21/16 at 09:00 Morphine Sulfate (morphine) 2 mg Q4H PRN IV PAIN LEVEL 7-10; Start 09/21/16 at 09:00 Pantoprazole (Protonix Iv) 40 mg DAILY@06 IV Last administered on 09/29/16 05: 58; Admin Dose 40 MG; Start 09/22/16 at 06:00 Lorazepam 1 mg 1 mg Q2H PRN IV Seizures; Start 09/21/16 at 09:30 Propofol (Diprivan) 100 ml @ 1.95 mls/hr Q12H IV ; Start 09/21/16 at 09:30 Amiodarone HCl (Cordarone) 200 mg DAILY PO Last administered on 09/29/16 09:30 ; Admin Dose 200 MG; Start 09/22/16 at 09:00 Digoxin (Digoxin) 0.125 mg DAILY PO Last administered on 09/29/16 09:30; Admin Dose 0.125 MG; Start 09/22/16 at 09:00 Losartan Potassium (Cozaar) 50 mg DAILY PO Last administered on 09/27/16 08:37 ; Admin Dose 50 MG; Start 09/22/16 at 09:00 Atorvastatin Calcium (Lipitor) 40 mg DAILY@21 PO Last administered on 21:52; Admin Dose 40 MG; Start 09/21/16 at 21:00 Miscellaneous Information 1 ea NOTE XX ; Start 09/21/16 at 10:00 Glucose (Glutose) 15 gm Q15M PRN PO DECREASED GLUCOSE; Start 09/21/16 at 10:00 Glucose (Glutose) 22.5 gm Q15M PRN PO DECREASED GLUCOSE; Start 09/21/16 at 10: 00 Dextrose (D50w Syringe) 25 ml Q15M PRN IV DECREASED GLUCOSE; Start 09/21/16 at 10:00 Dextrose (D50w Syringe) 50 ml Q15M PRN IV DECREASED GLUCOSE; Start 09/21/16 at 10:00 Glucagon (Glucagen) 1 mg Q15M PRN IM DECREASED GLUCOSE; Start 09/21/16 at 10:00 Glucose (Glutose) 15 gm Q15M PRN BUCCAL DECREASED GLUCOSE; Start 09/21/16 at 10 :00 Metoprolol Tartrate (Lopressor) 50 mg BID NGT Last administered on 09/28/16 21 :52; Admin Dose 50 MG; Start 09/22/16 at 10:00 Ferrous Sulfate 300 mg 300 mg BID NGT Last administered on 09/29/16 09:29; Admin Dose 300 MG; Start 09/22/16 at 10:00 Levetiracetam 100 ml @ 400 mls/hr BID IVPB Last administered on 09/29/16 09: 29; Admin Dose 400 MLS/HR; Start 09/24/16 at 14:30 Ceftriaxone Sodium (Rocephin) 50 ml @ 100 mls/hr Q24H IVPB Last administered on 09/28/16 12:41; Admin Dose 100 MLS/HR; Start 09/25/16 at 12:00 Diagnostic Test (Pha) 1 ea 1 ea 02 XX Last administered on 09/29/16 02:22; Admin Dose 1 EA; Start 09/28/16 at 02:00 Sodium Chloride (NS) 1,000 ml @ 20 mls/hr Q24H IV Last administered on 12:13; Admin Dose 20 MLS/HR; Start 09/27/16 at 11:30 Insulin Aspart (Novolog Insulin Pen) (Adult SC Insulin - Moder... Q4 SC Last administered on 09/29/16 09:31; Admin Dose 2 UNIT; Start 09/27/16 at 13:00 Desmopressin Acetate (Ddavp) 2 mcg BID SC Last administered on 09/29/16 09:30 ; Admin Dose 2 MCG; Start 09/28/16 at 11:30 Insulin Glargine (Lantus) 15 unit DAILY@20 SC Last administered on 09/28/16 21 :56; Admin Dose 15 UNIT; Start 09/28/16 at 20:00 MATHEW AMADO September 29, 2016 11:02
[2016-09-29] MEDS: CEFTRIAXONE 1 GM/50 ML (PMX) 50 ML IVPB SCH (13:19)
[2016-09-29] MEDS: SOD CHLORIDE 0.9% 1,000 ML IV SCH (13:19)
--- NOTE | 2016-09-29 13:35 | PN ---
DATE: 09/29/2016 SUBJECTIVE: No acute changes overnight. The patient is obtunded, lying comfortably in bed, and no fevers and no events overnight. OBJECTIVE: VITAL SIGNS: Temperature 98, pulse 80, respirations 18, blood pressure 124/69, saturati on 97% on vent. No labs this morning. MICROBIOLOGY: Blood culture since 09/23/2016 remain negative. INDWELLINGS: Endotracheal tube, NG tube, Macedo catheter. ANTIMICROBIALS: Rocephin. PHYSICAL EXAMINATION: GENERAL: This is a fragile, chronically ill-appearing, elderly woman who is in no distress. HEENT: Head atraumatic, normocephalic. Sclerae anicteric. Buccal mucosa dry. NECK: Supple. Trachea present. CHEST: Rise symmetrical. Breath sounds diminished to bases. HEART: S1, S2. ABDOMEN: Soft. Bowel sounds present. EXTREMITIES: Without cyanosis. ASSESSMENT: 1. Status post streptococcal bacteremia. 2. Encephalopathy, status post intracranial hemorrhage. 3. Respiratory failure. 4. Diabetes. 5. History of coronary artery disease. 6. Atrial fibrillation and cardiomyopathy, currently in sinus. PLAN: The patient remains hemodynamically ____. Studies stable. completing antibiotics for bacter emia. Family to decide regarding the final plans of care. Dictated By: ANGELINA GAMEZ [employer] for [employer] ALVARES/JARRELL Conf#: [id number] DID#: [id number]
--- NOTE | 2016-09-29 16:54 | PN ---
Date/Time of Note Date/Time of Note DATE: 09/29/16 TIME: 16:47 Assessment/Plan VTE Prophylaxis VTE Prophylaxis Intervention: SCD's Lines/Catheters IV Catheter Type (from Nrsg): Peripheral IV Urinary Cath still in place: Yes Reason Cath still needed: other (indicate) (intubated, on ventilator, strict I/ O ) Assessment/Plan Assessment/Plan 1. Intracranial bleeding including intraparenchymal hematoma and bilateral subdural hematomas with midline shift. 2. Accelerated hypertension. 3. Atrial fibrillation, rate controlled,, on amiodarone and digoxin. 4. Cardiomyopathy with ejection fraction of 30% with stage III and stage IV diastolic dysfunction. 5. Hypothyroidism. on synthroid 6. Hyperlipidemia. Continue statins. 7. Type 2 diabetes mellitus. Continue SSI. 8. Normocytic anemia. The patient has a history of iron deficiency. Continue iron supplements. 9. . Sepsis with underlying bacteremia. Continue antibiotics as per infectious diseases. DVT prophylaxis. Bilateral sequential compression devices. Gastrointestinal prophylaxis. Proton pump inhibitors. Plan: Continue ventilator care Neurosurgery following- No ongoing seizure activity on EEG. keep Na on higher side appropriately due to ICH- which switch to 1/2 NS at 30 cc /hr as agreed by neurosurgery, monitor Na and will adjust IVF appropriately SCD for DVT prophylaxis IV abx as per ID Subjective 24 Hr Interval Summary Free Text/Dictation remains on ventilator, BP stable Exam/Review of Systems Vital Signs Vitals Vital Signs Date Time Temp Pulse Resp B/P Pulse Ox O2 Delivery O2 Flow Rate FiO2 09/29/16 15:30 80 18 98 30 09/29/16 14:00 103/62 Mechanical Ventilator 09/29/16 12:00 98.1 Intake and Output 09/28/16 09/28/16 09/29/16 15:00 23:00 07:00 Intake Total 1010 ml 600 ml 540 ml Output Total 700 ml 405 ml 195 ml Balance 310 ml 195 ml 345 ml Exam GENERAL: intubated, sedated on ventilator HEENT: ET tube in place NECK: Supple. Trachea present. CHEST: Bilateral Coarse BS+ HEART: S1, S2. RRR no murmu r ABDOMEN: Soft. Bowel sounds present. EXTREMITIES: Without cyanosis., + lowery catheter in place Results Result Diagram: 09/28/16 0608 09/29/16 0934 Results 24 hrs Laboratory Tests Test 09/28/16 17:22 09/28/16 21:20 09/28/16 22:05 09/29/16 00:40 Bedside Glucose 139 156 136 Sodium Level 159 H Test 09/29/16 05:57 09/29/16 08:31 09/29/16 09:34 09/29/16 13:18 Bedside Glucose 149 150 160 Sodium Level 158 H Medications Medications Current Medications Ondansetron HCl (Zofran Inj) 4 mg Q6H PRN IV NAUSEA AND/OR VOMITING; Start at 09:00 Acetaminophen (Tylenol Supp) 650 mg Q4H PRN [place] PAIN LEVEL 1-3 OR FEVER Last administered on 09/23/16 08:38; Admin Dose 650 MG; Start 09/21/16 at 09:00 Morphine Sulfate (morphine) 2 mg Q4H PRN IV PAIN LEVEL 7-10; Start 09/21/16 at 09:00 Pantoprazole (Protonix Iv) 40 mg DAILY@06 IV Last administered on 09/29/16 05: 58; Admin Dose 40 MG; Start 09/22/16 at 06:00 Lorazepam 1 mg 1 mg Q2H PRN IV Seizures; Start 09/21/16 at 09:30 Propofol (Diprivan) 100 ml @ 1.95 mls/hr Q12H IV ; Start 09/21/16 at 09:30 Amiodarone HCl (Cordarone) 200 mg DAILY PO Last administered on 09/29/16 09:30 ; Admin Dose 200 MG; Start 09/22/16 at 09:00 Digoxin (Digoxin) 0.125 mg DAILY PO Last administered on 09/29/16 09:30; Admin Dose 0.125 MG; Start 09/22/16 at 09:00 Losartan Potassium (Cozaar) 50 mg DAILY PO Last administered on 09/27/16 08:37 ; Admin Dose 50 MG; Start 09/22/16 at 09:00 Atorvastatin Calcium (Lipitor) 40 mg DAILY@21 PO Last administered on 21:52; Admin Dose 40 MG; Start 09/21/16 at 21:00 Miscellaneous Information 1 ea NOTE XX ; Start 09/21/16 at 10:00 Glucose (Glutose) 15 gm Q15M PRN PO DECREASED GLUCOSE; Start 09/21/16 at 10:00 Glucose (Glutose) 22.5 gm Q15M PRN PO DECREASED GLUCOSE; Start 09/21/16 at 10: 00 Dextrose (D50w Syringe) 25 ml Q15M PRN IV DECREASED GLUCOSE; Start 09/21/16 at 10:00 Dextrose (D50w Syringe) 50 ml Q15M PRN IV DECREASED GLUCOSE; Start 09/21/16 at 10:00 Glucagon (Glucagen) 1 mg Q15M PRN IM DECREASED GLUCOSE; Start 09/21/16 at 10:00 Glucose (Glutose) 15 gm Q15M PRN BUCCAL DECREASED GLUCOSE; Start 09/21/16 at 10 :00 Metoprolol Tartrate (Lopressor) 50 mg BID NGT Last administered on 09/28/16 21 :52; Admin Dose 50 MG; Start 09/22/16 at 10:00 Ferrous Sulfate 300 mg 300 mg BID NGT Last administered on 09/29/16 09:29; Admin Dose 300 MG; Start 09/22/16 at 10:00 Levetiracetam 100 ml @ 400 mls/hr BID IVPB Last administered on 09/29/16 09: 29; Admin Dose 400 MLS/HR; Start 09/24/16 at 14:30 Ceftriaxone Sodium (Rocephin) 50 ml @ 100 mls/hr Q24H IVPB Last administered on 09/29/16 13:19; Admin Dose 100 MLS/HR; Start 09/25/16 at 12:00 Diagnostic Test (Pha) 1 ea 1 ea 02 XX Last administered on 09/29/16 02:22; Admin Dose 1 EA; Start 09/28/16 at 02:00 Sodium Chloride (NS) 1,000 ml @ 20 mls/hr Q24H IV Last administered on 13:19; Admin Dose 20 MLS/HR; Start 09/27/16 at 11:30 Insulin Aspart (Novolog Insulin Pen) (Adult SC Insulin - Moder... Q4 SC Last administered on 09/29/16 13:26; Admin Dose 2 UNIT; Start 09/27/16 at 13:00 Desmopressin Acetate (Ddavp) 2 mcg BID SC Last administered on 09/29/16 09:30 ; Admin Dose 2 MCG; Start 09/28/16 at 11:30 Insulin Glargine (Lantus) 15 unit DAILY@20 SC Last administered on 09/28/16t 21 :56; Admin Dose 15 UNIT; Start 09/28/16 at 20:00 SAM SAENZ MD September 29, 2016 16:54
[2016-09-29] MEDS: SOD CHLORIDE 0.45% 1,000 ML IV SCH (18:05)
[2016-09-29] MEDS: INSULIN GLARGINE [LANtus] 3 ML PEN SC SCH (20:18)
[2016-09-29] MEDS: ATORVASTATIN 40 MG TAB PO SCH (20:31)
[2016-09-30] VITALS (44 sets, daily range): BP systolic 84–130; BP diastolic 51–70; PULSE 80–82; RESP 18–22
[2016-09-30] MEDS: Insulin NOVOLOG SS MODERATE Algorithm(NPO/TPN/ENTERAL FEEDS) SC SCH ×6 (01:14→21:18)
[2016-09-30] MEDS: ACCU-CHEK XX SCH (01:17)
[2016-09-30] MEDS: PANTOPRAZOLE 40 MG INJ IV SCH (05:34)
[2016-09-30 06:09] LABS: ADD SCAN DIFF NO
[2016-09-30 06:13] LABS: ABNORMAL IP MESSAGE 1; EOSINOPHILS # 0.1 10^3/ul (0.0-0.5); EOSINOPHILS % 0.8 % (0.0-7.0); HEMATOCRIT 34.4 % (37.0-47.0); HEMOGLOBIN 10.1 g/dl (12.0-16.0); LYMPHOCYTES # 0.8 10^3/ul (0.8-2.9); LYMPHOCYTES % 10.4 % (15.0-51.0); MEAN CORPUSCULAR HGB CONC 29.4 g/dl (32.0-37.0); MEAN CORPUSCULAR VOLUME 95.3 fl (82.0-101.0); MONOCYTE # 0.6 10^3/ul (0.3-0.9); MONOCYTES % 7.7 % (0.0-11.0); NEUTROPHIL # 5.8 10^3/ul (1.6-7.5); NEUTROPHILS % 80.1 % (39.0-77.0); NUCLEATED RED BLOOD CELLS% 0.4 /100WBC (0.0-0.0); PLATELET COUNT 90 10^3/UL (140-415); RED BLOOD COUNT 3.61 10^6/ul (4.20-5.40); RED CELL DISTRIBUTION WIDTH 16.6 % (11.5-14.5); WHITE BLOOD COUNT 7.3 10^3/ul (4.8-10.8)
[2016-09-30 06:33] LABS: INR 1.24; PROTIME 15.7 Sec (12.2-14.2); PT RATIO 1.2
[2016-09-30 06:34] LABS: PARTIAL THROMBOPLASTIN TIME 31.8 Sec (25.0-35.0)
[2016-09-30 06:45] LABS: ALBUMIN 2.4 g/dl (3.3-4.9); ALBUMIN/GLOBULIN RATIO 0.61; BILIRUBIN,INDIRECT 0.8 mg/dl (0-1.1); BILIRUBIN,TOTAL 0.8 mg/dl (0.2-1.3); CALCIUM 8.1 mg/dl (8.4-10.2); CREATININE 1.1 mg/dl (0.44-1.00); TOTAL PROTEIN 6.3 g/dl (6.1-8.1)
[2016-09-30] MEDS: LEVOTHYROXINE 100 MCG TAB PO SCH (07:59)
--- NOTE | 2016-09-30 08:57 | CONS ---
Date/Time of Note Date/Time of Note DATE: 09/30/16 TIME: 08:54 Assessment/Plan Assessment/Plan Problems: (1) Cerebral hemorrhage Status: Acute Comment: No change in neurological exam. Na+ 153. Await cerebral angiogram. Continue supportive care. After angiogram (and will obtain repeat CT) will be better able to assess treatment options and counseling services manager family wrt aggressive treatment vs comfort measures only or withdrawal of care. Consultation Date/Type/Reason Admit Date/Time September 21, 2016 at 08:29 Initial Consult Date 09/21/16 Type of Consultation: Neurosurgery Referring Provider: LAINEY AGARWAL 24 HR Interval Summary Subjective hx not possible: pt non-verbal, pt critical status Exam/Review of Systems Vital Signs Vitals Vital Signs Date Time Temp Pulse Resp B/P Pulse Ox O2 Delivery O2 Flow Rate FiO2 09/30/16 07:00 80 18 108/63 97 Mechanical Ventilator 09/30/16 05:11 30 09/30/16 04:00 98.9 Intake and Output 09/29/16 09/29/16 09/30/16 15:00 23:00 07:00 Intake Total 780 ml 800 ml 590 ml Output Total 230 ml 105 ml 260 ml Balance 550 ml 695 ml 330 ml Exam Constitutional: non-verbal ENMT: intubated Neurological: other (pupils 3mm, reactive to light; corneals present bilaterally; couch present; localizes LUE; weak flexion RUE; no eye opening) Skin: ecchymosis Results Result Diagram: 09/30/16 0525 09/30/16 0525 Results 24 hrs Laboratory Tests Test 09/29/16 09:34 09/29/16 13:18 09/29/16 17:54 09/29/16 20:14 Sodium Level 158 H Bedside Glucose 160 141 146 Test 09/29/16 21:00 09/30/16 01:08 09/30/16 05:25 09/30/16 05:31 Sodium Level 156 H 153 H Bedside Glucose 168 156 White Blood Count 7.3 # Red Blood Count 3.61 L Hemoglobin 10.1 L Hematocrit 34.4 L Mean Corpuscular Volume 95.3 Mean Corpuscular Hemoglobin 28.0 L Mean Corpuscular Hemoglobin Concent 29.4 L Red Cell Distribution Width 16.6 H Platelet Count 90 L Mean Platelet Volume Neutrophils % 80.1 H Lymphocytes % 10.4 L Monocytes % 7.7 Eosinophils % 0.8 Basophils % 0.0 Nucleated Red Blood Cells % 0.4 H Neutrophils # 5.8 Lymphocytes # 0.8 Monocytes # 0.6 Eosinophils # 0.1 Basophils # 0.0 Nucleated Red Blood Cells # 0.0 Prothrombin Time 15.7 H Prothrombin Time Ratio 1.2 INR International Normalized Ratio 1.24 Activated Partial Thromboplast Time 31.8 Potassium Level 4.0 Chloride Level 121 H Carbon Dioxide Level 30 Anion Gap 6 L Blood Urea Nitrogen 59 H Creatinine 1.10 H Glucose Level 144 Calcium Level 8.1 L Total Bilirubin 0.8 Direct Bilirubin 0.00 Indirect Bilirubin 0.8 Aspartate Amino Transf (AST/SGOT) 61 H Alanine Aminotransferase (ALT/SGPT) 40 Alkaline Phosphatase 86 Total Protein 6.3 Albumin 2.4 L Globulin 3.90 H Albumin/Globulin Ratio 0.61 Medications Medications Current Medications Ondansetron HCl (Zofran Inj) 4 mg Q6H PRN IV NAUSEA AND/OR VOMITING; Start at 09:00 Acetaminophen (Tylenol Supp) 650 mg Q4H PRN IN PAIN LEVEL 1-3 OR FEVER Last administered on 09/23/16 08:38; Admin Dose 650 MG; Start 09/21/16 at 09:00 Morphine Sulfate (morphine) 2 mg Q4H PRN IV PAIN LEVEL 7-10; Start 09/21/16 at 09:00 Pantoprazole (Protonix Iv) 40 mg DAILY@06 IV Last administered on 09/30/16 05: 34; Admin Dose 40 MG; Start 09/22/16 at 06:00 Lorazepam 1 mg 1 mg Q2H PRN IV Seizures; Start 09/21/16 at 09:30 Propofol (Diprivan) 100 ml @ 1.95 mls/hr Q12H IV ; Start 09/21/16 at 09:30 Amiodarone HCl (Cordarone) 200 mg DAILY PO Last administered on 09/29/16 09:30 ; Admin Dose 200 MG; Start 09/22/16 at 09:00 Digoxin (Digoxin) 0.125 mg DAILY PO Last administered on 09/29/16 09:30; Admin Dose 0.125 MG; Start 09/22/16 at 09:00 Losartan Potassium (Cozaar) 50 mg DAILY PO Last administered on 09/27/16 08:37 ; Admin Dose 50 MG; Start 09/22/16 at 09:00 Atorvastatin Calcium (Lipitor) 40 mg DAILY@21 PO Last administered on 20:31; Admin Dose 40 MG; Start 09/21/16 at 21:00 Miscellaneous Information 1 ea NOTE XX ; Start 09/21/16 at 10:00 Glucose (Glutose) 15 gm Q15M PRN PO DECREASED GLUCOSE; Start 09/21/16 at 10:00 Glucose (Glutose) 22.5 gm Q15M PRN PO DECREASED GLUCOSE; Start 09/21/16 at 10: 00 Dextrose (D50w Syringe) 25 ml Q15M PRN IV DECREASED GLUCOSE; Start 09/21/16 at 10:00 Dextrose (D50w Syringe) 50 ml Q15M PRN IV DECREASED GLUCOSE; Start 09/21/16 at 10:00 Glucagon (Glucagen) 1 mg Q15M PRN IM DECREASED GLUCOSE; Start 09/21/16 at 10:00 Glucose (Glutose) 15 gm Q15M PRN BUCCAL DECREASED GLUCOSE; Start 09/21/16 at 10 :00 Metoprolol Tartrate (Lopressor) 50 mg BID NGT Last administered on 09/28/16 21 :52; Admin Dose 50 MG; Start 09/22/16 at 10:00 Ferrous Sulfate 300 mg 300 mg BID NGT Last administered on 09/29/16 20:22; Admin Dose 300 MG; Start 09/22/16 at 10:00 Levetiracetam 100 ml @ 400 mls/hr BID IVPB Last administered on 09/29/16 20: 22; Admin Dose 400 MLS/HR; Start 09/24/16 at 14:30 Ceftriaxone Sodium (Rocephin) 50 ml @ 100 mls/hr Q24H IVPB Last administered on 09/29/16 13:19; Admin Dose 100 MLS/HR; Start 09/25/16 at 12:00 Diagnostic Test (Pha) (Accu-Chek) 1 ea 02 XX Last administered on 09/29/16 02: 22; Admin Dose 1 EA; Start 09/28/16 at 02:00 Insulin Aspart (Novolog Insulin Pen) (Adult SC Insulin - Moder... Q4 SC Last administered on 09/30/16 05:37; Admin Dose 2 UNIT; Start 09/27/16 at 13:00 Desmopressin Acetate (Ddavp) 2 mcg BID SC Last administered on 09/29/16 20:31 ; Admin Dose 2 MCG; Start 09/28/16 at 11:30 Insulin Glargine 15 unit 15 unit DAILY@20 SC Last administered on 09/29/16 20: 18; Admin Dose 15 UNIT; Start 09/28/16 at 20:00 Sodium Chloride (1/2 NS) 1,000 ml @ 30 mls/hr Q24H IV Last administered on 18:05; Admin Dose 30 MLS/HR; Start 09/29/16 at 17:00 MAGALY DUNLAP MD September 30, 2016 08:57
[2016-09-30] MEDS: METOPROLOL 50 MG TAB NGT SCH ×2 (09:00→21:00)
[2016-09-30] MEDS: LOSARTAN 50 MG TAB PO SCH (09:00)
[2016-09-30] MEDS: FERROUS SULFATE 60 MG/ML 5ML CUP NGT SCH ×2 (09:13→21:04)
[2016-09-30] MEDS: LEVETIRACETAM 500 MG (PMX) 100 ML IVPB SCH ×2 (09:13→21:04)
[2016-09-30] MEDS: DESMOPRESSIN 4 MCG INJ SC SCH ×2 (09:14→21:04)
[2016-09-30] MEDS: AMIODARONE 200 MG TAB PO SCH (09:14)
[2016-09-30] MEDS: DIGOXIN 0.125 MG TAB PO SCH (09:14)
[2016-09-30] MEDS ORDERED: LIDOCAINE 1% (MPF) 5 ML VIAL SC ONE (10:30)
--- NOTE | 2016-09-30 10:44 | CONS ---
Date/Time of Note Date/Time of Note DATE: 09/30/16 TIME: 10:37 Assessment/Plan Assessment/Plan Chief Complaint/Hosp Course ID PROGRESS NOTE TOTAL ABX DAY #9 => Ceftriaxone s/p Vanco IV 24H INTERVAL SUMMARY * Orally intubated->Vented, obtunded, afebrile, VSS, chart reviewed, patient examined * CXR: 09/28/16: IMPRESSION: * 1. Findings suggestive of pulmonary vascular congestion/interstitial edema with small bilateral pleural effusions. Overall, no significant interval change. * 2. Mild cardiomegaly and aortic atherosclerosis. * 3. Tubes and lines, as described above. PHYSICAL EXAMINATION: GENERAL: VSS, obtunded, no fevers HEENT: ETT-> Secure to Vent, NGT NECK: Supple CHEST: Equal chest rise bilaterally, without dyspnea on observation HEART: Irr/Irr, II/ aortic Murmur ABDOMEN: Soft, overweight EXTREMITIES: Warm, left hemiparesis SKIN: Warm, dry ID ASSESSMENT: 76 yo F W/PMHX HTN, HLD, DMII, AFIB-> on Apixaban w/pacemaker, Heart Failure... => BIB EMS 09/21/16 w/facial droop, weakness, left hemiplegia admitted to [facility] ICU with: 1. s/p Sepsis vs SIRS with hypothermic temperature 94.8,HTN Crisis,tachycardia , and acute ICH on presentation to ED * Tmax 100.8 in ED, Intubated in ED 09/21/16 * BCx 09/21/16 (+)Group D Strep (not enterococcus) => Repeat BCx negative * UA/Urine Cx (-) 2. Intracranial bleeding including intraparenchymal hematoma and bilateral subdural hematomas with midline shift. * Neurosurgery on the case-> ICP lowering measures including hyperventilation & SZS precautions. No surgical interventions as of now. 3. Accelerated hypertension-> Cardiology & Neuro on the case 4. Atrial fibrillation rate controlled, hx of SSS? Pacemaker in situ vs ICD?- > On amiodarone and digoxin. 5. Acute Heart Failure exacerbation w/pulmonary edema CXR on admission => Mixed Systolic + Diastolic w/EF ~30% with stage III and stage IV diastolic dysfunction. 6. Aspiration Pneumonitis suspected in setting acute ICH w/facial droop 7. Acute respiratory failure -> Orally intubated in ED 09/21/16 8. Hypothyroidism on Synthroid. 9. Hyperlipidemia, on statin 10. Type 2 diabetes mellitus. 11. Normocytic anemia w/history of iron deficiency 12. Thrombocytopenia 13. Multinodular appearance of the thyroid gland, larger on the right. (-)MRSA Nares Screen INVASIVES: *PIV, ETT, OGT, FC ABX ALLERGIES: KNDA CURRENT ABX: DAY #9 => Ceftriaxone s/p Vanco IV ID RECOMMENDATIONS: 1. Continue Ceftriaxone total of 14 days minimum = ABX of choice. 2. Will continue to monitor and follow. . LITERATURE REVIEW [email or web address] Streptococcus Group D Infections Clinical Presentation Updated: Feb 23, 2015 * Author: Supa Mora MD; Chief Insurance Agency Owner: George Tafoya MD more... History Meningitis, peritonitis, septic arthritis, urinary tract infections, and sepsis due to group D streptococci have clinical features referable to the site of infection. When due to group D streptococcal infection, the clinical features do not differ from other bacterial causes of these infections. * Group D streptococcal endocarditis * Subacute endocarditis with persistent fever lasting days or weeks * Associated with nonspecific symptoms of systemic lupus erythematosus, including anorexia, weight loss, fatigue, night sweats, and weakness * Group D streptococcal bacteremia * Fever * Only possible to distinguish from endocarditis with patient history and echocardiography Treatment "Most S bovis isolates are susceptible to penicillin (JAIR = 0.1 mg/L) and should be treated with intravenous penicillin G or ceftriaxone for 4 weeks. An alternative for only uncomplicated cases of lovelock-valve endocarditis is a 2- week course of therapy with a combination of penicillin G or ceftriaxone and gentamicin. For moderately susceptible isolates (JAIR >0.1 mg/L, JAIR = 0.5 mg/L) , penicillin or ceftriaxone and gentamicin should be administered for 4 weeks and 2 weeks, respectively. [13] " ```````````````````````````````````````````````````````````````````````````````` ```````````````````````````````````````````````````````````````````````````````` ```````````````````````````````````````````````````````````````````````````````` `````````````````` Problems: Consultation Date/Type/Reason Admit Date/Time September 21, 2016 at 08:29 Initial Consult Date 09/21/16 Type of Consultation: ID Referring Provider: LAINEY AGARWAL Exam/Review of Systems Vital Signs Vitals Vital Signs Date Time Temp Pulse Resp B/P Pulse Ox O2 Delivery O2 Flow Rate FiO2 09/30/16 08:00 80 09/30/16 07:00 18 108/63 97 Mechanical Ventilator 09/30/16 05:11 30 09/30/16 04:00 98.9 Intake and Output 09/29/16 09/29/16 09/30/16 15:00 23:00 07:00 Intake Total 780 ml 800 ml 590 ml Output Total 230 ml 105 ml 260 ml Balance 550 ml 695 ml 330 ml Results Result Diagram: 09/30/16 0525 09/30/16 0525 Results 24 hrs Laboratory Tests Test 09/29/16 13:18 09/29/16 17:54 09/29/16 20:14 09/29/16 21:00 Bedside Glucose 160 141 146 Sodium Level 156 H Test 09/30/16 01:08 09/30/16 05:25 09/30/16 05:31 09/30/16 09:12 Bedside Glucose 168 156 151 White Blood Count 7.3 # Red Blood Count 3.61 L Hemoglobin 10.1 L Hematocrit 34.4 L Mean Corpuscular Volume 95.3 Mean Corpuscular Hemoglobin 28.0 L Mean Corpuscular Hemoglobin Concent 29.4 L Red Cell Distribution Width 16.6 H Platelet Count 90 L Mean Platelet Volume Neutrophils % 80.1 H Lymphocytes % 10.4 L Monocytes % 7.7 Eosinophils % 0.8 Basophils % 0.0 Nucleated Red Blood Cells % 0.4 H Neutrophils # 5.8 Lymphocytes # 0.8 Monocytes # 0.6 Eosinophils # 0.1 Basophils # 0.0 Nucleated Red Blood Cells # 0.0 Prothrombin Time 15.7 H Prothrombin Time Ratio 1.2 INR International Normalized Ratio 1.24 Activated Partial Thromboplast Time 31.8 Sodium Level 153 H Potassium Level 4.0 Chloride Level 121 H Carbon Dioxide Level 30 Anion Gap 6 L Blood Urea Nitrogen 59 H Creatinine 1.10 H Glucose Level 144 Calcium Level 8.1 L Total Bilirubin 0.8 Direct Bilirubin 0.00 Indirect Bilirubin 0.8 Aspartate Amino Transf (AST/SGOT) 61 H Alanine Aminotransferase (ALT/SGPT) 40 Alkaline Phosphatase 86 Total Protein 6.3 Albumin 2.4 L Globulin 3.90 H Albumin/Globulin Ratio 0.61 Medications Medications Current Medications Ondansetron HCl (Zofran Inj) 4 mg Q6H PRN IV NAUSEA AND/OR VOMITING; Start at 09:00 Acetaminophen (Tylenol Supp) 650 mg Q4H PRN [place] PAIN LEVEL 1-3 OR FEVER Last administered on 09/23/16 08:38; Admin Dose 650 MG; Start 09/21/16 at 09:00 Morphine Sulfate (morphine) 2 mg Q4H PRN IV PAIN LEVEL 7-10; Start 09/21/16 at 09:00 Pantoprazole (Protonix Iv) 40 mg DAILY@06 IV Last administered on 09/30/16 05: 34; Admin Dose 40 MG; Start 09/22/16 at 06:00 Lorazepam 1 mg 1 mg Q2H PRN IV Seizures; Start 09/21/16 at 09:30 Propofol (Diprivan) 100 ml @ 1.95 mls/hr Q12H IV ; Start 09/21/16 at 09:30 Amiodarone HCl (Cordarone) 200 mg DAILY PO Last administered on 09/30/16 09:14 ; Admin Dose 200 MG; Start 09/22/16 at 09:00 Digoxin (Digoxin) 0.125 mg DAILY PO Last administered on 09/30/16 09:14; Admin Dose 0.125 MG; Start 09/22/16 at 09:00 Losartan Potassium (Cozaar) 50 mg DAILY PO Last administered on 09/27/16 08:37 ; Admin Dose 50 MG; Start 09/22/16 at 09:00 Atorvastatin Calcium (Lipitor) 40 mg DAILY@21 PO Last administered on 20:31; Admin Dose 40 MG; Start 09/21/16 at 21:00 Miscellaneous Information 1 ea NOTE XX ; Start 09/21/16 at 10:00 Glucose (Glutose) 15 gm Q15M PRN PO DECREASED GLUCOSE; Start 09/21/16 at 10:00 Glucose (Glutose) 22.5 gm Q15M PRN PO DECREASED GLUCOSE; Start 09/21/16 at 10: 00 Dextrose (D50w Syringe) 25 ml Q15M PRN IV DECREASED GLUCOSE; Start 09/21/16 at 10:00 Dextrose (D50w Syringe) 50 ml Q15M PRN IV DECREASED GLUCOSE; Start 09/21/16 at 10:00 Glucagon (Glucagen) 1 mg Q15M PRN IM DECREASED GLUCOSE; Start 09/21/16 at 10:00 Glucose (Glutose) 15 gm Q15M PRN BUCCAL DECREASED GLUCOSE; Start 09/21/16 at 10 :00 Metoprolol Tartrate (Lopressor) 50 mg BID NGT Last administered on 09/28/16 21 :52; Admin Dose 50 MG; Start 09/22/16 at 10:00 Ferrous Sulfate 300 mg 300 mg BID NGT Last administered on 09/30/16 09:13; Admin Dose 300 MG; Start 09/22/16 at 10:00 Levetiracetam 100 ml @ 400 mls/hr BID IVPB Last administered on 09/30/16 09: 13; Admin Dose 400 MLS/HR; Start 09/24/16 at 14:30 Ceftriaxone Sodium (Rocephin) 50 ml @ 100 mls/hr Q24H IVPB Last administered on 09/29/16 13:19; Admin Dose 100 MLS/HR; Start 09/25/16 at 12:00 Diagnostic Test (Pha) (Accu-Chek) 1 ea 02 XX Last administered on 09/29/16 02: 22; Admin Dose 1 EA; Start 09/28/16 at 02:00 Insulin Aspart (Novolog Insulin Pen) (Adult SC Insulin - Moder... Q4 SC Last administered on 09/30/16 09:17; Admin Dose 2 UNIT; Start 09/27/16 at 13:00 Desmopressin Acetate (Ddavp) 2 mcg BID SC Last administered on 09/30/16 09:14 ; Admin Dose 2 MCG; Start 09/28/16 at 11:30 Insulin Glargine 15 unit 15 unit DAILY@20 SC Last administered on 09/29/16 20: 18; Admin Dose 15 UNIT; Start 09/28/16 at 20:00 Sodium Chloride (1/2 NS) 1,000 ml @ 30 mls/hr Q24H IV Last administered on 18:05; Admin Dose 30 MLS/HR; Start 09/29/16 at 17:00 DANTE THOMPSON NP September 30, 2016 10:44
--- NOTE | 2016-09-30 12:12 | CONS ---
Date/Time of Note Date/Time of Note DATE: 09/30/16 TIME: 12:09 Consult Date/Type/Reason Admit Date/Time September 21, 2016 at 08:29 Initial Consult Date 09/21/16 Type of Consultation: Pulm/CCM Ordering Provider: LAINEY AGARWAL Subjective Unresponsive on [facility] ventilation. Objective Vital Signs Date Time Temp Pulse Resp B/P Pulse Ox O2 Delivery O2 Flow Rate FiO2 09/30/16 08:00 Bag Valve Mask 09/30/16 08:00 80 09/30/16 08:00 30 09/30/16 07:00 18 108/63 97 09/30/16 04:00 98.9 Intake and Output 09/29/16 09/29/16 09/30/16 15:00 23:00 07:00 Intake Total 780 ml 800 ml 590 ml Output Total 230 ml 105 ml 260 ml Balance 550 ml 695 ml 330 ml Exam HEENT: Neck supple; no JVD; no LAD; ET in place CVS: Irreg irreg, S1 and S2 CHEST: Clear ABD: Soft, NT, + BS EXT: No c/c/e Results/Medications Result Diagram: 09/30/16 0525 09/30/16 0525 Results 24 hrs Laboratory Tests Test 09/29/16 13:18 09/29/16 17:54 09/29/16 20:14 09/29/16 21:00 Bedside Glucose 160 141 146 Sodium Level 156 H Test 09/30/16 01:08 09/30/16 05:25 09/30/16 05:31 09/30/16 09:12 Bedside Glucose 168 156 151 White Blood Count 7.3 # Red Blood Count 3.61 L Hemoglobin 10.1 L Hematocrit 34.4 L Mean Corpuscular Volume 95.3 Mean Corpuscular Hemoglobin 28.0 L Mean Corpuscular Hemoglobin Concent 29.4 L Red Cell Distribution Width 16.6 H Platelet Count 90 L Mean Platelet Volume Neutrophils % 80.1 H Lymphocytes % 10.4 L Monocytes % 7.7 Eosinophils % 0.8 Basophils % 0.0 Nucleated Red Blood Cells % 0.4 H Neutrophils # 5.8 Lymphocytes # 0.8 Monocytes # 0.6 Eosinophils # 0.1 Basophils # 0.0 Nucleated Red Blood Cells # 0.0 Prothrombin Time 15.7 H Prothrombin Time Ratio 1.2 INR International Normalized Ratio 1.24 Activated Partial Thromboplast Time 31.8 Sodium Level 153 H Potassium Level 4.0 Chloride Level 121 H Carbon Dioxide Level 30 Anion Gap 6 L Blood Urea Nitrogen 59 H Creatinine 1.10 H Glucose Level 144 Calcium Level 8.1 L Total Bilirubin 0.8 Direct Bilirubin 0.00 Indirect Bilirubin 0.8 Aspartate Amino Transf (AST/SGOT) 61 H Alanine Aminotransferase (ALT/SGPT) 40 Alkaline Phosphatase 86 Total Protein 6.3 Albumin 2.4 L Globulin 3.90 H Albumin/Globulin Ratio 0.61 Medications Current Medications Ondansetron HCl (Zofran Inj) 4 mg Q6H PRN IV NAUSEA AND/OR VOMITING; Start at 09:00 Acetaminophen (Tylenol Supp) 650 mg Q4H PRN [place] PAIN LEVEL 1-3 OR FEVER Last administered on 09/23/16 08:38; Admin Dose 650 MG; Start 09/21/16 at 09:00 Morphine Sulfate (morphine) 2 mg Q4H PRN IV PAIN LEVEL 7-10; Start 09/21/16 at 09:00 Pantoprazole (Protonix Iv) 40 mg DAILY@06 IV Last administered on 09/30/16 05: 34; Admin Dose 40 MG; Start 09/22/16 at 06:00 Lorazepam 1 mg 1 mg Q2H PRN IV Seizures; Start 09/21/16 at 09:30 Propofol (Diprivan) 100 ml @ 1.95 mls/hr Q12H IV ; Start 09/21/16 at 09:30 Amiodarone HCl (Cordarone) 200 mg DAILY PO Last administered on 09/30/16 09:14 ; Admin Dose 200 MG; Start 09/22/16 at 09:00 Digoxin (Digoxin) 0.125 mg DAILY PO Last administered on 09/30/16 09:14; Admin Dose 0.125 MG; Start 09/22/16 at 09:00 Losartan Potassium (Cozaar) 50 mg DAILY PO Last administered on 09/27/16 08:37 ; Admin Dose 50 MG; Start 09/22/16 at 09:00 Atorvastatin Calcium (Lipitor) 40 mg DAILY@21 PO Last administered on 20:31; Admin Dose 40 MG; Start 09/21/16 at 21:00 Miscellaneous Information 1 ea NOTE XX ; Start 09/21/16 at 10:00 Glucose (Glutose) 15 gm Q15M PRN PO DECREASED GLUCOSE; Start 09/21/16 at 10:00 Glucose (Glutose) 22.5 gm Q15M PRN PO DECREASED GLUCOSE; Start 09/21/16 at 10: 00 Dextrose (D50w Syringe) 25 ml Q15M PRN IV DECREASED GLUCOSE; Start 09/21/16 at 10:00 Dextrose (D50w Syringe) 50 ml Q15M PRN IV DECREASED GLUCOSE; Start 09/21/16 at 10:00 Glucagon (Glucagen) 1 mg Q15M PRN IM DECREASED GLUCOSE; Start 09/21/16 at 10:00 Glucose (Glutose) 15 gm Q15M PRN BUCCAL DECREASED GLUCOSE; Start 09/21/16 at 10 :00 Metoprolol Tartrate (Lopressor) 50 mg BID NGT Last administered on 09/28/16 21 :52; Admin Dose 50 MG; Start 09/22/16 at 10:00 Ferrous Sulfate 300 mg 300 mg BID NGT Last administered on 09/30/16 09:13; Admin Dose 300 MG; Start 09/22/16 at 10:00 Levetiracetam 100 ml @ 400 mls/hr BID IVPB Last administered on 09/30/16 09: 13; Admin Dose 400 MLS/HR; Start 09/24/16 at 14:30 Ceftriaxone Sodium (Rocephin) 50 ml @ 100 mls/hr Q24H IVPB Last administered on 09/29/16 13:19; Admin Dose 100 MLS/HR; Start 09/25/16 at 12:00 Diagnostic Test (Pha) (Accu-Chek) 1 ea 02 XX Last administered on 09/29/16 02: 22; Admin Dose 1 EA; Start 09/28/16 at 02:00 Insulin Aspart (Novolog Insulin Pen) (Adult SC Insulin - Moder... Q4 SC Last administered on 09/30/16 09:17; Admin Dose 2 UNIT; Start 09/27/16 at 13:00 Desmopressin Acetate (Ddavp) 2 mcg BID SC Last administered on 09/30/16 09:14 ; Admin Dose 2 MCG; Start 09/28/16 at 11:30 Insulin Glargine 15 unit 15 unit DAILY@20 SC Last administered on 09/29/16 20: 18; Admin Dose 15 UNIT; Start 09/28/16 at 20:00 Sodium Chloride (1/2 NS) 1,000 ml @ 30 mls/hr Q24H IV Last administered on 18:05; Admin Dose 30 MLS/HR; Start 09/29/16 at 17:00 Assessment/Plan Additional Assessment/Plan IMP: 1. 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 2. Encephalopathy 3. Resp Failure/Vent Dependence 4. Cardiac arrhythmia, status post pacemaker placement in the past. 5. Hypernatremia. 6. Thrombocytopenia. 7. CHF RECS: 1. Limitation to liberation from MV is mental status 2. Continue abx per ID 3. Vent support 4. TF/Free H20 5. DVT prophy 6. Agree with Palliative Care discussions 35 min cc time LINK KRAUSE MD September 30, 2016 12:12
[2016-09-30] MEDS: CEFTRIAXONE 1 GM/50 ML (PMX) 50 ML IVPB SCH (13:10)
--- NOTE | 2016-09-30 13:22 | PN ---
Date/Time of Note Date/Time of Note DATE: 09/30/16 TIME: 13:22 Assessment/Plan VTE Prophylaxis VTE Prophylaxis Intervention: SCD's Lines/Catheters IV Catheter Type (from Nrs): Saline Lock Assessment/Plan Chief Complaint/Hosp Course 1. Intracranial bleeding including intraparenchymal hematoma and bilateral subdural hematomas with midline shift. 2. Accelerated hypertension. 3. Atrial fibrillation, rate controlled,, on amiodarone and digoxin. 4. Cardiomyopathy with ejection fraction of 30% with stage III and stage IV diastolic dysfunction. 5. Hypothyroidism. on synthroid 6. Hyperlipidemia. Continue statins. 7. Type 2 diabetes mellitus. Continue SSI. 8. Normocytic anemia. The patient has a history of iron deficiency. Continue iron supplements. 9. . Sepsis with underlying bacteremia. Continue antibiotics as per infectious diseases. DVT prophylaxis. Bilateral sequential compression devices. Gastrointestinal prophylaxis. Proton pump inhibitors. Plan: Continue ventilator care Neurosurgery following- No ongoing seizure activity on EEG. keep Na on higher side appropriately due to ICH- which switch to 1/2 NS at 30 cc /hr as agreed by neurosurgery, monitor Na and will adjust IVF appropriately SCD for DVT prophylaxis IV abx as per ID Problems: Subjective 24 Hr Interval Summary Subjective hx not possible: pt non-verbal Exam/Review of Systems Vital Signs Vitals Vital Signs Date Time Temp Pulse Resp B/P Pulse Ox O2 Delivery O2 Flow Rate FiO2 09/30/16 12:30 80 116/60 98 09/30/16 12:00 99.4 Mechanical Ventilator 09/30/16 08:00 30 09/30/16 07:00 18 Intake and Output 09/29/16 09/29/16 09/30/16 15:00 23:00 07:00 Intake Total 780 ml 800 ml 590 ml Output Total 230 ml 105 ml 260 ml Balance 550 ml 695 ml 330 ml Exam Constitutional: non-verbal ENMT: intubated Respiratory: clear to auscultation Cardiovascular: regular rate and rhythm Gastrointestinal: soft, No distended Musculoskeletal: nl extremities to inspection Results Result Diagram: 09/30/16 0525 09/30/16 0525 Results 24 hrs Laboratory Tests Test 09/29/16 17:54 09/29/16 20:14 09/29/16 21:00 09/30/16 01:08 Bedside Glucose 141 146 168 Sodium Level 156 H Test 09/30/16 05:25 09/30/16 05:31 09/30/16 09:12 09/30/16 13:07 White Blood Count 7.3 # Red Blood Count 3.61 L Hemoglobin 10.1 L Hematocrit 34.4 L Mean Corpuscular Volume 95.3 Mean Corpuscular Hemoglobin 28.0 L Mean Corpuscular Hemoglobin Concent 29.4 L Red Cell Distribution Width 16.6 H Platelet Count 90 L Mean Platelet Volume Neutrophils % 80.1 H Lymphocytes % 10.4 L Monocytes % 7.7 Eosinophils % 0.8 Basophils % 0.0 Nucleated Red Blood Cells % 0.4 H Neutrophils # 5.8 Lymphocytes # 0.8 Monocytes # 0.6 Eosinophils # 0.1 Basophils # 0.0 Nucleated Red Blood Cells # 0.0 Prothrombin Time 15.7 H Prothrombin Time Ratio 1.2 INR International Normalized Ratio 1.24 Activated Partial Thromboplast Time 31.8 Sodium Level 153 H Potassium Level 4.0 Chloride Level 121 H Carbon Dioxide Level 30 Anion Gap 6 L Blood Urea Nitrogen 59 H Creatinine 1.10 H Glucose Level 144 Calcium Level 8.1 L Total Bilirubin 0.8 Direct Bilirubin 0.00 Indirect Bilirubin 0.8 Aspartate Amino Transf (AST/SGOT) 61 H Alanine Aminotransferase (ALT/SGPT) 40 Alkaline Phosphatase 86 Total Protein 6.3 Albumin 2.4 L Globulin 3.90 H Albumin/Globulin Ratio 0.61 Bedside Glucose 156 151 177 Medications Medications Current Medications Ondansetron HCl (Zofran Inj) 4 mg Q6H PRN IV NAUSEA AND/OR VOMITING; Start at 09:00 Acetaminophen (Tylenol Supp) 650 mg Q4H PRN [place] PAIN LEVEL 1-3 OR FEVER Last administered on 09/23/16 08:38; Admin Dose 650 MG; Start 09/21/16 at 09:00 Morphine Sulfate (morphine) 2 mg Q4H PRN IV PAIN LEVEL 7-10; Start 09/21/16 at 09:00 Pantoprazole (Protonix Iv) 40 mg DAILY@06 IV Last administered on 09/30/16 05: 34; Admin Dose 40 MG; Start 09/22/16 at 06:00 Lorazepam 1 mg 1 mg Q2H PRN IV Seizures; Start 09/21/16 at 09:30 Propofol (Diprivan) 100 ml @ 1.95 mls/hr Q12H IV ; Start 09/21/16 at 09:30 Amiodarone HCl (Cordarone) 200 mg DAILY PO Last administered on 09/30/16 09:14 ; Admin Dose 200 MG; Start 09/22/16 at 09:00 Digoxin (Digoxin) 0.125 mg DAILY PO Last administered on 09/30/16 09:14; Admin Dose 0.125 MG; Start 09/22/16 at 09:00 Losartan Potassium (Cozaar) 50 mg DAILY PO Last administered on 09/27/16 08:37 ; Admin Dose 50 MG; Start 09/22/16 at 09:00 Atorvastatin Calcium (Lipitor) 40 mg DAILY@21 PO Last administered on 20:31; Admin Dose 40 MG; Start 09/21/16 at 21:00 Miscellaneous Information 1 ea NOTE XX ; Start 09/21/16 at 10:00 Glucose (Glutose) 15 gm Q15M PRN PO DECREASED GLUCOSE; Start 09/21/16 at 10:00 Glucose (Glutose) 22.5 gm Q15M PRN PO DECREASED GLUCOSE; Start 09/21/16 at 10: 00 Dextrose (D50w Syringe) 25 ml Q15M PRN IV DECREASED GLUCOSE; Start 09/21/16 at 10:00 Dextrose (D50w Syringe) 50 ml Q15M PRN IV DECREASED GLUCOSE; Start 09/21/16 at 10:00 Glucagon (Glucagen) 1 mg Q15M PRN IM DECREASED GLUCOSE; Start 09/21/16 at 10:00 Glucose (Glutose) 15 gm Q15M PRN BUCCAL DECREASED GLUCOSE; Start 09/21/16 at 10 :00 Metoprolol Tartrate (Lopressor) 50 mg BID NGT Last administered on 09/28/16 21 :52; Admin Dose 50 MG; Start 09/22/16 at 10:00 Ferrous Sulfate 300 mg 300 mg BID NGT Last administered on 09/30/16 09:13; Admin Dose 300 MG; Start 09/22/16 at 10:00 Levetiracetam 100 ml @ 400 mls/hr BID IVPB Last administered on 09/30/16 09: 13; Admin Dose 400 MLS/HR; Start 09/24/16 at 14:30 Ceftriaxone Sodium (Rocephin) 50 ml @ 100 mls/hr Q24H IVPB Last administered on 09/30/16 13:10; Admin Dose 100 MLS/HR; Start 09/25/16 at 12:00 Diagnostic Test (Pha) (Accu-Chek) 1 ea 02 XX Last administered on 09/29/16 02: 22; Admin Dose 1 EA; Start 09/28/16 at 02:00 Insulin Aspart (Novolog Insulin Pen) (Adult SC Insulin - Moder... Q4 SC Last administered on 09/30/16 13:09; Admin Dose 2 UNIT; Start 09/27/16 at 13:00 Desmopressin Acetate (Ddavp) 2 mcg BID SC Last administered on 09/30/16 09:14 ; Admin Dose 2 MCG; Start 09/28/16 at 11:30 Insulin Glargine 15 unit 15 unit DAILY@20 SC Last administered on 09/29/16 20: 18; Admin Dose 15 UNIT; Start 09/28/16 at 20:00 Sodium Chloride (1/2 NS) 1,000 ml @ 30 mls/hr Q24H IV Last administered on 18:05; Admin Dose 30 MLS/HR; Start 09/29/16 at 17:00 TIMA ESPOSITO September 30, 2016 13:22
--- NOTE | 2016-09-30 14:27 | RADRPT ---
PROCEDURE: Ultrasound guided PICC line placement CLINICAL INDICATION: PICC line placement COMPARISON: None available TECHNIQUE: Real-time high-resolution ultrasound imaging in transverse and longitudinal planes was p erformed in the upper arm to evaluate venous size and location for needle insertion during PICC line placement. Windmill [employer] images were submitted for interpretation. FINDINGS: Focused ultrasound imaging of the upper arm was performed for placement of PICC line. No radiologist was present for the procedure. No diagnosis was made from the images. IMPRESSION: 1. Focused ultrasound for placement of PICC line. RPTAT: QQ .Franklin Basilio MD, Date Time Electronically viewed and signed by .Franklin Basilio MD, on 09/30/2016 14:26 .M/
--- NOTE | 2016-09-30 14:34 | RADRPT ---
PROCEDURE: XR Chest. CLINICAL INDICATION: PICC line placement TECHNIQUE: PA and lateral chest x-ray. COMPARISON: 09/30/2016 and 0615 hours. FINDINGS: Right-sided PICC line terminates the cavoatrial junction. Endotracheal tube terminates 3 cm above the luz marina. Nasogastric tube terminates in the body of the stomach. Single lead left AICD demonstrates stable an d satisfactory position. There is bibasilar consolidation with obscured hemidiaphragms. There are hazy opacities in the bilateral lung bases suggesting small effusions. No evidence of pneumothorax. The heart size is large. There is atherosclerotic calcification of the aorta. The cardiomediastina l silhouette is otherwise unremarkable. The soft tissues are within normal limits. Bony structures are unremarkable. IMPRESSION: 1. Satisfactory position of right-sided PICC line terminating at the cavoatrial junction. 2. Stable and satisfactory position of endotracheal tube and nasogastric tube. 3. Bibasilar atelectasis versus infiltrate, unchanged. 4. Hazy opacities in the lung bases suggesting small pleural effusions. 5. Cardiomegaly. 6. Atherosclerotic calcification of the aorta. RPTAT: QQ .Franklin Basilio MD, Date Time Electronically viewed and signed by .Franklin Basilio MD, on 09/30/2016 14:33 .M/
--- NOTE | 2016-09-30 14:38 | CONS ---
Date/Time of Note Date/Time of Note DATE: 09/30/16 TIME: 14:35 Assessment/Plan Assessment/Plan Additional Assessment/Plan Congestive heart failure exacerbation Cardiomyopathy with ejection fraction 25%, s/p Pacer/AICD Paroxysmal atrial fibrillation Subdural hematomas with midline shift Encephalopathy. Hypertension. Anemia. Thrombocytopenia. Hemodynamically stable Heart failure clinically compensated V paced at 80 bpm Continue Ventilatory support Avoid Volume Overload Continue diuresis with Lasix Continue Amiodarone and digoxin Continue Metoprolol Continue Losartan Continue Desmopressin Continue Antibiotics Continue Levothyroxine Continue Lipitor Continue aggressive pulmonary toiletry Continue GI and DVT Prophylaxis Consultation Date/Type/Reason Admit Date/Time September 21, 2016 at 08:29 Constitutional: other Psychological: no complaints Past Medical History Medical History: congestive heart failure, diabetes, high cholesterol, hypertension, hypothyroid, other (pulmonary hypertension, cardiomyopathy, sick sinus syndrome, aortic stenosis, anemia) Past Surgical History Past Surgical Hx: other (pacemaker placement) Social History Alcohol Use: none Smoking Status: Unknown if ever smoked Drug Use: none Exam/Review of Systems Vital Signs Vitals Vital Signs Date Time Temp Pulse Resp B/P Pulse Ox O2 Delivery O2 Flow Rate FiO2 09/30/16 12:30 80 116/60 98 09/30/16 12:00 99.4 Mechanical Ventilator 09/30/16 08:00 30 09/30/16 07:00 18 Intake and Output 09/29/16 09/29/16 09/30/16 15:00 23:00 07:00 Intake Total 780 ml 800 ml 590 ml Output Total 230 ml 105 ml 260 ml Balance 550 ml 695 ml 330 ml Exam Intubated, non responsive Neck No JVD CVS RRR, No m/r/g Chest Mechanical Breath sounds heard bilaterally Abd: Soft, BS sounds heard Ext No pedal edema Results Result Diagram: 09/30/16 0525 09/30/16 0525 Results 24 hrs Laboratory Tests Test 09/29/16 17:54 09/29/16 20:14 09/29/16 21:00 09/30/16 01:08 Bedside Glucose 141 146 168 Sodium Level 156 H Test 09/30/16 05:25 09/30/16 05:31 09/30/16 09:12 09/30/16 13:07 White Blood Count 7.3 # Red Blood Count 3.61 L Hemoglobin 10.1 L Hematocrit 34.4 L Mean Corpuscular Volume 95.3 Mean Corpuscular Hemoglobin 28.0 L Mean Corpuscular Hemoglobin Concent 29.4 L Red Cell Distribution Width 16.6 H Platelet Count 90 L Mean Platelet Volume Neutrophils % 80.1 H Lymphocytes % 10.4 L Monocytes % 7.7 Eosinophils % 0.8 Basophils % 0.0 Nucleated Red Blood Cells % 0.4 H Neutrophils # 5.8 Lymphocytes # 0.8 Monocytes # 0.6 Eosinophils # 0.1 Basophils # 0.0 Nucleated Red Blood Cells # 0.0 Prothrombin Time 15.7 H Prothrombin Time Ratio 1.2 INR International Normalized Ratio 1.24 Activated Partial Thromboplast Time 31.8 Sodium Level 153 H Potassium Level 4.0 Chloride Level 121 H Carbon Dioxide Level 30 Anion Gap 6 L Blood Urea Nitrogen 59 H Creatinine 1.10 H Glucose Level 144 Calcium Level 8.1 L Total Bilirubin 0.8 Direct Bilirubin 0.00 Indirect Bilirubin 0.8 Aspartate Amino Transf (AST/SGOT) 61 H Alanine Aminotransferase (ALT/SGPT) 40 Alkaline Phosphatase 86 Total Protein 6.3 Albumin 2.4 L Globulin 3.90 H Albumin/Globulin Ratio 0.61 Bedside Glucose 156 151 177 Medications Medications Current Medications Ondansetron HCl (Zofran Inj) 4 mg Q6H PRN IV NAUSEA AND/OR VOMITING; Start at 09:00 Acetaminophen (Tylenol Supp) 650 mg Q4H PRN [place] PAIN LEVEL 1-3 OR FEVER Last administered on 09/23/16 08:38; Admin Dose 650 MG; Start 09/21/16 at 09:00 Morphine Sulfate (morphine) 2 mg Q4H PRN IV PAIN LEVEL 7-10; Start 09/21/16 at 09:00 Pantoprazole (Protonix Iv) 40 mg DAILY@06 IV Last administered on 09/30/16 05: 34; Admin Dose 40 MG; Start 09/22/16 at 06:00 Lorazepam 1 mg 1 mg Q2H PRN IV Seizures; Start 09/21/16 at 09:30 Propofol (Diprivan) 100 ml @ 1.95 mls/hr Q12H IV ; Start 09/21/16 at 09:30 Amiodarone HCl (Cordarone) 200 mg DAILY PO Last administered on 09/30/16 09:14 ; Admin Dose 200 MG; Start 09/22/16 at 09:00 Digoxin (Digoxin) 0.125 mg DAILY PO Last administered on 09/30/16 09:14; Admin Dose 0.125 MG; Start 09/22/16 at 09:00 Losartan Potassium (Cozaar) 50 mg DAILY PO Last administered on 09/27/16 08:37 ; Admin Dose 50 MG; Start 09/22/16 at 09:00 Atorvastatin Calcium (Lipitor) 40 mg DAILY@21 PO Last administered on 20:31; Admin Dose 40 MG; Start 09/21/16 at 21:00 Miscellaneous Information 1 ea NOTE XX ; Start 09/21/16 at 10:00 Glucose (Glutose) 15 gm Q15M PRN PO DECREASED GLUCOSE; Start 09/21/16 at 10:00 Glucose (Glutose) 22.5 gm Q15M PRN PO DECREASED GLUCOSE; Start 09/21/16 at 10: 00 Dextrose (D50w Syringe) 25 ml Q15M PRN IV DECREASED GLUCOSE; Start 09/21/16 at 10:00 Dextrose (D50w Syringe) 50 ml Q15M PRN IV DECREASED GLUCOSE; Start 09/21/16 at 10:00 Glucagon (Glucagen) 1 mg Q15M PRN IM DECREASED GLUCOSE; Start 09/21/16 at 10:00 Glucose (Glutose) 15 gm Q15M PRN BUCCAL DECREASED GLUCOSE; Start 09/21/16 at 10 :00 Metoprolol Tartrate (Lopressor) 50 mg BID NGT Last administered on 09/28/16 21 :52; Admin Dose 50 MG; Start 09/22/16 at 10:00 Ferrous Sulfate 300 mg 300 mg BID NGT Last administered on 09/30/16 09:13; Admin Dose 300 MG; Start 09/22/16 at 10:00 Levetiracetam 100 ml @ 400 mls/hr BID IVPB Last administered on 09/30/16 09: 13; Admin Dose 400 MLS/HR; Start 09/24/16 at 14:30 Ceftriaxone Sodium (Rocephin) 50 ml @ 100 mls/hr Q24H IVPB Last administered on 09/30/16 13:10; Admin Dose 100 MLS/HR; Start 09/25/16 at 12:00 Diagnostic Test (Pha) (Accu-Chek) 1 ea 02 XX Last administered on 09/29/16 02: 22; Admin Dose 1 EA; Start 09/28/16 at 02:00 Insulin Aspart (Novolog Insulin Pen) (Adult SC Insulin - Moder... Q4 SC Last administered on 09/30/16 13:09; Admin Dose 2 UNIT; Start 09/27/16 at 13:00 Desmopressin Acetate (Ddavp) 2 mcg BID SC Last administered on 09/30/16 09:14 ; Admin Dose 2 MCG; Start 09/28/16 at 11:30 Insulin Glargine 15 unit 15 unit DAILY@20 SC Last administered on 09/29/16 20: 18; Admin Dose 15 UNIT; Start 09/28/16 at 20:00 Sodium Chloride (1/2 NS) 1,000 ml @ 30 mls/hr Q24H IV Last administered on 18:05; Admin Dose 30 MLS/HR; Start 09/29/16 at 17:00 STEPHEN PAULA M.D. September 30, 2016 14:38
[2016-09-30] MEDS ORDERED: SOD CHLORIDE 0.9% 1,000 ML IV ONE (15:30)
[2016-09-30] MEDS: ATORVASTATIN 40 MG TAB PO SCH (21:04)
[2016-09-30] MEDS: INSULIN GLARGINE [LANtus] 3 ML PEN SC SCH (21:09)
--- NOTE | 2016-09-30 23:18 | RADRPT ---
PROCEDURE: XR Chest. CLINICAL INDICATION: Intubated, respiratory failure TECHNIQUE: Anterior chest x-ray. COMPARISON: 09/28/2016 FINDINGS: Exam is limited secondary to rotated positioning. There is stable and satisfactory position of the life-support lines. Endotracheal tube terminates 2.7 cm above the luz marina. The single lead AICD is unchanged. The lung volumes are low. There is crowding of central pulmonary vasculature. Bibasilar consolidation with partially obscured hemidiaphragm is unchanged. 3 x 5 cm focus of consolidation in the left mid lung zone is slightly more prominent than on previou s exam. Patchy airspace opacity in the right mid and upper perihilar lung zones is more prominent than on pr evious exam. The heart size is large. The cardiomediastinal contour is stable. There is no free air under the hemidiaphragms. The soft tissues and bony structures are unchanged. IMPRESSION: 1. Stable and satisfactory position of the life-support lines. 2. Low lung volumes with compressive changes in bilateral lung bases. 3. Patchy perihilar airspace opacities consistent with infiltrates, atelectasis or pulmonary edema. 4. Cardiomegaly. 5. Atherosclerotic calcification of the aorta. RPTAT: HLDM .Franklin Basilio MD, MD Date Time Electronically viewed and signed by .Franklin Basilio MD, on 09/30/2016 23:18 .April/
[2016-10-01] VITALS (35 sets, daily range): BP systolic 96–124; BP diastolic 51–65; PULSE 80–81; RESP 18–20
[2016-10-01] MEDS: SOD CHLORIDE 0.45% 1,000 ML IV SCH ×2 (01:55→17:00)
[2016-10-01] MEDS: ACCU-CHEK XX SCH (02:00)
[2016-10-01] MEDS: Insulin NOVOLOG SS MODERATE Algorithm(NPO/TPN/ENTERAL FEEDS) SC SCH ×6 (02:32→21:13)
[2016-10-01 04:26] LABS: ADD SCAN DIFF NO
[2016-10-01 04:33] LABS: ABNORMAL IP MESSAGE 1; BASOPHILS % 0.1 % (0.0-2.0); EOSINOPHILS # 0.1 10^3/ul (0.0-0.5); HEMATOCRIT 30.3 % (37.0-47.0); LYMPHOCYTES # 0.6 10^3/ul (0.8-2.9); LYMPHOCYTES % 8.4 % (15.0-51.0); MEAN CORPUSCULAR HEMOGLOBIN 28.1 pg (29.0-33.0); MEAN CORPUSCULAR HGB CONC 29.7 g/dl (32.0-37.0); MEAN CORPUSCULAR VOLUME 94.7 fl (82.0-101.0); MONOCYTE # 0.6 10^3/ul (0.3-0.9); MONOCYTES % 7.5 % (0.0-11.0); NEUTROPHIL # 6.1 10^3/ul (1.6-7.5); NEUTROPHILS % 82.3 % (39.0-77.0); NUCLEATED RED BLOOD CELLS% 0.3 /100WBC (0.0-0.0); PLATELET COUNT 74 10^3/UL (140-415); RED CELL DISTRIBUTION WIDTH 16.1 % (11.5-14.5); WHITE BLOOD COUNT 7.4 10^3/ul (4.8-10.8)
[2016-10-01 05:01] LABS: CREATININE 1.1 mg/dl (0.44-1.00); POTASSIUM 3.7 mmol/L (3.5-5.1)
[2016-10-01] MEDS: PANTOPRAZOLE 40 MG INJ IV SCH (05:32)
[2016-10-01] MEDS: LEVOTHYROXINE 100 MCG TAB PO SCH (05:33)
[2016-10-01] MEDS: LOSARTAN 50 MG TAB PO SCH (09:00)
[2016-10-01] MEDS: METOPROLOL 50 MG TAB NGT SCH ×2 (09:00→21:00)
[2016-10-01] MEDS: AMIODARONE 200 MG TAB PO SCH (09:02)
[2016-10-01] MEDS: DIGOXIN 0.125 MG TAB PO SCH (09:02)
[2016-10-01] MEDS: FERROUS SULFATE 60 MG/ML 5ML CUP NGT SCH ×2 (09:02→21:08)
[2016-10-01] MEDS: LEVETIRACETAM 500 MG (PMX) 100 ML IVPB SCH ×2 (09:03→21:08)
[2016-10-01] MEDS: DESMOPRESSIN 4 MCG INJ SC SCH ×2 (09:27→21:12)
[2016-10-01 10:22] LABS: AADO2 Arterial 90.7 mmHg (7.0-24.0); Allen Test ACCEPTAB; Arterial Base Excess 2.8 mmol/L (-3.0-3); Arterial COHb 0.2 % (0.0-3.0); Arterial Fraction of Oxyhgb 95.4 % (93.0-99.0); Arterial HCO3 25.6 mmol/L (22.0-26.0); Arterial MetHb 0.2 % (0.0-1.5); Arterial Total Hemglobin 10.2 g/dl (12.0-18.0); MODE VENT - AC
--- NOTE | 2016-10-01 11:46 | CONS ---
Date/Time of Note Date/Time of Note DATE: 10/01/16 TIME: 11:44 Consult Date/Type/Reason Admit Date/Time September 21, 2016 at 08:29 Initial Consult Date 09/21/16 Type of Consultation: Pulm/CCM Ordering Provider: LAINEY AGARWAL Subjective Unresponsive and flaccid on the vent. Objective Vital Signs Date Time Temp Pulse Resp B/P Pulse Ox O2 Delivery O2 Flow Rate FiO2 10/01/16 10:00 80 102/57 98 Mechanical Ventilator 10/01/16 09:22 18 30 10/01/16 08:00 99.4 Intake and Output 09/30/16 09/30/16 10/01/16 15:00 23:00 07:00 Intake Total 950 ml 1610 ml 600 ml Output Total 261 ml 240 ml 330 ml Balance 689 ml 1370 ml 270 ml Exam HEENT: Neck supple; no JVD; no LAD; ET in place CVS: Irreg irreg, S1 and S2 CHEST: Clear ABD: Soft, NT, + BS EXT: No c/c ++ edema NEURO: Unresponsive; flaccid Results/Medications Result Diagram: 10/01/16 0410 10/01/16 0410 Results 24 hrs Laboratory Tests Test 09/30/16 13:07 09/30/16 17:05 09/30/16 20:55 09/30/16 21:16 Bedside Glucose 177 175 167 Sodium Level 155 H Test 10/01/16 02:30 10/01/16 04:10 10/01/16 05:00 10/01/16 05:37 Bedside Glucose 165 135 White Blood Count 7.4 Red Blood Count 3.20 L Hemoglobin 9.0 L Hematocrit 30.3 L Mean Corpuscular Volume 94.7 Mean Corpuscular Hemoglobin 28.1 L Mean Corpuscular Hemoglobin Concent 29.7 L Red Cell Distribution Width 16.1 H Platelet Count 74 L Mean Platelet Volume Neutrophils % 82.3 H Lymphocytes % 8.4 L Monocytes % 7.5 Eosinophils % 1.0 Basophils % 0.1 Nucleated Red Blood Cells % 0.3 H Neutrophils # 6.1 Lymphocytes # 0.6 L Monocytes # 0.6 Eosinophils # 0.1 Basophils # 0.0 Nucleated Red Blood Cells # 0.0 Sodium Level 159 H Potassium Level 3.7 Chloride Level 120 H Carbon Dioxide Level 31 Anion Gap 12 Blood Urea Nitrogen 59 H Creatinine 1.10 H Glucose Level 135 Lactic Acid Level 1.7 Calcium Level 8.0 L Blood Gas Specimen Source Blood arterial Arterial Blood Date Drawn 10/01/2016 5:00:20 AM Arterial Blood pH (Temp corrected) 7.511 H Arterial Blood pCO2 (Temp correct) 32.7 L Arterial Blood pO2 (Temp corrected) 84.8 Arterial Blood HCO3 25.6 Arterial Blood Base Excess 2.8 Arterial Blood Oxygen Saturation 95.8 Rajendra Test ACCEPTAB Arterial Blood Gas Puncture Site Right Radial Arterial Blood Carboxyhemoglobin 0.2 Arterial Blood Methemoglobin 0.2 Blood Gas A-a O2 Differential 90.7 H Oxyhemoglobin Percent 95.4 Total Hemoglobin 10.2 L Blood Gas Temperature 37.0 Blood Gas Respiration Rate 18.0 Blood Gas Actual Respiration Rate 18 Blood Gas Modality VENT - AC FiO2 30.0 Blood Gas Tidal Volume 450.0 Blood Gas Low PEEP Setting 5.0 Blood Gas Notified Whom UP Blood Gas Notified Time 10/01/2016 5:28:21 AM Test 10/01/16 08:28 Bedside Glucose 151 Medications Current Medications Ondansetron HCl (Zofran Inj) 4 mg Q6H PRN IV NAUSEA AND/OR VOMITING; Start at 09:00 Acetaminophen (Tylenol Supp) 650 mg Q4H PRN [place] PAIN LEVEL 1-3 OR FEVER Last administered on 09/23/16 08:38; Admin Dose 650 MG; Start 09/21/16 at 09:00 Morphine Sulfate (morphine) 2 mg Q4H PRN IV PAIN LEVEL 7-10; Start 09/21/16 at 09:00 Pantoprazole (Protonix Iv) 40 mg DAILY@06 IV Last administered on 10/01/16 05: 32; Admin Dose 40 MG; Start 09/22/16 at 06:00 Lorazepam (Ativan) 1 mg Q2H PRN IV Seizures; Start 09/21/16 at 09:30 Amiodarone HCl (Cordarone) 200 mg DAILY PO Last administered on 10/01/16 09:02 ; Admin Dose 200 MG; Start 09/22/16 at 09:00 Digoxin (Digoxin) 0.125 mg DAILY PO Last administered on 10/01/16 09:02; Admin Dose 0.125 MG; Start 09/22/16 at 09:00 Losartan Potassium (Cozaar) 50 mg DAILY PO Last administered on 09/27/16 08:37 ; Admin Dose 50 MG; Start 09/22/16 at 09:00 Atorvastatin Calcium (Lipitor) 40 mg DAILY@21 PO Last administered on 21:04; Admin Dose 40 MG; Start 09/21/16 at 21:00 Miscellaneous Information 1 ea NOTE XX ; Start 09/21/16 at 10:00 Glucose (Glutose) 15 gm Q15M PRN PO DECREASED GLUCOSE; Start 09/21/16 at 10:00 Glucose (Glutose) 22.5 gm Q15M PRN PO DECREASED GLUCOSE; Start 09/21/16 at 10: 00 Dextrose (D50w Syringe) 25 ml Q15M PRN IV DECREASED GLUCOSE; Start 09/21/16 at 10:00 Dextrose (D50w Syringe) 50 ml Q15M PRN IV DECREASED GLUCOSE; Start 09/21/16 at 10:00 Glucagon (Glucagen) 1 mg Q15M PRN IM DECREASED GLUCOSE; Start 09/21/16 at 10:00 Glucose (Glutose) 15 gm Q15M PRN BUCCAL DECREASED GLUCOSE; Start 09/21/16 at 10 :00 Metoprolol Tartrate (Lopressor) 50 mg BID NGT Last administered on 09/28/16 21 :52; Admin Dose 50 MG; Start 09/22/16 at 10:00 Ferrous Sulfate 300 mg 300 mg BID NGT Last administered on 10/01/16 09:02; Admin Dose 300 MG; Start 09/22/16 at 10:00 Levetiracetam 100 ml @ 400 mls/hr BID IVPB Last administered on 10/01/16 09: 03; Admin Dose 400 MLS/HR; Start 09/24/16 at 14:30 Ceftriaxone Sodium (Rocephin) 50 ml @ 100 mls/hr Q24H IVPB Last administered on 09/30/16 13:10; Admin Dose 100 MLS/HR; Start 09/25/16 at 12:00 Diagnostic Test (Pha) (Accu-Chek) 1 ea 02 XX Last administered on 10/01/16 02: 00; Admin Dose 1 EA; Start 09/28/16 at 02:00 Insulin Aspart (Novolog Insulin Pen) (Adult SC Insulin - Moder... Q4 SC Last administered on 10/01/16 09:04; Admin Dose 2 UNIT; Start 09/27/16 at 13:00 Desmopressin Acetate (Ddavp) 2 mcg BID SC Last administered on 10/01/16 09:27 ; Admin Dose 2 MCG; Start 09/28/16 at 11:30 Insulin Glargine 15 unit 15 unit DAILY@20 SC Last administered on 09/30/16 21: 09; Admin Dose 15 UNIT; Start 09/28/16 at 20:00 Sodium Chloride (1/2 NS) 1,000 ml @ 30 mls/hr Q24H IV Last administered on 01:55; Admin Dose 30 MLS/HR; Start 09/29/16 at 17:00 IV Flush (NS 10 ml) 10 ml PRN PRN IV FLUSH LINE; Start 09/30/16 at 17:00 Assessment/Plan Additional Assessment/Plan IMP: 1. 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 2. Encephalopathy secondary to #1 3. Resp Failure/Vent Dependence 4. Cardiac arrhythmia, status post pacemaker placement in the past. 5. 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 Thrombocytopenia. 7. CHF RECS: 1. Limitation to liberation from MV is mental status, which is unlikely to improve 2. Continue abx per ID 3. Vent support 4. TF/Free H20 5. Continue ddAVP; follow Na+ 6. Agree with Palliative Care discussions as prognosis for a meaningful recovery is none. 35 min cc time LINK KRAUSE MD October 01, 2016 11:46
--- NOTE | 2016-10-01 11:55 | RADRPT ---
PROCEDURE: XR Chest. CLINICAL INDICATION: Dyspnea TECHNIQUE: Single frontal chest x-ray. COMPARISON: 09/30/2016 FINDINGS: Dense patchy consolidation and underlying congestion is seen scattered throughout the lungs, worse w hen compared to the prior study. Basilar pleural effusions are seen, also minimally worse in the in terim. The heart size is enlarged. Left chest AICD device is stable. Endotracheal tube, nasogastr ic tube, right-sided PICC line are equally stable. There is no pneumothorax. IMPRESSION: 1. Worsening congestion and confluent consolidation throughout the lungs. 2. Slightly worsening bilateral basilar layering pleural effusions. 3. Cardiomegaly with left chest AICD device, stable. 4. Stable lines and tubes in good position without pneumothorax. RPTAT: HMJB .Shay Noe MD, Date Time Electronically viewed and signed by .Shay Noe MD, on 10/01/2016 11:55 .B/
[2016-10-01] MEDS: CEFTRIAXONE 1 GM/50 ML (PMX) 50 ML IVPB SCH (12:42)
--- NOTE | 2016-10-01 14:01 | CONS ---
Date/Time of Note Date/Time of Note DATE: 10/01/16 TIME: 14:00 Assessment/Plan Assessment/Plan Additional Assessment/Plan Congestive heart failure exacerbation Cardiomyopathy with ejection fraction 25%, s/p Pacer/AICD Paroxysmal atrial fibrillation Subdural hematomas with midline shift Encephalopathy. Hypertension. Anemia. Thrombocytopenia. Hemodynamically stable Heart failure clinically compensated V paced at 80 bpm Continue Ventilatory support Avoid Volume Overload Continue diuresis with Lasix Continue Amiodarone and digoxin Continue Metoprolol Continue Losartan Continue Desmopressin Continue Antibiotics Continue Levothyroxine Continue Lipitor Continue aggressive pulmonary toiletry Continue GI and DVT Prophylaxis Consultation Date/Type/Reason Admit Date/Time September 21, 2016 at 08:29 Initial Consult Date 09/21/16 Type of Consultation: Pulm/CCM Referring Provider: LAINEY AGARWAL Exam/Review of Systems Vital Signs Vitals Vital Signs Date Time Temp Pulse Resp B/P Pulse Ox O2 Delivery O2 Flow Rate FiO2 10/01/16 13:18 80 18 97 30 10/01/16 11:00 121/56 Mechanical Ventilator 10/01/16 08:00 99.4 Intake and Output 09/30/16 09/30/16 10/01/16 15:00 23:00 07:00 Intake Total 950 ml 1610 ml 600 ml Output Total 261 ml 240 ml 330 ml Balance 689 ml 1370 ml 270 ml Exam Intubated, non responsive Neck No JVD CVS RRR, No m/r/g Chest Mechanical Breath sounds heard bilaterally Abd: Soft, BS sounds heard Ext No pedal edema Results Result Diagram: 10/01/16 0410 10/01/16 0410 Results 24 hrs Laboratory Tests Test 09/30/16 17:05 09/30/16 20:55 09/30/16 21:16 10/01/16 02:30 Bedside Glucose 175 167 165 Sodium Level 155 H Test 10/01/16 04:10 10/01/16 05:00 10/01/16 05:37 10/01/16 08:28 White Blood Count 7.4 Red Blood Count 3.20 L Hemoglobin 9.0 L Hematocrit 30.3 L Mean Corpuscular Volume 94.7 Mean Corpuscular Hemoglobin 28.1 L Mean Corpuscular Hemoglobin Concent 29.7 L Red Cell Distribution Width 16.1 H Platelet Count 74 L Mean Platelet Volume Neutrophils % 82.3 H Lymphocytes % 8.4 L Monocytes % 7.5 Eosinophils % 1.0 Basophils % 0.1 Nucleated Red Blood Cells % 0.3 H Neutrophils # 6.1 Lymphocytes # 0.6 L Monocytes # 0.6 Eosinophils # 0.1 Basophils # 0.0 Nucleated Red Blood Cells # 0.0 Sodium Level 159 H Potassium Level 3.7 Chloride Level 120 H Carbon Dioxide Level 31 Anion Gap 12 Blood Urea Nitrogen 59 H Creatinine 1.10 H Glucose Level 135 Lactic Acid Level 1.7 Calcium Level 8.0 L Blood Gas Specimen Source Blood arterial Arterial Blood Date Drawn 10/01/2016 5:00:20 AM Arterial Blood pH (Temp corrected) 7.511 H Arterial Blood pCO2 (Temp correct) 32.7 L Arterial Blood pO2 (Temp corrected) 84.8 Arterial Blood HCO3 25.6 Arterial Blood Base Excess 2.8 Arterial Blood Oxygen Saturation 95.8 Rajendra Test ACCEPTAB Arterial Blood Gas Puncture Site Right Radial Arterial Blood Carboxyhemoglobin 0.2 Arterial Blood Methemoglobin 0.2 Blood Gas A-a O2 Differential 90.7 H Oxyhemoglobin Percent 95.4 Total Hemoglobin 10.2 L Blood Gas Temperature 37.0 Blood Gas Respiration Rate 18.0 Blood Gas Actual Respiration Rate 18 Blood Gas Modality VENT - AC FiO2 30.0 Blood Gas Tidal Volume 450.0 Blood Gas Low PEEP Setting 5.0 Blood Gas Notified Whom UP Blood Gas Notified Time 10/01/2016 5:28:21 AM Bedside Glucose 135 151 Test 10/01/16 12:27 Bedside Glucose 168 Medications Medications Current Medications Ondansetron HCl (Zofran Inj) 4 mg Q6H PRN IV NAUSEA AND/OR VOMITING; Start at 09:00 Acetaminophen (Tylenol Supp) 650 mg Q4H PRN [place] PAIN LEVEL 1-3 OR FEVER Last administered on 09/23/16 08:38; Admin Dose 650 MG; Start 09/21/16 at 09:00 Morphine Sulfate (morphine) 2 mg Q4H PRN IV PAIN LEVEL 7-10; Start 09/21/16 at 09:00 Pantoprazole (Protonix Iv) 40 mg DAILY@06 IV Last administered on 10/01/16 05: 32; Admin Dose 40 MG; Start 09/22/16 at 06:00 Lorazepam (Ativan) 1 mg Q2H PRN IV Seizures; Start 09/21/16 at 09:30 Amiodarone HCl (Cordarone) 200 mg DAILY PO Last administered on 10/01/16 09:02 ; Admin Dose 200 MG; Start 09/22/16 at 09:00 Digoxin (Digoxin) 0.125 mg DAILY PO Last administered on 10/01/16 09:02; Admin Dose 0.125 MG; Start 09/22/16 at 09:00 Losartan Potassium (Cozaar) 50 mg DAILY PO Last administered on 09/27/16 08:37 ; Admin Dose 50 MG; Start 09/22/16 at 09:00 Atorvastatin Calcium (Lipitor) 40 mg DAILY@21 PO Last administered on 21:04; Admin Dose 40 MG; Start 09/21/16 at 21:00 Miscellaneous Information 1 ea NOTE XX ; Start 09/21/16 at 10:00 Glucose (Glutose) 15 gm Q15M PRN PO DECREASED GLUCOSE; Start 09/21/16 at 10:00 Glucose (Glutose) 22.5 gm Q15M PRN PO DECREASED GLUCOSE; Start 09/21/16 at 10: 00 Dextrose (D50w Syringe) 25 ml Q15M PRN IV DECREASED GLUCOSE; Start 09/21/16 at 10:00 Dextrose (D50w Syringe) 50 ml Q15M PRN IV DECREASED GLUCOSE; Start 09/21/16 at 10:00 Glucagon (Glucagen) 1 mg Q15M PRN IM DECREASED GLUCOSE; Start 09/21/16 at 10:00 Glucose (Glutose) 15 gm Q15M PRN BUCCAL DECREASED GLUCOSE; Start 09/21/16 at 10 :00 Metoprolol Tartrate (Lopressor) 50 mg BID NGT Last administered on 09/28/16 21 :52; Admin Dose 50 MG; Start 09/22/16 at 10:00 Ferrous Sulfate 300 mg 300 mg BID NGT Last administered on 10/01/16 09:02; Admin Dose 300 MG; Start 09/22/16 at 10:00 Levetiracetam 100 ml @ 400 mls/hr BID IVPB Last administered on 10/01/16 09: 03; Admin Dose 400 MLS/HR; Start 09/24/16 at 14:30 Ceftriaxone Sodium (Rocephin) 50 ml @ 100 mls/hr Q24H IVPB Last administered on 10/01/16 12:42; Admin Dose 100 MLS/HR; Start 09/25/16 at 12:00 Diagnostic Test (Pha) (Accu-Chek) 1 ea 02 XX Last administered on 10/01/16 02: 00; Admin Dose 1 EA; Start 09/28/16 at 02:00 Insulin Aspart (Novolog Insulin Pen) (Adult SC Insulin - Moder... Q4 SC Last administered on 10/01/16 12:43; Admin Dose 4 UNIT; Start 09/27/16 at 13:00 Desmopressin Acetate (Ddavp) 2 mcg BID SC Last administered on 10/01/16 09:27 ; Admin Dose 2 MCG; Start 09/28/16 at 11:30 Insulin Glargine 15 unit 15 unit DAILY@20 SC Last administered on 09/30/16 21: 09; Admin Dose 15 UNIT; Start 09/28/16 at 20:00 Sodium Chloride (1/2 NS) 1,000 ml @ 30 mls/hr Q24H IV Last administered on 01:55; Admin Dose 30 MLS/HR; Start 09/29/16 at 17:00 IV Flush (NS 10 ml) 10 ml PRN PRN IV FLUSH LINE; Start 09/30/16 at 17:00 STEPHEN PAULA M.D. October 01, 2016 14:01
--- NOTE | 2016-10-01 15:57 | CONS ---
Date/Time of Note Date/Time of Note DATE: 10/01/16 TIME: 15:56 Assessment/Plan Assessment/Plan Chief Complaint/Hosp Course ID PROGRESS NOTE TOTAL ABX DAY #10=> Ceftriaxone s/p Vanco IV 24H INTERVAL SUMMARY * Obtunded -- Orally intubated->Vented, obtunded, afebrile, VSS, family in room report patient has not woke up "yet" * CXR: 09/28/16: IMPRESSION: * 1. Findings suggestive of pulmonary vascular congestion/interstitial edema with small bilateral pleural effusions. Overall, no significant interval change. * 2. Mild cardiomegaly and aortic atherosclerosis. * 3. Tubes and lines, as described above. PHYSICAL EXAMINATION: GENERAL: VSS, obtunded, no fevers HEENT: ETT-> Secure to Vent, NGT NECK: Supple CHEST: Equal chest rise bilaterally, without dyspnea on observation HEART: Irr/Irr, II/ aortic Murmur ABDOMEN: Soft, overweight EXTREMITIES: Warm, left hemiparesis SKIN: Warm, dry ID ASSESSMENT: 76 yo F W/PMHX HTN, HLD, DMII, AFIB-> on Apixaban w/pacemaker, Heart Failure... => BIB EMS 09/21/16 w/facial droop, weakness, left hemiplegia admitted to [facility] ICU with: 1. s/p Sepsis vs SIRS with hypothermic temperature 94.8,HTN Crisis,tachycardia , and acute ICH on presentation to ED * Tmax 100.8 in ED, Intubated in ED 09/21/16 * BCx 09/21/16 (+)Group D Strep (not enterococcus) => Repeat BCx negative * UA/Urine Cx (-) 2. Intracranial bleeding including intraparenchymal hematoma and bilateral subdural hematomas with midline shift. * Neurosurgery on the case-> ICP lowering measures including hyperventilation & SZS precautions. No surgical interventions as of now. 3. Accelerated hypertension-> Cardiology & Neuro on the case 4. Atrial fibrillation rate controlled, hx of SSS? Pacemaker in situ vs ICD?- > On amiodarone and digoxin. 5. Acute Heart Failure exacerbation w/pulmonary edema CXR on admission => Mixed Systolic + Diastolic w/EF ~30% with stage III and stage IV diastolic dysfunction. 6. Aspiration Pneumonitis suspected in setting acute ICH w/facial droop 7. Acute respiratory failure -> Orally intubated in ED 09/21/16 8. Hypothyroidism on Synthroid. 9. Hyperlipidemia, on statin 10. Type 2 diabetes mellitus. 11. Normocytic anemia w/history of iron deficiency 12. Thrombocytopenia 13. Multinodular appearance of the thyroid gland, larger on the right. (-)MRSA Nares Screen INVASIVES: *PIV, ETT, OGT, FC ABX ALLERGIES: KNDA CURRENT ABX: DAY #10 => Ceftriaxone s/p Vanco IV ID RECOMMENDATIONS: 1. Continue Ceftriaxone total of 14 days minimum = ABX of choice. 2. Will continue to monitor and follow. . LITERATURE REVIEW [email or web address] Streptococcus Group D Infections Clinical Presentation Updated: Feb 23, 2015 * Author: Supa Mora MD; Chief Brush Machine Setter: George Tafoya MD more... History Meningitis, peritonitis, septic arthritis, urinary tract infections, and sepsis due to group D streptococci have clinical features referable to the site of infection. When due to group D streptococcal infection, the clinical features do not differ from other bacterial causes of these infections. * Group D streptococcal endocarditis * Subacute endocarditis with persistent fever lasting days or weeks * Associated with nonspecific symptoms of systemic lupus erythematosus, including anorexia, weight loss, fatigue, night sweats, and weakness * Group D streptococcal bacteremia * Fever * Only possible to distinguish from endocarditis with patient history and echocardiography Treatment "Most S bovis isolates are susceptible to penicillin (JAIR = 0.1 mg/L) and should be treated with intravenous penicillin G or ceftriaxone for 4 weeks. An alternative for only uncomplicated cases of [place]-valve endocarditis is a 2- week course of therapy with a combination of penicillin G or ceftriaxone and gentamicin. For moderately susceptible isolates (JAIR >0.1 mg/L, JAIR = 0.5 mg/L) , penicillin or ceftriaxone and gentamicin should be administered for 4 weeks and 2 weeks, respectively. [13] " ```````````````````````````````````````````````````````````````````````````````` ```````````````````````````````````````````````````````````````````````````````` ```````````````````````````````````````````````````````````````````````````````` `````````````````` Problems: Consultation Date/Type/Reason Admit Date/Time September 21, 2016 at 08:29 Initial Consult Date 09/21/16 Type of Consultation: ID Referring Provider: LAINEY AGARWAL Exam/Review of Systems Vital Signs Vitals Vital Signs Date Time Temp Pulse Resp B/P Pulse Ox O2 Delivery O2 Flow Rate FiO2 10/01/16 15:29 80 18 98 30 10/01/16 15:00 112/57 Mechanical Ventilator 10/01/16 12:00 98.5 Intake and Output 09/30/16 09/30/16 10/01/16 15:00 23:00 07:00 Intake Total 950 ml 1610 ml 600 ml Output Total 261 ml 240 ml 330 ml Balance 689 ml 1370 ml 270 ml Results Result Diagram: 10/01/16 0410 10/01/16 0410 Results 24 hrs Laboratory Tests Test 09/30/16 17:05 09/30/16 20:55 09/30/16 21:16 10/01/16 02:30 Bedside Glucose 175 167 165 Sodium Level 155 H Test 10/01/16 04:10 10/01/16 05:00 10/01/16 05:37 10/01/16 08:28 White Blood Count 7.4 Red Blood Count 3.20 L Hemoglobin 9.0 L Hematocrit 30.3 L Mean Corpuscular Volume 94.7 Mean Corpuscular Hemoglobin 28.1 L Mean Corpuscular Hemoglobin Concent 29.7 L Red Cell Distribution Width 16.1 H Platelet Count 74 L Mean Platelet Volume Neutrophils % 82.3 H Lymphocytes % 8.4 L Monocytes % 7.5 Eosinophils % 1.0 Basophils % 0.1 Nucleated Red Blood Cells % 0.3 H Neutrophils # 6.1 Lymphocytes # 0.6 L Monocytes # 0.6 Eosinophils # 0.1 Basophils # 0.0 Nucleated Red Blood Cells # 0.0 Sodium Level 159 H Potassium Level 3.7 Chloride Level 120 H Carbon Dioxide Level 31 Anion Gap 12 Blood Urea Nitrogen 59 H Creatinine 1.10 H Glucose Level 135 Lactic Acid Level 1.7 Calcium Level 8.0 L Blood Gas Specimen Source Blood arterial Arterial Blood Date Drawn 10/01/2016 5:00:20 AM Arterial Blood pH (Temp corrected) 7.511 H Arterial Blood pCO2 (Temp correct) 32.7 L Arterial Blood pO2 (Temp corrected) 84.8 Arterial Blood HCO3 25.6 Arterial Blood Base Excess 2.8 Arterial Blood Oxygen Saturation 95.8 Rajendra Test ACCEPTAB Arterial Blood Gas Puncture Site Right Radial Arterial Blood Carboxyhemoglobin 0.2 Arterial Blood Methemoglobin 0.2 Blood Gas A-a O2 Differential 90.7 H Oxyhemoglobin Percent 95.4 Total Hemoglobin 10.2 L Blood Gas Temperature 37.0 Blood Gas Respiration Rate 18.0 Blood Gas Actual Respiration Rate 18 Blood Gas Modality VENT - AC FiO2 30.0 Blood Gas Tidal Volume 450.0 Blood Gas Low PEEP Setting 5.0 Blood Gas Notified Whom UP Blood Gas Notified Time 10/01/2016 5:28:21 AM Bedside Glucose 135 151 Test 10/01/16 12:27 Bedside Glucose 168 Medications Medications Current Medications Ondansetron HCl (Zofran Inj) 4 mg Q6H PRN IV NAUSEA AND/OR VOMITING; Start at 09:00 Acetaminophen (Tylenol Supp) 650 mg Q4H PRN [place] PAIN LEVEL 1-3 OR FEVER Last administered on 09/23/16 08:38; Admin Dose 650 MG; Start 09/21/16 at 09:00 Morphine Sulfate (morphine) 2 mg Q4H PRN IV PAIN LEVEL 7-10; Start 09/21/16 at 09:00 Pantoprazole (Protonix Iv) 40 mg DAILY@06 IV Last administered on 10/01/16 05: 32; Admin Dose 40 MG; Start 09/22/16 at 06:00 Lorazepam (Ativan) 1 mg Q2H PRN IV Seizures; Start 09/21/16 at 09:30 Amiodarone HCl (Cordarone) 200 mg DAILY PO Last administered on 10/01/16 09:02 ; Admin Dose 200 MG; Start 09/22/16 at 09:00 Digoxin (Digoxin) 0.125 mg DAILY PO Last administered on 10/01/16 09:02; Admin Dose 0.125 MG; Start 09/22/16 at 09:00 Losartan Potassium (Cozaar) 50 mg DAILY PO Last administered on 09/27/16 08:37 ; Admin Dose 50 MG; Start 09/22/16 at 09:00 Atorvastatin Calcium (Lipitor) 40 mg DAILY@21 PO Last administered on 21:04; Admin Dose 40 MG; Start 09/21/16 at 21:00 Miscellaneous Information 1 ea NOTE XX ; Start 09/21/16 at 10:00 Glucose (Glutose) 15 gm Q15M PRN PO DECREASED GLUCOSE; Start 09/21/16 at 10:00 Glucose (Glutose) 22.5 gm Q15M PRN PO DECREASED GLUCOSE; Start 09/21/16 at 10: 00 Dextrose (D50w Syringe) 25 ml Q15M PRN IV DECREASED GLUCOSE; Start 09/21/16 at 10:00 Dextrose (D50w Syringe) 50 ml Q15M PRN IV DECREASED GLUCOSE; Start 09/21/16 at 10:00 Glucagon (Glucagen) 1 mg Q15M PRN IM DECREASED GLUCOSE; Start 09/21/16 at 10:00 Glucose (Glutose) 15 gm Q15M PRN BUCCAL DECREASED GLUCOSE; Start 09/21/16 at 10 :00 Metoprolol Tartrate (Lopressor) 50 mg BID NGT Last administered on 09/28/16 21 :52; Admin Dose 50 MG; Start 09/22/16 at 10:00 Ferrous Sulfate 300 mg 300 mg BID NGT Last administered on 10/01/16 09:02; Admin Dose 300 MG; Start 09/22/16 at 10:00 Levetiracetam 100 ml @ 400 mls/hr BID IVPB Last administered on 10/01/16 09: 03; Admin Dose 400 MLS/HR; Start 09/24/16 at 14:30 Ceftriaxone Sodium (Rocephin) 50 ml @ 100 mls/hr Q24H IVPB Last administered on 10/01/16 12:42; Admin Dose 100 MLS/HR; Start 09/25/16 at 12:00 Diagnostic Test (Pha) (Accu-Chek) 1 ea 02 XX Last administered on 10/01/16 02: 00; Admin Dose 1 EA; Start 09/28/16 at 02:00 Insulin Aspart (Novolog Insulin Pen) (Adult SC Insulin - Moder... Q4 SC Last administered on 10/01/16 12:43; Admin Dose 4 UNIT; Start 09/27/16 at 13:00 Desmopressin Acetate (Ddavp) 2 mcg BID SC Last administered on 10/01/16 09:27 ; Admin Dose 2 MCG; Start 09/28/16 at 11:30 Insulin Glargine 15 unit 15 unit DAILY@20 SC Last administered on 09/30/16 21: 09; Admin Dose 15 UNIT; Start 09/28/16 at 20:00 Sodium Chloride (1/2 NS) 1,000 ml @ 30 mls/hr Q24H IV Last administered on 01:55; Admin Dose 30 MLS/HR; Start 09/29/16 at 17:00 IV Flush (NS 10 ml) 10 ml PRN PRN IV FLUSH LINE; Start 09/30/16 at 17:00 DANTE THOMPSON NP October 01, 2016 15:57
--- NOTE | 2016-10-01 17:45 | PN ---
Date/Time of Note Date/Time of Note DATE: 10/01/16 TIME: 17:44 Assessment/Plan VTE Prophylaxis VTE Prophylaxis Intervention: SCD's Assessment/Plan Chief Complaint/Hosp Course 1. Intracranial bleeding including intraparenchymal hematoma and bilateral subdural hematomas with midline shift-patient has poor mentation and is not alert and nonverbal 2. Accelerated hypertension. 3. Atrial fibrillation, rate controlled,, on amiodarone and digoxin. 4. Cardiomyopathy with ejection fraction of 30% with stage III and stage IV diastolic dysfunction. 5. Hypothyroidism. on synthroid 6. Hyperlipidemia. Continue statins. 7. Type 2 diabetes mellitus. Continue SSI. 8. Normocytic anemia. The patient has a history of iron deficiency. Continue iron supplements. 9. . Sepsis with underlying bacteremia. Continue antibiotics as per infectious diseases. DVT prophylaxis. Bilateral sequential compression devices. Gastrointestinal prophylaxis. Proton pump inhibitors. Plan: Continue ventilator care, will need to have a discussion with family about trach and PEG Neurosurgery following- No ongoing seizure activity on EEG. keep Na on higher side appropriately due to ICH- which switch to 1/2 NS at 30 cc /hr as agreed by neurosurgery, monitor Na and will adjust IVF appropriately SCD for DVT prophylaxis IV abx as per ID Problems: Subjective 24 Hr Interval Summary Subjective hx not possible: pt non-verbal Exam/Review of Systems Vital Signs Vitals Vital Signs Date Time Temp Pulse Resp B/P Pulse Ox O2 Delivery O2 Flow Rate FiO2 10/01/16 17:24 80 18 98 30 10/01/16 16:00 99.2 115/55 Mechanical Ventilator Intake and Output 09/30/16 09/30/16 10/01/16 15:00 23:00 07:00 Intake Total 950 ml 1610 ml 600 ml Output Total 261 ml 240 ml 330 ml Balance 689 ml 1370 ml 270 ml Exam Constitutional: non-verbal ENMT: intubated Respiratory: clear to auscultation Cardiovascular: regular rate and rhythm Gastrointestinal: soft, No distended Musculoskeletal: nl extremities to inspection Results Result Diagram: 10/01/16 0410 10/01/16 0410 Results 24 hrs Laboratory Tests Test 09/30/16 20:55 09/30/16 21:16 10/01/16 02:30 10/01/16 04:10 Sodium Level 155 H 159 H Bedside Glucose 167 165 White Blood Count 7.4 Red Blood Count 3.20 L Hemoglobin 9.0 L Hematocrit 30.3 L Mean Corpuscular Volume 94.7 Mean Corpuscular Hemoglobin 28.1 L Mean Corpuscular Hemoglobin Concent 29.7 L Red Cell Distribution Width 16.1 H Platelet Count 74 L Mean Platelet Volume Neutrophils % 82.3 H Lymphocytes % 8.4 L Monocytes % 7.5 Eosinophils % 1.0 Basophils % 0.1 Nucleated Red Blood Cells % 0.3 H Neutrophils # 6.1 Lymphocytes # 0.6 L Monocytes # 0.6 Eosinophils # 0.1 Basophils # 0.0 Nucleated Red Blood Cells # 0.0 Potassium Level 3.7 Chloride Level 120 H Carbon Dioxide Level 31 Anion Gap 12 Blood Urea Nitrogen 59 H Creatinine 1.10 H Glucose Level 135 Lactic Acid Level 1.7 Calcium Level 8.0 L Test 10/01/16 05:00 10/01/16 05:37 10/01/16 08:28 10/01/16 12:27 Blood Gas Specimen Source Blood arterial Arterial Blood Date Drawn 10/01/2016 5:00:20 AM Arterial Blood pH (Temp corrected) 7.511 H Arterial Blood pCO2 (Temp correct) 32.7 L Arterial Blood pO2 (Temp corrected) 84.8 Arterial Blood HCO3 25.6 Arterial Blood Base Excess 2.8 Arterial Blood Oxygen Saturation 95.8 Rajendra Test ACCEPTAB Arterial Blood Gas Puncture Site Right Radial Arterial Blood Carboxyhemoglobin 0.2 Arterial Blood Methemoglobin 0.2 Blood Gas A-a O2 Differential 90.7 H Oxyhemoglobin Percent 95.4 Total Hemoglobin 10.2 L Blood Gas Temperature 37.0 Blood Gas Respiration Rate 18.0 Blood Gas Actual Respiration Rate 18 Blood Gas Modality VENT - AC FiO2 30.0 Blood Gas Tidal Volume 450.0 Blood Gas Low PEEP Setting 5.0 Blood Gas Notified Whom UP Blood Gas Notified Time 10/01/2016 5:28:21 AM Bedside Glucose 135 151 168 Test 10/01/16 17:04 Bedside Glucose 155 Medications Medications Current Medications Ondansetron HCl (Zofran Inj) 4 mg Q6H PRN IV NAUSEA AND/OR VOMITING; Start at 09:00 Acetaminophen (Tylenol Supp) 650 mg Q4H PRN [place] PAIN LEVEL 1-3 OR FEVER Last administered on 09/23/16t 08:38; Admin Dose 650 MG; Start 09/21/16 at 09:00 Morphine Sulfate (morphine) 2 mg Q4H PRN IV PAIN LEVEL 7-10; Start 09/21/16 at 09:00 Pantoprazole (Protonix Iv) 40 mg DAILY@06 IV Last administered on 10/01/16 05: 32; Admin Dose 40 MG; Start 09/22/16 at 06:00 Lorazepam (Ativan) 1 mg Q2H PRN IV Seizures; Start 09/21/16 at 09:30 Amiodarone HCl (Cordarone) 200 mg DAILY PO Last administered on 10/01/16 09:02 ; Admin Dose 200 MG; Start 09/22/16 at 09:00 Digoxin (Digoxin) 0.125 mg DAILY PO Last administered on 10/01/16 09:02; Admin Dose 0.125 MG; Start 09/22/16 at 09:00 Losartan Potassium (Cozaar) 50 mg DAILY PO Last administered on 09/27/16 08:37 ; Admin Dose 50 MG; Start 09/22/16 at 09:00 Atorvastatin Calcium (Lipitor) 40 mg DAILY@21 PO Last administered on 21:04; Admin Dose 40 MG; Start 09/21/16 at 21:00 Miscellaneous Information 1 ea NOTE XX ; Start 09/21/16 at 10:00 Glucose (Glutose) 15 gm Q15M PRN PO DECREASED GLUCOSE; Start 09/21/16 at 10:00 Glucose (Glutose) 22.5 gm Q15M PRN PO DECREASED GLUCOSE; Start 09/21/16 at 10: 00 Dextrose (D50w Syringe) 25 ml Q15M PRN IV DECREASED GLUCOSE; Start 09/21/16 at 10:00 Dextrose (D50w Syringe) 50 ml Q15M PRN IV DECREASED GLUCOSE; Start 09/21/16 at 10:00 Glucagon (Glucagen) 1 mg Q15M PRN IM DECREASED GLUCOSE; Start 09/21/16 at 10:00 Glucose (Glutose) 15 gm Q15M PRN BUCCAL DECREASED GLUCOSE; Start 09/21/16 at 10 :00 Metoprolol Tartrate (Lopressor) 50 mg BID NGT Last administered on 09/28/16 21 :52; Admin Dose 50 MG; Start 09/22/16 at 10:00 Ferrous Sulfate 300 mg 300 mg BID NGT Last administered on 10/01/16 09:02; Admin Dose 300 MG; Start 09/22/16 at 10:00 Levetiracetam 100 ml @ 400 mls/hr BID IVPB Last administered on 10/01/16 09: 03; Admin Dose 400 MLS/HR; Start 09/24/16 at 14:30 Ceftriaxone Sodium (Rocephin) 50 ml @ 100 mls/hr Q24H IVPB Last administered on 10/01/16 12:42; Admin Dose 100 MLS/HR; Start 09/25/16 at 12:00 Diagnostic Test (Pha) (Accu-Chek) 1 ea 02 XX Last administered on 10/01/16 02: 00; Admin Dose 1 EA; Start 09/28/16 at 02:00 Insulin Aspart (Novolog Insulin Pen) (Adult SC Insulin - Moder... Q4 SC Last administered on 10/01/16 17:06; Admin Dose 2 UNIT; Start 09/27/16 at 13:00 Desmopressin Acetate (Ddavp) 2 mcg BID SC Last administered on 10/01/16 09:27 ; Admin Dose 2 MCG; Start 09/28/16 at 11:30 Insulin Glargine 15 unit 15 unit DAILY@20 SC Last administered on 09/30/16 21: 09; Admin Dose 15 UNIT; Start 09/28/16 at 20:00 Sodium Chloride (1/2 NS) 1,000 ml @ 30 mls/hr Q24H IV Last administered on 01:55; Admin Dose 30 MLS/HR; Start 09/29/16 at 17:00 IV Flush (NS 10 ml) 10 ml PRN PRN IV FLUSH LINE; Start 09/30/16 at 17:00 TIMA ESPOSITO October 01, 2016 17:45
[2016-10-01] MEDS: ATORVASTATIN 40 MG TAB PO SCH (21:08)
[2016-10-01] MEDS: INSULIN GLARGINE [LANtus] 3 ML PEN SC SCH (21:11)
[2016-10-02] VITALS (35 sets, daily range): BP systolic 89–133; BP diastolic 46–65; PULSE 80–81; RESP 18–21
[2016-10-02] MEDS: ACCU-CHEK XX SCH (04:00)
[2016-10-02] MEDS: Insulin NOVOLOG SS MODERATE Algorithm(NPO/TPN/ENTERAL FEEDS) SC SCH ×6 (04:44→20:11)
[2016-10-02] MEDS: LEVOTHYROXINE 100 MCG TAB PO SCH (05:45)
[2016-10-02] MEDS: PANTOPRAZOLE 40 MG INJ IV SCH (05:45)
[2016-10-02 06:11] LABS: ADD SCAN DIFF NO
[2016-10-02 06:24] LABS: ABNORMAL IP MESSAGE 1; BASOPHILS % 0.1 % (0.0-2.0); EOSINOPHILS # 0.1 10^3/ul (0.0-0.5); EOSINOPHILS % 0.9 % (0.0-7.0); HEMATOCRIT 30.3 % (37.0-47.0); LYMPHOCYTES # 0.7 10^3/ul (0.8-2.9); LYMPHOCYTES % 8.4 % (15.0-51.0); MEAN CORPUSCULAR HEMOGLOBIN 28.4 pg (29.0-33.0); MEAN CORPUSCULAR HGB CONC 29.7 g/dl (32.0-37.0); MEAN CORPUSCULAR VOLUME 95.6 fl (82.0-101.0); MONOCYTE # 0.6 10^3/ul (0.3-0.9); MONOCYTES % 7.5 % (0.0-11.0); NEUTROPHIL # 6.3 10^3/ul (1.6-7.5); NEUTROPHILS % 82.3 % (39.0-77.0); PLATELET COUNT 69 10^3/UL (140-415); RED BLOOD COUNT 3.17 10^6/ul (4.20-5.40); RED CELL DISTRIBUTION WIDTH 16.4 % (11.5-14.5); WHITE BLOOD COUNT 7.7 10^3/ul (4.8-10.8)
[2016-10-02 07:01] LABS: POTASSIUM 3.7 mmol/L (3.5-5.1)
[2016-10-02 07:03] LABS: CREATININE 1.09 mg/dl (0.44-1.00)
[2016-10-02 07:04] LABS: CALCIUM 7.9 mg/dl (8.4-10.2)
[2016-10-02] MEDS: DESMOPRESSIN 4 MCG INJ SC SCH ×2 (08:43→20:40)
[2016-10-02] MEDS: LEVETIRACETAM 500 MG (PMX) 100 ML IVPB SCH ×2 (08:43→20:40)
[2016-10-02] MEDS: FERROUS SULFATE 60 MG/ML 5ML CUP NGT SCH ×2 (08:43→20:39)
[2016-10-02] MEDS: DIGOXIN 0.125 MG TAB PO SCH (08:44)
[2016-10-02] MEDS: AMIODARONE 200 MG TAB PO SCH (08:44)
[2016-10-02] MEDS: METOPROLOL 50 MG TAB NGT SCH ×2 (08:45→20:39)
[2016-10-02] MEDS: LOSARTAN 50 MG TAB PO SCH (08:45)
--- NOTE | 2016-10-02 09:00 | PN ---
Date/Time of Note Date/Time of Note DATE: 10/02/16 TIME: 08:53 Assessment/Plan VTE Prophylaxis VTE Prophylaxis Intervention: SCD's Lines/Catheters IV Catheter Type (from Nrsg): PICC Line Central line still needed: Yes Urinary Cath still in place: Yes Reason Cath still needed: terminal illness/intractable pain Assessment/Plan Assessment/Plan 1. Intracranial bleeding including intraparenchymal hematoma and bilateral subdural hematomas with midline shift-patient has poor mentation and is not alert and nonverbal 2. Ventilator dependent respiratory failure secondary to encephalopathy from #1 3. Atrial fibrillation, rate controlled,, on amiodarone and digoxin. 4. Cardiomyopathy with ejection fraction of 30% with stage III and stage IV diastolic dysfunction: status post AICD 5. Hypernatremia likely 2/2 #1 : Per Neurosurgery, Correction of hypernatremia would be expected to cause increase in brain edema and thus ICP 6. Pulmonary congestion with probable underlying bilateral pneumonia 7. Type 2 diabetes mellitus. Continue SSI. 8. Normocytic anemia. The patient has a history of iron deficiency. Continue iron supplements. 9. Sepsis with Strep group B bacteremia 10. Thrombocytopenia 11. Chronic renal insufficiency 12. Accelerated hypertension: BP now controlled 13. Hyperlipidemia. Continue statins. 14. Hypothyroidism with a chronic multinodular goiter . on synthroid, Last TSH check showed good control Plan: * Continue ICU supportive care for now * Continue ventilator management and weaning/appreciate pulmonary input * Will slightly increase Lantus dosing for optimal blood sugar control * Patient continues on tube feeds and seems to be tolerating them. * Continue antibiotics as per infectious diseases. * Continue Keppra for seizure prophylaxis * Overall prognosis is likely poor / per neurosurgical notes, catheter angiogram is required to adequately define prognosis /follow-up further recommendations DVT prophylaxis. Bilateral sequential compression devices. Gastrointestinal prophylaxis. Proton pump inhibitors. Critical care time: Greater than 35 minutes Subjective 24 Hr Interval Summary Free Text/Dictation Nursing reports no acute overnight events. Exam/Review of Systems Vital Signs Vitals Vital Signs Date Time Temp Pulse Resp B/P Pulse Ox O2 Delivery O2 Flow Rate FiO2 10/02/16 08:00 99.3 80 18 109/56 98 Mechanical Ventilator 10/02/16 07:14 30 Intake and Output 10/01/16 10/01/16 10/02/16 15:00 23:00 07:00 Intake Total 740 ml 640 ml 560 ml Output Total 280 ml 185 ml 340 ml Balance 460 ml 455 ml 220 ml Exam GENERAL: This is an elderly female patient lying in bed, orally intubated and mechanically ventilated.but on no sedation HEENT: Head normocephalic and atraumatic. Eyes: Anicteric sclerae. Conjunctivae clear. Pupils are slightly sure reactive bilaterally. ENT: Nasal septum is midline. Oral mucosa is dry. Orally intubated. NECK: Supple. No JVD noticed. RESPIRATORY: Bilaterally diminished breath sounds. No adventitious breath sounds heard. On AC mode ventilation. CARDIAC: Regular rate and rhythm. S1, S2 heard. Grade III/ systolic ejection murmur. ABDOMEN: Soft, scaphoid. Nontender. Bowel sounds hypoactive in all 4 quadrants. GENITOURINARY: The patient has a Macedo catheter in place. EXTREMITIES: No cyanosis, no clubbing, no edema. Peripheral pulses are palpable. NEUROLOGIC: The patient is unresponsive. Has some purposeful movement of the left upper extremity. Withdrawal to pain of bilateral lower extremities and right upper extremity. Results Result Diagram: 10/02/16 0430 10/02/16 0430 Results 24 hrs Laboratory Tests Test 10/01/16 12:27 10/01/16 17:04 10/01/16 21:08 10/02/16 04:30 Bedside Glucose 168 155 162 White Blood Count 7.7 Red Blood Count 3.17 L Hemoglobin 9.0 L Hematocrit 30.3 L Mean Corpuscular Volume 95.6 Mean Corpuscular Hemoglobin 28.4 L Mean Corpuscular Hemoglobin Concent 29.7 L Red Cell Distribution Width 16.4 H Platelet Count 69 L Mean Platelet Volume Neutrophils % 82.3 H Lymphocytes % 8.4 L Monocytes % 7.5 Eosinophils % 0.9 Basophils % 0.1 Nucleated Red Blood Cells % 0.0 Neutrophils # 6.3 Lymphocytes # 0.7 L Monocytes # 0.6 Eosinophils # 0.1 Basophils # 0.0 Nucleated Red Blood Cells # 0.0 Sodium Level 155 H Potassium Level 3.7 Chloride Level 126 H Carbon Dioxide Level 31 Anion Gap 2 #L Blood Urea Nitrogen 64 H Creatinine 1.09 H Glucose Level 148 Calcium Level 7.9 L Test 10/02/16 04:42 Bedside Glucose 153 Medications Medications Current Medications Ondansetron HCl (Zofran Inj) 4 mg Q6H PRN IV NAUSEA AND/OR VOMITING; Start at 09:00 Acetaminophen (Tylenol Supp) [address] PAIN LEVEL 1-3 OR FEVER Last administered on 09/23/16 08:38; Admin Dose 650 MG; Start 09/21/16 at 09:00 Morphine Sulfate (morphine) 2 mg Q4H PRN IV PAIN LEVEL 7-10; Start 09/21/16 at 09:00 Pantoprazole (Protonix Iv) 40 mg DAILY@06 IV Last administered on 10/02/16 05: 45; Admin Dose 40 MG; Start 09/22/16 at 06:00 Lorazepam (Ativan) 1 mg Q2H PRN IV Seizures; Start 09/21/16 at 09:30 Amiodarone HCl (Cordarone) 200 mg DAILY PO Last administered on 10/02/16 08:44 ; Admin Dose 200 MG; Start 09/22/16 at 09:00 Digoxin (Digoxin) 0.125 mg DAILY PO Last administered on 10/02/16 08:44; Admin Dose 0.125 MG; Start 09/22/16 at 09:00 Losartan Potassium (Cozaar) 50 mg DAILY PO Last administered on 10/02/16 08:45 ; Admin Dose 50 MG; Start 09/22/16 at 09:00 Atorvastatin Calcium (Lipitor) 40 mg DAILY@21 PO Last administered on 21:08; Admin Dose 40 MG; Start 09/21/16 at 21:00 Miscellaneous Information 1 ea NOTE XX ; Start 09/21/16 at 10:00 Glucose (Glutose) 15 gm Q15M PRN PO DECREASED GLUCOSE; Start 09/21/16 at 10:00 Glucose (Glutose) 22.5 gm Q15M PRN PO DECREASED GLUCOSE; Start 09/21/16 at 10: 00 Dextrose (D50w Syringe) 25 ml Q15M PRN IV DECREASED GLUCOSE; Start 09/21/16 at 10:00 Dextrose (D50w Syringe) 50 ml Q15M PRN IV DECREASED GLUCOSE; Start 09/21/16 at 10:00 Glucagon (Glucagen) 1 mg Q15M PRN IM DECREASED GLUCOSE; Start 09/21/16 at 10:00 Glucose (Glutose) 15 gm Q15M PRN BUCCAL DECREASED GLUCOSE; Start 09/21/16 at 10 :00 Metoprolol Tartrate (Lopressor) 50 mg BID NGT Last administered on 10/02/16 08 :45; Admin Dose 50 MG; Start 09/22/16 at 10:00 Ferrous Sulfate 300 mg 300 mg BID NGT Last administered on 10/02/16 08:43; Admin Dose 300 MG; Start 09/22/16 at 10:00 Levetiracetam 100 ml @ 400 mls/hr BID IVPB Last administered on 10/02/16 08: 43; Admin Dose 400 MLS/HR; Start 09/24/16 at 14:30 Ceftriaxone Sodium (Rocephin) 50 ml @ 100 mls/hr Q24H IVPB Last administered on 10/01/16 12:42; Admin Dose 100 MLS/HR; Start 09/25/16 at 12:00 Diagnostic Test (Pha) (Accu-Chek) 1 ea 02 XX Last administered on 10/02/16 04: 00; Admin Dose 1 EA; Start 09/28/16 at 02:00 Insulin Aspart (Novolog Insulin Pen) (Adult SC Insulin - Moder... Q4 SC Last administered on 10/02/16 08:46; Admin Dose 4 UNIT; Start 09/27/16 at 13:00 Desmopressin Acetate (Ddavp) 2 mcg BID SC Last administered on 10/02/16 08:43 ; Admin Dose 2 MCG; Start 09/28/16 at 11:30 Insulin Glargine 15 unit 15 unit DAILY@20 SC Last administered on 10/01/16 21: 11; Admin Dose 15 UNIT; Start 09/28/16 at 20:00 Sodium Chloride (1/2 NS) 1,000 ml @ 30 mls/hr Q24H IV Last administered on 01:55; Admin Dose 30 MLS/HR; Start 09/29/16 at 17:00 IV Flush (NS 10 ml) 10 ml PRN PRN IV FLUSH LINE; Start 09/30/16 at 17:00 Procedures Procedures PROCEDURE: XR Chest. CLINICAL INDICATION: Dyspnea TECHNIQUE: Single frontal chest x-ray. COMPARISON: 09/30/2016 FINDINGS: Dense patchy consolidation and underlying congestion is seen scattered throughout the lungs, worse when compared to the prior study. Basilar pleural effusions are seen, also minimally worse in the interim. The heart size is enlarged. Left chest AICD device is stable. Endotracheal tube, nasogastric tube, right-sided PICC line are equally stable. There is no pneumothorax. IMPRESSION: 1. Worsening congestion and confluent consolidation throughout the lungs. 2. Slightly worsening bilateral basilar layering pleural effusions. 3. Cardiomegaly with left chest AICD device, stable. 4. Stable lines and tubes in good position without pneumothorax. RPTAT: HMJB .Shay Noe MD, MD Date Time Electronically viewed and signed by .Shay Noe MD, MD on 10/01/2016 11:55 .B/ CC: LINK KRAUSE MD, BOLAT[place]O M. October 02, 2016 09:00
--- NOTE | 2016-10-02 10:40 | CONS ---
Date/Time of Note Date/Time of Note DATE: 10/02/16 TIME: 10:37 Consult Date/Type/Reason Admit Date/Time September 21, 2016 at 08:29 Initial Consult Date 09/21/16 Type of Consultation: Pulm/CCM Ordering Provider: LAINEY AGARWAL Subjective Unresponsive and flaccid on vent Objective Vital Signs Date Time Temp Pulse Resp B/P Pulse Ox O2 Delivery O2 Flow Rate FiO2 10/02/16 10:00 80 18 91/51 98 Mechanical Ventilator 10/02/16 09:44 30 10/02/16 08:00 99.3 Intake and Output 10/01/16 10/01/16 10/02/16 15:00 23:00 07:00 Intake Total 740 ml 640 ml 560 ml Output Total 280 ml 185 ml 340 ml Balance 460 ml 455 ml 220 ml Exam HEENT: Neck supple; no JVD; no LAD; ET in place CVS: Irreg irreg, S1 and S2 CHEST: Clear ABD: Soft, NT, + BS EXT: No c/c ++ edema NEURO: Unresponsive; flaccid Results/Medications Result Diagram: 10/02/16 0430 10/02/16 0430 Results 24 hrs Laboratory Tests Test 10/01/16 12:27 10/01/16 17:04 10/01/16 21:08 10/02/16 04:30 Bedside Glucose 168 155 162 White Blood Count 7.7 Red Blood Count 3.17 L Hemoglobin 9.0 L Hematocrit 30.3 L Mean Corpuscular Volume 95.6 Mean Corpuscular Hemoglobin 28.4 L Mean Corpuscular Hemoglobin Concent 29.7 L Red Cell Distribution Width 16.4 H Platelet Count 69 L Mean Platelet Volume Neutrophils % 82.3 H Lymphocytes % 8.4 L Monocytes % 7.5 Eosinophils % 0.9 Basophils % 0.1 Nucleated Red Blood Cells % 0.0 Neutrophils # 6.3 Lymphocytes # 0.7 L Monocytes # 0.6 Eosinophils # 0.1 Basophils # 0.0 Nucleated Red Blood Cells # 0.0 Sodium Level 155 H Potassium Level 3.7 Chloride Level 126 H Carbon Dioxide Level 31 Anion Gap 2 #L Blood Urea Nitrogen 64 H Creatinine 1.09 H Glucose Level 148 Calcium Level 7.9 L Test 10/02/16 04:42 10/02/16 08:42 Bedside Glucose 153 183 Medications Current Medications Ondansetron HCl (Zofran Inj) 4 mg Q6H PRN IV NAUSEA AND/OR VOMITING; Start at 09:00 Acetaminophen (Tylenol Supp) 650 mg Q4H PRN [place] PAIN LEVEL 1-3 OR FEVER Last administered on 09/23/16 08:38; Admin Dose 650 MG; Start 09/21/16 at 09:00 Morphine Sulfate (morphine) 2 mg Q4H PRN IV PAIN LEVEL 7-10; Start 09/21/16 at 09:00 Pantoprazole (Protonix Iv) 40 mg DAILY@06 IV Last administered on 10/02/16 05: 45; Admin Dose 40 MG; Start 09/22/16 at 06:00 Lorazepam (Ativan) 1 mg Q2H PRN IV Seizures; Start 09/21/16 at 09:30 Amiodarone HCl (Cordarone) 200 mg DAILY PO Last administered on 10/02/16 08:44 ; Admin Dose 200 MG; Start 09/22/16 at 09:00 Digoxin (Digoxin) 0.125 mg DAILY PO Last administered on 10/02/16 08:44; Admin Dose 0.125 MG; Start 09/22/16 at 09:00 Losartan Potassium (Cozaar) 50 mg DAILY PO Last administered on 10/02/16 08:45 ; Admin Dose 50 MG; Start 09/22/16 at 09:00 Atorvastatin Calcium (Lipitor) 40 mg DAILY@21 PO Last administered on 21:08; Admin Dose 40 MG; Start 09/21/16 at 21:00 Miscellaneous Information 1 ea NOTE XX ; Start 09/21/16 at 10:00 Glucose (Glutose) 15 gm Q15M PRN PO DECREASED GLUCOSE; Start 09/21/16 at 10:00 Glucose (Glutose) 22.5 gm Q15M PRN PO DECREASED GLUCOSE; Start 09/21/16 at 10: 00 Dextrose (D50w Syringe) 25 ml Q15M PRN IV DECREASED GLUCOSE; Start 09/21/16 at 10:00 Dextrose (D50w Syringe) 50 ml Q15M PRN IV DECREASED GLUCOSE; Start 09/21/16 at 10:00 Glucagon (Glucagen) 1 mg Q15M PRN IM DECREASED GLUCOSE; Start 09/21/16 at 10:00 Glucose (Glutose) 15 gm Q15M PRN BUCCAL DECREASED GLUCOSE; Start 09/21/16 at 10 :00 Metoprolol Tartrate (Lopressor) 50 mg BID NGT Last administered on 10/02/16 08 :45; Admin Dose 50 MG; Start 09/22/16 at 10:00 Ferrous Sulfate 300 mg 300 mg BID NGT Last administered on 10/02/16 08:43; Admin Dose 300 MG; Start 09/22/16 at 10:00 Levetiracetam 100 ml @ 400 mls/hr BID IVPB Last administered on 10/02/16 08: 43; Admin Dose 400 MLS/HR; Start 09/24/16 at 14:30 Ceftriaxone Sodium (Rocephin) 50 ml @ 100 mls/hr Q24H IVPB Last administered on 10/01/16 12:42; Admin Dose 100 MLS/HR; Start 09/25/16 at 12:00 Diagnostic Test (Pha) (Accu-Chek) 1 ea 02 XX Last administered on 10/02/16 04: 00; Admin Dose 1 EA; Start 09/28/16 at 02:00 Insulin Aspart (Novolog Insulin Pen) (Adult SC Insulin - Moder... Q4 SC Last administered on 10/02/16 08:46; Admin Dose 4 UNIT; Start 09/27/16 at 13:00 Desmopressin Acetate (Ddavp) 2 mcg BID SC Last administered on 10/02/16 08:43 ; Admin Dose 2 MCG; Start 09/28/16 at 11:30 Insulin Glargine 15 unit 15 unit DAILY@20 SC Last administered on 10/01/16 21: 11; Admin Dose 15 UNIT; Start 09/28/16 at 20:00 Sodium Chloride (1/2 NS) 1,000 ml @ 30 mls/hr Q24H IV Last administered on 01:55; Admin Dose 30 MLS/HR; Start 09/29/16 at 17:00 IV Flush (NS 10 ml) 10 ml PRN PRN IV FLUSH LINE; Start 09/30/16 at 17:00 Assessment/Plan Additional Assessment/Plan IMP: 1. 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 2. Encephalopathy and seizures secondary to #1 3. Resp Failure/Vent Dependence 4. Cardiac arrhythmia, status post pacemaker placement in the past. 5. 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 Thrombocytopenia. 7. CHF RECS: 1. Limitation to liberation from MV is mental status, which is unlikely to improve 2. Continue abx per ID 3. Vent support 4. Keppra 5. Continue ddAVP; follow Na+ 6. Palliative Care to continue to work with family on addressing goals of care 35 min cc time LINK KRAUSE MD October 02, 2016 10:40
[2016-10-02] MEDS: CEFTRIAXONE 1 GM/50 ML (PMX) 50 ML IVPB SCH (12:08)
--- NOTE | 2016-10-02 12:25 | CONS ---
Date/Time of Note Date/Time of Note DATE: 10/02/16 TIME: 12:24 Assessment/Plan Assessment/Plan Additional Assessment/Plan Congestive heart failure exacerbation Cardiomyopathy with ejection fraction 25%, s/p Pacer/AICD Paroxysmal atrial fibrillation Subdural hematomas with midline shift Encephalopathy. Hypertension. Anemia. Thrombocytopenia. Hemodynamically stable Heart failure clinically compensated V paced at 80 bpm Continue Ventilatory support Avoid Volume Overload Continue diuresis with Lasix Continue Amiodarone and digoxin Continue Metoprolol Continue Losartan Continue Desmopressin Continue Antibiotics Continue Levothyroxine Continue Lipitor Continue aggressive pulmonary toiletry Continue GI and DVT Prophylaxis Poor Prognosis Consultation Date/Type/Reason Admit Date/Time September 21, 2016 at 08:29 Initial Consult Date 09/21/16 Type of Consultation: Pulm/CCM Referring Provider: LAINEY AGARWAL Exam/Review of Systems Vital Signs Vitals Vital Signs Date Time Temp Pulse Resp B/P Pulse Ox O2 Delivery O2 Flow Rate FiO2 10/02/16 11:41 80 18 97 30 10/02/16 10:00 91/51 Mechanical Ventilator 10/02/16 08:00 99.3 Intake and Output 10/01/16 10/01/16 10/02/16 14:59 22:59 06:59 Intake Total 660 ml 640 ml 640 ml Output Total 245 ml 220 ml 340 ml Balance 415 ml 420 ml 300 ml Exam Intubated, non responsive Neck No JVD CVS RRR, No m/r/g Chest Mechanical Breath sounds heard bilaterally Abd: Soft, BS sounds heard Ext No pedal edema Results Result Diagram: 10/02/16 0430 10/02/16 0430 Results 24 hrs Laboratory Tests Test 10/01/16 12:27 10/01/16 17:04 10/01/16 21:08 10/02/16 04:30 Bedside Glucose 168 155 162 White Blood Count 7.7 Red Blood Count 3.17 L Hemoglobin 9.0 L Hematocrit 30.3 L Mean Corpuscular Volume 95.6 Mean Corpuscular Hemoglobin 28.4 L Mean Corpuscular Hemoglobin Concent 29.7 L Red Cell Distribution Width 16.4 H Platelet Count 69 L Mean Platelet Volume Neutrophils % 82.3 H Lymphocytes % 8.4 L Monocytes % 7.5 Eosinophils % 0.9 Basophils % 0.1 Nucleated Red Blood Cells % 0.0 Neutrophils # 6.3 Lymphocytes # 0.7 L Monocytes # 0.6 Eosinophils # 0.1 Basophils # 0.0 Nucleated Red Blood Cells # 0.0 Sodium Level 155 H Potassium Level 3.7 Chloride Level 126 H Carbon Dioxide Level 31 Anion Gap 2 #L Blood Urea Nitrogen 64 H Creatinine 1.09 H Glucose Level 148 Calcium Level 7.9 L Test 10/02/16 04:42 10/02/16 08:42 10/02/16 12:09 Bedside Glucose 153 183 157 Medications Medications Current Medications Ondansetron HCl (Zofran Inj) 4 mg Q6H PRN IV NAUSEA AND/OR VOMITING; Start at 09:00 Acetaminophen (Tylenol Supp) 650 mg Q4H PRN [place] PAIN LEVEL 1-3 OR FEVER Last administered on 09/23/16 08:38; Admin Dose 650 MG; Start 09/21/16 at 09:00 Morphine Sulfate (morphine) 2 mg Q4H PRN IV PAIN LEVEL 7-10; Start 09/21/16 at 09:00 Pantoprazole (Protonix Iv) 40 mg DAILY@06 IV Last administered on 10/02/16 05: 45; Admin Dose 40 MG; Start 09/22/16 at 06:00 Lorazepam (Ativan) 1 mg Q2H PRN IV Seizures; Start 09/21/16 at 09:30 Amiodarone HCl (Cordarone) 200 mg DAILY PO Last administered on 10/02/16 08:44 ; Admin Dose 200 MG; Start 09/22/16 at 09:00 Digoxin (Digoxin) 0.125 mg DAILY PO Last administered on 10/02/16 08:44; Admin Dose 0.125 MG; Start 09/22/16 at 09:00 Losartan Potassium (Cozaar) 50 mg DAILY PO Last administered on 10/02/16 08:45 ; Admin Dose 50 MG; Start 09/22/16 at 09:00 Atorvastatin Calcium (Lipitor) 40 mg DAILY@21 PO Last administered on 21:08; Admin Dose 40 MG; Start 09/21/16 at 21:00 Miscellaneous Information 1 ea NOTE XX ; Start 09/21/16 at 10:00 Glucose (Glutose) 15 gm Q15M PRN PO DECREASED GLUCOSE; Start 09/21/16 at 10:00 Glucose (Glutose) 22.5 gm Q15M PRN PO DECREASED GLUCOSE; Start 09/21/16 at 10: 00 Dextrose (D50w Syringe) 25 ml Q15M PRN IV DECREASED GLUCOSE; Start 09/21/16 at 10:00 Dextrose (D50w Syringe) 50 ml Q15M PRN IV DECREASED GLUCOSE; Start 09/21/16 at 10:00 Glucagon (Glucagen) 1 mg Q15M PRN IM DECREASED GLUCOSE; Start 09/21/16 at 10:00 Glucose (Glutose) 15 gm Q15M PRN BUCCAL DECREASED GLUCOSE; Start 09/21/16 at 10 :00 Metoprolol Tartrate (Lopressor) 50 mg BID NGT Last administered on 10/02/16 08 :45; Admin Dose 50 MG; Start 09/22/16 at 10:00 Ferrous Sulfate 300 mg 300 mg BID NGT Last administered on 10/02/16 08:43; Admin Dose 300 MG; Start 09/22/16 at 10:00 Levetiracetam 100 ml @ 400 mls/hr BID IVPB Last administered on 10/02/16 08: 43; Admin Dose 400 MLS/HR; Start 09/24/16 at 14:30 Ceftriaxone Sodium (Rocephin) 50 ml @ 100 mls/hr Q24H IVPB Last administered on 10/02/16 12:08; Admin Dose 100 MLS/HR; Start 09/25/16 at 12:00 Diagnostic Test (Pha) (Accu-Chek) 1 ea 02 XX Last administered on 10/02/16 04: 00; Admin Dose 1 EA; Start 09/28/16 at 02:00 Insulin Aspart (Novolog Insulin Pen) (Adult SC Insulin - Moder... Q4 SC Last administered on 10/02/16 12:10; Admin Dose 2 UNIT; Start 09/27/16 at 13:00 Desmopressin Acetate (Ddavp) 2 mcg BID SC Last administered on 10/02/16 08:43 ; Admin Dose 2 MCG; Start 09/28/16 at 11:30 Insulin Glargine 15 unit 15 unit DAILY@20 SC Last administered on 10/01/16 21: 11; Admin Dose 15 UNIT; Start 09/28/16 at 20:00 Sodium Chloride (1/2 NS) 1,000 ml @ 30 mls/hr Q24H IV Last administered on t 01:55; Admin Dose 30 MLS/HR; Start 09/29/16 at 17:00 IV Flush (NS 10 ml) 10 ml PRN PRN IV FLUSH LINE; Start 09/30/16 at 17:00 STEPHEN PAULA M.D. October 02, 2016 12:25
[2016-10-02] MEDS: SOD CHLORIDE 0.45% 1,000 ML IV SCH (14:21)
--- NOTE | 2016-10-02 16:30 | CONS ---
Date/Time of Note Date/Time of Note DATE: 10/02/16 TIME: 16:29 Assessment/Plan Assessment/Plan Chief Complaint/Hosp Course ID PROGRESS NOTE TOTAL ABX DAY #11=> Ceftriaxone s/p Vanco IV 24H INTERVAL SUMMARY * Clincally status quo -- low grade temps,WBC normal * Obtunded -- Orally intubated->Vented, obtunded, afebrile, VSS, family in room watching for any sign of responsiveness PHYSICAL EXAMINATION: GENERAL: VSS, obtunded, no fevers HEENT: ETT-> Secure to Vent, NGT NECK: Supple CHEST: Equal chest rise bilaterally, without dyspnea on observation HEART: Irr/Irr, II/ aortic Murmur ABDOMEN: Soft, overweight EXTREMITIES: Warm, left hemiparesis SKIN: Warm, dry ID ASSESSMENT: 76 yo F W/PMHX HTN, HLD, DMII, AFIB-> on Apixaban w/pacemaker, Heart Failure... => BIB EMS 09/21/16 w/facial droop, weakness, left hemiplegia admitted to [facility] ICU with: 1. s/p Sepsis vs SIRS with hypothermic temperature 94.8,HTN Crisis,tachycardia , and acute ICH on presentation to ED * Tmax 100.8 in ED, Intubated in ED 09/21/16 * BCx 09/21/16 (+)Group D Strep (not enterococcus) => Repeat BCx negative * UA/Urine Cx (-) 2. Intracranial bleeding including intraparenchymal hematoma and bilateral subdural hematomas with midline shift. * Neurosurgery on the case-> ICP lowering measures including hyperventilation & SZS precautions. No surgical interventions as of now. 3. Accelerated hypertension-> Cardiology & Neuro on the case 4. Atrial fibrillation rate controlled, hx of SSS? Pacemaker in situ vs ICD?- > On amiodarone and digoxin. 5. Acute Heart Failure exacerbation w/pulmonary edema CXR on admission => Mixed Systolic + Diastolic w/EF ~30% with stage III and stage IV diastolic dysfunction. 6. Aspiration Pneumonitis suspected in setting acute ICH w/facial droop 7. Acute respiratory failure -> Orally intubated in ED 09/21/16 8. Hypothyroidism on Synthroid. 9. Hyperlipidemia, on statin 10. Type 2 diabetes mellitus. 11. Normocytic anemia w/history of iron deficiency 12. Thrombocytopenia 13. Multinodular appearance of the thyroid gland, larger on the right. (-)MRSA Nares Screen INVASIVES: *PIV, ETT, OGT, FC ABX ALLERGIES: KNDA CURRENT ABX: DAY #11 => Ceftriaxone s/p Vanco IV ID RECOMMENDATIONS: 1. Continue Ceftriaxone total of 14 days minimum = ABX of choice. 2. Will continue to monitor and follow. . LITERATURE REVIEW [email or web address] Streptococcus Group D Infections Clinical Presentation Updated: Feb 23, 2015 * Author: Supa Mora MD; Chief Falsework Builder: George Tafoya MD more... History Meningitis, peritonitis, septic arthritis, urinary tract infections, and sepsis due to group D streptococci have clinical features referable to the site of infection. When due to group D streptococcal infection, the clinical features do not differ from other bacterial causes of these infections. * Group D streptococcal endocarditis * Subacute endocarditis with persistent fever lasting days or weeks * Associated with nonspecific symptoms of systemic lupus erythematosus, including anorexia, weight loss, fatigue, night sweats, and weakness * Group D streptococcal bacteremia * Fever * Only possible to distinguish from endocarditis with patient history and echocardiography Treatment "Most S bovis isolates are susceptible to penicillin (JAIR = 0.1 mg/L) and should be treated with intravenous penicillin G or ceftriaxone for 4 weeks. An alternative for only uncomplicated cases of [place]-valve endocarditis is a 2- week course of therapy with a combination of penicillin G or ceftriaxone and gentamicin. For moderately susceptible isolates (JAIR >0.1 mg/L, JAIR = 0.5 mg/L) , penicillin or ceftriaxone and gentamicin should be administered for 4 weeks and 2 weeks, respectively. [13] " ```````````````````````````````````````````````````````````````````````````````` ```````````````````````````````````````````````````````````````````````````````` ```````````````````````````````````````````````````````````````````````````````` `````````````````` Problems: Consultation Date/Type/Reason Admit Date/Time September 21, 2016 at 08:29 Initial Consult Date 09/21/16 Type of Consultation: ID Referring Provider: LAINEY AGARWAL Exam/Review of Systems Vital Signs Vitals Vital Signs Date Time Temp Pulse Resp B/P Pulse Ox O2 Delivery O2 Flow Rate FiO2 10/02/16 16:00 99.1 80 18 97/50 98 Mechanical Ventilator 10/02/16 15:21 30 Intake and Output 10/01/16 10/01/16 10/02/16 15:00 23:00 07:00 Intake Total 740 ml 640 ml 560 ml Output Total 280 ml 185 ml 340 ml Balance 460 ml 455 ml 220 ml Results Result Diagram: 10/02/16 0430 10/02/16 0430 Results 24 hrs Laboratory Tests Test 10/01/16 17:04 10/01/16 21:08 10/02/16 04:30 10/02/16 04:42 Bedside Glucose 155 162 153 White Blood Count 7.7 Red Blood Count 3.17 L Hemoglobin 9.0 L Hematocrit 30.3 L Mean Corpuscular Volume 95.6 Mean Corpuscular Hemoglobin 28.4 L Mean Corpuscular Hemoglobin Concent 29.7 L Red Cell Distribution Width 16.4 H Platelet Count 69 L Mean Platelet Volume Neutrophils % 82.3 H Lymphocytes % 8.4 L Monocytes % 7.5 Eosinophils % 0.9 Basophils % 0.1 Nucleated Red Blood Cells % 0.0 Neutrophils # 6.3 Lymphocytes # 0.7 L Monocytes # 0.6 Eosinophils # 0.1 Basophils # 0.0 Nucleated Red Blood Cells # 0.0 Sodium Level 155 H Potassium Level 3.7 Chloride Level 126 H Carbon Dioxide Level 31 Anion Gap 2 #L Blood Urea Nitrogen 64 H Creatinine 1.09 H Glucose Level 148 Calcium Level 7.9 L Test 10/02/16 08:42 10/02/16 12:09 Bedside Glucose 183 157 Medications Medications Current Medications Ondansetron HCl (Zofran Inj) 4 mg Q6H PRN IV NAUSEA AND/OR VOMITING; Start at 09:00 Acetaminophen (Tylenol Supp) 650 mg Q4H PRN [place] PAIN LEVEL 1-3 OR FEVER Last administered on 09/23/16 08:38; Admin Dose 650 MG; Start 09/21/16 at 09:00 Morphine Sulfate (morphine) 2 mg Q4H PRN IV PAIN LEVEL 7-10; Start 09/21/16 at 09:00 Pantoprazole (Protonix Iv) 40 mg DAILY@06 IV Last administered on 10/02/16 05: 45; Admin Dose 40 MG; Start 09/22/16 at 06:00 Lorazepam (Ativan) 1 mg Q2H PRN IV Seizures; Start 09/21/16 at 09:30 Amiodarone HCl (Cordarone) 200 mg DAILY PO Last administered on 10/02/16 08:44 ; Admin Dose 200 MG; Start 09/22/16 at 09:00 Digoxin (Digoxin) 0.125 mg DAILY PO Last administered on 10/02/16 08:44; Admin Dose 0.125 MG; Start 09/22/16 at 09:00 Losartan Potassium (Cozaar) 50 mg DAILY PO Last administered on 10/02/16 08:45 ; Admin Dose 50 MG; Start 09/22/16 at 09:00 Atorvastatin Calcium (Lipitor) 40 mg DAILY@21 PO Last administered on 21:08; Admin Dose 40 MG; Start 09/21/16 at 21:00 Miscellaneous Information 1 ea NOTE XX ; Start 09/21/16 at 10:00 Glucose (Glutose) 15 gm Q15M PRN PO DECREASED GLUCOSE; Start 09/21/16 at 10:00 Glucose (Glutose) 22.5 gm Q15M PRN PO DECREASED GLUCOSE; Start 09/21/16 at 10: 00 Dextrose (D50w Syringe) 25 ml Q15M PRN IV DECREASED GLUCOSE; Start 09/21/16 at 10:00 Dextrose (D50w Syringe) 50 ml Q15M PRN IV DECREASED GLUCOSE; Start 09/21/16 at 10:00 Glucagon (Glucagen) 1 mg Q15M PRN IM DECREASED GLUCOSE; Start 09/21/16 at 10:00 Glucose (Glutose) 15 gm Q15M PRN BUCCAL DECREASED GLUCOSE; Start 09/21/16 at 10 :00 Metoprolol Tartrate (Lopressor) 50 mg BID NGT Last administered on 10/02/16 08 :45; Admin Dose 50 MG; Start 09/22/16 at 10:00 Ferrous Sulfate 300 mg 300 mg BID NGT Last administered on 10/02/16 08:43; Admin Dose 300 MG; Start 09/22/16 at 10:00 Levetiracetam 100 ml @ 400 mls/hr BID IVPB Last administered on 10/02/16 08: 43; Admin Dose 400 MLS/HR; Start 09/24/16 at 14:30 Ceftriaxone Sodium (Rocephin) 50 ml @ 100 mls/hr Q24H IVPB Last administered on 10/02/16 12:08; Admin Dose 100 MLS/HR; Start 09/25/16 at 12:00 Diagnostic Test (Pha) (Accu-Chek) 1 ea 02 XX Last administered on 10/02/16 04: 00; Admin Dose 1 EA; Start 09/28/16 at 02:00 Insulin Aspart (Novolog Insulin Pen) (Adult SC Insulin - Moder... Q4 SC Last administered on 10/02/16 12:10; Admin Dose 2 UNIT; Start 09/27/16 at 13:00 Desmopressin Acetate (Ddavp) 2 mcg BID SC Last administered on 10/02/16 08:43 ; Admin Dose 2 MCG; Start 09/28/16 at 11:30 Insulin Glargine 15 unit 15 unit DAILY@20 SC Last administered on 10/01/16 21: 11; Admin Dose 15 UNIT; Start 09/28/16 at 20:00 Sodium Chloride (1/2 NS) 1,000 ml @ 30 mls/hr Q24H IV Last administered on 14:21; Admin Dose 30 MLS/HR; Start 09/29/16 at 17:00 IV Flush (NS 10 ml) 10 ml PRN PRN IV FLUSH LINE; Start 09/30/16 at 17:00 DANTE THOMPSON NP October 02, 2016 16:30
[2016-10-02] MEDS: INSULIN GLARGINE [LANtus] 3 ML PEN SC SCH (20:10)
[2016-10-02] MEDS: ATORVASTATIN 40 MG TAB PO SCH (20:39)
[2016-10-03] VITALS (35 sets, daily range): BP systolic 90–129; BP diastolic 48–61; PULSE 80–82; RESP 18–20
[2016-10-03] MEDS: Insulin NOVOLOG SS MODERATE Algorithm(NPO/TPN/ENTERAL FEEDS) SC SCH ×6 (01:02→20:46)
[2016-10-03] MEDS: ACCU-CHEK XX SCH (01:34)
[2016-10-03] MEDS: PANTOPRAZOLE 40 MG INJ IV SCH (05:48)
[2016-10-03] MEDS: LEVOTHYROXINE 100 MCG TAB PO SCH (05:49)
[2016-10-03] MEDS: FERROUS SULFATE 60 MG/ML 5ML CUP NGT SCH ×2 (08:31→20:41)
[2016-10-03] MEDS: LEVETIRACETAM 500 MG (PMX) 100 ML IVPB SCH ×2 (08:32→20:41)
[2016-10-03] MEDS: DIGOXIN 0.125 MG TAB PO SCH (08:32)
[2016-10-03] MEDS: AMIODARONE 200 MG TAB PO SCH (08:32)
[2016-10-03] MEDS: METOPROLOL 50 MG TAB NGT SCH ×2 (08:32→20:43)
--- NOTE | 2016-10-03 08:32 | CONS ---
Date/Time of Note Date/Time of Note DATE: 10/03/16 TIME: 08:30 Assessment/Plan Assessment/Plan Additional Assessment/Plan 1. Congestive heart failure exacerbation, systolic, acute on chronic, by recent echocardiogram in 07/2016 revealing ejection fraction of 25%- now critically ill, ICD in place - euvolemic by exam. 2. Cardiomyopathy with decreased left ventricular ejection fraction, last ejection fraction approximately 25% by echocardiogram 07/2016. 3. History of automatic implantable cardioverter-defibrillator - no VT/Vf noted. 4. History of paroxysmal atrial fibrillation, previously on systemic anticoagulation- now w/ hematoma. 5. Subdural hematomas with midline shift and vasogenic edema- no sig change by serial CT done this AM 6. Encephalopathy- acute on chronic. 7. Hypertension. 8. Anemia. 9. Thrombocytopenia-some mild improvement - no active bleed now. 10.Hypernatremia Consultation Date/Type/Reason Admit Date/Time September 21, 2016 at 08:29 Initial Consult Date 09/21/16 Type of Consultation: ID Referring Provider: LAINEY AGARWAL 24 HR Interval Summary Free Text/Dictation Intubated, critically ill - VS satble on current Rx - awaiting family to decide on extent of care. ROS: No fever, no chills, no nausea, no vomiting, no diarrhea/constipation No recent weight changes No chest pain, no PND, no orthopnea No dizziness, blurred vision No thirst, no heat or cold intolerance (per nurse) Exam/Review of Systems Vital Signs Vitals Vital Signs Date Time Temp Pulse Resp B/P Pulse Ox O2 Delivery O2 Flow Rate FiO2 10/03/16 06:05 80 19 97 30 10/03/16 06:00 118/59 Mechanical Ventilator 10/03/16 04:00 98.0 Intake and Output 10/02/16 10/02/16 10/03/16 15:00 23:00 07:00 Intake Total 740 ml 870 ml 560 ml Output Total 290 ml 275 ml 145 ml Balance 450 ml 595 ml 415 ml Exam General: WN/WD/NAD, AOx0 HEENT: Unicetric/atraumatic/EOMI (does not follow commands) NECK: JVD elevated, no thyromegaly, intub Lymph: no lymphadenopathy HEART: regular with no S3, II/ systolic murmur at apex LUNGS: Coarse sounds ABD: soft, NT, ND, +BS : Intact Neuro: non focal SKIN: chronic changes EXT: trace edema Results Result Diagram: 10/02/16 0430 10/02/16 0430 Results 24 hrs Laboratory Tests Test 10/02/16 08:42 10/02/16 12:09 10/02/16 17:44 10/02/16 20:07 Bedside Glucose 183 157 151 143 Test 10/03/16 00:58 10/03/16 05:48 Bedside Glucose 156 154 Medications Medications Current Medications Ondansetron HCl (Zofran Inj) 4 mg Q6H PRN IV NAUSEA AND/OR VOMITING; Start at 09:00 Acetaminophen (Tylenol Supp) 650 mg Q4H PRN [place] PAIN LEVEL 1-3 OR FEVER Last administered on 09/23/16 08:38; Admin Dose 650 MG; Start 09/21/16 at 09:00 Morphine Sulfate (morphine) 2 mg Q4H PRN IV PAIN LEVEL 7-10; Start 09/21/16 at 09:00 Pantoprazole (Protonix Iv) 40 mg DAILY@06 IV Last administered on 10/03/16 05: 48; Admin Dose 40 MG; Start 09/22/16 at 06:00 Lorazepam (Ativan) 1 mg Q2H PRN IV Seizures; Start 09/21/16 at 09:30 Amiodarone HCl (Cordarone) 200 mg DAILY PO Last administered on 10/02/16 08:44 ; Admin Dose 200 MG; Start 09/22/16 at 09:00 Digoxin (Digoxin) 0.125 mg DAILY PO Last administered on 10/02/16 08:44; Admin Dose 0.125 MG; Start 09/22/16 at 09:00 Losartan Potassium (Cozaar) 50 mg DAILY PO Last administered on 10/02/16 08:45 ; Admin Dose 50 MG; Start 09/22/16 at 09:00 Atorvastatin Calcium (Lipitor) 40 mg DAILY@21 PO Last administered on 20:39; Admin Dose 40 MG; Start 09/21/16 at 21:00 Miscellaneous Information 1 ea NOTE XX ; Start 09/21/16 at 10:00 Glucose (Glutose) 15 gm Q15M PRN PO DECREASED GLUCOSE; Start 09/21/16 at 10:00 Glucose (Glutose) 22.5 gm Q15M PRN PO DECREASED GLUCOSE; Start 09/21/16 at 10: 00 Dextrose (D50w Syringe) 25 ml Q15M PRN IV DECREASED GLUCOSE; Start 09/21/16 at 10:00 Dextrose (D50w Syringe) 50 ml Q15M PRN IV DECREASED GLUCOSE; Start 09/21/16 at 10:00 Glucagon (Glucagen) 1 mg Q15M PRN IM DECREASED GLUCOSE; Start 09/21/16 at 10:00 Glucose (Glutose) 15 gm Q15M PRN BUCCAL DECREASED GLUCOSE; Start 09/21/16 at 10 :00 Metoprolol Tartrate (Lopressor) 50 mg BID NGT Last administered on 10/02/16 20 :39; Admin Dose 50 MG; Start 09/22/16 at 10:00 Ferrous Sulfate 300 mg 300 mg BID NGT Last administered on 10/02/16 20:39; Admin Dose 300 MG; Start 09/22/16 at 10:00 Levetiracetam 100 ml @ 400 mls/hr BID IVPB Last administered on 10/02/16 20: 40; Admin Dose 400 MLS/HR; Start 09/24/16 at 14:30 Ceftriaxone Sodium (Rocephin) 50 ml @ 100 mls/hr Q24H IVPB Last administered on 10/02/16 12:08; Admin Dose 100 MLS/HR; Start 09/25/16 at 12:00 Diagnostic Test (Pha) (Accu-Chek) 1 ea 02 XX Last administered on 10/02/16 04: 00; Admin Dose 1 EA; Start 09/28/16 at 02:00 Insulin Aspart (Novolog Insulin Pen) (Adult SC Insulin - Moder... Q4 SC Last administered on 10/03/16 05:50; Admin Dose 2 UNIT; Start 09/27/16 at 13:00 Desmopressin Acetate (Ddavp) 2 mcg BID SC Last administered on 10/02/16 20:40 ; Admin Dose 2 MCG; Start 09/28/16 at 11:30 Insulin Glargine 15 unit 15 unit DAILY@20 SC Last administered on 10/02/16 20: 10; Admin Dose 15 UNIT; Start 09/28/16 at 20:00 Sodium Chloride (1/2 NS) 1,000 ml @ 30 mls/hr Q24H IV Last administered on t 14:21; Admin Dose 30 MLS/HR; Start 09/29/16 at 17:00 IV Flush (NS 10 ml) 10 ml PRN PRN IV FLUSH LINE; Start 09/30/16 at 17:00 MILAGROS PRESSLEY MD October 03, 2016 08:32
[2016-10-03] MEDS: LOSARTAN 50 MG TAB PO SCH (08:33)
[2016-10-03] MEDS: DESMOPRESSIN 4 MCG INJ SC SCH ×2 (08:35→21:49)
--- NOTE | 2016-10-03 09:20 | CONS ---
Date/Time of Note Date/Time of Note DATE: 10/03/16 TIME: 09:16 Assessment/Plan Assessment/Plan Additional Assessment/Plan Ventilator setting; AC of 18, tidal volume 450, PEEP of 5, 30% FiO2. Assessment recommendations; next 1. Patient admitted for respiratory failure due to intra-cerebral bleed. With extremely poor mental status. 2. Stable seizure disorder. 3. History of cardiac arrhythmia, history of pacemaker placement. 4. Mild CHF. 5. Gram-negative bacteremia. Continue current treatment. Patient's family still has not decided about further plan of care. Patient's prognosis is dismal, however the family likely will opt for tracheostomy. Consultation Date/Type/Reason Admit Date/Time September 21, 2016 at 08:29 Initial Consult Date 09/21/16 Type of Consultation: Pulmonary/critical care Referring Provider: LAINEY AGARWAL 24 HR Interval Summary Free Text/Dictation Patient condition remains critical. Remains completely unresponsive. Has remained hemodynamically stable. No overt seizure activity reported. General exam; elderly woman, orally intubated, unresponsive. Currently in no distress. Exam/Review of Systems Vital Signs Vitals Vital Signs Date Time Temp Pulse Resp B/P Pulse Ox O2 Delivery O2 Flow Rate FiO2 10/03/16 08:00 80 10/03/16 06:05 19 97 30 10/03/16 06:00 118/59 Mechanical Ventilator 10/03/16 04:00 98.0 Intake and Output 10/02/16 10/02/16 10/03/16 15:00 23:00 07:00 Intake Total 740 ml 870 ml 560 ml Output Total 290 ml 275 ml 145 ml Balance 450 ml 595 ml 415 ml Exam HEENT examination; supple neck, no JVD. No lymphadenopathy. Midline trachea. No thyromegaly. Patient is edentulous. Has bilateral intraocular lens implants. Orally intubated. Chest examination; clear to auscultation. S1-S2 audible, no murmurs. Regular rhythm. There is a pacemaker in the left chest wall. Abdomen examination; soft, nondistended. No organomegaly. Bowel sounds audible. Extremity examination; no peripheral edema. RISK SPECIALIST examination; patient remains unresponsive. Results Result Diagram: 10/02/16 0430 10/02/16 0430 Results 24 hrs Laboratory Tests Test 10/02/16 12:09 10/02/16 17:44 10/02/16 20:07 10/03/16 00:58 Bedside Glucose 157 151 143 156 Test 10/03/16 05:48 10/03/16 08:31 Bedside Glucose 154 184 Medications Medications Current Medications Ondansetron HCl (Zofran Inj) 4 mg Q6H PRN IV NAUSEA AND/OR VOMITING; Start at 09:00 Acetaminophen (Tylenol Supp) 650 mg Q4H PRN [place] PAIN LEVEL 1-3 OR FEVER Last administered on 09/23/16 08:38; Admin Dose 650 MG; Start 09/21/16 at 09:00 Morphine Sulfate (morphine) 2 mg Q4H PRN IV PAIN LEVEL 7-10; Start 09/21/16 at 09:00 Pantoprazole (Protonix Iv) 40 mg DAILY@06 IV Last administered on 10/03/16 05: 48; Admin Dose 40 MG; Start 09/22/16 at 06:00 Lorazepam (Ativan) 1 mg Q2H PRN IV Seizures; Start 09/21/16 at 09:30 Amiodarone HCl (Cordarone) 200 mg DAILY PO Last administered on 10/03/16 08:32 ; Admin Dose 200 MG; Start 09/22/16 at 09:00 Digoxin (Digoxin) 0.125 mg DAILY PO Last administered on 10/03/16 08:32; Admin Dose 0.125 MG; Start 09/22/16 at 09:00 Losartan Potassium (Cozaar) 50 mg DAILY PO Last administered on 10/02/16 08:45 ; Admin Dose 50 MG; Start 09/22/16 at 09:00 Atorvastatin Calcium (Lipitor) 40 mg DAILY@21 PO Last administered on 20:39; Admin Dose 40 MG; Start 09/21/16 at 21:00 Miscellaneous Information 1 ea NOTE XX ; Start 09/21/16 at 10:00 Glucose (Glutose) 15 gm Q15M PRN PO DECREASED GLUCOSE; Start 09/21/16 at 10:00 Glucose (Glutose) 22.5 gm Q15M PRN PO DECREASED GLUCOSE; Start 09/21/16 at 10: 00 Dextrose (D50w Syringe) 25 ml Q15M PRN IV DECREASED GLUCOSE; Start 09/21/16 at 10:00 Dextrose (D50w Syringe) 50 ml Q15M PRN IV DECREASED GLUCOSE; Start 09/21/16 at 10:00 Glucagon (Glucagen) 1 mg Q15M PRN IM DECREASED GLUCOSE; Start 09/21/16 at 10:00 Glucose (Glutose) 15 gm Q15M PRN BUCCAL DECREASED GLUCOSE; Start 09/21/16 at 10 :00 Metoprolol Tartrate (Lopressor) 50 mg BID NGT Last administered on 10/02/16 20 :39; Admin Dose 50 MG; Start 09/22/16 at 10:00 Ferrous Sulfate 300 mg 300 mg BID NGT Last administered on 10/03/16 08:31; Admin Dose 300 MG; Start 09/22/16 at 10:00 Levetiracetam 100 ml @ 400 mls/hr BID IVPB Last administered on 10/03/16 08: 32; Admin Dose 400 MLS/HR; Start 09/24/16 at 14:30 Ceftriaxone Sodium (Rocephin) 50 ml @ 100 mls/hr Q24H IVPB Last administered on 10/02/16 12:08; Admin Dose 100 MLS/HR; Start 09/25/16 at 12:00 Diagnostic Test (Pha) (Accu-Chek) 1 ea 02 XX Last administered on 10/02/16 04: 00; Admin Dose 1 EA; Start 09/28/16 at 02:00 Insulin Aspart (Novolog Insulin Pen) (Adult SC Insulin - Moder... Q4 SC Last administered on 10/03/16 08:35; Admin Dose 4 UNIT; Start 09/27/16 at 13:00 Desmopressin Acetate (Ddavp) 2 mcg BID SC Last administered on 10/03/16 08:35 ; Admin Dose 2 MCG; Start 09/28/16 at 11:30 Insulin Glargine 15 unit 15 unit DAILY@20 SC Last administered on 10/02/16 20: 10; Admin Dose 15 UNIT; Start 09/28/16 at 20:00 Sodium Chloride (1/2 NS) 1,000 ml @ 30 mls/hr Q24H IV Last administered on 14:21; Admin Dose 30 MLS/HR; Start 09/29/16 at 17:00 IV Flush (NS 10 ml) 10 ml PRN PRN IV FLUSH LINE; Start 09/30/16 at 17:00 JAY LEONARDO October 03, 2016 09:20
--- NOTE | 2016-10-03 10:33 | PN ---
DATE: 10/03/2016 Case management is in the process of trying to set up a family conference. I have spoken to patient' s critical care nurse and she has given me an update about the patient's current medical condition, length of stay in the ICU. I will address issues with family members, including patient's code stat us and long-term prognosis and quality of life, also. Dictated By: SANDRA MEHTA MD, LP/JRARELL Conf#: [id number] DID#: [id number]
--- NOTE | 2016-10-03 12:32 | PN ---
Date/Time of Note Date/Time of Note DATE: 10/03/16 TIME: 12:27 Assessment/Plan VTE Prophylaxis VTE Prophylaxis Intervention: SCD's Lines/Catheters IV Catheter Type (from Nrsg): PICC Line Central line still needed: Yes Urinary Cath still in place: Yes Reason Cath still needed: other (indicate) Assessment/Plan Chief Complaint/Hosp Course Assessment/Plan 1. Intracranial bleeding including intraparenchymal hematoma and bilateral subdural hematomas with midline shift-patient has poor mentation and is not alert and nonverbal 2. Ventilator dependent respiratory failure secondary to encephalopathy from #1 3. Atrial fibrillation, rate controlled,, on amiodarone and digoxin. 4. Cardiomyopathy with ejection fraction of 30% with stage III and stage IV diastolic dysfunction: status post AICD 5. Hypernatremia likely 2/2 #1 : Per Neurosurgery, Correction of hypernatremia would be expected to cause increase in brain edema and thus ICP 6. Pulmonary congestion with probable underlying bilateral pneumonia 7. Type 2 diabetes mellitus. Continue Lantus and SSI. 8. Normocytic anemia. The patient has a history of iron deficiency. Continue iron supplements. 9. Sepsis with Strep group B bacteremia 10. Thrombocytopenia 11. Chronic renal insufficiency 12. Accelerated hypertension: BP now controlled 13. Hyperlipidemia. Continue statins. 14. Hypothyroidism with a chronic multinodular goiter . on synthroid, Last TSH check showed good control Plan: * Continue ICU supportive care for now * Continue ventilator management and weaning/appreciate pulmonary input * Will slightly increase Lantus dosing for optimal blood sugar control * Patient continues on tube feeds and seems to be tolerating them. * Continue antibiotics as per infectious diseases. * Continue Keppra for seizure prophylaxis * Overall prognosis is likely poor / per neurosurgical notes, catheter angiogram is required to adequately define prognosis /follow-up further recommendations DVT prophylaxis. Bilateral sequential compression devices. Gastrointestinal prophylaxis. Proton pump inhibitors. Problems: Subjective 24 Hr Interval Summary Free Text/Dictation Patient remains intubated and vent dependent Vent settin, FiO2 of 30% with PEEP of 5 NG tube feeding: At 50 cc Does not respond to verbal or pain stimuli Exam/Review of Systems Vital Signs Vitals Vital Signs Date Time Temp Pulse Resp B/P Pulse Ox O2 Delivery O2 Flow Rate FiO2 10/03/16 10:00 80 18 107/57 97 Mechanical Ventilator 10/03/16 08:00 30 10/03/16 08:00 99.1 Intake and Output 10/02/16 10/02/16 10/03/16 15:00 23:00 07:00 Intake Total 740 ml 870 ml 560 ml Output Total 290 ml 275 ml 145 ml Balance 450 ml 595 ml 415 ml Exam General: The patient is intubated HEENT: Atraumatic, normocephalic. The pupils are equal sluggish respond to light. Chest: Normal Lungs: Clear to auscultation bilaterally Heart: Normal S1-S2, Regular rhythm and rate. Abdomen: Soft , nontender, nondistended , bowel sounds are present. Extremities: Normal to inspection, +1 edema no cyanosis Neurologic: No meaningful neurologic examination finding Results Result Diagram: 10/02/1642910/02/16429 Results 24 hrs Laboratory Tests Test 10/02/16 17:44 10/02/16 20:07 10/03/16 00:58 10/03/16 05:48 Bedside Glucose 151 143 156 154 Test 10/03/16 08:31 Bedside Glucose 184 Medications Medications Current Medications Ondansetron HCl (Zofran Inj) 4 mg Q6H PRN IV NAUSEA AND/OR VOMITING; Start at 09:00 Acetaminophen (Tylenol Supp) 650 mg Q4H PRN [place] PAIN LEVEL 1-3 OR FEVER Last administered on 09/23/16 08:38; Admin Dose 650 MG; Start 09/21/16 at 09:00 Morphine Sulfate (morphine) 2 mg Q4H PRN IV PAIN LEVEL 7-10; Start 09/21/16 at 09:00 Pantoprazole (Protonix Iv) 40 mg DAILY@06 IV Last administered on 10/03/16 05: 48; Admin Dose 40 MG; Start 09/22/16 at 06:00 Lorazepam (Ativan) 1 mg Q2H PRN IV Seizures; Start 09/21/16 at 09:30 Amiodarone HCl (Cordarone) 200 mg DAILY PO Last administered on 10/03/16 08:32 ; Admin Dose 200 MG; Start 09/22/16 at 09:00 Digoxin (Digoxin) 0.125 mg DAILY PO Last administered on 10/03/16 08:32; Admin Dose 0.125 MG; Start 09/22/16 at 09:00 Losartan Potassium (Cozaar) 50 mg DAILY PO Last administered on 10/02/16 08:45 ; Admin Dose 50 MG; Start 09/22/16 at 09:00 Atorvastatin Calcium (Lipitor) 40 mg DAILY@21 PO Last administered on 20:39; Admin Dose 40 MG; Start 09/21/16 at 21:00 Miscellaneous Information 1 ea NOTE XX ; Start 09/21/16 at 10:00 Glucose (Glutose) 15 gm Q15M PRN PO DECREASED GLUCOSE; Start 09/21/16 at 10:00 Glucose (Glutose) 22.5 gm Q15M PRN PO DECREASED GLUCOSE; Start 09/21/16 at 10: 00 Dextrose (D50w Syringe) 25 ml Q15M PRN IV DECREASED GLUCOSE; Start 09/21/16 at 10:00 Dextrose (D50w Syringe) 50 ml Q15M PRN IV DECREASED GLUCOSE; Start 09/21/16 at 10:00 Glucagon (Glucagen) 1 mg Q15M PRN IM DECREASED GLUCOSE; Start 09/21/16 at 10:00 Glucose (Glutose) 15 gm Q15M PRN BUCCAL DECREASED GLUCOSE; Start 09/21/16 at 10 :00 Metoprolol Tartrate (Lopressor) 50 mg BID NGT Last administered on 10/02/16 20 :39; Admin Dose 50 MG; Start 09/22/16 at 10:00 Ferrous Sulfate 300 mg 300 mg BID NGT Last administered on 10/03/16 08:31; Admin Dose 300 MG; Start 09/22/16 at 10:00 Levetiracetam 100 ml @ 400 mls/hr BID IVPB Last administered on 10/03/16 08: 32; Admin Dose 400 MLS/HR; Start 09/24/16 at 14:30 Ceftriaxone Sodium (Rocephin) 50 ml @ 100 mls/hr Q24H IVPB Last administered on 10/02/16 12:08; Admin Dose 100 MLS/HR; Start 09/25/16 at 12:00 Diagnostic Test (Pha) (Accu-Chek) 1 ea 02 XX Last administered on 10/02/16 04: 00; Admin Dose 1 EA; Start 09/28/16 at 02:00 Insulin Aspart (Novolog Insulin Pen) (Adult SC Insulin - Moder... Q4 SC Last administered on 10/03/16 08:35; Admin Dose 4 UNIT; Start 09/27/16 at 13:00 Desmopressin Acetate (Ddavp) 2 mcg BID SC Last administered on 10/03/16 08:35 ; Admin Dose 2 MCG; Start 09/28/16 at 11:30 Insulin Glargine 15 unit 15 unit DAILY@20 SC Last administered on 10/02/16 20: 10; Admin Dose 15 UNIT; Start 09/28/16 at 20:00 Sodium Chloride (1/2 NS) 1,000 ml @ 30 mls/hr Q24H IV Last administered on 14:21; Admin Dose 30 MLS/HR; Start 09/29/16 at 17:00 IV Flush (NS 10 ml) 10 ml PRN PRN IV FLUSH LINE; Start 09/30/16 at 17:00 NACHO DAVE MD October 03, 2016 12:32
[2016-10-03] MEDS: CEFTRIAXONE 1 GM/50 ML (PMX) 50 ML IVPB SCH (12:39)
--- NOTE | 2016-10-03 13:13 | PN ---
DATE: 10/03/2016 SUBJECTIVE: No acute changes overnight. No fevers. The patient is lying comfortably in bed, non-c ommunicative. VITAL SIGNS: Temperature 99.1, pulse 80, respirations 18, blood pressure 107/57, saturation 97% on 30 FIO2. WBC 7.7, H and H 9 and 30.3, platelets 69, neutrophils 82.3. BUN 64, creatinine 1.09. INDWELLINGS: Endotracheal tube, NG tube, [place], PICC line placed on 09/30/2016 as well as left ches t AICD. ANTIMICROBIALS: Ceftriaxone. PHYSICAL EXAMINATION: GENERAL: Chronically ill-appearing, elderly woman who is in no distress. HEENT: Head atraumatic, normocephalic. Sclerae anicteric. Buccal mucosa dry. NECK: Supple, trachea midline. CHEST: Rise symmetrical. Breath sounds diminished to bases. HEART: S1, S2. ABDOMEN: Soft, bowel tones present. EXTREMITIES: Without cyanosis. ASSESSMENT: 1. Status post streptococcal bacteremia, completing antibiotics. 2. Acute respiratory failure. 3. Encephalopathy, status post intracranial hemorrhage. 4. Diabetes. PLAN: The patient remains unchanged. Completing antibiotics, 2 more days left. Continue present c are and follow recommendations of consultants. Dictated By: ANGELINA GAMEZ GEOGRAPHIC INFORMATION SYSTEM ANALYST for ARMAND ALVARES/JARRELL Conf#: [id number] DID#: [id number]
[2016-10-03] MEDS: SOD CHLORIDE 0.45% 1,000 ML IV SCH (17:00)
[2016-10-03] MEDS: ATORVASTATIN 40 MG TAB PO SCH (20:41)
[2016-10-03] MEDS: INSULIN GLARGINE [LANtus] 3 ML PEN SC SCH (20:45)
[2016-10-04] VITALS (35 sets, daily range): BP systolic 97–117; BP diastolic 49–61; PULSE 80; RESP 18–26
[2016-10-04] MEDS: SOD CHLORIDE 0.45% 1,000 ML IV SCH (00:50)
[2016-10-04] MEDS: Insulin NOVOLOG SS MODERATE Algorithm(NPO/TPN/ENTERAL FEEDS) SC SCH ×6 (01:31→20:33)
[2016-10-04] MEDS: ACCU-CHEK XX SCH (01:32)
[2016-10-04] MEDS: PANTOPRAZOLE 40 MG INJ IV SCH (05:13)
[2016-10-04 06:12] LABS: ADD SCAN DIFF NO
[2016-10-04 06:16] LABS: ABNORMAL IP MESSAGE 1; BASOPHILS % 0.1 % (0.0-2.0); EOSINOPHILS # 0.1 10^3/ul (0.0-0.5); EOSINOPHILS % 0.8 % (0.0-7.0); HEMATOCRIT 29.9 % (37.0-47.0); LYMPHOCYTES # 0.7 10^3/ul (0.8-2.9); LYMPHOCYTES % 8.4 % (15.0-51.0); MEAN CORPUSCULAR HEMOGLOBIN 28.7 pg (29.0-33.0); MEAN CORPUSCULAR HGB CONC 30.1 g/dl (32.0-37.0); MEAN CORPUSCULAR VOLUME 95.2 fl (82.0-101.0); MONOCYTE # 0.6 10^3/ul (0.3-0.9); MONOCYTES % 7.8 % (0.0-11.0); NEUTROPHIL # 6.6 10^3/ul (1.6-7.5); NEUTROPHILS % 82.3 % (39.0-77.0); RED BLOOD COUNT 3.14 10^6/ul (4.20-5.40); RED CELL DISTRIBUTION WIDTH 16.5 % (11.5-14.5)
[2016-10-04] MEDS: LEVOTHYROXINE 100 MCG TAB PO SCH (06:32)
[2016-10-04 06:36] LABS: PLATELET COUNT 76 10^3/UL (140-415)
[2016-10-04 06:44] LABS: CALCIUM 7.6 mg/dl (8.4-10.2); CREATININE 1.22 mg/dl (0.44-1.00); POTASSIUM 3.8 mmol/L (3.5-5.1)
[2016-10-04] MEDS: METOPROLOL 50 MG TAB NGT SCH ×2 (09:00→20:25)
[2016-10-04] MEDS: LOSARTAN 50 MG TAB PO SCH (09:00)
[2016-10-04] MEDS: LEVETIRACETAM 500 MG (PMX) 100 ML IVPB SCH ×2 (09:54→20:23)
[2016-10-04] MEDS: DIGOXIN 0.125 MG TAB PO SCH (09:54)
[2016-10-04] MEDS: FERROUS SULFATE 60 MG/ML 5ML CUP NGT SCH ×2 (09:54→20:23)
[2016-10-04] MEDS: AMIODARONE 200 MG TAB PO SCH (09:55)
[2016-10-04] MEDS: DESMOPRESSIN 4 MCG INJ SC SCH ×2 (09:56→20:26)
--- NOTE | 2016-10-04 11:00 | CONS ---
Date/Time of Note Date/Time of Note DATE: 10/04/16 TIME: 10:56 Assessment/Plan Assessment/Plan Additional Assessment/Plan Ventilator setting; AC of 18, tidal volume 450, PEEP of 5, 30% FiO2. Assessment recommendations; 1. Patient admitted for respiratory failure due to intracranial bleed. With extremely poor mental status. 2. 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 Patient on desmopressin subcu initially. 3. History of cardiac arrhythmia in the past status post pacemaker placement. 4. Gram-negative bacteremia. 5. No overt seizure activity noted. Continue supportive care. Prognosis is extremely poor. However the patient's family likely will opt for tracheostomy and G-tube placement. Consultation Date/Type/Reason Admit Date/Time September 21, 2016 at 08:29 Initial Consult Date 09/21/16 Type of Consultation: Pulmonary/critical care Referring Provider: LAINEY AGARWAL 24 HR Interval Summary Free Text/Dictation Patient condition remains critical. Remains unresponsive. Has remained hemodynamically stable. No overt seizure activity noted. General exam; elderly woman, orally intubated, unresponsive. Currently in no distress. Exam/Review of Systems Vital Signs Vitals Vital Signs Date Time Temp Pulse Resp B/P Pulse Ox O2 Delivery O2 Flow Rate FiO2 10/04/16 10:00 80 18 106/55 97 Mechanical Ventilator 10/04/16 08:00 99.3 10/04/16 05:12 30 Intake and Output 10/03/16 10/03/16 10/04/16 15:00 23:00 07:00 Intake Total 740 ml 840 ml 660 ml Output Total 335 ml 245 ml 235 ml Balance 405 ml 595 ml 425 ml Exam HEENT exam; supple neck, no JVD. No lymphadenopathy. Midline trachea. No thyromegaly. Patient is edentulous. Has bilateral intraocular lens implants. Orally intubated. Chest examination; diminished breath on lung bases bilaterally, upper lobes are clear to auscultation. S1-S2 audible, no murmurs. Regular rhythm. Abdomen examination; soft, no organomegaly. No distention. Bowel sounds audible. Extremity exam is; no peripheral edema. STEREOPLOTTER OPERATOR examination; patient remains completely unresponsive. Results Result Diagram: 10/04/16 0500 10/04/16 0500 Results 24 hrs Laboratory Tests Test 10/03/16 12:39 10/03/16 16:31 10/03/16 20:39 10/04/16 01:29 Bedside Glucose 189 157 152 159 Test 10/04/16 05:00 10/04/16 05:15 10/04/16 09:57 White Blood Count 8.0 Red Blood Count 3.14 L Hemoglobin 9.0 L Hematocrit 29.9 L Mean Corpuscular Volume 95.2 Mean Corpuscular Hemoglobin 28.7 L Mean Corpuscular Hemoglobin Concent 30.1 L Red Cell Distribution Width 16.5 H Platelet Count 76 L Mean Platelet Volume Neutrophils % 82.3 H Lymphocytes % 8.4 L Monocytes % 7.8 Eosinophils % 0.8 Basophils % 0.1 Nucleated Red Blood Cells % 0.0 Neutrophils # 6.6 Lymphocytes # 0.7 L Monocytes # 0.6 Eosinophils # 0.1 Basophils # 0.0 Nucleated Red Blood Cells # 0.0 Sodium Level 148 H Potassium Level 3.8 Chloride Level 117 H Carbon Dioxide Level 28 Anion Gap 7 L Blood Urea Nitrogen 83 H Creatinine 1.22 H Glucose Level 159 Calcium Level 7.6 L Bedside Glucose 161 175 Medications Medications Current Medications Ondansetron HCl (Zofran Inj) 4 mg Q6H PRN IV NAUSEA AND/OR VOMITING; Start at 09:00 Acetaminophen (Tylenol Supp) 650 mg Q4H PRN [place] PAIN LEVEL 1-3 OR FEVER Last administered on 09/23/16 08:38; Admin Dose 650 MG; Start 09/21/16 at 09:00 Morphine Sulfate (morphine) 2 mg Q4H PRN IV PAIN LEVEL 7-10; Start 09/21/16 at 09:00 Pantoprazole (Protonix Iv) 40 mg DAILY@06 IV Last administered on 10/04/16 05: 13; Admin Dose 40 MG; Start 09/22/16 at 06:00 Lorazepam (Ativan) 1 mg Q2H PRN IV Seizures; Start 09/21/16 at 09:30 Amiodarone HCl (Cordarone) 200 mg DAILY PO Last administered on 10/04/16 09:55 ; Admin Dose 200 MG; Start 09/22/16 at 09:00 Digoxin (Digoxin) 0.125 mg DAILY PO Last administered on 10/04/16 09:54; Admin Dose 0.125 MG; Start 09/22/16 at 09:00 Losartan Potassium (Cozaar) 50 mg DAILY PO Last administered on 10/02/16 08:45 ; Admin Dose 50 MG; Start 09/22/16 at 09:00 Atorvastatin Calcium (Lipitor) 40 mg DAILY@21 PO Last administered on 20:41; Admin Dose 40 MG; Start 09/21/16 at 21:00 Miscellaneous Information 1 ea NOTE XX ; Start 09/21/16 at 10:00 Glucose (Glutose) 15 gm Q15M PRN PO DECREASED GLUCOSE; Start 09/21/16 at 10:00 Glucose (Glutose) 22.5 gm Q15M PRN PO DECREASED GLUCOSE; Start 09/21/16 at 10: 00 Dextrose (D50w Syringe) 25 ml Q15M PRN IV DECREASED GLUCOSE; Start 09/21/16 at 10:00 Dextrose (D50w Syringe) 50 ml Q15M PRN IV DECREASED GLUCOSE; Start 09/21/16 at 10:00 Glucagon (Glucagen) 1 mg Q15M PRN IM DECREASED GLUCOSE; Start 09/21/16 at 10:00 Glucose (Glutose) 15 gm Q15M PRN BUCCAL DECREASED GLUCOSE; Start 09/21/16 at 10 :00 Metoprolol Tartrate (Lopressor) 50 mg BID NGT Last administered on 10/02/16 20 :39; Admin Dose 50 MG; Start 09/22/16 at 10:00 Ferrous Sulfate 300 mg 300 mg BID NGT Last administered on 10/04/16 09:54; Admin Dose 300 MG; Start 09/22/16 at 10:00 Levetiracetam 100 ml @ 400 mls/hr BID IVPB Last administered on 10/04/16 09: 54; Admin Dose 400 MLS/HR; Start 09/24/16 at 14:30 Ceftriaxone Sodium (Rocephin) 50 ml @ 100 mls/hr Q24H IVPB Last administered on 10/03/16 12:39; Admin Dose 100 MLS/HR; Start 09/25/16 at 12:00 Diagnostic Test (Pha) (Accu-Chek) 1 ea 02 XX Last administered on 10/04/16 01: 32; Admin Dose 1 EA; Start 09/28/16 at 02:00 Insulin Aspart (Novolog Insulin Pen) (Adult SC Insulin - Moder... Q4 SC Last administered on 10/04/16 10:00; Admin Dose 2 UNIT; Start 09/27/16 at 13:00 Desmopressin Acetate 2 mcg 2 mcg BID SC Last administered on 10/04/16 09:56; Admin Dose 2 MCG; Start 09/28/16 at 11:30 Sodium Chloride (1/2 NS) 1,000 ml @ 30 mls/hr Q24H IV Last administered on 00:50; Admin Dose 30 MLS/HR; Start 09/29/16 at 17:00 IV Flush (NS 10 ml) 10 ml PRN PRN IV FLUSH LINE; Start 09/30/16 at 17:00 Insulin Glargine (Lantus) 18 unit DAILY@20 SC Last administered on 10/03/16 20 :45; Admin Dose 18 UNIT; Start 10/03/16 at 20:00 JAY LEONARDO October 04, 2016 11:00
--- NOTE | 2016-10-04 12:11 | PN ---
Date/Time of Note Date/Time of Note DATE: 10/04/16 TIME: 12:00 Assessment/Plan VTE Prophylaxis VTE Prophylaxis Intervention: SCD's Lines/Catheters IV Catheter Type (from Nrs): PICC Line Central line still needed: Yes Urinary Cath still in place: Yes Reason Cath still needed: other (indicate) Assessment/Plan Chief Complaint/Hosp Course Assessment/Plan 1. Intracranial bleeding including intraparenchymal hematoma and bilateral subdural hematomas with midline shift-patient has poor mentation and is not alert and nonverbal 2. Ventilator dependent respiratory failure secondary to encephalopathy from #1 3. Atrial fibrillation, rate controlled,, on amiodarone and digoxin. 4. Cardiomyopathy with ejection fraction of 30% with stage III and stage IV diastolic dysfunction: status post AICD 5. Hypernatremia likely 2/2 #1 : Per Neurosurgery, Correction of hypernatremia would be expected to cause increase in brain edema and thus ICP 6. Pulmonary congestion with probable underlying bilateral pneumonia 7. Type 2 diabetes mellitus. Continue Lantus and SSI. 8. Normocytic anemia. The patient has a history of iron deficiency. Continue iron supplements. 9. Sepsis with Strep group B bacteremia 10. Thrombocytopenia 11. Chronic renal insufficiency 12. Accelerated hypertension: BP now controlled 13. Hyperlipidemia. Continue statins. 14. Hypothyroidism with a chronic multinodular goiter . on synthroid, Last TSH check showed good control Plan: * Continue ICU supportive care for now * Continue ventilator management and weaning/appreciate pulmonary input * Continue Lantus dosing for optimal blood sugar control * Patient continues on tube feeds and seems to be tolerating them. * Continue antibiotics as per infectious diseases. * Continue Keppra for seizure prophylaxis * Overall prognosis is likely poor / per neurosurgical notes, catheter angiogram is required to adequately define prognosis /follow-up further recommendations DVT prophylaxis. Bilateral sequential compression devices. Gastrointestinal prophylaxis. Proton pump inhibitors. Social service and case making machine operator consult for family conference Prognosis: Poor Problems: Subjective 24 Hr Interval Summary Free Text/Dictation No acute changes Patient does not respond to pain or verbal stimuli Intubated No sedation NG tube in place Exam/Review of Systems Vital Signs Vitals Vital Signs Date Time Temp Pulse Resp B/P Pulse Ox O2 Delivery O2 Flow Rate FiO2 10/04/16 11:00 80 18 106/49 97 Mechanical Ventilator 10/04/16 08:00 99.3 10/04/16 05:12 30 Intake and Output 10/03/16 10/03/16 10/04/16 15:00 23:00 07:00 Intake Total 740 ml 840 ml 660 ml Output Total 335 ml 245 ml 235 ml Balance 405 ml 595 ml 425 ml Exam General: The patient is intubated HEENT: Atraumatic, normocephalic. The pupils are equal although sluggish Chest: Normal expansion of the thorax during inspiration Lungs: Decreased breath sounds bilateral lower lung field Heart: Normal S1-S2, Regular rhythm and rate. Abdomen: Soft , nondistended , bowel sounds are present. Extremities: No deformity, +1 edema no cyanosis Neurologic: No meaningful neurologic examination finding Results Result Diagram: 10/04/16 0500 10/04/16 0500 Results 24 hrs Laboratory Tests Test 10/03/16 12:39 10/03/16 16:31 10/03/16 20:39 10/04/16 01:29 Bedside Glucose 189 157 152 159 Test 10/04/16 05:00 10/04/16 05:15 10/04/16 09:57 White Blood Count 8.0 Red Blood Count 3.14 L Hemoglobin 9.0 L Hematocrit 29.9 L Mean Corpuscular Volume 95.2 Mean Corpuscular Hemoglobin 28.7 L Mean Corpuscular Hemoglobin Concent 30.1 L Red Cell Distribution Width 16.5 H Platelet Count 76 L Mean Platelet Volume Neutrophils % 82.3 H Lymphocytes % 8.4 L Monocytes % 7.8 Eosinophils % 0.8 Basophils % 0.1 Nucleated Red Blood Cells % 0.0 Neutrophils # 6.6 Lymphocytes # 0.7 L Monocytes # 0.6 Eosinophils # 0.1 Basophils # 0.0 Nucleated Red Blood Cells # 0.0 Sodium Level 148 H Potassium Level 3.8 Chloride Level 117 H Carbon Dioxide Level 28 Anion Gap 7 L Blood Urea Nitrogen 83 H Creatinine 1.22 H Glucose Level 159 Calcium Level 7.6 L Bedside Glucose 161 175 Medications Medications Current Medications Ondansetron HCl (Zofran Inj) 4 mg Q6H PRN IV NAUSEA AND/OR VOMITING; Start at 09:00 Acetaminophen (Tylenol Supp) 650 mg Q4H PRN [place] PAIN LEVEL 1-3 OR FEVER Last administered on 09/23/16t 08:38; Admin Dose 650 MG; Start 09/21/16 at 09:00 Morphine Sulfate (morphine) 2 mg Q4H PRN IV PAIN LEVEL 7-10; Start 09/21/16 at 09:00 Pantoprazole (Protonix Iv) 40 mg DAILY@06 IV Last administered on 10/04/16 05: 13; Admin Dose 40 MG; Start 09/22/16 at 06:00 Lorazepam (Ativan) 1 mg Q2H PRN IV Seizures; Start 09/21/16 at 09:30 Amiodarone HCl (Cordarone) 200 mg DAILY PO Last administered on 10/04/16 09:55 ; Admin Dose 200 MG; Start 09/22/16 at 09:00 Digoxin (Digoxin) 0.125 mg DAILY PO Last administered on 10/04/16 09:54; Admin Dose 0.125 MG; Start 09/22/16 at 09:00 Losartan Potassium (Cozaar) 50 mg DAILY PO Last administered on 10/02/16 08:45 ; Admin Dose 50 MG; Start 09/22/16 at 09:00 Atorvastatin Calcium (Lipitor) 40 mg DAILY@21 PO Last administered on 20:41; Admin Dose 40 MG; Start 09/21/16 at 21:00 Miscellaneous Information 1 ea NOTE XX ; Start 09/21/16 at 10:00 Glucose (Glutose) 15 gm Q15M PRN PO DECREASED GLUCOSE; Start 09/21/16 at 10:00 Glucose (Glutose) 22.5 gm Q15M PRN PO DECREASED GLUCOSE; Start 09/21/16 at 10: 00 Dextrose (D50w Syringe) 25 ml Q15M PRN IV DECREASED GLUCOSE; Start 09/21/16 at 10:00 Dextrose (D50w Syringe) 50 ml Q15M PRN IV DECREASED GLUCOSE; Start 09/21/16 at 10:00 Glucagon (Glucagen) 1 mg Q15M PRN IM DECREASED GLUCOSE; Start 09/21/16 at 10:00 Glucose (Glutose) 15 gm Q15M PRN BUCCAL DECREASED GLUCOSE; Start 09/21/16 at 10 :00 Metoprolol Tartrate (Lopressor) 50 mg BID NGT Last administered on 10/02/16 20 :39; Admin Dose 50 MG; Start 09/22/16 at 10:00 Ferrous Sulfate 300 mg 300 mg BID NGT Last administered on 10/04/16 09:54; Admin Dose 300 MG; Start 09/22/16 at 10:00 Levetiracetam 100 ml @ 400 mls/hr BID IVPB Last administered on 10/04/16 09: 54; Admin Dose 400 MLS/HR; Start 09/24/16 at 14:30 Ceftriaxone Sodium (Rocephin) 50 ml @ 100 mls/hr Q24H IVPB Last administered on 10/03/16 12:39; Admin Dose 100 MLS/HR; Start 09/25/16 at 12:00 Diagnostic Test (Pha) (Accu-Chek) 1 ea 02 XX Last administered on 10/04/16 01: 32; Admin Dose 1 EA; Start 09/28/16 at 02:00 Insulin Aspart (Novolog Insulin Pen) (Adult SC Insulin - Moder... Q4 SC Last administered on 10/04/16 10:00; Admin Dose 2 UNIT; Start 09/27/16 at 13:00 Desmopressin Acetate 2 mcg 2 mcg BID SC Last administered on 10/04/16 09:56; Admin Dose 2 MCG; Start 09/28/16 at 11:30 Sodium Chloride (1/2 NS) 1,000 ml @ 30 mls/hr Q24H IV Last administered on 00:50; Admin Dose 30 MLS/HR; Start 09/29/16 at 17:00 IV Flush (NS 10 ml) 10 ml PRN PRN IV FLUSH LINE; Start 09/30/16 at 17:00 Insulin Glargine (Lantus) 18 unit DAILY@20 SC Last administered on 10/03/16 20 :45; Admin Dose 18 UNIT; Start 10/03/16 at 20:00 NACHO DAVE MD October 04, 2016 12:11
--- NOTE | 2016-10-04 12:45 | CONS ---
Date/Time of Note Date/Time of Note DATE: 10/04/16 TIME: 12:40 Assessment/Plan Assessment/Plan Chief Complaint/Hosp Course IMPRESSION: 1. Congestive heart failure exacerbation, systolic, acute on chronic, by recent echocardiogram in 07/2016 revealing ejection fraction of 25%. 2. Cardiomyopathy with decreased left ventricular ejection fraction, last ejection fraction approximately 25% by echocardiogram 07/2016. 3. History of automatic implantable cardioverter-defibrillator. 4. History of paroxysmal atrial fibrillation, previously on systemic anticoagulation. 5. Subdural hematomas with midline shift and vasogenic edema- no sig change by serial CT done this AM 6. Encephalopathy. 7. Hypertension. 8. Anemia. 9. Thrombocytopenia 10.Hypernatremia Recc: -Tele -serial ecg's -Follow [facility] recomendations for hypertonic saline/hypoventilation/increased na levels -Follow MS closly -Continue BB/losartan -Continue amio/digoxin -Follow volume status closely -[facility] following -Palliative care following/family deciding upon direction of care Problems: Consultation Date/Type/Reason Admit Date/Time September 21, 2016 at 08:29 Initial Consult Date 09/21/16 Type of Consultation: Cardiology Reason for Consultation cardiomyopathy Referring Provider: LAINEY AGARWAL Exam/Review of Systems Vital Signs Vitals Vital Signs Date Time Temp Pulse Resp B/P Pulse Ox O2 Delivery O2 Flow Rate FiO2 10/04/16 11:00 80 18 106/49 97 Mechanical Ventilator 10/04/16 08:00 99.3 10/04/16 05:12 30 Intake and Output 10/03/16 10/03/16 10/04/16 15:00 23:00 07:00 Intake Total 740 ml 840 ml 660 ml Output Total 335 ml 245 ml 235 ml Balance 405 ml 595 ml 425 ml Exam Review of Systems: CONSTITUTIONAL: No fevers, chills. PULMONARY: intubated CARDIOVASCULAR: No obvious chest pain/palpitations GASTROINTESTINAL: No nausea/vomiting. GENITOURINARY: No hematuria/dysuria. MUSCULOSKELETAL: No obvious myagias/arthalgias. PSYCHIATRIC: The patient denies depression. NEUROLOGIC: No weakness Constitutional: alert Psych: no complaints Head: normocephalic ENMT: mucosa pink and moist Neck: jvd, supple Respiratory: diminished breath sounds Cardiovascular: regular rate and rhythm Gastrointestinal: non-tender, soft Musculoskeletal: muscle tone (normal) Extremities: edema (none) Neurological: other (No focal deficits) Results Result Diagram: 10/04/16 0500 10/04/16 0500 Results 24 hrs Laboratory Tests Test 10/03/16 16:31 10/03/16 20:39 10/04/16 01:29 10/04/16 05:00 Bedside Glucose 157 152 159 White Blood Count 8.0 Red Blood Count 3.14 L Hemoglobin 9.0 L Hematocrit 29.9 L Mean Corpuscular Volume 95.2 Mean Corpuscular Hemoglobin 28.7 L Mean Corpuscular Hemoglobin Concent 30.1 L Red Cell Distribution Width 16.5 H Platelet Count 76 L Mean Platelet Volume Neutrophils % 82.3 H Lymphocytes % 8.4 L Monocytes % 7.8 Eosinophils % 0.8 Basophils % 0.1 Nucleated Red Blood Cells % 0.0 Neutrophils # 6.6 Lymphocytes # 0.7 L Monocytes # 0.6 Eosinophils # 0.1 Basophils # 0.0 Nucleated Red Blood Cells # 0.0 Sodium Level 148 H Potassium Level 3.8 Chloride Level 117 H Carbon Dioxide Level 28 Anion Gap 7 L Blood Urea Nitrogen 83 H Creatinine 1.22 H Glucose Level 159 Calcium Level 7.6 L Test 10/04/16 05:15 10/04/16 09:57 Bedside Glucose 161 175 Medications Medications Current Medications Ondansetron HCl (Zofran Inj) 4 mg Q6H PRN IV NAUSEA AND/OR VOMITING; Start at 09:00 Acetaminophen (Tylenol Supp) 650 mg Q4H PRN [place] PAIN LEVEL 1-3 OR FEVER Last administered on 09/23/16 08:38; Admin Dose 650 MG; Start 09/21/16 at 09:00 Morphine Sulfate (morphine) 2 mg Q4H PRN IV PAIN LEVEL 7-10; Start 09/21/16 at 09:00 Pantoprazole (Protonix Iv) 40 mg DAILY@06 IV Last administered on 10/04/16 05: 13; Admin Dose 40 MG; Start 09/22/16 at 06:00 Lorazepam (Ativan) 1 mg Q2H PRN IV Seizures; Start 09/21/16 at 09:30 Amiodarone HCl (Cordarone) 200 mg DAILY PO Last administered on 10/04/16 09:55 ; Admin Dose 200 MG; Start 09/22/16 at 09:00 Digoxin (Digoxin) 0.125 mg DAILY PO Last administered on 10/04/16 09:54; Admin Dose 0.125 MG; Start 09/22/16 at 09:00 Losartan Potassium (Cozaar) 50 mg DAILY PO Last administered on 10/02/16 08:45 ; Admin Dose 50 MG; Start 09/22/16 at 09:00 Atorvastatin Calcium (Lipitor) 40 mg DAILY@21 PO Last administered on 20:41; Admin Dose 40 MG; Start 09/21/16 at 21:00 Miscellaneous Information 1 ea NOTE XX ; Start 09/21/16 at 10:00 Glucose (Glutose) 15 gm Q15M PRN PO DECREASED GLUCOSE; Start 09/21/16 at 10:00 Glucose (Glutose) 22.5 gm Q15M PRN PO DECREASED GLUCOSE; Start 09/21/16 at 10: 00 Dextrose (D50w Syringe) 25 ml Q15M PRN IV DECREASED GLUCOSE; Start 09/21/16 at 10:00 Dextrose (D50w Syringe) 50 ml Q15M PRN IV DECREASED GLUCOSE; Start 09/21/16 at 10:00 Glucagon (Glucagen) 1 mg Q15M PRN IM DECREASED GLUCOSE; Start 09/21/16 at 10:00 Glucose (Glutose) 15 gm Q15M PRN BUCCAL DECREASED GLUCOSE; Start 09/21/16 at 10 :00 Metoprolol Tartrate (Lopressor) 50 mg BID NGT Last administered on 10/02/16 20 :39; Admin Dose 50 MG; Start 09/22/16 at 10:00 Ferrous Sulfate 300 mg 300 mg BID NGT Last administered on 10/04/16 09:54; Admin Dose 300 MG; Start 09/22/16 at 10:00 Levetiracetam 100 ml @ 400 mls/hr BID IVPB Last administered on 10/04/16 09: 54; Admin Dose 400 MLS/HR; Start 09/24/16 at 14:30 Ceftriaxone Sodium (Rocephin) 50 ml @ 100 mls/hr Q24H IVPB Last administered on 10/03/16 12:39; Admin Dose 100 MLS/HR; Start 09/25/16 at 12:00 Diagnostic Test (Pha) (Accu-Chek) 1 ea 02 XX Last administered on 10/04/16 01: 32; Admin Dose 1 EA; Start 09/28/16 at 02:00 Insulin Aspart (Novolog Insulin Pen) (Adult SC Insulin - Moder... Q4 SC Last administered on 10/04/16 10:00; Admin Dose 2 UNIT; Start 09/27/16 at 13:00 Desmopressin Acetate 2 mcg 2 mcg BID SC Last administered on 10/04/16 09:56; Admin Dose 2 MCG; Start 09/28/16 at 11:30 Sodium Chloride (1/2 NS) 1,000 ml @ 30 mls/hr Q24H IV Last administered on 00:50; Admin Dose 30 MLS/HR; Start 09/29/16 at 17:00 IV Flush (NS 10 ml) 10 ml PRN PRN IV FLUSH LINE; Start 09/30/16 at 17:00 Insulin Glargine (Lantus) 18 unit DAILY@20 SC Last administered on 10/03/16 20 :45; Admin Dose 18 UNIT; Start 10/03/16 at 20:00 MATHWE AMADO October 04, 2016 12:45
[2016-10-04] MEDS: CEFTRIAXONE 1 GM/50 ML (PMX) 50 ML IVPB SCH (12:51)
--- NOTE | 2016-10-04 13:48 | RADRPT ---
PROCEDURE: XR Chest. CLINICAL INDICATION: CHF. TECHNIQUE: Single frontal view of the chest was obtained. COMPARISON: Chest x-ray 08/08/2016 02:19 p.m. FINDINGS: The soft tissues are normal. There are degenerative osteophytes in the thoracic and upper lumbar sp ine. The heart is enlarged. The cardiomediastinal silhouette and hilar structures are normal. The pulmonary vasculature is increased. There are vascular calcifications in the left sided aortic arch . There are bilateral perihilar infiltrates extending to the periphery of the lungs. A PICC line ca theter was placed over the interval through the right arm with its tip in the proximal right atrium. There are bilateral pleural effusions. There is a unipolar cardiac pacemaker implant over the lef t chest wall. The endotracheal tube is positioned near T5 with its tip 3.9 cm superior to the omar a. An NG tube is in place with its tip distal to the GE junction. IMPRESSION: 1. Cardiomegaly with congestive heart failure and interstitial pulmonary edema which is slightly imp roved as compared to 08/08/2016. 2. The unipolar cardiac pacemaker. 3. Interval placement of PICC line catheter to the right arm with its tip in the proximal right atr ium. 4. The Edit and is well positioned 3.9 cm superior to the luz mar[place]. 5. The NG tube is well positioned distal to the GE junction. RPTAT:AAJJ Physician Erick Date Time Electronically viewed and signed by Physician Erick on 10/04/2016 13:47 MANISH/
--- NOTE | 2016-10-04 14:31 | PN ---
DATE: 10/04/2016 SUBJECTIVE: No events overnight. The patient is unresponsive, lying comfortably in bed. No fevers . VITAL SIGNS: Temperature 99.1, pulse 80, respirations 18, blood pressure 99/50, saturation 97% on v ent. WBC 8, H and H 9 and 29.9, platelets 76, neutrophils 82.3, BUN 83, creatinine 1.22. INDWELLINGS: Endotracheal tube, NG tube, [place], PICC line. DIAGNOSTICS: Chest x-ray revealed improved pulmonary edema. ANTIMICROBIALS: Rocephin. PHYSICAL EXAMINATION: GENERAL: Chronically ill-appearing, elderly woman who is lying comfortably in bed. HEENT: Head atraumatic, normocephalic. Sclerae anicteric. Buccal mucosa dry. NECK: Supple, trachea midline. CHEST: Rise symmetrical. Breath sounds diminished to bases. HEART: S1, S2. ABDOMEN: Soft, bowel tones present. EXTREMITIES: No cyanosis. ASSESSMENT: 1. Status post sepsis with streptococcal bacteremia. 2. Acute encephalopathy status post intracranial hemorrhage. 3. Acute respiratory failure. 4. Diabetes. 5. Cardiomyopathy and congestive heart failure exacerbation. PLAN: The patient remains hemodynamically stable, completing antibiotics. Repeat blood cultures ne gative. She is FULL CODE. Pending family's decision regarding final plans of care. Dictated By: ANGELINA GAMEZ [employer] MANAGER for ARMAND ALVARES/JARRELL Conf#: [id number] DID#: [id number]
--- NOTE | 2016-10-04 19:52 | CONS ---
Date/Time of Note Date/Time of Note DATE: 10/04/16 TIME: 19:44 Assessment/Plan Assessment/Plan Problems: (1) Cerebral hemorrhage Status: Acute Comment: Patient about stable c/w my last exam. Had ordered angiogram to assess for vascular lesion, but not yet done. Long discussion with family members including 2 daughters. As I discussed, her neurologic prognosis is poor, but it is impossibly to know for certain eventual outcome. With full support, chance of survival is high, although she would be prone to medical issues. Having said that, chance of survival with poor neurologic outcome much higher than chance of survival with acceptable outcome and QOL by any standard. I discussed that they will need to make decision trach/G-tube vs withdrawal of care within the next few days. Discussed that she likely would breathe on her own if off vent. Discussed that it would be my preference/recommendation to withdraw care since this is what I would choose if it were my family member but that choice is up to them and either would be supported. If they choose to continue and do trach/PEG, then cerebral angiogram will be necessary. If they elect withdraw care, then no need for angio. Will also obtain CT brain tomorrow. Continue all other measures. Consultation Date/Type/Reason Admit Date/Time September 21, 2016 at 08:29 Initial Consult Date 09/21/16 Type of Consultation: Cardiology Referring Provider: LAINEY AGARWAL 24 HR Interval Summary Free Text/Dictation I am returned from out of town. Family at bedside. Cerebral angiogram not yet done. Subjective hx not possible: pt non-verbal, pt critical status Exam/Review of Systems Vital Signs Vitals Vital Signs Date Time Temp Pulse Resp B/P Pulse Ox O2 Delivery O2 Flow Rate FiO2 10/04/16 19:00 80 18 103/53 95 Mechanical Ventilator 10/04/16 17:20 30 10/04/16 16:00 99.0 Intake and Output 10/03/16 10/03/16 10/04/16 15:00 23:00 07:00 Intake Total 740 ml 840 ml 710 ml Output Total 335 ml 245 ml 265 ml Balance 405 ml 595 ml 445 ml Exam Constitutional: non-verbal Eyes: PERRL ENMT: intubated (no eye opening; localized or withdraws LUE. No movement with deep stim RUE, but turns head and localizes vs withdraws with LUE; PERRL; corneals present bilaterally; cough and gag present) Results Result Diagram: 10/04/16 0500 10/04/16 0500 Results 24 hrs Laboratory Tests Test 10/03/16 20:39 10/04/16 01:29 10/04/16 05:00 10/04/16 05:15 Bedside Glucose 152 159 161 White Blood Count 8.0 Red Blood Count 3.14 L Hemoglobin 9.0 L Hematocrit 29.9 L Mean Corpuscular Volume 95.2 Mean Corpuscular Hemoglobin 28.7 L Mean Corpuscular Hemoglobin Concent 30.1 L Red Cell Distribution Width 16.5 H Platelet Count 76 L Mean Platelet Volume Neutrophils % 82.3 H Lymphocytes % 8.4 L Monocytes % 7.8 Eosinophils % 0.8 Basophils % 0.1 Nucleated Red Blood Cells % 0.0 Neutrophils # 6.6 Lymphocytes # 0.7 L Monocytes # 0.6 Eosinophils # 0.1 Basophils # 0.0 Nucleated Red Blood Cells # 0.0 Sodium Level 148 H Potassium Level 3.8 Chloride Level 117 H Carbon Dioxide Level 28 Anion Gap 7 L Blood Urea Nitrogen 83 H Creatinine 1.22 H Glucose Level 159 Calcium Level 7.6 L Test 10/04/16 09:57 10/04/16 12:51 10/04/16 16:55 Bedside Glucose 175 169 180 Medications Medications Current Medications Ondansetron HCl (Zofran Inj) 4 mg Q6H PRN IV NAUSEA AND/OR VOMITING; Start at 09:00 Acetaminophen (Tylenol Supp) 650 mg Q4H PRN [place] PAIN LEVEL 1-3 OR FEVER Last administered on 09/23/16 08:38; Admin Dose 650 MG; Start 09/21/16 at 09:00 Morphine Sulfate (morphine) 2 mg Q4H PRN IV PAIN LEVEL 7-10; Start 09/21/16 at 09:00 Pantoprazole (Protonix Iv) 40 mg DAILY@06 IV Last administered on 10/04/16 05: 13; Admin Dose 40 MG; Start 09/22/16 at 06:00 Lorazepam (Ativan) 1 mg Q2H PRN IV Seizures; Start 09/21/16 at 09:30 Amiodarone HCl (Cordarone) 200 mg DAILY PO Last administered on 10/04/16 09:55 ; Admin Dose 200 MG; Start 09/22/16 at 09:00 Digoxin (Digoxin) 0.125 mg DAILY PO Last administered on 10/04/16 09:54; Admin Dose 0.125 MG; Start 09/22/16 at 09:00 Losartan Potassium (Cozaar) 50 mg DAILY PO Last administered on 10/02/16 08:45 ; Admin Dose 50 MG; Start 09/22/16 at 09:00 Atorvastatin Calcium (Lipitor) 40 mg DAILY@21 PO Last administered on 20:41; Admin Dose 40 MG; Start 09/21/16 at 21:00 Miscellaneous Information 1 ea NOTE XX ; Start 09/21/16 at 10:00 Glucose (Glutose) 15 gm Q15M PRN PO DECREASED GLUCOSE; Start 09/21/16 at 10:00 Glucose (Glutose) 22.5 gm Q15M PRN PO DECREASED GLUCOSE; Start 09/21/16 at 10: 00 Dextrose (D50w Syringe) 25 ml Q15M PRN IV DECREASED GLUCOSE; Start 09/21/16 at 10:00 Dextrose (D50w Syringe) 50 ml Q15M PRN IV DECREASED GLUCOSE; Start 09/21/16 at 10:00 Glucagon (Glucagen) 1 mg Q15M PRN IM DECREASED GLUCOSE; Start 09/21/16 at 10:00 Glucose (Glutose) 15 gm Q15M PRN BUCCAL DECREASED GLUCOSE; Start 09/21/16 at 10 :00 Metoprolol Tartrate (Lopressor) 50 mg BID NGT Last administered on 10/02/16 20 :39; Admin Dose 50 MG; Start 09/22/16 at 10:00 Ferrous Sulfate 300 mg 300 mg BID NGT Last administered on 10/04/16 09:54; Admin Dose 300 MG; Start 09/22/16 at 10:00 Levetiracetam 100 ml @ 400 mls/hr BID IVPB Last administered on 10/04/16 09: 54; Admin Dose 400 MLS/HR; Start 09/24/16 at 14:30 Ceftriaxone Sodium (Rocephin) 50 ml @ 100 mls/hr Q24H IVPB Last administered on 10/04/16 12:51; Admin Dose 100 MLS/HR; Start 09/25/16 at 12:00 Diagnostic Test (Pha) (Accu-Chek) 1 ea 02 XX Last administered on 10/04/16 01: 32; Admin Dose 1 EA; Start 09/28/16 at 02:00 Insulin Aspart (Novolog Insulin Pen) (Adult SC Insulin - Moder... Q4 SC Last administered on 10/04/16 16:58; Admin Dose 2 UNIT; Start 09/27/16 at 13:00 Desmopressin Acetate 2 mcg 2 mcg BID SC Last administered on 10/04/16 09:56; Admin Dose 2 MCG; Start 09/28/16 at 11:30 Sodium Chloride (1/2 NS) 1,000 ml @ 30 mls/hr Q24H IV Last administered on 00:50; Admin Dose 30 MLS/HR; Start 09/29/16 at 17:00 IV Flush (NS 10 ml) 10 ml PRN PRN IV FLUSH LINE; Start 09/30/16 at 17:00 Insulin Glargine (Lantus) 18 unit DAILY@20 SC Last administered on 10/03/16 20 :45; Admin Dose 18 UNIT; Start 10/03/16 at 20:00 MAGALY DUNLAP MD October 04, 2016 19:52
[2016-10-04] MEDS: ATORVASTATIN 40 MG TAB PO SCH (20:24)
[2016-10-04] MEDS: INSULIN GLARGINE [LANtus] 3 ML PEN SC SCH (20:31)
[2016-10-05] VITALS (32 sets, daily range): BP systolic 95–121; BP diastolic 47–73; PULSE 80; RESP 18–28
[2016-10-05] MEDS: ACCU-CHEK XX SCH (01:32)
[2016-10-05] MEDS: Insulin NOVOLOG SS MODERATE Algorithm(NPO/TPN/ENTERAL FEEDS) SC SCH ×6 (01:32→20:22)
[2016-10-05] MEDS: PANTOPRAZOLE 40 MG INJ IV SCH (05:31)
[2016-10-05 05:42] LABS: ADD SCAN DIFF NO
[2016-10-05 05:47] LABS: ABNORMAL IP MESSAGE 1; EOSINOPHILS # 0.1 10^3/ul (0.0-0.5); EOSINOPHILS % 0.6 % (0.0-7.0); HEMATOCRIT 31.2 % (37.0-47.0); HEMOGLOBIN 9.2 g/dl (12.0-16.0); LYMPHOCYTES # 0.7 10^3/ul (0.8-2.9); LYMPHOCYTES % 6.7 % (15.0-51.0); MEAN CORPUSCULAR HEMOGLOBIN 27.6 pg (29.0-33.0); MEAN CORPUSCULAR HGB CONC 29.5 g/dl (32.0-37.0); MEAN CORPUSCULAR VOLUME 93.7 fl (82.0-101.0); MONOCYTE # 0.8 10^3/ul (0.3-0.9); MONOCYTES % 8.6 % (0.0-11.0); NEUTROPHIL # 8.2 10^3/ul (1.6-7.5); NEUTROPHILS % 83.4 % (39.0-77.0); RED BLOOD COUNT 3.33 10^6/ul (4.20-5.40); RED CELL DISTRIBUTION WIDTH 16.6 % (11.5-14.5); WHITE BLOOD COUNT 9.8 10^3/ul (4.8-10.8)
[2016-10-05 06:10] LABS: CALCIUM 7.8 mg/dl (8.4-10.2); CREATININE 1.25 mg/dl (0.44-1.00)
[2016-10-05 06:14] LABS: PLATELET COUNT 77 10^3/UL (140-415)
[2016-10-05] MEDS: LEVOTHYROXINE 100 MCG TAB PO SCH (06:32)
[2016-10-05] MEDS: METOPROLOL 50 MG TAB NGT SCH ×2 (08:53→20:31)
[2016-10-05] MEDS: LOSARTAN 50 MG TAB PO SCH (08:53)
[2016-10-05] MEDS: FERROUS SULFATE 60 MG/ML 5ML CUP NGT SCH ×2 (08:56→20:31)
[2016-10-05] MEDS: LEVETIRACETAM 500 MG (PMX) 100 ML IVPB SCH ×2 (08:56→20:31)
[2016-10-05] MEDS: DIGOXIN 0.125 MG TAB PO SCH (08:57)
[2016-10-05] MEDS: AMIODARONE 200 MG TAB PO SCH (08:57)
[2016-10-05] MEDS: DESMOPRESSIN 4 MCG INJ SC SCH ×2 (08:57→21:35)
--- NOTE | 2016-10-05 11:01 | CONS ---
Date/Time of Note Date/Time of Note DATE: 10/05/16 TIME: 10:58 Assessment/Plan Assessment/Plan Additional Assessment/Plan Chest x-ray was reviewed from yesterday afternoon which is showing bilateral pleural effusions with mild cardiomegaly. Endotracheal tube is at an adequate level. Assessment recommendations; 1. Patient admitted for intracranial bleed with respiratory failure with profound mental unresponsiveness. 2. Central diabetes insipidus with hypernatremia, markedly improved on desmopressin subcutaneously. 3. Thrombocytopenia, without any overt bleeding. 4. History of diabetes. 5. No overt seizure activity noted. 6. Gram-negative bacteremia. Continue current treatment. Family wants to have a tracheostomy performed. This will be scheduled shortly. Prognosis is dismal. Consultation Date/Type/Reason Admit Date/Time September 21, 2016 at 08:29 Initial Consult Date 09/21/16 Type of Consultation: Pulmonary/critical care Referring Provider: LAINEY AGARWAL 24 HR Interval Summary Free Text/Dictation Patient condition remains critical. Patient remains completely unresponsive. However has remained hemodynamically stable. General exam; elderly woman, orally intubated, unresponsive and currently in no distress. Exam/Review of Systems Vital Signs Vitals Vital Signs Date Time Temp Pulse Resp B/P Pulse Ox O2 Delivery O2 Flow Rate FiO2 10/05/16 09:39 80 20 97 30 10/05/16 07:00 106/60 Mechanical Ventilator 10/05/16 04:00 99.5 Intake and Output 10/04/16 10/04/16 10/05/16 15:00 23:00 07:00 Intake Total 890 ml 840 ml 630 ml Output Total 300 ml 340 ml 210 ml Balance 590 ml 500 ml 420 ml Exam HEENT examination; supple neck, no JVD. No lymphadenopathy. Midline trachea. No thyromegaly. Orally intubated. Pupils are small bilaterally. Chest examined; diminished breath on lung bases bilaterally. Upper lobes are clear. S1-S2 audible, no murmurs. Regular rhythm. Abdomen examination; soft, no organomegaly. Bowel sounds audible. Extremity exam; no peripheral edema. Pulses 1+ bilaterally. 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 Results Result Diagram: 10/05/16 0525 10/05/16 0525 Results 24 hrs Laboratory Tests Test 10/04/16 12:51 10/04/16 16:55 10/04/16 20:22 10/05/16 01:25 Bedside Glucose 169 180 158 167 Test 10/05/16 05:25 10/05/16 05:28 10/05/16 09:00 White Blood Count 9.8 # Red Blood Count 3.33 L Hemoglobin 9.2 L Hematocrit 31.2 L Mean Corpuscular Volume 93.7 Mean Corpuscular Hemoglobin 27.6 L Mean Corpuscular Hemoglobin Concent 29.5 L Red Cell Distribution Width 16.6 H Platelet Count 77 L Mean Platelet Volume Neutrophils % 83.4 H Lymphocytes % 6.7 L Monocytes % 8.6 Eosinophils % 0.6 Basophils % 0.0 Nucleated Red Blood Cells % 0.0 Neutrophils # 8.2 H Lymphocytes # 0.7 L Monocytes # 0.8 Eosinophils # 0.1 Basophils # 0.0 Nucleated Red Blood Cells # 0.0 Sodium Level 147 H Potassium Level 4.0 Chloride Level 115 H Carbon Dioxide Level 29 Anion Gap 7 L Blood Urea Nitrogen 90 H Creatinine 1.25 H Glucose Level 139 Calcium Level 7.8 L Bedside Glucose 150 157 Medications Medications Current Medications Ondansetron HCl (Zofran Inj) 4 mg Q6H PRN IV NAUSEA AND/OR VOMITING; Start at 09:00 Acetaminophen (Tylenol Supp) 650 mg Q4H PRN [place] PAIN LEVEL 1-3 OR FEVER Last administered on 09/23/16 08:38; Admin Dose 650 MG; Start 09/21/16 at 09:00 Morphine Sulfate (morphine) 2 mg Q4H PRN [place] PAIN LEVEL 7-10; Start 09/21/16 at 09:00 Pantoprazole (Protonix Iv) 40 mg DAILY@06 IV Last administered on 10/05/16 05: 31; Admin Dose 40 MG; Start 09/22/16 at 06:00 Lorazepam (Ativan) 1 mg Q2H PRN IV Seizures; Start 09/21/16 at 09:30 Amiodarone HCl (Cordarone) 200 mg DAILY PO Last administered on 10/05/16 08:57 ; Admin Dose 200 MG; Start 09/22/16 at 09:00 Digoxin (Digoxin) 0.125 mg DAILY PO Last administered on 10/05/16 08:57; Admin Dose 0.125 MG; Start 09/22/16 at 09:00 Losartan Potassium (Cozaar) 50 mg DAILY PO Last administered on 10/02/16 08:45 ; Admin Dose 50 MG; Start 09/22/16 at 09:00 Atorvastatin Calcium (Lipitor) 40 mg DAILY@21 PO Last administered on 20:24; Admin Dose 40 MG; Start 09/21/16 at 21:00 Miscellaneous Information 1 ea NOTE XX ; Start 09/21/16 at 10:00 Glucose (Glutose) 15 gm Q15M PRN PO DECREASED GLUCOSE; Start 09/21/16 at 10:00 Glucose (Glutose) 22.5 gm Q15M PRN PO DECREASED GLUCOSE; Start 09/21/16 at 10: 00 Dextrose (D50w Syringe) 25 ml Q15M PRN IV DECREASED GLUCOSE; Start 09/21/16 at 10:00 Dextrose (D50w Syringe) 50 ml Q15M PRN IV DECREASED GLUCOSE; Start 09/21/16 at 10:00 Glucagon (Glucagen) 1 mg Q15M PRN IM DECREASED GLUCOSE; Start 09/21/16 at 10:00 Glucose (Glutose) 15 gm Q15M PRN BUCCAL DECREASED GLUCOSE; Start 09/21/16 at 10 :00 Metoprolol Tartrate (Lopressor) 50 mg BID NGT Last administered on 10/02/16 20 :39; Admin Dose 50 MG; Start 09/22/16 at 10:00 Ferrous Sulfate 300 mg 300 mg BID NGT Last administered on 10/05/16 08:56; Admin Dose 300 MG; Start 09/22/16 at 10:00 Levetiracetam 100 ml @ 400 mls/hr BID IVPB Last administered on 10/05/16 08:56 ; Admin Dose 400 MLS/HR; Start 09/24/16 at 14:30 Ceftriaxone Sodium (Rocephin) 50 ml @ 100 mls/hr Q24H IVPB Last administered on 10/04/16 12:51; Admin Dose 100 MLS/HR; Start 09/25/16 at 12:00 Diagnostic Test (Pha) (Accu-Chek) 1 ea 02 XX Last administered on 10/05/16 01: 32; Admin Dose 1 EA; Start 09/28/16 at 02:00 Insulin Aspart (Novolog Insulin Pen) (Adult SC Insulin - Moder... Q4 SC Last administered on 10/05/16 09:02; Admin Dose 2 UNIT; Start 09/27/16 at 13:00 Desmopressin Acetate 2 mcg 2 mcg BID SC Last administered on 10/05/16 08:57; Admin Dose 2 MCG; Start 09/28/16 at 11:30 Sodium Chloride (1/2 NS) 1,000 ml @ 30 mls/hr Q24H IV Last administered on 00:50; Admin Dose 30 MLS/HR; Start 09/29/16 at 17:00 IV Flush (NS 10 ml) 10 ml PRN PRN IV FLUSH LINE; Start 09/30/16 at 17:00 Insulin Glargine (Lantus) 18 unit DAILY@20 SC Last administered on 10/04/16 20 :31; Admin Dose 18 UNIT; Start 10/03/16 at 20:00 JAY LEONARDO Oct 05, 2016 11:00
[2016-10-05] MEDS: SOD CHLORIDE 0.45% 1,000 ML IV SCH (11:24)
[2016-10-05] MEDS: CEFTRIAXONE 1 GM/50 ML (PMX) 50 ML IVPB SCH (11:24)
--- NOTE | 2016-10-05 11:41 | CONS ---
Date/Time of Note Date/Time of Note DATE: 10/05/16 TIME: 11:36 Assessment/Plan Assessment/Plan Chief Complaint/Hosp Course IMPRESSION: 1. Congestive heart failure exacerbation, systolic, acute on chronic, by recent echocardiogram in 07/2016 revealing ejection fraction of 25%. 2. Cardiomyopathy with decreased left ventricular ejection fraction, last ejection fraction approximately 25% by echocardiogram 07/2016. 3. History of automatic implantable cardioverter-defibrillator. 4. History of paroxysmal atrial fibrillation, previously on systemic anticoagulation. 5. Subdural hematomas with midline shift and vasogenic edema- no sig change by serial CT done this AM 6. Encephalopathy. 7. Hypertension. 8. Anemia. 9. Thrombocytopenia 10.Hypernatremia 11.Bacteremia Recc: -Tele -serial ecg's -Follow [facility] recomendations for hypertonic saline/hypoventilation/increased na levels -Follow MS closly -Continue BB/losartan -Continue amio/digoxin -Follow volume status closely -[facility] following -Palliative care following/family deciding upon direction of care Problems: Consultation Date/Type/Reason Admit Date/Time September 21, 2016 at 08:29 Initial Consult Date 09/21/16 Type of Consultation: Cardiology Reason for Consultation cardiomyopathy Referring Provider: LAINEY AGARWAL Exam/Review of Systems Vital Signs Vitals Vital Signs Date Time Temp Pulse Resp B/P Pulse Ox O2 Delivery O2 Flow Rate FiO2 10/05/16 09:39 80 20 97 30 10/05/16 07:00 106/60 Mechanical Ventilator 10/05/16 04:00 99.5 Intake and Output 10/04/16 10/04/16 10/05/16 15:00 23:00 07:00 Intake Total 890 ml 840 ml 630 ml Output Total 300 ml 340 ml 210 ml Balance 590 ml 500 ml 420 ml Exam Review of Systems: CONSTITUTIONAL: No fevers, chills. PULMONARY:intubated CARDIOVASCULAR: No obvious chest pain/palpitations GASTROINTESTINAL: No nausea/vomiting. GENITOURINARY: No hematuria/dysuria. MUSCULOSKELETAL: No obvious myagias/arthalgias. PSYCHIATRIC: No documented depression. NEUROLOGIC: encephalopathic Constitutional: alert, other Psych: no complaints Head: normocephalic ENMT: mucosa pink and moist Neck: jvd, supple Respiratory: diminished breath sounds Cardiovascular: regular rate and rhythm Gastrointestinal: non-tender, soft Musculoskeletal: muscle tone (normal) Extremities: edema (none) Neurological: other (Encephalopathy) Results Result Diagram: 10/05/16 0525 10/05/16 0525 Results 24 hrs Laboratory Tests Test 10/04/16 12:51 10/04/16 16:55 10/04/16 20:22 10/05/16 01:25 Bedside Glucose 169 180 158 167 Test 10/05/16 05:25 10/05/16 05:28 10/05/16 09:00 White Blood Count 9.8 # Red Blood Count 3.33 L Hemoglobin 9.2 L Hematocrit 31.2 L Mean Corpuscular Volume 93.7 Mean Corpuscular Hemoglobin 27.6 L Mean Corpuscular Hemoglobin Concent 29.5 L Red Cell Distribution Width 16.6 H Platelet Count 77 L Mean Platelet Volume Neutrophils % 83.4 H Lymphocytes % 6.7 L Monocytes % 8.6 Eosinophils % 0.6 Basophils % 0.0 Nucleated Red Blood Cells % 0.0 Neutrophils # 8.2 H Lymphocytes # 0.7 L Monocytes # 0.8 Eosinophils # 0.1 Basophils # 0.0 Nucleated Red Blood Cells # 0.0 Sodium Level 147 H Potassium Level 4.0 Chloride Level 115 H Carbon Dioxide Level 29 Anion Gap 7 L Blood Urea Nitrogen 90 H Creatinine 1.25 H Glucose Level 139 Calcium Level 7.8 L Bedside Glucose 150 157 Medications Medications Current Medications Ondansetron HCl (Zofran Inj) 4 mg Q6H PRN IV NAUSEA AND/OR VOMITING; Start at 09:00 Acetaminophen (Tylenol Supp) 650 mg Q4H PRN [place] PAIN LEVEL 1-3 OR FEVER Last administered on 09/23/16 08:38; Admin Dose 650 MG; Start 09/21/16 at 09:00 Morphine Sulfate (morphine) 2 mg Q4H PRN IV PAIN LEVEL 7-10; Start 09/21/16 at 09:00 Pantoprazole (Protonix Iv) 40 mg DAILY@06 IV Last administered on 10/05/16 05: 31; Admin Dose 40 MG; Start 09/22/16 at 06:00 Lorazepam (Ativan) 1 mg Q2H PRN IV Seizures; Start 09/21/16 at 09:30 Amiodarone HCl (Cordarone) 200 mg DAILY PO Last administered on 10/05/16 08:57 ; Admin Dose 200 MG; Start 09/22/16 at 09:00 Digoxin (Digoxin) 0.125 mg DAILY PO Last administered on 10/05/16 08:57; Admin Dose 0.125 MG; Start 09/22/16 at 09:00 Losartan Potassium (Cozaar) 50 mg DAILY PO Last administered on 10/02/16 08:45 ; Admin Dose 50 MG; Start 09/22/16 at 09:00 Atorvastatin Calcium (Lipitor) 40 mg DAILY@21 PO Last administered on 20:24; Admin Dose 40 MG; Start 09/21/16 at 21:00 Miscellaneous Information 1 ea NOTE XX ; Start 09/21/16 at 10:00 Glucose (Glutose) 15 gm Q15M PRN PO DECREASED GLUCOSE; Start 09/21/16 at 10:00 Glucose (Glutose) 22.5 gm Q15M PRN PO DECREASED GLUCOSE; Start 09/21/16 at 10: 00 Dextrose (D50w Syringe) 25 ml Q15M PRN IV DECREASED GLUCOSE; Start 09/21/16 at 10:00 Dextrose (D50w Syringe) 50 ml Q15M PRN IV DECREASED GLUCOSE; Start 09/21/16 at 10:00 Glucagon (Glucagen) 1 mg Q15M PRN IM DECREASED GLUCOSE; Start 09/21/16 at 10:00 Glucose (Glutose) 15 gm Q15M PRN BUCCAL DECREASED GLUCOSE; Start 09/21/16 at 10 :00 Metoprolol Tartrate (Lopressor) 50 mg BID NGT Last administered on 10/02/16 20 :39; Admin Dose 50 MG; Start 09/22/16 at 10:00 Ferrous Sulfate 300 mg 300 mg BID NGT Last administered on 10/05/16 08:56; Admin Dose 300 MG; Start 09/22/16 at 10:00 Levetiracetam 100 ml @ 400 mls/hr BID IVPB Last administered on 10/05/16 08:56 ; Admin Dose 400 MLS/HR; Start 09/24/16 at 14:30 Ceftriaxone Sodium (Rocephin) 50 ml @ 100 mls/hr Q24H IVPB Last administered on 10/05/16 11:24; Admin Dose 100 MLS/HR; Start 09/25/16 at 12:00 Diagnostic Test (Pha) (Accu-Chek) 1 ea 02 XX Last administered on 10/05/16 01: 32; Admin Dose 1 EA; Start 09/28/16 at 02:00 Insulin Aspart (Novolog Insulin Pen) (Adult SC Insulin - Moder... Q4 SC Last administered on 10/05/16 09:02; Admin Dose 2 UNIT; Start 09/27/16 at 13:00 Desmopressin Acetate 2 mcg 2 mcg BID SC Last administered on 10/05/16 08:57; Admin Dose 2 MCG; Start 09/28/16 at 11:30 Sodium Chloride (1/2 NS) 1,000 ml @ 30 mls/hr Q24H IV Last administered on 10/05 11:24; Admin Dose 30 MLS/HR; Start 09/29/16 at 17:00 IV Flush (NS 10 ml) 10 ml PRN PRN IV FLUSH LINE; Start 09/30/16 at 17:00 Insulin Glargine (Lantus) 18 unit DAILY@20 SC Last administered on 10/04/16 20 :31; Admin Dose 18 UNIT; Start 10/03/16 at 20:00 MATHEW AMADO Oct 05, 2016 11:41
--- NOTE | 2016-10-05 12:07 | RADRPT ---
PROCEDURE: CT Brain without contrast. CLINICAL INDICATION: Hemorrhage; Neurologic deficit TECHNIQUE: A CT of the brain was performed on multidetector high-resolution CT scanner utilizing a xial sections from the skull base through the vertex without contrast. One or more of the following dose reduction techniques were used: Automated exposure control, Adjustment of the mA and/or kV acc ording to patient size, and/or use of iterative reconstruction technique. DOSE: CTDI = 42 mGy and the DLP = 720 mGy-cm. COMPARISON: Head CT 09/25/2016 FINDINGS: Mild decreased density of the large right frontal parenchymal hemorrhage with decreased density of t he 6 mm right cerebral convexity subdural hematoma. Stable size of the left cerebral convexity 6 mm subdural hematoma. No definite new bleeding. There is interval mild narrowing of the lateral and third ventricles compared to prior compatible with increasing global cerebral edema. There is now mi ld 2 mm anterior leftward midline shift. There is increased narrowing of the suprasellar cistern. N o significant opacification of the visualized paranasal sinuses or mastoids. IMPRESSION: Mild decreased density of the large right frontal parenchymal hemorrhage with decreased density of t he 6 mm right cerebral convexity subdural hematoma. Stable size of the left cerebral convexity 6 mm subdural hematoma. No definite new bleeding. There is interval mild narrowing of the lateral and third ventricles compared to prior compatible wi th increasing global cerebral edema. There is now mild 2 mm anterior leftward midline shift with the increased narrowing of the suprasellar cistern. Recommend close follow-up. RPTAT: AA .Amilcar Guerrero MD, Date Time Electronically viewed and signed by .Amilcar Guerrero MD, MD on 10/05/2016 12:07 .T/
--- NOTE | 2016-10-05 12:12 | PN ---
Date/Time of Note Date/Time of Note DATE: 10/05/16 TIME: 12:11 Assessment/Plan VTE Prophylaxis VTE Prophylaxis Intervention: SCD's Lines/Catheters IV Catheter Type (from Nrsg): PICC Line Central line still needed: Yes Urinary Cath still in place: Yes Reason Cath still needed: other (indicate) Assessment/Plan Chief Complaint/Hosp Course Assessment/Plan 1. Intracranial bleeding including intraparenchymal hematoma and bilateral subdural hematomas with midline shift-patient has poor mentation and is not alert and nonverbal 2. Ventilator dependent respiratory failure secondary to encephalopathy from #1 3. Atrial fibrillation, rate controlled,, on amiodarone and digoxin. 4. Cardiomyopathy with ejection fraction of 30% with stage III and stage IV diastolic dysfunction: status post AICD 5. Hypernatremia likely 2/2 #1 : Per Neurosurgery, Correction of hypernatremia would be expected to cause increase in brain edema and thus ICP 6. Pulmonary congestion with probable underlying bilateral pneumonia 7. Type 2 diabetes mellitus. Continue Lantus and SSI. 8. Normocytic anemia. The patient has a history of iron deficiency. Continue iron supplements. 9. Sepsis with Strep group B bacteremia 10. Thrombocytopenia 11. Chronic renal insufficiency 12. Accelerated hypertension: BP now controlled 13. Hyperlipidemia. Continue statins. 14. Hypothyroidism with a chronic multinodular goiter . on synthroid, Last TSH check showed good control Plan: * Continue ICU supportive care for now * Continue ventilator management and weaning/appreciate pulmonary input * Continue Lantus dosing for optimal blood sugar control * Patient continues on tube feeds and seems to be tolerating them. * Continue antibiotics as per infectious diseases. * Continue Keppra for seizure prophylaxis * Overall prognosis is likely poor / per neurosurgical notes, catheter angiogram is required to adequately define prognosis /follow-up further recommendations DVT prophylaxis. Bilateral sequential compression devices. Gastrointestinal prophylaxis. Proton pump inhibitors. Plan for PEG and trach placement Prognosis: Poor Problems: Subjective 24 Hr Interval Summary Free Text/Dictation No acute changes No response to pain or verbal stimuli NG tube in place Family has requested PEG and trach placement Exam/Review of Systems Vital Signs Vitals Vital Signs Date Time Temp Pulse Resp B/P Pulse Ox O2 Delivery O2 Flow Rate FiO2 10/05/16 11:15 80 19 96 30 10/05/16 07:00 106/60 Mechanical Ventilator 10/05/16 04:00 99.5 Intake and Output 10/04/16 10/04/16 10/05/16 15:00 23:00 07:00 Intake Total 890 ml 840 ml 630 ml Output Total 300 ml 340 ml 210 ml Balance 590 ml 500 ml 420 ml Exam General: The patient is nonresponsive to pain or verbal stimuli HEENT: Atraumatic, normocephalic. The pupils are equal although sluggish. Chest: Normal Lungs: Clear to auscultation bilaterally Heart: Normal S1-S2, Regular rhythm and rate. Abdomen: Soft , nontender, nondistended , bowel sounds are present. Extremities: Normal to inspection, +1 edema no cyanosis Neurologic: Patient is awake although no other meaningful neurologic examination finding Results Result Diagram: 10/05/16 0525 10/05/16 0525 Results 24 hrs Laboratory Tests Test 10/04/16 12:51 10/04/16 16:55 10/04/16 20:22 10/05/16 01:25 Bedside Glucose 169 180 158 167 Test 10/05/16 05:25 10/05/16 05:28 10/05/16 09:00 White Blood Count 9.8 # Red Blood Count 3.33 L Hemoglobin 9.2 L Hematocrit 31.2 L Mean Corpuscular Volume 93.7 Mean Corpuscular Hemoglobin 27.6 L Mean Corpuscular Hemoglobin Concent 29.5 L Red Cell Distribution Width 16.6 H Platelet Count 77 L Mean Platelet Volume Neutrophils % 83.4 H Lymphocytes % 6.7 L Monocytes % 8.6 Eosinophils % 0.6 Basophils % 0.0 Nucleated Red Blood Cells % 0.0 Neutrophils # 8.2 H Lymphocytes # 0.7 L Monocytes # 0.8 Eosinophils # 0.1 Basophils # 0.0 Nucleated Red Blood Cells # 0.0 Sodium Level 147 H Potassium Level 4.0 Chloride Level 115 H Carbon Dioxide Level 29 Anion Gap 7 L Blood Urea Nitrogen 90 H Creatinine 1.25 H Glucose Level 139 Calcium Level 7.8 L Bedside Glucose 150 157 Medications Medications Current Medications Ondansetron HCl (Zofran Inj) 4 mg Q6H PRN IV NAUSEA AND/OR VOMITING; Start at 09:00 Acetaminophen (Tylenol Supp) 650 mg Q4H PRN [place] PAIN LEVEL 1-3 OR FEVER Last administered on 09/23/16t 08:38; Admin Dose 650 MG; Start 09/21/16 at 09:00 Morphine Sulfate (morphine) 2 mg Q4H PRN IV PAIN LEVEL 7-10; Start 09/21/16 at 09:00 Pantoprazole (Protonix Iv) 40 mg DAILY@06 IV Last administered on 10/05/16 05: 31; Admin Dose 40 MG; Start 09/22/16 at 06:00 Lorazepam (Ativan) 1 mg Q2H PRN IV Seizures; Start 09/21/16 at 09:30 Amiodarone HCl (Cordarone) 200 mg DAILY PO Last administered on 10/05/16 08:57 ; Admin Dose 200 MG; Start 09/22/16 at 09:00 Digoxin (Digoxin) 0.125 mg DAILY PO Last administered on 10/05/16 08:57; Admin Dose 0.125 MG; Start 09/22/16 at 09:00 Losartan Potassium (Cozaar) 50 mg DAILY PO Last administered on 10/02/16 08:45 ; Admin Dose 50 MG; Start 09/22/16 at 09:00 Atorvastatin Calcium (Lipitor) 40 mg DAILY@21 PO Last administered on 20:24; Admin Dose 40 MG; Start 09/21/16 at 21:00 Miscellaneous Information 1 ea NOTE XX ; Start 09/21/16 at 10:00 Glucose (Glutose) 15 gm Q15M PRN PO DECREASED GLUCOSE; Start 09/21/16 at 10:00 Glucose (Glutose) 22.5 gm Q15M PRN PO DECREASED GLUCOSE; Start 09/21/16 at 10: 00 Dextrose (D50w Syringe) 25 ml Q15M PRN IV DECREASED GLUCOSE; Start 09/21/16 at 10:00 Dextrose (D50w Syringe) 50 ml Q15M PRN IV DECREASED GLUCOSE; Start 09/21/16 at 10:00 Glucagon (Glucagen) 1 mg Q15M PRN IM DECREASED GLUCOSE; Start 09/21/16 at 10:00 Glucose (Glutose) 15 gm Q15M PRN BUCCAL DECREASED GLUCOSE; Start 09/21/16 at 10 :00 Metoprolol Tartrate (Lopressor) 50 mg BID NGT Last administered on 10/02/16 20 :39; Admin Dose 50 MG; Start 09/22/16 at 10:00 Ferrous Sulfate 300 mg 300 mg BID NGT Last administered on 10/05/16 08:56; Admin Dose 300 MG; Start 09/22/16 at 10:00 Levetiracetam 100 ml @ 400 mls/hr BID IVPB Last administered on 10/05/16 08:56 ; Admin Dose 400 MLS/HR; Start 09/24/16 at 14:30 Ceftriaxone Sodium (Rocephin) 50 ml @ 100 mls/hr Q24H IVPB Last administered on 10/05/16 11:24; Admin Dose 100 MLS/HR; Start 09/25/16 at 12:00 Diagnostic Test (Pha) (Accu-Chek) 1 ea 02 XX Last administered on 10/05/16 01: 32; Admin Dose 1 EA; Start 09/28/16 at 02:00 Insulin Aspart (Novolog Insulin Pen) (Adult SC Insulin - Moder... Q4 SC Last administered on 10/05/16 09:02; Admin Dose 2 UNIT; Start 09/27/16 at 13:00 Desmopressin Acetate 2 mcg 2 mcg BID SC Last administered on 10/05/16 08:57; Admin Dose 2 MCG; Start 09/28/16 at 11:30 Sodium Chloride (1/2 NS) 1,000 ml @ 30 mls/hr Q24H IV Last administered on 10/05 11:24; Admin Dose 30 MLS/HR; Start 09/29/16 at 17:00 IV Flush (NS 10 ml) 10 ml PRN PRN IV FLUSH LINE; Start 09/30/16 at 17:00 Insulin Glargine (Lantus) 18 unit DAILY@20 SC Last administered on 10/04/16 20 :31; Admin Dose 18 UNIT; Start 10/03/16 at 20:00 NACHO DAVE MD Oct 05, 2016 12:12
--- NOTE | 2016-10-05 13:16 | PN ---
DATE: 10/05/2016 SUBJECTIVE: No acute changes. The patient had a low-grade fever of 100.3 last night. VITAL SIGNS: T-current 99.5, pulse 80, respirations 18, blood pressure 106/60, saturation 96% on 30 FIO2. WBC 9.8, H and H 9.2 and 31.2, platelets 77, neutrophils 83.4, BUN 90, creatinine 1.25. DIAGNOSTICS: CT of brain this morning revealed mild decrease in density of the large right frontal parenchymal hemorrhage. INDWELLINGS: Endotracheal tube, NG tube, Macedo catheter, PICC line. PHYSICAL EXAMINATION: GENERAL: This is a fragile, chronically ill-appearing, elderly woman who is in no distress. HEENT: Head atraumatic, normocephalic. Sclerae anicteric. Buccal mucosa dry. NECK: Supple, trachea midline. CHEST: Rise symmetrical. Breath sounds diminished to bases. HEART: S1, S2. ABDOMEN: Soft, bowel tones present. EXTREMITIES: Without cyanosis. ASSESSMENT: 1. Status post streptococcal bacteremia. 2. Intracranial hemorrhage with encephalopathy. 3. Acute respiratory failure. 4. Diabetes. 5. Cardiomyopathy. PLAN: The patient remains stable. We are going to discontinue Rocephin in a.m. Her repeat blood c ultures have been negative. We will panculture her if she spikes fever, we will also order urine cu lture today given low grade fevers to rule out urinary tract infection. Plan for trach and PEG per family's wishes. Dictated By: ANGELINA GAMEZ DRIER ATTENDANT for ARMAND ALVARES/NTS Conf#: [id number] DID#: [id number]
--- NOTE | 2016-10-05 14:46 | CONS ---
DATE OF ADMISSION: 09/21/2016 DATE OF CONSULTATION: TYPE OF CONSULTATION: Cardiothoracic. REASON FOR CONSULTATION: Evaluation for tracheostomy. HISTORY OF PRESENT ILLNESS: This is a 76-year-old female with a past medical history significant fo r essential hypertension, pulmonary hypertension, hyperlipidemia, atrial fibrillation on anticoagula tion with Eliquis. The patient also has a history of cardiomyopathy with ejection fraction of 30%, was admitted with intracranial bleeding, intubated. Currently being intubated for about 2 weeks, un able to come off the ventilator secondary to multiple other medical problems including intracranial bleeding. PAST MEDICAL HISTORY: Hypertension, hyperlipidemia, diabetes, pulmonary hypertension, thrombocytope sara, renal insufficiency, hypothyroidism, atrial fibrillation, cardiomyopathy. PAST SURGICAL HISTORY: None. ALLERGIES: NONE. SOCIAL HISTORY: No smoking, drinking or drug use. MEDICATIONS: List reviewed. REVIEW OF SYSTEMS: Unable to be obtained. The patient is nonverbal. MEDICATIONS: Include: 1. Ceftriaxone ____ 2. Digoxin. 3. Cozaar. 4. Statins. 5. Zofran. 6. Morphine. 7. Glucagon. PHYSICAL EXAMINATION: VITAL SIGNS: The patient is intubated. FIO2 30%, saturations 96%, blood pressure is 106/60, pulse is 80, respirations 18, saturations 96% on 30% FIO2. Temperature is 98.2. HEENT: Orotracheally intubated. CARDIOVASCULAR: Normal S1, S2. It is regular, appeared to be paced. LUNGS: Clear to auscultation. ABDOMEN: Soft, nontender, nondistended. EXTREMITIES: Warm. LABORATORY VALUES: Significant for a hemoglobin of 9.8, white count 9.2, platelet count 77 and INR 1.24. IMPRESSION: 1. Respiratory failure. 2. Intracranial hemorrhage. RECOMMENDATIONS: We will proceed with placement of a tracheostomy. Risks, benefits, complications and alternative therapies explained to the patient's family, consent obtained. Dictated By: LULY AMAYA/JARRELL Conf#: [id number] DID#: [id number]
[2016-10-05] MEDS ORDERED: COLLAGENASE 30 GM TUBE TOP PRN (15:30)
[2016-10-05] MEDS ORDERED: PENDING SANTYL ORDER FOR WOUND CARE XX PRN (15:30)
[2016-10-05] MEDS: COLLAGENASE 30 GM TUBE TOP SCH (17:29)
[2016-10-05] MEDS: INSULIN GLARGINE [LANtus] 3 ML PEN SC SCH (20:31)
[2016-10-05] MEDS: ATORVASTATIN 40 MG TAB PO SCH (20:31)
[2016-10-06] VITALS (37 sets, daily range): BP systolic 98–133; BP diastolic 51–70; PULSE 80; RESP 17–22
[2016-10-06] MEDS: Insulin NOVOLOG SS MODERATE Algorithm(NPO/TPN/ENTERAL FEEDS) SC SCH ×6 (01:05→20:39)
[2016-10-06] MEDS: ACCU-CHEK XX SCH (01:06)
[2016-10-06] MEDS: PANTOPRAZOLE 40 MG INJ IV SCH (05:40)
[2016-10-06] MEDS: LEVOTHYROXINE 100 MCG TAB PO SCH (06:01)
[2016-10-06] MEDS: METOPROLOL 50 MG TAB NGT SCH (09:00)
[2016-10-06] MEDS: LOSARTAN 50 MG TAB PO SCH (09:00)
[2016-10-06] MEDS: DIGOXIN 0.125 MG TAB PO SCH (09:11)
[2016-10-06] MEDS: AMIODARONE 200 MG TAB PO SCH (09:11)
[2016-10-06] MEDS: LEVETIRACETAM 500 MG (PMX) 100 ML IVPB SCH ×2 (09:12→20:33)
[2016-10-06] MEDS: COLLAGENASE 30 GM TUBE TOP SCH (09:13)
[2016-10-06] MEDS: DESMOPRESSIN 4 MCG INJ SC SCH ×2 (09:26→21:00)
[2016-10-06] MEDS: FERROUS SULFATE 60 MG/ML 5ML CUP NGT SCH ×2 (09:30→20:34)
--- NOTE | 2016-10-06 09:45 | PN ---
Date/Time of Note Date/Time of Note DATE: 10/06/16 TIME: 09:43 Assessment/Plan VTE Prophylaxis VTE Prophylaxis Intervention: SCD's Lines/Catheters IV Catheter Type (from Nrsg): PICC Line Central line still needed: Yes Urinary Cath still in place: Yes Reason Cath still needed: other (indicate) Assessment/Plan Chief Complaint/Hosp Course Assessment/Plan 1. Intracranial bleeding including intraparenchymal hematoma and bilateral subdural hematomas with midline shift-patient has poor mentation and is not alert and nonverbal 2. Ventilator dependent respiratory failure secondary to encephalopathy from #1 3. Atrial fibrillation, rate controlled,, on amiodarone and digoxin. 4. Cardiomyopathy with ejection fraction of 30% with stage III and stage IV diastolic dysfunction: status post AICD 5. Hypernatremia likely 2/2 #1 : Per Neurosurgery, Correction of hypernatremia would be expected to cause increase in brain edema and thus ICP 6. Pulmonary congestion with probable underlying bilateral pneumonia 7. Type 2 diabetes mellitus. Continue Lantus and SSI. 8. Normocytic anemia. The patient has a history of iron deficiency. Continue iron supplements. 9. Sepsis with Strep group B bacteremia 10. Thrombocytopenia 11. Chronic renal insufficiency 12. Accelerated hypertension: BP now controlled 13. Hyperlipidemia. Continue statins. 14. Hypothyroidism with a chronic multinodular goiter . on synthroid, Last TSH check showed good control Plan: * Continue ICU supportive care for now * Continue ventilator management and weaning/appreciate pulmonary input * Continue Lantus dosing for optimal blood sugar control * Patient continues on tube feeds and seems to be tolerating them. * Continue antibiotics as per infectious diseases. * Continue Keppra for seizure prophylaxis * Overall prognosis is likely poor / per neurosurgical notes, catheter angiogram is required to adequately define prognosis /follow-up further recommendations DVT prophylaxis. Bilateral sequential compression devices. Gastrointestinal prophylaxis. Proton pump inhibitors. Plan for PEG and trach placement Prognosis: Poor Problems: Subjective 24 Hr Interval Summary Free Text/Dictation No acute changes Patient is intubated, NG tube in place Does not respond to pain or verbal stimuli Exam/Review of Systems Vital Signs Vitals Vital Signs Date Time Temp Pulse Resp B/P Pulse Ox O2 Delivery O2 Flow Rate FiO2 10/06/16 08:00 80 10/06/16 07:10 19 95 30 10/05/16 21:00 118/59 Mechanical Ventilator 10/05/16 20:00 99.4 Intake and Output 10/05/16 10/05/16 10/06/16 15:00 23:00 07:00 Intake Total 840 ml 740 ml 640 ml Output Total 240 ml 270 ml 140 ml Balance 600 ml 470 ml 500 ml Exam General: The patient is intubated HEENT: Atraumatic, normocephalic. The pupils are equal although sluggish Chest: Normal Lungs: Clear to auscultation bilaterally Heart: Normal S1-S2, Regular rhythm and rate. Abdomen: Soft , nontender, nondistended , bowel sounds are present. Extremities: Flaccid, no edema no cyanosis Neurologic: No response to pain or verbal stimuli Results Result Diagram: 10/05/1625 10/05/16 0525 Results 24 hrs Laboratory Tests Test 10/05/16 13:52 10/05/16 17:26 10/05/16 20:22 10/06/16 01:02 Bedside Glucose 164 154 139 168 Test 10/06/16 05:04 10/06/16 09:02 Bedside Glucose 155 139 Medications Medications Current Medications Ondansetron HCl (Zofran Inj) 4 mg Q6H PRN IV NAUSEA AND/OR VOMITING; Start at 09:00 Acetaminophen (Tylenol Supp) 650 mg Q4H PRN [place] PAIN LEVEL 1-3 OR FEVER Last administered on 09/23/16 08:38; Admin Dose 650 MG; Start 09/21/16 at 09:00 Morphine Sulfate (morphine) 2 mg Q4H PRN IV PAIN LEVEL 7-10; Start 09/21/16 at 09:00 Pantoprazole (Protonix Iv) 40 mg DAILY@06 IV Last administered on 10/06/16 05: 40; Admin Dose 40 MG; Start 09/22/16 at 06:00 Lorazepam (Ativan) 1 mg Q2H PRN IV Seizures; Start 09/21/16 at 09:30 Amiodarone HCl (Cordarone) 200 mg DAILY PO Last administered on 10/06/16 09:11 ; Admin Dose 200 MG; Start 09/22/16 at 09:00 Digoxin (Digoxin) 0.125 mg DAILY PO Last administered on 10/06/16 09:11; Admin Dose 0.125 MG; Start 09/22/16 at 09:00 Losartan Potassium (Cozaar) 50 mg DAILY PO Last administered on 10/02/16 08:45 ; Admin Dose 50 MG; Start 09/22/16 at 09:00 Atorvastatin Calcium (Lipitor) 40 mg DAILY@21 PO Last administered on 10/05/16 20:31; Admin Dose 40 MG; Start 09/21/16 at 21:00 Miscellaneous Information 1 ea NOTE XX ; Start 09/21/16 at 10:00 Glucose (Glutose) 15 gm Q15M PRN PO DECREASED GLUCOSE; Start 09/21/16 at 10:00 Glucose (Glutose) 22.5 gm Q15M PRN PO DECREASED GLUCOSE; Start 09/21/16 at 10: 00 Dextrose (D50w Syringe) 25 ml Q15M PRN IV DECREASED GLUCOSE; Start 09/21/16 at 10:00 Dextrose (D50w Syringe) 50 ml Q15M PRN IV DECREASED GLUCOSE; Start 09/21/16 at 10:00 Glucagon (Glucagen) 1 mg Q15M PRN IM DECREASED GLUCOSE; Start 09/21/16 at 10:00 Glucose (Glutose) 15 gm Q15M PRN BUCCAL DECREASED GLUCOSE; Start 09/21/16 at 10 :00 Metoprolol Tartrate (Lopressor) 50 mg BID NGT Last administered on 10/02/16 20 :39; Admin Dose 50 MG; Start 09/22/16 at 10:00 Ferrous Sulfate 300 mg 300 mg BID NGT Last administered on 10/06/16 09:30; Admin Dose 300 MG; Start 09/22/16 at 10:00 Levetiracetam (Keppra 500 Mg/ 100ml (Pmx)) 100 ml @ 400 mls/hr BID IVPB Last administered on 10/06/16 09:12; Admin Dose 400 MLS/HR; Start 09/24/16 at 14:30 Diagnostic Test (Pha) (Accu-Chek) 1 ea 02 XX Last administered on 10/05/16 01: 32; Admin Dose 1 EA; Start 09/28/16 at 02:00 Insulin Aspart (Novolog Insulin Pen) (Adult SC Insulin - Moder... Q4 SC Last administered on 10/06/16 05:08; Admin Dose 2 UNIT; Start 09/27/16 at 13:00 Desmopressin Acetate 2 mcg 2 mcg BID SC Last administered on 10/06/16 09:26; Admin Dose 2 MCG; Start 09/28/16 at 11:30 Sodium Chloride (1/2 NS) 1,000 ml @ 30 mls/hr Q24H IV Last administered on 10/05 11:24; Admin Dose 30 MLS/HR; Start 09/29/16 at 17:00 IV Flush (NS 10 ml) 10 ml PRN PRN IV FLUSH LINE; Start 09/30/16 at 17:00 Insulin Glargine (Lantus) 18 unit DAILY@20 SC Last administered on 10/05/16 20: 31; Admin Dose 18 UNIT; Start 10/03/16 at 20:00 Collagenase (Santyl) 1 applic DAILY TOP Last administered on 10/06/16 09:13; Admin Dose 1 APPLIC; Start 10/05/16 at 17:00 Collagenase (Santyl) 1 applic PRN PRN TOP WOUND CARE; Start 10/05/16 at 15:30 NACHO DAVE MD Oct 06, 2016 09:45
--- NOTE | 2016-10-06 10:03 | CONS ---
Date/Time of Note Date/Time of Note DATE: 10/06/16 TIME: 10:00 Assessment/Plan Assessment/Plan Additional Assessment/Plan Ventilator setting; AC of 18, tidal volume 450, PEEP of 5, 30% FiO2. Assessment recommendations; 1. Patient admitted for intracranial bleed leading to respiratory failure. 2. Profound persistent mental unresponsiveness. 3. No overt seizure activity. 4. Thrombocytopenia. 5. Gram-negative bacteremia. 6. Diabetes. 7. Central diabetes insipidus. Continue current treatment. Patient scheduled for tracheostomy and G-tube placement. Overall prognosis is poor. Consultation Date/Type/Reason Admit Date/Time September 21, 2016 at 08:29 Initial Consult Date 09/21/16 Type of Consultation: Pulmonary/critical care Referring Provider: LAINEY AGARWAL 24 HR Interval Summary Free Text/Dictation Patient condition remains unchanged. Remains profoundly unresponsive. Patient however has remained hemodynamically stable. General exam; elderly lady, on ventilator via endotracheal tube, unresponsive, currently in no distress. Exam/Review of Systems Vital Signs Vitals Vital Signs Date Time Temp Pulse Resp B/P Pulse Ox O2 Delivery O2 Flow Rate FiO2 10/06/16 08:00 80 10/06/16 07:10 19 95 30 10/05/16 21:00 118/59 Mechanical Ventilator 10/05/16 20:00 99.4 Intake and Output 10/05/16 10/05/16 10/06/16 15:00 23:00 07:00 Intake Total 840 ml 740 ml 640 ml Output Total 240 ml 270 ml 140 ml Balance 600 ml 470 ml 500 ml Exam HEENT exam; supple neck, no JVD. No lymphadenopathy. Midline trachea. No thyromegaly. Orally intubated. Pupils are small bilaterally. Chest exam is; clear to auscultation. S1-S2 audible, no murmurs. Regular rhythm. Abdomen examination; soft, no organomegaly. Nondistended. Bowel sounds audible. Extremity exam; no peripheral edema. Pulses 1+ bilaterally. OUTPATIENT PSYCHIATRIST exam is; patient remains profoundly unresponsive. Results Result Diagram: 10/05/16 0525 10/05/16 0525 Results 24 hrs Laboratory Tests Test 10/05/16 13:52 10/05/16 17:26 10/05/16 20:22 10/06/16 01:02 Bedside Glucose 164 154 139 168 Test 10/06/16 05:04 10/06/16 09:02 Bedside Glucose 155 139 Medications Medications Current Medications Ondansetron HCl (Zofran Inj) 4 mg Q6H PRN IV NAUSEA AND/OR VOMITING; Start at 09:00 Acetaminophen (Tylenol Supp) 650 mg Q4H PRN [place] PAIN LEVEL 1-3 OR FEVER Last administered on 09/23/16 08:38; Admin Dose 650 MG; Start 09/21/16 at 09:00 Morphine Sulfate (morphine) 2 mg Q4H PRN IV PAIN LEVEL 7-10; Start 09/21/16 at 09:00 Pantoprazole (Protonix Iv) 40 mg DAILY@06 IV Last administered on 10/06/16 05: 40; Admin Dose 40 MG; Start 09/22/16 at 06:00 Lorazepam (Ativan) 1 mg Q2H PRN IV Seizures; Start 09/21/16 at 09:30 Amiodarone HCl (Cordarone) 200 mg DAILY PO Last administered on 10/06/16 09:11 ; Admin Dose 200 MG; Start 09/22/16 at 09:00 Digoxin (Digoxin) 0.125 mg DAILY PO Last administered on 10/06/16 09:11; Admin Dose 0.125 MG; Start 09/22/16 at 09:00 Losartan Potassium (Cozaar) 50 mg DAILY PO Last administered on 10/02/16 08:45 ; Admin Dose 50 MG; Start 09/22/16 at 09:00 Atorvastatin Calcium (Lipitor) 40 mg DAILY@21 PO Last administered on 10/05/16 20:31; Admin Dose 40 MG; Start 09/21/16 at 21:00 Miscellaneous Information 1 ea NOTE XX ; Start 09/21/16 at 10:00 Glucose (Glutose) 15 gm Q15M PRN PO DECREASED GLUCOSE; Start 09/21/16 at 10:00 Glucose (Glutose) 22.5 gm Q15M PRN PO DECREASED GLUCOSE; Start 09/21/16 at 10: 00 Dextrose (D50w Syringe) 25 ml Q15M PRN IV DECREASED GLUCOSE; Start 09/21/16 at 10:00 Dextrose (D50w Syringe) 50 ml Q15M PRN IV DECREASED GLUCOSE; Start 09/21/16 at 10:00 Glucagon (Glucagen) 1 mg Q15M PRN IM DECREASED GLUCOSE; Start 09/21/16 at 10:00 Glucose (Glutose) 15 gm Q15M PRN BUCCAL DECREASED GLUCOSE; Start 09/21/16 at 10 :00 Metoprolol Tartrate (Lopressor) 50 mg BID NGT Last administered on 10/02/16 20 :39; Admin Dose 50 MG; Start 09/22/16 at 10:00 Ferrous Sulfate 300 mg 300 mg BID NGT Last administered on 10/06/16 09:30; Admin Dose 300 MG; Start 09/22/16 at 10:00 Levetiracetam (Keppra 500 Mg/ 100ml (Pmx)) 100 ml @ 400 mls/hr BID IVPB Last administered on 10/06/16 09:12; Admin Dose 400 MLS/HR; Start 09/24/16 at 14:30 Diagnostic Test (Pha) (Accu-Chek) 1 ea 02 XX Last administered on 10/05/16 01: 32; Admin Dose 1 EA; Start 09/28/16 at 02:00 Insulin Aspart (Novolog Insulin Pen) (Adult SC Insulin - Moder... Q4 SC Last administered on 10/06/16 05:08; Admin Dose 2 UNIT; Start 09/27/16 at 13:00 Desmopressin Acetate 2 mcg 2 mcg BID SC Last administered on 10/06/16 09:26; Admin Dose 2 MCG; Start 09/28/16 at 11:30 Sodium Chloride (1/2 NS) 1,000 ml @ 30 mls/hr Q24H IV Last administered on 10/05 11:24; Admin Dose 30 MLS/HR; Start 09/29/16 at 17:00 IV Flush (NS 10 ml) 10 ml PRN PRN IV FLUSH LINE; Start 09/30/16 at 17:00 Insulin Glargine (Lantus) 18 unit DAILY@20 SC Last administered on 10/05/16 20: 31; Admin Dose 18 UNIT; Start 10/03/16 at 20:00 Collagenase (Santyl) 1 applic DAILY TOP Last administered on 10/06/16 09:13; Admin Dose 1 APPLIC; Start 10/05/16 at 17:00 Collagenase (Santyl) 1 applic PRN PRN TOP WOUND CARE; Start 10/05/16 at 15:30 JAY LEONARDO Oct 06, 2016 10:02
--- NOTE | 2016-10-06 10:26 | CONS ---
Date/Time of Note Date/Time of Note DATE: 10/06/16 TIME: 10:22 Assessment/Plan Assessment/Plan Chief Complaint/Hosp Course IMPRESSION: 1. Congestive heart failure exacerbation, systolic, acute on chronic, by recent echocardiogram in 07/2016 revealing ejection fraction of 25%. 2. Cardiomyopathy with decreased left ventricular ejection fraction, last ejection fraction approximately 25% by echocardiogram 07/2016. 3. History of automatic implantable cardioverter-defibrillator. 4. History of paroxysmal atrial fibrillation, previously on systemic anticoagulation. 5. Subdural hematomas with midline shift and vasogenic edema- no sig change by serial CT done this AM 6. Encephalopathy. 7. Hypertension. 8. Anemia. 9. Thrombocytopenia 10.Hypernatremia 11.Bacteremia Recc: -Tele -For trach today -Follow [facility] recomendations for hypertonic saline/hypoventilation/increased na levels -Follow MS closly -Continue BB/losartan but will decrease dose to assure patient better tolerates -Continue amio/digoxin -Follow volume status closely -[facility] following -Palliative care following Problems: Consultation Date/Type/Reason Admit Date/Time September 21, 2016 at 08:29 Initial Consult Date 09/21/16 Type of Consultation: Cardiology Reason for Consultation Cardiomyopathy Referring Provider: LAINEY AGARWAL Exam/Review of Systems Vital Signs Vitals Vital Signs Date Time Temp Pulse Resp B/P Pulse Ox O2 Delivery O2 Flow Rate FiO2 10/06/16 09:15 80 18 96 30 10/05/16 21:00 118/59 Mechanical Ventilator 10/05/16 20:00 99.4 Intake and Output 10/05/16 10/05/16 10/06/16 15:00 23:00 07:00 Intake Total 840 ml 740 ml 640 ml Output Total 240 ml 270 ml 140 ml Balance 600 ml 470 ml 500 ml Exam Review of Systems: CONSTITUTIONAL: No fevers, chills. PULMONARY: intubated CARDIOVASCULAR: No obvious chest pain/palpitations GASTROINTESTINAL: No nausea/vomiting. GENITOURINARY: No hematuria/dysuria. MUSCULOSKELETAL: No obvious myagias/arthalgias. PSYCHIATRIC: No documented depression. NEUROLOGIC: Nonresponsive Constitutional: other (encephalopathic/nonresponsive) Psych: no complaints Head: normocephalic ENMT: mucosa pink and moist Neck: jvd (9 cm water), supple Respiratory: other (upper aiorway rhocherous sounds) Cardiovascular: regular rate and rhythm Gastrointestinal: non-tender, soft Musculoskeletal: muscle tone (normal) Extremities: edema (none) Neurological: other (No focakl deficits) Results Result Diagram: 10/05/1652410/05/16 0525 Results 24 hrs Laboratory Tests Test 10/05/16 13:52 10/05/16 17:26 10/05/16 20:22 10/06/16 01:02 Bedside Glucose 164 154 139 168 Test 10/06/16 05:04 10/06/16 09:02 Bedside Glucose 155 139 Medications Medications Current Medications Ondansetron HCl (Zofran Inj) 4 mg Q6H PRN IV NAUSEA AND/OR VOMITING; Start at 09:00 Acetaminophen (Tylenol Supp) 650 mg Q4H PRN [place] PAIN LEVEL 1-3 OR FEVER Last administered on 09/23/16 08:38; Admin Dose 650 MG; Start 09/21/16 at 09:00 Morphine Sulfate (morphine) 2 mg Q4H PRN IV PAIN LEVEL 7-10; Start 09/21/16 at 09:00 Pantoprazole (Protonix Iv) 40 mg DAILY@06 IV Last administered on 10/06/16 05: 40; Admin Dose 40 MG; Start 09/22/16 at 06:00 Lorazepam (Ativan) 1 mg Q2H PRN IV Seizures; Start 09/21/16 at 09:30 Amiodarone HCl (Cordarone) 200 mg DAILY PO Last administered on 10/06/16 09:11 ; Admin Dose 200 MG; Start 09/22/16 at 09:00 Digoxin (Digoxin) 0.125 mg DAILY PO Last administered on 10/06/16 09:11; Admin Dose 0.125 MG; Start 09/22/16 at 09:00 Losartan Potassium (Cozaar) 50 mg DAILY PO Last administered on 10/02/16 08:45 ; Admin Dose 50 MG; Start 09/22/16 at 09:00 Atorvastatin Calcium (Lipitor) 40 mg DAILY@21 PO Last administered on 10/05/16 20:31; Admin Dose 40 MG; Start 09/21/16 at 21:00 Miscellaneous Information 1 ea NOTE XX ; Start 09/21/16 at 10:00 Glucose (Glutose) 15 gm Q15M PRN PO DECREASED GLUCOSE; Start 09/21/16 at 10:00 Glucose (Glutose) 22.5 gm Q15M PRN PO DECREASED GLUCOSE; Start 09/21/16 at 10: 00 Dextrose (D50w Syringe) 25 ml Q15M PRN IV DECREASED GLUCOSE; Start 09/21/16 at 10:00 Dextrose (D50w Syringe) 50 ml Q15M PRN IV DECREASED GLUCOSE; Start 09/21/16 at 10:00 Glucagon (Glucagen) 1 mg Q15M PRN IM DECREASED GLUCOSE; Start 09/21/16 at 10:00 Glucose (Glutose) 15 gm Q15M PRN BUCCAL DECREASED GLUCOSE; Start 09/21/16 at 10 :00 Metoprolol Tartrate (Lopressor) 50 mg BID NGT Last administered on 10/02/16 20 :39; Admin Dose 50 MG; Start 09/22/16 at 10:00 Ferrous Sulfate 300 mg 300 mg BID NGT Last administered on 10/06/16 09:30; Admin Dose 300 MG; Start 09/22/16 at 10:00 Levetiracetam (Keppra 500 Mg/ 100ml (Pmx)) 100 ml @ 400 mls/hr BID IVPB Last administered on 10/06/16 09:12; Admin Dose 400 MLS/HR; Start 09/24/16 at 14:30 Diagnostic Test (Pha) (Accu-Chek) 1 ea 02 XX Last administered on 10/05/16 01: 32; Admin Dose 1 EA; Start 09/28/16 at 02:00 Insulin Aspart (Novolog Insulin Pen) (Adult SC Insulin - Moder... Q4 SC Last administered on 10/06/16 05:08; Admin Dose 2 UNIT; Start 09/27/16 at 13:00 Desmopressin Acetate 2 mcg 2 mcg BID SC Last administered on 10/06/16 09:26; Admin Dose 2 MCG; Start 09/28/16 at 11:30 Sodium Chloride (1/2 NS) 1,000 ml @ 30 mls/hr Q24H IV Last administered on 10/05 11:24; Admin Dose 30 MLS/HR; Start 09/29/16 at 17:00 IV Flush (NS 10 ml) 10 ml PRN PRN IV FLUSH LINE; Start 09/30/16 at 17:00 Insulin Glargine (Lantus) 18 unit DAILY@20 SC Last administered on 10/05/16 20: 31; Admin Dose 18 UNIT; Start 10/03/16 at 20:00 Collagenase (Santyl) 1 applic DAILY TOP Last administered on 10/06/16 09:13; Admin Dose 1 APPLIC; Start 10/05/16 at 17:00 Collagenase (Santyl) 1 applic PRN PRN TOP WOUND CARE; Start 10/05/16 at 15:30 MATHEW AMADO Oct 06, 2016 10:26
--- NOTE | 2016-10-06 13:03 | PN ---
DATE: 10/06/2016 SUBJECTIVE: No events overnight. The patient spiked a fever yesterday of 100.0, currently afebrile . No labs this morning. She is off antibiotics. INDWELLINGS: Endotracheal tube, NG tube, Macedo catheter, PICC line placed on 09/30/2016. PHYSICAL EXAMINATION: GENERAL: Chronically ill-appearing, elderly woman who is noncommunicative, in no distress. HEENT: Head atraumatic, normocephalic. Sclerae anicteric. Buccal mucosa dry. CHEST: Rise symmetrical. Breath sounds clear. HEART: S1, S2. ABDOMEN: Soft, bowel sounds present. EXTREMITIES: Without cyanosis. ASSESSMENT: 1. Status post sepsis with Streptococcal bacteremia, completed treatment. 2. Acute encephalopathy. 3. Intracranial hemorrhage. 4. Diabetes. 5. Acute respiratory failure and cardiomyopathy. PLAN: The patient remains stable off antibiotics. Continue present care. Dictated By: ANGELINA GAMEZ RUBBER ROLLER GRINDER OPERATOR for ARMAND ALVARES/NTS Conf#: [id number] DID#: [id number]
[2016-10-06] MEDS ORDERED: LIDOCAINE 2%/EPI 30 ML INJ ONE (14:24)
[2016-10-06] MEDS: SOD CHLORIDE 0.45% 1,000 ML IV SCH ×2 (17:00→21:47)
--- NOTE | 2016-10-06 17:42 | OPR ---
DATE OF OPERATION: PREOPERATIVE DIAGNOSIS: Respiratory failure. POSTOPERATIVE DIAGNOSIS: Respiratory failure. OPERATION PERFORMED: Tracheostomy. SURGEON: Luly Long MD ANESTHESIA: General. CONSENT: Risks, benefits, complications, and alternative therapies explained to the patient and the family, consent obtained. OPERATIVE TECHNIQUE: The patient was placed in supine position, prepped and draped in usual sterile fashion. Timeout was called, and I started. I made a 2 cm incision 1 fingerbreadth superior to the sternal notch. Incision was taken down to th e subcutaneous tissue which was then opened using Metzenbaum scissors. Access was gained into the t rachea. Guidewire was advanced through without any difficulty. Subcutaneous tissues and the trache a were dilated using progressively larger dilators. Endotracheal tube was removed, and 8 tracheosto my tube was advanced into the trachea, secured to the skin using 4-0 nylon sutures and a trach tie. The patient tolerated procedure well. Dictated By: LULY AMAYA/JARRELL Conf#: [id number] DID#: [id number]
[2016-10-06] MEDS: INSULIN GLARGINE [LANtus] 3 ML PEN SC SCH (20:32)
[2016-10-06] MEDS: METOPROLOL 25 MG TAB NGT SCH (20:33)
[2016-10-06] MEDS: ATORVASTATIN 40 MG TAB PO SCH (20:33)
[2016-10-07] VITALS (39 sets, daily range): BP systolic 89–121; BP diastolic 51–61; PULSE 80; RESP 18–34
[2016-10-07] MEDS: Insulin NOVOLOG SS MODERATE Algorithm(NPO/TPN/ENTERAL FEEDS) SC SCH ×6 (01:00→21:00)
[2016-10-07] MEDS: ACCU-CHEK XX SCH (01:15)
[2016-10-07 04:38] LABS: ADD SCAN DIFF NO
[2016-10-07 04:41] LABS: ABNORMAL IP MESSAGE 1; BASOPHILS % 0.1 % (0.0-2.0); EOSINOPHILS # 0.1 10^3/ul (0.0-0.5); EOSINOPHILS % 0.5 % (0.0-7.0); HEMATOCRIT 32.9 % (37.0-47.0); HEMOGLOBIN 9.8 g/dl (12.0-16.0); LYMPHOCYTES # 0.7 10^3/ul (0.8-2.9); LYMPHOCYTES % 6.8 % (15.0-51.0); MEAN CORPUSCULAR HEMOGLOBIN 27.8 pg (29.0-33.0); MEAN CORPUSCULAR HGB CONC 29.8 g/dl (32.0-37.0); MEAN CORPUSCULAR VOLUME 93.5 fl (82.0-101.0); MONOCYTE # 0.8 10^3/ul (0.3-0.9); MONOCYTES % 7.7 % (0.0-11.0); NEUTROPHILS % 84.2 % (39.0-77.0); PLATELET COUNT 90 10^3/UL (140-415); RED BLOOD COUNT 3.52 10^6/ul (4.20-5.40); RED CELL DISTRIBUTION WIDTH 16.8 % (11.5-14.5); WHITE BLOOD COUNT 10.7 10^3/ul (4.8-10.8)
[2016-10-07 05:12] LABS: CALCIUM 7.6 mg/dl (8.4-10.2); CREATININE 1.34 mg/dl (0.44-1.00)
[2016-10-07] MEDS: LEVOTHYROXINE 100 MCG TAB PO SCH (05:57)
[2016-10-07] MEDS: PANTOPRAZOLE 40 MG INJ IV SCH (06:01)
[2016-10-07] MEDS: COLLAGENASE 30 GM TUBE TOP SCH (08:08)
[2016-10-07] MEDS: LEVETIRACETAM 500 MG (PMX) 100 ML IVPB SCH (08:34)
[2016-10-07] MEDS: FERROUS SULFATE 60 MG/ML 5ML CUP NGT SCH ×2 (08:34→21:53)
[2016-10-07] MEDS: METOPROLOL 25 MG TAB NGT SCH ×2 (08:35→21:54)
[2016-10-07] MEDS: AMIODARONE 200 MG TAB PO SCH (08:35)
[2016-10-07] MEDS: DESMOPRESSIN 4 MCG INJ SC SCH ×2 (08:36→21:56)
[2016-10-07] MEDS ORDERED: LOSARTAN 25 MG TAB PO SCH (09:00)
[2016-10-07] MEDS: DIGOXIN 0.125 MG TAB PO SCH (09:29)
--- NOTE | 2016-10-07 09:44 | CONS ---
Date/Time of Note Date/Time of Note DATE: 10/07/16 TIME: 09:41 Assessment/Plan Assessment/Plan Additional Assessment/Plan 1. Congestive heart failure exacerbation, systolic, acute on chronic, by recent echocardiogram in 07/2016 revealing ejection fraction of 25%- euvolemic by exam, will follow. 2. Cardiomyopathy with decreased left ventricular ejection fraction, last ejection fraction approximately 25% by echocardiogram 07/2016. 3. History of automatic implantable cardioverter-defibrillator- no evidence of malfxn. 4. History of paroxysmal atrial fibrillation, previously on systemic anticoagulation. 5. Subdural hematomas with midline shift and vasogenic edema- no sig change by serial CT done this AM- neuro follows, no intervention planned. 6. Encephalopathy- unchanged. 7. Hypertension- well Rx, con't to follow. 8. Anemia. 9. Thrombocytopenia 10.Hypernatremia 11.Bacteremia - on anti-bx. Consultation Date/Type/Reason Admit Date/Time September 21, 2016 at 08:29 Initial Consult Date 09/21/16 Type of Consultation: Cardiology Referring Provider: LAINEY AGARWAL 24 HR Interval Summary Free Text/Dictation NO acute change - BP stable - s/p tarch now - con't supportive rx. ROS: No fever, no chills, no nausea, no vomiting, no diarrhea/constipation No recent weight changes No chest pain, no PND, no orthopnea No dizziness, blurred vision No thirst, no heat or cold intolerance (per nurse) Exam/Review of Systems Vital Signs Vitals Vital Signs Date Time Temp Pulse Resp B/P Pulse Ox O2 Delivery O2 Flow Rate FiO2 10/07/16 08:12 80 10/07/16 08:00 98.7 34 121/60 99 Mechanical Ventilator 10/07/16 05:20 30 Intake and Output 10/06/16 10/06/16 10/07/16 15:00 23:00 07:00 Intake Total 380 ml 600 ml 210 ml Output Total 1 ml 530 ml 300 ml Balance 379 ml 70 ml -90 ml Exam General: WN/WD/NAD, AOx 0 HEENT: Unicetric/atraumatic/EOMI (does not follow commands) NECK: trach Lymph: no lymphadenopathy HEART: regular with no S3, II/ systolic murmur at apex, ICD in place LUNGS: Coarse sounds ABD: soft, NT, ND, +BS : Intact Neuro: non focal SKIN: chronic changes EXT: trace edema Results Result Diagram: 10/07/16 0400 10/07/16 0400 Results 24 hrs Laboratory Tests Test 10/06/16 13:49 10/06/16 17:03 10/06/16 20:23 10/07/16 01:15 Bedside Glucose 127 114 156 123 Test 10/07/16 04:00 10/07/16 04:07 10/07/16 08:47 White Blood Count 10.7 Red Blood Count 3.52 L Hemoglobin 9.8 L Hematocrit 32.9 L Mean Corpuscular Volume 93.5 Mean Corpuscular Hemoglobin 27.8 L Mean Corpuscular Hemoglobin Concent 29.8 L Red Cell Distribution Width 16.8 H Platelet Count 90 L Mean Platelet Volume Neutrophils % 84.2 H Lymphocytes % 6.8 L Monocytes % 7.7 Eosinophils % 0.5 Basophils % 0.1 Nucleated Red Blood Cells % 0.0 Neutrophils # 9.0 H Lymphocytes # 0.7 L Monocytes # 0.8 Eosinophils # 0.1 Basophils # 0.0 Nucleated Red Blood Cells # 0.0 Sodium Level 152 H Potassium Level 4.0 Chloride Level 116 H Carbon Dioxide Level 30 Anion Gap 10 Blood Urea Nitrogen 100 H Creatinine 1.34 H Glucose Level 104 Calcium Level 7.6 L Bedside Glucose 110 101 Medications Medications Current Medications Ondansetron HCl (Zofran Inj) 4 mg Q6H PRN IV NAUSEA AND/OR VOMITING; Start at 09:00 Acetaminophen (Tylenol Supp) 650 mg Q4H PRN [place] PAIN LEVEL 1-3 OR FEVER Last administered on 09/23/16 08:38; Admin Dose 650 MG; Start 09/21/16 at 09:00 Morphine Sulfate (morphine) 2 mg Q4H PRN IV PAIN LEVEL 7-10; Start 09/21/16 at 09:00 Pantoprazole (Protonix Iv) 40 mg DAILY@06 IV Last administered on 10/07/16 06: 01; Admin Dose 40 MG; Start 09/22/16 at 06:00 Lorazepam (Ativan) 1 mg Q2H PRN IV Seizures; Start 09/21/16 at 09:30 Amiodarone HCl (Cordarone) 200 mg DAILY PO Last administered on 10/07/16 08:35 ; Admin Dose 200 MG; Start 09/22/16 at 09:00 Digoxin (Digoxin) 0.125 mg DAILY PO Last administered on 10/07/16 09:29; Admin Dose 0.125 MG; Start 09/22/16 at 09:00 Atorvastatin Calcium (Lipitor) 40 mg DAILY@21 PO Last administered on 10/06/16 20:33; Admin Dose 40 MG; Start 09/21/16 at 21:00 Miscellaneous Information 1 ea NOTE XX ; Start 09/21/16 at 10:00 Glucose (Glutose) 15 gm Q15M PRN PO DECREASED GLUCOSE; Start 09/21/16 at 10:00 Glucose (Glutose) 22.5 gm Q15M PRN PO DECREASED GLUCOSE; Start 09/21/16 at 10: 00 Dextrose (D50w Syringe) 25 ml Q15M PRN IV DECREASED GLUCOSE; Start 09/21/16 at 10:00 Dextrose (D50w Syringe) 50 ml Q15M PRN IV DECREASED GLUCOSE; Start 09/21/16 at 10:00 Glucagon (Glucagen) 1 mg Q15M PRN IM DECREASED GLUCOSE; Start 09/21/16 at 10:00 Glucose (Glutose) 15 gm Q15M PRN BUCCAL DECREASED GLUCOSE; Start 09/21/16 at 10 :00 Ferrous Sulfate 300 mg 300 mg BID NGT Last administered on 10/07/16 08:34; Admin Dose 300 MG; Start 09/22/16 at 10:00 Levetiracetam (Keppra 500 Mg/ 100ml (Pmx)) 100 ml @ 400 mls/hr BID IVPB Last administered on 10/07/16 08:34; Admin Dose 400 MLS/HR; Start 09/24/16 at 14:30 Diagnostic Test (Pha) (Accu-Chek) 1 ea 02 XX Last administered on 10/05/16 01: 32; Admin Dose 1 EA; Start 09/28/16 at 02:00 Insulin Aspart (Novolog Insulin Pen) (Adult SC Insulin - Moder... Q4 SC Last administered on 10/06/16 20:39; Admin Dose 2 UNIT; Start 09/27/16 at 13:00 Desmopressin Acetate 2 mcg 2 mcg BID SC Last administered on 10/07/16 08:36; Admin Dose 2 MCG; Start 09/28/16 at 11:30 Sodium Chloride (1/2 NS) 1,000 ml @ 30 mls/hr Q24H IV Last administered on 10/06 21:47; Admin Dose 30 MLS/HR; Start 09/29/16 at 17:00 IV Flush (NS 10 ml) 10 ml PRN PRN IV FLUSH LINE; Start 09/30/16 at 17:00 Insulin Glargine (Lantus) 18 unit DAILY@20 SC Last administered on 10/06/16 20: 32; Admin Dose 18 UNIT; Start 10/03/16 at 20:00 Collagenase (Santyl) 1 applic DAILY TOP Last administered on 10/07/16 08:08; Admin Dose 1 APPLIC; Start 10/05/16 at 17:00 Collagenase (Santyl) 1 applic PRN PRN TOP WOUND CARE; Start 10/05/16 at 15:30 Losartan Potassium (Cozaar) 25 mg DAILY PO ; Start 10/07/16 at 09:00 Metoprolol Tartrate (Lopressor) 25 mg BID NGT Last administered on 10/07/16 08: 35; Admin Dose 25 MG; Start 10/06/16 at 21:00 MILAGROS PRESSLEY MD Oct 07, 2016 09:44
--- NOTE | 2016-10-07 09:46 | CONS ---
Date/Time of Note Date/Time of Note DATE: 10/07/16 TIME: 09:44 Assessment/Plan Assessment/Plan Additional Assessment/Plan Ventilator setting; AC of 18, tidal volume 450, PEEP of 5, 30% FiO2. Assessment recommendations; 1. Patient admitted for respiratory failure due to cerebral hemorrhage. With extremely poor mental status since admission. 2. No overt seizure activity noted. Patient maintained on Keppra. 3. Mild improvement in platelet count. 4. 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 Continue current treatment. Patient scheduled for a PEG tube placement today. Overall prognosis remains extremely poor. Consultation Date/Type/Reason Admit Date/Time September 21, 2016 at 08:29 Initial Consult Date 09/21/16 Type of Consultation: Pulmonary/critical care Referring Provider: LAINEY AGARWAL 24 HR Interval Summary Free Text/Dictation Patient condition remains stable. Patient underwent tracheostomy yesterday. Patient remains completely unresponsive. And has remained hemodynamically stable. General exam; elderly woman, on ventilator via tracheostomy currently in no distress. Unresponsive. Exam/Review of Systems Vital Signs Vitals Vital Signs Date Time Temp Pulse Resp B/P Pulse Ox O2 Delivery O2 Flow Rate FiO2 10/07/16 08:12 80 10/07/16 08:00 98.7 34 121/60 99 Mechanical Ventilator 10/07/16 05:20 30 Intake and Output 10/06/16 10/06/16 10/07/16 15:00 23:00 07:00 Intake Total 380 ml 600 ml 210 ml Output Total 1 ml 530 ml 300 ml Balance 379 ml 70 ml -90 ml Exam HEENT exam is; supple neck, no JVD. No lymphadenopathy. Midline trachea. No thyromegaly. Patient is edentulous. Tracheostomy insertion site is clean. Pupils are small bilaterally. Chest examination; clear to auscultation. S1-S2 audible, no murmurs. Regular rhythm. Abdomen examination; soft, nondistended. No organomegaly. Bowel sounds audible. Extremity exam is; no peripheral edema. [employer]ICIAN examination; patient remains completely unresponsive. Results Result Diagram: 10/07/16 0400 10/07/16 0400 Results 24 hrs Laboratory Tests Test 10/06/16 13:49 10/06/16 17:03 10/06/16 20:23 10/07/16 01:15 Bedside Glucose 127 114 156 123 Test 10/07/16 04:00 10/07/16 04:07 10/07/16 08:47 White Blood Count 10.7 Red Blood Count 3.52 L Hemoglobin 9.8 L Hematocrit 32.9 L Mean Corpuscular Volume 93.5 Mean Corpuscular Hemoglobin 27.8 L Mean Corpuscular Hemoglobin Concent 29.8 L Red Cell Distribution Width 16.8 H Platelet Count 90 L Mean Platelet Volume Neutrophils % 84.2 H Lymphocytes % 6.8 L Monocytes % 7.7 Eosinophils % 0.5 Basophils % 0.1 Nucleated Red Blood Cells % 0.0 Neutrophils # 9.0 H Lymphocytes # 0.7 L Monocytes # 0.8 Eosinophils # 0.1 Basophils # 0.0 Nucleated Red Blood Cells # 0.0 Sodium Level 152 H Potassium Level 4.0 Chloride Level 116 H Carbon Dioxide Level 30 Anion Gap 10 Blood Urea Nitrogen 100 H Creatinine 1.34 H Glucose Level 104 Calcium Level 7.6 L Bedside Glucose 110 101 Medications Medications Current Medications Ondansetron HCl (Zofran Inj) 4 mg Q6H PRN IV NAUSEA AND/OR VOMITING; Start at 09:00 Acetaminophen (Tylenol Supp) 650 mg Q4H PRN [place] PAIN LEVEL 1-3 OR FEVER Last administered on 09/23/16 08:38; Admin Dose 650 MG; Start 09/21/16 at 09:00 Morphine Sulfate (morphine) 2 mg Q4H PRN IV PAIN LEVEL 7-10; Start 09/21/16 at 09:00 Pantoprazole (Protonix Iv) 40 mg DAILY@06 IV Last administered on 10/07/16 06: 01; Admin Dose 40 MG; Start 09/22/16 at 06:00 Lorazepam (Ativan) 1 mg Q2H PRN IV Seizures; Start 09/21/16 at 09:30 Amiodarone HCl (Cordarone) 200 mg DAILY PO Last administered on 10/07/16 08:35 ; Admin Dose 200 MG; Start 09/22/16 at 09:00 Digoxin (Digoxin) 0.125 mg DAILY PO Last administered on 10/07/16 09:29; Admin Dose 0.125 MG; Start 09/22/16 at 09:00 Atorvastatin Calcium (Lipitor) 40 mg DAILY@21 PO Last administered on 10/06/16 20:33; Admin Dose 40 MG; Start 09/21/16 at 21:00 Miscellaneous Information 1 ea NOTE XX ; Start 09/21/16 at 10:00 Glucose (Glutose) 15 gm Q15M PRN PO DECREASED GLUCOSE; Start 09/21/16 at 10:00 Glucose (Glutose) 22.5 gm Q15M PRN PO DECREASED GLUCOSE; Start 09/21/16 at 10: 00 Dextrose (D50w Syringe) 25 ml Q15M PRN IV DECREASED GLUCOSE; Start 09/21/16 at 10:00 Dextrose (D50w Syringe) 50 ml Q15M PRN IV DECREASED GLUCOSE; Start 09/21/16 at 10:00 Glucagon (Glucagen) 1 mg Q15M PRN IM DECREASED GLUCOSE; Start 09/21/16 at 10:00 Glucose (Glutose) 15 gm Q15M PRN BUCCAL DECREASED GLUCOSE; Start 09/21/16 at 10 :00 Ferrous Sulfate 300 mg 300 mg BID NGT Last administered on 10/07/16 08:34; Admin Dose 300 MG; Start 09/22/16 at 10:00 Levetiracetam (Keppra 500 Mg/ 100ml (Pmx)) 100 ml @ 400 mls/hr BID IVPB Last administered on 10/07/16 08:34; Admin Dose 400 MLS/HR; Start 09/24/16 at 14:30 Diagnostic Test (Pha) (Accu-Chek) 1 ea 02 XX Last administered on 10/05/16 01: 32; Admin Dose 1 EA; Start 09/28/16 at 02:00 Insulin Aspart (Novolog Insulin Pen) (Adult SC Insulin - Moder... Q4 SC Last administered on 10/06/16 20:39; Admin Dose 2 UNIT; Start 09/27/16 at 13:00 Desmopressin Acetate 2 mcg 2 mcg BID SC Last administered on 10/07/16 08:36; Admin Dose 2 MCG; Start 09/28/16 at 11:30 Sodium Chloride (1/2 NS) 1,000 ml @ 30 mls/hr Q24H IV Last administered on 10/06 21:47; Admin Dose 30 MLS/HR; Start 09/29/16 at 17:00 IV Flush (NS 10 ml) 10 ml PRN PRN IV FLUSH LINE; Start 09/30/16 at 17:00 Insulin Glargine (Lantus) 18 unit DAILY@20 SC Last administered on 10/06/16 20: 32; Admin Dose 18 UNIT; Start 10/03/16 at 20:00 Collagenase (Santyl) 1 applic DAILY TOP Last administered on 10/07/16 08:08; Admin Dose 1 APPLIC; Start 10/05/16 at 17:00 Collagenase (Santyl) 1 applic PRN PRN TOP WOUND CARE; Start 10/05/16 at 15:30 Losartan Potassium (Cozaar) 25 mg DAILY PO ; Start 10/07/16 at 09:00 Metoprolol Tartrate (Lopressor) 25 mg BID NGT Last administered on 10/07/16 08: 35; Admin Dose 25 MG; Start 10/06/16 at 21:00 JAY LEONARDO Oct 07, 2016 09:46
--- NOTE | 2016-10-07 10:40 | PN ---
Date/Time of Note Date/Time of Note DATE: 10/07/16 TIME: 10:37 Assessment/Plan VTE Prophylaxis VTE Prophylaxis Intervention: SCD's VTE Contraindication Reason: hemorrhagic cerebral infarction Lines/Catheters IV Catheter Type (from Nrsg): PICC Line Central line still needed: Yes Urinary Cath still in place: Yes Reason Cath still needed: other (indicate) (terminal disease) Assessment/Plan Assessment/Plan 1. Intracranial bleeding including intraparenchymal hematoma and bilateral subdural hematomas with midline shift-patient has poor mentation and is not alert and nonverbal 2. Ventilator dependent respiratory failure secondary to encephalopathy from #1 s/p Trach 10/06/16 3. Atrial fibrillation, rate controlled,, on amiodarone and digoxin. 4. Cardiomyopathy with ejection fraction of 30% with stage III and stage IV diastolic dysfunction: status post AICD 5. Hypernatremia likely / #1 : Per Neurosurgery, Correction of hypernatremia would be expected to cause increase in brain edema and thus ICP 6. Pulmonary congestion with probable underlying bilateral pneumonia 7. Type 2 diabetes mellitus. Continue Lantus and SSI. 8. Normocytic anemia. The patient has a history of iron deficiency. Continue iron supplements. 9. Sepsis with Strep group B bacteremia 10. Thrombocytopenia 11. Chronic renal insufficiency 12. Accelerated hypertension: BP now controlled 13. Hyperlipidemia. Continue statins. 14. Hypothyroidism with a chronic multinodular goiter . on synthroid, Last TSH check showed good control Plan: * Continue ICU supportive care for now * Creatinine trending up, hold losartan * PEG placement per GI * Continue ventilator management and weaning/appreciate pulmonary input * Continue Lantus dosing for optimal blood sugar control * Patient continues on tube feeds and seems to be tolerating them. * Continue antibiotics as per infectious diseases. * Continue Keppra for seizure prophylaxis * Overall prognosis is likely poor / per neurosurgical notes, catheter angiogram is required to adequately define prognosis /follow-up further recommendations * Plan for tele transfer after PEG placement. DVT prophylaxis. Bilateral sequential compression devices. Gastrointestinal prophylaxis. Proton pump inhibitors. Prognosis: Poor CRITICAL CARE TIME: >35 mins Subjective 24 Hr Interval Summary Free Text/Dictation Patient seen and examined. s/p Trach yesterday. Nursing reports no acute overnight events. Exam/Review of Systems Vital Signs Vitals Vital Signs Date Time Temp Pulse Resp B/P Pulse Ox O2 Delivery O2 Flow Rate FiO2 10/07/16 08:12 80 10/07/16 08:00 98.7 34 121/60 99 Mechanical Ventilator 10/07/16 05:20 30 Intake and Output 10/06/16 10/06/16 10/07/16 15:00 23:00 07:00 Intake Total 380 ml 600 ml 210 ml Output Total 1 ml 530 ml 300 ml Balance 379 ml 70 ml -90 ml Exam General: The patient is intubated HEENT: Atraumatic, normocephalic. The pupils are equal although sluggish Chest: Normal Lungs: Clear to auscultation bilaterally Heart: Normal S1-S2, Regular rhythm and rate. Abdomen: Soft , nontender, nondistended , bowel sounds are present. Extremities: Flaccid, no edema no cyanosis Neurologic: No response to pain or verbal stimuli Results Result Diagram: 10/07/16 0400 10/07/16 0400 Results 24 hrs Laboratory Tests Test 10/06/16 13:49 10/06/16 17:03 10/06/16 20:23 10/07/16 01:15 Bedside Glucose 127 114 156 123 Test 10/07/16 04:00 10/07/16 04:07 10/07/16 08:47 White Blood Count 10.7 Red Blood Count 3.52 L Hemoglobin 9.8 L Hematocrit 32.9 L Mean Corpuscular Volume 93.5 Mean Corpuscular Hemoglobin 27.8 L Mean Corpuscular Hemoglobin Concent 29.8 L Red Cell Distribution Width 16.8 H Platelet Count 90 L Mean Platelet Volume Neutrophils % 84.2 H Lymphocytes % 6.8 L Monocytes % 7.7 Eosinophils % 0.5 Basophils % 0.1 Nucleated Red Blood Cells % 0.0 Neutrophils # 9.0 H Lymphocytes # 0.7 L Monocytes # 0.8 Eosinophils # 0.1 Basophils # 0.0 Nucleated Red Blood Cells # 0.0 Sodium Level 152 H Potassium Level 4.0 Chloride Level 116 H Carbon Dioxide Level 30 Anion Gap 10 Blood Urea Nitrogen 100 H Creatinine 1.34 H Glucose Level 104 Calcium Level 7.6 L Bedside Glucose 110 101 Medications Medications Current Medications Ondansetron HCl (Zofran Inj) 4 mg Q6H PRN IV NAUSEA AND/OR VOMITING; Start at 09:00 Acetaminophen (Tylenol Supp) 650 mg Q4H PRN [place] PAIN LEVEL 1-3 OR FEVER Last administered on 09/23/16 08:38; Admin Dose 650 MG; Start 09/21/16 at 09:00 Morphine Sulfate (morphine) 2 mg Q4H PRN IV PAIN LEVEL 7-10; Start 09/21/16 at 09:00 Pantoprazole (Protonix Iv) 40 mg DAILY@06 IV Last administered on 10/07/16 06: 01; Admin Dose 40 MG; Start 09/22/16 at 06:00 Lorazepam (Ativan) 1 mg Q2H PRN IV Seizures; Start 09/21/16 at 09:30 Amiodarone HCl (Cordarone) 200 mg DAILY PO Last administered on 10/07/16 08:35 ; Admin Dose 200 MG; Start 09/22/16 at 09:00 Digoxin (Digoxin) 0.125 mg DAILY PO Last administered on 10/07/16 09:29; Admin Dose 0.125 MG; Start 09/22/16 at 09:00 Atorvastatin Calcium (Lipitor) 40 mg DAILY@21 PO Last administered on 10/06/16 20:33; Admin Dose 40 MG; Start 09/21/16 at 21:00 Miscellaneous Information 1 ea NOTE XX ; Start 09/21/16 at 10:00 Glucose (Glutose) 15 gm Q15M PRN PO DECREASED GLUCOSE; Start 09/21/16 at 10:00 Glucose (Glutose) 22.5 gm Q15M PRN PO DECREASED GLUCOSE; Start 09/21/16 at 10: 00 Dextrose (D50w Syringe) 25 ml Q15M PRN IV DECREASED GLUCOSE; Start 09/21/16 at 10:00 Dextrose (D50w Syringe) 50 ml Q15M PRN IV DECREASED GLUCOSE; Start 09/21/16 at 10:00 Glucagon (Glucagen) 1 mg Q15M PRN IM DECREASED GLUCOSE; Start 09/21/16 at 10:00 Glucose (Glutose) 15 gm Q15M PRN BUCCAL DECREASED GLUCOSE; Start 09/21/16 at 10 :00 Ferrous Sulfate 300 mg 300 mg BID NGT Last administered on 10/07/16 08:34; Admin Dose 300 MG; Start 09/22/16 at 10:00 Levetiracetam (Keppra 500 Mg/ 100ml (Pmx)) 100 ml @ 400 mls/hr BID IVPB Last administered on 10/07/16 08:34; Admin Dose 400 MLS/HR; Start 09/24/16 at 14:30 Diagnostic Test (Pha) (Accu-Chek) 1 ea 02 XX Last administered on 10/05/16 01: 32; Admin Dose 1 EA; Start 09/28/16 at 02:00 Insulin Aspart (Novolog Insulin Pen) (Adult SC Insulin - Moder... Q4 SC Last administered on 10/06/16 20:39; Admin Dose 2 UNIT; Start 09/27/16 at 13:00 Desmopressin Acetate 2 mcg 2 mcg BID SC Last administered on 10/07/16 08:36; Admin Dose 2 MCG; Start 09/28/16 at 11:30 Sodium Chloride (1/2 NS) 1,000 ml @ 30 mls/hr Q24H IV Last administered on 10/06 21:47; Admin Dose 30 MLS/HR; Start 09/29/16 at 17:00 IV Flush (NS 10 ml) 10 ml PRN PRN IV FLUSH LINE; Start 09/30/16 at 17:00 Insulin Glargine (Lantus) 18 unit DAILY@20 SC Last administered on 10/06/16 20: 32; Admin Dose 18 UNIT; Start 10/03/16 at 20:00 Collagenase (Santyl) 1 applic DAILY TOP Last administered on 10/07/16 08:08; Admin Dose 1 APPLIC; Start 10/05/16 at 17:00 Collagenase (Santyl) 1 applic PRN PRN TOP WOUND CARE; Start 10/05/16 at 15:30 Losartan Potassium (Cozaar) 25 mg DAILY PO ; Start 10/07/16 at 09:00 Metoprolol Tartrate (Lopressor) 25 mg BID NGT Last administered on 10/07/16 08: 35; Admin Dose 25 MG; Start 10/06/16 at 21:00 LAINEY AGARWAL Oct 07, 2016 10:40
--- NOTE | 2016-10-07 14:05 | CONS ---
Date/Time of Note Date/Time of Note DATE: 10/07/16 TIME: 14:03 Assessment/Plan Assessment/Plan Chief Complaint/Hosp Course SUBJECTIVE: No events overnight. Noncommunicative, afebrile, NAD INDWELLINGS: trach, NG tube, Macedo catheter, PICC line placed on 09/30/2016. PHYSICAL EXAMINATION: GENERAL: Chronically ill-appearing, elderly woman who is noncommunicative, in no distress. HEENT: Head atraumatic, normocephalic. Sclerae anicteric. Buccal mucosa dry. CHEST: Rise symmetrical. Breath sounds clear. HEART: S1, S2. ABDOMEN: Soft, bowel sounds present. EXTREMITIES: Without cyanosis. ASSESSMENT: 1. Status post sepsis with Streptococcal bacteremia, completed treatment. 2. Acute encephalopathy. 3. Intracranial hemorrhage. 4. Diabetes. 5. Acute respiratory failure and cardiomyopathy. PLAN: The patient remains stable off antibiotics. S/p tracheostomy, pending PEG, will kowalski cx prn [facility] staff Problems: Consultation Date/Type/Reason Admit Date/Time September 21, 2016 at 08:29 Initial Consult Date 09/21/16 Type of Consultation: ID Referring Provider: LAINEY AGARWAL Exam/Review of Systems Vital Signs Vitals Vital Signs Date Time Temp Pulse Resp B/P Pulse Ox O2 Delivery O2 Flow Rate FiO2 10/07/16 13:35 67 20 96 30 10/07/16 12:00 98.4 90/51 Mechanical Ventilator Trach Collar Intake and Output 10/06/16 10/06/16 10/07/16 15:00 23:00 07:00 Intake Total 380 ml 600 ml 210 ml Output Total 1 ml 530 ml 300 ml Balance 379 ml 70 ml -90 ml Results Result Diagram: 10/07/16 0400 10/07/16 0400 Results 24 hrs Laboratory Tests Test 10/06/16 17:03 10/06/16 20:23 10/07/16 01:15 10/07/16 04:00 Bedside Glucose 114 156 123 White Blood Count 10.7 Red Blood Count 3.52 L Hemoglobin 9.8 L Hematocrit 32.9 L Mean Corpuscular Volume 93.5 Mean Corpuscular Hemoglobin 27.8 L Mean Corpuscular Hemoglobin Concent 29.8 L Red Cell Distribution Width 16.8 H Platelet Count 90 L Mean Platelet Volume Neutrophils % 84.2 H Lymphocytes % 6.8 L Monocytes % 7.7 Eosinophils % 0.5 Basophils % 0.1 Nucleated Red Blood Cells % 0.0 Neutrophils # 9.0 H Lymphocytes # 0.7 L Monocytes # 0.8 Eosinophils # 0.1 Basophils # 0.0 Nucleated Red Blood Cells # 0.0 Sodium Level 152 H Potassium Level 4.0 Chloride Level 116 H Carbon Dioxide Level 30 Anion Gap 10 Blood Urea Nitrogen 100 H Creatinine 1.34 H Glucose Level 104 Calcium Level 7.6 L Test 10/07/16 04:07 10/07/16 08:47 10/07/16 12:04 Bedside Glucose 110 101 92 Medications Medications Current Medications Ondansetron HCl (Zofran Inj) 4 mg Q6H PRN IV NAUSEA AND/OR VOMITING; Start at 09:00 Acetaminophen (Tylenol Supp) 650 mg Q4H PRN [place] PAIN LEVEL 1-3 OR FEVER Last administered on 09/23/16 08:38; Admin Dose 650 MG; Start 09/21/16 at 09:00 Morphine Sulfate (morphine) 2 mg Q4H PRN IV PAIN LEVEL 7-10; Start 09/21/16 at 09:00 Pantoprazole (Protonix Iv) 40 mg DAILY@06 IV Last administered on 10/07/16 06: 01; Admin Dose 40 MG; Start 09/22/16 at 06:00 Lorazepam (Ativan) 1 mg Q2H PRN IV Seizures; Start 09/21/16 at 09:30 Amiodarone HCl (Cordarone) 200 mg DAILY PO Last administered on 10/07/16 08:35 ; Admin Dose 200 MG; Start 09/22/16 at 09:00 Digoxin (Digoxin) 0.125 mg DAILY PO Last administered on 10/07/16 09:29; Admin Dose 0.125 MG; Start 09/22/16 at 09:00 Atorvastatin Calcium (Lipitor) 40 mg DAILY@21 PO Last administered on 10/06/16 20:33; Admin Dose 40 MG; Start 09/21/16 at 21:00 Miscellaneous Information 1 ea NOTE XX ; Start 09/21/16 at 10:00 Glucose (Glutose) 15 gm Q15M PRN PO DECREASED GLUCOSE; Start 09/21/16 at 10:00 Glucose (Glutose) 22.5 gm Q15M PRN PO DECREASED GLUCOSE; Start 09/21/16 at 10: 00 Dextrose (D50w Syringe) 25 ml Q15M PRN IV DECREASED GLUCOSE; Start 09/21/16 at 10:00 Dextrose (D50w Syringe) 50 ml Q15M PRN IV DECREASED GLUCOSE; Start 09/21/16 at 10:00 Glucagon (Glucagen) 1 mg Q15M PRN IM DECREASED GLUCOSE; Start 09/21/16 at 10:00 Glucose (Glutose) 15 gm Q15M PRN BUCCAL DECREASED GLUCOSE; Start 09/21/16 at 10 :00 Ferrous Sulfate 300 mg 300 mg BID NGT Last administered on 10/07/16 08:34; Admin Dose 300 MG; Start 09/22/16 at 10:00 Levetiracetam (Keppra 500 Mg/ 100ml (Pmx)) 100 ml @ 400 mls/hr BID IVPB Last administered on 10/07/16 08:34; Admin Dose 400 MLS/HR; Start 09/24/16 at 14:30 Diagnostic Test (Pha) (Accu-Chek) 1 ea 02 XX Last administered on 10/05/16 01: 32; Admin Dose 1 EA; Start 09/28/16 at 02:00 Insulin Aspart (Novolog Insulin Pen) (Adult SC Insulin - Moder... Q4 SC Last administered on 10/06/16 20:39; Admin Dose 2 UNIT; Start 09/27/16 at 13:00 Desmopressin Acetate 2 mcg 2 mcg BID SC Last administered on 10/07/16 08:36; Admin Dose 2 MCG; Start 09/28/16 at 11:30 Sodium Chloride (1/2 NS) 1,000 ml @ 30 mls/hr Q24H IV Last administered on 10/06 21:47; Admin Dose 30 MLS/HR; Start 09/29/16 at 17:00 IV Flush (NS 10 ml) 10 ml PRN PRN IV FLUSH LINE; Start 09/30/16 at 17:00 Insulin Glargine (Lantus) 18 unit DAILY@20 SC Last administered on 10/06/16 20: 32; Admin Dose 18 UNIT; Start 10/03/16 at 20:00 Collagenase (Santyl) 1 applic DAILY TOP Last administered on 10/07/16 08:08; Admin Dose 1 APPLIC; Start 10/05/16 at 17:00 Collagenase (Santyl) 1 applic PRN PRN TOP WOUND CARE; Start 10/05/16 at 15:30 Losartan Potassium (Cozaar) 25 mg DAILY PO ; Start 10/07/16 at 09:00 Metoprolol Tartrate (Lopressor) 25 mg BID NGT Last administered on 10/07/16t 08: 35; Admin Dose 25 MG; Start 10/06/16 at 21:00 ANGELINA GAMEZ NP Oct 07, 2016 14:05
--- NOTE | 2016-10-07 15:17 | PN ---
Date/Time of Note Date/Time of Note DATE: 10/07/16 TIME: 15:16 Assessment/Plan Lines/Catheters IV Catheter Type (from Nrsg): PICC Line Macedo in Place (from Nrsg): Yes Assessment/Plan Chief Complaint/Hosp Course Resp Failure SP Tracheostomy will continue vent support and trach care Problems: Subjective 24 Hr Interval Summary Constitutional: improved Pain Control: mild Exam/Review of Systems Vital Signs Vitals Vital Signs Date Time Temp Pulse Resp B/P Pulse Ox O2 Delivery O2 Flow Rate FiO2 10/07/16 14:00 80 18 108/57 96 Mechanical Ventilator 10/07/16 13:35 30 10/07/16 12:00 98.4 Intake and Output 10/06/16 10/06/16 10/07/16 15:00 23:00 07:00 Intake Total 380 ml 600 ml 210 ml Output Total 1 ml 530 ml 300 ml Balance 379 ml 70 ml -90 ml Exam ENMT: mucosa pink and moist, nl external ears & nose, nl lips & teeth, nl nasal mucosa & septum Neck: non-tender, supple Respiratory: clear to auscultation, normal air movement Cardiovascular: nl pulses, regular rate and rhythm Gastrointestinal: nl liver, spleen, non-tender, soft Results Result Diagram: 10/07/16 0400 10/07/160 LULY ESPINAL MD Oct 07, 2016 15:17
--- NOTE | 2016-10-07 16:45 | CONS ---
Date/Time of Note Date/Time of Note DATE: 10/07/16 TIME: 16:45 Consultation Date/Type/Reason Admit Date/Time September 21, 2016 at 08:29 Constitutional: other Psychological: no complaints Past Medical History Medical History: congestive heart failure, diabetes, high cholesterol, hypertension, hypothyroid, other (pulmonary hypertension, cardiomyopathy, sick sinus syndrome, aortic stenosis, anemia) Past Surgical History Past Surgical Hx: other (pacemaker placement) Social History Alcohol Use: none Smoking Status: Unknown if ever smoked Drug Use: none Exam/Review of Systems Vital Signs Vitals Vital Signs Date Time Temp Pulse Resp B/P Pulse Ox O2 Delivery O2 Flow Rate FiO2 10/07/16 16:35 70 22 97 30 10/07/16 16:00 98.4 107/54 Mechanical Ventilator Intake and Output 10/06/16 10/06/16 10/07/16 15:00 23:00 07:00 Intake Total 380 ml 600 ml 210 ml Output Total 1 ml 530 ml 300 ml Balance 379 ml 70 ml -90 ml Results Result Diagram: 10/07/16 0400 10/07/16 0400 Results 24 hrs Laboratory Tests Test 10/06/16 17:03 10/06/16 20:23 10/07/16 01:15 10/07/16 04:00 Bedside Glucose 114 156 123 White Blood Count 10.7 Red Blood Count 3.52 L Hemoglobin 9.8 L Hematocrit 32.9 L Mean Corpuscular Volume 93.5 Mean Corpuscular Hemoglobin 27.8 L Mean Corpuscular Hemoglobin Concent 29.8 L Red Cell Distribution Width 16.8 H Platelet Count 90 L Mean Platelet Volume Neutrophils % 84.2 H Lymphocytes % 6.8 L Monocytes % 7.7 Eosinophils % 0.5 Basophils % 0.1 Nucleated Red Blood Cells % 0.0 Neutrophils # 9.0 H Lymphocytes # 0.7 L Monocytes # 0.8 Eosinophils # 0.1 Basophils # 0.0 Nucleated Red Blood Cells # 0.0 Sodium Level 152 H Potassium Level 4.0 Chloride Level 116 H Carbon Dioxide Level 30 Anion Gap 10 Blood Urea Nitrogen 100 H Creatinine 1.34 H Glucose Level 104 Calcium Level 7.6 L Test 10/07/16 04:07 10/07/16 08:47 10/07/16 12:04 Bedside Glucose 110 101 92 Medications Medications Current Medications Ondansetron HCl (Zofran Inj) 4 mg Q6H PRN IV NAUSEA AND/OR VOMITING; Start at 09:00 Acetaminophen (Tylenol Supp) 650 mg Q4H PRN [place] PAIN LEVEL 1-3 OR FEVER Last administered on 09/23/16 08:38; Admin Dose 650 MG; Start 09/21/16 at 09:00 Morphine Sulfate (morphine) 2 mg Q4H PRN IV PAIN LEVEL 7-10; Start 09/21/16 at 09:00 Lorazepam (Ativan) 1 mg Q2H PRN IV Seizures; Start 09/21/16 at 09:30 Amiodarone HCl (Cordarone) 200 mg DAILY PO Last administered on 10/07/16 08:35 ; Admin Dose 200 MG; Start 09/22/16 at 09:00 Digoxin (Digoxin) 0.125 mg DAILY PO Last administered on 10/07/16 09:29; Admin Dose 0.125 MG; Start 09/22/16 at 09:00 Atorvastatin Calcium (Lipitor) 40 mg DAILY@21 PO Last administered on 10/06/16 20:33; Admin Dose 40 MG; Start 09/21/16 at 21:00 Miscellaneous Information 1 ea NOTE XX ; Start 09/21/16 at 10:00 Glucose (Glutose) 15 gm Q15M PRN PO DECREASED GLUCOSE; Start 09/21/16 at 10:00 Glucose (Glutose) 22.5 gm Q15M PRN PO DECREASED GLUCOSE; Start 09/21/16 at 10: 00 Dextrose (D50w Syringe) 25 ml Q15M PRN IV DECREASED GLUCOSE; Start 09/21/16 at 10:00 Dextrose (D50w Syringe) 50 ml Q15M PRN IV DECREASED GLUCOSE; Start 09/21/16 at 10:00 Glucagon (Glucagen) 1 mg Q15M PRN IM DECREASED GLUCOSE; Start 09/21/16 at 10:00 Glucose (Glutose) 15 gm Q15M PRN BUCCAL DECREASED GLUCOSE; Start 09/21/16 at 10 :00 Ferrous Sulfate (Feosol Liquid Cup) 300 mg BID NGT Last administered on 08:34; Admin Dose 300 MG; Start 09/22/16 at 10:00 Diagnostic Test (Pha) (Accu-Chek) 1 ea 02 XX Last administered on 10/05/16 01: 32; Admin Dose 1 EA; Start 09/28/16 at 02:00 Insulin Aspart (Novolog Insulin Pen) (Adult SC Insulin - Moder... Q4 SC Last administered on 10/06/16 20:39; Admin Dose 2 UNIT; Start 09/27/16 at 13:00 Desmopressin Acetate 2 mcg 2 mcg BID SC Last administered on 10/07/16 08:36; Admin Dose 2 MCG; Start 09/28/16 at 11:30 Sodium Chloride (1/2 NS) 1,000 ml @ 30 mls/hr Q24H IV Last administered on 10/06 21:47; Admin Dose 30 MLS/HR; Start 09/29/16 at 17:00 IV Flush (NS 10 ml) 10 ml PRN PRN IV FLUSH LINE; Start 09/30/16 at 17:00 Insulin Glargine (Lantus) 18 unit DAILY@20 SC Last administered on 10/06/16 20: 32; Admin Dose 18 UNIT; Start 10/03/16 at 20:00 Collagenase (Santyl) 1 applic DAILY TOP Last administered on 10/07/16 08:08; Admin Dose 1 APPLIC; Start 10/05/16 at 17:00 Collagenase (Santyl) 1 applic PRN PRN TOP WOUND CARE; Start 10/05/16 at 15:30 Losartan Potassium (Cozaar) 25 mg DAILY PO ; Start 10/07/16 at 09:00; Status Future Hold Metoprolol Tartrate (Lopressor) 25 mg BID NGT Last administered on 10/07/16 08: 35; Admin Dose 25 MG; Start 10/06/16 at 21:00 Levetiracetam (Keppra) 500 mg BID NGT ; Start 10/07/16 at 21:00 Pantoprazole (Protonix Tab) 40 mg DAILY@06 PO ; Start 10/08/16 at 06:00 ALFREDO ARCHULETA MD Oct 07, 2016 16:45
[2016-10-07] MEDS: INSULIN GLARGINE [LANtus] 3 ML PEN SC SCH (20:00)
[2016-10-07] MEDS: LEVETIRACETAM 500 MG TAB NGT SCH (21:53)
[2016-10-07] MEDS: ATORVASTATIN 40 MG TAB PO SCH (21:53)
[2016-10-08] VITALS (40 sets, daily range): BP systolic 89–118; BP diastolic 50–61; PULSE 79–80; RESP 18–19
[2016-10-08] MEDS: Insulin NOVOLOG SS MODERATE Algorithm(NPO/TPN/ENTERAL FEEDS) SC SCH ×6 (01:00→21:00)
[2016-10-08] MEDS: ACCU-CHEK XX SCH (02:00)
[2016-10-08] MEDS: PANTOPRAZOLE (EC) 40 MG TAB PO SCH (05:42)
[2016-10-08] MEDS ORDERED: CEFAZOLIN 1 GM/50 ML (PMX) 50 ML IVPB SCH (06:00)
[2016-10-08] MEDS: LEVOTHYROXINE 100 MCG TAB PO SCH (06:03)
--- NOTE | 2016-10-08 07:16 | PN ---
Date/Time of Note Date/Time of Note DATE: 10/08/16 TIME: 07:10 Assessment/Plan VTE Prophylaxis VTE Prophylaxis Intervention: contraindicated Lines/Catheters [facility] PICC Line Central line still needed: Yes Urinary Cath still in place: Yes Reason Cath still needed: urinary retention Assessment/Plan Problems: (1) Cerebral hemorrhage Status: Acute Comment: As per neurosurgery this patient was not a candidate for surgical intervention as the risks far outweighed the benefits. She has been maintained in the intensive care unit on supportive care however she has not improved. She has not had a tracheostomy in place and is pending a PEG tube. Overall prognosis for meaningful recovery is poor. (2) Respiratory failure Status: Acute Comment: Remains ventilator dependent with a PEG tube. Qualifiers: Chronicity: acute Respiratory failure complication: hypoxia and hypercapnia Qualified Code: J96.01 - Acute respiratory failure with hypoxia and hypercapnia (3) Bilateral subdural hematomas Status: Acute Comment: Noted. No intervention indicated as intervention would likely cause significant harm in excess of benefits (4) Systolic dysfunction with acute on chronic heart failure Status: Chronic Comment: Patient's fluid status presently is actually somewhat dehydrated. (5) Chronic atrial fibrillation Status: Chronic Comment: Now would not be the time to resume anticoagulation. Her rate is controlled. (6) Aortic stenosis Status: Chronic Comment: Noted. Qualifiers: Cardiac valve disease etiology: etiology unspecified Qualified Code: I35.0 - Aortic valve stenosis, unspecified etiology (7) Status post implantation of automatic cardioverter/defibrillator (AICD) Status: Chronic Comment: Device is in place and is supporting her (8) Hypothyroid Status: Chronic Comment: Remains stable on replacement therapy Qualifiers: Hypothyroidism type: unspecified Qualified Code: E03.9 - Hypothyroidism, unspecified type (9) Streptococcal sepsis, group D Status: Resolved Comment: Completing course of antibiotics. (10) Diabetes mellitus type 2 in obese Status: Chronic Comment: Adequate control and fairly straightforward regimen (11) Thrombocytopenia Status: Chronic Comment: Thrombocytopenia is persistent long-term. The question is raised about whether or not this might actually be a sign of underlying liver dysfunction. No indication for intervention at this time (12) Acute kidney injury Status: Acute Comment: Her creatinine is holding reasonably well but she is clearly developed a prerenal state. Given that we are now doing the tube feedings and her 17 days out from the acute intracranial hemorrhage we may be able to liberalize her fluid status slightly. (13) Prerenal azotemia Status: Acute Comment: As above. (14) Essential hypertension Status: Chronic Comment: Stable and controlled. (15) Acute anoxic encephalopathy Status: Acute Comment: Her encephalopathy has not improved despite aggressive attempts at assistance. Overall she is going to need long-term placement. This will require a facility that can handle of the tracheostomy and ventilator dependence and the feeding tube. She is not on dialysis Subjective 24 Hr Interval Summary Free Text/Dictation Hospital day 17; ICU day 17 Subjective hx not possible: pt non-verbal Exam/Review of Systems Vital Signs Vitals Vital Signs Date Time Temp Pulse Resp B/P Pulse Ox O2 Delivery O2 Flow Rate FiO2 10/08/16 06:00 80 18 93/54 97 Mechanical Ventilator 10/08/16 05:10 30 10/08/16 04:00 98.9 Intake and Output 10/07/16 10/07/16 10/08/16 15:00 23:00 07:00 Intake Total 362.5 ml 590 ml 183 ml Output Total 380 ml 235 ml 240 ml Balance -17.5 ml 355 ml -57 ml Exam Nonresponsive to all stimuli. Tracheostomy in place. Constitutional: non-verbal Neck: non-tender, other (Tracheostomy in place), supple Respiratory: clear to auscultation, normal air movement Cardiovascular: irregular rhythm, nl pulses, other (No S3 PMI is laterally displaced) Gastrointestinal: nl liver, spleen, non-tender, soft Extremities: normal pulses, other (Multiple calluses on bilateral feet) Results Result Diagram: 10/07/16 0400 10/07/16 0400 Results 24 hrs Laboratory Tests Test 10/07/16 08:47 10/07/16 12:04 10/07/16 17:29 10/07/16 21:58 Bedside Glucose 101 92 88 135 Test 10/08/16 05:20 Bedside Glucose 124 Medications Medications Current Medications Ondansetron HCl (Zofran Inj) 4 mg Q6H PRN IV NAUSEA AND/OR VOMITING; Start at 09:00 Acetaminophen (Tylenol Supp) 650 mg Q4H PRN [place] PAIN LEVEL 1-3 OR FEVER Last administered on 09/23/16t 08:38; Admin Dose 650 MG; Start 09/21/16 at 09:00 Morphine Sulfate (morphine) 2 mg Q4H PRN IV PAIN LEVEL 7-10; Start 09/21/16 at 09:00 Lorazepam (Ativan) 1 mg Q2H PRN IV Seizures; Start 09/21/16 at 09:30 Amiodarone HCl (Cordarone) 200 mg DAILY PO Last administered on 10/07/16 08:35 ; Admin Dose 200 MG; Start 09/22/16 at 09:00 Digoxin (Digoxin) 0.125 mg DAILY PO Last administered on 10/07/16 09:29; Admin Dose 0.125 MG; Start 09/22/16 at 09:00 Atorvastatin Calcium (Lipitor) 40 mg DAILY@21 PO Last administered on 10/07/16 21:53; Admin Dose 40 MG; Start 09/21/16 at 21:00 Miscellaneous Information 1 ea NOTE XX ; Start 09/21/16 at 10:00 Glucose (Glutose) 15 gm Q15M PRN PO DECREASED GLUCOSE; Start 09/21/16 at 10:00 Glucose (Glutose) 22.5 gm Q15M PRN PO DECREASED GLUCOSE; Start 09/21/16 at 10: 00 Dextrose (D50w Syringe) 25 ml Q15M PRN IV DECREASED GLUCOSE; Start 09/21/16 at 10:00 Dextrose (D50w Syringe) 50 ml Q15M PRN IV DECREASED GLUCOSE; Start 09/21/16 at 10:00 Glucagon (Glucagen) 1 mg Q15M PRN IM DECREASED GLUCOSE; Start 09/21/16 at 10:00 Glucose (Glutose) 15 gm Q15M PRN BUCCAL DECREASED GLUCOSE; Start 09/21/16 at 10 :00 Ferrous Sulfate (Feosol Liquid Cup) 300 mg BID NGT Last administered on 21:53; Admin Dose 300 MG; Start 09/22/16 at 10:00 Diagnostic Test (Pha) (Accu-Chek) 1 ea 02 XX Last administered on 10/05/16 01: 32; Admin Dose 1 EA; Start 09/28/16 at 02:00 Insulin Aspart (Novolog Insulin Pen) (Adult SC Insulin - Moder... Q4 SC Last administered on 10/06/16 20:39; Admin Dose 2 UNIT; Start 09/27/16 at 13:00 Desmopressin Acetate 2 mcg 2 mcg BID SC Last administered on 10/07/16 21:56; Admin Dose 2 MCG; Start 09/28/16 at 11:30 Sodium Chloride (1/2 NS) 1,000 ml @ 30 mls/hr Q24H IV Last administered on 10/06 21:47; Admin Dose 30 MLS/HR; Start 09/29/16 at 17:00 IV Flush (NS 10 ml) 10 ml PRN PRN IV FLUSH LINE; Start 09/30/16 at 17:00 Insulin Glargine (Lantus) 18 unit DAILY@20 SC Last administered on 10/06/16 20: 32; Admin Dose 18 UNIT; Start 10/03/16 at 20:00 Collagenase (Santyl) 1 applic DAILY TOP Last administered on 10/07/16 08:08; Admin Dose 1 APPLIC; Start 10/05/16 at 17:00 Collagenase (Santyl) 1 applic PRN PRN TOP WOUND CARE; Start 10/05/16 at 15:30 Losartan Potassium (Cozaar) 25 mg DAILY PO ; Start 10/07/16 at 09:00; Status Future Hold Metoprolol Tartrate (Lopressor) 25 mg BID NGT Last administered on 10/07/16 21: 54; Admin Dose 25 MG; Start 10/06/16 at 21:00 Levetiracetam (Keppra) 500 mg BID NGT Last administered on 10/07/16 21:53; Admin Dose 500 MG; Start 10/07/16 at 21:00 Pantoprazole (Protonix Tab) 40 mg DAILY@06 PO Last administered on 10/08/16 05: 42; Admin Dose 40 MG; Start 10/08/16 at 06:00 REBECA BRADY MD Oct 08, 2016 07:16
[2016-10-08] MEDS ORDERED: LACTATED RINGER'S 500 ML IV ONE (07:30)
[2016-10-08] MEDS ORDERED: MIDAZOLAM 1 MG/ML 2 ML INJ ONE (08:29)
[2016-10-08] MEDS ORDERED: FENTAnyl 50 MCG/ML VIAL ONE (08:29)
[2016-10-08] MEDS ORDERED: LIDOCAINE 2% (SDV) 5 ML INJ ONE (08:30)
[2016-10-08] MEDS ORDERED: PROPOFOL 20 ML ONE (08:30)
[2016-10-08] MEDS: COLLAGENASE 30 GM TUBE TOP SCH ×2 (09:00→11:58)
[2016-10-08] MEDS: METOPROLOL 25 MG TAB NGT SCH ×2 (09:00→21:00)
[2016-10-08] MEDS: SOD CHLORIDE 0.45% 1,000 ML IV SCH ×2 (09:24→17:00)
[2016-10-08] MEDS: FERROUS SULFATE 60 MG/ML 5ML CUP NGT SCH ×2 (09:24→20:59)
[2016-10-08] MEDS: LEVETIRACETAM 500 MG TAB NGT SCH ×2 (09:25→20:59)
[2016-10-08] MEDS: DIGOXIN 0.125 MG TAB PO SCH (09:26)
[2016-10-08] MEDS: AMIODARONE 200 MG TAB PO SCH (09:26)
[2016-10-08] MEDS: DESMOPRESSIN 4 MCG INJ SC SCH ×2 (09:27→21:11)
--- NOTE | 2016-10-08 09:52 | GILP ---
DATE OF PROCEDURE: 10/08/2016 PROCEDURE: Esophagogastroduodenoscopy with percutaneous endoscopic gastrostomy tube placement. BRIEF HISTORY AND INDICATIONS: The patient will receive gastrostomy tube for enteral feeding suppor t. She is post-tracheostomy tube placement. PREMEDICATION: Monitored anesthesia care by anesthesiologist. SURGEON: Elias Banegas MD INSTRUMENT USED: Olympus colonoscope. TECHNIQUE: After informed consent, with the patient and/or family members understanding the procedur e, its indications, potential risks and complications, including but not limited to: allergic reacti on, bleeding, perforation, infection or leakage, and after all pertinent questions were answered to the patient and/or family members satisfaction, the patient and/or family member signed witnessed in formed consent. Following this, premedication was administered slowly IV push, under careful cardiovascular and resp iratory monitoring with pulse oximetry, blood pressure and bus driver/monitor. Once the sedative effect was achieved the patient was place in the supine position, the panendoscope was introduced and advanced under visual guidance. Careful examination of the upper gastrointestinal tract, on insertion as well as withdrawal of the i nstrument disclosed the following findings: ESOPHAGUS: The mucosa of the entire esophagus appears within normal limits. There is no evidence of esophagitis, varices, neoplasm or stricture. STOMACH: There is erythema and edema of the mucosa of a moderate degree. No evidence of ulceration or stigmata of recent bleeding is present. PYLORUS: The pylorus appears patent and within normal limits, with no evidence of gastric outlet ob struction. DUODENUM: The duodenal mucosa was carefully examined in the duodenal bulb as well as the second por tion of the duodenum and appears unremarkable with no evidence of duodenitis, ulcer or neoplasm. The instrument was then brought back to the stomach and the anterior wall mid-body was identified by transillumination and "finger indentation", this area was then marked in the anterior wall of the a bdomen, it was cleansed with Betadine and infiltrated with Xylocaine 1%. Following this a trocar nee dle was introduced into the gastric lumen under visual control with the endoscope, once in the gastr ic lumen a guide wire was advanced and secured with a polypectomy snare, at this point the endoscope was withdrawn bringing the guide wire out through the patients mouth. Following this a [place]-20 ga strostomy tube was introduced over the guide wire, with the Koko-Jak technique without difficulty , a small incision was performed in the skin to allow easy passage of the G-tube, once the position of the gastrostomy tube was confirmed, the external stopper and connectors were installed, and a gonzalo an dressing applied. The patient tolerated the procedure well and was transferred out of the endoscopy suite awake, and i n good condition to continue recovery under observation, feedings will started in the next 12-24h an d gastrostomy care will be instituted. IMPRESSION: 1. Moderate gastritis. 2. Uneventful percutaneous endoscopic gastrostomy tube placement with placement of [place]-20 gastro stomy tube with no incident or complication. PLAN: Hold Eliquis for 24 hours. Continue PPI therapy. May use gastrostomy tube for medications t unique and start feedings tomorrow morning. Dictated By: ELIAS BANEGAS MS/JARRELL Conf#: [id number] DID#: [id number]
--- NOTE | 2016-10-08 11:00 | CONS ---
Date/Time of Note Date/Time of Note DATE: 10/08/16 TIME: 10:59 Assessment/Plan Assessment/Plan Additional Assessment/Plan 1. Congestive heart failure exacerbation, systolic, acute on chronic, by recent echocardiogram in 07/2016 revealing ejection fraction of 25%- euvolemic by exam, will follow - stable 2. Cardiomyopathy with decreased left ventricular ejection fraction, last ejection fraction approximately 25% by echocardiogram 07/2016. 3. History of automatic implantable cardioverter-defibrillator- no evidence of malfxn- unchanged. 4. History of paroxysmal atrial fibrillation, previously on systemic anticoagulation. 5. Subdural hematomas with midline shift and vasogenic edema- no sig change by serial CT done this AM- neuro follows, no intervention planned. 6. Encephalopathy- unchanged- no surgical intervention planned 7. Hypertension- well Rx, con't to follow. 8. Anemia. 9. Thrombocytopenia 10.Hypernatremia 11.Bacteremia - on anti-bx. Consultation Date/Type/Reason Admit Date/Time September 21, 2016 at 08:29 Initial Consult Date 09/21/16 Type of Consultation: ID Referring Provider: LAINEY AGARWAL 24 HR Interval Summary Free Text/Dictation No acute events, overall good fluid status - soledad monitor clinically. ROS: No fever, no chills, no nausea, no vomiting, no diarrhea/constipation No recent weight changes No chest pain, no PND, no orthopnea No dizziness, blurred vision No thirst, no heat or cold intolerance (per nurse) Exam/Review of Systems Vital Signs Vitals Vital Signs Date Time Temp Pulse Resp B/P Pulse Ox O2 Delivery O2 Flow Rate FiO2 10/08/16 08:45 80 18 106/57 100 10/08/16 08:14 Trach Collar 10/08/16 08:00 98.4 10/08/16 08:00 30 Intake and Output 10/07/16 10/07/16 10/08/16 15:00 23:00 07:00 Intake Total 362.5 ml 590 ml 183 ml Output Total 380 ml 235 ml 280 ml Balance -17.5 ml 355 ml -97 ml Exam General: WN/WD/NAD, AOx 0 HEENT: Unicetric/atraumatic/EOMI (does not follow commands) NECK: JVD elevated, no thyromegaly, intubated Lymph: no lymphadenopathy HEART: regular with no S3, II/ systolic murmur at apex LUNGS: Coarse sounds ABD: soft, NT, ND, +BS : Intact Neuro: non focal SKIN: chronic changes EXT: trace edema Results Result Diagram: 10/07/16 0400 10/07/16 0400 Results 24 hrs Laboratory Tests Test 10/07/16 12:04 10/07/16 17:29 10/07/16 21:58 10/08/16 05:20 Bedside Glucose 92 88 135 124 Test 10/08/16 08:37 Bedside Glucose 114 Medications Medications Current Medications Ondansetron HCl (Zofran Inj) 4 mg Q6H PRN IV NAUSEA AND/OR VOMITING; Start at 09:00 Acetaminophen (Tylenol Supp) 650 mg Q4H PRN [place] PAIN LEVEL 1-3 OR FEVER Last administered on 09/23/16 08:38; Admin Dose 650 MG; Start 09/21/16 at 09:00 Morphine Sulfate (morphine) 2 mg Q4H PRN IV PAIN LEVEL 7-10; Start 09/21/16 at 09:00 Lorazepam (Ativan) 1 mg Q2H PRN IV Seizures; Start 09/21/16 at 09:30 Amiodarone HCl (Cordarone) 200 mg DAILY PO Last administered on 10/08/16 09:26 ; Admin Dose 200 MG; Start 09/22/16 at 09:00 Digoxin (Digoxin) 0.125 mg DAILY PO Last administered on 10/08/16 09:26; Admin Dose 0.125 MG; Start 09/22/16 at 09:00 Atorvastatin Calcium (Lipitor) 40 mg DAILY@21 PO Last administered on 10/07/16 21:53; Admin Dose 40 MG; Start 09/21/16 at 21:00 Miscellaneous Information 1 ea NOTE XX ; Start 09/21/16 at 10:00 Glucose (Glutose) 15 gm Q15M PRN PO DECREASED GLUCOSE; Start 09/21/16 at 10:00 Glucose (Glutose) 22.5 gm Q15M PRN PO DECREASED GLUCOSE; Start 09/21/16 at 10: 00 Dextrose (D50w Syringe) 25 ml Q15M PRN IV DECREASED GLUCOSE; Start 09/21/16 at 10:00 Dextrose (D50w Syringe) 50 ml Q15M PRN IV DECREASED GLUCOSE; Start 09/21/16 at 10:00 Glucagon (Glucagen) 1 mg Q15M PRN IM DECREASED GLUCOSE; Start 09/21/16 at 10:00 Glucose (Glutose) 15 gm Q15M PRN BUCCAL DECREASED GLUCOSE; Start 09/21/16 at 10 :00 Ferrous Sulfate (Feosol Liquid Cup) 300 mg BID NGT Last administered on 09:24; Admin Dose 300 MG; Start 09/22/16 at 10:00 Diagnostic Test (Pha) (Accu-Chek) 1 ea 02 XX Last administered on 10/05/16 01: 32; Admin Dose 1 EA; Start 09/28/16 at 02:00 Insulin Aspart (Novolog Insulin Pen) (Adult SC Insulin - Moder... Q4 SC Last administered on 10/06/16 20:39; Admin Dose 2 UNIT; Start 09/27/16 at 13:00 Desmopressin Acetate 2 mcg 2 mcg BID SC Last administered on 10/08/16 09:27; Admin Dose 2 MCG; Start 09/28/16 at 11:30 Sodium Chloride (1/2 NS) 1,000 ml @ 30 mls/hr Q24H IV Last administered on 10/08 09:24; Admin Dose 30 MLS/HR; Start 09/29/16 at 17:00 IV Flush (NS 10 ml) 10 ml PRN PRN IV FLUSH LINE; Start 09/30/16 at 17:00 Insulin Glargine (Lantus) 18 unit DAILY@20 SC Last administered on 10/06/16 20: 32; Admin Dose 18 UNIT; Start 10/03/16 at 20:00 Collagenase (Santyl) 1 applic DAILY TOP Last administered on 10/07/16 08:08; Admin Dose 1 APPLIC; Start 10/05/16 at 17:00 Collagenase (Santyl) 1 applic PRN PRN TOP WOUND CARE; Start 10/05/16 at 15:30 Losartan Potassium (Cozaar) 25 mg DAILY PO ; Start 10/07/16 at 09:00; Status Future Hold Metoprolol Tartrate (Lopressor) 25 mg BID NGT Last administered on 10/07/16 21: 54; Admin Dose 25 MG; Start 10/06/16 at 21:00 Levetiracetam (Keppra) 500 mg BID NGT Last administered on 10/08/16 09:25; Admin Dose 500 MG; Start 10/07/16 at 21:00 Pantoprazole (Protonix Tab) 40 mg DAILY@06 PO Last administered on 10/08/16 05: 42; Admin Dose 40 MG; Start 10/08/16 at 06:00 MILAGROS PRESSLEY MD Oct 08, 2016 11:00
--- NOTE | 2016-10-08 11:07 | CONS ---
Date/Time of Note Date/Time of Note DATE: 10/08/16 TIME: 11:05 Assessment/Plan Assessment/Plan Additional Assessment/Plan Ventilator setting; AC of 18, tidal volume 450, PEEP of 5, 30% FiO2. Next Assessment recommendations; next 1. Patient admitted for massive intracranial hemorrhage, status post tracheostomy and PEG tube placement. Patient exhibiting profound mental unresponsiveness due to extensive brain damage. 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 3. No overt seizure activity noted. Continue current treatment. Patient will be transferred to a rehab facility. Prognosis is poor. Consultation Date/Type/Reason Admit Date/Time September 21, 2016 at 08:29 Initial Consult Date 09/21/16 Type of Consultation: Pulmonary/critical care Referring Provider: LAINEY AGARWAL 24 HR Interval Summary Free Text/Dictation Patient condition remains stable. Remains profoundly unresponsive. Still requiring full ventilator support. No overt seizure activity noted. Patient has remained hemodynamically stable. Underwent PEG tube placement this morning. General exam; elderly lady, on ventilator via tracheostomy currently in no distress. Remains unresponsive. Exam/Review of Systems Vital Signs Vitals Vital Signs Date Time Temp Pulse Resp B/P Pulse Ox O2 Delivery O2 Flow Rate FiO2 10/08/16 08:45 80 18 106/57 100 10/08/16 08:14 Trach Collar 10/08/16 08:00 98.4 10/08/16 08:00 30 Intake and Output 10/07/16 10/07/16 10/08/16 15:00 23:00 07:00 Intake Total 362.5 ml 590 ml 183 ml Output Total 380 ml 235 ml 280 ml Balance -17.5 ml 355 ml -97 ml Exam HEENT exam is; supple neck, no JVD. No lymphadenopathy. Midline trachea. No thyromegaly. Tracheostomy in place. Insertion site is clean. Chest examination; clear to auscultation. S1-S2 audible, no murmurs. Regular rhythm. Abdomen examination; soft, no organomegaly bowel sounds audible. PEG tube in place. Extremity examination; no peripheral edema. Pulses 1+ bilaterally. PROCESS ENGINEERING INTERN examination; patient remains profoundly unresponsive. Results Result Diagram: 10/07/16 0400 10/07/16 0400 Results 24 hrs Laboratory Tests Test 10/07/16 12:04 10/07/16 17:29 10/07/16 21:58 10/08/16 05:20 Bedside Glucose 92 88 135 124 Test 10/08/16 08:37 Bedside Glucose 114 Medications Medications Current Medications Ondansetron HCl (Zofran Inj) 4 mg Q6H PRN IV NAUSEA AND/OR VOMITING; Start at 09:00 Acetaminophen (Tylenol Supp) 650 mg Q4H PRN [place] PAIN LEVEL 1-3 OR FEVER Last administered on 09/23/16 08:38; Admin Dose 650 MG; Start 09/21/16 at 09:00 Morphine Sulfate (morphine) 2 mg Q4H PRN IV PAIN LEVEL 7-10; Start 09/21/16 at 09:00 Lorazepam (Ativan) 1 mg Q2H PRN IV Seizures; Start 09/21/16 at 09:30 Amiodarone HCl (Cordarone) 200 mg DAILY PO Last administered on 10/08/16 09:26 ; Admin Dose 200 MG; Start 09/22/16 at 09:00 Digoxin (Digoxin) 0.125 mg DAILY PO Last administered on 10/08/16 09:26; Admin Dose 0.125 MG; Start 09/22/16 at 09:00 Atorvastatin Calcium (Lipitor) 40 mg DAILY@21 PO Last administered on 10/07/16 21:53; Admin Dose 40 MG; Start 09/21/16 at 21:00 Miscellaneous Information 1 ea NOTE XX ; Start 09/21/16 at 10:00 Glucose (Glutose) 15 gm Q15M PRN PO DECREASED GLUCOSE; Start 09/21/16 at 10:00 Glucose (Glutose) 22.5 gm Q15M PRN PO DECREASED GLUCOSE; Start 09/21/16 at 10: 00 Dextrose (D50w Syringe) 25 ml Q15M PRN IV DECREASED GLUCOSE; Start 09/21/16 at 10:00 Dextrose (D50w Syringe) 50 ml Q15M PRN IV DECREASED GLUCOSE; Start 09/21/16 at 10:00 Glucagon (Glucagen) 1 mg Q15M PRN IM DECREASED GLUCOSE; Start 09/21/16 at 10:00 Glucose (Glutose) 15 gm Q15M PRN BUCCAL DECREASED GLUCOSE; Start 09/21/16 at 10 :00 Ferrous Sulfate (Feosol Liquid Cup) 300 mg BID NGT Last administered on 09:24; Admin Dose 300 MG; Start 09/22/16 at 10:00 Diagnostic Test (Pha) (Accu-Chek) 1 ea 02 XX Last administered on 10/05/16 01: 32; Admin Dose 1 EA; Start 09/28/16 at 02:00 Insulin Aspart (Novolog Insulin Pen) (Adult SC Insulin - Moder... Q4 SC Last administered on 10/06/16 20:39; Admin Dose 2 UNIT; Start 09/27/16 at 13:00 Desmopressin Acetate 2 mcg 2 mcg BID SC Last administered on 10/08/16 09:27; Admin Dose 2 MCG; Start 09/28/16 at 11:30 Sodium Chloride (1/2 NS) 1,000 ml @ 30 mls/hr Q24H IV Last administered on 10/08 09:24; Admin Dose 30 MLS/HR; Start 09/29/16 at 17:00 IV Flush (NS 10 ml) 10 ml PRN PRN IV FLUSH LINE; Start 09/30/16 at 17:00 Insulin Glargine (Lantus) 18 unit DAILY@20 SC Last administered on 10/06/16 20: 32; Admin Dose 18 UNIT; Start 10/03/16 at 20:00 Collagenase (Santyl) 1 applic DAILY TOP Last administered on 10/07/16 08:08; Admin Dose 1 APPLIC; Start 10/05/16 at 17:00 Collagenase (Santyl) 1 applic PRN PRN TOP WOUND CARE; Start 10/05/16 at 15:30 Losartan Potassium (Cozaar) 25 mg DAILY PO ; Start 10/07/16 at 09:00; Status Future Hold Metoprolol Tartrate (Lopressor) 25 mg BID NGT Last administered on 10/07/16 21: 54; Admin Dose 25 MG; Start 10/06/16 at 21:00 Levetiracetam (Keppra) 500 mg BID NGT Last administered on 10/08/16 09:25; Admin Dose 500 MG; Start 10/07/16 at 21:00 Pantoprazole (Protonix Tab) 40 mg DAILY@06 PO Last administered on 10/08/16 05: 42; Admin Dose 40 MG; Start 10/08/16 at 06:00 JAY LEONARDO Oct 08, 2016 11:07
--- NOTE | 2016-10-08 14:08 | CONS ---
Date/Time of Note Date/Time of Note DATE: 10/08/16 TIME: 14:07 Assessment/Plan Assessment/Plan Chief Complaint/Hosp Course SUBJECTIVE: No events overnight. Noncommunicative, afebrile, NAD INDWELLINGS: trach, PEG, Macedo catheter, PICC line placed on 09/30/2016. PHYSICAL EXAMINATION: GENERAL: Chronically ill-appearing, elderly woman who is noncommunicative, in no distress. HEENT: Head atraumatic, normocephalic. Sclerae anicteric. Buccal mucosa dry. CHEST: Rise symmetrical. Breath sounds clear. HEART: S1, S2. ABDOMEN: Soft, bowel sounds present. EXTREMITIES: Without cyanosis. ASSESSMENT: 1. Status post sepsis with Streptococcal bacteremia, completed treatment. 2. Acute encephalopathy. 3. Intracranial hemorrhage. 4. Diabetes. 5. Acute respiratory failure and cardiomyopathy. PLAN: The patient remains stable off antibiotics. S/p tracheostomy/PEG, will kowalski cx prn DW staff Problems: Consultation Date/Type/Reason Admit Date/Time September 21, 2016 at 08:29 Initial Consult Date 09/21/16 Type of Consultation: ID Referring Provider: LAINEY AGARWAL Exam/Review of Systems Vital Signs Vitals Vital Signs Date Time Temp Pulse Resp B/P Pulse Ox O2 Delivery O2 Flow Rate FiO2 10/08/16 13:00 80 18 95/57 98 Mechanical Ventilator 10/08/16 12:00 98.4 10/08/16 08:00 30 Intake and Output 10/07/16 10/07/16 10/08/16 15:00 23:00 07:00 Intake Total 362.5 ml 590 ml 183 ml Output Total 380 ml 235 ml 280 ml Balance -17.5 ml 355 ml -97 ml Results Result Diagram: 10/07/16 0400 10/07/16 0400 Results 24 hrs Laboratory Tests Test 10/07/16 17:29 10/07/16 21:58 10/08/16 05:20 10/08/16 08:37 Bedside Glucose 88 135 124 114 Test 10/08/16 09:06 10/08/16 13:27 Hepatitis C Antibody NEGATIVE Bedside Glucose 110 Medications Medications Current Medications Ondansetron HCl (Zofran Inj) 4 mg Q6H PRN IV NAUSEA AND/OR VOMITING; Start at 09:00 Acetaminophen (Tylenol Supp) 650 mg Q4H PRN [place] PAIN LEVEL 1-3 OR FEVER Last administered on 09/23/16 08:38; Admin Dose 650 MG; Start 09/21/16 at 09:00 Morphine Sulfate (morphine) 2 mg Q4H PRN IV PAIN LEVEL 7-10; Start 09/21/16 at 09:00 Lorazepam (Ativan) 1 mg Q2H PRN IV Seizures; Start 09/21/16 at 09:30 Amiodarone HCl (Cordarone) 200 mg DAILY PO Last administered on 10/08/16 09:26 ; Admin Dose 200 MG; Start 09/22/16 at 09:00 Digoxin (Digoxin) 0.125 mg DAILY PO Last administered on 10/08/16 09:26; Admin Dose 0.125 MG; Start 09/22/16 at 09:00 Atorvastatin Calcium (Lipitor) 40 mg DAILY@21 PO Last administered on 10/07/16 21:53; Admin Dose 40 MG; Start 09/21/16 at 21:00 Miscellaneous Information 1 ea NOTE XX ; Start 09/21/16 at 10:00 Glucose (Glutose) 15 gm Q15M PRN PO DECREASED GLUCOSE; Start 09/21/16 at 10:00 Glucose (Glutose) 22.5 gm Q15M PRN PO DECREASED GLUCOSE; Start 09/21/16 at 10: 00 Dextrose (D50w Syringe) 25 ml Q15M PRN IV DECREASED GLUCOSE; Start 09/21/16 at 10:00 Dextrose (D50w Syringe) 50 ml Q15M PRN IV DECREASED GLUCOSE; Start 09/21/16 at 10:00 Glucagon (Glucagen) 1 mg Q15M PRN IM DECREASED GLUCOSE; Start 09/21/16 at 10:00 Glucose (Glutose) 15 gm Q15M PRN BUCCAL DECREASED GLUCOSE; Start 09/21/16 at 10 :00 Ferrous Sulfate (Feosol Liquid Cup) 300 mg BID NGT Last administered on 09:24; Admin Dose 300 MG; Start 09/22/16 at 10:00 Diagnostic Test (Pha) (Accu-Chek) 1 ea 02 XX Last administered on 10/05/16 01: 32; Admin Dose 1 EA; Start 09/28/16 at 02:00 Insulin Aspart (Novolog Insulin Pen) (Adult SC Insulin - Moder... Q4 SC Last administered on 10/06/16 20:39; Admin Dose 2 UNIT; Start 09/27/16 at 13:00 Desmopressin Acetate 2 mcg 2 mcg BID SC Last administered on 10/08/16 09:27; Admin Dose 2 MCG; Start 09/28/16 at 11:30 Sodium Chloride (1/2 NS) 1,000 ml @ 30 mls/hr Q24H IV Last administered on 10/08 09:24; Admin Dose 30 MLS/HR; Start 09/29/16 at 17:00 IV Flush (NS 10 ml) 10 ml PRN PRN IV FLUSH LINE; Start 09/30/16 at 17:00 Insulin Glargine (Lantus) 18 unit DAILY@20 SC Last administered on 10/06/16 20: 32; Admin Dose 18 UNIT; Start 10/03/16 at 20:00 Collagenase (Santyl) 1 applic DAILY TOP Last administered on 10/08/16 11:58; Admin Dose 1 APPLIC; Start 10/05/16 at 17:00 Collagenase (Santyl) 1 applic PRN PRN TOP WOUND CARE; Start 10/05/16 at 15:30 Losartan Potassium (Cozaar) 25 mg DAILY PO ; Start 10/07/16 at 09:00; Status Future Hold Metoprolol Tartrate (Lopressor) 25 mg BID NGT Last administered on 10/07/16 21: 54; Admin Dose 25 MG; Start 10/06/16 at 21:00 Levetiracetam (Keppra) 500 mg BID NGT Last administered on 10/08/16 09:25; Admin Dose 500 MG; Start 10/07/16 at 21:00 Pantoprazole (Protonix Tab) 40 mg DAILY@06 PO Last administered on 10/08/16 05: 42; Admin Dose 40 MG; Start 10/08/16 at 06:00 ANGELINA GAMEZ NP Oct 08, 2016 14:08
[2016-10-08 14:24] LABS: ADD UMIC YES; URINE BILIRUBIN (Dip) NEGATIVE (NEGATIVE); URINE BLOOD (Dip) TRACE (NEGATIVE); URINE COLOR YELLOW (YELLOW); URINE GLUCOSE (Dip) NEGATIVE (NEGATIVE); URINE KETONES (Dip) NEGATIVE (NEGATIVE); URINE LEUKOCYTE ESTERASE (Dip) 1+ (NEGATIVE); URINE NITRITE (Dip) NEGATIVE (NEGATIVE); URINE TOTAL PROTEIN (Dip) NEGATIVE (NEGATIVE); URINE UROBILINOGEN (Dip) 1.0 E.U./dL (0.1-1.0)
[2016-10-08 14:40] LABS: SQUAMOUS EPITHELIAL CELL,UR FEW; URINE RBCS 0-2 /HPF (0)
[2016-10-08 14:41] LABS: BACTERIA,URINE FEW
--- NOTE | 2016-10-08 15:08 | PN ---
Date/Time of Note Date/Time of Note DATE: 10/08/16 TIME: 15:08 Assessment/Plan Lines/Catheters IV Catheter Type (from Nrsg): PICC Line Macedo in Place (from Nrsg): Yes Assessment/Plan Chief Complaint/Hosp Course Resp Failure SP Tracheostomy will continue vent support and trach care Problems: Subjective 24 Hr Interval Summary Constitutional: improved Pain Control: mild Exam/Review of Systems Vital Signs Vitals Vital Signs Date Time Temp Pulse Resp B/P Pulse Ox O2 Delivery O2 Flow Rate FiO2 10/08/16 13:00 80 18 95/57 98 Mechanical Ventilator 10/08/16 12:00 98.4 10/08/16 08:00 30 Intake and Output 10/07/16 10/07/16 10/08/16 15:00 23:00 07:00 Intake Total 362.5 ml 590 ml 183 ml Output Total 380 ml 235 ml 280 ml Balance -17.5 ml 355 ml -97 ml Exam Neck: non-tender, supple Respiratory: clear to auscultation, normal air movement Cardiovascular: nl pulses, regular rate and rhythm Gastrointestinal: nl liver, spleen, non-tender, soft Results Result Diagram: 10/07/160 10/07/160 LULY ESPINAL MD Oct 08, 2016 15:08
[2016-10-08] MEDS: INSULIN GLARGINE [LANtus] 3 ML PEN SC SCH (20:00)
[2016-10-08] MEDS: ATORVASTATIN 40 MG TAB PO SCH (20:59)
--- NOTE | 2016-10-08 22:32 | QN ---
Documentation Comment [id number], s/p trach and PEG. CTH reviewed: shows expected evolution of right frontal IPH and SDH bilaterally. Neurologic prognosis remains poor. Cerebral angiogram pending. DICK JACOBO MD Oct 08, 2016 22:32
[2016-10-09] VITALS (38 sets, daily range): BP systolic 91–114; BP diastolic 51–69; PULSE 80; RESP 18–22
[2016-10-09] MEDS: Insulin NOVOLOG SS MODERATE Algorithm(NPO/TPN/ENTERAL FEEDS) SC SCH ×6 (01:00→21:54)
[2016-10-09] MEDS: ACCU-CHEK XX SCH (01:45)
[2016-10-09] MEDS: PANTOPRAZOLE (EC) 40 MG TAB PO SCH (05:52)
[2016-10-09 06:12] LABS: ADD SCAN DIFF NO
[2016-10-09 06:15] LABS: ABNORMAL IP MESSAGE 1; EOSINOPHILS % 0.4 % (0.0-7.0); HEMOGLOBIN 9.9 g/dl (12.0-16.0); LYMPHOCYTES # 0.6 10^3/ul (0.8-2.9); LYMPHOCYTES % 6.4 % (15.0-51.0); MEAN CORPUSCULAR VOLUME 93.5 fl (82.0-101.0); MONOCYTE # 0.6 10^3/ul (0.3-0.9); MONOCYTES % 6.4 % (0.0-11.0); NEUTROPHILS % 86.3 % (39.0-77.0); PLATELET COUNT 92 10^3/UL (140-415); RED BLOOD COUNT 3.53 10^6/ul (4.20-5.40); RED CELL DISTRIBUTION WIDTH 16.8 % (11.5-14.5); WHITE BLOOD COUNT 9.3 10^3/ul (4.8-10.8)
[2016-10-09 06:44] LABS: CALCIUM 7.7 mg/dl (8.4-10.2); CREATININE 1.51 mg/dl (0.44-1.00); POTASSIUM 3.6 mmol/L (3.5-5.1)
[2016-10-09 07:31] LABS: T3 UPTAKE 64.1 % (23.5-40.5)
[2016-10-09 07:44] LABS: THYROID STIMULATING HORMONE 3.14 MIU/L (0.465-4.680)
[2016-10-09] MEDS: FERROUS SULFATE 60 MG/ML 5ML CUP NGT SCH ×2 (08:27→21:49)
[2016-10-09] MEDS: DIGOXIN 0.125 MG TAB PO SCH (08:27)
[2016-10-09] MEDS: METOPROLOL 25 MG TAB NGT SCH ×2 (08:27→21:00)
[2016-10-09] MEDS: LEVOTHYROXINE 100 MCG TAB NGT SCH (08:28)
[2016-10-09] MEDS: LEVETIRACETAM 500 MG TAB NGT SCH ×2 (08:28→21:49)
[2016-10-09] MEDS: COLLAGENASE 30 GM TUBE TOP SCH (08:35)
[2016-10-09] MEDS: AMIODARONE 200 MG TAB PO SCH (09:24)
[2016-10-09] MEDS: DESMOPRESSIN 4 MCG INJ SC SCH (09:25)
--- NOTE | 2016-10-09 10:13 | CONS ---
Date/Time of Note Date/Time of Note DATE: 10/09/16 TIME: 10:11 Assessment/Plan Assessment/Plan Additional Assessment/Plan Ventilator setting; AC of 18, tidal volume 450, PEEP of 5, 30% FiO2. Assessment recommendations; 1. Patient admitted for massive intracranial hemorrhage leading to respiratory failure. 2. Status post tracheostomy and G-tube placement. 3. Thrombocytopenia. 4. History of hypertension. 5. Central diabetes insipidus. 6. Hypernatremia. Continue current treatment. Patient awaiting transfer to rehab facility. Prognosis is extremely poor Consultation Date/Type/Reason Admit Date/Time September 21, 2016 at 08:29 Initial Consult Date 09/21/16 Type of Consultation: Pulmonary/critical care Referring Provider: LAINEY AGARWAL 24 HR Interval Summary Free Text/Dictation Patient condition remains unchanged. Remains unresponsive. Has remained hemodynamically stable. No overt seizure activity noted. General exam; elderly lady, on ventilator via tracheostomy currently in no distress. Unresponsive. Exam/Review of Systems Vital Signs Vitals Vital Signs Date Time Temp Pulse Resp B/P Pulse Ox O2 Delivery O2 Flow Rate FiO2 10/09/16 08:20 80 18 113/58 97 Mechanical Ventilator 10/09/16 08:00 98.1 10/09/16 05:10 30 Intake and Output 10/08/16 10/08/16 10/09/16 15:00 23:00 07:00 Intake Total 765 ml 370 ml 210 ml Output Total 325 ml 290 ml 200 ml Balance 440 ml 80 ml 10 ml Exam HEENT exam; supple neck, no JVD. No lymphadenopathy. Midline trachea. No thyromegaly. Tracheostomy placed with clean insertion site. Chest examination; clear to auscultation. S1-S2 audible, no murmurs. Regular rhythm. Abdomen examination; soft, no organomegaly. G-tube in place. Bowel sounds audible. Extremity exam; no peripheral edema. LEAD SUSTAINABILITY SPECIALIST examination; patient remains unresponsive. Results Result Diagram: 10/09/16 0430 10/09/16 0550 Results 24 hrs Laboratory Tests Test 10/08/16 13:27 10/08/16 16:46 10/09/16 04:30 10/09/16 05:49 Bedside Glucose 110 104 99 White Blood Count 9.3 Red Blood Count 3.53 L Hemoglobin 9.9 L Hematocrit 33.0 L Mean Corpuscular Volume 93.5 Mean Corpuscular Hemoglobin 28.0 L Mean Corpuscular Hemoglobin Concent 30.0 L Red Cell Distribution Width 16.8 H Platelet Count 92 L Mean Platelet Volume Neutrophils % 86.3 H Lymphocytes % 6.4 L Monocytes % 6.4 Eosinophils % 0.4 Basophils % 0.0 Nucleated Red Blood Cells % 0.0 Neutrophils # 8.0 H Lymphocytes # 0.6 L Monocytes # 0.6 Eosinophils # 0.0 Basophils # 0.0 Nucleated Red Blood Cells # 0.0 Thyroid Stimulating Hormone (TSH) 3.140 Free Thyroxine Index 4.49 H Thyroxine (T4) 7.0 Triiodothyronine (T3) Uptake 64.1 H Test 10/09/16 05:50 10/09/16 08:23 Sodium Level 152 H Potassium Level 3.6 Chloride Level 117 H Carbon Dioxide Level 27 Anion Gap 12 Blood Urea Nitrogen 110 H Creatinine 1.51 H Glucose Level 97 Calcium Level 7.7 L Bedside Glucose 123 Medications Medications Current Medications Ondansetron HCl (Zofran Inj) 4 mg Q6H PRN IV NAUSEA AND/OR VOMITING; Start at 09:00 Acetaminophen (Tylenol Supp) 650 mg Q4H PRN [place] PAIN LEVEL 1-3 OR FEVER Last administered on 09/23/16 08:38; Admin Dose 650 MG; Start 09/21/16 at 09:00 Morphine Sulfate (morphine) 2 mg Q4H PRN IV PAIN LEVEL 7-10; Start 09/21/16 at 09:00 Lorazepam (Ativan) 1 mg Q2H PRN IV Seizures; Start 09/21/16 at 09:30 Amiodarone HCl (Cordarone) 200 mg DAILY PO Last administered on 10/09/16 09:24 ; Admin Dose 200 MG; Start 09/22/16 at 09:00 Digoxin (Digoxin) 0.125 mg DAILY PO Last administered on 10/09/16 08:27; Admin Dose 0.125 MG; Start 09/22/16 at 09:00 Atorvastatin Calcium (Lipitor) 40 mg DAILY@21 PO Last administered on 10/08/16 20:59; Admin Dose 40 MG; Start 09/21/16 at 21:00 Miscellaneous Information 1 ea NOTE XX ; Start 09/21/16 at 10:00 Glucose (Glutose) 15 gm Q15M PRN PO DECREASED GLUCOSE; Start 09/21/16 at 10:00 Glucose (Glutose) 22.5 gm Q15M PRN PO DECREASED GLUCOSE; Start 09/21/16 at 10: 00 Dextrose (D50w Syringe) 25 ml Q15M PRN IV DECREASED GLUCOSE; Start 09/21/16 at 10:00 Dextrose (D50w Syringe) 50 ml Q15M PRN IV DECREASED GLUCOSE; Start 09/21/16 at 10:00 Glucagon (Glucagen) 1 mg Q15M PRN IM DECREASED GLUCOSE; Start 09/21/16 at 10:00 Glucose (Glutose) 15 gm Q15M PRN BUCCAL DECREASED GLUCOSE; Start 09/21/16 at 10 :00 Ferrous Sulfate (Feosol Liquid Cup) 300 mg BID NGT Last administered on 08:27; Admin Dose 300 MG; Start 09/22/16 at 10:00 Diagnostic Test (Pha) (Accu-Chek) 1 ea 02 XX Last administered on 10/09/16 01: 45; Admin Dose 1 EA; Start 09/28/16 at 02:00 Insulin Aspart (Novolog Insulin Pen) (Adult SC Insulin - Moder... Q4 SC Last administered on 10/06/16 20:39; Admin Dose 2 UNIT; Start 09/27/16 at 13:00 Desmopressin Acetate 2 mcg 2 mcg BID SC Last administered on 10/09/16 09:25; Admin Dose 2 MCG; Start 09/28/16 at 11:30 Sodium Chloride (1/2 NS) 1,000 ml @ 125 mls/hr Q8H IV Last administered on 10/08 09:24; Admin Dose 30 MLS/HR; Start 09/29/16 at 17:00 IV Flush (NS 10 ml) 10 ml PRN PRN IV FLUSH LINE; Start 09/30/16 at 17:00 Insulin Glargine (Lantus) 18 unit DAILY@20 SC Last administered on 10/06/16 20: 32; Admin Dose 18 UNIT; Start 10/03/16 at 20:00 Collagenase (Santyl) 1 applic DAILY TOP Last administered on 10/09/16 08:35; Admin Dose 1 APPLIC; Start 10/05/16 at 17:00 Collagenase (Santyl) 1 applic PRN PRN TOP WOUND CARE; Start 10/05/16 at 15:30 Losartan Potassium (Cozaar) 25 mg DAILY PO ; Start 10/07/16 at 09:00; Status Future Hold Metoprolol Tartrate (Lopressor) 25 mg BID NGT Last administered on 10/09/16 08: 27; Admin Dose 25 MG; Start 10/06/16 at 21:00 Levetiracetam (Keppra) 500 mg BID NGT Last administered on 10/09/16 08:28; Admin Dose 500 MG; Start 10/07/16 at 21:00 Pantoprazole (Protonix Tab) 40 mg DAILY@06 PO Last administered on 10/09/16 05: 52; Admin Dose 40 MG; Start 10/08/16 at 06:00 Sodium Chloride (1/2 NS) 1,000 ml ONCE ONCE IV* ; Start 10/09/16 at 10:30; Stop 10/09/16 at 10:31; Status JAY KENT Oct 09, 2016 10:13
[2016-10-09] MEDS ORDERED: SODIUM CHLORIDE 0.45% 500 ML BAG IV* ONE (10:30)
[2016-10-09] MEDS ORDERED: IODIXANOL LOCM 100 ML BTL ONE (11:16)
[2016-10-09] MEDS ORDERED: SOD CHLORIDE 0.9% 100 ML ONE (11:16)
--- NOTE | 2016-10-09 11:55 | CONS ---
Date/Time of Note Date/Time of Note DATE: 10/09/16 TIME: 11:46 Assessment/Plan Assessment/Plan Chief Complaint/Hosp Course IMPRESSION: 1. Congestive heart failure exacerbation, systolic, acute on chronic, by recent echocardiogram in 07/2016 revealing ejection fraction of 25%. 2. Cardiomyopathy with decreased left ventricular ejection fraction, last ejection fraction approximately 25% by echocardiogram 07/2016. 3. History of automatic implantable cardioverter-defibrillator. 4. History of paroxysmal atrial fibrillation, previously on systemic anticoagulation. 5. Subdural hematomas with midline shift and vasogenic edema- worsening abnl on serial Head CT's 6. Encephalopathy. 7. Hypertension-labile and at times normal 8. Anemia. 9. Thrombocytopenia 10.Hypernatremia 11.Bacteremia Recc: -Tele -For trach today -Follow MS closly -Continue BB as tolerated -losartan held and f/u bp closely -Continue amio/digoxin -Follow volume status closely with change in IVF and sodium closely -NRSG following -Palliative care following Problems: Consultation Date/Type/Reason Admit Date/Time September 21, 2016 at 08:29 Initial Consult Date 09/21/16 Type of Consultation: Cardiology Reason for Consultation cardiomyopathy Referring Provider: LAINEY AGARWAL Exam/Review of Systems Vital Signs Vitals Vital Signs Date Time Temp Pulse Resp B/P Pulse Ox O2 Delivery O2 Flow Rate FiO2 10/09/16 08:20 80 18 113/58 97 Mechanical Ventilator 10/09/16 08:00 98.1 10/09/16 05:10 30 Intake and Output 10/08/16 10/08/16 10/09/16 15:00 23:00 07:00 Intake Total 765 ml 370 ml 260 ml Output Total 325 ml 290 ml 230 ml Balance 440 ml 80 ml 30 ml Exam Review of Systems: CONSTITUTIONAL: No fevers, chills. PULMONARY: trached CARDIOVASCULAR: No obvious chest pain/palpitations GASTROINTESTINAL: No nausea/vomiting. GENITOURINARY: s/p G tube MUSCULOSKELETAL: No obvious myagias/arthalgias. PSYCHIATRIC: The patient denies depression. NEUROLOGIC: No weakness Constitutional: other (encephalopathic) Head: normocephalic Neck: other (trach in place) Respiratory: other (upper airway rhoncherous sounds) Cardiovascular: regular rate and rhythm Gastrointestinal: non-tender, soft Musculoskeletal: muscle tone (normal) Extremities: edema (none) Neurological: other (no focal deficits) Results Result Diagram: 10/09/16 0430 10/09/16 0550 Results 24 hrs Laboratory Tests Test 10/08/16 13:27 10/08/16 16:46 10/09/16 04:30 10/09/16 05:49 Bedside Glucose 110 104 99 White Blood Count 9.3 Red Blood Count 3.53 L Hemoglobin 9.9 L Hematocrit 33.0 L Mean Corpuscular Volume 93.5 Mean Corpuscular Hemoglobin 28.0 L Mean Corpuscular Hemoglobin Concent 30.0 L Red Cell Distribution Width 16.8 H Platelet Count 92 L Mean Platelet Volume Neutrophils % 86.3 H Lymphocytes % 6.4 L Monocytes % 6.4 Eosinophils % 0.4 Basophils % 0.0 Nucleated Red Blood Cells % 0.0 Neutrophils # 8.0 H Lymphocytes # 0.6 L Monocytes # 0.6 Eosinophils # 0.0 Basophils # 0.0 Nucleated Red Blood Cells # 0.0 Thyroid Stimulating Hormone (TSH) 3.140 Free Thyroxine Index 4.49 H Thyroxine (T4) 7.0 Triiodothyronine (T3) Uptake 64.1 H Test 10/09/16 05:50 10/09/16 08:23 Sodium Level 152 H Potassium Level 3.6 Chloride Level 117 H Carbon Dioxide Level 27 Anion Gap 12 Blood Urea Nitrogen 110 H Creatinine 1.51 H Glucose Level 97 Calcium Level 7.7 L Bedside Glucose 123 Medications Medications Current Medications Ondansetron HCl (Zofran Inj) 4 mg Q6H PRN IV NAUSEA AND/OR VOMITING; Start at 09:00 Acetaminophen (Tylenol Supp) 650 mg Q4H PRN [place] PAIN LEVEL 1-3 OR FEVER Last administered on 09/23/16 08:38; Admin Dose 650 MG; Start 09/21/16 at 09:00 Morphine Sulfate (morphine) 2 mg Q4H PRN IV PAIN LEVEL 7-10; Start 09/21/16 at 09:00 Lorazepam (Ativan) 1 mg Q2H PRN IV Seizures; Start 09/21/16 at 09:30 Amiodarone HCl (Cordarone) 200 mg DAILY PO Last administered on 10/09/16 09:24 ; Admin Dose 200 MG; Start 09/22/16 at 09:00 Digoxin (Digoxin) 0.125 mg DAILY PO Last administered on 10/09/16 08:27; Admin Dose 0.125 MG; Start 09/22/16 at 09:00 Atorvastatin Calcium (Lipitor) 40 mg DAILY@21 PO Last administered on 10/08/16 20:59; Admin Dose 40 MG; Start 09/21/16 at 21:00 Miscellaneous Information 1 ea NOTE XX ; Start 09/21/16 at 10:00 Glucose (Glutose) 15 gm Q15M PRN PO DECREASED GLUCOSE; Start 09/21/16 at 10:00 Glucose (Glutose) 22.5 gm Q15M PRN PO DECREASED GLUCOSE; Start 09/21/16 at 10: 00 Dextrose (D50w Syringe) 25 ml Q15M PRN IV DECREASED GLUCOSE; Start 09/21/16 at 10:00 Dextrose (D50w Syringe) 50 ml Q15M PRN IV DECREASED GLUCOSE; Start 09/21/16 at 10:00 Glucagon (Glucagen) 1 mg Q15M PRN IM DECREASED GLUCOSE; Start 09/21/16 at 10:00 Glucose (Glutose) 15 gm Q15M PRN BUCCAL DECREASED GLUCOSE; Start 09/21/16 at 10 :00 Ferrous Sulfate (Feosol Liquid Cup) 300 mg BID NGT Last administered on 08:27; Admin Dose 300 MG; Start 09/22/16 at 10:00 Diagnostic Test (Pha) (Accu-Chek) 1 ea 02 XX Last administered on 10/09/16 01: 45; Admin Dose 1 EA; Start 09/28/16 at 02:00 Insulin Aspart (Novolog Insulin Pen) (Adult SC Insulin - Moder... Q4 SC Last administered on 10/06/16 20:39; Admin Dose 2 UNIT; Start 09/27/16 at 13:00 Desmopressin Acetate 2 mcg 2 mcg BID SC Last administered on 10/09/16 09:25; Admin Dose 2 MCG; Start 09/28/16 at 11:30 Sodium Chloride (1/2 NS) 1,000 ml @ 125 mls/hr Q8H IV Last administered on 10/08 09:24; Admin Dose 30 MLS/HR; Start 09/29/16 at 17:00 IV Flush (NS 10 ml) 10 ml PRN PRN IV FLUSH LINE; Start 09/30/16 at 17:00 Insulin Glargine (Lantus) 18 unit DAILY@20 SC Last administered on 10/06/16 20: 32; Admin Dose 18 UNIT; Start 10/03/16 at 20:00 Collagenase (Santyl) 1 applic DAILY TOP Last administered on 10/09/16 08:35; Admin Dose 1 APPLIC; Start 10/05/16 at 17:00 Collagenase (Santyl) 1 applic PRN PRN TOP WOUND CARE; Start 10/05/16 at 15:30 Losartan Potassium (Cozaar) 25 mg DAILY PO ; Start 10/07/16 at 09:00; Status Future Hold Metoprolol Tartrate (Lopressor) 25 mg BID NGT Last administered on 10/09/16 08: 27; Admin Dose 25 MG; Start 10/06/16 at 21:00 Levetiracetam (Keppra) 500 mg BID NGT Last administered on 10/09/16 08:28; Admin Dose 500 MG; Start 10/07/16 at 21:00 Pantoprazole (Protonix Tab) 40 mg DAILY@06 PO Last administered on 10/09/16 05: 52; Admin Dose 40 MG; Start 10/08/16 at 06:00 MATHEW AMADO Oct 09, 2016 11:55
--- NOTE | 2016-10-09 14:39 | PN ---
Date/Time of Note Date/Time of Note DATE: 10/09/16 TIME: 14:39 Assessment/Plan Lines/Catheters IV Catheter Type (from Nrsg): PICC Line Maced[place] in Place (from Nrsg): Yes Assessment/Plan Chief Complaint/Hosp Course Resp Failure SP Tracheostomy will continue vent support and trach care Problems: Subjective 24 Hr Interval Summary Constitutional: improved Pain Control: mild Exam/Review of Systems Vital Signs Vitals Vital Signs Date Time Temp Pulse Resp B/P Pulse Ox O2 Delivery O2 Flow Rate FiO2 10/09/16 12:00 80 10/09/16 11:35 20 96 30 10/09/16 08:20 113/58 Mechanical Ventilator 10/09/16 08:00 98.1 Intake and Output 10/08/16 10/08/16 10/09/16 15:00 23:00 07:00 Intake Total 765 ml 370 ml 260 ml Output Total 325 ml 290 ml 230 ml Balance 440 ml 80 ml 30 ml Exam ENMT: mucosa pink and moist, nl external ears & nose, nl lips & teeth, nl nasal mucosa & septum Neck: non-tender, supple Respiratory: clear to auscultation, normal air movement Cardiovascular: nl pulses, regular rate and rhythm Gastrointestinal: nl liver, spleen, non-tender, soft Results Result Diagram: 10/09/16 0430 10/09/16 0550 LULY ESPINAL MD Oct 09, 2016 14:39
[2016-10-09] MEDS: SOD CHLORIDE 0.45% 1,000 ML IV SCH (14:49)
--- NOTE | 2016-10-09 15:48 | RADRPT ---
PROCEDURE: CTA BRAIN WITH CONTRAST CLINICAL INDICATION: Hemorrhage, neurologic deficit COMPARISON: Correlation head CT 10/05/2016 TECHNIQUE: Helical axial images were obtained through the head with contrast. Coronal and sagittal MIP images w ere obtained through the brain. Additional 3D volumetric renderings were created. 100 cc of Isovue 370 was administered intravenously without reported complication. DOSE: CTDI = 42 mGy and the DLP = 720 mGy-cm. FINDINGS: Similar appearance of the bilateral cerebral convexity subdural hematomas with large right frontal p arenchymal hemorrhage causing 4 mm leftward midline shift of the bilateral JASEN vessels. No evidence of JASEN vessel occlusion. No evidence of a significant stenosis of the bilateral ICA, MCA, or SOFTWARE [employer]EL[employer] ves sels. The bilateral vertebral and basilar arteries are without significant stenosis or occlusion. No aneurysms are identified. ACOM seen. IMPRESSION: No evidence of a large vessel occlusion or intracranial aneurysm. Similar appearance of the bilateral cerebral convexity subdural hematomas with large right frontal p arenchymal hemorrhage causing 4 mm leftward midline shift of the bilateral JASEN vessels. RPTAT: AA .Amilcar Guerrero MD, MD Date Time Electronically viewed and signed by .Amilcar Guerrero MD, on 10/09/2016 15:48 .T/
--- NOTE | 2016-10-09 16:18 | PN ---
Date/Time of Note Date/Time of Note DATE: 10/09/16 TIME: 16:13 Assessment/Plan VTE Prophylaxis VTE Prophylaxis Intervention: SCD's Assessment/Plan Chief Complaint/Hosp Course 1. Intracranial bleeding including intraparenchymal hematoma and bilateral subdural hematomas with midline shift-patient has poor mentation and is not alert and nonverbal 2. Ventilator dependent respiratory failure secondary to encephalopathy from #1 s/p Trach and PEG 3. Atrial fibrillation, rate controlled,, on amiodarone and digoxin. 4. Cardiomyopathy with ejection fraction of 30% with stage III and stage IV diastolic dysfunction: status post AICD 5. Hypernatremia likely 2/2 #1 : Per Neurosurgery, Correction of hypernatremia would be expected to cause increase in brain edema and thus ICP 6. Pulmonary congestion with probable underlying bilateral pneumonia 7. Type 2 diabetes mellitus. Continue Lantus and SSI. 8. Normocytic anemia. The patient has a history of iron deficiency. Continue iron supplements. 9. Sepsis with Strep group B bacteremia 10. Thrombocytopenia 11. Chronic renal insufficiency 12. Accelerated hypertension: BP now controlled 13. Hyperlipidemia. Continue statins. 14. Hypothyroidism with a chronic multinodular goiter . on synthroid, Last TSH check showed good control Plan: * Continue ICU supportive care for now * Creatinine trending up, hold losartan * Continue ventilator management and weaning/appreciate pulmonary input * Continue Lantus dosing for optimal blood sugar control * Patient continues on tube feeds and seems to be tolerating them. * Continue antibiotics as per infectious diseases. * Continue Keppra for seizure prophylaxis * Overall prognosis is poor, catheter angiogram is required to adequately define prognosis /follow-up further recommendations * Patient will need SNF/LTAC placement DVT prophylaxis. Bilateral sequential compression devices. Gastrointestinal prophylaxis. Proton pump inhibitors. Problems: Subjective 24 Hr Interval Summary Subjective hx not possible: pt non-verbal Exam/Review of Systems Vital Signs Vitals Vital Signs Date Time Temp Pulse Resp B/P Pulse Ox O2 Delivery O2 Flow Rate FiO2 10/09/16 14:00 80 18 94/57 97 Mechanical Ventilator 10/09/16 12:00 98.8 10/09/16 11:35 30 Intake and Output 10/08/16 10/08/16 10/09/16 15:00 23:00 07:00 Intake Total 765 ml 370 ml 290 ml Output Total 325 ml 290 ml 230 ml Balance 440 ml 80 ml 60 ml Exam Constitutional: non-verbal, No alert Respiratory: clear to auscultation Cardiovascular: regular rate and rhythm Gastrointestinal: soft, No distended Musculoskeletal: nl extremities to inspection Results Result Diagram: 10/09/16 0430 10/09/16 0550 Results 24 hrs Laboratory Tests Test 10/08/16 16:46 10/09/16 04:30 10/09/16 05:49 10/09/16 05:50 Bedside Glucose 104 99 White Blood Count 9.3 Red Blood Count 3.53 L Hemoglobin 9.9 L Hematocrit 33.0 L Mean Corpuscular Volume 93.5 Mean Corpuscular Hemoglobin 28.0 L Mean Corpuscular Hemoglobin Concent 30.0 L Red Cell Distribution Width 16.8 H Platelet Count 92 L Mean Platelet Volume Neutrophils % 86.3 H Lymphocytes % 6.4 L Monocytes % 6.4 Eosinophils % 0.4 Basophils % 0.0 Nucleated Red Blood Cells % 0.0 Neutrophils # 8.0 H Lymphocytes # 0.6 L Monocytes # 0.6 Eosinophils # 0.0 Basophils # 0.0 Nucleated Red Blood Cells # 0.0 Thyroid Stimulating Hormone (TSH) 3.140 Free Thyroxine Index 4.49 H Thyroxine (T4) 7.0 Triiodothyronine (T3) Uptake 64.1 H Sodium Level 152 H Potassium Level 3.6 Chloride Level 117 H Carbon Dioxide Level 27 Anion Gap 12 Blood Urea Nitrogen 110 H Creatinine 1.51 H Glucose Level 97 Calcium Level 7.7 L Test 10/09/16 08:23 10/09/16 13:49 Bedside Glucose 123 162 Medications Medications Current Medications Ondansetron HCl (Zofran Inj) 4 mg Q6H PRN IV NAUSEA AND/OR VOMITING; Start at 09:00 Acetaminophen (Tylenol Supp) 650 mg Q4H PRN [place] PAIN LEVEL 1-3 OR FEVER Last administered on 09/23/16 08:38; Admin Dose 650 MG; Start 09/21/16 at 09:00 Morphine Sulfate (morphine) 2 mg Q4H PRN IV PAIN LEVEL 7-10; Start 09/21/16 at 09:00 Lorazepam (Ativan) 1 mg Q2H PRN IV Seizures; Start 09/21/16 at 09:30 Amiodarone HCl (Cordarone) 200 mg DAILY PO Last administered on 10/09/16 09:24 ; Admin Dose 200 MG; Start 09/22/16 at 09:00 Digoxin (Digoxin) 0.125 mg DAILY PO Last administered on 10/09/16 08:27; Admin Dose 0.125 MG; Start 09/22/16 at 09:00 Atorvastatin Calcium (Lipitor) 40 mg DAILY@21 PO Last administered on 10/08/16 20:59; Admin Dose 40 MG; Start 09/21/16 at 21:00 Miscellaneous Information 1 ea NOTE XX ; Start 09/21/16 at 10:00 Glucose (Glutose) 15 gm Q15M PRN PO DECREASED GLUCOSE; Start 09/21/16 at 10:00 Glucose (Glutose) 22.5 gm Q15M PRN PO DECREASED GLUCOSE; Start 09/21/16 at 10: 00 Dextrose (D50w Syringe) 25 ml Q15M PRN IV DECREASED GLUCOSE; Start 09/21/16 at 10:00 Dextrose (D50w Syringe) 50 ml Q15M PRN IV DECREASED GLUCOSE; Start 09/21/16 at 10:00 Glucagon (Glucagen) 1 mg Q15M PRN IM DECREASED GLUCOSE; Start 09/21/16 at 10:00 Glucose (Glutose) 15 gm Q15M PRN BUCCAL DECREASED GLUCOSE; Start 09/21/16 at 10 :00 Ferrous Sulfate (Feosol Liquid Cup) 300 mg BID NGT Last administered on 08:27; Admin Dose 300 MG; Start 09/22/16 at 10:00 Diagnostic Test (Pha) (Accu-Chek) 1 ea 02 XX Last administered on 10/09/16 01: 45; Admin Dose 1 EA; Start 09/28/16 at 02:00 Insulin Aspart (Novolog Insulin Pen) (Adult SC Insulin - Moder... Q4 SC Last administered on 10/09/16 13:52; Admin Dose 2 UNIT; Start 09/27/16 at 13:00 Desmopressin Acetate 2 mcg 2 mcg BID SC Last administered on 10/09/16 09:25; Admin Dose 2 MCG; Start 09/28/16 at 11:30 Sodium Chloride (1/2 NS) 1,000 ml @ 125 mls/hr Q8H IV Last administered on 10/09 14:49; Admin Dose 125 MLS/HR; Start 09/29/16 at 17:00 IV Flush (NS 10 ml) 10 ml PRN PRN IV FLUSH LINE; Start 09/30/16 at 17:00 Insulin Glargine (Lantus) 18 unit DAILY@20 SC Last administered on 10/06/16 20: 32; Admin Dose 18 UNIT; Start 10/03/16 at 20:00 Collagenase (Santyl) 1 applic DAILY TOP Last administered on 10/09/16 08:35; Admin Dose 1 APPLIC; Start 10/05/16 at 17:00 Collagenase (Santyl) 1 applic PRN PRN TOP WOUND CARE Last administered on 13:20; Admin Dose 1 APPLIC; Start 10/05/16 at 15:30 Losartan Potassium (Cozaar) 25 mg DAILY PO ; Start 10/07/16 at 09:00; Status Future Hold Metoprolol Tartrate (Lopressor) 25 mg BID NGT Last administered on 10/09/16 08: 27; Admin Dose 25 MG; Start 10/06/16 at 21:00 Levetiracetam (Keppra) 500 mg BID NGT Last administered on 10/09/16 08:28; Admin Dose 500 MG; Start 10/07/16 at 21:00 Pantoprazole (Protonix Tab) 40 mg DAILY@06 PO Last administered on 10/09/16 05: 52; Admin Dose 40 MG; Start 10/08/16 at 06:00 ITMA ESPOSITO Oct 09, 2016 16:17
[2016-10-09] MEDS: ATORVASTATIN 40 MG TAB PO SCH (21:49)
[2016-10-09] MEDS: INSULIN GLARGINE [LANtus] 3 ML PEN SC SCH (21:57)
[2016-10-10] VITALS (35 sets, daily range): BP systolic 90–120; BP diastolic 50–68; PULSE 80; RESP 17–33
[2016-10-10] MEDS: ACCU-CHEK XX SCH (02:00)
[2016-10-10] MEDS: Insulin NOVOLOG SS MODERATE Algorithm(NPO/TPN/ENTERAL FEEDS) SC SCH ×6 (02:51→20:38)
[2016-10-10 05:20] LABS: CALCIUM 7.3 mg/dl (8.4-10.2); CREATININE 1.52 mg/dl (0.44-1.00); POTASSIUM 3.8 mmol/L (3.5-5.1)
[2016-10-10] MEDS: PANTOPRAZOLE (EC) 40 MG TAB PO SCH (05:22)
[2016-10-10] MEDS: SOD CHLORIDE 0.45% 1,000 ML IV SCH ×4 (06:01→20:40)
--- NOTE | 2016-10-10 08:57 | CONS ---
Date/Time of Note Date/Time of Note DATE: 10/10/16 TIME: 08:49 Assessment/Plan Assessment/Plan Problems: (1) Cerebral hemorrhage Status: Acute Comment: She underwent trach/g-tube as per family decision. Motor exam not as good as she is currently not withdrawing/localizing on the left. Given neurologic status I would not consider operative intervention at this time both because still unknown whether there is underlying vascular abnormality and because IMO very little if any change that mass effect currently the cause of neurologic status and she would not be expected to improve. At this time, without catheter angiogram, I cannot clear her to resume any anticoagulation or antiplatelet agent. Having said that she is a bit coagulopathic and given overall status unlikely to be proposed to start anything now. I will not push for this test unless there is proposal to treat more aggressively or if there is neurological improvement. Consultation Date/Type/Reason Admit Date/Time September 21, 2016 at 08:29 Initial Consult Date 09/21/16 Type of Consultation: Cardiology Referring Provider: LAINEY AGARWAL 24 HR Interval Summary Free Text/Dictation Patient underwent trach/G-tube. Still on ventilator. Subjective hx not possible: pt non-verbal, pt critical Exam/Review of Systems Vital Signs Vitals Vital Signs Date Time Temp Pulse Resp B/P Pulse Ox O2 Delivery O2 Flow Rate FiO2 10/10/16 07:46 80 19 97 30 10/10/16 06:00 113/58 10/10/16 05:00 Mechanical Ventilator 10/10/16 04:00 98.7 Intake and Output 10/09/16 10/09/16 10/10/16 15:00 23:00 07:00 Intake Total 2090 ml 1500 ml 1200 ml Output Total 195 ml 285 ml 220 ml Balance 1895 ml 1215 ml 980 ml Exam Constitutional: non-verbal Eyes: PERRL ENMT: intubated Neurological: other (pupils reactive to light bilaterally; corneals present bilaterally, cough present; no motor response to deep stim bilaterally, although she does grimace; no eye opening) Results I reviewed CT 10/05 and CTA 10/09; expected evolution of bilateral SDH and ICH. SDHs about the same size. basal cisterns more open. No obvious vascular anomaly on CTA. Result Diagram: 10/09/16 0430 10/10/16 0345 Results 24 hrs Laboratory Tests Test 10/09/16 13:49 10/09/16 17:55 10/09/16 21:51 10/10/16 02:48 Bedside Glucose 162 181 198 198 Test 10/10/16 03:45 10/10/16 05:25 Sodium Level 145 H Potassium Level 3.8 Chloride Level 113 H Carbon Dioxide Level 25 Anion Gap 11 Blood Urea Nitrogen 114 H Creatinine 1.52 H Glucose Level 155 Calcium Level 7.3 L Bedside Glucose 168 Medications Medications Current Medications Ondansetron HCl (Zofran Inj) 4 mg Q6H PRN IV NAUSEA AND/OR VOMITING; Start at 09:00 Acetaminophen (Tylenol Supp) 650 mg Q4H PRN [place] PAIN LEVEL 1-3 OR FEVER Last administered on 09/23/16 08:38; Admin Dose 650 MG; Start 09/21/16 at 09:00 Morphine Sulfate (morphine) 2 mg Q4H PRN IV PAIN LEVEL 7-10; Start 09/21/16 at 09:00 Lorazepam (Ativan) 1 mg Q2H PRN IV Seizures; Start 09/21/16 at 09:30 Amiodarone HCl (Cordarone) 200 mg DAILY PO Last administered on 10/09/16 09:24 ; Admin Dose 200 MG; Start 09/22/16 at 09:00 Digoxin (Digoxin) 0.125 mg DAILY PO Last administered on 10/09/16 08:27; Admin Dose 0.125 MG; Start 09/22/16 at 09:00 Atorvastatin Calcium (Lipitor) 40 mg DAILY@21 PO Last administered on 10/09/16 21:49; Admin Dose 40 MG; Start 09/21/16 at 21:00 Miscellaneous Information 1 ea NOTE XX ; Start 09/21/16 at 10:00 Glucose (Glutose) 15 gm Q15M PRN PO DECREASED GLUCOSE; Start 09/21/16 at 10:00 Glucose (Glutose) 22.5 gm Q15M PRN PO DECREASED GLUCOSE; Start 09/21/16 at 10: 00 Dextrose (D50w Syringe) 25 ml Q15M PRN IV DECREASED GLUCOSE; Start 09/21/16 at 10:00 Dextrose (D50w Syringe) 50 ml Q15M PRN IV DECREASED GLUCOSE; Start 09/21/16 at 10:00 Glucagon (Glucagen) 1 mg Q15M PRN IM DECREASED GLUCOSE; Start 09/21/16 at 10:00 Glucose (Glutose) 15 gm Q15M PRN BUCCAL DECREASED GLUCOSE; Start 09/21/16 at 10 :00 Ferrous Sulfate (Feosol Liquid Cup) 300 mg BID NGT Last administered on 21:49; Admin Dose 300 MG; Start 09/22/16 at 10:00 Diagnostic Test (Pha) (Accu-Chek) 1 ea 02 XX Last administered on 10/09/16 01: 45; Admin Dose 1 EA; Start 09/28/16 at 02:00 Insulin Aspart (Adult SC Insulin - Moder... Q4 SC Last administered on 05:30; Admin Dose 2 UNIT; Start 09/27/16 at 13:00 Sodium Chloride (1/2 NS) 1,000 ml @ 125 mls/hr Q8H IV Last administered on 10/10 06:01; Admin Dose 125 MLS/HR; Start 09/29/16 at 17:00 IV Flush (NS 10 ml) 10 ml PRN PRN IV FLUSH LINE; Start 09/30/16 at 17:00 Insulin Glargine (Lantus) 18 unit DAILY@20 SC Last administered on 10/09/16 21: 57; Admin Dose 18 UNIT; Start 10/03/16 at 20:00 Collagenase (Santyl) 1 applic DAILY TOP Last administered on 10/09/16 08:35; Admin Dose 1 APPLIC; Start 10/05/16 at 17:00 Collagenase (Santyl) 1 applic PRN PRN TOP WOUND CARE Last administered on 13:20; Admin Dose 1 APPLIC; Start 10/05/16 at 15:30 Losartan Potassium (Cozaar) 25 mg DAILY PO ; Start 10/07/16 at 09:00; Status Future Hold Metoprolol Tartrate (Lopressor) 25 mg BID NGT Last administered on 10/09/16 08: 27; Admin Dose 25 MG; Start 10/06/16 at 21:00 Levetiracetam (Keppra) 500 mg BID NGT Last administered on 10/09/16 21:49; Admin Dose 500 MG; Start 10/07/16 at 21:00 Pantoprazole (Protonix Tab) 40 mg DAILY@06 PO Last administered on 10/10/16t 05: 22; Admin Dose 40 MG; Start 10/08/16 at 06:00 MAGALY DUNLAP MD Oct 10, 2016 08:57
[2016-10-10] MEDS: FERROUS SULFATE 60 MG/ML 5ML CUP NGT SCH ×2 (09:12→20:38)
[2016-10-10] MEDS: LEVETIRACETAM 500 MG TAB NGT SCH ×2 (09:13→20:38)
[2016-10-10] MEDS: AMIODARONE 200 MG TAB PO SCH (09:13)
[2016-10-10] MEDS: METOPROLOL 25 MG TAB NGT SCH ×2 (09:13→20:38)
[2016-10-10] MEDS: DIGOXIN 0.125 MG TAB PO SCH (09:14)
[2016-10-10] MEDS: LEVOTHYROXINE 100 MCG TAB NGT SCH (09:14)
--- NOTE | 2016-10-10 10:19 | CONS ---
Date/Time of Note Date/Time of Note DATE: 10/10/16 TIME: :17 Assessment/Plan Assessment/Plan Additional Assessment/Plan 1. Congestive heart failure exacerbation, systolic, acute on chronic, by recent echocardiogram in 07/2016 revealing ejection fraction of 25%- euvolemic by exam, will follow - stable AWAITING DISPO PER FAMILY 2. Cardiomyopathy with decreased left ventricular ejection fraction, last ejection fraction approximately 25% by echocardiogram 07/2016. 3. History of automatic implantable cardioverter-defibrillator- no evidence of malfxn- unchanged. NO MALFXN noted. 4. History of paroxysmal atrial fibrillation, previously on systemic anticoagulation. 5. Subdural hematomas with midline shift and vasogenic edema- no sig change by serial CT done this AM- neuro follows, no intervention planned. 6. Encephalopathy- unchanged- no surgical intervention planned 7. Hypertension- well Rx, con't to follow. 8. Anemia. 9. Thrombocytopenia 10.Hypernatremia 11.Bacteremia - on anti-bx. Consultation Date/Type/Reason Admit Date/Time September 21, 2016 at 08:29 Initial Consult Date 09/21/16 Type of Consultation: Cardiology Referring Provider: LAINEY AGARWAL 24 HR Interval Summary Free Text/Dictation NO acute events - con't supportive care ROS: No fever, no chills, no nausea, no vomiting, no diarrhea/constipation No recent weight changes No chest pain, no PND, no orthopnea No dizziness, blurred vision No thirst, no heat or cold intolerance (per nurse) Exam/Review of Systems Vital Signs Vitals Vital Signs Date Time Temp Pulse Resp B/P Pulse Ox O2 Delivery O2 Flow Rate FiO2 10/10/16 07:46 80 19 97 30 10/10/16 06:00 113/58 10/10/16 05:00 Mechanical Ventilator 10/10/16 04:00 98.7 Intake and Output 10/09/16 10/09/16 10/10/16 15:00 23:00 07:00 Intake Total 2090 ml 1500 ml 1200 ml Output Total 195 ml 285 ml 220 ml Balance 1895 ml 1215 ml 980 ml Exam General: WN/WD/NAD, AOx 0 HEENT: Unicetric/atraumatic/EOMI (does not follow commands) NECK: JVD elevated, no thyromegaly Lymph: no lymphadenopathy HEART: regular with no S3, II/ systolic murmur at apex LUNGS: Coarse sounds ABD: soft, NT, ND, +BS : Intact Neuro: non focal SKIN: chronic changes EXT: trace edema Results Result Diagram: 10/09/16 0430 10/10/16 0345 Results 24 hrs Laboratory Tests Test 10/09/16 13:49 10/09/16 17:55 10/09/16 21:51 10/10/16 02:48 Bedside Glucose 162 181 198 198 Test 10/10/16 03:45 10/10/16 05:25 10/10/16 09:04 Sodium Level 145 H Potassium Level 3.8 Chloride Level 113 H Carbon Dioxide Level 25 Anion Gap 11 Blood Urea Nitrogen 114 H Creatinine 1.52 H Glucose Level 155 Calcium Level 7.3 L Bedside Glucose 168 173 Medications Medications Current Medications Ondansetron HCl (Zofran Inj) 4 mg Q6H PRN IV NAUSEA AND/OR VOMITING; Start at 09:00 Acetaminophen (Tylenol Supp) [address] PAIN LEVEL 1-3 OR FEVER Last administered on 09/23/16 08:38; Admin Dose 650 MG; Start 09/21/16 at 09:00 Morphine Sulfate (morphine) 2 mg Q4H PRN IV PAIN LEVEL 7-10; Start 09/21/16 at 09:00 Lorazepam (Ativan) 1 mg Q2H PRN IV Seizures; Start 09/21/16 at 09:30 Amiodarone HCl (Cordarone) 200 mg DAILY PO Last administered on 10/10/16 09:13 ; Admin Dose 200 MG; Start 09/22/16 at 09:00 Digoxin (Digoxin) 0.125 mg DAILY PO Last administered on 10/10/16 09:14; Admin Dose 0.125 MG; Start 09/22/16 at 09:00 Atorvastatin Calcium (Lipitor) 40 mg DAILY@21 PO Last administered on 10/09/16 21:49; Admin Dose 40 MG; Start 09/21/16 at 21:00 Miscellaneous Information 1 ea NOTE XX ; Start 09/21/16 at 10:00 Glucose (Glutose) 15 gm Q15M PRN PO DECREASED GLUCOSE; Start 09/21/16 at 10:00 Glucose (Glutose) 22.5 gm Q15M PRN PO DECREASED GLUCOSE; Start 09/21/16 at 10: 00 Dextrose (D50w Syringe) 25 ml Q15M PRN IV DECREASED GLUCOSE; Start 09/21/16 at 10:00 Dextrose (D50w Syringe) 50 ml Q15M PRN IV DECREASED GLUCOSE; Start 09/21/16 at 10:00 Glucagon (Glucagen) 1 mg Q15M PRN IM DECREASED GLUCOSE; Start 09/21/16 at 10:00 Glucose (Glutose) 15 gm Q15M PRN BUCCAL DECREASED GLUCOSE; Start 09/21/16 at 10 :00 Ferrous Sulfate (Feosol Liquid Cup) 300 mg BID NGT Last administered on 09:12; Admin Dose 300 MG; Start 09/22/16 at 10:00 Diagnostic Test (Pha) (Accu-Chek) 1 ea 02 XX Last administered on 10/09/16 01: 45; Admin Dose 1 EA; Start 09/28/16 at 02:00 Insulin Aspart (Adult SC Insulin - Moder... Q4 SC Last administered on 09:06; Admin Dose 2 UNIT; Start 09/27/16 at 13:00 Sodium Chloride (1/2 NS) 1,000 ml @ 125 mls/hr Q8H IV Last administered on 10/10 06:01; Admin Dose 125 MLS/HR; Start 09/29/16 at 17:00 IV Flush (NS 10 ml) 10 ml PRN PRN IV FLUSH LINE; Start 09/30/16 at 17:00 Insulin Glargine (Lantus) 18 unit DAILY@20 SC Last administered on 10/09/16 21: 57; Admin Dose 18 UNIT; Start 10/03/16 at 20:00 Collagenase (Santyl) 1 applic DAILY TOP Last administered on 10/09/16 08:35; Admin Dose 1 APPLIC; Start 10/05/16 at 17:00 Collagenase (Santyl) 1 applic PRN PRN TOP WOUND CARE Last administered on 13:20; Admin Dose 1 APPLIC; Start 10/05/16 at 15:30 Losartan Potassium (Cozaar) 25 mg DAILY PO ; Start 10/07/16 at 09:00; Status Future Hold Metoprolol Tartrate (Lopressor) 25 mg BID NGT Last administered on 6/6/17at 09: 13; Admin Dose 25 MG; Start 10/06/16 at 21:00 Levetiracetam (Keppra) 500 mg BID NGT Last administered on 10/10/16 09:13; Admin Dose 500 MG; Start 10/07/16 at 21:00 Pantoprazole (Protonix Tab) 40 mg DAILY@06 PO Last administered on 10/10/16 05: 22; Admin Dose 40 MG; Start 10/08/16 at 06:00 MILAGROS PRESSLEY MD Oct 10, 2016 10:19
--- NOTE | 2016-10-10 10:58 | CONS ---
Date/Time of Note Date/Time of Note DATE: 10/10/16 TIME: 10:56 Assessment/Plan Assessment/Plan Additional Assessment/Plan Ventilator setting; AC of 18, tidal volume 450, PEEP of 5, 30% FiO2. Assessment and recommendations; 1. Patient admitted for intracerebral bleed with extremely poor mental status, status post tracheostomy and G-tube placement. 2. Mild renal insufficiency. 3. History of diabetes and hypertension. 4. No overt seizure activity noted. Continue current treatment. Patient awaiting transfer to rehab center. Prognosis is extremely poor. Consultation Date/Type/Reason Admit Date/Time September 21, 2016 at 08:29 Initial Consult Date 09/21/16 Type of Consultation: Pulmonary/critical care Referring Provider: LAINEY AGARWAL 24 HR Interval Summary Free Text/Dictation Patient condition remains critical. Remains completely unresponsive. Has remained hemodynamically stable. General exam; elderly woman, on ventilator via tracheostomy currently in no distress, unresponsive. Exam/Review of Systems Vital Signs Vitals Vital Signs Date Time Temp Pulse Resp B/P Pulse Ox O2 Delivery O2 Flow Rate FiO2 10/10/16 10:00 80 19 104/55 97 Mechanical Ventilator 10/10/16 08:00 98.7 10/10/16 08:00 30 Intake and Output 10/09/16 10/09/16 10/10/16 15:00 23:00 07:00 Intake Total 2090 ml 1500 ml 1200 ml Output Total 195 ml 285 ml 220 ml Balance 1895 ml 1215 ml 980 ml Exam HEENT examination; supple neck, no JVD. No lymphadenopathy. Midline trachea. No thyromegaly. Tracheostomy placed with clean insertion site. Pupils are small bilaterally. Chest examination; clear to auscultation. S1-S2 audible, no murmurs. Abdomen examination; soft, G-tube in place. Nondistended. No organomegaly. Bowel sounds audible. Extremity examination; no peripheral edema. SOFTWARE QUALITY ASSURANCE SPECIALIST examination; patient remains unresponsive. Results Result Diagram: 10/09/16 0430 10/10/16 0345 Results 24 hrs Laboratory Tests Test 10/09/16 13:49 10/09/16 17:55 10/09/16 21:51 10/10/16 02:48 Bedside Glucose 162 181 198 198 Test 10/10/16 03:45 10/10/16 05:25 10/10/16 09:04 Sodium Level 145 H Potassium Level 3.8 Chloride Level 113 H Carbon Dioxide Level 25 Anion Gap 11 Blood Urea Nitrogen 114 H Creatinine 1.52 H Glucose Level 155 Calcium Level 7.3 L Bedside Glucose 168 173 Medications Medications Current Medications Ondansetron HCl (Zofran Inj) 4 mg Q6H PRN IV NAUSEA AND/OR VOMITING; Start at 09:00 Acetaminophen (Tylenol Supp) 650 mg Q4H PRN [place] PAIN LEVEL 1-3 OR FEVER Last administered on 09/23/16 08:38; Admin Dose 650 MG; Start 09/21/16 at 09:00 Morphine Sulfate (morphine) 2 mg Q4H PRN IV PAIN LEVEL 7-10; Start 09/21/16 at 09:00 Lorazepam (Ativan) 1 mg Q2H PRN IV Seizures; Start 09/21/16 at 09:30 Amiodarone HCl (Cordarone) 200 mg DAILY PO Last administered on 10/10/16 09:13 ; Admin Dose 200 MG; Start 09/22/16 at 09:00 Digoxin (Digoxin) 0.125 mg DAILY PO Last administered on 10/10/16 09:14; Admin Dose 0.125 MG; Start 09/22/16 at 09:00 Atorvastatin Calcium (Lipitor) 40 mg DAILY@21 PO Last administered on 10/09/16 21:49; Admin Dose 40 MG; Start 09/21/16 at 21:00 Miscellaneous Information 1 ea NOTE XX ; Start 09/21/16 at 10:00 Glucose (Glutose) 15 gm Q15M PRN PO DECREASED GLUCOSE; Start 09/21/16 at 10:00 Glucose (Glutose) 22.5 gm Q15M PRN PO DECREASED GLUCOSE; Start 09/21/16 at 10: 00 Dextrose (D50w Syringe) 25 ml Q15M PRN IV DECREASED GLUCOSE; Start 09/21/16 at 10:00 Dextrose (D50w Syringe) 50 ml Q15M PRN IV DECREASED GLUCOSE; Start 09/21/16 at 10:00 Glucagon (Glucagen) 1 mg Q15M PRN IM DECREASED GLUCOSE; Start 09/21/16 at 10:00 Glucose (Glutose) 15 gm Q15M PRN BUCCAL DECREASED GLUCOSE; Start 09/21/16 at 10 :00 Ferrous Sulfate (Feosol Liquid Cup) 300 mg BID NGT Last administered on 09:12; Admin Dose 300 MG; Start 09/22/16 at 10:00 Diagnostic Test (Pha) (Accu-Chek) 1 ea 02 XX Last administered on 10/09/16 01: 45; Admin Dose 1 EA; Start 09/28/16 at 02:00 Insulin Aspart (Adult SC Insulin - Moder... Q4 SC Last administered on 09:06; Admin Dose 2 UNIT; Start 09/27/16 at 13:00 Sodium Chloride (1/2 NS) 1,000 ml @ 125 mls/hr Q8H IV Last administered on 10/10 06:01; Admin Dose 125 MLS/HR; Start 09/29/16 at 17:00 IV Flush (NS 10 ml) 10 ml PRN PRN IV FLUSH LINE; Start 09/30/16 at 17:00 Insulin Glargine (Lantus) 18 unit DAILY@20 SC Last administered on 10/09/16 21: 57; Admin Dose 18 UNIT; Start 10/03/16 at 20:00 Collagenase (Santyl) 1 applic DAILY TOP Last administered on 10/09/16 08:35; Admin Dose 1 APPLIC; Start 10/05/16 at 17:00 Collagenase (Santyl) 1 applic PRN PRN TOP WOUND CARE Last administered on 13:20; Admin Dose 1 APPLIC; Start 10/05/16 at 15:30 Losartan Potassium (Cozaar) 25 mg DAILY PO ; Start 10/07/16 at 09:00; Status Future Hold Metoprolol Tartrate (Lopressor) 25 mg BID NGT Last administered on 10/10/16 09: 13; Admin Dose 25 MG; Start 10/06/16 at 21:00 Levetiracetam (Keppra) 500 mg BID NGT Last administered on 10/10/16 09:13; Admin Dose 500 MG; Start 10/07/16 at 21:00 Pantoprazole (Protonix Tab) 40 mg DAILY@06 PO Last administered on 10/10/16 05: 22; Admin Dose 40 MG; Start 10/08/16 at 06:00 JAY LEONARDO Oct 10, 2016 10:58
[2016-10-10] MEDS: COLLAGENASE 30 GM TUBE TOP SCH (13:22)
--- NOTE | 2016-10-10 14:32 | PN ---
Date/Time of Note Date/Time of Note DATE: 10/10/16 TIME: 14:28 Assessment/Plan VTE Prophylaxis VTE Prophylaxis Intervention: SCD's Assessment/Plan Chief Complaint/Hosp Course 1. Intracranial bleeding including intraparenchymal hematoma and bilateral subdural hematomas with midline shift-patient has poor mentation and is not alert and nonverbal 2. Ventilator dependent respiratory failure secondary to encephalopathy from #1 s/p Trach and PEG 3. Atrial fibrillation, rate controlled,, on amiodarone and digoxin. 4. Cardiomyopathy with ejection fraction of 30% with stage III and stage IV diastolic dysfunction: status post AICD 5. Hypernatremia likely 2/2 #1 : Per Neurosurgery, Correction of hypernatremia would be expected to cause increase in brain edema and thus ICP 6. Pulmonary congestion with probable underlying bilateral pneumonia 7. Type 2 diabetes mellitus. Continue Lantus and SSI. 8. Normocytic anemia. The patient has a history of iron deficiency. Continue iron supplements. 9. Sepsis with Strep group B bacteremia 10. Thrombocytopenia 11. Chronic renal insufficiency 12. Accelerated hypertension: BP now controlled 13. Hyperlipidemia. Continue statins. 14. Hypothyroidism with a chronic multinodular goiter . on synthroid, Last TSH check showed good control Plan: * Continue ICU supportive care for now * Creatinine trending up, hold losartan * Continue ventilator management and weaning/appreciate pulmonary input * Continue Lantus dosing for optimal blood sugar control * Patient continues on tube feeds and seems to be tolerating them. * Continue antibiotics as per infectious diseases. * Continue Keppra for seizure prophylaxis * Overall prognosis is poor, cerebral angiogram is not indicated at this time as patient already has poor prognosis and poor functional status, stable for downgrade to [place] DVT prophylaxis. Bilateral sequential compression devices. Gastrointestinal prophylaxis. Proton pump inhibitors. Problems: Subjective 24 Hr Interval Summary Subjective hx not possible: pt non-verbal Exam/Review of Systems Vital Signs Vitals Vital Signs Date Time Temp Pulse Resp B/P Pulse Ox O2 Delivery O2 Flow Rate FiO2 10/10/16 14:00 80 21 114/61 96 Mechanical Ventilator 10/10/16 12:00 99.1 10/10/16 08:00 30 Intake and Output 10/09/16 10/09/16 10/10/16 15:00 23:00 07:00 Intake Total 2090 ml 1500 ml 1375 ml Output Total 195 ml 285 ml 250 ml Balance 1895 ml 1215 ml 1125 ml Exam Constitutional: non-verbal Respiratory: clear to auscultation Cardiovascular: regular rate and rhythm Gastrointestinal: soft, No distended Musculoskeletal: nl extremities to inspection Results Result Diagram: 10/09/16 0430 10/10/16 0345 Results 24 hrs Laboratory Tests Test 10/09/16 17:55 10/09/16 21:51 10/10/16 02:48 10/10/16 03:45 Bedside Glucose 181 198 198 Sodium Level 145 H Potassium Level 3.8 Chloride Level 113 H Carbon Dioxide Level 25 Anion Gap 11 Blood Urea Nitrogen 114 H Creatinine 1.52 H Glucose Level 155 Calcium Level 7.3 L Test 10/10/16 05:25 10/10/16 09:04 10/10/16 13:17 Bedside Glucose 168 173 174 Medications Medications Current Medications Ondansetron HCl (Zofran Inj) 4 mg Q6H PRN IV NAUSEA AND/OR VOMITING; Start at 09:00 Acetaminophen (Tylenol Supp) 650 mg Q4H PRN [place] PAIN LEVEL 1-3 OR FEVER Last administered on 09/23/16 08:38; Admin Dose 650 MG; Start 09/21/16 at 09:00 Morphine Sulfate (morphine) 2 mg Q4H PRN IV PAIN LEVEL 7-10; Start 09/21/16 at 09:00 Lorazepam (Ativan) 1 mg Q2H PRN IV Seizures; Start 09/21/16 at 09:30 Amiodarone HCl (Cordarone) 200 mg DAILY PO Last administered on 10/10/16 09:13 ; Admin Dose 200 MG; Start 09/22/16 at 09:00 Digoxin (Digoxin) 0.125 mg DAILY PO Last administered on 10/10/16 09:14; Admin Dose 0.125 MG; Start 09/22/16 at 09:00 Atorvastatin Calcium (Lipitor) 40 mg DAILY@21 PO Last administered on 10/09/16 21:49; Admin Dose 40 MG; Start 09/21/16 at 21:00 Miscellaneous Information 1 ea NOTE XX ; Start 09/21/16 at 10:00 Glucose (Glutose) 15 gm Q15M PRN PO DECREASED GLUCOSE; Start 09/21/16 at 10:00 Glucose (Glutose) 22.5 gm Q15M PRN PO DECREASED GLUCOSE; Start 09/21/16 at 10: 00 Dextrose (D50w Syringe) 25 ml Q15M PRN IV DECREASED GLUCOSE; Start 09/21/16 at 10:00 Dextrose (D50w Syringe) 50 ml Q15M PRN IV DECREASED GLUCOSE; Start 09/21/16 at 10:00 Glucagon (Glucagen) 1 mg Q15M PRN IM DECREASED GLUCOSE; Start 09/21/16 at 10:00 Glucose (Glutose) 15 gm Q15M PRN BUCCAL DECREASED GLUCOSE; Start 09/21/16 at 10 :00 Ferrous Sulfate (Feosol Liquid Cup) 300 mg BID NGT Last administered on 09:12; Admin Dose 300 MG; Start 09/22/16 at 10:00 Diagnostic Test (Pha) (Accu-Chek) 1 ea 02 XX Last administered on 10/09/16 01: 45; Admin Dose 1 EA; Start 09/28/16 at 02:00 Insulin Aspart (Adult SC Insulin - Moder... Q4 SC Last administered on 13:21; Admin Dose 2 UNIT; Start 09/27/16 at 13:00 Sodium Chloride (1/2 NS) 1,000 ml @ 125 mls/hr Q8H IV Last administered on 10/10 13:24; Admin Dose 125 MLS/HR; Start 09/29/16 at 17:00 IV Flush (NS 10 ml) 10 ml PRN PRN IV FLUSH LINE; Start 09/30/16 at 17:00 Insulin Glargine (Lantus) 18 unit DAILY@20 SC Last administered on 10/09/16 21: 57; Admin Dose 18 UNIT; Start 10/03/16 at 20:00 Collagenase (Santyl) 1 applic DAILY TOP Last administered on 10/10/16 13:22; Admin Dose 1 APPLIC; Start 10/05/16 at 17:00 Collagenase (Santyl) 1 applic PRN PRN TOP WOUND CARE Last administered on 13:20; Admin Dose 1 APPLIC; Start 10/05/16 at 15:30 Losartan Potassium (Cozaar) 25 mg DAILY PO ; Start 10/07/16 at 09:00; Status Future Hold Metoprolol Tartrate (Lopressor) 25 mg BID NGT Last administered on 10/10/16 09: 13; Admin Dose 25 MG; Start 10/06/16 at 21:00 Levetiracetam (Keppra) 500 mg BID NGT Last administered on 10/10/16 09:13; Admin Dose 500 MG; Start 10/07/16 at 21:00 Pantoprazole (Protonix Tab) 40 mg DAILY@06 PO Last administered on 10/10/16 05: 22; Admin Dose 40 MG; Start 10/08/16 at 06:00 TIMA ESPOSITO Oct 10, 2016 14:32
--- NOTE | 2016-10-10 16:57 | PN ---
Date/Time of Note Date/Time of Note DATE: 10/10/16 TIME: 16:52 Assessment/Plan VTE Prophylaxis VTE Prophylaxis Intervention: SCD's Assessment/Plan Assessment/Plan Assessment * intracerebral bleed with extremely poor mental status, status post tracheostomy and G-tube placement. . Mild renal insufficiency. . History of diabetes and hypertension. Plan * will follow up as needed * continue present management Subjective 24 Hr Interval Summary Free Text/Dictation * Course reviewed with RN * Patient seen and examined * Tolerating tube feeding * No residuals Exam/Review of Systems Vital Signs Vitals Vital Signs Date Time Temp Pulse Resp B/P Pulse Ox O2 Delivery O2 Flow Rate FiO2 10/10/16 16:00 80 10/10/16 15:04 17 97 30 10/10/16 14:00 114/61 Mechanical Ventilator 10/10/16 12:00 99.1 Intake and Output 10/09/16 10/09/16 10/10/16 15:00 23:00 07:00 Intake Total 2090 ml 1500 ml 1375 ml Output Total 195 ml 285 ml 250 ml Balance 1895 ml 1215 ml 1125 ml Exam Constitutional: frail, non-verbal Neck: non-tender, supple Respiratory: diminished breath sounds, normal air movement Cardiovascular: nl pulses, regular rate and rhythm Gastrointestinal: non-tender, soft Musculoskeletal: nl extremities to inspection Extremities: normal pulses Results Result Diagram: 10/09/16 0430 10/10/16 0345 Results 24 hrs Laboratory Tests Test 10/09/16 17:55 10/09/16 21:51 10/10/16 02:48 10/10/16 03:45 Bedside Glucose 181 198 198 Sodium Level 145 H Potassium Level 3.8 Chloride Level 113 H Carbon Dioxide Level 25 Anion Gap 11 Blood Urea Nitrogen 114 H Creatinine 1.52 H Glucose Level 155 Calcium Level 7.3 L Test 10/10/16 05:25 10/10/16 09:04 10/10/16 13:17 Bedside Glucose 168 173 174 Medications Medications Current Medications Ondansetron HCl (Zofran Inj) 4 mg Q6H PRN IV NAUSEA AND/OR VOMITING; Start at 09:00 Acetaminophen (Tylenol Supp) 650 mg Q4H PRN [place] PAIN LEVEL 1-3 OR FEVER Last administered on 09/23/16t 08:38; Admin Dose 650 MG; Start 09/21/16 at 09:00 Morphine Sulfate (morphine) 2 mg Q4H PRN IV PAIN LEVEL 7-10; Start 09/21/16 at 09:00 Lorazepam (Ativan) 1 mg Q2H PRN IV Seizures; Start 09/21/16 at 09:30 Amiodarone HCl (Cordarone) 200 mg DAILY PO Last administered on 10/10/16 09:13 ; Admin Dose 200 MG; Start 09/22/16 at 09:00 Digoxin (Digoxin) 0.125 mg DAILY PO Last administered on 10/10/16 09:14; Admin Dose 0.125 MG; Start 09/22/16 at 09:00 Atorvastatin Calcium (Lipitor) 40 mg DAILY@21 PO Last administered on 10/09/16 21:49; Admin Dose 40 MG; Start 09/21/16 at 21:00 Miscellaneous Information 1 ea NOTE XX ; Start 09/21/16 at 10:00 Glucose (Glutose) 15 gm Q15M PRN PO DECREASED GLUCOSE; Start 09/21/16 at 10:00 Glucose (Glutose) 22.5 gm Q15M PRN PO DECREASED GLUCOSE; Start 09/21/16 at 10: 00 Dextrose (D50w Syringe) 25 ml Q15M PRN IV DECREASED GLUCOSE; Start 09/21/16 at 10:00 Dextrose (D50w Syringe) 50 ml Q15M PRN IV DECREASED GLUCOSE; Start 09/21/16 at 10:00 Glucagon (Glucagen) 1 mg Q15M PRN IM DECREASED GLUCOSE; Start 09/21/16 at 10:00 Glucose (Glutose) 15 gm Q15M PRN BUCCAL DECREASED GLUCOSE; Start 09/21/16 at 10 :00 Ferrous Sulfate (Feosol Liquid Cup) 300 mg BID NGT Last administered on 09:12; Admin Dose 300 MG; Start 09/22/16 at 10:00 Diagnostic Test (Pha) (Accu-Chek) 1 ea 02 XX Last administered on 10/09/16 01: 45; Admin Dose 1 EA; Start 09/28/16 at 02:00 Insulin Aspart (Adult SC Insulin - Moder... Q4 SC Last administered on 13:21; Admin Dose 2 UNIT; Start 09/27/16 at 13:00 Sodium Chloride (1/2 NS) 1,000 ml @ 125 mls/hr Q8H IV Last administered on 10/10 13:24; Admin Dose 125 MLS/HR; Start 09/29/16 at 17:00 IV Flush (NS 10 ml) 10 ml PRN PRN IV FLUSH LINE; Start 09/30/16 at 17:00 Insulin Glargine (Lantus) 18 unit DAILY@20 SC Last administered on 10/09/16 21: 57; Admin Dose 18 UNIT; Start 10/03/16 at 20:00 Collagenase (Santyl) 1 applic DAILY TOP Last administered on 10/10/16 13:22; Admin Dose 1 APPLIC; Start 10/05/16 at 17:00 Collagenase (Santyl) 1 applic PRN PRN TOP WOUND CARE Last administered on 13:20; Admin Dose 1 APPLIC; Start 10/05/16 at 15:30 Losartan Potassium (Cozaar) 25 mg DAILY PO ; Start 10/07/16 at 09:00; Status Future Hold Metoprolol Tartrate (Lopressor) 25 mg BID NGT Last administered on 10/10/16 09: 13; Admin Dose 25 MG; Start 10/06/16 at 21:00 Levetiracetam (Keppra) 500 mg BID NGT Last administered on 10/10/16 09:13; Admin Dose 500 MG; Start 10/07/16 at 21:00 Pantoprazole (Protonix Tab) 40 mg DAILY@06 PO Last administered on 10/10/16 05: 22; Admin Dose 40 MG; Start 10/08/16 at 06:00 DARÍO REYES NP Oct 10, 2016 16:57
--- NOTE | 2016-10-10 19:13 | PN ---
Date/Time of Note Date/Time of Note DATE: 10/10/16 TIME: 19:12 Assessment/Plan Lines/Catheters IV Catheter Type (from Nrsg): PICC Line Assessment/Plan Chief Complaint/Hosp Course Resp Failure SP Tracheostomy will continue vent support and trach care Problems: Subjective 24 Hr Interval Summary Constitutional: improved Pain Control: mild Exam/Review of Systems Vital Signs Vitals Vital Signs Date Time Temp Pulse Resp B/P Pulse Ox O2 Delivery O2 Flow Rate FiO2 10/10/16 19:00 80 20 101/54 96 Mechanical Ventilator 10/10/16 18:00 99.0 10/10/16 17:00 30 Intake and Output 10/09/16 10/09/16 10/10/16 15:00 23:00 07:00 Intake Total 2090 ml 1500 ml 1375 ml Output Total 195 ml 285 ml 250 ml Balance 1895 ml 1215 ml 1125 ml Exam Neck: non-tender, supple Respiratory: clear to auscultation, normal air movement Cardiovascular: nl pulses, regular rate and rhythm Gastrointestinal: nl liver, spleen, non-tender, soft Results Result Diagram: 10/09/16 0430 10/10/16 0345 LULY ESPINAL MD Oct 10, 2016 19:13
[2016-10-10] MEDS: INSULIN GLARGINE [LANtus] 3 ML PEN SC SCH (20:37)
[2016-10-10] MEDS: ATORVASTATIN 40 MG TAB PO SCH (20:38)
[2016-10-11] VITALS (28 sets, daily range): BP systolic 88–121; BP diastolic 44–61; PULSE 80; RESP 15–31
[2016-10-11] MEDS: Insulin NOVOLOG SS MODERATE Algorithm(NPO/TPN/ENTERAL FEEDS) SC SCH ×5 (01:28→17:24)
[2016-10-11] MEDS: ACCU-CHEK XX SCH (02:00)
[2016-10-11] MEDS: LEVOTHYROXINE 100 MCG TAB NGT SCH (05:14)
[2016-10-11] MEDS: SOD CHLORIDE 0.45% 1,000 ML IV SCH ×2 (05:14→17:17)
[2016-10-11] MEDS: PANTOPRAZOLE (EC) 40 MG TAB PO SCH (05:14)
[2016-10-11 05:15] LABS: CREATININE 1.65 mg/dl (0.44-1.00); POTASSIUM 3.7 mmol/L (3.5-5.1)
[2016-10-11] MEDS: LEVETIRACETAM 500 MG TAB NGT SCH (08:49)
[2016-10-11] MEDS: FERROUS SULFATE 60 MG/ML 5ML CUP NGT SCH (08:49)
[2016-10-11] MEDS: DIGOXIN 0.125 MG TAB PO SCH (08:49)
[2016-10-11] MEDS: AMIODARONE 200 MG TAB PO SCH (08:51)
[2016-10-11] MEDS: METOPROLOL 25 MG TAB NGT SCH (08:52)
[2016-10-11] MEDS: COLLAGENASE 30 GM TUBE TOP SCH (09:01)
--- NOTE | 2016-10-11 10:00 | CONS ---
Date/Time of Note Date/Time of Note DATE: 10/11/16 TIME: 09:53 Assessment/Plan Assessment/Plan Chief Complaint/Hosp Course IMPRESSION: 1. Congestive heart failure exacerbation, systolic, acute on chronic, by recent echocardiogram in 07/2016 revealing ejection fraction of 25%. 2. Cardiomyopathy with decreased left ventricular ejection fraction, last ejection fraction approximately 25% by echocardiogram 07/2016. 3. History of automatic implantable cardioverter-defibrillator. 4. History of paroxysmal atrial fibrillation, previously on systemic anticoagulation. 5. Subdural hematomas with midline shift and vasogenic edema 6. Encephalopathy. 7. Hypotension-labile and at times normal 8. Anemia. 9. Thrombocytopenia 10.Hypernatremia-resolved 11.Bacteremia 12. Resp fail s/p trach Recc: -Tele -For trach today -Follow MS closly -Continue BB as tolerated -losartan held and f/u bp closely -Continue amio/digoxin/statin -Follow volume status closely and decrease rate of IVF -NRSG following -Palliative care following Problems: Consultation Date/Type/Reason Admit Date/Time September 21, 2016 at 08:29 Initial Consult Date 09/21/16 Type of Consultation: Cardiology Reason for Consultation cardiomyopathy Referring Provider: LAINEY AGARWAL Exam/Review of Systems Vital Signs Vitals Vital Signs Date Time Temp Pulse Resp B/P Pulse Ox O2 Delivery O2 Flow Rate FiO2 10/11/16 09:00 80 27 98/50 98 Mechanical Ventilator Trach Collar 10/11/16 08:00 30 10/11/16 08:00 98.8 Intake and Output 10/10/16 10/10/16 10/11/16 15:00 23:00 07:00 Intake Total 1550 ml 700 ml 175 ml Output Total 175 ml 80 ml 40 ml Balance 1375 ml 620 ml 135 ml Exam Review of Systems: CONSTITUTIONAL: No fevers, chills. PULMONARY: trached CARDIOVASCULAR: No obvious chest pain/palpitations GASTROINTESTINAL: No nausea/vomiting. GENITOURINARY: No hematuria/dysuria. MUSCULOSKELETAL: No obvious myagias/arthalgias. PSYCHIATRIC: The patient denies depression. NEUROLOGIC: No weakness Constitutional: other (encephalopathic) Psych: no complaints Head: normocephalic ENMT: mucosa pink and moist Neck: jvd (9 cm water), supple Respiratory: diminished breath sounds (at bbases/B) Cardiovascular: regular rate and rhythm Gastrointestinal: non-tender, soft Musculoskeletal: muscle tone (normal) Extremities: edema Neurological: other (Encephalopathic) Results Result Diagram: 10/09/16 0430 10/11/16 0330 Results 24 hrs Laboratory Tests Test 10/10/16 13:17 10/10/16 17:06 10/10/16 20:35 10/11/16 01:24 Bedside Glucose 174 179 162 176 Test 10/11/16 03:30 10/11/16 05:11 10/11/16 08:48 Sodium Level 141 Potassium Level 3.7 Chloride Level 109 Carbon Dioxide Level 26 Anion Gap 10 Blood Urea Nitrogen 123 H Creatinine 1.65 H Glucose Level 145 Calcium Level 7.0 L Bedside Glucose 170 143 Medications Medications Current Medications Ondansetron HCl (Zofran Inj) 4 mg Q6H PRN IV NAUSEA AND/OR VOMITING; Start at 09:00 Acetaminophen (Tylenol Supp) 650 mg Q4H PRN MT PAIN LEVEL 1-3 OR FEVER Last administered on 09/23/16 08:38; Admin Dose 650 MG; Start 09/21/16 at 09:00 Morphine Sulfate (morphine) 2 mg Q4H PRN IV PAIN LEVEL 7-10; Start 09/21/16 at 09:00 Lorazepam (Ativan) 1 mg Q2H PRN IV Seizures; Start 09/21/16 at 09:30 Amiodarone HCl (Cordarone) 200 mg DAILY PO Last administered on 10/11/16 08:51 ; Admin Dose 200 MG; Start 09/22/16 at 09:00 Digoxin (Digoxin) 0.125 mg DAILY PO Last administered on 10/11/16 08:49; Admin Dose 0.125 MG; Start 09/22/16 at 09:00 Atorvastatin Calcium (Lipitor) 40 mg DAILY@21 PO Last administered on 10/10/16 20:38; Admin Dose 40 MG; Start 09/21/16 at 21:00 Miscellaneous Information 1 ea NOTE XX ; Start 09/21/16 at 10:00 Glucose (Glutose) 15 gm Q15M PRN PO DECREASED GLUCOSE; Start 09/21/16 at 10:00 Glucose (Glutose) 22.5 gm Q15M PRN PO DECREASED GLUCOSE; Start 09/21/16 at 10: 00 Dextrose (D50w Syringe) 25 ml Q15M PRN IV DECREASED GLUCOSE; Start 09/21/16 at 10:00 Dextrose (D50w Syringe) 50 ml Q15M PRN IV DECREASED GLUCOSE; Start 09/21/16 at 10:00 Glucagon (Glucagen) 1 mg Q15M PRN IM DECREASED GLUCOSE; Start 09/21/16 at 10:00 Glucose (Glutose) 15 gm Q15M PRN BUCCAL DECREASED GLUCOSE; Start 09/21/16 at 10 :00 Ferrous Sulfate (Feosol Liquid Cup) 300 mg BID NGT Last administered on 08:49; Admin Dose 300 MG; Start 09/22/16 at 10:00 Diagnostic Test (Pha) (Accu-Chek) 1 ea 02 XX Last administered on 10/09/16 01: 45; Admin Dose 1 EA; Start 09/28/16 at 02:00 Insulin Aspart (Adult SC Insulin - Moder... Q4 SC Last administered on 09:13; Admin Dose 2 UNIT; Start 09/27/16 at 13:00 Sodium Chloride (1/2 NS) 1,000 ml @ 125 mls/hr Q8H IV Last administered on 10/11 05:14; Admin Dose 125 MLS/HR; Start 09/29/16 at 17:00 IV Flush (NS 10 ml) 10 ml PRN PRN IV FLUSH LINE; Start 09/30/16 at 17:00 Insulin Glargine (Lantus) 18 unit DAILY@20 SC Last administered on 10/10/16 20: 37; Admin Dose 18 UNIT; Start 10/03/16 at 20:00 Collagenase (Santyl) 1 applic DAILY TOP Last administered on 10/11/16 09:01; Admin Dose 1 APPLIC; Start 10/05/16 at 17:00 Collagenase (Santyl) 1 applic PRN PRN TOP WOUND CARE Last administered on 13:20; Admin Dose 1 APPLIC; Start 10/05/16 at 15:30 Losartan Potassium (Cozaar) 25 mg DAILY PO ; Start 10/07/16 at 09:00; Status Future Hold Metoprolol Tartrate (Lopressor) 25 mg BID NGT Last administered on 10/10/16 09: 13; Admin Dose 25 MG; Start 10/06/16 at 21:00 Levetiracetam (Keppra) 500 mg BID NGT Last administered on 10/11/16 08:49; Admin Dose 500 MG; Start 10/07/16 at 21:00 Pantoprazole (Protonix Tab) 40 mg DAILY@06 PO Last administered on 10/11/16 05: 14; Admin Dose 40 MG; Start 10/08/16 at 06:00 MATHEW AMADO Oct 11, 2016 10:00
--- NOTE | 2016-10-11 10:33 | CONS ---
Date/Time of Note Date/Time of Note DATE: 10/11/16 TIME: 10:30 Assessment/Plan Assessment/Plan Additional Assessment/Plan Assessment recommendations; next 1. Patient admitted with intracranial bleed with profound mental unresponsiveness, status post tracheostomy and PEG tube placement. 2. Renal insufficiency. 3. No overt seizure activity noted. Continue current treatment. Patient can be transferred to telemetry unit. With subsequent transfer to a rehab center. Prognosis remains extremely poor. Consultation Date/Type/Reason Admit Date/Time September 21, 2016 at 08:29 Initial Consult Date 09/21/16 Type of Consultation: Pulmonary/critical care Referring Provider: LAINEY AGARWAL 24 HR Interval Summary Free Text/Dictation Patient condition remains unchanged. Remains profoundly unresponsive. Patient however has remained hemodynamically stable. No untoward events reported. General exam; elderly woman, on ventilator via tracheostomy currently in no distress. Unresponsive. Exam/Review of Systems Vital Signs Vitals Vital Signs Date Time Temp Pulse Resp B/P Pulse Ox O2 Delivery O2 Flow Rate FiO2 10/11/16 09:00 80 27 98/50 98 Mechanical Ventilator Trach Collar 10/11/16 08:00 30 10/11/16 08:00 98.8 Intake and Output 10/10/16 10/10/16 10/11/16 15:00 23:00 07:00 Intake Total 1550 ml 700 ml 175 ml Output Total 175 ml 80 ml 40 ml Balance 1375 ml 620 ml 135 ml Exam HEENT examination; supple neck, no JVD. No lymphadenopathy. Midline trachea. No thyromegaly. Tracheostomy in place with clean insertion site. Pupils are small bilaterally. Chest examination; clear to auscultation. S1-S2 audible, no murmurs. Regular rhythm. Abdomen examination; soft, PEG tube in place. Normal distended. Bowel sounds audible. Extremity examination; no peripheral edema. Pulses 1+ bilaterally. [employer] examination; patient remains completely unresponsive. Results Result Diagram: 10/09/16 0430 10/11/16 0330 Results 24 hrs Laboratory Tests Test 10/10/16 13:17 10/10/16 17:06 10/10/16 20:35 10/11/16 01:24 Bedside Glucose 174 179 162 176 Test 10/11/16 03:30 10/11/16 05:11 10/11/16 08:48 Sodium Level 141 Potassium Level 3.7 Chloride Level 109 Carbon Dioxide Level 26 Anion Gap 10 Blood Urea Nitrogen 123 H Creatinine 1.65 H Glucose Level 145 Calcium Level 7.0 L Bedside Glucose 170 143 Medications Medications Current Medications Ondansetron HCl (Zofran Inj) 4 mg Q6H PRN IV NAUSEA AND/OR VOMITING; Start at 09:00 Acetaminophen (Tylenol Supp) 650 mg Q4H PRN [place] PAIN LEVEL 1-3 OR FEVER Last administered on 09/23/16 08:38; Admin Dose 650 MG; Start 09/21/16 at 09:00 Morphine Sulfate (morphine) 2 mg Q4H PRN IV PAIN LEVEL 7-10; Start 09/21/16 at 09:00 Lorazepam (Ativan) 1 mg Q2H PRN IV Seizures; Start 09/21/16 at 09:30 Amiodarone HCl (Cordarone) 200 mg DAILY PO Last administered on 10/11/16 08:51 ; Admin Dose 200 MG; Start 09/22/16 at 09:00 Digoxin (Digoxin) 0.125 mg DAILY PO Last administered on 10/11/16 08:49; Admin Dose 0.125 MG; Start 09/22/16 at 09:00 Atorvastatin Calcium (Lipitor) 40 mg DAILY@21 PO Last administered on 10/10/16 20:38; Admin Dose 40 MG; Start 09/21/16 at 21:00 Miscellaneous Information 1 ea NOTE XX ; Start 09/21/16 at 10:00 Glucose (Glutose) 15 gm Q15M PRN PO DECREASED GLUCOSE; Start 09/21/16 at 10:00 Glucose (Glutose) 22.5 gm Q15M PRN PO DECREASED GLUCOSE; Start 09/21/16 at 10: 00 Dextrose (D50w Syringe) 25 ml Q15M PRN IV DECREASED GLUCOSE; Start 09/21/16 at 10:00 Dextrose (D50w Syringe) 50 ml Q15M PRN IV DECREASED GLUCOSE; Start 09/21/16 at 10:00 Glucagon (Glucagen) 1 mg Q15M PRN IM DECREASED GLUCOSE; Start 09/21/16 at 10:00 Glucose (Glutose) 15 gm Q15M PRN BUCCAL DECREASED GLUCOSE; Start 09/21/16 at 10 :00 Ferrous Sulfate (Feosol Liquid Cup) 300 mg BID NGT Last administered on 08:49; Admin Dose 300 MG; Start 09/22/16 at 10:00 Diagnostic Test (Pha) (Accu-Chek) 1 ea 02 XX Last administered on 10/09/16 01: 45; Admin Dose 1 EA; Start 09/28/16 at 02:00 Insulin Aspart (Adult SC Insulin - Moder... Q4 SC Last administered on 09:13; Admin Dose 2 UNIT; Start 09/27/16 at 13:00 Sodium Chloride (1/2 NS) 1,000 ml @ 75 mls/hr [id number] IV Last administered on 10/11/16 05:14; Admin Dose 125 MLS/HR; Start 09/29/16 at 17:00 IV Flush (NS 10 ml) 10 ml PRN PRN IV FLUSH LINE; Start 09/30/16 at 17:00 Insulin Glargine (Lantus) 18 unit DAILY@20 SC Last administered on 10/10/16 20: 37; Admin Dose 18 UNIT; Start 10/03/16 at 20:00 Collagenase (Santyl) 1 applic DAILY TOP Last administered on 10/11/16 09:01; Admin Dose 1 APPLIC; Start 10/05/16 at 17:00 Collagenase (Santyl) 1 applic PRN PRN TOP WOUND CARE Last administered on 13:20; Admin Dose 1 APPLIC; Start 10/05/16 at 15:30 Losartan Potassium (Cozaar) 25 mg DAILY PO ; Start 10/07/16 at 09:00; Status Future Hold Metoprolol Tartrate (Lopressor) 25 mg BID NGT Last administered on 10/10/16 09: 13; Admin Dose 25 MG; Start 10/06/16 at 21:00 Levetiracetam (Keppra) 500 mg BID NGT Last administered on 10/11/16 08:49; Admin Dose 500 MG; Start 10/07/16 at 21:00 Pantoprazole (Protonix Tab) 40 mg DAILY@06 PO Last administered on 10/11/16 05: 14; Admin Dose 40 MG; Start 10/08/16 at 06:00 JAY LEONARDO Oct 11, 2016 10:33
--- NOTE | 2016-10-11 12:14 | CONS ---
Date/Time of Note Date/Time of Note DATE: 10/11/16 TIME: 12:13 Assessment/Plan Assessment/Plan Chief Complaint/Hosp Course SUBJECTIVE: No events overnight. Noncommunicative, afebrile, NAD INDWELLINGS: trach, PEG, Macedo catheter, PICC line placed on 09/30/2016. PHYSICAL EXAMINATION: GENERAL: Chronically ill-appearing, elderly woman who is noncommunicative, in no distress. HEENT: Head atraumatic, normocephalic. Sclerae anicteric. Buccal mucosa dry. CHEST: Rise symmetrical. Breath sounds clear. HEART: S1, S2. ABDOMEN: Soft, bowel sounds present. EXTREMITIES: Without cyanosis. ASSESSMENT: 1. Status post sepsis with Streptococcal bacteremia, completed treatment. 2. Acute encephalopathy. 3. Intracranial hemorrhage. 4. Diabetes. 5. Acute respiratory failure and cardiomyopathy. 6. UTI==> yeast, poss colonized PLAN: The patient remains, will add antifungal coverage DW staff Problems: Consultation Date/Type/Reason Admit Date/Time September 21, 2016 at 08:29 Initial Consult Date 09/21/16 Type of Consultation: ID Referring Provider: LAINEY AGARWAL Exam/Review of Systems Vital Signs Vitals Vital Signs Date Time Temp Pulse Resp B/P Pulse Ox O2 Delivery O2 Flow Rate FiO2 10/11/16 09:00 80 27 98/50 98 Mechanical Ventilator Trach Collar 10/11/16 08:00 30 10/11/16 08:00 98.8 Intake and Output 10/10/16 10/10/16 10/11/16 15:00 23:00 07:00 Intake Total 1550 ml 700 ml 175 ml Output Total 175 ml 80 ml 40 ml Balance 1375 ml 620 ml 135 ml Results Result Diagram: 10/09/16 0430 10/11/16 0330 Results 24 hrs Laboratory Tests Test 10/10/16 13:17 10/10/16 17:06 10/10/16 20:35 10/11/16 01:24 Bedside Glucose 174 179 162 176 Test 10/11/16 03:30 10/11/16 05:11 10/11/16 08:48 Sodium Level 141 Potassium Level 3.7 Chloride Level 109 Carbon Dioxide Level 26 Anion Gap 10 Blood Urea Nitrogen 123 H Creatinine 1.65 H Glucose Level 145 Calcium Level 7.0 L Bedside Glucose 170 143 Medications Medications Current Medications Ondansetron HCl (Zofran Inj) 4 mg Q6H PRN IV NAUSEA AND/OR VOMITING; Start at 09:00 Acetaminophen (Tylenol Supp) [address] PAIN LEVEL 1-3 OR FEVER Last administered on 09/23/16 08:38; Admin Dose 650 MG; Start 09/21/16 at 09:00 Morphine Sulfate (morphine) 2 mg Q4H PRN IV PAIN LEVEL 7-10; Start 09/21/16 at 09:00 Lorazepam (Ativan) 1 mg Q2H PRN IV Seizures; Start 09/21/16 at 09:30 Amiodarone HCl (Cordarone) 200 mg DAILY PO Last administered on 10/11/16 08:51 ; Admin Dose 200 MG; Start 09/22/16 at 09:00 Digoxin (Digoxin) 0.125 mg DAILY PO Last administered on 10/11/16 08:49; Admin Dose 0.125 MG; Start 09/22/16 at 09:00 Atorvastatin Calcium (Lipitor) 40 mg DAILY@21 PO Last administered on 10/10/16 20:38; Admin Dose 40 MG; Start 09/21/16 at 21:00 Miscellaneous Information 1 ea NOTE XX ; Start 09/21/16 at 10:00 Glucose (Glutose) 15 gm Q15M PRN PO DECREASED GLUCOSE; Start 09/21/16 at 10:00 Glucose (Glutose) 22.5 gm Q15M PRN PO DECREASED GLUCOSE; Start 09/21/16 at 10: 00 Dextrose (D50w Syringe) 25 ml Q15M PRN IV DECREASED GLUCOSE; Start 09/21/16 at 10:00 Dextrose (D50w Syringe) 50 ml Q15M PRN IV DECREASED GLUCOSE; Start 09/21/16 at 10:00 Glucagon (Glucagen) 1 mg Q15M PRN IM DECREASED GLUCOSE; Start 09/21/16 at 10:00 Glucose (Glutose) 15 gm Q15M PRN BUCCAL DECREASED GLUCOSE; Start 09/21/16 at 10 :00 Ferrous Sulfate (Feosol Liquid Cup) 300 mg BID NGT Last administered on 08:49; Admin Dose 300 MG; Start 09/22/16 at 10:00 Diagnostic Test (Pha) (Accu-Chek) 1 ea 02 XX Last administered on 10/09/16 01: 45; Admin Dose 1 EA; Start 09/28/16 at 02:00 Insulin Aspart (Adult SC Insulin - Moder... Q4 SC Last administered on 09:13; Admin Dose 2 UNIT; Start 09/27/16 at 13:00 Sodium Chloride (1/2 NS) 1,000 ml @ 75 mls/hr [id number] IV Last administered on 10/11/16 05:14; Admin Dose 125 MLS/HR; Start 09/29/16 at 17:00 IV Flush (NS 10 ml) 10 ml PRN PRN IV FLUSH LINE; Start 09/30/16 at 17:00 Insulin Glargine (Lantus) 18 unit DAILY@20 SC Last administered on 10/10/16 20: 37; Admin Dose 18 UNIT; Start 10/03/16 at 20:00 Collagenase (Santyl) 1 applic DAILY TOP Last administered on 10/11/16 09:01; Admin Dose 1 APPLIC; Start 10/05/16 at 17:00 Collagenase (Santyl) 1 applic PRN PRN TOP WOUND CARE Last administered on 13:20; Admin Dose 1 APPLIC; Start 10/05/16 at 15:30 Losartan Potassium (Cozaar) 25 mg DAILY PO ; Start 10/07/16 at 09:00; Status Future Hold Metoprolol Tartrate (Lopressor) 25 mg BID NGT Last administered on 10/10/16 09: 13; Admin Dose 25 MG; Start 10/06/16 at 21:00 Levetiracetam (Keppra) 500 mg BID NGT Last administered on 10/11/16 08:49; Admin Dose 500 MG; Start 10/07/16 at 21:00 Pantoprazole (Protonix Tab) 40 mg DAILY@06 PO Last administered on 10/11/16 05: 14; Admin Dose 40 MG; Start 10/08/16 at 06:00 ANGELINA GAMEZ NP Oct 11, 2016 12:14
--- NOTE | 2016-10-11 12:34 | PN ---
Date/Time of Note Date/Time of Note DATE: 10/11/16 TIME: 12:33 Assessment/Plan Lines/Catheters IV Catheter Type (from Nrsg): PICC Line Macedo in Place (from Nrsg): Yes Assessment/Plan Chief Complaint/Hosp Course Resp Failure SP Tracheostomy will continue vent support and trach care Problems: Subjective 24 Hr Interval Summary Constitutional: improved Pain Control: mild Exam/Review of Systems Vital Signs Vitals Vital Signs Date Time Temp Pulse Resp B/P Pulse Ox O2 Delivery O2 Flow Rate FiO2 10/11/16 12:00 80 10/11/16 09:00 27 98/50 98 Mechanical Ventilator Trach Collar 10/11/16 08:00 30 10/11/16 08:00 98.8 Intake and Output 10/10/16 10/10/16 10/11/16 15:00 23:00 07:00 Intake Total 1550 ml 700 ml 175 ml Output Total 175 ml 80 ml 40 ml Balance 1375 ml 620 ml 135 ml Exam ENMT: mucosa pink and moist, nl external ears & nose, nl lips & teeth, nl nasal mucosa & septum Neck: non-tender, supple Respiratory: clear to auscultation, normal air movement Cardiovascular: nl pulses, regular rate and rhythm Gastrointestinal: nl liver, spleen, non-tender, soft Results Result Diagram: 10/09/16 0430 10/11/16 0330 LULY ESPINAL MD Oct 11, 2016 12:34
[2016-10-11] MEDS ORDERED: VORICONAZOLE 200 MG TAB PO SCH (21:00)
--- NOTE | 2016-10-12 03:26 | DS ---
DATE OF ADMISSION: 09/21/2016 DATE OF DISCHARGE: 10/11/2016 DISCHARGE DIAGNOSES: 1. Encephalopathy secondary to intracranial bleed with intraparenchymal hematoma and bilateral subd ural hematomas with midline shift, now status post tracheostomy and percutaneous endoscopic gastrost isabella, being discharged to [facility]. 2. Ventilator-dependent respiratory failure secondary to encephalopathy from intracranial hemorrhag e, status post tracheostomy and percutaneous endoscopic gastrostomy. 3. Atrial fibrillation, rate controlled. Continue amiodarone and digoxin. 4. Cardiomyopathy with ejection fraction of 30% with stage III and stage IV diastolic dysfunction, status post automatic implantable cardioverter-defibrillator in the past. Continue beta yessy as tolerated. 5. Bilateral pneumonia, status post antibiotics. 6. Sepsis with streptococcus group B bacteremia, status post antibiotics. The patient once again h as completed treatment for bacteremia. 7. Urinary tract infection secondary to yeast, possible colonization. Antifungal coverage added. Infectious Disease to follow in [facility]. 8. Chronic kidney disease. Will monitor. 9. Hypotension. Discontinued the patient's Cozaar. Monitor in [facility]. 10. Dyslipidemia. Continue statin. 11. Hypothyroidism. Continue ____. HOSPITAL COURSE: The patient is a 76-year-old female with a history of hypertension; pulmonary hype rtension; dyslipidemia, AFib, on Eliquis; cardiomyopathy with an EF of 30% as well as diastolic hear t failure; hypothyroidism; sick sinus syndrome, status post pacemaker placement as well as aortic st enosis. The patient was admitted for acute encephalopathy. The patient was found to have an intrap arenchymal hematoma as well as bilateral subdural hematomas with midline shift. The patient was see n by Neurosurgery. Recommendation was to keep sodium elevated with intent of decreased cerebral henrietta ma. The patient's mentation continued to be poor. Neurosurgery was not indicated. At one point, t here was discussion of possible cerebral angiogram, but because of the patient's poor mentation, Raj rosurgery felt that it's no longer indicated. The management would not be affected. Once again, no neurosurgical intervention was done ____ medical management because operation was not felt to trevino e outcome and neurological status remained poor. She was not felt to be clear for any anticoagulati on as vascular abnormality was not ruled out. The patient was no longer withdrawing. Neurological status continued to be poor throughout her hospitalization. Family did want a trach and PEG, which were done. Of note, the patient's A1c was within normal limits at 5.4, but the patient was requirin g insulin. Sugars were stable with Lantus. Ultimately it was felt that the patient was stable for discharge to [facility]. On day of discharge, the patient's vital signs, labs, physical exam were stabl e. There were no other acute issues. CONDITION ON DISCHARGE: Fair. DISPOSITION: To [facility]. MEDICATIONS: The patient is to continue inpatient medications as per medication reconciliation. FOLLOWUP: The patient to follow with physicians at [facility]. Greater than 30 minutes was spent coordinating discharge of patient. Dictated By: TIMA ESPOSITO MD BS/JARRELL Conf#: [id number] DID#: [id number]
--- NOTE | 2016-10-12 07:29 | PN ---
DATE: 10/08/2016 PALLIATIVE CARE Conference was done with patient's mother, father and personal friend who translated. Reviewed current medical condition, the fact that she has not had any significant improvement in her overall neurological recovery. We covered her current medical condition and overall clinical status and grzegorz falk to look for to see if there is any change that would indicate a positive prognosis. There are none at this time clinically. I explained this to family members as well as to the family madison schafer who interpreted for me. Goals of care were discussed. Family members understanding of the comple xity of her illness. Background social issues were discussed with her also. Once again overall pro gnosis was discussed as well as acceptable quality of life. The daughter is of the opinion john t they should wait to see whether or not she improves at all. She is pegged, she is trached. They a re aware of the fact that she may require transfer to a subacute unit sometime in the future. They a re appreciative of the level of communication that has occurred amongst them. Goals of care will be discussed once again. My overall impressions are that patient will end up in a subacute unit, but I have asked family members to watch for ongoing suffering including readmissions to the hospital fo r multiple infectious processes in the future, sepsis and similar. Her code status remains FULL COD E. The patient's daughter will not change her mind. A POLST form should be addressed prior to janine ent's discharge. Dictated By: SANDRA MEHTA MD, LP/JARRELL Conf#: [id number] DID#: [id number]
== END 2016-10-11 20:30 | DRG 4 ==
LOC: E/R 07:03 → ICU 08:29
PROVIDERS: ADMIT Family Medicine; ATTEND Family Medicine
PROC: 5A1955Z Respiratory Ventilation, Greater than 96 Consecutive Hours (ICD-10-PCS; principal; 2016-09-21)
PROC: 0BH17EZ Insertion of Endotracheal Airway into Trachea, Via Natural or Artificial Opening (ICD-10-PCS; 2016-09-21)
PROC: 0B110F4 Bypass Trachea to Cutaneous with Tracheostomy Device, Open Approach (ICD-10-PCS; 2016-10-06)
PROC: 0DH63UZ Insertion of Feeding Device into Stomach, Percutaneous Approach (ICD-10-PCS; 2016-10-08)
DX: A41.81 Sepsis due to Enterococcus (principal); G93.6 Cerebral edema; J69.0 Pneumonitis due to inhalation of food and vomit; I62.01 Nontraumatic acute subdural hemorrhage; G92 Toxic encephalopathy; I50.23 Acute on chronic systolic (congestive) heart failure; G93.1 Anoxic brain damage, not elsewhere classified; E23.2 Diabetes insipidus; J96.01 Acute respiratory failure with hypoxia; L89.313 Pressure ulcer of right buttock, stage 3; Q28.2 Arteriovenous malformation of cerebral vessels; I42.9 Cardiomyopathy, unspecified; G81.90 Hemiplegia, unspecified affecting unspecified side; E87.0 Hyperosmolality and hypernatremia; N17.9 Acute kidney failure, unspecified; B37.49 Other urogenital candidiasis; D69.59 Other secondary thrombocytopenia; I11.0 Hypertensive heart disease with heart failure; I25.2 Old myocardial infarction; Z95.0 Presence of cardiac pacemaker; Z79.02 Long term (current) use of antithrombotics/antiplatelets; E03.9 Hypothyroidism, unspecified; E11.9 Type 2 diabetes mellitus without complications; D50.9 Iron deficiency anemia, unspecified; T45.525A Adverse effect of antithrombotic drugs, initial encounter; E04.9 Nontoxic goiter, unspecified
CPT/HCPCS: 31500; 36415; 36569; 36600; 70450; 70496; 70498; 71010; 76937; 80048; 80053; 80061; 80202; 81001; 81003; 82803; 82962; 83036; 83605; 83690; 83735; 84100; 84295; 84436; 84439; 84443; 84479; 84484; 85025; 85610; 85730; 86803; 87040; 87081; 87086; 93005; 93306; 94002; 94003; 94770; 95819; 96361; 96365; 96368; 96375; J1940; C9113; J0690; J0696; J1815; J1953; J2150; J2250; J2724; J3010; J3370; J3480; J7030; J7040; J7050; J7070; J7120; J7999; Q9967

== ENCOUNTER 2016-10-18 04:55 | Inpatient (IN) | payer MEDICARE, OTHER ==
[2016-10-18] VITALS (13 sets, daily range): BP systolic 78–122; BP diastolic 38–61; PULSE 80–88; Ht 157.5 cm; Wt 90.9 kg
[~2016-10-18] VITALS: Ht 157.5 cm; Wt 90.9 kg
[2016-10-18] MEDS ORDERED: SOD CHLORIDE 0.9% 1,000 ML IV STA (05:09)
[2016-10-18 05:29] LABS: ADD SCAN DIFF NO
[2016-10-18] MEDS ORDERED: NORepinephrine 8MG/250 ML (PMX 250 ML ONE (05:32)
[2016-10-18] MEDS: NORepinephrine 8MG/250 ML (PMX 250 ML IV SCH ×3 (05:34→21:07)
--- NOTE | 2016-10-18 05:34 | ERA ---
ER Documentation Chief Complaint Date/Time DATE: 10/18/16 TIME: 05:33 Chief Complaint HPI 76-year-old female transferred from [facility] for hypotension. Patient be treated for a GI bleed there. Patient unable to read relevant history as she is on a trach. History of per transfer sheet ROS All systems reviewed and are negative except as per history of present illness. Medications Home Meds Discontinued Reported Medications Metoprolol Succinate* (Toprol XL*) 50 Mg Tab.er.24h, 50 MG PO BID, #30 TAB 09/21/16 Furosemide* (Furosemide*) 40 Mg/5 Ml Solution, 40 MG PO DAILY, #150 ML 09/21/16 Ferrous Sulfate* (Ferrous Sulfate*) 325 Mg Tabec, 325 MG PO BID, TAB 07/30/16 Rosuvastatin Calcium* (Crestor*) 10 Mg Tablet, 10 MG PO QHS, #30 TAB 06/15/16 Metformin* (Glucophage*) 500 Mg Tab, 500 MG PO WITH BREAKFAST DINNE, #30 TAB 06/15/16 Losartan Potassium* (Losartan Potassium*) 50 Mg Tablet, 50 MG PO DAILY, TAB 06/15/16 Amiodarone Hcl* (Amiodarone Hcl*) 200 Mg Tablet, 200 MG PO DAILY, #30 TAB 06/15/16 Digoxin* (Lanoxin*) 0.125 Mg Tablet, 0.125 MG PO DAILY, TAB 06/15/16 Apixaban* (Eliquis*) 2.5 Mg Tablet, 2.5 MG PO BID, TAB 06/15/16 Discontinued Scripts Nitroglycerin* (Nitrostat*) 0.4 Mg Tab.subl, 1 TAB SL Q5M Y for CHEST PAIN for 1 Day Prov:NACHO DAVE MD 08/11/16 Potassium Chloride* (Potassium Chloride*) 8 Meq Capsule.er, 10 MEQ PO DAILY for 1 Day, CAP Prov:NACHO DAVE MD 08/11/16 Levothyroxine Sodium (Levothroid) 100 Mcg Tablet, 100 MCG PO BEFORE BREAKFAST for 30 Days, TAB Prov:BRITTANY OLIVEIRA MD 08/04/16 Allergies Allergies: Coded Allergies: lisinopril (Verified Allergy, Unknown, COUGH, 09/24/16) LISINOPRIL COUGH PER MS4 RN DON PMhx/Soc History of Surgery: Yes (Pacemaker) Anesthesia Reaction: No Hx Neurological Disorder: No Hx Respiratory Disorders: No Hx Cardiac Disorders: Yes (HTN, PACEMAKER, ) Hx Psychiatric Problems: No Hx Miscellaneous Medical Probl: Yes (OBESITY) Hx Alcohol Use: No Hx Substance Use: No Hx Tobacco Use: No Smoking Status: Unknown if ever smoked Physical Exam Vitals Vital Signs Date Time Temp Pulse Resp B/P Pulse Ox O2 Delivery O2 Flow Rate FiO2 10/18/16 05:26 95 10/18/16 04:55 80 23 95 40 Physical Exam Const: [] Head: Atraumatic Eyes: Normal Conjunctiva ENT: Normal External Ears, Nose and Mouth. Neck: Full range of motion..~ No meningismus. Resp: Clear to auscultation bilaterally Cardio: Regular rate and rhythm, no murmurs Abd: Soft, non tender, non distended. Normal bowel sounds Skin: No petechiae or rashes Back: No midline or flank tenderness Ext: No cyanosis, or edema Neur: Awake and alert Psych: Normal Mood and Affect Results 24 hrs Current Medications Medications (Trade) Dose Ordered Sig/Alistair Route PRN Reason Start Time Stop Time Status Last Admin Dose Admin Sodium Chloride (NS) 1,000 ml @ 1,000 mls/hr Q1H STAT IV 10/18/16 05:09 10/18/16 06:08 10/18/16 05:24 Procedures/MDM EKG: Rate/Rhythm: Normal Sinus Rhythm QRS, ST, T-waves: No changes consistent w/ acute ischemia Impression: No evidence of ischemia or arrhythmia Chest X-ray 1V Interpreted by me: Soft Tissue: No acute abnormalities Bones: No acute abnormalities Mediastinum/Cardiac Silhouette/Lungs: No acute abnormalities Critical Care: Time: 45 minutes Treatments/Evaluations: Close monitoring and treatment of unstable vital signs, cardiorespiratory, and neurologic status, while maintaining tight balance of fluid, respiratory, and cardiac interventions. Medical decision-makin-year-old female with GI bleed was not hypotensive. Patient has PICC line already in place. Started on Levophed for pressure support. Given fluid bolus. Departure Diagnosis: Primary Impression: Hypotension Qualified Code: I95.9 - Hypotension, unspecified hypotension type Condition: Serious LAMARJERWin Oct 18, 2016 05:34
[2016-10-18 05:35] LABS: ABNORMAL IP MESSAGE 1; BASOPHILS % 0.1 % (0.0-2.0); HEMATOCRIT 23.8 % (37.0-47.0); HEMOGLOBIN 7.5 g/dl (12.0-16.0); LYMPHOCYTES # 0.6 10^3/ul (0.8-2.9); LYMPHOCYTES % 3.6 % (15.0-51.0); MEAN CORPUSCULAR HEMOGLOBIN 28.6 pg (29.0-33.0); MEAN CORPUSCULAR HGB CONC 31.5 g/dl (32.0-37.0); MEAN CORPUSCULAR VOLUME 90.8 fl (82.0-101.0); MONOCYTE # 1.1 10^3/ul (0.3-0.9); MONOCYTES % 6.3 % (0.0-11.0); NEUTROPHILS % 89.4 % (39.0-77.0); PLATELET COUNT 63 10^3/UL (140-415); RED BLOOD COUNT 2.62 10^6/ul (4.20-5.40); RED CELL DISTRIBUTION WIDTH 17.9 % (11.5-14.5); WHITE BLOOD COUNT 17.9 10^3/ul (4.8-10.8)
[2016-10-18 05:48] LABS: INR 1.56; PROTIME 18.8 Sec (12.2-14.2); PT RATIO 1.5
[2016-10-18 05:49] LABS: PARTIAL THROMBOPLASTIN TIME 33.5 Sec (25.0-35.0)
[2016-10-18 06:20] LABS: ALBUMIN/GLOBULIN RATIO 0.66; BILIRUBIN,DIRECT 0.6 mg/dl (0.00-0.20); BILIRUBIN,INDIRECT 0.6 mg/dl (0-1.1); BILIRUBIN,TOTAL 1.2 mg/dl (0.2-1.3); CALCIUM 7.2 mg/dl (8.4-10.2); POTASSIUM 4.7 mmol/L (3.5-5.1)
[2016-10-18 06:32] LABS: CREATININE 2.88 mg/dl (0.44-1.00)
[2016-10-18 06:35] LABS: TROPONIN-I 0.216 ng/ml (0.00-0.12)
--- NOTE | 2016-10-18 07:55 | RADRPT ---
PROCEDURE: XR Chest. CLINICAL INDICATION: Chest pain TECHNIQUE: An AP view of the chest was obtained. COMPARISON: X-ray dated 10/17/2016 FINDINGS: A tracheostomy tube is in place. There is a left subclavian dual chamber pacemaker AICD. There is a right upper extremity PICC line with tip near the cavoatrial junction. There are diffuse bilateral interstitial opacities with small right and moderate left pleural effusi ons. No pneumothorax is seen. The cardiomediastinal silhouette is mildly enlarged . Calcificatio ns are seen within the aortic arch. The osseous structures demonstrate senescent changes. IMPRESSION: 1. Diffuse bilateral interstitial opacities may reflect interstitial edema or pneumonia. Findings are increased when compared to the prior examination. 2. Moderate left and small right pleural effusions, also increased. 3. Mild cardiomegaly and aortic atherosclerosis. 4. Tubes and lines, as described above. RPTAT: HH .Agnieszka Gómez MD, MD Date Time Electronically viewed and signed by .Agnieszka Gómez MD, on 10/18/2016 07:55 .G/
[2016-10-18] MEDS ORDERED: PANTOPRAZOLE 40 MG INJ IV SCH (12:00)
--- NOTE | 2016-10-18 12:11 | HP ---
Date/Time of Note Date/Time of Note DATE: 10/18/16 TIME: 12:00 Assessment/Plan VTE Prophylaxis VTE Prophylaxis Intervention: SCD's VTE Contraindication Reason: hemorrhagic cerebral infarction Lines/Catheters IV Catheter Type (from Nrs): PICC Line Central line still needed: Yes Assessment/Plan Assessment/Plan 76-year-old female sent from [place] with the following problems: 1. Septic shock with probable hypovolemic components 2. GI bleed (Acute , Active) 3. Bilateral pneumonia 4. Chronic respiratory failure ventilator dependent via tracheostomy 5. 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 Recent severe intracranial hemorrhage 7. Chronic dysphagia status post PEG tube 8. Elevated troponin is likely secondary to demand ischemia 9. Acute anemia likely secondary to blood loss 10. Paroxysmal atrial fibrillation on digoxin and beta-yessy 11. Chronic cardiomyopathy likely ischemic status post AICD 12. Chronic hypothyroidism 13. Elevated digoxin levels PLAN: * Intensive care unit admission and monitoring * Protonix drip/ GI consult / we have to avoid anticoagulation in the setting of GI bleed and recent intracerebral hemorrhage * Broad-spectrum antibiotics/ pancultures / ventilator support * Continue low intermittent suction / continue to hold tube feeds / FSBS q4 * Blood transfusion/gentle hydration / wean off pressors as tolerated * Cardiology consultation / trend troponins / 2D echo if none recently / we have to avoid aspirin and Plavix at this time * Hold digoxin / ? Trend levels / follow cardiology recommendations * Continue Synthroid * HD per renal Further interventions per clinical course Long-term prognosis extremely grim/family updated of clinical status/recommend DNR status. Critical care time 45mins HPI/ROS Admit Date/Time Admit Date/Time October 18, 2016. . Hx of Present Illness Presenting complaint: Hypotension History of presenting complaint: 76-year-old female with chronic encephalopathy following spontaneous Intracranial bleed with intraparenchymal hematoma and bilateral subdural hematoma who was transferred to [facility] ( [place] ) after tracheostomy and PEG tube placement, who remains critically ventilator dependent secondary to encephalopathy. While at [place], she was found to have coffee-ground emesis from her PEG tube as well as from a rectal tube, and an NG tube also was placed to suction and that also produced black substances. She was s also found to have a low hemoglobin that to be secondary to GI bleed. She was getting a blood transfusion for that; however during the transfusion her blood pressure dropped dangerously low levels. Based on that she was referred back to [facility] for further management and intervention. As there are no ICU beds open, the patient is being observed in the emergency room. Here in the emergency room, she has been started on pressor support and her blood pressure has responded well. She is also been started on IV fluid hydration. She is being worked up for a transfusion reaction after which she will receive blood transfusion per my orders. At this time the patient is chronically encephalopathic, nonverbal, does not follow commands, does not track even though she will open her eyes spontaneously. I spoken with her daughter at the bedside, daughter reiterates that her mother remains a full code. Chest x-ray done here reviewed showed that the patient might have some persistent pneumonia, she was treated with antibiotics and completed her course prior to being transferred on her last admission. However radiology reports chest x-ray as looking worse, and so she will be restarted on intravenous antibiotics. We will also panculture to adequately define organisms. She is planned for intensive care unit admission and monitoring. There has been no report or documentation of fever however. ROS Subjective hx not possible: pt non-verbal, pt critical status PMH/Family/Social Past Medical History 1. Chronic vegetative state secondary to #2 2. Severe intracranial bleed because sensitive encephalopathy 3. Ventilator dependent respiratory failure status post tracheostomy 4. Chronic dysphagia secondary to encephalopathy status post PEG tube 5. Dyslipidemia 6. Hypothyroidism 7. Paroxysmal atrial fibrillation 8. Cardiomyopathy with EF of 30% with stage IV diastolic dysfunction status post AICD in the past 9. Acute on chronic kidney disease currently hemodialysis dependent 10. History of coronary artery disease Past Surgical History 1. AICD placement 2. Tracheostomy 3. G-tube placement . Past Surgical Hx: other Family History Significant Family History: no pertinent family hx Social History Alcohol Use: none Smoking Status: Unknown if ever smoked Drug Use: none Exam/Review of Systems Vital Signs Vitals Vital Signs Date Time Temp Pulse Resp B/P Pulse Ox O2 Delivery O2 Flow Rate FiO2 10/18/16 11:11 80 20 117/47 99 Mechanical Ventilator 10/18/16 07:30 40 10/18/16 05:00 98.3 Exam Exam Constitutional: non-verbal, other (obese, elderly, Patient barely responsive, not following commands or tracking), Eyes open spontaneously, No oriented, No distress Psych: other (unable to assess) Head: normocephalic Eyes: Pupils are equal, nondilated, right pupil sluggishly reactive, left pupil nonreactive No icteric ENMT: NG tube with coffee-ground substance No mucosa pink and moist (dry) Neck: non-tender tracheostomy to ventilator, Respiratory: diminished breath sounds, + bibasal crackles No labored breathing Cardiovascular: regular rate and rhythm, No murmurs/extra sounds Gastrointestinal: soft, non-tender, bowel sounds, other (PEG tube noted with no cellulitis or discharge) rectal tube with black stools, Genitourinary - Female: nl external genitalia Extremities: Diffuse muscle wasting, bilateral foot in boots without obvious edema, bilateral upper extremity with significant edema however and ecchymosis Neurological: other (altered, eyes opening spontaneously but no tracking or following commands), No nl mental status, No nl speech, No nl strength Labs Result Diagram: 10/18/1651910/18/16519 Medications Medications Current Medications Norepinephrine (Levophed) 250 ml @ 1.875 mls/ hr TITRATE IV Last administered on 10/18/16t 05:34; Admin Dose 1.875 MLS/HR; Start 10/18/16 at 06:00 Procedures Procedures PROCEDURE: XR Chest. CLINICAL INDICATION: Chest pain TECHNIQUE: An AP view of the chest was obtained. COMPARISON: X-ray dated 10/17/2016 FINDINGS: A tracheostomy tube is in place. There is a left subclavian dual chamber pacemaker AICD. There is a right upper extremity PICC line with tip near the cavoatrial junction. There are diffuse bilateral interstitial opacities with small right and moderate left pleural effusions. No pneumothorax is seen. The cardiomediastinal silhouette is mildly enlarged . Calcifications are seen within the aortic arch. The osseous structures demonstrate senescent changes. IMPRESSION: 1. Diffuse bilateral interstitial opacities may reflect interstitial edema or pneumonia. Findings are increased when compared to the prior examination. 2. Moderate left and small right pleural effusions, also increased. 3. Mild cardiomegaly and aortic atherosclerosis. 4. Tubes and lines, as described above. RPTAT: .Agnieszka Dalia, MD, Date Time Electronically viewed and signed by .Agnieszka Gómez MD, on 10/18/2016 07 :55 .G/ CC: JER NEWTON BOLATITO M. Oct 18, 2016 12:10
[2016-10-18] MEDS ORDERED: VANCOMYCIN IV PER PHARMACY XX SCH (12:30)
[2016-10-18] MEDS: CEFEPIME 1GM/50 ML (PMX) 50 ML IVPB SCH ×2 (13:27→21:03)
[2016-10-18] MEDS: SOD CHLORIDE 0.9% 1,000 ML IV SCH (13:28)
[2016-10-18] MEDS: FUROSEMIDE 40 MG INJ IV SCH ×2 (13:40→18:00)
[2016-10-18 13:47] LABS: CK-MB 4.4 ng/ml (0.0-2.4)
[2016-10-18 13:49] LABS: TROPONIN-I 0.234 ng/ml (0.00-0.12)
[2016-10-18] MEDS ORDERED: DESMOPRESSIN IVPB ONE (16:00)
[2016-10-18] MEDS ORDERED: SOD CHLORIDE 0.9% IVPB ONE (16:00)
--- NOTE | 2016-10-18 16:40 | CONS ---
DATE OF ADMISSION: 10/18/2016 DATE OF CONSULTATION: 10/18/2016 TYPE OF CONSULTATION: Nephrology. REASON FOR CONSULTATION: Acute kidney injury. REQUESTING PHYSICIAN: LAINEY AGARWAL MD. HISTORY OF PRESENT ILLNESS: This is a 76-year-old female with a past medical history of ventilatory dependent respiratory failure, history of dysphagia, status post PEG, history of anuric acute kidne y injury initiated on hemodialysis, a history of CHF, coronary artery disease who was transferred [facility] [place] to [facility] for gastrointestinal bleed. The patien t was recently initiated on hemodialysis at [place] due to anuric acute kidney injury, volume overloa d. The patient received 2 to 3 sessions. The patient this morning was noted to have bleeding and b ecame hypotensive. As a result, she was transferred to [facility] Emergency Room for mayo nued care. The patient was on anticoagulation and Eliquis. In the emergency room, the patient was given IV fluids and IV antibiotic therapy. The patient had a white count of 17,000. There has been no gross episodes of hemoptysis, hemetemesis or hematochezia in the emergency room, no other acute events are noted. In terms of patient's renal history, the patient was noted as stated above to be in acute kidney inj ury from [facility]. The patient was initiated on hemodialysis and has been tolerati ng dialysis well. The patient is scheduled for hemodialysis today. There have been no reports of a ny rashes or hemoptysis. Positive lower GI bleed noted. PAST MEDICAL HISTORY: As stated above, history of ventilator dependent respiratory failure, history of dysphagia, status post PEG, history of arrhythmia, history of coronary artery disease and histor y of congestive heart failure. PAST SURGICAL HISTORY: Status post trach, status post PEG, status post pacemaker. FAMILY HISTORY: Noncontributory. ALLERGIES: LISINOPRIL. SOCIAL HISTORY: No history of smoking, drinking or drug use. MEDICATIONS: The patient's medications have been reviewed. REVIEW OF SYSTEMS: Unable to do adequate review of systems as patient is obtunded. Pertinent posit greg obtained by reviewing medical records, speaking to hospital staff as stated in HPI, otherwise n egative. PHYSICAL EXAMINATION: VITAL SIGNS: Blood pressure is 124/42, respirations 10, pulse 86, temperature 98.6. HEENT: Head is normocephalic. Pupils are reactive to light. NECK: Supple. HEART: Regular rate. LUNGS: Show diminished breath sounds at base. ABDOMEN: Soft, nontender to palpation. No rebound or guarding. EXTREMITIES: Negative for clubbing, cyanosis. Positive edema, diffuse anasarca. DERMATOLOGIC: No rashes. MUSCULOSKELETAL: No joint effusions. NEUROLOGIC: No change in exam. MEDICATIONS: The patient's medications have been reviewed. LABORATORY DATA: Shows a sodium 136, potassium 4.7, chloride 104, BUN 139, creatinine 2.88, calcium 7.2. Troponins 0.216. BNP 20,000, white count 17.9, hemoglobin 7.5, hematocrit 23.8, platelet cou nt 63. INR is 1.56. ASSESSMENT AND PLAN: This is a 76-year-old female: 1. Oligoanuric acute kidney injury on top of chronic kidney disease. Etiology is unclear, possibly due to cardiorenal syndrome plus acute tubular necrosis. Patient is currently dialysis dependent. We will continue hemodialysis daily for solute clearance and volume removal. Monitor for any signs of renal recovery. 2. Anemia with active gastrointestinal bleed. It may be due to uremic bleeding. Will give the pat ient 1 dose of DDAVP. Will monitor hemoglobin and hematocrit levels. Follow up with gastrointestin al and transfuse packed red blood cells as needed. 3. Mineral bone disorder, monitor calcium and phosphorus levels. 4. Volume overload secondary to congestive heart failure and acute kidney injury. Continue ultrafi ltration with hemodialysis. Continue current medical management. 5. Monitor ventilatory dependent respiratory failure. Vent settings reviewed. Arterial blood gase s reviewed and continue to monitor. 6. Dysphagia, status post percutaneous endoscopic gastrostomy. Continue tube feeding. 7. Encephalopathy. Etiology is chronic. Continue to observe. 8. Sepsis secondary to possible pneumonia. The patient's chest x-ray shows bilateral opacities. P paddy is for the patient to continue current antibiotic regimen. We will follow up cultures. Follow up with primary team. 8. Arrhythmia, status post pacemaker. Continue to monitor. 9. History of coronary artery disease. Continue current medical management. Thank you, Dr. Agarwal for an interesting consultation. It will be a pleasure to follow patient with skylar yadav throughout the hospital course. Dictated By: ROSLYN MARMOLEJO DO NR/JARRELL Conf#: [id number] DID#: [id number]
[2016-10-18 17:08] LABS: POST-TRANSFUSION BILIRUBIN 1.7 mg/dl; PRETRANSFUSION BILIRUBIN 0.6 mg/dl
--- NOTE | 2016-10-18 17:49 | CONS ---
DATE OF ADMISSION: 10/18/2016 DATE OF CONSULTATION: 10/18/2016 TYPE OF CONSULTATION: Cardiology REASON FOR CONSULTATION: Cardiomyopathy with decreased left ventricular ejection fraction, congesti ve heart failure. REQUESTING PHYSICIAN: Kelly Agarwal MD from the hospitalist service. HISTORY OF PRESENT ILLNESS: Ms. Albrecht is a 76-year-old female with a history of cardiomyopathy with decreased left ventricular ejection fraction, last one to be approximately 25% by echo 07/2016 , AICD, paroxysmal atrial fibrillation previously on systemic anticoagulation, none since admit to [facility] with subdural hematomas, recurrent bouts of congestive heart failure, hypertension, who initially presented with encephalopathy and was found to have bilateral subdural hematomas with midl ine shift and vasogenic edema. The patient was stabilized and underwent trach and G-tube placement and was transferred to [facility] for ongoing care. The patient was at [place] with stable vital signs when she noted to have a significant drop in hemoglobin to 7.5 and GI bleeding a nd additionally hypotension. Given these findings, the patient was transferred to the emergency dep artment to be transferred to ICU. At this time, the patient remains on Levophed pressor support and no anticoagulation. PAST MEDICAL HISTORY: As above in HPI. MEDICATIONS CURRENTLY IN HOSPITAL: 1. Colace 100 mg b.i.d. 2. IV fluid hydration mL/hour. 3. Cefepime. 4. Lasix 40 mg IV b.i.d. 5. Protonix 40 mg IV daily. 6. Levophed pressor support. ALLERGIES: LISINOPRIL. SOCIAL HISTORY: No tobacco, ETOH or illicit drug use. FAMILY HISTORY: No history of sudden cardiac or early CAD. REVIEW OF SYSTEMS: As above in HPI. CONSTITUTIONAL: No fevers, chills. PULMONARY: No current shortness of breath. CARDIOVASCULAR: No current chest pain. GASTROINTESTINAL: No vomiting. GENITOURINARY: No hematuria. MUSCULOSKELETAL: Degenerative joint disease. PSYCHIATRIC: No documented psych history. NEUROLOGIC: Encephalopathy, subdural hematomas. HEMATOLOGIC: Anemia. PHYSICAL EXAMINATION: VITAL SIGNS: Temperature 98, blood pressure most recently 126/44 on Levophed pressor support, pulse 83, respiratory rate 20, saturating 95%. GENERAL: The patient is trached, on the vent, nonresponsive. NECK: Trach in place. CHEST: Upper airway transmitted rhonchorous sounds. HEART: Regular rate and rhythm. Normal S1, S2, I/ systolic murmur, laterally displaced PMI. ABDOMEN: Positive bowel sounds, soft, positive G-tube. EXTREMITIES: Trace edema, 1+ pulses bilateral posterior tibial. LABORATORY DATA: Most recent from today, white count 17.9, hemoglobin 7.5, platelet count of 63. S odium 136, potassium 4.7, creatinine 2.88, BUN 139. AST 173, ALT 82. Troponin 0.216. BNP 20,100. INR 1.56. IMAGING STUDIES: As above in HPI with a chest x-ray revealing diffuse bilateral interstitial opacit ies, moderate left and small right pleural effusions, mild cardiomegaly. ECG: Reveals sinus rhythm with nonspecific ST and T-wave abnormalities. IMPRESSION: 1. Congestive heart failure, systolic, acute on chronic. 2. Hypotension, on pressor support. 3. Cardiomyopathy with severely depressed left ventricular ejection fraction, last one approximatel y 25%. 4. History of paroxysmal atrial fibrillation. 5. Anemia, new onset, severe. 6. Subdural hematomas. 7. Encephalopathy. 8. Chronic respiratory failure, status post tracheostomy. 9. Dysphagia, status post G-tube. 10. Leukocytosis. 11. Renal failure. 12. . RECOMMENDATIONS: 1. At this time, would admit patient to ICU monitoring and place the patient on continuous telemetr y monitoring. 2. Continue the patient's broad-spectrum antibiotics and follow up all culture data. 3. Continue the patient's Lasix diuresis as tolerated. 4. Continue the patient's Levophed pressor support. 5. Hold all anticoagulation including aspirin and consider transfusion of packed RBCs. 6. Continue to assess for source of bleeding. 7. Further workup and treatment depends on ongoing clinical issues per PMD and alternative consulta tions. Thank you for allowing me to take part in the care of this patient. I will continue to follow along very closely with you. Further recommendations will be made as the patient progresses through her inpatient hospital clinical course. Dictated By: MATHEW BACH/JARRELL Conf#: [id number] DID#: [id number] CC: KELLY AGARWAL MD;*EndCC*
[2016-10-18 19:03] LABS: CK-MB 4.85 ng/ml (0.0-2.4)
[2016-10-18 19:05] LABS: TROPONIN-I 0.36 ng/ml (0.00-0.12)
[2016-10-18] MEDS: PANTOPRAZOLE IV 80 MG in SOD CHLORIDE 0.9% 100 ML IV SCH (19:56)
[2016-10-18] MEDS: DOCUSATE SODIUM 100 MG CAP PO SCH (20:58)
[2016-10-18 21:01] LABS: HEMATOCRIT 29.6 % (37.0-47.0)
[2016-10-19] VITALS (30 sets, daily range): BP systolic 49–114; BP diastolic 19–76; PULSE 39–80; RESP 15–25; TEMP 99.3
[2016-10-19] MEDS ORDERED: NA BICARBONATE 8.4% 50 ML SYG ONE
[2016-10-19] MEDS ORDERED: EPINEPHrine 0.1 MG/ML SYG ONE
[2016-10-19] MEDS: SOD CHLORIDE 0.9% 1,000 ML IV SCH (00:35)
[2016-10-19] MEDS: NORepinephrine 8MG/250 ML (PMX 250 ML IV SCH ×2 (01:59→07:14)
[2016-10-19] MEDS ORDERED: PHENYLephrine 20MG IN 250 ML 250 ML ONE (02:23)
[2016-10-19] MEDS ORDERED: PHENYLephrine 40 MG in DEXTROSE 5% 496 ML IV SCH ×2 (02:30→07:00)
[2016-10-19] MEDS ORDERED: PHENYLephrine 20MG IN 250 ML 250 ML IV SCH (02:30)
--- NOTE | 2016-10-19 02:52 | CONS ---
DATE OF ADMISSION: 10/18/2016 DATE OF CONSULTATION: 10/18/2016 TYPE OF CONSULTATION: Gastroenterology. HISTORY OF PRESENT ILLNESS: I had seen the patient at 2:00 p.m. The patient was seen in the emerge ncy room, bed 4. A 76-year-old female with vent-dependent respiratory failure, had a PEG tube place d 6 to 7 days ago, end-stage renal disease on hemodialysis, developed GI bleeding [place] Because of a hypotensive episode and ongoing GI bleeding, patient was transferred to [facility] further care. The patient was originally supposed to go to the intensive care unit, but since the intensive care unit was full, she was transferred to the emergency room. PAST SURGICAL HISTORY: Status post pacemaker, trach and PEG. PAST MEDICAL HISTORY: Erythema, coronary artery disease, CHF, vent-dependent respiratory failure. ALLERGIES: LISINOPRIL. REVIEW OF SYSTEMS: Unable to do it. The patient is obtunded. PHYSICAL EXAMINATION: GENERAL: The patient is comfortable on vent. ABDOMEN: Benign. Through the G-tube site ____ coffee-ground colored material is coming out. LUNGS: Clear. EXTREMITIES: No edema. RECTAL: Stool is black in color. NEUROLOGIC: The patient is obtunded. LABORATORY DATA: BUN is 139, creatinine is 2.99. Troponin was mildly elevated. BNP was 20,000. H ematocrit was 23. INR was 1.56. IMPRESSION: 1. Kidney failure for which patient is on dialysis. This is third or fourth dialysis. 2. Anemia secondary to gastrointestinal bleeding. 3. Status post percutaneous endoscopic gastrostomy done 1 week ago. 4. Status post tracheostomy and ventilator-dependent respiratory failure. 5. Encephalopathy. 6. Sepsis, possible pneumonia. 7. Erythema status post pacemaker. 8. Coronary artery disease. PLAN: Continue PPI, monitor H and H and transfuse on a need basis, and if the patient is stable, wi ll proceed with EGD to identify the source of bleeding and perform therapeutic endoscopy at the same time. Dictated By: EDMAR DANGELO/JARRELL Conf#: [id number] DID#: [id number]
[2016-10-19] MEDS ORDERED: DEXTROSE 50% 50 ML SYRINGE ONE (04:51)
[2016-10-19] MEDS ORDERED: DEXTROSE 50% 50 ML SYRINGE IV ONE ×2 (05:30→07:00)
[2016-10-19] MEDS: FUROSEMIDE 40 MG INJ IV SCH (06:00)
[2016-10-19 06:27] LABS: ADD SCAN DIFF NO
[2016-10-19 06:39] LABS: ABNORMAL IP MESSAGE 1; HEMATOCRIT 24.4 % (37.0-47.0); HEMOGLOBIN 7.7 g/dl (12.0-16.0); MEAN CORPUSCULAR HEMOGLOBIN 29.1 pg (29.0-33.0); MEAN CORPUSCULAR HGB CONC 31.6 g/dl (32.0-37.0); MEAN CORPUSCULAR VOLUME 92.1 fl (82.0-101.0); PLATELET COUNT 56 10^3/UL (140-415); RED BLOOD COUNT 2.65 10^6/ul (4.20-5.40); RED CELL DISTRIBUTION WIDTH 18.7 % (11.5-14.5); WHITE BLOOD COUNT 27.3 10^3/ul (4.8-10.8)
[2016-10-19] MEDS ORDERED: VASOPRESSIN 60 UNIT in DEXTROSE 5% 57 ML IV SCH (07:00)
[2016-10-19 07:05] LABS: INR 2.54; PROTIME 27.7 Sec (12.2-14.2); PT RATIO 2.2
[2016-10-19 07:06] LABS: PARTIAL THROMBOPLASTIN TIME 47.1 Sec (25.0-35.0)
[2016-10-19 07:15] LABS: CALCIUM 6.4 mg/dl (8.4-10.2); POTASSIUM 4.9 mmol/L (3.5-5.1)
[2016-10-19 07:25] LABS: CREATININE 2.57 mg/dl (0.44-1.00)
[2016-10-19 07:49] LABS: LYMPHOCYTES # 0.5 10^3/ul (0.8-2.9); MONOCYTE # 0.8 10^3/ul (0.3-0.9); NEUTROPHIL # 25.7 10^3/ul (1.6-7.5)
[2016-10-19 07:50] LABS: PLATELET ESTIMATE PLT APPEAR DECREASED
[2016-10-19] MEDS: PANTOPRAZOLE IV 80 MG in SOD CHLORIDE 0.9% 100 ML IV SCH (07:50)
[2016-10-19] MEDS ORDERED: NORepinephrine 32 MG in DEXTROSE 5% 218 ML IV SCH (08:00)
[2016-10-19] MEDS ORDERED: PHENYLephrine 160 MG in DEXTROSE 5% 484 ML IV SCH (08:00)
--- NOTE | 2016-10-19 08:31 | PN ---
Date/Time of Note Date/Time of Note DATE: 10/19/16 TIME: 08:26 Assessment/Plan Lines/Catheters IV Catheter Type (from [facility]): PICC Line Urinary Cath still in place: Yes Assessment/Plan Assessment/Plan 1. anuric acute kidney injury on top of chronic kidney disease. Etiology is unclear, possibly due to cardiorenal syndrome plus acute tubular necrosis. - Patient is currently dialysis dependent. - continue hemodialysis daily for solute clearance and volume removal -if hemodynamically able to tolerate - Monitor for any signs of renal recovery. 2. Anemia with active gastrointestinal bleed. It may be due to uremic bleeding. -s/p DDAVP. -cont hd Will monitor hemoglobin and hematocrit levels. Follow up with gastrointestinal and transfuse packed red blood cells as needed. 3. Mineral bone disorder, monitor calcium and phosphorus levels. 4. Volume overload secondary to congestive heart failure and acute kidney injury. Continue ultrafiltration with hemodialysis. Continue current medical management. 5. ventilatory dependent respiratory failure. Vent settings reviewed. Arterial blood gases reviewed and continue to monitor. 6. Dysphagia, status post percutaneous endoscopic gastrostomy. Continue tube feeding. 7. Encephalopathy. Etiology is chronic. Continue to observe. 8. Septic shock secondary to possible pneumonia. The patient's chest x-ray shows bilateral opacities. -cont iv antibiotics, pressors We will follow up cultures. Follow up with primary team. 8. Arrhythmia, status post pacemaker. Continue to monitor. 9. History of coronary artery disease. Continue current medical management. greater than 35 minutes critical care time with patient Subjective 24 Hr Interval Summary Free Text/Dictation -pt critically ill, on pressors, ivf -pt had hd yesterday -remains anuric, plan for hd today Exam/Review of Systems Vital Signs Vitals Vital Signs Date Time Temp Pulse Resp B/P Pulse Ox O2 Delivery O2 Flow Rate FiO2 10/19/16 06:45 80 25 109/37 97 10/19/16 06:15 99.0 Mechanical Ventilator 10/19/16 04:46 50 Intake and Output 10/18/16 10/18/16 10/19/16 15:00 23:00 07:00 Intake Total 800 ml 1616.25 ml Output Total 2000 ml Balance -1200 ml 1616.25 ml Exam HEENT: Head is normocephalic. Pupils are reactive to light. NECK: Supple. HEART: Regular rate. LUNGS: Show diminished breath sounds at base. ABDOMEN: Soft, nontender to palpation. No rebound or guarding. EXTREMITIES: Negative for clubbing, cyanosis. Positive edema, diffuse anasarca. DERMATOLOGIC: No rashes. MUSCULOSKELETAL: No joint effusions. NEUROLOGIC: No change in exam. Results Result Diagram: 10/19/16 0610 10/19/16 0610 Results 24 hrs Laboratory Tests Test 10/18/16 12:35 10/18/16 13:52 10/18/16 18:25 10/18/16 20:56 Magnesium Level 3.5 H Creatine Kinase 265 H 295 H Creatine Kinase Index 1.7 1.6 Creatinine Kinase MB (Mass) 4.40 H 4.85 H Troponin I 0.234 *H 0.360 *H Random Vancomycin Level 14.4 Hemoglobin 9.0 L Hematocrit 29.6 #L Test 10/19/16 04:50 10/19/16 06:10 10/19/16 06:29 10/19/16 07:02 Bedside Glucose 39 *L 69 L 99 White Blood Count 27.3 #H Red Blood Count 2.65 L Hemoglobin 7.7 L Hematocrit 24.4 L Mean Corpuscular Volume 92.1 Mean Corpuscular Hemoglobin 29.1 Mean Corpuscular Hemoglobin Concent 31.6 L Red Cell Distribution Width 18.7 H Platelet Count 56 L Mean Platelet Volume Neutrophils % 94.0 H Band Neutrophils % 1.0 Lymphocytes % 2.0 L Monocytes % 3.0 Neutrophils # 25.7 H Lymphocytes # 0.5 L Monocytes # 0.8 Platelet Estimate PLT APPEAR DECREASED Prothrombin Time 27.7 #H Prothrombin Time Ratio 2.2 INR International Normalized Ratio 2.54 Activated Partial Thromboplast Time 47.1 H Sodium Level 135 Potassium Level 4.9 Chloride Level 107 Carbon Dioxide Level 16 L Anion Gap 17 H Blood Urea Nitrogen 112 H Creatinine 2.57 H Glucose Level 60 #L Calcium Level 6.4 L Medications Medications Current Medications Docusate Sodium 100 mg 100 mg BID PO ; Start 10/18/16 at 21:00 Sodium Chloride 1,000 ml @ 75 mls/hr [id number] IV Last administered on 00:35; Admin Dose 75 MLS/HR; Start 10/18/16 at 12:30 Cefepime HCl 50 ml @ 100 mls/hr Q12 IVPB Last administered on 10/18/16 21:03 ; Admin Dose 100 MLS/HR; Start 10/18/16 at 12:30 Pantoprazole 80 mg/Sodium Chloride 100 ml @ 10 mls/hr Q10H IV Last administered on 10/18/16 19:56; Admin Dose 10 MLS/HR; Start 10/18/16 at 18:30 Vasopressin 60 unit/Dextrose 60 ml @ 1.2 mls/hr Q12H IV Last administered on 08:21; Admin Dose 1.2 MLS/HR; Start 10/19/16 at 07:00 Phenylephrine HCl 160 mg/Dextrose 500 ml @ 18.75 mls/ hr TITRATE IV ; Start at 08:00 Norepinephrine 32 mg/Dextrose 250 ml @ 0.46 mls/hr TITRATE IV ; Start 10/19/16 at 08:00 Vancomycin HCl/ Sodium Chloride (Vancocin/NS) 250 ml @ 83.333 mls/ hr ONCE ONCE IVPB ; Start 10/19/16 at 10:00; Stop 10/19/16 at 12:59 ROSLYN MARMOLEJO DO Oct 19, 2016 08:31
[2016-10-19] MEDS ORDERED: DOPamine-D5W 1.6 MG/ML 250 ML ONE (08:39)
--- NOTE | 2016-10-19 08:42 | CONS ---
Date/Time of Note Date/Time of Note DATE: 10/19/16 TIME: 08:36 Assessment/Plan Assessment/Plan Chief Complaint/Hosp Course IMPRESSION: 1. Congestive heart failure, systolic, acute on chronic. 2. Hypotension, on pressor support.-Now max on three different pressors 3. Cardiomyopathy with severely depressed left ventricular ejection fraction, last one approximately 25%. 4. History of paroxysmal atrial fibrillation. 5. Anemia, new onset, severe. 6. Subdural hematomas. 7. Encephalopathy. 8. Chronic respiratory failure, status post tracheostomy. 9. Dysphagia, status post G-tube. 10. Leukocytosis. 11. Renal failure. Recc: -Tele -serial ecg's -Continue abx's and f/u cx data -Continue pressor support with probable need to add additional support -Follow HGb closely and consider transfusion PRBC's Problems: Consultation Date/Type/Reason Admit Date/Time Oct 18, 2016 at 05:12 Initial Consult Date 10/18/2016 Type of Consultation: cardiology Reason for Consultation hypotension Referring Provider: LAINEY AGARWAL Exam/Review of Systems Vital Signs Vitals Vital Signs Date Time Temp Pulse Resp B/P Pulse Ox O2 Delivery O2 Flow Rate FiO2 10/19/16 06:45 80 25 109/37 97 10/19/16 06:15 99.0 Mechanical Ventilator 10/19/16 04:46 50 Intake and Output 10/18/16 10/18/16 10/19/16 15:00 23:00 07:00 Intake Total 800 ml 1616.25 ml Output Total 2000 ml Balance -1200 ml 1616.25 ml Exam Review of Systems: CONSTITUTIONAL: No fevers, chills. PULMONARY: trached on vent CARDIOVASCULAR: No obvious chest pain GASTROINTESTINAL: No nausea/vomiting. GENITOURINARY: No hematuria/dysuria. MUSCULOSKELETAL: No obvious myagias/arthalgias. PSYCHIATRIC: no depression NEUROLOGIC: encephalopathic Constitutional: other (encephalopathy) Psych: no complaints Head: normocephalic ENMT: mucosa pink and moist Neck: jvd (9 cm water), other (TRACHED), supple Respiratory: diminished breath sounds (at bases/b) Cardiovascular: regular rate and rhythm Gastrointestinal: non-tender, soft Extremities: edema (NONE) Neurological: other (ENCEPHALOPATHIC) Results Result Diagram: 10/19/1610 6/15/17 0610 Results 24 hrs Laboratory Tests Test 10/18/16 12:35 10/18/16 13:52 10/18/16 18:25 10/18/16 20:56 Magnesium Level 3.5 H Creatine Kinase 265 H 295 H Creatine Kinase Index 1.7 1.6 Creatinine Kinase MB (Mass) 4.40 H 4.85 H Troponin I 0.234 *H 0.360 *H Random Vancomycin Level 14.4 Hemoglobin 9.0 L Hematocrit 29.6 #L Test 10/19/16 04:50 10/19/16 06:10 10/19/16 06:29 10/19/16 07:02 Bedside Glucose 39 *L 69 L 99 White Blood Count 27.3 #H Red Blood Count 2.65 L Hemoglobin 7.7 L Hematocrit 24.4 L Mean Corpuscular Volume 92.1 Mean Corpuscular Hemoglobin 29.1 Mean Corpuscular Hemoglobin Concent 31.6 L Red Cell Distribution Width 18.7 H Platelet Count 56 L Mean Platelet Volume Neutrophils % 94.0 H Band Neutrophils % 1.0 Lymphocytes % 2.0 L Monocytes % 3.0 Neutrophils # 25.7 H Lymphocytes # 0.5 L Monocytes # 0.8 Platelet Estimate PLT APPEAR DECREASED Prothrombin Time 27.7 #H Prothrombin Time Ratio 2.2 INR International Normalized Ratio 2.54 Activated Partial Thromboplast Time 47.1 H Sodium Level 135 Potassium Level 4.9 Chloride Level 107 Carbon Dioxide Level 16 L Anion Gap 17 H Blood Urea Nitrogen 112 H Creatinine 2.57 H Glucose Level 60 #L Calcium Level 6.4 L Medications Medications Current Medications Docusate Sodium 100 mg 100 mg BID PO ; Start 10/18/16 at 21:00 Sodium Chloride 1,000 ml @ 75 mls/hr [id number] IV Last administered on 00:35; Admin Dose 75 MLS/HR; Start 10/18/16 at 12:30 Cefepime HCl 50 ml @ 100 mls/hr Q12 IVPB Last administered on 10/18/16 21:03 ; Admin Dose 100 MLS/HR; Start 10/18/16 at 12:30 Pantoprazole 80 mg/Sodium Chloride 100 ml @ 10 mls/hr Q10H IV Last administered on 10/18/16 19:56; Admin Dose 10 MLS/HR; Start 10/18/16 at 18:30 Vasopressin 60 unit/Dextrose 60 ml @ 1.2 mls/hr Q12H IV Last administered on t 08:21; Admin Dose 1.2 MLS/HR; Start 10/19/16 at 07:00 Phenylephrine HCl 160 mg/Dextrose 500 ml @ 18.75 mls/ hr TITRATE IV ; Start at 08:00 Norepinephrine 32 mg/Dextrose 250 ml @ 0.46 mls/hr TITRATE IV ; Start 10/19/16 at 08:00 Vancomycin HCl/ Sodium Chloride (Vancocin/NS) 250 ml @ 83.333 mls/ hr ONCE ONCE IVPB ; Start 10/19/16 at 10:00; Stop 10/19/16 at 12:59 MATHEW AMADO Oct 19, 2016 08:42
[2016-10-19] MEDS ORDERED: DOPamine 1,600 MG in DEXTROSE 5% 210 ML IV SCH (09:00)
[2016-10-19] MEDS: DOCUSATE SODIUM 100 MG CAP PO SCH (09:12)
[2016-10-19] MEDS: CEFEPIME 1GM/50 ML (PMX) 50 ML IVPB SCH (09:12)
[2016-10-19] MEDS ORDERED: CA CHLORIDE 10% 10 ML SYRINGE IV ONE (09:30)
[2016-10-19] MEDS ORDERED: VANCOMYCIN 1.25 GM in SOD CHLORIDE 0.9% 250 ML IVPB ONE (10:00)
[2016-10-19] MEDS ORDERED: INSULIN ASPART [NOVOLOG] 3 ML PEN SC SCH (10:00)
--- NOTE | 2016-10-19 11:17 | CONS ---
Date/Time of Note Date/Time of Note DATE: 10/19/16 TIME: 11:12 Assessment/Plan Assessment/Plan Additional Assessment/Plan Chest x-ray was reviewed from yesterday which is showing severe bilateral pneumonia. Current ventilator settings; AC of 10, tidal volume 450, PEEP of 5, 50% FiO2. Patient currently on vasopressin 0.01 U/min, Levophed 30 mics per minute, dopamine 1 mcg/min. Assessment recommendations; 1. Patient admitted for severe sepsis from pneumonia. 2. Severe hypotension. 3. Anemia and thrombocytopenia. 4. Advanced dementia. Patient remains chronically ventilator dependent. 5. History of G-tube and tracheostomy in the past. 6. History of cardiac arrhythmia. Continue current supportive care. Prognosis is very poor. Consultation Date/Type/Reason Admit Date/Time Oct 18, 2016 at 05:12 Date of Consultation: Oct 19, 2016 Type of Consultation: Pulmonary/critical care Reason for Consultation Pulmonary consultations requested for evaluation of sepsis and pneumonia. History of presenting any; patient is a 76-year-old white woman who was transferred from [facility] because of hypotension. Upon evaluation a chest x-ray was done which is showing severe bilateral pneumonia. The patient has been admitted to ICU and maintained on mechanical ventilation with high- dose pressor support. Because of history of anoxic brain injury patient remains completely unresponsive and this is her underlying mental status. History was obtained from medical records. Past medical history; 1. History of cardiac arrhythmia, status post pacemaker in the past. 2. Chronic respiratory failure. 3. Advanced dementia. 4. History of anemia and thrombocytopenia. 5. Status post tracheostomy and G-tube placement. Allergies; are to lisinopril. Social history; not available. Family history, occupational histories and review of systems unable to be obtained. General exam; elderly woman, on ventilator via tracheostomy unresponsive. Psychological: no complaints Past Surgical History Past Surgical Hx: other Social History Alcohol Use: none Smoking Status: Unknown if ever smoked Drug Use: none Exam/Review of Systems Vital Signs Vitals Vital Signs Date Time Temp Pulse Resp B/P Pulse Ox O2 Delivery O2 Flow Rate FiO2 10/19/16 08:56 39 24 10/19/16 07:25 97 50 10/19/16 06:45 109/37 10/19/16 06:15 99.0 Mechanical Ventilator Intake and Output 10/18/16 10/18/16 10/19/16 15:00 23:00 07:00 Intake Total 800 ml 1616.25 ml Output Total 2000 ml 15 ml Balance -1200 ml 1601.25 ml Exam HEENT examination; supple neck, positive JVD. No lymphadenopathy. Midline trachea. No thyromegaly. Patient is edentulous. Pupils are small. Trach ostomy placed with clean insertion site. Chest examination; diminished breath sounds bilaterally. With scattered crackles. S1-S2 audible, no murmurs. Irregular rhythm. There is a pacemaker in the left chest wall. Abdomen examination; soft, nondistended. No organomegaly. G-tube in place. Bowel sounds are sluggish. Extremity exam is; 1+ generalized anasarca. Multiple ecchymoses are present in all 4 extremities. SYSTEMS ENGINEER examination; patient remains unresponsive. Results Result Diagram: 10/19/16 0610 10/19/16 0610 Results 24 hrs Laboratory Tests Test 10/18/16 12:35 10/18/16 13:52 10/18/16 18:25 10/18/16 20:56 Magnesium Level 3.5 H Creatine Kinase 265 H 295 H Creatine Kinase Index 1.7 1.6 Creatinine Kinase MB (Mass) 4.40 H 4.85 H Troponin I 0.234 *H 0.360 *H Random Vancomycin Level 14.4 Hemoglobin 9.0 L Hematocrit 29.6 #L Test 10/19/16 04:50 10/19/16 06:10 10/19/16 06:29 10/19/16 07:02 Bedside Glucose 39 *L 69 L 99 White Blood Count 27.3 #H Red Blood Count 2.65 L Hemoglobin 7.7 L Hematocrit 24.4 L Mean Corpuscular Volume 92.1 Mean Corpuscular Hemoglobin 29.1 Mean Corpuscular Hemoglobin Concent 31.6 L Red Cell Distribution Width 18.7 H Platelet Count 56 L Mean Platelet Volume Neutrophils % 94.0 H Band Neutrophils % 1.0 Lymphocytes % 2.0 L Monocytes % 3.0 Neutrophils # 25.7 H Lymphocytes # 0.5 L Monocytes # 0.8 Platelet Estimate PLT APPEAR DECREASED Prothrombin Time 27.7 #H Prothrombin Time Ratio 2.2 INR International Normalized Ratio 2.54 Activated Partial Thromboplast Time 47.1 H Sodium Level 135 Potassium Level 4.9 Chloride Level 107 Carbon Dioxide Level 16 L Anion Gap 17 H Blood Urea Nitrogen 112 H Creatinine 2.57 H Glucose Level 60 #L Calcium Level 6.4 L Test 10/19/16 10:42 Bedside Glucose 96 Medications Medications Current Medications Docusate Sodium 100 mg 100 mg BID PO Last administered on 10/19/16 09:12; Admin Dose 100 MG; Start 10/18/16 at 21:00 Sodium Chloride 1,000 ml @ 75 mls/hr [id number] IV Last administered on 00:35; Admin Dose 75 MLS/HR; Start 10/18/16 at 12:30 Cefepime HCl 50 ml @ 100 mls/hr Q12 IVPB Last administered on 10/19/16 09:12 ; Admin Dose 100 MLS/HR; Start 10/18/16 at 12:30 Pantoprazole 80 mg/Sodium Chloride 100 ml @ 10 mls/hr Q10H IV Last administered on 10/18/16 19:56; Admin Dose 10 MLS/HR; Start 10/18/16 at 18:30 Vasopressin 60 unit/Dextrose 60 ml @ 1.2 mls/hr Q12H IV Last administered on 08:21; Admin Dose 1.2 MLS/HR; Start 10/19/16 at 07:00 Phenylephrine HCl 160 mg/Dextrose 500 ml @ 18.75 mls/ hr TITRATE IV Last administered on 10/19/16 10:54; Admin Dose 56.25 MLS/HR; Start 10/19/16 at 08: 00 Norepinephrine 32 mg/Dextrose 250 ml @ 0.46 mls/hr TITRATE IV Last administered on 10/19/16 11:06; Admin Dose 14.06 MLS/HR; Start 10/19/16 at 08: 00 Vancomycin HCl 1.25 gm/Sodium Chloride 250 ml @ 83.333 mls/ hr ONCE ONCE IVPB Last administered on 10/19/16 10:31; Admin Dose 83.333 MLS/HR; Start at 10:00; Stop 10/19/16 at 12:59 Dopamine HCl/ Dextrose (D5W) 250 ml @ 1.7 mls/hr TITRATE IV ; Start 10/19/16 at 09:00 Insulin Aspart (Novolog Insulin Pen) NOVOLOG *MILD* ALGORI... Q4 SC ; Start at 10:00 JAY LEONARDO Oct 19, 2016 11:17
[2016-10-19] MEDS ORDERED: GLUCAGON 1 MG INJ IM PRN (11:30)
[2016-10-19] MEDS ORDERED: DEXTROSE 50% 50 ML SYRINGE IV PRN ×2 (11:30)
[2016-10-19] MEDS ORDERED: GLUCOSE GEL 15 GRAM TUBE BUCCAL PRN (11:30)
[2016-10-19] MEDS ORDERED: GLUCOSE GEL 15 GRAM TUBE PO PRN ×2 (11:30)
--- NOTE | 2016-10-19 11:58 | PN ---
Date/Time of Note Date/Time of Note DATE: 10/19/16 TIME: 11:50 Assessment/Plan VTE Prophylaxis VTE Prophylaxis Intervention: SCD's VTE Contraindication Reason: thrombocytopenia Lines/Catheters IV Catheter Type (from Nrs): PICC Line Central line still needed: Yes Urinary Cath still in place: Yes Reason Cath still needed: terminal illness/intractable pain Assessment/Plan Assessment/Plan 76-year-old female sent from [place] with the following problems: 1. Septic shock with probable hypovolemic components: Now on 3 pressors 2. GI bleed (Acute , Active) 3. Bilateral pneumonia 4. Chronic respiratory failure ventilator dependent via tracheostomy 5. 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 Recent severe intracranial hemorrhage 7. Chronic dysphagia status post PEG tube 8. Elevated troponin is likely secondary to demand ischemia 9. Acute anemia likely secondary to blood loss 10. Paroxysmal atrial fibrillation on digoxin and beta-yessy 11. Chronic cardiomyopathy likely ischemic status post AICD 12. Chronic hypothyroidism 13. Elevated digoxin levels PLAN: * Intensive care unit admission and monitoring * NM brain perfusion scan to eval for brain * Continue Protonix drip/ Appreciate GI consult / we have to avoid anticoagulation in the setting of GI bleed and recent intracerebral hemorrhage * Continue Broad-spectrum antibiotics/ f/u pancultures / ventilator support * Continue low intermittent suction / continue to hold tube feeds / FSBS q4 * Blood transfusion not tolerated /Continue gentle hydration / Continue pressor support * Appreciate Cardiology consultation / elevated troponins noted / f/u cardio recs / we have to avoid aspirin and Plavix at this time * Hold digoxin / ? Trend levels / follow cardiology recommendations * Continue Synthroid IV ? * HD per renal Further interventions per clinical course Long-term prognosis extremely grim / Patient possibly brain / family updated of clinical status / recommend DNR status. Critical care time 45mins Subjective 24 Hr Interval Summary Free Text/Dictation Patient now requiring 3 pressors. Blood transfusion was again complicated by of hypotension yesterday, despite transfusion reaction workup and was told that the blood pressure improved once transfusion was stopped. Subjective hx not possible: pt non-verbal, pt critical status Exam/Review of Systems Vital Signs Vitals Vital Signs Date Time Temp Pulse Resp B/P Pulse Ox O2 Delivery O2 Flow Rate FiO2 10/19/16 11:00 80 23 75/48 100 Mechanical Ventilator 10/19/16 08:00 98.6 10/19/16 07:25 50 Intake and Output 10/18/16 10/18/16 10/19/16 15:00 23:00 07:00 Intake Total 800 ml 1616.25 ml Output Total 2000 ml 15 ml Balance -1200 ml 1601.25 ml Exam Constitutional: non-verbal, other (obese, elderly, Patient barely responsive, not following commands or tracking), Eyes no longer open spontaneously, No oriented, No distress Psych: other (unable to assess) Head: normocephalic Eyes: Pupils now fixed and dilated No icteric ENMT: NG tube with coffee-ground substance No mucosa pink and moist (dry) Neck: non-tender tracheostomy to ventilator, Respiratory: diminished breath sounds, + bibasal crackles No labored breathing Cardiovascular: regular rate and rhythm, No murmurs/extra sounds Gastrointestinal: soft, non-tender, bowel sounds, other (PEG tube noted with no cellulitis or discharge) rectal tube with black stools, Genitourinary - Female: nl external genitalia Extremities: Diffuse muscle wasting, bilateral foot in boots without obvious edema, bilateral upper extremity with significant edema however and ecchymosis Neurological: other (altered, eyes opening spontaneously but no tracking or following commands), No nl mental status, No nl speech, No nl strength Results Result Diagram: 10/19/16 0610 10/19/16 0610 Results 24 hrs Laboratory Tests Test 10/18/16 12:35 10/18/16 13:52 10/18/16 18:25 10/18/16 20:56 Magnesium Level 3.5 H Creatine Kinase 265 H 295 H Creatine Kinase Index 1.7 1.6 Creatinine Kinase MB (Mass) 4.40 H 4.85 H Troponin I 0.234 *H 0.360 *H Random Vancomycin Level 14.4 Hemoglobin 9.0 L Hematocrit 29.6 #L Test 10/19/16 04:50 10/19/16 06:10 10/19/16 06:29 10/19/16 07:02 Bedside Glucose 39 *L 69 L 99 White Blood Count 27.3 #H Red Blood Count 2.65 L Hemoglobin 7.7 L Hematocrit 24.4 L Mean Corpuscular Volume 92.1 Mean Corpuscular Hemoglobin 29.1 Mean Corpuscular Hemoglobin Concent 31.6 L Red Cell Distribution Width 18.7 H Platelet Count 56 L Mean Platelet Volume Neutrophils % 94.0 H Band Neutrophils % 1.0 Lymphocytes % 2.0 L Monocytes % 3.0 Neutrophils # 25.7 H Lymphocytes # 0.5 L Monocytes # 0.8 Platelet Estimate PLT APPEAR DECREASED Prothrombin Time 27.7 #H Prothrombin Time Ratio 2.2 INR International Normalized Ratio 2.54 Activated Partial Thromboplast Time 47.1 H Sodium Level 135 Potassium Level 4.9 Chloride Level 107 Carbon Dioxide Level 16 L Anion Gap 17 H Blood Urea Nitrogen 112 H Creatinine 2.57 H Glucose Level 60 #L Calcium Level 6.4 L Test 10/19/16 10:42 Bedside Glucose 96 Medications Medications Current Medications Docusate Sodium 100 mg 100 mg BID PO Last administered on 10/19/16 09:12; Admin Dose 100 MG; Start 10/18/16 at 21:00 Sodium Chloride 1,000 ml @ 75 mls/hr [id number] IV Last administered on 00:35; Admin Dose 75 MLS/HR; Start 10/18/16 at 12:30 Cefepime HCl 50 ml @ 100 mls/hr Q12 IVPB Last administered on 10/19/16 09:12 ; Admin Dose 100 MLS/HR; Start 10/18/16 at 12:30 Pantoprazole 80 mg/Sodium Chloride 100 ml @ 10 mls/hr Q10H IV Last administered on 10/18/16 19:56; Admin Dose 10 MLS/HR; Start 10/18/16 at 18:30 Vasopressin 60 unit/Dextrose 60 ml @ 1.2 mls/hr Q12H IV Last administered on 08:21; Admin Dose 1.2 MLS/HR; Start 10/19/16 at 07:00 Phenylephrine HCl 160 mg/Dextrose 500 ml @ 18.75 mls/ hr TITRATE IV Last administered on 10/19/16 10:54; Admin Dose 56.25 MLS/HR; Start 10/19/16 at 08: 00 Norepinephrine 32 mg/Dextrose 250 ml @ 0.46 mls/hr TITRATE IV Last administered on 10/19/16 11:06; Admin Dose 14.06 MLS/HR; Start 10/19/16 at 08: 00 Vancomycin HCl 1.25 gm/Sodium Chloride 250 ml @ 83.333 mls/ hr ONCE ONCE IVPB Last administered on 10/19/16t 10:31; Admin Dose 83.333 MLS/HR; Start at 10:00; Stop 10/19/16 at 12:59 Dopamine HCl/ Dextrose (D5W) 250 ml @ 1.7 mls/hr TITRATE IV ; Start 10/19/16 at 09:00 Insulin Aspart (Novolog Insulin Pen) NOVOLOG *MILD* ALGORI... Q4 SC ; Start at 10:00 Miscellaneous Information 1 ea NOTE XX ; Start 10/19/16 at 11:30 Glucose (Glutose) 15 gm Q15M PRN PO DECREASED GLUCOSE; Start 10/19/16 at 11:30 Glucose (Glutose) 22.5 gm Q15M PRN PO DECREASED GLUCOSE; Start 10/19/16 at 11: 30 Dextrose (D50w Syringe) 25 ml Q15M PRN IV DECREASED GLUCOSE; Start 10/19/16 at 11:30 Dextrose (D50w Syringe) 50 ml Q15M PRN IV DECREASED GLUCOSE; Start 10/19/16 at 11:30 Glucagon (Glucagen) 1 mg Q15M PRN IM DECREASED GLUCOSE; Start 10/19/16 at 11:30 Glucose (Glutose) 15 gm Q15M PRN BUCCAL DECREASED GLUCOSE; Start 10/19/16 at 11 :30 LAINEY AGARWAL Oct 19, 2016 11:58
--- NOTE | 2016-10-19 13:27 | QN ---
Documentation Comment I was called out of the emergency department to room 120 for a CODE BLUE event. The patient was receiving high-quality CPR and being bagged by respiratory therapy. I immediately took over as the CODE BLUE leader and ran the code. Please see the code sheet for full details. The patient received multiple doses of epinephrine, 1 amp of bicarbonate. The final results of the CODE BLUE was patient was pronounced at 1229. HPI: Please note the history and physical exam is limited as the patient is receiving CPR at this time. The patient is in full cardiac arrest. Physical exam: The patient is being bagged by respiratory therapy. There is no movement. GCS is 3. BREANA CANNON MD Oct 19, 2016 13:27
--- NOTE | 2016-10-19 16:32 | DES ---
Date/Time of Note Date/Time of Note DATE: 10/19/16 TIME: 16:26 Discharge/ Summary Admission/Discharge Info Admit Date/Time Oct 18, 2016 at 05:12 Discharge Date/Time Oct 19, 2016 at 12:29 Final Diagnosis 1. Septic shock with probable hypovolemic components: 2. GI bleed (Acute , Active) 3. Bilateral pneumonia 4. Chronic respiratory failure ventilator dependent via tracheostomy 5. 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 Recent severe intracranial hemorrhage 7. Chronic dysphagia status post PEG tube 8. Elevated troponin is likely secondary to demand ischemia 9. Acute anemia likely secondary to blood loss 10. Paroxysmal atrial fibrillation on digoxin and beta-yessy 11. Chronic cardiomyopathy likely ischemic status post AICD 12. Chronic hypothyroidism 13. Elevated digoxin levels . Preliminary Cause of Multiorgan failure secondary to shock . . Hx of Present Illness Presenting complaint: Hypotension History of presenting complaint: 76-year-old female with chronic encephalopathy following spontaneous Intracranial bleed with intraparenchymal hematoma and bilateral subdural hematoma who was transferred to [facility] ( [place] ) after tracheostomy and PEG tube placement, who remains critically ventilator dependent secondary to encephalopathy. While at [place], she was found to have coffee-ground emesis from her PEG tube as well as from a rectal tube, and an NG tube also was placed to suction and that also produced black substances. She was s also found to have a low hemoglobin that to be secondary to GI bleed. She was getting a blood transfusion for that; however during the transfusion her blood pressure dropped dangerously low levels. Based on that she was referred back to [facility] for further management and intervention. As there are no ICU beds open, the patient is being observed in the emergency room. Here in the emergency room, she has been started on pressor support and her blood pressure has responded well. She is also been started on IV fluid hydration. She is being worked up for a transfusion reaction after which she will receive blood transfusion per my orders. At this time the patient is chronically encephalopathic, nonverbal, does not follow commands, does not track even though she will open her eyes spontaneously. I spoken with her daughter at the bedside, daughter reiterates that her mother remains a full code. Chest x-ray done here reviewed showed that the patient might have some persistent pneumonia, she was treated with antibiotics and completed her course prior to being transferred on her last admission. However radiology reports chest x-ray as looking worse, and so she will be restarted on intravenous antibiotics. We will also panculture to adequately define organisms. She is planned for intensive care unit admission and monitoring. There has been no report or documentation of fever however. Hospital Course This is a 76-year-old female sustained a recent severe intracranial hemorrhage that had left her in the vegetative state with chronic encephalopathy who had, chronic respiratory failure ventilator dependent via tracheostomy, chronic dysphagia on PEG tube feedings. She had been discharged to [facility] from where she was referred back to us for severe anemia and evidence of GI bleeding. She was admitted on this hospitalization with septic shock with a component of hypovolemia from GI bleeding but unfortunately was unable to tolerate blood transfusion as she kept getting hypotensive during this transfusion. Of note is that the patient also had developed end-stage renal disease and was requiring hemodialysis also. Her comorbidities included elevated troponin likely secondary to demand ischemia , she also had a history of paroxysmal atrial fibrillation, she was noted to have a chronic cardiomyopathy with a last known ejection fraction of 25% for which she had had an AICD, she had chronic hypothyroidism and she also had a bilateral pneumonia that was contributing to her sepsis. The patient had a very poor prognosis given on admission. This was communicated to her family but they wanted everything done. On the first day of her admission she was already requiring pressor support for hypotension, a few hours after that she was requiring 3 different pressors. As the past on, her pressor requirements increased and despite aggressive care the patient eventually lost the pulse. CODE BLUE was called and the patient was resuscitated according to ACLS protocol. After unsuccessful resuscitation, the patient was eventually pronounced . Her daughter was at the bedside at the time of pronouncement. Pending Labs/Cultures Laboratory Tests Test 10/18/16 18:25 10/18/16 20:56 10/19/16 04:50 10/19/16 06:10 Creatine Kinase 295IU/L (23-200) Creatine Kinase Index 1.6 Creatinine Kinase MB (Mass) 4.85ng/ml (0.0-2.4) Troponin I 0.360ng/ml (0.00-0.12) Hemoglobin 9.0g/dl (12.0-16.0) 7.7g/dl (12.0-16.0) Hematocrit 29.6% (37.0-47.0) 24.4% (37.0-47.0) Bedside Glucose 39mg/dL (70-220) White Blood Count 27.310^3/ul (4.8-10.8) Red Blood Count 2.6510^6/ul (4.20-5.40) Mean Corpuscular Volume 92.1fl (82.0-101.0) Mean Corpuscular Hemoglobin 29.1pg (29.0-33.0) Mean Corpuscular Hemoglobin Concent 31.6g/dl (32.0-37.0) Red Cell Distribution Width 18.7% (11.5-14.5) Platelet Count 5610^3/UL (140-415) Mean Platelet Volume fl (7.4-10.4) Neutrophils % 94.0% (39.0-77.0) Band Neutrophils % 1.0% (0.0-5.0) Lymphocytes % 2.0% (15.0-51.0) Monocytes % 3.0% (0.0-11.0) Neutrophils # 25.710^3/ul (1.6-7.5) Lymphocytes # 0.510^3/ul (0.8-2.9) Monocytes # 0.810^3/ul (0.3-0.9) Platelet Estimate PLT APPEAR DECREASED Prothrombin Time 27.7Sec (12.2-14.2) Prothrombin Time Ratio 2.2 INR International Normalized Ratio 2.54 Activated Partial Thromboplast Time 47.1Sec (25.0-35.0) Sodium Level 135mmol/L (135-144) Potassium Level 4.9mmol/L (3.5-5.1) Chloride Level 107mmol/L (97-110) Carbon Dioxide Level 16mmol/L (21-31) Anion Gap 17 (8-16) Blood Urea Nitrogen 112mg/dl (7-20) Creatinine 2.57mg/dl (0.44-1.00) Glucose Level 60mg/dl (70-220) Calcium Level 6.4mg/dl (8.4-10.2) Test 10/19/16 06:29 10/19/16 07:02 10/19/16 10:42 10/19/16 12:26 Bedside Glucose 69mg/dL (70-220) 99mg/dL (70-220) 96mg/dL (70-220) 86mg/dL (70-220) LAINEY AGARWAL Oct 19, 2016 16:32
== END 2016-10-19 12:29 | disposition expired | DRG 871 ==
LOC: E/R 04:55 → UNDOADMIN 05:12 → ICU 05:12 → UNDODISIN 10-19 12:29
PROVIDERS: ADMIT Family Medicine; ATTEND Family Medicine
PROC: 5A1D60Z (ICD-10-PCS; principal; 2016-10-18)
PROC: 5A1945Z Respiratory Ventilation, 24-96 Consecutive Hours (ICD-10-PCS; 2016-10-18)
PROC: 5A12012 Performance of Cardiac Output, Single, Manual (ICD-10-PCS; 2016-10-19)
DX: A41.9 Sepsis, unspecified organism (principal); J18.9 Pneumonia, unspecified organism; N17.0 Acute kidney failure with tubular necrosis; R65.21 Severe sepsis with septic shock; G93.40 Encephalopathy, unspecified; I50.23 Acute on chronic systolic (congestive) heart failure; Z99.11 Dependence on respirator [ventilator] status; R40.3 Persistent vegetative state; I13.0 Hypertensive heart and chronic kidney disease with heart failure and stage 1 through stage 4 chronic kidney disease, or unspecified chronic kidney disease; J96.10 Chronic respiratory failure, unspecified whether with hypoxia or hypercapnia; K92.2 Gastrointestinal hemorrhage, unspecified; I24.8 Other forms of acute ischemic heart disease; D62 Acute posthemorrhagic anemia; I48.0 Paroxysmal atrial fibrillation; R13.10 Dysphagia, unspecified; I25.5 Ischemic cardiomyopathy; Z93.1 Gastrostomy status; E03.9 Hypothyroidism, unspecified; I25.10 Atherosclerotic heart disease of native coronary artery without angina pectoris; Z95.0 Presence of cardiac pacemaker; N18.9 Chronic kidney disease, unspecified
CPT/HCPCS: 36415; 36430; 71010; 80048; 80053; 80202; 82550; 82553; 82962; 83735; 83880; 84484; 85014; 85018; 85025; 85610; 85730; 86078; 86850; 86900; 86901; 86920; 87040; 90935; 92950; 94002; 94003; 96365; 96366; 96368; 96375; 96376; C9113; J0171; J0692; J1265; J1815; J1940; J2370; J2597; J3370; J7030; J7050; J7060; J7070; P9016